=== PATIENT | male | born 1950 | race Caucasian/White ===

== ENCOUNTER → 2017-09-17 09:25 | Outpatient (CLI) | payer OTHER, SELFPAY ==
[2017-09-17 12:24] LABS: Absolute Lymphocyte Count 1.58 X10^3/ul (0.83-4.51); Absolute Neutrophil Count 4.3 X10^3/uL (2.0-7.7); Basophil# 0.08 X10^3/uL; Basophil% 1.2 % (0-1); Eosinophil# 0.14 X10^3/uL; Eosinophils% 2.1 % (0-5); Hematocrit 26.2 % (40-54); Hemoglobin 7.7 g/dl (13.0-16.5); Lymphocyte # 1.58 X10^3/ul (4.0); Lymphocyte % 23.2 % (19-41); Mean Corp Hgb Conc 29.4 g/gl (32-36); Mean Corpuscular Hgb 22.4 pg (27.0-32.0); Mean Corpuscular Volume 76.2 fL (80-94); Mean Platelet Vol. 12.3 fl (6.2-12.0); Monocyte# 0.72 X10^3/uL; Monocyte% 10.6 % (0-10); Neutrophil # 4.28 X10^3/uL (2.7-7.7); Neutrophil % 62.8 % (47-70); Platelet Count 254 K/mm3 (150-450); RBC Distribution Width CV 17.7 % (11.6-14.6); RBC Distribution Width SD 46.1 fl (35.1-43.9); Red Blood Count 3.44 M/mm3 (4.6-6.2); White Blood Count 6.8 K/mm3 (4.4-11.0)
[2017-09-17 12:26] LABS: POSITIVE COUNT NO; POSITIVE DIFFERENTIAL NO; POSITIVE MORPHOLOGY NO
[2017-09-17 12:43] LABS: Alanine Aminotransfer ALT/SGPT 23 U/L (16-61); Anion Gap 8 (5-15); BUN 16 mg/dL (7-18); BUN/Creat Ratio 22.1 RATIO (10-20); Calcium,Total 8.7 mg/dL (8.5-10.1); Chloride 106 mmol/L (98-107); Cholesterol 132 mg/dL (200); Creatinine, Serum 0.72 mg/dL (0.70-1.30); EST Glomerular Filtration Rate 115 mL/min (>60); Est Glom Filt Rate - Afr Amer 139 mL/min (>60); Glucose 88 mg/dL (74-106); High Density Lipoprotein 55 mg/dL; Iron 15 ug/dL (65-175); Iron Binding Capacity,Total 342 ug/dL (250-450); Potassium 4.2 mmol/L (3.5-5.1); Sodium Level 140 mmol/L (136-145); Triglycerides 112 mg/dL; Very Low Density Lipoprotein 22 mg/dL (5-40)
== END ==
DX: E78.00 Pure hypercholesterolemia, unspecified (principal); I10 Essential (primary) hypertension; D50.9 Iron deficiency anemia, unspecified
CPT/HCPCS: 36415; 80048; 80061; 83540; 83550; 84443; 84460; 85025

== ENCOUNTER 2018-04-30 13:30 | Outpatient (RCR) | payer OTHER, SELFPAY ==
--- NOTE | 2018-01-13 17:06 | HP.PTEVAL ---
Patient's Visit Information MIHAI LAURENT is a 67 year old M referred to Physical Therapy by GERSON LORENZANA with a diagnosis of gait instability, freq falls. Date of Evaluation: 01/13/18 Physical Therapist: Azucena Bland - Visit Plan Frequency: 2x /Week Duration: 6 Weeks Plan: 2X/ week for 6 weeks for hip, knee, ankle, and core strengthening, gait training, balance activities, functional activities such as curb steps, sit to stands with HEP (HEP given at time of eval: bridges, CLAM shells, standing heel and toe raises holding onto chair, and seated heel and toe raises for circualation) - Subjective Subjective: Pt reports that he has swollen legs for a few weeks now. Dr has no idea why he has swollen legs. He has COPD and circulatory issues and could be related to that. Pt has been on compression socks since last week and he is soaking feet in Epsom salts at night and puts feet up at night....They think that it has helped some. His feet hurt when he walks. is concerned about his Quad strength and keeping him mobile. For last 5 years he has not worked since his heart attack and very sedentary. He has drop foot on L leg...better than what it was... almost tripped on the way in here today. In the summer he goes to [employer] and back and that is it. 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 Pt has a double scoliosis and pain in his spine for which he goes to pain management. He does not want to do PT and does not want to exercise. He likes to read mostly.... He does not work around the house. He still drives. He falls a lot....had some bad falls (cracked open face at [employer], fallen and cracked ribs at home). He had an open heart surgery and was in surgery for 12 hours and they think that he was in that position for too long. Drop foot increases when tired. He is ok on stairs as long as he has a hand rail. He lives in an anti-gravity chair. He has pushes up on the vanity in the bathroom.. Curb steps...he thinks he can do ok with it. Has O2 at night or sitting in a chair to help with circulation with his feet. - Pain c-spine Pain Intensity (Out of 10): 6 L arm pain Pain Intensity (Out of 10): 0 Comment: comes and goes with angina upper back pain Pain Intensity (Out of 10): 6 - Objective sit to stand...unable to get up with out using his arms. LE MMT: hip abd B 4/5, hip ext B 3-/5, hip flex B 3+/5, knee flex B 4-/5, knee ext B 4-/5, Able to heel raise, able to toe raise on the R but not on the L, Pt only able to do 1//4 ROM bridge. L drop foot. Pt has pretty significant scoiliosis. Gait: walks with increase veering, increase hip flexion and knee flexion to clear L foot. Tight B heel cords. FGA: 8 (high risk for falls) - Balance Scores Functional Gait Assessment Score: 8 % Disability: 73.3400 - Goals Goal 1:: I HEP Goal Time Frame: 4-6 Weeks Goal 2:: Increase FGA by 5 points to 13 to decrease fall risk Goal Time Frame: 4-6 Weeks Goal 3:: Be able to get up out of a chair without the use of his UE's 1/3 attempts Goal Time Frame: 4-6 Weeks Goal 4:: Increase LE strength by 1/2 muscle grade to increase fucntional transfers and decrease fall risk. Goal Time Frame: 4-6 Weeks - Rehabilitation Potential Rehabilitation Potential: Good - Anticipated Interventions Patient/Client Instruction: Educate patient on: Condition, Plan of Care For the Purpose of:: To decrease swelling/inflammation, To increase ROM, To improve nutrient delivery to tissue, To improve muscle performance and motor function, To improve ability to perform ADL's, To increase tolerance to activity/condition/position, To improve performance and independence with ADL's, To improve ability of physical actions for home/community/work/leisure, To improve gait and locomotor functions, To increase flexibility/ROM, To improve balance, To improve safety with gait Therapeutic Exercise to Include: Strength training, Balance training, Postural training, Gait and locomotor training, Passive ROM, Dynamic Lumbar Stabilization, Scapular Strength/Stabilization For the Purpose of:: To increase ROM, To improve nutrient delivery to tissue, To increase oxygenation perfusion, To improve muscle performance and motor function, To improve ability to perform ADL's, To increase tolerance to activity/condition/position, To improve performance and independence with ADL's, To improve ability of physical actions for home/community/work/leisure, To improve gait and locomotor functions, To increase flexibility/ROM, To improve balance, To improve safety with gait Functional Training to Include: Gait training For the Purpose of:: To improve gait and locomotor functions, To improve safety with gait Thank you for the opportunity to evaluate your patient. For Medicare and Medicare HMO plans, please review the plan of care and approve it. It will need to be FAXED BACK to us at [phone] for Medicare purposes. Please let me know if there are questions or concerns regarding this plan of care. Physician Signature: Date:
--- NOTE | 2018-04-06 16:42 | HP.PTREVAL_ITS ---
GERSON LORENZANA, It has been my pleasure to treat MIHAI LAURENT over the last 19 visits for gait instability, freq falls. Please see the progress note below for an update on the physical therapy plan of care! Subjective: Pt reports that he will go home and do a little exercises but not much. He notices increase strength (approx 30). Objective/Function: FGA 10. LE MMT: hip flex B 4-/5, B knee flex 4-/5, B knee ext 4-/5, jip abd B 4-/5 Plan Plan: Issued HEP today and will see pt 2X/ week for 3 weeks with the pt doing HEP at home to reach goals especially with ease of getting our of a chair Goals Goal 1:: I HEP Goal Time Frame: 4-6 Weeks Goal 2:: Increase FGA by 5 points to 13 to decrease fall risk Goal Time Frame: 4-6 Weeks Goal Progress: Progressing Goal 3:: Be able to get up out of a chair without the use of his UE's 1/3 attempts Goal Time Frame: 4-6 Weeks Goal 4:: Increase LE strength by 1/2 muscle grade to increase fucntional transfers and decrease fall risk. Goal Time Frame: 4-6 Weeks Anticipated Interventions Patient/Client Instruction: Educate patient on: Condition, Plan of Care For the Purpose of:: To decrease swelling/inflammation, To increase ROM, To improve nutrient delivery to tissue, To improve muscle performance and motor function, To improve ability to perform ADL's, To increase tolerance to activity/condition/position, To improve performance and independence with ADL's, To improve ability of physical actions for home/community/work/leisure, To improve gait and locomotor functions, To increase flexibility/ROM, To improve balance, To improve safety with gait Therapeutic Exercise to Include: Strength training, Balance training, Postural training, Gait and locomotor training, Passive ROM, Dynamic Lumbar Stabi lization, Scapular Strength/Stabilization For the Purpose of:: To increase ROM, To improve nutrient delivery to tissue, To increase oxygenation perfusion, To improve muscle performance and motor function, To improve ability to perform ADL's, To increase tolerance to activity/condition/position, To improve performance and independence with ADL's, To improve ability of physical actions for home/community/work/leisure, To improve gait and locomotor functions, To increase flexibility/ROM, To improve balance, To improve safety with gait Functional Training to Include: Gait training For the Purpose of:: To improve gait and locomotor functions, To improve safety with gait Please do not hesitate to contact me at [phone] by phone or if you have questions or concerns regarding this new plan of care! Sincerely, Azucena Bland
--- NOTE | 2018-04-30 14:18 | HP.PTDCSUM ---
HP - PT D/C Summary It has been my pleasure to treat MIHAI LAURENT under orders from GERSON LORENZANA, for the diagnosis of gait instability, freq falls for a total of 25 visit(s). Discharge Date: 04/30/18 Please see the following information for a summary of their discharge status. - Subjective Subjective: Pt is doing some leg exercises at home. He feels that he has made some improvement. Pt has to make a follow up appointment with his Dr. - Pain c-spine Pain Intensity (Out of 10): 6 L arm pain Pain Intensity (Out of 10): Unrated upper back pain Pain Intensity (Out of 10): 6 - Overall Improvement % Improvement: 30 - Objective Objective/Function: At this point I feel that the patients balance is limited by his L drop foot and the extreme weakness in his L leg. He might benefit from an AFO at this point. L leg MMT: hip flex 3+/5, knee ext 3-/4, knee flex 4-/5, hip abd 3+/5, DF 3-/5. Sit to stand: not able to get up out of a chair without the use of his UE. Gait: increased veering wtih gait, unable to walk with his eyes closed as he needs min A to help correct off balance. FGA 10 - Goals Goal 1:: I HEP Goal Progress: Goal Met Goal 2:: Increase FGA by 5 points to 13 to decrease fall risk Goal Progress: Progressing Goal 3:: Be able to get up out of a chair without the use of his UE's 1/3 attempts Goal 4:: Increase LE strength by 1/2 muscle grade to increase fucntional transfers and decrease fall risk. Goal Progress: Progressing - Plan Plan: DC PT at this time as I feel pt is able to do HEP and discussed a discounted gym memeber ship to keep his strength up - D/C Information Discharge Comments: DC PT to home exercises or a post-rehab gym membership If there are questions or concerns regarding this patient's physical therapy, please feel free to call me at [phone]. Thank you for the referral of this patient. Sincerely, Azucena Bland
== END 2018-04-30 19:00 | disposition home or self-care (01) ==
LOC: PT 13:30
DX: R29.898 Other symptoms and signs involving the musculoskeletal system (principal); R26.81 Unsteadiness on feet; Z91.81 History of falling
CPT/HCPCS: 97110; 97162; 97530

== ENCOUNTER 2018-09-22 15:00 | Outpatient (RCR) | payer OTHER, SELFPAY ==
--- NOTE | 2018-07-07 15:58 | HP.PTEVAL_ITS ---
Patient's Visit Information MIHAI LAURENT is a 67 year old M referred to Physical Therapy by GERSON LORENZANA with a diagnosis of Muscular Deconditioning, Risk for falls, DDD c-spine. Date of Evaluation: 07/07/18 Physical Therapist: HOLDEN Stringer - Visit Plan Frequency: 2x /Week Duration: 6 Weeks Plan: Strongly Recommend an AFO for the L foot. Pt reports that he will think about it. Think his overall balace and stability will improve with one. 2X/ week for 5 weeks for LE strengthening, postural exercises, balance and gait activities with functional activities such as sit to stand and stairs and curb steps. - Subjective Findings: Pt said that his Dr told him to come back to PT due to weakness, fall risk, and DDD of the c-spine. Pt reports that he has a degeneration of the neck and causing neck pain and kypho-scoliosis as well. He is in a pain management program in [place] and they do narcotics for his pain. He has weakness in his legs and causes him to have trouble stairs, walking, getting out of a chair, He reports that he is in a fair amount of pain in neck and L arm. He has seen a specialist in the past for that but they could not do anything for him and surgery was not recommended. Pt reports that his last fall was awhile ago. He reports that he is doing some exercises from last PT session such as sit to stands. Ptg reports that his feet have been bothering him and he reports that he thinks he has neuropathy in feet and hands and that they are cold most of the time. Pt reports that he has had PT before and it was not all that helpful either was the TENS unit. - Pain neck and L arm Pain Intensity (Out of 10): 6 - Objective Posture: Rounded shoulders with fw head in creased throacic kyphosis. UE MMT: shld flex 3+/5 B, shld abd 3+/5, B ER 4-/5, B IR 4/5. LE MMT: hip flex B 3+/5, knee ext B 4-/5, knee flex R 4/5 and L 4-/5, B hip abd 4/5, B hip ext 3-/5, pt is unable to rise toes in standing on the L worse than the R, and only 1/4 normal ROM with standing heel raises. Sit to stand: unable without UE support. Pt rewuires 2 hands to do sit to stand transfers. Stairs: up and down recip with 2 hand rails. FGA: 02/01. Gait: pt walks with occ veering and he steps out with WBOS to catch himself, pt tripped over his L foot twice with walking approx 40 feet and he was able to catch himself by stepping forward with his - Balance Scores Functional Gait Assessment Score: 7 % Disability: 76.6700 - Goals Goal 1:: I HEP Goal Time Frame: 4-6 Weeks Goal 2:: Increase B LE strength by 1/2 muscle grade ( at time of the eval: LE MMT: hip flex B 3+/5, knee ext B 4-/5, knee flex R 4/5 and L 4-/5, B hip abd 4/5, B hip ext 3-/5, pt is unable to rise toes in standing on the L worse than the R, and only 1/4 normal ROM with standing heel raises). Goal Time Frame: 4-6 Weeks Goal 3:: Increase FGA by 5 points to decrease fall risk (at time of eval score was 02/01) Goal Time Frame: 4-6 Weeks - Rehabilitation Potential Rehabilitation Potential: Good - Anticipated Interventions Patient/Client Instruction: Educate patient on: Condition For the Purpose of:: To improve muscle performance and motor function, To improve ability to perform ADL's, To increase tolerance to activity/condition/position, To improve performance and independence with ADL's, To improve ability of physical actions for home/community/work/leisure, To improve gait and locomotor functions, To improve balance, To improve safety with gait Therapeutic Exercise to Include: Strength training, Endurance training, Balance training, Postural training, Flexibilty training, Gait and locomotor training, Passive ROM, Active ROM, Scapular Strength/Stabilization For the Purpose of:: To improve nutrient delivery to tissue, To improve muscle performance and motor function, To improve ability to perform ADL's, To increase tolerance to activity/condition/position, To improve performance and independence with ADL's, To improve ability of physical actions for home/community/work/leisure, To improve gait and locomotor functions, To improve balance, To improve safety with gait Functional Training to Include: Gait training For the Purpose of:: To improve gait and locomotor functions, To improve safety with gait Thank you for the opportunity to evaluate your patient. For Medicare and Medicare HMO plans, please review the plan of care and approve it. It will need to be FAXED BACK to us at [phone] for Medicare purposes. For Medicare only, by signing this I certify the plan of care. Please let me know if there are questions or concerns regarding this plan of care. Physician Signature: Date:
--- NOTE | 2018-08-11 15:29 | HP.PTREVAL ---
GERSON LORENZANA, It has been my pleasure to treat MIHAI LAURENT over the last 8 visits for Muscular Deconditioning, Risk for falls, DDD c-spine. Please see the progress note below for an update on the physical therapy plan of care! Subjective: Pt reports that he missed several appointments over the last few weeks due to a bronchial infection. Pt feels that he is somewhat better overall with strength and balance. Pt did try his 5 year old AFO and it hurt his foot. He is doing exercises at home: sit to stand, Raising up on toes and back on heels. Objective/Function: LE MMT: hip flex B 3+/5, knee ext B 4/5, knee flex R 4/5 and L 4-/5, B hip abd 4/5, B hip ext 3-/5, pt is unable to rise toes in standing on the L worse than the R, and only 1/4 normal ROM with standing heel raises). FGA: 10. Gait: walks with increase veering at times with decreased stance time on the L. Sit to stands: improved...able to get up from a chair with 1 hand on the seat on first attempt. Plan Plan: Additional 2X/ week for 4 weeks for LE strengthening, postural exercises, balance and gait activities with functional activities such as sit to stand and stairs and curb steps. Goals Goal 1:: I HEP Goal Time Frame: 4-6 Weeks Goal 2:: Increase B LE strength by 1/2 muscle grade ( at time of the eval: LE MMT: hip flex B 3+/5, knee ext B 4-/5, knee flex R 4/5 and L 4-/5, B hip abd 4/5, B hip ext 3-/5, pt is unable to rise toes in standing on the L worse than the R, and only 1/4 normal ROM with standing heel raises). Goal Time Frame: 4-6 Weeks Goal Progress: Progressing Goal 3:: Increase FGA by 5 points to decrease fall risk (at time of eval score was 7/30) Goal Time Frame: 4-6 Weeks Goal Progress: Progressing Anticipated Interventions Patient/Client Instruction: Educate patient on: Condition For the Purpose of:: To improve muscle performance and motor function, To improve ability to perform ADL's, To increase tolerance to activity/condition/position, To improve performance and independence with ADL's, To improve ability of physical actions for home/community/work/leisure, To improve gait and locomotor functions, To improve balance, To improve safety with gait Therapeutic Exercise to Include: Strength training, Endurance training, Balance training, Postural training, Flexibilty training, Gait and locomotor training, Passive ROM, Active ROM, Scapular Strength/Stabilization For the Purpose of:: To improve nutrient delivery to tissue, To improve muscle performance and motor function, To improve ability to perform ADL's, To increase tolerance to activity/condition/position, To improve performance and independence with ADL's, To improve ability of physical actions for home/community/work/leisure, To improve gait and locomotor functions, To improve balance, To improve safety with gait Functional Training to Include: Gait training For the Purpose of:: To improve gait and locomotor functions, To improve safety with gait Please do not hesitate to contact me at [phone] by phone or if you have questions or concerns regarding this new plan of care! Sincerely, Azucena Bland, MPT
--- NOTE | 2018-09-22 16:47 | HP.PTREVAL ---
GERSON LORENZANA, It has been my pleasure to treat MIHAI LAURENT over the last 20 visits for Muscular Deconditioning, Risk for falls, DDD c-spine. Please see the progress note below for an update on the physical therapy plan of care! Subjective: Pt reports that he feels that he is sitting to standing easier. He feels that his balance is somewhat better. He goes back to the Dr greco. Pt will not give an answer as if he is ready to be discharged.,,, he reports that it is up to his Dr. Objective/Function: Sit to stands 5/5 times with use of UE's. Sit ti stands with cushion on chair 5/5 times with no UE support. B LE MMT: hip flex B 3+/5, knee ext B 4-/5, Knee flex B 4/5, Hip abd 4/5. FGA: 11. At this point in time, pt is slowly improving and feel he would benefit from continuing with a HEP/H&W program Plan Plan: Hold chart until after Dr appointment. Goals Goal 1:: I HEP Goal Time Frame: 4-6 Weeks Goal Progress: Progressing Goal 2:: Increase B LE strength by 1/2 muscle grade ( at time of the eval: LE MMT: hip flex B 3+/5, knee ext B 4-/5, knee flex R 4/5 and L 4-/5, B hip abd 4/5, B hip ext 3-/5, pt is unable to rise toes in standing on the L worse than the R, and only 1/4 normal ROM with standing heel raises). Goal Time Frame: 4-6 Weeks Goal Progress: Progressing Goal 3:: Increase FGA by 5 points to decrease fall risk (at time of eval score was 7/30) Goal Time Frame: 4-6 Weeks Goal Progress: Progressing Anticipated Interventions Patient/Client Instruction: Educate patient on: Condition For the Purpose of:: To improve muscle performance and motor function, To improve ability to perform ADL's, To increase tolerance to activity/condition/position, To improve performance and independence with ADL's, To improve ability of physical actions for home/community/work/leisure, To improve gait and locomotor functions, To improve balance, To improve safety with gait Therapeutic Exercise to Include: Strength training, Endurance training, Balance training, Postural training, Flexibilty training, Gait and locomotor training, Passive ROM, Active ROM, Scapular Strength/Stabilization For the Purpose of:: To improve nutrient delivery to tissue, To improve muscle performance and motor function, To improve ability to perform ADL's, To increase tolerance to activity/condition/position, To improve performance and independence with ADL's, To improve ability of physical actions for home/community/work/leisure, To improve gait and locomotor functions, To improve balance, To improve safety with gait Functional Training to Include: Gait training For the Purpose of:: To improve gait and locomotor functions, To improve safety with gait Please do not hesitate to contact me at [phone] by phone or if you have questions or concerns regarding this new plan of care! Sincerely, Azucena Bland, MPT
--- NOTE | 2019-01-11 15:00 | HP.PTDCNRP_ITS ---
HP - Discharge Summary (1) - Patient Information MIHAI LAURENT was seen in my office for initial evaluation on 07/07/18. The following Plan of Care was established for this patient: Initial Frequency: 2x /Week Initial Duration: 6 Weeks - Anticipated Interventions Patient/Client Instruction: Educate patient on: Condition For the Purpose of:: To improve muscle performance and motor function, To improve ability to perform ADL's, To increase tolerance to activity/condition/position, To improve performance and independence with ADL's, To improve ability of physical actions for home/community/work/leisure, To impr ove gait and locomotor functions, To improve balance, To improve safety with gait Therapeutic Exercise to Include: Strength training, Endurance training, Balance training, Postural training, Flexibilty training, Gait and locomotor training, Passive ROM, Active ROM, Scapular Strength/Stabilization For the Purpose of:: To improve nutrient delivery to tissue, To improve muscle performance and motor function, To improve ability to perform ADL's, To increase tolerance to activity/condition/position, To improve performance and independence with ADL's, To improve ability of physical actions for home/community/work/leisure, To improve gait and locomotor functions, To improve balance, To improve safety with gait Functional Training to Include: Gait training For the Purpose of:: To improve gait and locomotor functions, To improve safety with gait This patient was last seen in our office 09/22/18. Pertinent comments regarding their Physical therapy will appear below: FATIMAH PT At this point I will be discontinuing this patient from physical therapy. I would be happy to see this patient again in the future if found appropriate by the physician. Thank you! Azucena Bland, MPT
== END 2018-09-22 19:00 | disposition home or self-care (01) ==
LOC: PT 15:00
DX: M50.30 Other cervical disc degeneration, unspecified cervical region (principal); R29.898 Other symptoms and signs involving the musculoskeletal system; Z91.81 History of falling
CPT/HCPCS: 97110; 97162; 97530

== ENCOUNTER 2018-11-05 08:21 | Emergency (ER) | payer OTHER, SELFPAY ==
[2018-07-15 16:45] VITALS: BMI 19.9
[2018-11-05 08:23] VITALS: BP 159/78; PULSE 72; RESP 18; TEMP 36.4; O2SAT 100; BMI 18.5
--- NOTE | 2018-11-05 08:50 | ED.DCSUM_ITS ---
- ER Visit Summary Date of Service: 11/05/18 Chief Complaint: [Laceration left thumb] History of Present Illness: The patient is a 68 M [presents the emergency room with complaint of left thumb laceration occurred approximately 7 PM last evening. Patient states that he is having a hard time stopping the bleeding. Patient unsure of his last tetanus. Patient states that he was trying to cut some vegetables with a knife when the injury occurred. Patient is ambidextrous.] Physical Examination: [Left thumb-patient has a superficial skin avulsion of the tip of the distal phalanx of the thumb over the palmar aspect of the pulp of the digit. The avulsion measures approximately 1 cm in diameter. There is still some small amount of active oozing of venous blood. He is neurovascularly intact otherwise. There is no trauma to the nail.] Test Results: [None indicated] Emergency Department Course and Treatment: [Patient had the wound irrigated and dried. I used Gelfoam material applied to the avulsion and obtained good hemostasis. Clean dressing was applied.] Treatment Plan: [Patient to follow-up with primary care physician in 3 to 5 days for wound check. Patient to allow with the Gelfoam material to fall off over time as a scab would. Patient to return if increasing pain, redness, swelling, purulent drainage, or condition should worsen anyway.] Disposition: [Discharged home stable condition ] Impression: [Left thumb skin avulsion-Gelfoam repair] This note was generated with [employer] dictation software. It may contain incorrect words, spelling, and punctuation that were not noted in review of the chart prior to signing ED Disposition - Plan for ED Patient: Referrals: [facility] ,Out of [Primary Care Provider] -
--- NOTE | 2018-11-05 08:50 | ED.DEP ---
ED Disposition - Plan for ED Patient: Instructions: ED Laceration Hand Referrals: [facility],Out of [Primary Care Provider] - 3-5 Days
[2018-11-05] MEDS: Diphth,Pertuss(Acell),Tet Vac 0.5 ML Vial IM (09:18)
== END 2018-11-05 09:42 | disposition home or self-care (01) ==
PROVIDERS: Emergency Provider Emergency Medicine
DX: S61.002A Unspecified open wound of left thumb without damage to nail, initial encounter (principal); W26.0XXA Contact with knife, initial encounter; Y93.9 Activity, unspecified; Y92.9 Unspecified place or not applicable; Y99.9 Unspecified external cause status; I25.10 Atherosclerotic heart disease of native coronary artery without angina pectoris; I10 Essential (primary) hypertension; I25.2 Old myocardial infarction; Z95.1 Presence of aortocoronary bypass graft; Z87.891 Personal history of nicotine dependence
CPT/HCPCS: 90471; 90715; 99283

== ENCOUNTER 2019-10-14 00:26 | Inpatient (IN) | payer OTHER, MEDICARE, SELFPAY ==
[2019-10-14] VITALS (53 sets, daily range): BP systolic 63–168; BP diastolic 46–94; PULSE 65–109; RESP 14–34; TEMP 36.3–37.6; O2SAT 91–100; BMI 21.2; BMI 21.5; BMI 21.6
--- NOTE | 2019-10-14 00:34 | EKG12_ITS ---
Test Reason : CHECKQTC Blood Pressure : / mmHG Vent. Rate : 115 BPM Atrial Rate : 115 BPM P-R Int : 130 ms QRS Dur : 106 ms QT Int : 326 ms P-R-T Axes : 008 -11 209 degrees QTc Int : 450 ms Sinus tachycardia Left ventricular hypertrophy with repolarization abnormality Abnormal ECG When compared with ECG of 17-OCT-2019 09:25, MANUAL COMPARISON REQUIRED, DATA IS UNCONFIRMED Confirmed by GISELLE BORREGO, ROSA MARIA ([id number]), editor farm journal OTILIA LOPEZ ([id number]) on 10/25/2019 9:18:49 AM Referred By: LOIS Confirmed By:KRISTINA DESAI MD
--- NOTE | 2019-10-14 00:43 | ED.DCSUM_ITS ---
- ER Visit Summary Date of Service: 10/14/19 Chief Complaint: Shortness of breath History of Present Illness: The patient is a 68 M who presents with shortness of breath that became worse tonight. Patient states he has a history of COPD. Patient states he has been having subjective fevers at home. Patient admits to a cough with some clear sputum. Patient admits to some pain in his chest. Patient described as aching. Patient states his breathing is worse with any exertion. Patient states nothing has been helping with his breathing. Patient also admits to a headache. Patient also admits to some nausea and vomiting. Patient denies any lower extremity swelling. Physical Examination: Vital signs are stable except for tachycardia of 107 and a tachypnea of 24. Patient has a pulse oximeter of 98% on nonrebreather mask. Patient is in mild respiratory distress. Patient is afebrile. Oral mucosa is pink and moist. Neck is supple. Trachea is midline. There is no JVD noted. Heart was regular and tachycardic. Lungs were diminished with some mild wheezing. Abdomen is soft. Bowel sounds are normal. There is no tenderness. Cranial nerves II through XII are intact. There are no focal motor or sensory deficits noted. Extremities are intact. There is no calf tenderness or edema. Test Results: EKG shows sinus tachycardia with a rate of 107. There is left ventricular hypertrophy and strain pattern noted. There is T wave inversion in I, aVL, V5, and V6. This was essentially unchanged compared to previous EKG dated 12/14/2011. CBC was within normal limits. Comprehensive metabolic profile was essentially within normal limits. PT with INR and PTT were normal. Portable chest x-ray shows bilateral lower lobe infiltrates. This was interpreted by the radiologist and myself. Arterial blood gas showed a pH of 7.327 with a PCO2 of 42.3, PO2 of 56, bicarb of 22.1, and oxygen saturation of 86% on nonrebreather mask. Rapid strep, influenza, and RSV swabs were obtained and were negative. Respiratory panel was obtained and is pending. Emergency Department Course and Treatment: Patient was given albuterol metered- dose inhaler here. Patient was given Rocephin and Zithromax. Patient was still having shortness of breath and was working to breathe. We attempted to place the patient on 6 L nasal cannula however his oxygen saturation would drop into the 80s. I discussed intubation with the patient he was agreeable with this. I did inform him of the procedure and he was given the opportunity ask questions. Patient did not have any questions for me. Patient was given ketamine and rocuronium. Patient was intubated with 8.0 ET tube to 26 cm at the lip using a glide scope. Tube was secured in place. [place] scope was also used to place the OG tube. This was passed easily into the stomach. Postprocedure x-rays showed satisfactory placement of the endotracheal tube as well as the OG tube. Patient was placed immediately on the ventilator. Case was discussed with the alexis sanches. She will admit the patient. Disposition: Admit to ICU Impression: 1. Bilateral lower lobe pneumonia 2. Respiratory failure Critical care time: 60 minutes. This included time obtaining history, performing physical exam, reviewing old records, reviewing and interpreting test results, discussion with consultants, and treatment of the patient. This was time separate from procedures. This note was generated with [employer] dictation software. It may contain incorrect words, spelling, and punctuation that were not noted in review of the chart prior to signing ED Disposition - Plan for ED Patient: Disposition: Acute Care Hospital [facility] Diagnosis: Pneumonia of both lower lobes, Respiratory failure Referrals: [facility] Doctor,Out of [NON-STAFF] -
[2019-10-14 00:51] LABS: Absolute Lymphocyte Count 2.25 X10^3/uL (0.83-4.51); Absolute Neutrophil Count 7.6 X10^3/uL (2.0-7.7); Basophil# 0.09 X10^3/uL; Basophil% 0.8 % (0-1); Eosinophils% 0.9 % (0-5); Hematocrit 49.7 % (40-54); Hemoglobin 16.4 g/dL (13.0-16.5); Lymphocyte # 2.25 X10^3/ul (4.0); Lymphocyte % 20.7 % (19-41); Mean Corpuscular Hgb 31.7 pg (27.0-32.0); Mean Corpuscular Volume 96.1 fL (80-94); Mean Platelet Vol. 11.5 fl (6.2-12.0); Monocyte# 0.84 X10^3/uL; Monocyte% 7.7 % (0-10); NRBC Flagged by Analyzer 0 % (0-5); Neutrophil # 7.58 X10^3/uL (2.7-7.7); Neutrophil % 69.7 % (47-70); Platelet Count 166 K/mm3 (150-450); RBC Distribution Width CV 12.8 % (11.6-14.6); RBC Distribution Width SD 45.5 fl (35.1-43.9); Red Blood Count 5.17 M/mm3 (4.6-6.2); White Blood Count 10.9 K/mm3 (4.4-11.0)
--- NOTE | 2019-10-14 00:54 | EKG12_ITS ---
Test Reason : SOB Blood Pressure : / mmHG Vent. Rate : 107 BPM Atrial Rate : 107 BPM P-R Int : 158 ms QRS Dur : 134 ms QT Int : 356 ms P-R-T Axes : 063 005 104 degrees QTc Int : 475 ms Sinus tachycardia Possible Left atrial enlargement Left ventricular hypertrophy with QRS widening and repolarization abnormality Abnormal ECG When compared with ECG of 14-DEC-2011 18:23, QRS duration has increased ST no longer depressed in Anterior leads Confirmed by GISELLE BORREGO, ROAS MARIA ([id number]), greeting card editor OTILIA LOPEZ ([id number]) on 10/25/2019 9:25:43 AM Referred By: DANY Confirmed By:KRISTINA DESAI MD
[2019-10-14 01:01] LABS: Prothrombin Time (Protime)PT. 12.5 SECONDS (11.7-14.9)
[2019-10-14 01:02] LABS: Partial Thromboplast Time 28.5 Seconds (24.1-36.2)
--- NOTE | 2019-10-14 01:05 | RAD_ITS ---
STUDY: X-RAY CHEST REASON FOR EXAM: Male, 68 years old. increased shortness of breath, Hx COPD TECHNIQUE: Single AP portable view of the chest. COMPARISON: 12/14/2011. FINDINGS: Ill-defined airspace opacities are seen in the right and left lung bases suggesting bilateral pneumonia. There is small left pleural effusion. Normal size heart. Normal mediastinum and taco. Normal visualized pulmonary arteries. Normal visualized aortic arch and descending thoracic aorta. There is a dextroscoliosis of the thoracic spine. There is degenerative osteoarthritis of the bilateral shoulders. There is no demonstrated abnormality of the visualized soft tissue structures of the upper abdomen. RAD/Chest 1 View (Portable) IMPRESSION: Bilateral lower lobe pneumonia. Electronically Signed: Temi Richards, at 1:29 EDT Tel , Service support ,
[2019-10-14 01:10] LABS: AST(SGOT) 27 U/L (15-37); Alanine Aminotransfer ALT/SGPT 26 U/L (16-61); Albumin, Serum 3.9 g/dL (3.2-5.0); Alkaline Phosphatase 78 U/L (45-117); Anion Gap 8 (5-15); BUN 16 mg/dL (7-18); Calcium,Total 9.2 mg/dL (8.5-10.1); Chloride 107 mmol/L (98-107); Creatinine, Serum 0.76 mg/dL (0.70-1.30); EST Glomerular Filtration Rate 107 mL/min (>60); Est Glom Filt Rate - Afr Amer 129 mL/min (>60); Estimated Creatinine Clearance 61.64 ml/min; Globulin 3.8 g/dL (2.2-4.2); Glucose 148 mg/dL (74-106); Protein, Total 7.7 g/dL (6.4-8.2); Sodium Level 140 mmol/L (136-145)
[2019-10-14 01:22] LABS: Lactic Acid 2.3 mmol/L (0.4-1.9)
[2019-10-14 01:41] LABS: Bacteria 0 SEEN /hpf (None Seen); Mucous, Urine 0 SEEN /hpf (<or=2+); Red Blood Cells-Urine 0 SEEN /hpf (0-5); Squamous Epithelial Cells - UA 0 SEEN /hpf (0-5); White Blood Cells 0 SEEN /hpf (0-5)
[2019-10-14 01:43] LABS: Color, Urine Amber (Yellow); Glucose, Dipstick Normal (Normal); Ketone-Dipstick 15 mg/dl (Negative); Leukocyte Esterase-Dipstick 25 /ul (Negative); Nitrite-Dipstick Negative (Negative); Occult Blood-Urine Negative /ul (Negative); Protein-Dipstick 30 mg/dl (Negative); Urine Bilirubin Dipstick Negative (Negative); Urine Clarity Clear (Clear); Urine Urobilinogen 1 mg/dl (Normal)
[2019-10-14 01:54] LABS: Hyaline Cast 0-5 SEEN /lpf (0-5)
--- NOTE | 2019-10-14 02:02 | RAD_ITS ---
STUDY: X-RAY CHEST REASON FOR EXAM: Male, 68 years old. ett placement TECHNIQUE: COMPARISON: None. FINDINGS: Endotracheal tube is seen its tip is 4 cm superior to the yan. An NG tube is seen its tip is below the diaphragm is in good position. Diffuse ill-defined opacities are seen more prominent in the perihilar regions and lung bases suggesting bilateral pneumonia or pulmonary edema. There is no demonstrated pleural abnormality. Normal size heart. Normal mediastinum and taco. Normal visualized pulmonary arteries. Normal visualized aortic arch and descending thoracic aorta. Normal visualized thoracic spine. Normal visualized ribs, clavicles, and shoulders. There is no demonstrated abnormality of the visualized soft tissue structures of the upper abdomen. RAD/Chest 1 View (Portable) IMPRESSION: Diffuse ill-defined opacities are seen more prominent in the perihilar regions and lung bases suggesting bilateral pneumonia or pulmonary edema. Electronically Signed: Temi Richards, at 4:03 EDT Tel , Service support ,
--- NOTE | 2019-10-14 02:06 | ED.RN ---
Janee, called and notified that we will be intubating pt. update given by dr quiroz. Cell phone number [phone].
--- NOTE | 2019-10-14 02:22 | HP.PCM_ITS ---
Problem List (1) Severe sepsis Status: Acute (2) Acute on chronic respiratory failure with hypoxia Status: Acute (3) COPD exacerbation Status: Acute (4) Bilateral pneumonia Status: Acute Qualifiers: Pneumonia type: due to unspecified organism Lung location: lower lobe of lung Qualified Code(s): J18.9 - Pneumonia, unspecified organism (5) Suspected 2019 novel coronavirus infection Status: Acute (6) CAD (coronary artery disease) Status: Chronic Qualifiers: Coronary Disease-Associated Artery/Lesion type: unspecified vessel or lesion type [place] vs. transplanted heart: unspecified whether [place] or transplanted heart Associated angina: angina presence unspecified Qualified Code(s): I25.10 - Atherosclerotic heart disease of [place] coronary artery without angina pectoris (7) PAD (peripheral artery disease) Status: Chronic (8) HTN (hypertension) Status: Chronic Qualifiers: Hypertension type: essential hypertension Qualified Code(s): I10 - Essential (primary) hypertension (9) HLD (hyperlipidemia) Status: Chronic Qualifiers: Hyperlipidemia type: unspecified Qualified Code(s): E78.5 - Hyperlipidemia, unspecified (10) Diabetes mellitus, type II Status: Chronic Qualifiers: 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: without half-way use Diabetes mellitus complication status: with other specified complication Qualified Code(s): E11.69 - Type 2 diabetes mellitus with other specified complication (11) Heavy alcohol consumption Status: Chronic (12) Former tobacco use Status: Chronic History of Present Illness Date of Admission: 10/14/19 Chief Complaint: Dyspnea, cough, fevers The patient is a 68 y/o M w/ PMHx: Anxiety and Depression, Chronic COPD w/ Chronic Hypoxic Respiratory Failure (2L NC), Carotid artery stenosis s/p BL CEA, Hx renal artery pseudoaneursym s/p bypass, HTN, HLD, Hx Brain aneurysm s/p surgery, CAD s/p CABG, Diabetes mellitus type II who presents to the [facility] ED on 10/14/19 with history of progressively worsening dyspnea for the last 2 to 3 days, worse the evening prior to current presentation with subjective fevers at home as well as cough with only clear sputum and bilateral pleuritic chest discomfort, worse with increased respiratory effort with concurrent frontal throbbing headache as well as nausea with emesis with no abdominal pain or diarrhea but increased myalgias with no alteration to sense of taste or smell prompting eventual ED presentation. Work-up in the ED included T 98, heart rate 109, BP 168/94, respiratory rate initially 34 with 91% on room air with improvement to 97% on a nonrebreather with 10 L, CBC with WC 10.9, hemoglobin 16.4, platelet 166 without shift, unremarkable coags, CMP with glucose 148 otherwise unremarkable, lactic acid 2.3, culture x2 pending per ED, rapid group strep A preliminarily negative, rapid influenza negative, rapid RSV negative, respiratory viral panel , urinalysis pending, chest x-ray with bilateral lower lobe pneumonia, EKG with sinus tachycardia with no acute evidence of ischemia, troponin pending upon evaluation of patient. Per discussion with ED physician given increased work of breathing, accessory muscle usage, evident distress with chest x-ray with bilateral lobe pneumonia with CBC with no WBC elevation or evidence of left shift concern for possible viral pneumonia, possible COVID therefore given increased oxygen requirements (<89% on 6L) decision for intubation. Also discussed with ED physician and requested CRP, ferritin, lactic acid and pro calcitonin to be initiated in the ED with orders placed per hospitalist physician. Patient ministered IV Rocephin, azithromycin as well as pro-air albuterol treatments. Prior to intubation patient administered ketamine, propofol and rocuronium. 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 SOB (shortness of breath) R06.02 HTN (hypertension) I10 Allergies [facility] Inhibitors Allergy (Verified 10/14/19 00:33) Unknown Penicillins Allergy (Verified 10/14/19 00:33) Unknown Home Medications: Ambulatory Orders Medication Instructions Recorded albuterol sulfate 90 mcg/actuation 1 dose INHALATION PRN PRN 17 Days 07/20/17 aerosol inhaler #9 aspirin 81 mg chewable tablet 81 mg PO ONCE 07/20/17 bupropion HCl 150 mg tablet,12 hr 1 tab PO DAILY 30 Days #60 07/20/17 sustained-release clopidogrel 75 mg tablet 1 tab PO DAILY 30 Days #30 07/20/17 gabapentin 300 mg capsule 1 tab PO DAILY 30 Days #60 07/20/17 metoprolol tartrate 50 mg tablet 1.5 tab PO BID 30 Days #90 07/20/17 oxycodone 10 mg tablet,crush 0.5 tab PO TID 30 Days #60 07/20/17 resistant,extended release 12 hr pravastatin 80 mg tablet 1 tab PO DAILY 30 Days #30 07/20/17 ranolazine 1,000 mg 1 tab PO DAILY 30 Days #60 07/20/17 tablet,extended release,12 hr Minocycline HCl 1 tab PO DAILY 10/14/19 Rosuvastatin Calcium 5 mg PO DAILY 10/14/19 Surgical History: Surgical History (Last Reviewed 07/15/18 @ 16:45 by April Hyatt) H/O carotid endarterectomy Z98.890 H/O cataract extraction Z98.49 H/O heart bypass surgery Z98.890, Z95.1 Surgical History: - - CABG x2, bilateral carotid endarterectomy, 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 Psychiatric History: Anxiety, Depression Lives: Spouse/ Significant Other Smoking Status: Former smoker - Patient quit cigarette tobacco usage approximately 5 years prior he notes with prior to this 2 pack/day since he was even younger than a teenager. Tobacco Use: Non-smoker Alcohol: Heavy - Patient notes at least 2 beers or 2 glasses of wine each night. Drugs: None - *Family History Maternal History Items: Heart Disease, Hypertension Paternal History Items: Heart Disease, Hypertension Review of Systems Constitutional: Reports: Anorexia, Chills, Fever, Malaise, Weakness, Fatigue. Denies: Weight Change HEENT: Reports: Nasal Congestion, Sinus Congestion, Sore Throat. Denies: Head Aches, Sinus Drainage Cardiovascular: Reports: Chest Pain. Denies: Palpitations Respiratory: Reports: Cough, Pleuritic Pain, Shortness of Breath, Shortness of breath at rest, Shortness of breath upon exertion, Wheezing. Denies: Sputum production Gastrointestinal: Reports: Nausea, Vomiting. Denies: Abdominal Pain, Diarrhea Genitourinary: Denies: Dysuria Musculoskeletal: Reports: Back Pain, Joint Pain. Denies: Joint Tenderness Skin: Denies: Rash, Wounds Neurological: Denies: Numbness, Tingling, Focal weakness Psychiatric: Reports: Anxiety, Depression. Denies: Homicidal Ideations, Suicidal Ideations Hematologic/ Lymphatic: Denies: Easy Bruising, Easy Bleeding VTE Information - Inpt Only VTE Present on Admission: No VTE Mechan Device Prophylaxis: SCD's VTE Pharm Prophylaxis ordered?: Yes Patient Problems: Active and Suspected Problems (Last Reviewed 07/15/18 @ 16:45 by April Hyatt) Severe sepsis (Acute) Acute on chronic respiratory failure with hypoxia (Acute) COPD exacerbation (Acute) Bilateral pneumonia (Acute) Suspected 2019 novel coronavirus infection (Acute) Subjective: Patient seated upright in the ED bed, fatigued and ill-appearing, increased work of breathing, evident respiratory distress. Objective: Physical Examination: General: awake, alert, oriented x 3 and cooperative, fatigued and lethargic, ill-appearing, evident respiratory distress, seated upright in the ED bed. Skin: normal color, turgor, no icterus, cyanosis except significant bilateral lower extremity chronic venous stasis skin changes. HEENT: AT/NC, EOMI, PERRLA, dry MM, no carotid bruits or JVD noted. Lungs: Severely diffusely diminished, greater bases, a very soft anterior right expiratory wheeze but improved since initial ED presentation as had been noted per respiratory therapy to be wheezing significantly prior to albuterol MDI a pplication, no rales or ronchi noted. Heart: Mildly tachycardic with regular rhythm; no gallop, rub audible. Abdomen: soft, thin cachectic habitus, NTTP, ND, normal BS, no HSM. Extremities: no cyanosis, clubbing, or edema, see skin. Neurological: patient awake, alert, oriented x 3; cognitive function suspect not baseline intact given fatigue and lethargy and acute presentation; pupils equally reactive to light and accomodation; cranial nerves II-XII grossly normal, moving all 4 extremities, no focal deficits, strength severely globally decreased secondary to acute presentation. Psychiatric: affect appears fatigued, lethargic, ill-appearing, no acute evidence of depressive or anxiety feelings. - Physical Exam Vitals/I&O's: Vital Signs Temp Pulse Resp BP Pulse Ox 98.0 F 103 H 28 H 167/84 H 96 10/14/19 01:46 10/14/19 01:47 10/14/19 01:47 10/14/19 01:47 10/14/19 01:47 Oxygen Flow Rate (L/min) 15 Oxygen Delivery Method Non-Rebreather Weight: 139 lb 12.369 oz Body Mass Index (BMI) 21.2 Microbiology Past 72 Hours 10/14/19 00:49 Mucosa - Nose Rapid RSV (DFA) - Final 10/14/19 00:49 Mucosa - Nose Influenza Types A,B Direct FA (MARC) - Final 10/14/19 00:38 Mucosa - Throat Group A Streptococcus Rapid Screen - Preliminary Laboratory Results 10/14/19 00:38: WBC 10.9, RBC 5.17, Hgb 16.4, Hct 49.7, MCV 96.1 H, MCH 31.7, MCHC 33.0, RDW Std Deviation 45.5 H, RDW Coeff of [place] 12.8, Plt Count 166, MPV 11.5, Immature Gran % (Auto) 0.200, Neut % (Auto) 69.7, Lymph % (Auto) 20.7, [place] % (Auto) 7.7, Eos % (Auto) 0.9, Baso % (Auto) 0.8, Absolute Neuts (auto) 7.6, Absolute Lymphs (auto) 2.25, Nucleated RBC % 0 10/14/19 00:38: PT 12.5, INR 1.0, APTT 28.5 10/14/19 00:38: Sodium 140, Potassium 4.0, Chloride 107, Carbon Dioxide 25.0, Anion Gap 8, BUN 16, Creatinine 0.76, Estim Creat Clear Calc 61.64, Est GFR (MDRD) Af Amer 129, Est GFR (MDRD) Non-Af 107, BUN/Creatinine Ratio 21.0 H, Glucose 148 H, Calcium 9.2, Total Bilirubin 0.70, AST 27, ALT 26, Alkaline Phosphatase 78, Total Protein 7.7, Albumin 3.9, Globulin 3.8, Albumin/Globulin Ratio 1.0 10/14/19 00:38: Lactic Acid 2.3 H* 10/14/19 00:38: Ferritin Pending, Lactate Dehydrogenase Pending, C-React Prot Ext Range Pending 10/14/19 00:38: Procalcitonin Pending 10/14/19 00:40: Troponin I 0.037 10/14/19 01:35: Urine Color Gail, Urine Clarity Clear, Urine pH 5.0, Ur Specific [place] 1.030, Urine Protein 30 H, Urine Glucose (UA) Normal, Urine Ketones 15 H, Urine Occult Blood Negative, Urine Nitrite Negative, Urine Bilirubin Negative, Urine Urobilinogen 1 H, Ur Leukocyte Esterase 25 H, Urine RBC 0 SEEN, Urine WBC 0 SEEN, Ur Squamous Epith Cells 0 SEEN, Urine Bacteria 0 SEEN, Hyaline Casts 0-5 SEEN, Urine Mucus 0 SEEN Current Medications Fentanyl () 100 mls @ 2.5 mls/hr IV UD [place]; Protocol Propofol (Diprivan) 1,000 mg in 100 mls @ 3.804 mls/hr CONT INF .Q12H [place]; Protocol Assessment/Plan All Active Problems (Last Reviewed 07/15/18 @ 16:45 by April Hyatt) Severe sepsis (Acute) Acute on chronic respiratory failure with hypoxia (Acute) COPD exacerbation (Acute) Bilateral pneumonia (Acute) Suspected 2018 novel coronavirus infection (Acute) Bronchitis (Acute) URI (upper respiratory infection) (Acute) Sinusitis, acute maxillary (Acute) The patient is a 68 y/o M w/ PMHx: Anxiety and Depression, Chronic COPD w/ Chronic Hypoxic Respiratory Failure (2L NC), Carotid artery stenosis s/p BL CEA, Hx renal artery pseudoaneursym s/p bypass, HTN, HLD, Hx Brain aneurysm s/p surgery, CAD s/p CABG, Diabetes mellitus type II who presents to the [facility] ED on 10/14/19 with history of progressively worsening dyspnea for the last 2 to 3 days, worse the evening prior to current presentation with subjective fevers at home as well as cough with only clear sputum and bilateral pleuritic chest discomfort, worse with increased respiratory effort with concurrent frontal throbbing headache as well as nausea with emesis with no abdominal pain or diarrhea but increased myalgias. 1. Acute Severe Sepsis secondary to Acute Hypoxic Respiratory Failure secondary to Acute on Chronic COPD Exacerbation with Bilateral Pneumonia secondary to Suspected Acute Viral Syndrome, COVID-19: Will admit to the ICU, maintain on COVID precautions, maintain intubated, sedated status, sustainable design coordinator consultation, continue ATC duoneb, PRN albuterol, maintain on IV solumedrol given concurrent COPD exacerbation, maintain on IV Rocephin and Azithromycin although will defer to ICU physician if preference to broaden given severity, HOB, IS parameters w/ pending sputum cultures and urine antigens, pending respiratory viral panel will obtain procalcitonin, CRP, CPK, Ferritin, LDH, Alk phos/AST/ALT, EKG with no acute evidence of ischemia, troponin pending upon requested evaluation of patient, continue supportive care including q 2 hour turning including prone given no prone bed availability and judicious hydration, closely monitor for worsening status for ARDS and multiorgan failure, will request COVID-19 testing and if worsening status would consider initiation of hydroxychloroquine with close EKG monitoring for QT prolongation with trending of the liver functions. 2. CAD: Status post CABG x 2, will continue patient on aspirin, Plavix, metoprolol, statin therapy, Ranexa. If COVID positive may necessitate temporarily hold on metoprolol given history of several patients with VT episodes on beta-chantel therapies. 3. Hypertension: Continue home regimen including metoprolol, PRN hydralazine. 4. Hyperlipidemia: Continue home statin regimen. 5. Carotid artery stenosis: Status post BL carotid endarterectomy, continue on aspirin, Plavix, statin and hypertensive regimen. 6. Renal artery pseudoaneurysm: Status post bypass, continue on aspirin, Plavix, statin and hypertensive regimen. 7. History of brain aneurysm: History of surgical intervention, resolved per patient report. 8. Anxiety and depression: We will continue patient home bupropion regimen. 9. Severe protein calorie malnutrition: Evidenced per habitus, obvious fat and muscle loss, will consider nutrition consultation. 10. Heavy alcohol intake: Patient notes routine consumption of at least 2 glasses of either beer or wine each night. To be cautious as potentially higher intake daily will maintain on CIWA protocol, MVI, thiamine and folic acid. Magnesium and phosphorus levels requested. 11. Chronic pain syndrome: We will hold patient oral scheduled narcotics given fentanyl drip usage, once de-escalate it off this if able to do so would need to reinitiate on therapy. 12. DVT prophylaxis: SCDs, Lovenox. 13. CODE status: Patient HCPYADIEL is his who was contacted and discussed patient's current presentation and plan of care, living will is currently in place per patient report. Discussed CODE status at length including difference between FULL code, DNR-CCA and DNR-CC status. Following discussions about the differences in these status, requested full code status. Advanced Care Planning Face to Face Time: 16 minutes. Inpatient E&M: 80674 Init Hosp L3 Procedures: 35405 Advncd Care Plan 30 Min
[2019-10-14 02:24] LABS: Procalcitonin < 0.04 ng/mL (0.00-0.09)
[2019-10-14] MEDS: Rocuronium Bromide 50 MG/5 ML Vial 40 MG IV (02:24)
--- NOTE | 2019-10-14 02:33 | ED.RN ---
0220 kane jensen at the bedside preparing for intubation.0225 Ett 8.0, 26 at the lip line, lungs sound equal bilat.
--- NOTE | 2019-10-14 02:40 | RAD_ITS ---
STUDY: X-RAY - ABDOMEN/PELVIS REASON FOR EXAM: Male, 68 years old. NG/OG TUBE PLACEMENT TECHNIQUE: Single AP view of the abdomen / pelvis. COMPARISON: None. FINDINGS: Small bilateral pleural effusions.. An NG tube is seen with tip within the gastric lumen is in good position. There is an unremarkable bowel gas pattern. There is no demonstrated free abdominal air. The visualized liver, spleen and kidneys are grossly normal in size and morphology. Normal soft tissue structures. Normal visualized osseous structures. RAD/Abdomen Single View IMPRESSION: An NG tube is seen with tip within the gastric lumen is in good position. Electronically Signed: Temi Richards, at 2:58 EDT Tel , Service support ,
[2019-10-14] MEDS: Propofol 10MG/Ml 1,000 MG/100 ML Bottle 3.8 MG CONT INF (02:41)
[2019-10-14] MEDS: fentaNYL drip 100 ML 2.5 MCG IV (02:52)
--- NOTE | 2019-10-14 03:17 | ED.RN ---
0255 BILAT SOFT WRIST RESTRAINTS APPLIED.
--- NOTE | 2019-10-14 03:17 | ED.RN ---
REPORT CALLED TO RACHEL LLOYD
[2019-10-14 03:26] LABS: Ferritin 182 ng/mL (26-388); LDH 228 U/L (87-241)
[2019-10-14 03:41] LABS: Magnesium 2.1 mg/dL (1.6-2.6); Phosphorus 4.2 mg/dL (2.5-4.9)
--- NOTE | 2019-10-14 04:30 | NURSING ---
Pt arrived to floor awake and disoriented, attempting to dislodge ETT; pt's propofol and fentanyl increased, pt needing physically restrained by multiple staff to secure airway. Pt transferred over into ICU 5, room monitor applied; cont to increase sedation as RASS is +4 and airway is at risk.
[2019-10-14] MEDS: 0.9% Normal Saline 1,000 ML 100 ML IV ×2 (04:45→14:30)
[2019-10-14 04:46] LABS: Reflex Lactate? Y
--- NOTE | 2019-10-14 05:02 | ED.RN ---
0300 dr jensen verified placement of og and ett.
[2019-10-14 05:08] LABS: Lactic Acid 2.3 mmol/L (0.4-1.9)
[2019-10-14 05:30] LABS: Absolute Lymphocyte Count 0.72 X10^3/uL (0.83-4.51); Absolute Neutrophil Count 10.9 X10^3/uL (2.0-7.7); Basophil# 0.06 X10^3/uL; Basophil% 0.5 % (0-1); Hematocrit 46.4 % (40-54); Hemoglobin 15.1 g/dL (13.0-16.5); Lymphocyte # 0.72 X10^3/ul (4.0); Lymphocyte % 5.8 % (19-41); Mean Corp Hgb Conc 32.5 g/dL (32-36); Mean Corpuscular Hgb 31.5 pg (27.0-32.0); Mean Corpuscular Volume 96.7 fL (80-94); Mean Platelet Vol. 12.2 fl (6.2-12.0); Monocyte# 0.76 X10^3/uL; Monocyte% 6.1 % (0-10); NRBC Flagged by Analyzer 0 % (0-5); Neutrophil # 10.88 X10^3/uL (2.7-7.7); Platelet Count 145 K/mm3 (150-450); RBC Distribution Width CV 12.8 % (11.6-14.6); RBC Distribution Width SD 45.8 fl (35.1-43.9); White Blood Count 12.5 K/mm3 (4.4-11.0)
[2019-10-14 05:47] LABS: ALB/GLOB Ratio 0.9 RATIO (0.9-2.4); AST(SGOT) 35 U/L (15-37); Alanine Aminotransfer ALT/SGPT 23 U/L (16-61); Albumin, Serum 3.3 g/dL (3.2-5.0); Alkaline Phosphatase 73 U/L (45-117); Anion Gap 11 (5-15); BUN 19 mg/dL (7-18); BUN/Creat Ratio 26.2 RATIO (10-20); Calcium,Total 8.4 mg/dL (8.5-10.1); Chloride 104 mmol/L (98-107); Creatinine, Serum 0.72 mg/dL (0.70-1.30); EST Glomerular Filtration Rate 114 mL/min (>60); Est Glom Filt Rate - Afr Amer 137 mL/min (>60); Estimated Creatinine Clearance 58.92 ml/min; Globulin 3.6 g/dL (2.2-4.2); Glucose 169 mg/dL (74-106); Protein, Total 6.9 g/dL (6.4-8.2); Sodium Level 138 mmol/L (136-145)
--- NOTE | 2019-10-14 06:33 | PCM.CON.CC ---
Reason for Consult Date of Consultation: 10/14/19 Reason for Consultation: Acute hypoxemic respiratory failure History of Present Illness: The patient is a 68-year-old male, with a history as outlined below, who presented to the emergency department on October 13 with complaints of shortness of breath. History pertinent to his hospitalization was obtained primarily via chart review, as the patient is currently intubated and there is no family members available at the bedside. The patient also apparently reported subjective fevers at home along with a cough productive of sputum. The patient does have a known history of COPD with an FEV1 of 56% of predicted, based upon PFTs completed in 2014. The patient regularly utilizes 2 L/min of supplemental oxygen at his baseline. He also has an apparent history of coronary artery disease status post CABG. On presentation to the emergency department, the patient was noted to be afebrile and hemodynamically stable. He was also documented to be hypoxemic and tachypneic. Initial laboratory evaluation revealed no evidence of a leukocytosis. Chemistry profile was unremarkable, with the exception of an elevated lactate to 2.3. Troponin was negative. Procalcitonin level was normal. UA was unremarkable. MRSA screen was negative. Chest x-ray was notable for bilateral lower lobe airspace opacities. Rapid influenza screen was negative. Respiratory viral panel was negative. Due to the patient's increased work of breathing and concerns for impending respiratory failure, the patient was intubated in the emergency department. The patient was placed on broad-spectrum antimicrobials and admitted to the medical intensive care unit for further management. 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 SOB (shortness of breath) R06.02 HTN (hypertension) I10 Allergies VALENTINA Inhibitors Allergy (Verified 10/14/19 00:33) Unknown Penicillins Allergy (Verified 10/14/19 00:33) Unknown Home Medications: Ambulatory Orders Medication Instructions Recorded albuterol sulfate 90 mcg/actuation 1 dose INHALATION PRN PRN 17 Days 07/20/17 aerosol inhaler #9 aspirin 81 mg chewable tablet 81 mg PO ONCE 07/20/17 bupropion HCl 150 mg tablet,12 hr 1 tab PO DAILY 30 Days #60 07/20/17 sustained-release clopidogrel 75 mg tablet 1 tab PO DAILY 30 Days #30 07/20/17 gabapentin 300 mg capsule 1 tab PO DAILY 30 Days #60 07/20/17 metoprolol tartrate 50 mg tablet 1.5 tab PO BID 30 Days #90 07/20/17 oxycodone 10 mg tablet,crush 0.5 tab PO TID 30 Days #60 07/20/17 resistant,extended release 12 hr pravastatin 80 mg tablet 1 tab PO DAILY 30 Days #30 07/20/17 ranolazine 1,000 mg 1 tab PO DAILY 30 Days #60 07/20/17 tablet,extended release,12 hr Minocycline HCl 1 tab PO DAILY 10/14/19 Rosuvastatin Calcium 5 mg PO DAILY 10/14/19 Surgical History: Surgical History (Last Reviewed 07/15/18 @ 16:45 by April Hyatt) H/O carotid endarterectomy Z98.890 H/O cataract extraction Z98.49 H/O heart bypass surgery Z98.890, Z95.1 Surgical History: - - CABG x2, bilateral carotid endarterectomy, 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 Psychiatric History: Anxiety, Depression Lives: Spouse/ Significant Other Smoking Status: Former smoker Tobacco Use: Non-smoker Alcohol: Heavy - Patient notes at least 2 beers or 2 glasses of wine each night. Drugs: None - *Family History Maternal History Items: Heart Disease, Hypertension Paternal History Items: Heart Disease, Hypertension Review of Systems Unable to obtain accurate/complete ROS d/t: Due to current intubation and mechanical ventilation status. Patient Problems: Active and Suspected Problems (Last Reviewed 07/15/18 @ 16:45 by April Hyatt) Severe sepsis (Acute) Acute on chronic respiratory failure with hypoxia (Acute) COPD exacerbation (Acute) Bilateral pneumonia (Acute) Suspected 2019 novel coronavirus infection (Acute) Pneumonia of both lower lobes (Acute) Respiratory failure (Acute) Objective: The patient's most recent lab work, culture data and imaging studies have all been personally reviewed. - Physical Exam Vitals/I&O's: Vital Signs Temp Pulse Resp BP Pulse Ox 99.1 F 72 16 93/61 100 10/14/19 04:30 10/14/19 05:31 10/14/19 05:30 10/14/19 05:30 10/14/19 05:30 Oxygen Flow Rate (L/min) 100 Oxygen Delivery Method Mechanical Ventilator Weight: 133 lb 9.602 oz Body Mass Index (BMI) 21.5 Intake and Output for Last 24 Hours 10/12/19 10/13/19 10/14/19 23:59 23:59 23:59 Intake Total 336.04 / 336.04 Balance 336.04 / 336.04 General: - - Intubated, sedated and mechanically ventilated. Occasional ventilator dyssynchrony noted. HEENT: Atraumatic, PERRLA, Normocephalic Oral: Moist Mucosa, - - Endotracheal and OG tubes in place Neck: Supple, No Nodes, Trachea Midline Lungs: No rhonchi, No wheeze, No rales, Diminished, Tachypneic Cardiovascular: Normal S1, Normal S2, No murmurs, Tachycardic Abdomen: Bowel Sounds Present, Soft, Non Tender Extremities: No clubbing, No cyanosis, No edema Skin: No breakdown Musculoskeletal: No Muscle Wasting Lymphatic: No Cervical, Supraclavicular, or Inguinal Adenopathy Neurological: - - No focal neurological deficits. Moves all extremities spontaneously. Psych/Mental Status: Agitated, Restless Labs (Last 48 Hours) 10/14/19 10/14/19 10/14/19 00:38 00:38 00:38 WBC 10.9 RBC 5.17 Hgb 16.4 Hct 49.7 MCV 96.1 H MCH 31.7 MCHC 33.0 RDW Std Deviation 45.5 H RDW Coeff of X[place] 12.8 Plt Count 166 MPV 11.5 Immature Gran % (Auto) 0.200 Neut % (Auto) 69.7 Lymph % (Auto) 20.7 [place] % (Auto) 7.7 Eos % (Auto) 0.9 Baso % (Auto) 0.8 Absolute Neuts (auto) 7.6 Absolute Lymphs (auto) 2.25 Nucleated RBC % 0 PT 12.5 INR 1.0 APTT 28.5 Sodium 140 Potassium 4.0 Chloride 107 Carbon Dioxide 25.0 Anion Gap 8 BUN 16 Creatinine 0.76 Estim Creat Clear Calc 61.64 Est GFR (MDRD) Af Amer 129 Est GFR (MDRD) Non-Af 107 BUN/Creatinine Ratio 21.0 H Glucose 148 H Lactic Acid Calcium 9.2 Phosphorus Magnesium Ferritin Total Bilirubin 0.70 AST 27 ALT 26 Alkaline Phosphatase 78 Lactate Dehydrogenase Troponin I C-React Prot Ext Range Total Protein 7.7 Albumin 3.9 Globulin 3.8 Albumin/Globulin Ratio 1.0 Procalcitonin Urine Color Urine Clarity Urine pH Ur Specific [place] Urine Protein Urine Glucose (UA) Urine Ketones Urine Occult Blood Urine Nitrite Urine Bilirubin Urine Urobilinogen Ur Leukocyte Esterase Urine RBC Urine WBC Ur Squamous Epith Cells Urine Bacteria Hyaline Casts Urine Mucus COVID-19 (GINA) MRSA (PCR) 10/14/19 10/14/19 10/14/19 00:38 00:38 00:38 WBC RBC Hgb Hct MCV MCH MCHC RDW Std Deviation RDW Coeff of [place] Plt Count MPV Immature Gran % (Auto) Neut % (Auto) Lymph % (Auto) [place] % (Auto) Eos % (Auto) Baso % (Auto) Absolute Neuts (auto) Absolute Lymphs (auto) Nucleated RBC % PT INR APTT Sodium Potassium Chloride Carbon Dioxide Anion Gap BUN Creatinine Estim Creat Clear Calc Est GFR (MDRD) Af Amer Est GFR (MDRD) Non-Af BUN/Creatinine Ratio Glucose Lactic Acid 2.3 H* Calcium Phosphorus Magnesium Ferritin 182 Total Bilirubin AST ALT Alkaline Phosphatase Lactate Dehydrogenase 228 Troponin I C-React Prot Ext Range 10.00 H Total Protein Albumin Globulin Albumin/Globulin Ratio Procalcitonin < 0.04 Urine Color Urine Clarity Urine pH Ur Specific [place] Urine Protein Urine Glucose (UA) Urine Ketones Urine Occult Blood Urine Nitrite Urine Bilirubin Urine Urobilinogen Ur Leukocyte Esterase Urine RBC Urine WBC Ur Squamous Epith Cells Urine Bacteria Hyaline Casts Urine Mucus COVID-19 (GINA) MRSA (PCR) 10/14/19 10/14/19 10/14/19 00:38 00:40 01:35 WBC RBC Hgb Hct MCV MCH MCHC RDW Std Deviation RDW Coeff of X[place] Plt Count MPV Immature Gran % (Auto) Neut % (Auto) Lymph % (Auto) [place] % (Auto) Eos % (Auto) Baso % (Auto) Absolute Neuts (auto) Absolute Lymphs (auto) Nucleated RBC % PT INR APTT Sodium Potassium Chloride Carbon Dioxide Anion Gap BUN Creatinine Estim Creat Clear Calc Est GFR (MDRD) Af Amer Est GFR (MDRD) Non-Af BUN/Creatinine Ratio Glucose Lactic Acid Calcium Phosphorus 4.2 Magnesium 2.1 Ferritin Total Bilirubin AST ALT Alkaline Phosphatase Lactate Dehydrogenase Troponin I 0.037 C-React Prot Ext Range Total Protein Albumin Globulin Albumin/Globulin Ratio Procalcitonin Urine Color [place] Urine Clarity Clear Urine pH 5.0 Ur Specific [place] 1.030 Urine Protein 30 H Urine Glucose (UA) Normal Urine Ketones 15 H Urine Occult Blood Negative Urine Nitrite Negative Urine Bilirubin Negative Urine Urobilinogen 1 H Ur Leukocyte Esterase 25 H Urine RBC 0 SEEN Urine WBC 0 SEEN Ur Squamous Epith Cells 0 SEEN Urine Bacteria 0 SEEN Hyaline Casts 0-5 SEEN Urine Mucus 0 SEEN COVID-19 (GINA) MRSA (PCR) 10/14/19 10/14/19 10/14/19 03:28 03:55 04:15 WBC 12.5 H RBC 4.80 Hgb 15.1 Hct 46.4 MCV 96.7 H MCH 31.5 MCHC 32.5 RDW Std Deviation 45.8 H RDW Coeff of X[place] 12.8 Plt Count 145 L MPV 12.2 H Immature Gran % (Auto) 0.600 Neut % (Auto) 87.0 H Lymph % (Auto) 5.8 L [place] % (Auto) 6.1 Eos % (Auto) 0.0 Baso % (Auto) 0.5 Absolute Neuts (auto) 10.9 H Absolute Lymphs (auto) 0.72 L Nucleated RBC % 0 PT INR APTT Sodium Potassium Chloride Carbon Dioxide Anion Gap BUN Creatinine Estim Creat Clear Calc Est GFR (MDRD) Af Amer Est GFR (MDRD) Non-Af BUN/Creatinine Ratio Glucose Lactic Acid 2.3 H* Calcium Phosphorus Magnesium Ferritin Total Bilirubin AST ALT Alkaline Phosphatase Lactate Dehydrogenase Troponin I C-React Prot Ext Range Total Protein Albumin Globulin Albumin/Globulin Ratio Procalcitonin Urine Color Urine Clarity Urine pH Ur Specific [place] Urine Protein Urine Glucose (UA) Urine Ketones Urine Occult Blood Urine Nitrite Urine Bilirubin Urine Urobilinogen Ur Leukocyte Esterase Urine RBC Urine WBC Ur Squamous Epith Cells Urine Bacteria Hyaline Casts Urine Mucus COVID-19 (GINA) Pending MRSA (PCR) 10/14/19 10/14/19 04:15 04:15 WBC RBC Hgb Hct MCV MCH MCHC RDW Std Deviation RDW Coeff of X[place] Plt Count MPV Immature Gran % (Auto) Neut % (Auto) Lymph % (Auto) [place] % (Auto) Eos % (Auto) Baso % (Auto) Absolute Neuts (auto) Absolute Lymphs (auto) Nucleated RBC % PT INR APTT Sodium 138 Potassium 4.0 Chloride 104 Carbon Dioxide 23.0 Anion Gap 11 BUN 19 H Creatinine 0.72 Estim Creat Clear Calc 58.92 Est GFR (MDRD) Af Amer 137 Est GFR (MDRD) Non-Af 114 BUN/Creatinine Ratio 26.2 H Glucose 169 H Lactic Acid Calcium 8.4 L Phosphorus Magnesium Ferritin Total Bilirubin 0.60 AST 35 ALT 23 Alkaline Phosphatase 73 Lactate Dehydrogenase Troponin I C-React Prot Ext Range Total Protein 6.9 Albumin 3.3 Globulin 3.6 Albumin/Globulin Ratio 0.9 Procalcitonin Urine Color Urine Clarity Urine pH Ur Specific [place] Urine Protein Urine Glucose (UA) Urine Ketones Urine Occult Blood Urine Nitrite Urine Bilirubin Urine Urobilinogen Ur Leukocyte Esterase Urine RBC Urine WBC Ur Squamous Epith Cells Urine Bacteria Hyaline Casts Urine Mucus COVID-19 (GINA) MRSA (PCR) Pending Microbiology 10/14/19 00:49 Mucosa - Nose Respiratory Panel (PCR) - Final 10/14/19 00:49 Mucosa - Nose Rapid RSV (DFA) - Final 10/14/19 00:49 Mucosa - Nose Influenza Types A,B Direct FA (MARC) - Final 10/14/19 00:38 Mucosa - Throat Group A Streptococcus Rapid Screen - Preliminary Clinical Impression(s) from Imaging Studies Chest X-Ray 10/14/19 01:05 IMPRESSION: Bilateral lower lobe pneumonia. Electronically Signed: Temi Richards, at 1:29 EDT Tel , Service support , Chest X-Ray 10/14/19 02:02 IMPRESSION: Diffuse ill-defined opacities are seen more prominent in the perihilar regions and lung bases suggesting bilateral pneumonia or pulmonary edema. Electronically Signed: Temi Moyan, at 4:03 EDT Tel , Service support , KUB X-Ray 10/14/19 02:40 IMPRESSION: An NG tube is seen with tip within the gastric lumen is in good position. Electronically Signed: Temi Moyan, at 2:58 EDT Tel , Service support , Current Medications Acetaminophen (Tylenol) 650 mg PO Q6H PRN PRN PRN Reason: Pain Score 1-10/Temp > 100.7 F Al Hydroxide/Mg Hydroxide (Mylanta Ii) 30 ml PO Q6H PRN PRN PRN Reason: Gastric Burning Albuterol Sulfate (Ventolin Aerosols) 2.5 mg INHALATION Q2H PRN PRN PRN Reason: Dyspnea, wheezing Albuterol/Ipratropium (Duoneb) 3 ml INHALATION Q4HWA.RT [facility] Aspirin (Aspirin, Baby) 81 mg PO ONCE [facility] Azithromycin (Zithromax) 500 mg PO Q24 [facility] Bupropion HCl (Wellbutrin Sr (150mg Tablets)) 150 mg PO DAILY [facility] Chlorhexidine Gluconate () 15 ml PO BID [facility] Clopidogrel Bisulfate (Plavix) 75 mg PO DAILY [facility] Dextrose (D50w Syringe) 0 gm IV X1 PRN; Protocol PRN Reason: Hypoglycemia Enoxaparin Sodium (Lovenox) 40 mg SC DAILY [facility] Famotidine (Pepcid) 20 mg PO BID [facility] Folic Acid (Folic Acid) 1 mg PO DAILY@0800 [facility] Stop: 10/16/19 08:01 Gabapentin (Neurontin) 300 mg PO DAILY [facility] Glucagon () 1 mg IM .X1 PRN PRN Reason: Hypoglycemia Guaifenesin (Robitussin) 10 ml PO Q4H PRN PRN PRN Reason: COUGH Fentanyl () 100 mls @ 2.5 mls/hr IV [facility]; Protocol Last Admin: 10/14/19 02:52 Dose: 25 mcg/hr, 2.5 mls/hr Documented by: Propofol (Diprivan) 1,000 mg in 100 mls @ 3.804 mls/hr CONT INF .Q12H [facility]; Protocol Last Titration: 10/14/19 06:30 Dose: 50 mcg/kg/min, 19 mls/hr Documented by: Ceftriaxone Sodium 2 gm/ (Sodium Chloride) 50 mls @ 100 mls/hr IV Q24H [facility] Sodium Chloride () 1,000 mls @ 100 mls/hr IV .Q10H [facility] Last Admin: 10/14/19 04:45 Dose: 100 mls/hr Documented by: Sodium Chloride () 250 mls @ 15 mls/hr IV .[id number] PRN PRN Reason: Saline Flush Sodium Chloride () 250 mls @ 15 mls/hr IV .[id number] PRN PRN Reason: Additional IVPB Infusion Insulin Human Lispro (Humalog Kwikpen (Bkc)) 0 unit SC Q6 [facility]; Protocol Lorazepam (Ativan) 2 mg PO Q2H PRN PRN; Protocol PRN Reason: CIWA score > 8 but <15 Lorazepam (Ativan) 2 mg PO UD PRN; Protocol PRN Reason: CIWA score >/=15. Lorazepam (Ativan) 2 mg IV Q2H PRN PRN; Protocol PRN Reason: CIWA score > 8 but <15 Lorazepam (Ativan) 2 mg IV UD PRN; Protocol PRN Reason: CIWA score >/=15. Magnesium Hydroxide (Milk Of Magnesia) 30 ml PO DAILY PRN PRN PRN Reason: Constipation Methylprednisolone (Solu-Medrol) 40 mg IV Q8 [facility] Metoprolol Tartrate (Lopressor (Beta Agnieszka)) 75 mg PO BID [facility] Morphine Sulfate () 2 mg IV Q3H PRN PRN PRN Reason: Pain Score 6-10/10 Multivitamins/Minerals (Multivitamin With Minerals (Bkc)) 1 tablet PO DAILYCM [facility] Nitroglycerin (Nitrostat) 0.4 mg SUBLINGUAL Q5M PRN PRN Reason: CARDIAC/CHEST PAIN Non-Formulary Medication (Rosuvastatin Calcium) 5 mg PO DAILY [facility] Ondansetron HCl (Zofran) 4 mg IV Q8H PRN PRN PRN Reason: NAUSEA/VOMITING Oxycodone HCl (Oxyir) 5 mg PO Q4H PRN PRN PRN Reason: Pain Score 4-5/10 Pravastatin Sodium (Pravachol) 80 mg PO DAILY [facility] Prochlorperazine Edisylate (Compazine Iv) 5 mg IV Q4H PRN PRN PRN Reason: Breakthrough Nausea/Vomiting Psyllium Hydrophilic Mucilloid (Metamucil) 1 packet PO DAILY PRN PRN PRN Reason: Constipation Ranolazine (Ranexa) 1,000 mg PO DAILY [facility] Senna/Docusate Sodium (Senokot-S, Ami-Colace) 2 tablet PO BID PRN PRN PRN Reason: Constipation Sodium Chloride () 10 - 40 ml IV UD PRN PRN Reason: SALINE FLUSH Thiamine HCl (Vitamin B1) 100 mg PO BIDCM [facility] Stop: 10/16/19 17:01 Throat Lozenges (Cepacol Sore Throat Lozenge) 1 lozenge MUCOUS MEM Q2H PRN PRN PRN Reason: SORE THROAT Assessment/Plan Active and Suspected Problems (Last Reviewed 07/15/18 @ 16:45 by April Hyatt) Severe sepsis (Acute) Acute on chronic respiratory failure with hypoxia (Acute) COPD exacerbation (Acute) Bilateral pneumonia (Acute) Suspected 2019 novel coronavirus infection (Acute) Pneumonia of both lower lobes (Acute) Respiratory failure (Acute) RECOMMENDATIONS: 1. Continue empiric broad-spectrum antimicrobials, pending infectious work-up. 2. Obtain infectious diseases consultation. 3. Continue scheduled bronchodilators and IV steroids. 4. Wean FiO2 and PEEP to maintain oxygen saturations at or above 90%. 5. Continue Lovenox and Pepcid for prophylaxis. 6. Continue propofol and fentanyl for sedation. 7. Start tube feeds today. 8. COVID testing pending. IMPRESSIONS: 1. Acute hypoxemic respiratory failure Likely secondary to COPD with exacerbation precipitated by bilateral lower lobe pneumonia. The patient was also placed in COVID precautions and testing was sent. Will plan to continue current supportive measures with invasive mechanical ventilatory support, with plans to wean FiO2 and PEEP to maintain oxygen saturations at or above 90%. Continue broad-spectrum, empiric antimicrobial therapy, pending infectious work-up. Continue scheduled bronchodilators and IV steroids. Tube feeds can be initiated today from my perspective. Continue propofol and fentanyl for sedation. 2. Severe sepsis Appears to be secondary to underlying pulmonary infectious process. Continue current supportive measures and antimicrobials as noted above. 3. Coronary artery disease status post CABG Continue outpatient cardiac medication regimen. 4. Chronic alcohol dependency/chronic pain syndrome/anxiety/depression/hypertension/hyperlipidemia Complicates care, management, recovery and prognosis. Continue home medications as indicated. Physical therapy to evaluate patient, once medically stabilized. Tube feeds will be started today. TIME: 40 minutes of critical care time, independent of procedures, was spent addressing the patient's acute hypoxemic respiratory failure, severe sepsis, coronary artery disease, review of all data and collaboration with the care team. [id number]) [phone] [id number] Critical care first hour
[2019-10-14 06:45] LABS: M R Staph aureus DNA By PCR Negative (Negative); Probe Check PASS; Specimen Processing Control PASS
[2019-10-14 06:50] LABS: Base Excess -6 mmol/L (-2 to +2); Bicarbonate 21.4 mmol/L (22-26); PO2 63 mmHG (75-100); SO2 88 % (95-99); Total Carbon Dioxide 23 mmol/L; pCO2 47.8 mmHg (35-45); pH 7.26 (7.35-7.45)
[2019-10-14 06:56] LABS: Allen Test POS; Blood Gas Specimen Type ART; Mode A-C; O2 Delivery Device Vent; SITE L RADIAL
[2019-10-14 06:56] LABS: Base Excess -4 mmol/L (-2 to +2); Bicarbonate 22.1 mmol/L (22-26); PO2 56 mmHG (75-100); SO2 86 % (95-99); Total Carbon Dioxide 23 mmol/L; pCO2 42.3 mmHg (35-45); pH 7.33 (7.35-7.45)
[2019-10-14 06:57] LABS: FI02 80; PEEP 5; RR 14; Vt 400
[2019-10-14 06:58] LABS: Allen Test POS; Blood Gas Specimen Type ART; SITE L RADIAL
[2019-10-14 06:59] LABS: O2 Delivery Device NRB Mask
[2019-10-14] MEDS: Ipratropium/Albuterol Sulfate 3 ML AMPUL.NEB INHALATION ×4 (07:08→18:57)
[2019-10-14] MEDS: Folic Acid 1 MG Tablet PO (07:58)
[2019-10-14] MEDS: Multivitamins,Ther W-Minerals Tablet 1 TABLET PO (07:58)
[2019-10-14] MEDS: Thiamine Hydrochloride 100 MG Tablet PO ×2 (07:58→19:43)
[2019-10-14] MEDS: CLARIFY ORDER 1 EACH NOTE (09:03)
[2019-10-14] MEDS: Metoprolol Tartrate 50 MG Tablet 75 MG PO ×2 (10:06→21:32)
[2019-10-14] MEDS: buPROPion (SR) 150 MG Tablet.SA PO (10:07)
[2019-10-14] MEDS: Ranolazine 500 MG Tablet 1000 MG PO (10:07)
[2019-10-14] MEDS: Clopidogrel Bisulfate 75 MG Tablet PO (10:07)
[2019-10-14] MEDS: Gabapentin 300 MG Capsule PO (10:07)
[2019-10-14] MEDS: Enoxaparin 40 MG/0.4 ML Syringe SC (10:07)
[2019-10-14] MEDS: Famotidine 20 MG Tablet PO ×2 (10:07→21:34)
[2019-10-14] MEDS: fentaNYL drip 100 ML 20 MCG IV ×3 (11:13→21:34)
[2019-10-14] MEDS: Propofol 10MG/Ml 1,000 MG/100 ML Bottle 13.3 MG CONT INF ×2 (12:03→19:43)
--- NOTE | 2019-10-14 12:41 | NT.THERAPY_ITS ---
Nutrition Therapy Report - History Nutrition Services has been consulted to:: Manage enteral nutrition Current diet / nutrition support order:: NPO x day #1; intubated - Anthropometric Measurements Height:: 5 ft 6 in Weight:: 60.6 kg Body Mass Index (BMI):: 21.5 - Relevant Labs Relevant Labs:: WBC 12.5 K/mm3 (4.4-11.0) H 10/14/19 04:15 MCV 96.7 fL (80-94) H 10/14/19 04:15 RDW Std Deviation 45.8 fl (35.1-43.9) H 10/14/19 04:15 Plt Count 145 K/mm3 (150-450) L 10/14/19 04:15 MPV 12.2 fl (6.2-12.0) H 10/14/19 04:15 Neut % (Auto) 87.0 % (47-70) H 10/14/19 04:15 Lymph % (Auto) 5.8 % (19-41) L 10/14/19 04:15 Absolute Neuts (auto) 10.9 X10^3/uL (2.0-7.7) H 10/14/19 04:15 Absolute Lymphs (auto) 0.72 X10^3/uL (0.83-4.51) L 10/14/19 04:15 BUN 19 mg/dL (7-18) H 10/14/19 04:15 BUN/Creatinine Ratio 26.2 RATIO (10-20) H 10/14/19 04:15 Glucose 169 mg/dL (74-106) H 10/14/19 04:15 Lactic Acid 2.3 mmol/L (0.4-1.9) H* 10/14/19 03:28 Calcium 8.4 mg/dL (8.5-10.1) L 10/14/19 04:15 C-React Prot Ext Range 10.00 mg/L (0.0-3.0) H 10/14/19 00:38 - Assessment Food / Nutrition-Related History:: Unable to interview pt at this time but, suspect decreased PO/[employer] & wt loss due to ETOH. - Nutrition Diagnosis Problem / Etiology / Signs & Symptoms (PES):: Predicted suboptimal oral intake; increased needs for arleth/pro related to hx of ETOH; inflammation/sepsis as evidenced by NPO/intubation; need for TF support. - Nutrition Intervention Nutrition Prescription:: Start TF support per Dr. Lynne--will order Vital AF 1.2 arleth @ 20 ml/hr & rec increase as tolerated by 10 ml/hr Q 6-8 hours to goal rate 50 ml/hr with 120 ml water flush 4 times per 24 hours. TF at goal with water flushes will provide 1440 kcal, 90 gm protein and 1453 ml free water. - Food / Nutrient Delivery Interventions Summary of nutrition intervention:: Will start TF support and monitor TF toleran ce as established. Nutrition support ordered as / adjusted to:: Vital AF 1.2 arleth @ 20 ml/hr & rec increase as tolerated by 10 ml/hr Q 6-8 hours to goal rate 50 ml/hr with 120 ml water flush 4 times per 24 hours. TF at goal with water flushes will provide 1440 kcal, 90 gm protein and 1453 ml free water. Nutrition education provided?: No - MNT Monitoring Further MNT monitoring and evaluation required?: Yes MNT Follow-up in:: 1-2 days - ICU round today; noted severe pro/arleth malnutrition per progress notes but, unable to verify wt hx at this time.
[2019-10-14] MEDS: Chlorhexidine 15 ML PO ×2 (14:26→21:31)
[2019-10-14] MEDS: Vital AF 1.2 Cal Liquid 1,000 ML 20 ML GT (14:27)
--- NOTE | 2019-10-14 14:27 | CT_ITS ---
STUDY: CTA CHEST REASON FOR EXAM: Male, 68 years old. PE, HYPOXIA, COPD, BILAT PNEUMONIA RADIATION DOSAGE (If Supplied By Facility): CTDIvol = ( 13.47 ) mGy, DLP = ( 619.25 ) mGycm TECHNIQUE: The examination was performed with the intravenous administration of IV 100ML ISOVUE 370. Post-processing of the angiographic images was performed, with multiplanar reformation and 3D reconstruction. Individualized dose optimization techniques were used for this CT. COMPARISON: CT of the abdomen and pelvis dated August 22, 2011 FINDINGS: There are moderate-sized bilateral pleural effusions present. There is associated dependent consolidation within the lower lobes, more pronounced on the left. There are emphysematous changes. Normal enhancement of the main pulmonary artery and right and left pulmonary arteries. Normal enhancement of the bilateral peripheral pulmonary arteries. There is no demonstrated pulmonary embolism. There is atherosclerotic calcification of the aortic arch with tortuosity. There is no demonstrated aortic dissection. There are calcifications of the coronary arteries. There are surgical clips within the region of the pericardium. Normal visualized trachea and bronchi. Normal chest wall structures. There are degenerative changes of thoracic spine. There is a dextroscoliosis of the thoracic spine. The limited images of the upper abdomen demonstrate peripheral calcifications of the abdominal aorta. There is an enteric tube in place terminating within the gastric fundus. CT/CTA Chest W/WO Contrast IMPRESSION: No demonstrated pulmonary embolism or arterial dissection. Bilateral pleural effusions associated with dependent consolidation within the lower lobes. Atherosclerosis. Electronically Signed: Kaila Nicole MD at 15:58 EDT Tel , Service support ,
--- NOTE | 2019-10-14 14:32 | PCM.HP.ID ---
Problem List (1) Acute on chronic respiratory failure with hypoxia Status: Acute Reason for Consult: resp failure Consulted by: Dr. Lynne History of Present Illness: The patient is a 68 year old M with COPD, presented to ED last night with fever, chest pain, c/o several days of cough/dyspnea, not feeling well. Pt intubated, admitted to icu. Given azithro/ceftriaxone, broadened to cefepime this AM. In covid precautions. ROS unobtainable due to intubation - Medical History Past Medical History (Chronic Problems): Chronic Problems CAD (coronary artery disease) (Chronic) PAD (peripheral artery disease) (Chronic) HTN (hypertension) (Chronic) HLD (hyperlipidemia) (Chronic) Diabetes mellitus, type II (Chronic) Heavy alcohol consumption (Chronic) Former tobacco use (Chronic) Allergies/Adverse Reactions: Allergies VALENTINA Inhibitors Allergy (Verified 10/14/19 00:33) Unknown Penicillins Allergy (Verified 10/14/19 00:33) Unknown Home Medications: Ambulatory Orders Medication Instructions Recorded albuterol sulfate 90 mcg/actuation 1 dose INHALATION PRN PRN 17 Days 07/20/17 aerosol inhaler #9 bupropion HCl 150 mg tablet,12 hr 1 tab PO DAILY 30 Days #60 07/20/17 sustained-release clopidogrel 75 mg tablet 1 tab PO DAILY 30 Days #30 07/20/17 gabapentin 300 mg capsule 1 tab PO DAILY 30 Days #60 07/20/17 metoprolol tartrate 50 mg tablet 1.5 tab PO BID 30 Days #90 07/20/17 oxycodone 10 mg tablet,crush 0.5 tab PO TID 30 Days #60 07/20/17 resistant,extended release 12 hr ranolazine 1,000 mg 1 tab PO DAILY 30 Days #60 07/20/17 tablet,extended release,12 hr Cholecalciferol (Vitamin D3) 2,000 unit PO DAILY 10/14/19 [Vitamin D3] Cyclobenzaprine HCl 10 mg PO QHS PRN 10/14/19 Fexofenadine HCl 180 mg PO DAILY 10/14/19 Iron Carbonyl [Feosol] 45 mg PO DAILYCM 10/14/19 Minocycline HCl 1 tab PO DAILY 10/14/19 Rosuvastatin Calcium 5 mg PO DAILY 10/14/19 - Social History SMOKING STATUS:: Former smoker Vital Signs Temp Pulse Resp BP Pulse Ox 99.0 F 67 16 104/54 L 97 10/14/19 10:00 10/14/19 14:00 10/14/19 14:00 10/14/19 14:00 10/14/19 14:00 Oxygen Flow Rate (L/min) 50 Oxygen Delivery Method Mechanical Ventilator Weight: 60.6 kg Body Mass Index (BMI) 21.5 Microbiology Past 72 Hours 10/14/19 Unknown Gram Stain - Final Sputum, Induced/[place] 10/14/19 00:49 Respiratory Panel (PCR) - Final Mucosa - Nose 10/14/19 00:49 Rapid RSV (DFA) - Final Mucosa - Nose 10/14/19 00:49 Influenza Types A,B Direct FA (MARC) - Final Mucosa - Nose 10/14/19 00:38 Group A Streptococcus Rapid Screen - Preliminary Mucosa - Throat Laboratory Tests Past 24 Hrs 10/14/19 10/14/19 10/14/19 00:38 00:38 00:38 WBC 10.9 RBC 5.17 Hgb 16.4 Hct 49.7 MCV 96.1 H MCH 31.7 MCHC 33.0 RDW Std Deviation 45.5 H RDW Coeff of Xenia 12.8 Plt Count 166 MPV 11.5 Immature Gran % (Auto) 0.200 Neut % (Auto) 69.7 Lymph % (Auto) 20.7 [place] % (Auto) 7.7 Eos % (Auto) 0.9 Baso % (Auto) 0.8 Absolute Neuts (auto) 7.6 Absolute Lymphs (auto) 2.25 Nucleated RBC % 0 PT 12.5 INR 1.0 APTT 28.5 Specimen Type Sample Site pH Bicarbonate Actual POC Total CO2 Base Excess O2 Saturation O2 % ABG pCO2 ABG pO2 Sha Test Respiration Rate O2 Delivery Device Liter Flow Vent Mode Tidal Volume POC PEEP Blood Gas Notified Whom Sodium 140 Potassium 4.0 Chloride 107 Carbon Dioxide 25.0 Anion Gap 8 BUN 16 Creatinine 0.76 Estim Creat Clear Calc 61.64 Est GFR (MDRD) Af Amer 129 Est GFR (MDRD) Non-Af 107 BUN/Creatinine Ratio 21.0 H Glucose 148 H Lactic Acid Calcium 9.2 Phosphorus Magnesium Ferritin Total Bilirubin 0.70 AST 27 ALT 26 Alkaline Phosphatase 78 Lactate Dehydrogenase Troponin I C-React Prot Ext Range Total Protein 7.7 Albumin 3.9 Globulin 3.8 Albumin/Globulin Ratio 1.0 Procalcitonin Urine Color Urine Clarity Urine pH Ur Specific [place] Urine Protein Urine Glucose (UA) Urine Ketones Urine Occult Blood Urine Nitrite Urine Bilirubin Urine Urobilinogen Ur Leukocyte Esterase Urine RBC Urine WBC Ur Squamous Epith Cells Urine Bacteria Hyaline Casts Urine Mucus COVID-19 (GINA) MRSA (PCR) 10/14/19 10/14/19 10/14/19 00:38 00:38 00:38 WBC RBC Hgb Hct MCV MCH MCHC RDW Std Deviation RDW Coeff of [place] Plt Count MPV Immature Gran % (Auto) Neut % (Auto) Lymph % (Auto) [place] % (Auto) Eos % (Auto) Baso % (Auto) Absolute Neuts (auto) Absolute Lymphs (auto) Nucleated RBC % PT INR APTT Specimen Type Sample Site pH Bicarbonate Actual POC Total CO2 Base Excess O2 Saturation O2 % ABG pCO2 ABG pO2 Sha Test Respiration Rate O2 Delivery Device Liter Flow Vent Mode Tidal Volume POC PEEP Blood Gas Notified Whom Sodium Potassium Chloride Carbon Dioxide Anion Gap BUN Creatinine Estim Creat Clear Calc Est GFR (MDRD) Af Amer Est GFR (MDRD) Non-Af BUN/Creatinine Ratio Glucose Lactic Acid 2.3 H* Calcium Phosphorus Magnesium Ferritin 182 Total Bilirubin AST ALT Alkaline Phosphatase Lactate Dehydrogenase 228 Troponin I C-React Prot Ext Range 10.00 H Total Protein Albumin Globulin Albumin/Globulin Ratio Procalcitonin < 0.04 Urine Color Urine Clarity Urine pH Ur Specific [place] Urine Protein Urine Glucose (UA) Urine Ketones Urine Occult Blood Urine Nitrite Urine Bilirubin Urine Urobilinogen Ur Leukocyte Esterase Urine RBC Urine WBC Ur Squamous Epith Cells Urine Bacteria Hyaline Casts Urine Mucus COVID-19 (GINA) MRSA (PCR) 10/14/19 10/14/19 10/14/19 00:38 00:40 01:26 WBC RBC Hgb Hct MCV MCH MCHC RDW Std Deviation RDW Coeff of [place] Plt Count MPV Immature Gran % (Auto) Neut % (Auto) Lymph % (Auto) [place] % (Auto) Eos % (Auto) Baso % (Auto) Absolute Neuts (auto) Absolute Lymphs (auto) Nucleated RBC % PT INR APTT Specimen Type ART Sample Site L RADIAL pH 7.33 L Bicarbonate Actual 22.1 POC Total CO2 23 Base Excess -4 L O2 Saturation 86 L O2 % ABG pCO2 42.3 ABG pO2 56 L Sha Test POS Respiration Rate O2 Delivery Device NRB Mask Liter Flow 15.0 Vent Mode Tidal Volume POC PEEP Blood Gas Notified Whom ED Sodium Potassium Chloride Carbon Dioxide Anion Gap BUN Creatinine Estim Creat Clear Calc Est GFR (MDRD) Af Amer Est GFR (MDRD) Non-Af BUN/Creatinine Ratio Glucose Lactic Acid Calcium Phosphorus 4.2 Magnesium 2.1 Ferritin Total Bilirubin AST ALT Alkaline Phosphatase Lactate Dehydrogenase Troponin I 0.037 C-React Prot Ext Range Total Protein Albumin Globulin Albumin/Globulin Ratio Procalcitonin Urine Color Urine Clarity Urine pH Ur Specific [place] Urine Protein Urine Glucose (UA) Urine Ketones Urine Occult Blood Urine Nitrite Urine Bilirubin Urine Urobilinogen Ur Leukocyte Esterase Urine RBC Urine WBC Ur Squamous Epith Cells Urine Bacteria Hyaline Casts Urine Mucus COVID-19 (GINA) MRSA (PCR) 10/14/19 10/14/19 10/14/19 01:35 03:28 03:51 WBC RBC Hgb Hct MCV MCH MCHC RDW Std Deviation RDW Coeff of [place] Plt Count MPV Immature Gran % (Auto) Neut % (Auto) Lymph % (Auto) [place] % (Auto) Eos % (Auto) Baso % (Auto) Absolute Neuts (auto) Absolute Lymphs (auto) Nucleated RBC % PT INR APTT Specimen Type ART Sample Site L RADIAL pH 7.26 L Bicarbonate Actual 21.4 L POC Total CO2 23 Base Excess -6 L O2 Saturation 88 L O2 % 80 ABG pCO2 47.8 H ABG pO2 63 L Sha Test POS Respiration Rate 14 O2 Delivery Device Vent Liter Flow Vent Mode A-C Tidal Volume 400 POC PEEP 5 Blood Gas Notified Whom ED Sodium Potassium Chloride Carbon Dioxide Anion Gap BUN Creatinine Estim Creat Clear Calc Est GFR (MDRD) Af Amer Est GFR (MDRD) Non-Af BUN/Creatinine Ratio Glucose Lactic Acid 2.3 H* Calcium Phosphorus Magnesium Ferritin Total Bilirubin AST ALT Alkaline Phosphatase Lactate Dehydrogenase Troponin I C-React Prot Ext Range Total Protein Albumin Globulin Albumin/Globulin Ratio Procalcitonin Urine Color [place] Urine Clarity Clear Urine pH 5.0 Ur Specific [place] 1.030 Urine Protein 30 H Urine Glucose (UA) Normal Urine Ketones 15 H Urine Occult Blood Negative Urine Nitrite Negative Urine Bilirubin Negative Urine Urobilinogen 1 H Ur Leukocyte Esterase 25 H Urine RBC 0 SEEN Urine WBC 0 SEEN Ur Squamous Epith Cells 0 SEEN Urine Bacteria 0 SEEN Hyaline Casts 0-5 SEEN Urine Mucus 0 SEEN COVID-19 (GINA) MRSA (PCR) 10/14/19 10/14/19 10/14/19 03:55 04:15 04:15 WBC 12.5 H RBC 4.80 Hgb 15.1 Hct 46.4 MCV 96.7 H MCH 31.5 MCHC 32.5 RDW Std Deviation 45.8 H RDW Coeff of Xenia 12.8 Plt Count 145 L MPV 12.2 H Immature Gran % (Auto) 0.600 Neut % (Auto) 87.0 H Lymph % (Auto) 5.8 L [place] % (Auto) 6.1 Eos % (Auto) 0.0 Baso % (Auto) 0.5 Absolute Neuts (auto) 10.9 H Absolute Lymphs (auto) 0.72 L Nucleated RBC % 0 PT INR APTT Specimen Type Sample Site pH Bicarbonate Actual POC Total CO2 Base Excess O2 Saturation O2 % ABG pCO2 ABG pO2 Sha Test Respiration Rate O2 Delivery Device Liter Flow Vent Mode Tidal Volume POC PEEP Blood Gas Notified Whom Sodium 138 Potassium 4.0 Chloride 104 Carbon Dioxide 23.0 Anion Gap 11 BUN 19 H Creatinine 0.72 Estim Creat Clear Calc 58.92 Est GFR (MDRD) Af Amer 137 Est GFR (MDRD) Non-Af 114 BUN/Creatinine Ratio 26.2 H Glucose 169 H Lactic Acid Calcium 8.4 L Phosphorus Magnesium Ferritin Total Bilirubin 0.60 AST 35 ALT 23 Alkaline Phosphatase 73 Lactate Dehydrogenase Troponin I C-React Prot Ext Range Total Protein 6.9 Albumin 3.3 Globulin 3.6 Albumin/Globulin Ratio 0.9 Procalcitonin Urine Color Urine Clarity Urine pH Ur Specific [place] Urine Protein Urine Glucose (UA) Urine Ketones Urine Occult Blood Urine Nitrite Urine Bilirubin Urine Urobilinogen Ur Leukocyte Esterase Urine RBC Urine WBC Ur Squamous Epith Cells Urine Bacteria Hyaline Casts Urine Mucus COVID-19 (GINA) Pending MRSA (PCR) 10/14/19 04:15 WBC RBC Hgb Hct MCV MCH MCHC RDW Std Deviation RDW Coeff of [place] Plt Count MPV Immature Gran % (Auto) Neut % (Auto) Lymph % (Auto) [place] % (Auto) Eos % (Auto) Baso % (Auto) Absolute Neuts (auto) Absolute Lymphs (auto) Nucleated RBC % PT INR APTT Specimen Type Sample Site pH Bicarbonate Actual POC Total CO2 Base Excess O2 Saturation O2 % ABG pCO2 ABG pO2 Sha Test Respiration Rate O2 Delivery Device Liter Flow Vent Mode Tidal Volume POC PEEP Blood Gas Notified Whom Sodium Potassium Chloride Carbon Dioxide Anion Gap BUN Creatinine Estim Creat Clear Calc Est GFR (MDRD) Af Amer Est GFR (MDRD) Non-Af BUN/Creatinine Ratio Glucose Lactic Acid Calcium Phosphorus Magnesium Ferritin Total Bilirubin AST ALT Alkaline Phosphatase Lactate Dehydrogenase Troponin I C-React Prot Ext Range Total Protein Albumin Globulin Albumin/Globulin Ratio Procalcitonin Urine Color Urine Clarity Urine pH Ur Specific [place] Urine Protein Urine Glucose (UA) Urine Ketones Urine Occult Blood Urine Nitrite Urine Bilirubin Urine Urobilinogen Ur Leukocyte Esterase Urine RBC Urine WBC Ur Squamous Epith Cells Urine Bacteria Hyaline Casts Urine Mucus COVID-19 (GINA) MRSA (PCR) Negative - Other Studies Radiology: [] reviewed Other Studies: [] Route of nutrition/ use of supplements: [] Nutritional Intake: [] IV Site: [] Moreira Catheter: [] - Physical Exam General: Non-Cooperative HEENT: Atraumatic, PERRLA Neck: Supple, No Nodes Lungs: Diminished Cardiovascular: Tachycardic Abdomen: Soft, Non Tender, Non-Distended Extremities: No edema Skin: No rashes IV Site: Peripheral, without redness Musculoskeletal: No Tenderness to Palpation of Joints or Extremities - Assessment/Plan Antibiotics: [] Assessment/Plan: [] Active and Suspected Problems (Last Reviewed 07/15/18 @ 16:45 by April Hyatt) Severe sepsis (Acute) Acute on chronic respiratory failure with hypoxia (Acute) COPD exacerbation (Acute) Bilateral pneumonia (Acute) Suspected 2018 novel coronavirus infection (Acute) Pneumonia of both lower lobes (Acute) Respiratory failure (Acute) Subjective fever at home, reported chest pain, hypoxia, cough. COVID pending. Sputum with no GNR on gram stain. Will narrow abx to ceftriaxone. Check CT-PE. PCT was neg. Will follow, thank you. D/w Dr. Lynne.
--- NOTE | 2019-10-14 15:05 | CASEMGMT ---
RN CM Assessment Note Presentation: Suspected COVID-19. Pt was intubated and on ventilator. Intro role of CM and purpose of RN CM assessment to via phone. Demographics, PCP and Pharmacy verified. Allergies verified per 's request. states pt is generally independent, does not require assistance at home, but does wear oxygen intermittently. RN CM spoke for a lengthy time with who is anxious that she cannot visit. Emotional support given that her is still in ICU, on ventilator, but stable. was able to assist with RN CM assessment. Did let RN CM know that pt is vegetarian (eats eggs and dairy). Attempted to call [facility], no answer. Message left with [facility] requesting she notify pharmacy stock clerk and have them enter in chart. PCP: Dr. Thaddeus Feng Specialists: Dr. Myah Garcia (cardiology) [phone]; Dr. Blair (pain mgmt) [phone] Preferred Pharmacy: [facility] Insurance: MMO Prescription Benefit: yes LNOK : , Janee Bhandari. Per , they are legally and she is DPOA. Living Arrangements: Lives with . Generally does not use DME, however has equipment at home if needed. states he completes own ADL's and IADL's. Transportation: drives DME: walker, cane, wheelchair-does not normally use. Oxygen: through [employer]. Concentrator only for intermittent use. No portability per . If continuous O2 needed on discharge, would need testing and new script. HHC: none Patient DC goals: home DC PLAN: undetermined. RN CM let know to contact ICU nurse if she has further questions and RN CM will be available to assist with dc planning. Ty SHARP RN ACM
[2019-10-14 15:21] LABS: Bedside Glucose 135 mg/dL (70-110)
--- NOTE | 2019-10-14 17:00 | NURSING ---
ed re chronic illness deferred till acute illness resovling
[2019-10-14 20:11] LABS: Bedside Glucose 128 mg/dL (70-110)
[2019-10-14] MEDS: Atorvastatin Calcium 10 MG Tablet GT (21:33)
[2019-10-15] VITALS (34 sets, daily range): BP systolic 106–173; BP diastolic 56–98; PULSE 68–114; RESP 8–22; TEMP 36.5–37.4; O2SAT 89–98
[2019-10-15] MEDS: Insulin Lispro 100 UNIT/ML INSULN.PEN SC ×4 (01:05→17:10)
[2019-10-15] MEDS: 0.9% Normal Saline 1,000 ML 100 ML IV (01:05)
[2019-10-15 01:21] LABS: Bedside Glucose 154 mg/dL (70-110)
[2019-10-15] MEDS: fentaNYL drip 100 ML 20 MCG IV (03:00)
[2019-10-15 04:44] LABS: Absolute Lymphocyte Count 0.52 X10^3/uL (0.83-4.51); Absolute Neutrophil Count 11.4 X10^3/uL (2.0-7.7); Basophil# 0.01 X10^3/uL; Basophil% 0.1 % (0-1); Hematocrit 38.8 % (40-54); Hemoglobin 12.7 g/dL (13.0-16.5); Lymphocyte # 0.52 X10^3/ul (4.0); Lymphocyte % 4.2 % (19-41); Mean Corp Hgb Conc 32.7 g/dL (32-36); Mean Corpuscular Hgb 31.6 pg (27.0-32.0); Mean Corpuscular Volume 96.5 fL (80-94); Mean Platelet Vol. 12.2 fl (6.2-12.0); Monocyte# 0.41 X10^3/uL; Monocyte% 3.3 % (0-10); NRBC Flagged by Analyzer 0 % (0-5); Neutrophil # 11.35 X10^3/uL (2.7-7.7); Neutrophil % 91.8 % (47-70); POSITIVE DIFFERENTIAL YES; Platelet Count 112 K/mm3 (150-450); RBC Distribution Width CV 12.7 % (11.6-14.6); RBC Distribution Width SD 45.3 fl (35.1-43.9); Red Blood Count 4.02 M/mm3 (4.6-6.2); White Blood Count 12.4 K/mm3 (4.4-11.0)
[2019-10-15 04:45] LABS: Differential Indicated SCAN CRITERIA MET
[2019-10-15 04:58] LABS: Differential Comment SCANNED
[2019-10-15 05:00] LABS: ALB/GLOB Ratio 0.8 RATIO (0.9-2.4); AST(SGOT) 63 U/L (15-37); Alanine Aminotransfer ALT/SGPT 19 U/L (16-61); Albumin, Serum 2.5 g/dL (3.2-5.0); Alkaline Phosphatase 54 U/L (45-117); Anion Gap 5 (5-15); BUN 18 mg/dL (7-18); BUN/Creat Ratio 27.1 RATIO (10-20); Calcium,Total 7.8 mg/dL (8.5-10.1); Chloride 107 mmol/L (98-107); Creatinine, Serum 0.66 mg/dL (0.70-1.30); EST Glomerular Filtration Rate 126 mL/min (>60); Est Glom Filt Rate - Afr Amer 152 mL/min (>60); Estimated Creatinine Clearance 58.92 ml/min; Globulin 3.1 g/dL (2.2-4.2); Glucose 176 mg/dL (74-106); Potassium 4.6 mmol/L (3.5-5.1); Protein, Total 5.6 g/dL (6.4-8.2); Sodium Level 138 mmol/L (136-145)
[2019-10-15 05:26] LABS: Bedside Glucose 177 mg/dL (70-110)
--- NOTE | 2019-10-15 06:16 | PCM.PN.INT ---
Subjective: The patient was seen and examined at the bedside this morning. Events from the last 24 hours have been reviewed. The patient is currently afebrile, hemodynamically stable and maintaining appropriate oxygen saturations on a spontaneous mode of mechanical ventilation with an FiO2 requirement of 30%. CT chest completed yesterday showed no evidence of PE. There was evidence of bibasilar consolidation with associated effusions. The patient has done well on his breathing trial this morning. While he has been anxious, he is alert and following commands appropriately. Therefore, the decision was made to proceed with a trial of extubation. Objective: The patient's most recent lab work, culture data and imaging studies have all been personally reviewed. Respiratory viral panel was negative. Strep and urine Legionella antigens were negative. Blood, urine and sputum cultures are pending. COVID testing is pending. General: - - Intubated and mechanically ventilated. Tolerating spontaneous mode of mechanical ventilation without issue. HEENT: Atraumatic, Normocephalic Oral: Moist Mucosa, - - Endotracheal and OG tubes remain in place Neck: Supple, No Nodes, Trachea Midline Lungs: No rhonchi, No wheeze, No rales, Diminished Cardiovascular: Regular rate, Regular Rhythm, Normal S1, Normal S2, No murmurs Abdomen: Bowel Sounds Present, Soft, Non Tender Extremities: No clubbing, No cyanosis, No edema, Capillary Refill Less than 3 Seconds Skin: No breakdown Musculoskeletal: No Muscle Wasting Lymphatic: No Cervical, Supraclavicular, or Inguinal Adenopathy Neurological: - - No focal neurological deficits. Moves all extremities spontaneously. Alert and following commands appropriately. Vital Signs Temp Pulse Resp BP Pulse Ox 98.7 F 95 17 158/79 H 98 10/15/19 04:00 10/15/19 05:20 10/15/19 05:20 10/15/19 05:00 10/15/19 05:20 Oxygen Flow Rate (L/min) 50 Oxygen Delivery Method Mechanical Ventilator Weight: 138 lb 10.732 oz Body Mass Index (BMI) 21.5 Intake and Output for Last 24 Hours 10/13/19 10/14/19 10/15/19 23:59 23:59 23:59 Intake Total 2586.79 / 2880.17 1418.13 / 1418.13 Output Total 1175 / 1375 650 / 650 Balance 1411.79 / 1505.17 768.13 / 768.13 Labs (Last 48 Hours) 10/14/19 10/14/19 10/14/19 00:38 00:38 00:38 WBC 10.9 RBC 5.17 Hgb 16.4 Hct 49.7 MCV 96.1 H MCH 31.7 MCHC 33.0 RDW Std Deviation 45.5 H RDW Coeff of Xenia 12.8 Plt Count 166 MPV 11.5 Immature Gran % (Auto) 0.200 Neut % (Auto) 69.7 Lymph % (Auto) 20.7 [place] % (Auto) 7.7 Eos % (Auto) 0.9 Baso % (Auto) 0.8 Absolute Neuts (auto) 7.6 Absolute Lymphs (auto) 2.25 Nucleated RBC % 0 Differential Comment PT 12.5 INR 1.0 APTT 28.5 Specimen Type Sample Site pH Bicarbonate Actual POC Total CO2 Base Excess O2 Saturation O2 % ABG pCO2 ABG pO2 Sha Test Respiration Rate O2 Delivery Device Liter Flow Vent Mode Tidal Volume POC PEEP Blood Gas Notified Whom Sodium 140 Potassium 4.0 Chloride 107 Carbon Dioxide 25.0 Anion Gap 8 BUN 16 Creatinine 0.76 Estim Creat Clear Calc 61.64 Est GFR (MDRD) Af Amer 129 Est GFR (MDRD) Non-Af 107 BUN/Creatinine Ratio 21.0 H Glucose 148 H Lactic Acid Calcium 9.2 Phosphorus Magnesium Ferritin Total Bilirubin 0.70 AST 27 ALT 26 Alkaline Phosphatase 78 Lactate Dehydrogenase Troponin I C-React Prot Ext Range Total Protein 7.7 Albumin 3.9 Globulin 3.8 Albumin/Globulin Ratio 1.0 Procalcitonin Urine Color Urine Clarity Urine pH Ur Specific [place] Urine Protein Urine Glucose (UA) Urine Ketones Urine Occult Blood Urine Nitrite Urine Bilirubin Urine Urobilinogen Ur Leukocyte Esterase Urine RBC Urine WBC Ur Squamous Epith Cells Urine Bacteria Hyaline Casts Urine Mucus COVID-19 (GINA) MRSA (PCR) POC Glucose 10/14/19 10/14/19 10/14/19 00:38 00:38 00:38 WBC RBC Hgb Hct MCV MCH MCHC RDW Std Deviation RDW Coeff of Xenia Plt Count MPV Immature Gran % (Auto) Neut % (Auto) Lymph % (Auto) [place] % (Auto) Eos % (Auto) Baso % (Auto) Absolute Neuts (auto) Absolute Lymphs (auto) Nucleated RBC % Differential Comment PT INR APTT Specimen Type Sample Site pH Bicarbonate Actual POC Total CO2 Base Excess O2 Saturation O2 % ABG pCO2 ABG pO2 Sha Test Respiration Rate O2 Delivery Device Liter Flow Vent Mode Tidal Volume POC PEEP Blood Gas Notified Whom Sodium Potassium Chloride Carbon Dioxide Anion Gap BUN Creatinine Estim Creat Clear Calc Est GFR (MDRD) Af Amer Est GFR (MDRD) Non-Af BUN/Creatinine Ratio Glucose Lactic Acid 2.3 H* Calcium Phosphorus Magnesium Ferritin 182 Total Bilirubin AST ALT Alkaline Phosphatase Lactate Dehydrogenase 228 Troponin I C-React Prot Ext Range 10.00 H Total Protein Albumin Globulin Albumin/Globulin Ratio Procalcitonin < 0.04 Urine Color Urine Clarity Urine pH Ur Specific [place] Urine Protein Urine Glucose (UA) Urine Ketones Urine Occult Blood Urine Nitrite Urine Bilirubin Urine Urobilinogen Ur Leukocyte Esterase Urine RBC Urine WBC Ur Squamous Epith Cells Urine Bacteria Hyaline Casts Urine Mucus COVID-19 (GINA) MRSA (PCR) POC Glucose 10/14/19 10/14/19 10/14/19 00:38 00:40 01:26 WBC RBC Hgb Hct MCV MCH MCHC RDW Std Deviation RDW Coeff of Xenia Plt Count MPV Immature Gran % (Auto) Neut % (Auto) Lymph % (Auto) [place] % (Auto) Eos % (Auto) Baso % (Auto) Absolute Neuts (auto) Absolute Lymphs (auto) Nucleated RBC % Differential Comment PT INR APTT Specimen Type ART Sample Site L RADIAL pH 7.33 L Bicarbonate Actual 22.1 POC Total CO2 23 Base Excess -4 L O2 Saturation 86 L O2 % ABG pCO2 42.3 ABG pO2 56 L Sha Test POS Respiration Rate O2 Delivery Device NRB Mask Liter Flow 15.0 Vent Mode Tidal Volume POC PEEP Blood Gas Notified Whom ED MD Sodium Potassium Chloride Carbon Dioxide Anion Gap BUN Creatinine Estim Creat Clear Calc Est GFR (MDRD) Af Amer Est GFR (MDRD) Non-Af BUN/Creatinine Ratio Glucose Lactic Acid Calcium Phosphorus 4.2 Magnesium 2.1 Ferritin Total Bilirubin AST ALT Alkaline Phosphatase Lactate Dehydrogenase Troponin I 0.037 C-React Prot Ext Range Total Protein Albumin Globulin Albumin/Globulin Ratio Procalcitonin Urine Color Urine Clarity Urine pH Ur Specific [place] Urine Protein Urine Glucose (UA) Urine Ketones Urine Occult Blood Urine Nitrite Urine Bilirubin Urine Urobilinogen Ur Leukocyte Esterase Urine RBC Urine WBC Ur Squamous Epith Cells Urine Bacteria Hyaline Casts Urine Mucus COVID-19 (GINA) MRSA (PCR) POC Glucose 10/14/19 10/14/19 10/14/19 01:35 03:28 03:51 WBC RBC Hgb Hct MCV MCH MCHC RDW Std Deviation RDW Coeff of Xenia Plt Count MPV Immature Gran % (Auto) Neut % (Auto) Lymph % (Auto) [place] % (Auto) Eos % (Auto) Baso % (Auto) Absolute Neuts (auto) Absolute Lymphs (auto) Nucleated RBC % Differential Comment PT INR APTT Specimen Type ART Sample Site L RADIAL pH 7.26 L Bicarbonate Actual 21.4 L POC Total CO2 23 Base Excess -6 L O2 Saturation 88 L O2 % 80 ABG pCO2 47.8 H ABG pO2 63 L Sha Test POS Respiration Rate 14 O2 Delivery Device Vent Liter Flow Vent Mode A-C Tidal Volume 400 POC PEEP 5 Blood Gas Notified Whom ED Sodium Potassium Chloride Carbon Dioxide Anion Gap BUN Creatinine Estim Creat Clear Calc Est GFR (MDRD) Af Amer Est GFR (MDRD) Non-Af BUN/Creatinine Ratio Glucose Lactic Acid 2.3 H* Calcium Phosphorus Magnesium Ferritin Total Bilirubin AST ALT Alkaline Phosphatase Lactate Dehydrogenase Troponin I C-React Prot Ext Range Total Protein Albumin Globulin Albumin/Globulin Ratio Procalcitonin Urine Color Gail Urine Clarity Clear Urine pH 5.0 Ur Specific [place] 1.030 Urine Protein 30 H Urine Glucose (UA) Normal Urine Ketones 15 H Urine Occult Blood Negative Urine Nitrite Negative Urine Bilirubin Negative Urine Urobilinogen 1 H Ur Leukocyte Esterase 25 H Urine RBC 0 SEEN Urine WBC 0 SEEN Ur Squamous Epith Cells 0 SEEN Urine Bacteria 0 SEEN Hyaline Casts 0-5 SEEN Urine Mucus 0 SEEN COVID-19 (GINA) MRSA (PCR) POC Glucose 10/14/19 10/14/19 10/14/19 03:55 04:15 04:15 WBC 12.5 H RBC 4.80 Hgb 15.1 Hct 46.4 MCV 96.7 H MCH 31.5 MCHC 32.5 RDW Std Deviation 45.8 H RDW Coeff of Xenia 12.8 Plt Count 145 L MPV 12.2 H Immature Gran % (Auto) 0.600 Neut % (Auto) 87.0 H Lymph % (Auto) 5.8 L [place] % (Auto) 6.1 Eos % (Auto) 0.0 Baso % (Auto) 0.5 Absolute Neuts (auto) 10.9 H Absolute Lymphs (auto) 0.72 L Nucleated RBC % 0 Differential Comment PT INR APTT Specimen Type Sample Site pH Bicarbonate Actual POC Total CO2 Base Excess O2 Saturation O2 % ABG pCO2 ABG pO2 Sha Test Respiration Rate O2 Delivery Device Liter Flow Vent Mode Tidal Volume POC PEEP Blood Gas Notified Whom Sodium 138 Potassium 4.0 Chloride 104 Carbon Dioxide 23.0 Anion Gap 11 BUN 19 H Creatinine 0.72 Estim Creat Clear Calc 58.92 Est GFR (MDRD) Af Amer 137 Est GFR (MDRD) Non-Af 114 BUN/Creatinine Ratio 26.2 H Glucose 169 H Lactic Acid Calcium 8.4 L Phosphorus Magnesium Ferritin Total Bilirubin 0.60 AST 35 ALT 23 Alkaline Phosphatase 73 Lactate Dehydrogenase Troponin I C-React Prot Ext Range Total Protein 6.9 Albumin 3.3 Globulin 3.6 Albumin/Globulin Ratio 0.9 Procalcitonin Urine Color Urine Clarity Urine pH Ur Specific [place] Urine Protein Urine Glucose (UA) Urine Ketones Urine Occult Blood Urine Nitrite Urine Bilirubin Urine Urobilinogen Ur Leukocyte Esterase Urine RBC Urine WBC Ur Squamous Epith Cells Urine Bacteria Hyaline Casts Urine Mucus COVID-19 (GINA) Pending MRSA (PCR) POC Glucose 10/14/19 10/14/19 10/14/19 04:15 14:13 19:40 WBC RBC Hgb Hct MCV MCH MCHC RDW Std Deviation RDW Coeff of X[place] Plt Count MPV Immature Gran % (Auto) Neut % (Auto) Lymph % (Auto) [place] % (Auto) Eos % (Auto) Baso % (Auto) Absolute Neuts (auto) Absolute Lymphs (auto) Nucleated RBC % Differential Comment PT INR APTT Specimen Type Sample Site pH Bicarbonate Actual POC Total CO2 Base Excess O2 Saturation O2 % ABG pCO2 ABG pO2 Sha Test Respiration Rate O2 Delivery Device Liter Flow Vent Mode Tidal Volume POC PEEP Blood Gas Notified Whom Sodium Potassium Chloride Carbon Dioxide Anion Gap BUN Creatinine Estim Creat Clear Calc Est GFR (MDRD) Af Amer Est GFR (MDRD) Non-Af BUN/Creatinine Ratio Glucose Lactic Acid Calcium Phosphorus Magnesium Ferritin Total Bilirubin AST ALT Alkaline Phosphatase Lactate Dehydrogenase Troponin I C-React Prot Ext Range Total Protein Albumin Globulin Albumin/Globulin Ratio Procalcitonin Urine Color Urine Clarity Urine pH Ur Specific [place] Urine Protein Urine Glucose (UA) Urine Ketones Urine Occult Blood Urine Nitrite Urine Bilirubin Urine Urobilinogen Ur Leukocyte Esterase Urine RBC Urine WBC Ur Squamous Epith Cells Urine Bacteria Hyaline Casts Urine Mucus COVID-19 (GINA) MRSA (PCR) Negative POC Glucose 135 H 128 H 10/15/19 10/15/19 10/15/19 01:03 04:10 04:10 WBC 12.4 H RBC 4.02 L Hgb 12.7 L Hct 38.8 L MCV 96.5 H MCH 31.6 MCHC 32.7 RDW Std Deviation 45.3 H RDW Coeff of Xenia 12.7 Plt Count 112 L MPV 12.2 H Immature Gran % (Auto) 0.600 Neut % (Auto) 91.8 H Lymph % (Auto) 4.2 L [place] % (Auto) 3.3 Eos % (Auto) 0.0 Baso % (Auto) 0.1 Absolute Neuts (auto) 11.4 H Absolute Lymphs (auto) 0.52 L Nucleated RBC % 0 Differential Comment SCANNED PT INR APTT Specimen Type Sample Site pH Bicarbonate Actual POC Total CO2 Base Excess O2 Saturation O2 % ABG pCO2 ABG pO2 Sha Test Respiration Rate O2 Delivery Device Liter Flow Vent Mode Tidal Volume POC PEEP Blood Gas Notified Whom Sodium 138 Potassium 4.6 Chloride 107 Carbon Dioxide 26.0 Anion Gap 5 BUN 18 Creatinine 0.66 L Estim Creat Clear Calc 58.92 Est GFR (MDRD) Af Amer 152 Est GFR (MDRD) Non-Af 126 BUN/Creatinine Ratio 27.1 H Glucose 176 H Lactic Acid Calcium 7.8 L Phosphorus Magnesium Ferritin Total Bilirubin 0.30 AST 63 H ALT 19 Alkaline Phosphatase 54 Lactate Dehydrogenase Troponin I C-React Prot Ext Range Total Protein 5.6 L Albumin 2.5 L Globulin 3.1 Albumin/Globulin Ratio 0.8 L Procalcitonin Urine Color Urine Clarity Urine pH Ur Specific [place] Urine Protein Urine Glucose (UA) Urine Ketones Urine Occult Blood Urine Nitrite Urine Bilirubin Urine Urobilinogen Ur Leukocyte Esterase Urine RBC Urine WBC Ur Squamous Epith Cells Urine Bacteria Hyaline Casts Urine Mucus COVID-19 (GINA) MRSA (PCR) POC Glucose 154 H 10/15/19 05:06 WBC RBC Hgb Hct MCV MCH MCHC RDW Std Deviation RDW Coeff of X[place] Plt Count MPV Immature Gran % (Auto) Neut % (Auto) Lymph % (Auto) [place] % (Auto) Eos % (Auto) Baso % (Auto) Absolute Neuts (auto) Absolute Lymphs (auto) Nucleated RBC % Differential Comment PT INR APTT Specimen Type Sample Site pH Bicarbonate Actual POC Total CO2 Base Excess O2 Saturation O2 % ABG pCO2 ABG pO2 Sha Test Respiration Rate O2 Delivery Device Liter Flow Vent Mode Tidal Volume POC PEEP Blood Gas Notified Whom Sodium Potassium Chloride Carbon Dioxide Anion Gap BUN Creatinine Estim Creat Clear Calc Est GFR (MDRD) Af Amer Est GFR (MDRD) Non-Af BUN/Creatinine Ratio Glucose Lactic Acid Calcium Phosphorus Magnesium Ferritin Total Bilirubin AST ALT Alkaline Phosphatase Lactate Dehydrogenase Troponin I C-React Prot Ext Range Total Protein Albumin Globulin Albumin/Globulin Ratio Procalcitonin Urine Color Urine Clarity Urine pH Ur Specific [place] Urine Protein Urine Glucose (UA) Urine Ketones Urine Occult Blood Urine Nitrite Urine Bilirubin Urine Urobilinogen Ur Leukocyte Esterase Urine RBC Urine WBC Ur Squamous Epith Cells Urine Bacteria Hyaline Casts Urine Mucus COVID-19 (GINA) MRSA (PCR) POC Glucose 177 H Microbiology 10/14/19 Unknown Urine Catheter - [place] Gram Stain - Final 10/14/19 14:15 Urine Catheter - [place] Streptococcus pneumoniae Antigen (M - Final 10/14/19 14:15 Urine Catheter - [place] Legionella Antigen - Final 10/14/19 Unknown Sputum, Induced/Lukens Gram Stain - Final 10/14/19 00:49 Mucosa - Nose Respiratory Panel (PCR) - Final 10/14/19 00:49 Mucosa - Nose Rapid RSV (DFA) - Final 10/14/19 00:49 Mucosa - Nose Influenza Types A,B Direct FA (MARC) - Final 10/14/19 00:38 Mucosa - Throat Group A Streptococcus Rapid Screen - Preliminary Clinical Impression(s) from Imaging Studies Chest X-Ray 10/14/19 01:05 IMPRESSION: Bilateral lower lobe pneumonia. Electronically Signed: Temi Richards, at 1:29 EDT Tel , Service support , Chest X-Ray 10/14/19 02:02 IMPRESSION: Diffuse ill-defined opacities are seen more prominent in the perihilar regions and lung bases suggesting bilateral pneumonia or pulmonary edema. Electronically Signed: Temi Richards, at 4:03 EDT Tel , Service support , KUB X-Ray 10/14/19 02:40 IMPRESSION: An NG tube is seen with tip within the gastric lumen is in good position. Electronically Signed: Temi Richards, at 2:58 EDT Tel , Service support , Chest CTA 10/14/19 14:27 IMPRESSION: No demonstrated pulmonary embolism or arterial dissection. Bilateral pleural effusions associated with dependent consolidation within the lower lobes. Atherosclerosis. Electronically Signed: Kaila Nicole MD at 15:58 EDT Tel , Service support , Medical Necessity - Tobacco Use Smoking Status: Former smoker Tobacco Use: Non-smoker Assessment/Plan All Active Problems (Last Reviewed 07/15/18 @ 16:45 by April Hyatt) Severe sepsis (Acute) Acute on chronic respiratory failure with hypoxia (Acute) COPD exacerbation (Acute) Bilateral pneumonia (Acute) Suspected 2018 novel coronavirus infection (Acute) Pneumonia of both lower lobes (Acute) Respiratory failure (Acute) Bronchitis (Acute) URI (upper respiratory infection) (Acute) Sinusitis, acute maxillary (Acute) RECOMMENDATIONS: 1. Proceed with a trial of extubation this morning. 2. Once extubated, wean supplemental oxygen to maintain saturations at or above 90%. 3. Bedside swallow evaluation to be completed prior to advancing diet. 4. Encourage incentive spirometer use and mobilize patient as tolerated. 5. Discontinue supplemental IV fluids. 6. Continue scheduled bronchodilators and IV steroids. The patient can likely be transitioned to prednisone beginning tomorrow. 7. Continue empiric antimicrobials per infectious diseases recommendations. 8. Await COVID test results. IMPRESSIONS: 1. Acute hypoxemic respiratory failure Likely secondary to COPD with exacerbation precipitated by bilateral lower lobe pneumonia. The patient was also placed in COVID precautions and testing was sent. The patient improved with supportive measures including invasive mechanical ventilatory support, antimicrobials, bronchodilators and steroids. He was able to be extubated on the morning of October 14. His oxygen will be weaned to maintain saturations at or above 90%. Encourage incentive spirometer use and mobilize patient as tolerated. Bedside swallow evaluation to be completed prior to advancing diet. Await COVID test results. 2. Severe sepsis Improved. Appears to be secondary to underlying pulmonary infectious process. Continue current supportive measures and antimicrobials as noted above. 3. Coronary artery disease status post CABG Continue outpatient cardiac medication regimen. 4. Chronic alcohol dependency/chronic pain syndrome/anxiety/depression/hypertension/hyperlipidemia Complicates care, management, recovery and prognosis. Continue home medications as indicated. TIME: 35 minutes of critical care time, independent of procedures, was spent addressing the patient's acute hypoxemic respiratory failure, severe sepsis, coronary artery disease, review of all data and collaboration with the care team. [id number]) [phone] Critical care first hour
--- NOTE | 2019-10-15 06:50 | NURSING ---
Collette, [employer] bedside with this RN. Pt extubated to 3L NC
[2019-10-15] MEDS: Ipratropium/Albuterol Sulfate 3 ML AMPUL.NEB INHALATION ×4 (06:55→19:20)
[2019-10-15 11:55] LABS: Base Excess -4 mmol/L (-2 to +2); Bicarbonate 22.5 mmol/L (22-26); PO2 61 mmHG (75-100); SO2 89 % (95-99); Total Carbon Dioxide 24 mmol/L; pCO2 44.6 mmHg (35-45); pH 7.31 (7.35-7.45)
[2019-10-15 11:58] LABS: Blood Gas Specimen Type ART
[2019-10-15 11:59] LABS: Allen Test POS; O2 Delivery Device Nasal Can; SITE L BRACHIAL; Time Given 1137
[2019-10-15] MEDS: buPROPion (SR) 150 MG Tablet.SA PO (12:08)
[2019-10-15] MEDS: Clopidogrel Bisulfate 75 MG Tablet PO (12:08)
[2019-10-15] MEDS: Enoxaparin 40 MG/0.4 ML Syringe SC (12:08)
[2019-10-15] MEDS: Ranolazine 500 MG Tablet 1000 MG PO (12:08)
[2019-10-15] MEDS: Thiamine Hydrochloride 100 MG Tablet PO ×2 (12:09→17:10)
[2019-10-15] MEDS: Gabapentin 300 MG Capsule PO (12:09)
[2019-10-15] MEDS: Metoprolol Tartrate 50 MG Tablet 75 MG PO ×2 (12:09→22:11)
[2019-10-15] MEDS: Multivitamins,Ther W-Minerals Tablet 1 TABLET PO (12:09)
[2019-10-15] MEDS: Aspirin 81 MG TAB.CHEW PO (12:09)
[2019-10-15] MEDS: Folic Acid 1 MG Tablet PO (12:09)
[2019-10-15 12:21] LABS: Bedside Glucose 193 mg/dL (70-110)
[2019-10-15] MEDS: Furosemide 40 MG/4 ML Vial IV (12:25)
--- NOTE | 2019-10-15 12:54 | CM.UR ---
Participated in interdisciplinary rounds this am. He was extubated this am and placed on 3 L NC. Orders placed for PT/OT to eval and treat. Not completed at this time. Discharge plans are TBD. Will await PT/OT evals. Yariel Coronel RN, [facility].
--- NOTE | 2019-10-15 16:12 | PCM.PN.HOSP ---
Patient Problems: Active and Suspected Problems (Last Reviewed 07/15/18 @ 16:45 by April Hyatt) Severe sepsis (Acute) Acute on chronic respiratory failure with hypoxia (Acute) COPD exacerbation (Acute) Bilateral pneumonia (Acute) Suspected 2019 novel coronavirus infection (Acute) Pneumonia of both lower lobes (Acute) Respiratory failure (Acute) Subjective: Extubated and doing well, he is maintaining his sats on 3 L nasal cannula. No issues overnight Vitals/I&O's: Vital Signs Temp Pulse Resp BP Pulse Ox 98.4 F 94 16 160/93 H 92 10/15/19 10:00 10/15/19 15:20 10/15/19 15:20 10/15/19 12:00 10/15/19 12:00 Oxygen Flow Rate (L/min) 3 Oxygen Delivery Method Nasal Cannula Weight: 138 lb 10.732 oz Body Mass Index (BMI) 21.5 Intake and Output for Last 24 Hours 10/13/19 10/14/19 10/15/19 23:59 23:59 23:59 Intake Total 2586.79 / 2880.17 2126.46 / 2126.46 Output Total 1175 / 1375 750 / 750 Balance 1411.79 / 1505.17 1376.46 / 1376.46 General: Alert, Oriented x3, Cooperative, No apparent distress HEENT: Atraumatic, PERRLA, EOMI, Normocephalic Oral: Moist Mucosa Neck: Supple, No JVD Lungs: Normal air movement, No rhonchi, No wheeze, No rales, Diminished Cardiovascular: Regular Rhythm, Normal S1, Normal S2, No murmurs, Tachycardic Abdomen: Soft, Non Tender, Non-Distended, No Hepato-splenomegaly Extremities: No edema, Capillary Refill Less than 3 Seconds Skin: No rashes, No breakdown Neurological: Neuro grossly intact, Sensory exam intact to light touch and pain Psych/Mental Status: Normal Affect, Appropriate Microbiology Past 72 Hours 10/14/19 Unknown Sputum, Induced/Lukens Gram Stain - Final 10/14/19 Unknown Sputum, Induced/Lukens Respiratory Culture - Preliminary Appears to be normal respiratory cyrus. Further studies to follow. 10/14/19 01:35 Urine, Clean Catch Urine Culture - Preliminary Culture exhibits no growth. 10/14/19 00:38 Mucosa - Throat Group A Streptococcus Rapid Screen - Preliminary 10/14/19 Unknown Urine Catheter - [place] Gram Stain - Final 10/14/19 14:15 Urine Catheter - [place] Streptococcus pneumoniae Antigen (M - Final 10/14/19 14:15 Urine Catheter - [place] Legionella Antigen - Final 10/14/19 00:49 Mucosa - Nose Respiratory Panel (PCR) - Final 10/14/19 00:49 Mucosa - Nose Rapid RSV (DFA) - Final 10/14/19 00:49 Mucosa - Nose Influenza Types A,B Direct FA (MARC) - Final Laboratory Results 10/14/19 19:40: POC Glucose 128 H 10/15/19 01:03: POC Glucose 154 H 10/15/19 04:10: WBC 12.4 H, RBC 4.02 L, Hgb 12.7 L, Hct 38.8 L, MCV 96.5 H, MCH 31.6, MCHC 32.7, RDW Std Deviation 45.3 H, RDW Coeff of Xenia 12.7, Plt Count 112 L, MPV 12.2 H, Immature Gran % (Auto) 0.600, Neut % (Auto) 91.8 H, Lymph % (Auto) 4.2 L, [place] % (Auto) 3.3, Eos % (Auto) 0.0, Baso % (Auto) 0.1, Absolute Neuts (auto) 11.4 H, Absolute Lymphs (auto) 0.52 L, Nucleated RBC % 0, Differential Comment SCANNED 10/15/19 04:10: Sodium 138, Potassium 4.6, Chloride 107, Carbon Dioxide 26.0, Anion Gap 5, BUN 18, Creatinine 0.66 L, Estim Creat Clear Calc 58.92, Est GFR (MDRD) Af Amer 152, Est GFR (MDRD) Non-Af 126, BUN/Creatinine Ratio 27.1 H, Glucose 176 H, Calcium 7.8 L, Total Bilirubin 0.30, AST 63 H, ALT 19, Alkaline Phosphatase 54, Total Protein 5.6 L, Albumin 2.5 L, Globulin 3.1, Albumin/Globulin Ratio 0.8 L 10/15/19 04:10: B-Natriuretic Peptide 630.0 H 10/15/19 05:06: POC Glucose 177 H 10/15/19 11:37: Specimen Type ART, Sample Site L BRACHIAL, pH 7.31 L, Bicarbonate Actual 22.5, POC Total CO2 24, Base Excess -4 L, O2 Saturation 89 L, ABG pCO2 44.6, ABG pO2 61 L, Sha Test POS, O2 Delivery Device Nasal Can, Liter Flow 3.0, Blood Gas Notified Whom RN, Blood Gas Notified Time 1137 10/15/19 12:04: POC Glucose 193 H Current Medications Acetaminophen (Tylenol) 650 mg PO Q6H PRN PRN PRN Reason: Pain Score 1-10/Temp > 100.7 F Al Hydroxide/Mg Hydroxide (Mylanta Ii) 30 ml PO Q6H PRN PRN PRN Reason: Gastric Burning Albuterol Sulfate (Ventolin Aerosols) 2.5 mg INHALATION Q2H PRN PRN PRN Reason: Dyspnea, wheezing Albuterol/Ipratropium (Duoneb) 3 ml INHALATION Q4HWA.RT [facility] Last Admin: 10/15/19 15:18 Dose: 3 ml Documented by: Aspirin (Aspirin, Baby) 81 mg PO DAILY [facility] Last Admin: 10/15/19 12:09 Dose: 81 mg Documented by: Atorvastatin Calcium (Lipitor) 10 mg GT QHS [facility] Last Admin: 10/14/19 21:33 Dose: 10 mg Documented by: Bupropion HCl (Wellbutrin Sr (150mg Tablets)) 150 mg PO DAILY [facility] Last Admin: 10/15/19 12:08 Dose: 150 mg Documented by: Chlorhexidine Gluconate () 15 ml PO BID [facility] Last Admin: 10/15/19 12:11 Dose: Not Given Documented by: Clopidogrel Bisulfate (Plavix) 75 mg PO DAILY [facility] Last Admin: 10/15/19 12:08 Dose: 75 mg Documented by: Dextrose (D50w Syringe) 0 gm IV X1 PRN; Protocol PRN Reason: Hypoglycemia Enoxaparin Sodium (Lovenox) 40 mg SC DAILY [facility] Last Admin: 10/15/19 12:08 Dose: 40 mg Documented by: Folic Acid (Folic Acid) 1 mg PO DAILY@0800 [facility] Stop: 10/16/19 08:01 Last Admin: 10/15/19 12:09 Dose: 1 mg Documented by: Gabapentin (Neurontin) 300 mg PO DAILY [facility] Last Admin: 10/15/19 12:09 Dose: 300 mg Documented by: Glucagon () 1 mg IM .X1 PRN PRN Reason: Hypoglycemia Guaifenesin (Robitussin) 10 ml PO Q4H PRN PRN PRN Reason: COUGH Sodium Chloride () 250 mls @ 15 mls/hr IV .[id number] PRN PRN Reason: Saline Flush Last Admin: 10/15/19 12:00 Dose: 15 mls/hr Documented by: Sodium Chloride () 250 mls @ 15 mls/hr IV .[id number] PRN PRN Reason: Additional IVPB Infusion Ceftriaxone Sodium 2 gm/ (Sodium Chloride) 50 mls @ 100 mls/hr IV Q24@2200 [facility] Last Infusion: 10/15/19 04:25 Dose: Infused Documented by: Insulin Human Lispro (Humalog Kwikpen ([facility] [place])) 0 unit SC Q6 [facility]; Protocol Last Admin: 10/15/19 12:11 Dose: 2 units Documented by: Magnesium Hydroxide (Milk Of Magnesia) 30 ml PO DAILY PRN PRN PRN Reason: Constipation Methylprednisolone (Solu-Medrol) 40 mg IV Q8 [facility] Last Admin: 10/15/19 13:21 Dose: 40 mg Documented by: Metoprolol Tartrate (Lopressor (Beta Agnieszka)) 75 mg PO BID [facility] Last Admin: 10/15/19 12:09 Dose: 75 mg Documented by: Multivitamins/Minerals (Multivitamin With Minerals (Bkc)) [facility] Last Admin: 10/15/19 12:09 Dose: 1 tablet Documented by: Nitroglycerin (Nitrostat) 0.4 mg SUBLINGUAL Q5M PRN PRN Reason: CARDIAC/CHEST PAIN Ondansetron HCl (Zofran) 4 mg IV Q8H PRN PRN PRN Reason: NAUSEA/VOMITING Psyllium Hydrophilic Mucilloid (Metamucil) 1 packet PO DAILY PRN PRN PRN Reason: Constipation Ranolazine (Ranexa) 1,000 mg PO DAILY [facility] Last Admin: 10/15/19 12:08 Dose: 1,000 mg Documented by: Senna/Docusate Sodium (Senokot-S, Ami-Colace) 2 tablet PO BID PRN PRN PRN Reason: Constipation Sodium Chloride () 10 - 40 ml IV UD PRN PRN Reason: SALINE FLUSH Thiamine HCl (Vitamin B1) [facility] Stop: 10/16/19 17:01 Last Admin: 10/15/19 12:09 Dose: 100 mg Documented by: Throat Lozenges (Cepacol Sore Throat Lozenge) 1 lozenge MUCOUS MEM Q2H PRN PRN PRN Reason: SORE THROAT STROKE Vital Signs/Narrative: Vital Signs Pulse Resp 10/15/19 15:20 94 16 Medical Necessity - Tobacco Use Smoking Status: Former smoker Tobacco Use: Non-smoker Assessment/Plan All Active Problems (Last Reviewed 07/15/18 @ 16:45 by April Hyatt) Severe sepsis (Acute) Acute on chronic respiratory failure with hypoxia (Acute) COPD exacerbation (Acute) Bilateral pneumonia (Acute) Suspected 2018 novel coronavirus infection (Acute) Pneumonia of both lower lobes (Acute) Respiratory failure (Acute) Bronchitis (Acute) URI (upper respiratory infection) (Acute) Sinusitis, acute maxillary (Acute) 1. Severe sepsis and acute hypoxic respiratory failure secondary to acute on chronic COPD exacerbation with bilateral pneumonia -Coronavirus test is pending -Recently extubated doing well -Continue with Rocephin -Blood cultures are pending -Sputum cultures are pending -Urine strep and Legionella antigens are negative -Continue to continue with breathing treatments and steroids 2. CAD status post CABG/HTN/HLD/carotid artery stenosis status post bilateral carotid endarterectomy -Continue with aspirin and Plavix -With his home blood pressure medications, his blood pressure is stable -Continue with statins 3. 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 Anxiety/depression/alcohol abuse/chronic pain syndrome -Stable -Continue Wellbutrin -Continue with CIWA protocol, and if necessary can add Ativan -If he stays off the ventilator, can restart his home narcotic regimen 5. Severe protein calorie malnutrition -Nutrition consultation DVT: Lovenox Inpatient E&M: 32181 Subs Hosp L2
[2019-10-15 17:40] LABS: Bedside Glucose 162 mg/dL (70-110)
[2019-10-15] MEDS: LORazepam 1 MG Tablet 2 MG PO ×2 (18:38→22:29)
--- NOTE | 2019-10-15 20:25 | NURSING ---
Notified by lab: Covid-19 result Negative
[2019-10-15] MEDS: 0.9% Saline Lock 10 ML Syringe IV (22:00)
[2019-10-15] MEDS: Atorvastatin Calcium 10 MG Tablet GT (22:11)
[2019-10-16] VITALS (31 sets, daily range): BP systolic 146–172; BP diastolic 80–95; PULSE 79–101; RESP 10–22; TEMP 36.7–37.3; O2SAT 89–98
[2019-10-16] MEDS: 0.9% Saline Lock 10 ML Syringe IV ×2 (00:28→05:08)
[2019-10-16 01:01] LABS: Bedside Glucose 138 mg/dL (70-110)
--- NOTE | 2019-10-16 02:27 | NURSING ---
Pt was difficult to awaken and unable to stay awake long enough to safely take pills. 0200 dose of ativan held by this RN. Agustina LLOYD
[2019-10-16] MEDS: LORazepam 1 MG Tablet 2 MG PO (03:23)
--- NOTE | 2019-10-16 03:32 | NURSING ---
Pt more awake/alert and given 0200 dose of PO ativan, unscheduled. Agustina LLOYD
[2019-10-16 05:31] LABS: Bedside Glucose 135 mg/dL (70-110)
--- NOTE | 2019-10-16 06:16 | PCM.PN.INT ---
Subjective: The patient was seen and examined at the bedside this morning. Events from the last 24 hours have been reviewed. The patient is currently afebrile, hemodynamically stable and maintaining appropriate oxygen saturations on 4 L/min via nasal cannula. The patient has done relatively well from a respiratory perspective following extubation yesterday. COVID testing was reported to be negative yesterday. The patient was started on Ativan yesterday over concerns for possible alcohol withdrawal. Nursing staff reported that the patient became extremely somnolent after he was given his PO dose of Ativan. Therefore, the benzodiazepine order was discontinued this morning. Objective: The patient's most recent lab work, culture data and imaging studies have all been personally reviewed. Respiratory viral panel was negative. Strep and urine Legionella antigens were negative. Blood, urine and sputum cultures are pending. COVID testing was negative. General: Alert, No apparent distress HEENT: Atraumatic, Normocephalic Oral: No Gingival or Mucosal Lesions/ Ulcerations Neck: Supple, No Nodes, Trachea Midline Lungs: No rhonchi, No wheeze, No rales, Diminished Cardiovascular: Regular rate, Regular Rhythm, Normal S1, Normal S2, No murmurs Abdomen: Bowel Sounds Present, Soft, Non Tender Extremities: No clubbing, No cyanosis, No edema Skin: No breakdown Musculoskeletal: No Muscle Wasting Lymphatic: No Cervical, Supraclavicular, or Inguinal Adenopathy Neurological: Neuro grossly intact Psych/Mental Status: Restless Vital Signs Temp Pulse Resp BP Pulse Ox 98.9 F 89 13 169/88 H 90 10/16/19 06:00 10/16/19 06:00 10/16/19 06:00 10/16/19 06:00 10/16/19 06:00 Oxygen Flow Rate (L/min) 4 Oxygen Delivery Method Nasal Cannula Weight: 138 lb 10.732 oz Body Mass Index (BMI) 21.5 Intake and Output for Last 24 Hours 10/14/19 10/15/19 10/16/19 23:59 23:59 23:59 Intake Total 2586.79 / 2880.17 2416.46 / 2416.46 Output Total 1175 / 1375 1725 / 1725 275 / 275 Balance 1411.79 / 1505.17 691.46 / 691.46 -275 / -275 Labs (Last 48 Hours) 10/14/19 10/14/19 10/14/19 01:26 03:51 03:55 WBC RBC Hgb Hct MCV MCH MCHC RDW Std Deviation RDW Coeff of Xenia Plt Count MPV Immature Gran % (Auto) Neut % (Auto) Lymph % (Auto) [place] % (Auto) Eos % (Auto) Baso % (Auto) Absolute Neuts (auto) Absolute Lymphs (auto) Nucleated RBC % Differential Comment Specimen Type ART ART Sample Site L RADIAL L RADIAL pH 7.33 L 7.26 L Bicarbonate Actual 22.1 21.4 L POC Total CO2 23 23 Base Excess -4 L -6 L O2 Saturation 86 L 88 L O2 % 80 ABG pCO2 42.3 47.8 H ABG pO2 56 L 63 L Sha Test POS POS Respiration Rate 14 O2 Delivery Device NRB Mask Vent Liter Flow 15.0 Vent Mode A-C Tidal Volume 400 POC PEEP 5 Blood Gas Notified Whom ED MD ED MD Blood Gas Notified Time Sodium Potassium Chloride Carbon Dioxide Anion Gap BUN Creatinine Estim Creat Clear Calc Est GFR (MDRD) Af Amer Est GFR (MDRD) Non-Af BUN/Creatinine Ratio Glucose Calcium Total Bilirubin AST ALT Alkaline Phosphatase B-Natriuretic Peptide Total Protein Albumin Globulin Albumin/Globulin Ratio COVID-19 (GINA) Not Detected MRSA (PCR) POC Glucose 10/14/19 10/14/19 10/14/19 04:15 14:13 19:40 WBC RBC Hgb Hct MCV MCH MCHC RDW Std Deviation RDW Coeff of Xenia Plt Count MPV Immature Gran % (Auto) Neut % (Auto) Lymph % (Auto) [place] % (Auto) Eos % (Auto) Baso % (Auto) Absolute Neuts (auto) Absolute Lymphs (auto) Nucleated RBC % Differential Comment Specimen Type Sample Site pH Bicarbonate Actual POC Total CO2 Base Excess O2 Saturation O2 % ABG pCO2 ABG pO2 Sha Test Respiration Rate O2 Delivery Device Liter Flow Vent Mode Tidal Volume POC PEEP Blood Gas Notified Whom Blood Gas Notified Time Sodium Potassium Chloride Carbon Dioxide Anion Gap BUN Creatinine Estim Creat Clear Calc Est GFR (MDRD) Af Amer Est GFR (MDRD) Non-Af BUN/Creatinine Ratio Glucose Calcium Total Bilirubin AST ALT Alkaline Phosphatase B-Natriuretic Peptide Total Protein Albumin Globulin Albumin/Globulin Ratio COVID-19 (GINA) MRSA (PCR) Negative POC Glucose 135 H 128 H 04/05/2510/15/19 10/15/19 01:03 04:10 04:10 WBC 12.4 H RBC 4.02 L Hgb 12.7 L Hct 38.8 L MCV 96.5 H MCH 31.6 MCHC 32.7 RDW Std Deviation 45.3 H RDW Coeff of Xenia 12.7 Plt Count 112 L MPV 12.2 H Immature Gran % (Auto) 0.600 Neut % (Auto) 91.8 H Lymph % (Auto) 4.2 L [place] % (Auto) 3.3 Eos % (Auto) 0.0 Baso % (Auto) 0.1 Absolute Neuts (auto) 11.4 H Absolute Lymphs (auto) 0.52 L Nucleated RBC % 0 Differential Comment SCANNED Specimen Type Sample Site pH Bicarbonate Actual POC Total CO2 Base Excess O2 Saturation O2 % ABG pCO2 ABG pO2 Sha Test Respiration Rate O2 Delivery Device Liter Flow Vent Mode Tidal Volume POC PEEP Blood Gas Notified Whom Blood Gas Notified Time Sodium 138 Potassium 4.6 Chloride 107 Carbon Dioxide 26.0 Anion Gap 5 BUN 18 Creatinine 0.66 L Estim Creat Clear Calc 58.92 Est GFR (MDRD) Af Amer 152 Est GFR (MDRD) Non-Af 126 BUN/Creatinine Ratio 27.1 H Glucose 176 H Calcium 7.8 L Total Bilirubin 0.30 AST 63 H ALT 19 Alkaline Phosphatase 54 B-Natriuretic Peptide Total Protein 5.6 L Albumin 2.5 L Globulin 3.1 Albumin/Globulin Ratio 0.8 L COVID-19 (GINA) MRSA (PCR) POC Glucose 154 H 10/15/19 10/15/19 10/15/19 04:10 05:06 11:37 WBC RBC Hgb Hct MCV MCH MCHC RDW Std Deviation RDW Coeff of Xenia Plt Count MPV Immature Gran % (Auto) Neut % (Auto) Lymph % (Auto) [place] % (Auto) Eos % (Auto) Baso % (Auto) Absolute Neuts (auto) Absolute Lymphs (auto) Nucleated RBC % Differential Comment Specimen Type ART Sample Site L BRACHIAL pH 7.31 L Bicarbonate Actual 22.5 POC Total CO2 24 Base Excess -4 L O2 Saturation 89 L O2 % ABG pCO2 44.6 ABG pO2 61 L Sha Test POS Respiration Rate O2 Delivery Device Nasal Can Liter Flow 3.0 Vent Mode Tidal Volume POC PEEP Blood Gas Notified Whom RN Blood Gas Notified Time 1137 Sodium Potassium Chloride Carbon Dioxide Anion Gap BUN Creatinine Estim Creat Clear Calc Est GFR (MDRD) Af Amer Est GFR (MDRD) Non-Af BUN/Creatinine Ratio Glucose Calcium Total Bilirubin AST ALT Alkaline Phosphatase B-Natriuretic Peptide 630.0 H Total Protein Albumin Globulin Albumin/Globulin Ratio COVID-19 (GINA) MRSA (PCR) POC Glucose 177 H 10/15/19 10/15/19 10/16/19 12:04 17:06 00:24 WBC RBC Hgb Hct MCV MCH MCHC RDW Std Deviation RDW Coeff of Xenia Plt Count MPV Immature Gran % (Auto) Neut % (Auto) Lymph % (Auto) [place] % (Auto) Eos % (Auto) Baso % (Auto) Absolute Neuts (auto) Absolute Lymphs (auto) Nucleated RBC % Differential Comment Specimen Type Sample Site pH Bicarbonate Actual POC Total CO2 Base Excess O2 Saturation O2 % ABG pCO2 ABG pO2 Sha Test Respiration Rate O2 Delivery Device Liter Flow Vent Mode Tidal Volume POC PEEP Blood Gas Notified Whom Blood Gas Notified Time Sodium Potassium Chloride Carbon Dioxide Anion Gap BUN Creatinine Estim Creat Clear Calc Est GFR (MDRD) Af Amer Est GFR (MDRD) Non-Af BUN/Creatinine Ratio Glucose Calcium Total Bilirubin AST ALT Alkaline Phosphatase B-Natriuretic Peptide Total Protein Albumin Globulin Albumin/Globulin Ratio COVID-19 (GINA) MRSA (PCR) POC Glucose 193 H 162 H 138 H 10/16/19 05:12 WBC RBC Hgb Hct MCV MCH MCHC RDW Std Deviation RDW Coeff of Xenia Plt Count MPV Immature Gran % (Auto) Neut % (Auto) Lymph % (Auto) [place] % (Auto) Eos % (Auto) Baso % (Auto) Absolute Neuts (auto) Absolute Lymphs (auto) Nucleated RBC % Differential Comment Specimen Type Sample Site pH Bicarbonate Actual POC Total CO2 Base Excess O2 Saturation O2 % ABG pCO2 ABG pO2 Sha Test Respiration Rate O2 Delivery Device Liter Flow Vent Mode Tidal Volume POC PEEP Blood Gas Notified Whom Blood Gas Notified Time Sodium Potassium Chloride Carbon Dioxide Anion Gap BUN Creatinine Estim Creat Clear Calc Est GFR (MDRD) Af Amer Est GFR (MDRD) Non-Af BUN/Creatinine Ratio Glucose Calcium Total Bilirubin AST ALT Alkaline Phosphatase B-Natriuretic Peptide Total Protein Albumin Globulin Albumin/Globulin Ratio COVID-19 (GINA) MRSA (PCR) POC Glucose 135 H Microbiology 10/14/19 Unknown Sputum, Induced/Lukens Gram Stain - Final 10/14/19 Unknown Sputum, Induced/Lukens Respiratory Culture - Preliminary Appears to be normal respiratory cyrus. Further studies to follow. 10/14/19 01:35 Urine, Clean Catch Urine Culture - Preliminary Culture exhibits no growth. 10/14/19 00:38 Mucosa - Throat Group A Streptococcus Rapid Screen - Preliminary 10/14/19 Unknown Urine Catheter - [place] Gram Stain - Final 10/14/19 14:15 Urine Catheter - [place] Streptococcus pneumoniae Antigen (M - Final 10/14/19 14:15 Urine Catheter - [place] Legionella Antigen - Final 10/14/19 00:49 Mucosa - Nose Respiratory Panel (PCR) - Final Clinical Impression(s) from Imaging Studies Chest X-Ray 10/14/19 01:05 IMPRESSION: Bilateral lower lobe pneumonia. Electronically Signed: Temi Richards, at 1:29 EDT Tel , Service support , Chest X-Ray 10/14/19 02:02 IMPRESSION: Diffuse ill-defined opacities are seen more prominent in the perihilar regions and lung bases suggesting bilateral pneumonia or pulmonary edema. Electronically Signed: Temi Richards at 4:03 EDT Tel , Service support , KUB X-Ray 10/14/19 02:40 IMPRESSION: An NG tube is seen with tip within the gastric lumen is in good position. Electronically Signed: Temi Richards at 2:58 EDT Tel , Service support , Chest CTA 10/14/19 14:27 IMPRESSION: No demonstrated pulmonary embolism or arterial dissection. Bilateral pleural effusions associated with dependent consolidation within the lower lobes. Atherosclerosis. Electronically Signed: Kaila Nicole MD at 15:58 EDT Tel , Service support , Medical Necessity - Tobacco Use Smoking Status: Former smoker Tobacco Use: Non-smoker Assessment/Plan All Active Problems (Last Reviewed 07/15/18 @ 16:45 by April Hyatt) Severe sepsis (Acute) Acute on chronic respiratory failure with hypoxia (Acute) COPD exacerbation (Acute) Bilateral pneumonia (Acute) Suspected 2019 novel coronavirus infection (Acute) Pneumonia of both lower lobes (Acute) Respiratory failure (Acute) Bronchitis (Acute) URI (upper respiratory infection) (Acute) Sinusitis, acute maxillary (Acute) RECOMMENDATIONS: 1. Continue to wean supplemental oxygen to maintain saturations at or above 90%. 2. Defer medical management of possible alcohol withdrawal to hospitalist. 3. Continue bronchodilators and IV steroids. The patient can likely be transitioned to prednisone 40 mg daily. 4. Encourage incentive spirometer use and mobilize patient as tolerated. 5. Continue empiric antimicrobials per infectious diseases recommendations. 6. The patient is medically stable for transfer out of the intensive care unit. IMPRESSIONS: 1. Acute hypoxemic respiratory failure Likely secondary to COPD with exacerbation precipitated by bilateral lower lobe pneumonia. COVID testing was negative. The patient improved with supportive measures including invasive mechanical ventilatory support, antimicrobials, bronchodilators and steroids. He was able to be extubated on the morning of October 14. His oxygen will be weaned to maintain saturations at or above 90%. Encourage incentive spirometer use and mobilize patient as tolerated. 2. Severe sepsis Improved. Appears to be secondary to underlying pulmonary infectious process. Continue current supportive measures and antimicrobials as noted above. 3. Coronary artery disease status post CABG Continue outpatient cardiac medication regimen. 4. Chronic alcohol dependency/chronic pain syndrome/anxiety/depression/hypertension/hyperlipidemia Complicates care, management, recovery and prognosis. Continue home medications as indicated. This note was generated with [employer] software. It may contain incorrect words, spelling, and punctuation that were not noted in checking the note before signing. Inpatient E&M: 32771 Subs Hosp L3
[2019-10-16] MEDS: Ipratropium/Albuterol Sulfate 3 ML AMPUL.NEB INHALATION ×4 (07:22→20:25)
[2019-10-16 08:32] LABS: Absolute Lymphocyte Count 0.56 X10^3/uL (0.83-4.51); Absolute Neutrophil Count 13.8 X10^3/uL (2.0-7.7); Basophil# 0.01 X10^3/uL; Basophil% 0.1 % (0-1); Hemoglobin 14.5 g/dL (13.0-16.5); Lymphocyte # 0.56 X10^3/ul (4.0); Lymphocyte % 3.6 % (19-41); Mean Corp Hgb Conc 32.2 g/dL (32-36); Mean Corpuscular Hgb 31.6 pg (27.0-32.0); Mean Platelet Vol. 12.4 fl (6.2-12.0); Monocyte# 0.84 X10^3/uL; Monocyte% 5.5 % (0-10); NRBC Flagged by Analyzer 0 % (0-5); Neutrophil # 13.84 X10^3/uL (2.7-7.7); POSITIVE DIFFERENTIAL YES; Platelet Count 110 K/mm3 (150-450); RBC Distribution Width CV 13.2 % (11.6-14.6); RBC Distribution Width SD 47.3 fl (35.1-43.9); Red Blood Count 4.59 M/mm3 (4.6-6.2); White Blood Count 15.4 K/mm3 (4.4-11.0)
[2019-10-16 08:41] LABS: Differential Indicated SCAN CRITERIA MET
[2019-10-16 08:45] LABS: ALB/GLOB Ratio 0.9 RATIO (0.9-2.4); AST(SGOT) 66 U/L (15-37); Alanine Aminotransfer ALT/SGPT 41 U/L (16-61); Albumin, Serum 3.2 g/dL (3.2-5.0); Alkaline Phosphatase 67 U/L (45-117); Anion Gap 7 (5-15); BUN 27 mg/dL (7-18); BUN/Creat Ratio 40.2 RATIO (10-20); Calcium,Total 8.6 mg/dL (8.5-10.1); Chloride 110 mmol/L (98-107); Creatinine, Serum 0.67 mg/dL (0.70-1.30); EST Glomerular Filtration Rate 124 mL/min (>60); Est Glom Filt Rate - Afr Amer 150 mL/min (>60); Estimated Creatinine Clearance 61.15 ml/min; Globulin 3.5 g/dL (2.2-4.2); Glucose 137 mg/dL (74-106); Potassium 4.3 mmol/L (3.5-5.1); Protein, Total 6.7 g/dL (6.4-8.2); Sodium Level 141 mmol/L (136-145)
--- NOTE | 2019-10-16 09:06 | PCM.PN.HOSP ---
Patient Problems: Active and Suspected Problems (Last Reviewed 07/15/18 @ 16:45 by April Hyatt) Severe sepsis (Acute) Acute on chronic respiratory failure with hypoxia (Acute) COPD exacerbation (Acute) Bilateral pneumonia (Acute) Suspected 2018 novel coronavirus infection (Acute) Pneumonia of both lower lobes (Acute) Respiratory failure (Acute) Subjective: Was extubated and had some mild withdrawal symptoms yesterday, was started on Ativan which made him very sleepy so this was discontinued. He will likely need to be started on phenobarbital taper. Vitals/I&O's: Vital Signs Temp Pulse Resp BP Pulse Ox 98.3 F 96 19 H 170/87 H 95 10/16/19 08:07 10/16/19 08:07 10/16/19 08:07 10/16/19 08:07 10/16/19 08:07 Oxygen Flow Rate (L/min) 4 Oxygen Delivery Method Nasal Cannula Weight: 138 lb 10.732 oz Body Mass Index (BMI) 21.5 Intake and Output for Last 24 Hours 10/14/19 10/15/19 10/16/19 23:59 23:59 23:59 Intake Total 2586.79 / 2880.17 2416.46 / 2416.46 Output Total 1175 / 1375 1725 / 1725 275 / 275 Balance 1411.79 / 1505.17 691.46 / 691.46 -275 / -275 General: Alert, restless HEENT: Atraumatic, PERRLA, EOMI, Normocephalic Oral: Moist Mucosa Neck: Supple, No JVD Lungs: Normal air movement, No rhonchi, No wheeze, No rales, Diminished Cardiovascular: Regular rate and rhythm, Normal S1, Normal S2, No murmurs Abdomen: Soft, Non Tender, Non-Distended, No Hepato-splenomegaly Extremities: No edema, Capillary Refill Less than 3 Seconds Skin: No rashes, No breakdown Neurological: Neuro grossly intact, Sensory exam intact to light touch and pain Psych/Mental Status: Agitated, restless Microbiology Past 72 Hours 10/14/19 Unknown Sputum, Induced/Lukens Gram Stain - Final 10/14/19 Unknown Sputum, Induced/Lukens Respiratory Culture - Preliminary 10/14/19 01:35 Urine, Clean Catch Urine Culture - Final Culture exhibits no growth. 10/14/19 00:38 Mucosa - Throat Group A Streptococcus Rapid Screen - Final 10/14/19 Unknown Urine Catheter - [place] Gram Stain - Final 10/14/19 14:15 Urine Catheter - [place] Streptococcus pneumoniae Antigen (M - Final 10/14/19 14:15 Urine Catheter - [place] Legionella Antigen - Final 10/14/19 00:49 Mucosa - Nose Respiratory Panel (PCR) - Final 10/14/19 00:49 Mucosa - Nose Rapid RSV (DFA) - Final 10/14/19 00:49 Mucosa - Nose Influenza Types A,B Direct FA (MARC) - Final Laboratory Results 10/14/19 03:55: COVID-19 (GINA) Not Detected 10/15/19 11:37: Specimen Type ART, Sample Site L BRACHIAL, pH 7.31 L, Bicarbonate Actual 22.5, POC Total CO2 24, Base Excess -4 L, O2 Saturation 89 L, ABG pCO2 44.6, ABG pO2 61 L, Sha Test POS, O2 Delivery Device Nasal Can, Liter Flow 3.0, Blood Gas Notified Whom RN, Blood Gas Notified Time 1137 10/15/19 12:04: POC Glucose 193 H 10/15/19 17:06: POC Glucose 162 H 10/16/19 00:24: POC Glucose 138 H 10/16/19 05:12: POC Glucose 135 H 10/16/19 08:05: WBC 15.4 H, RBC 4.59 L, Hgb 14.5, Hct 45.0, MCV 98.0 H, MCH 31.6, MCHC 32.2, RDW Std Deviation 47.3 H, RDW Coeff of Xenia 13.2, Plt Count 110 L, MPV 12.4 H, Immature Gran % (Auto) 0.800, Neut % (Auto) 90.0 H, Lymph % (Auto) 3.6 L, [place] % (Auto) 5.5, Eos % (Auto) 0.0, Baso % (Auto) 0.1, Absolute Neuts (auto) 13.8 H, Absolute Lymphs (auto) 0.56 L, Nucleated RBC % 0 10/16/19 08:05: Sodium 141, Potassium 4.3, Chloride 110 H, Carbon Dioxide 24.0, Anion Gap 7, BUN 27 H, Creatinine 0.67 L, Estim Creat Clear Calc 61.15, Est GFR (MDRD) Af Amer 150, Est GFR (MDRD) Non-Af 124, BUN/Creatinine Ratio 40.2 H, Glucose 137 H, Calcium 8.6, Total Bilirubin 0.50, AST 66 H, ALT 41, Alkaline Phosphatase 67, Total Protein 6.7, Albumin 3.2, Globulin 3.5, Albumin/Globulin Ratio 0.9 Current Medications Acetaminophen (Tylenol) 650 mg PO Q6H PRN PRN PRN Reason: Pain Score 1-10/Temp > 100.7 F Al Hydroxide/Mg Hydroxide (Mylanta Ii) 30 ml PO Q6H PRN PRN PRN Reason: Gastric Burning Albuterol Sulfate (Ventolin Aerosols) 2.5 mg INHALATION Q2H PRN PRN PRN Reason: Dyspnea, wheezing Albuterol/Ipratropium (Duoneb) 3 ml INHALATION Q4HWA.RT [facility] Last Admin: 10/16/19 07:22 Dose: 3 ml Documented by: Aspirin (Aspirin, Baby) 81 mg PO DAILY [facility] Last Admin: 10/15/19 12:09 Dose: 81 mg Documented by: Atorvastatin Calcium (Lipitor) 10 mg GT QHS [facility] Last Admin: 10/15/19 22:11 Dose: 10 mg Documented by: Bupropion HCl (Wellbutrin Sr (150mg Tablets)) 150 mg PO DAILY [facility] Last Admin: 10/15/19 12:08 Dose: 150 mg Documented by: Chlorhexidine Gluconate () 15 ml PO BID [facility] Last Admin: 10/15/19 22:01 Dose: Not Given Documented by: Clopidogrel Bisulfate (Plavix) 75 mg PO DAILY [facility] Last Admin: 10/15/19 12:08 Dose: 75 mg Documented by: Dextrose (D50w Syringe) 0 gm IV X1 PRN; Protocol PRN Reason: Hypoglycemia Dicyclomine HCl (Bentyl) 20 mg PO Q6H PRN PRN PRN Reason: abdominal discomfort Enoxaparin Sodium (Lovenox) 40 mg SC DAILY [facility] Last Admin: 10/15/19 12:08 Dose: 40 mg Documented by: Gabapentin (Neurontin) 300 mg PO DAILY [facility] Last Admin: 10/15/19 12:09 Dose: 300 mg Documented by: Glucagon () 1 mg IM .X1 PRN PRN Reason: Hypoglycemia Guaifenesin (Robitussin) 10 ml PO Q4H PRN PRN PRN Reason: COUGH Hydroxyzine Pamoate (Vistaril Pamoate Capsule) 50 mg PO Q4H PRN PRN PRN Reason: mild anxiety Sodium Chloride () 250 mls @ 15 mls/hr IV .[id number] PRN PRN Reason: Saline Flush Last Admin: 10/15/19 12:00 Dose: 15 mls/hr Documented by: Sodium Chloride () 250 mls @ 15 mls/hr IV .[id number] PRN PRN Reason: Additional IVPB Infusion Ceftriaxone Sodium 2 gm/ (Sodium Chloride) 50 mls @ 100 mls/hr IV Q24@2200 [facility] Last Infusion: 10/15/19 22:45 Dose: Infused Documented by: Insulin Human Lispro (Humalog Kwikpen ([facility])) 0 unit SC Q6 [facility]; Protocol Last Admin: 10/16/19 05:13 Dose: Not Given Documented by: Loperamide HCl (Imodium) 2 mg PO Q4H PRN PRN PRN Reason: LOOSE STOOLS Magnesium Hydroxide (Milk Of Magnesia) 30 ml PO DAILY PRN PRN PRN Reason: Constipation Methylprednisolone (Solu-Medrol) 40 mg IV Q8 [facility] Last Admin: 10/16/19 05:06 Dose: 40 mg Documented by: Metoprolol Tartrate (Lopressor (Beta Agnieszka)) 75 mg PO BID [facility] Last Admin: 10/15/19 22:11 Dose: 75 mg Documented by: Multivitamins/Minerals (Multivitamin With Minerals (Bkc)) 1 tablet PO DAILYCM [facility] Last Admin: 10/15/19 12:09 Dose: 1 tablet Documented by: Nitroglycerin (Nitrostat) 0.4 mg SUBLINGUAL Q5M PRN PRN Reason: CARDIAC/CHEST PAIN Ondansetron HCl (Zofran) 4 mg IV Q8H PRN PRN PRN Reason: NAUSEA/VOMITING Ondansetron HCl (Zofran) 8 mg PO Q8H PRN PRN PRN Reason: NAUSEA Psyllium Hydrophilic Mucilloid (Metamucil) 1 packet PO DAILY PRN PRN PRN Reason: Constipation Ranolazine (Ranexa) 1,000 mg PO DAILY [facility] Last Admin: 10/15/19 12:08 Dose: 1,000 mg Documented by: Senna/Docusate Sodium (Senokot-S, Ami-Colace) 2 tablet PO BID PRN PRN PRN Reason: Constipation Sodium Chloride () 10 - 40 ml IV UD PRN PRN Reason: SALINE FLUSH Last Admin: 10/16/19 05:08 Dose: 20 ml Documented by: Thiamine HCl (Vitamin B1) 100 mg PO BIDCM [facility] Stop: 10/16/19 17:01 Last Admin: 10/15/19 17:10 Dose: 100 mg Documented by: Throat Lozenges (Cepacol Sore Throat Lozenge) 1 lozenge MUCOUS MEM Q2H PRN PRN PRN Reason: SORE THROAT Trazodone HCl (Desyrel) 100 mg PO QHS PRN PRN Reason: INSOMNIA STROKE Vital Signs/Narrative: Vital Signs Temp Pulse Resp BP BP Pulse Ox 10/16/19 08:07 98.3 F 96 19 H 170/87 H 95 10/16/19 08:00 98.3 F 95 18 166/87 H 93 10/16/19 07:23 92 17 93 10/16/19 07:00 91 21 H 171/93 H 92 10/16/19 06:00 98.9 F 89 13 169/88 H 90 Medical Necessity - Tobacco Use Smoking Status: Former smoker Tobacco Use: Non-smoker Assessment/Plan All Active Problems (Last Reviewed 07/15/18 @ 16:45 by April Hyatt) Severe sepsis (Acute) Acute on chronic respiratory failure with hypoxia (Acute) COPD exacerbation (Acute) Bilateral pneumonia (Acute) Suspected 2018 novel coronavirus infection (Acute) Pneumonia of both lower lobes (Acute) Respiratory failure (Acute) Bronchitis (Acute) URI (upper respiratory infection) (Acute) Sinusitis, acute maxillary (Acute) 1. Severe sepsis and acute hypoxic respiratory failure secondary to acute on chronic COPD exacerbation with bilateral pneumonia -Coronavirus test is negative -He is maintaining his oxygen saturations on 4 L nasal cannula -Continue with Rocephin -Blood cultures are negative -Sputum cultures are negative -Urine strep and Legionella antigens are negative -Continue to continue with breathing treatments and steroids 2. CAD status post CABG/HTN/HLD/carotid artery stenosis status post bilateral carotid endarterectomy -Continue with aspirin and Plavix -With his home blood pressure medications, his blood pressure is stable -Continue with statins 3. 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 Anxiety/depression/alcohol abuse/chronic pain syndrome -Stable -Continue Wellbutrin -Continue with CIWA protocol, he did not tolerate the Ativan, can transition to phenobarbital -If he stays off the ventilator, can restart his home narcotic regimen 5. Severe protein calorie malnutrition -Nutrition consultation DVT: Lovenox Inpatient E&M: 08753 Subs Hosp L2
[2019-10-16 09:28] LABS: Differential Comment SCANNED
[2019-10-16] MEDS: Enoxaparin 40 MG/0.4 ML Syringe SC (10:18)
[2019-10-16] MEDS: Gabapentin 300 MG Capsule PO (10:18)
[2019-10-16] MEDS: Metoprolol Tartrate 50 MG Tablet 75 MG PO (10:19)
[2019-10-16] MEDS: Thiamine Hydrochloride 100 MG Tablet PO (10:19)
[2019-10-16] MEDS: Clopidogrel Bisulfate 75 MG Tablet PO (10:19)
[2019-10-16] MEDS: Ranolazine 500 MG Tablet 1000 MG PO (10:19)
[2019-10-16] MEDS: buPROPion (SR) 150 MG Tablet.SA PO (10:22)
[2019-10-16] MEDS: Aspirin 81 MG TAB.CHEW PO (10:22)
[2019-10-16] MEDS: Multivitamins,Ther W-Minerals Tablet 1 TABLET PO (10:23)
[2019-10-16] MEDS: Folic Acid 1 MG Tablet PO (10:23)
[2019-10-16] MEDS: Phenobarbital 32.4 MG Tablet 97.2 MG PO (10:37)
[2019-10-16 11:40] LABS: Bedside Glucose 146 mg/dL (70-110)
[2019-10-16] MEDS: Albuterol 2.5 MG/3 ML VIAL.NEB. INHALATION (14:35)
[2019-10-16 17:10] LABS: Bedside Glucose 146 mg/dL (70-110)
--- NOTE | 2019-10-16 17:28 | CPS ---
pt. saturation dropped to 86% on 50% Venturi. placed pt back on NRB.
--- NOTE | 2019-10-16 20:18 | PCM.HOSP.N ---
Hospitalist Note Patient with increased work of breathing, lethargic. Noted recent sedative withdrawal regimen. Requested hold on any sedative agents. Will obtain ABG, respiratory evaluating also. Pulmonary examination with increased work of breathing, accessory muscle usage, awakens to stimuli and able to answer questions now but was less interactive per staff prior, coarse BL decreased BS, moist, no wheezing. ABG resulted with decreased pO2 but otherwise not severe appearing. Will attempt airway suctioning, coughing, oxygenation and if not effective will transition back to ICU as recent transition out.
--- NOTE | 2019-10-16 20:45 | RAD_ITS ---
STUDY: X-RAY CHEST REASON FOR EXAM: Male, 68 years old. Dyspnea TECHNIQUE: Single AP portable view of the chest. COMPARISON: 12/14/2011, 10/14/2019. FINDINGS: Endotracheal tube has been removed. Nasogastric tube is been removed. Widespread bilateral interstitial and airspace infiltrates are grossly stable and most pronounced in the lower right lung. Findings are probably a combination of interstitial edema and possible multifocal pneumonia. Some underlying fibrosis is also possible. Bilateral small pleural effusions. Moderate cardiomegaly. Tortuous aorta. RAD/Chest 1 View (Portable) IMPRESSION: Continued severe interstitial and airspace infiltrates most pronounced in the lower right lung. Pneumonia is possible in the right lower lung. Small effusions are seen. Electronically Signed: Thaddeus Milton MD at 22:04 EDT , Service support ,
[2019-10-16 20:56] LABS: Base Excess 0 mmol/L (-2 to +2); Bicarbonate 24.5 mmol/L (22-26); PO2 67 mmHG (75-100); SO2 93 % (95-99); Total Carbon Dioxide 26 mmol/L; pCO2 38.6 mmHg (35-45); pH 7.41 (7.35-7.45)
[2019-10-16 20:59] LABS: Blood Gas Specimen Type ART; O2 Delivery Device NRB Mask; SITE L BRACHIAL; Time Given 2010
[2019-10-16 23:10] LABS: Bedside Glucose 173 mg/dL (70-110)
--- NOTE | 2019-10-16 23:49 | CPS ---
pt laying on his right side, spo2 dropped from when pt was on his back
[2019-10-17] VITALS (32 sets, daily range): BP systolic 147–174; BP diastolic 97–110; PULSE 80–128; RESP 12–36; TEMP 36.2–37.2; O2SAT 89–98
[2019-10-17 00:11] LABS: Bedside Glucose 165 mg/dL (70-110)
[2019-10-17] MEDS: 0.9% Saline Lock 10 ML Syringe IV ×6 (05:46→21:15)
[2019-10-17 05:56] LABS: Bedside Glucose 161 mg/dL (70-110)
[2019-10-17] MEDS: Ipratropium/Albuterol Sulfate 3 ML AMPUL.NEB INHALATION ×4 (06:53→19:36)
[2019-10-17 07:34] LABS: Absolute Lymphocyte Count 0.42 X10^3/uL (0.83-4.51); Hematocrit 43.4 % (40-54); Hemoglobin 14.5 g/dL (13.0-16.5); Lymphocyte # 0.42 X10^3/ul (4.0); Lymphocyte % 2.9 % (19-41); Mean Corp Hgb Conc 33.4 g/dL (32-36); Mean Corpuscular Hgb 31.5 pg (27.0-32.0); Mean Corpuscular Volume 94.1 fL (80-94); Mean Platelet Vol. 12.6 fl (6.2-12.0); Monocyte% 6.9 % (0-10); NRBC Flagged by Analyzer 0 % (0-5); Neutrophil # 12.95 X10^3/uL (2.7-7.7); Neutrophil % 89.8 % (47-70); POSITIVE DIFFERENTIAL YES; Platelet Count 116 K/mm3 (150-450); RBC Distribution Width CV 13.2 % (11.6-14.6); RBC Distribution Width SD 45.7 fl (35.1-43.9); Red Blood Count 4.61 M/mm3 (4.6-6.2); White Blood Count 14.4 K/mm3 (4.4-11.0)
[2019-10-17 07:37] LABS: Differential Indicated SCAN CRITERIA MET
[2019-10-17 07:57] LABS: ALB/GLOB Ratio 0.8 RATIO (0.9-2.4); AST(SGOT) 57 U/L (15-37); Alanine Aminotransfer ALT/SGPT 53 U/L (16-61); Alkaline Phosphatase 84 U/L (45-117); Anion Gap 7 (5-15); BUN 30 mg/dL (7-18); BUN/Creat Ratio 46.7 RATIO (10-20); Calcium,Total 8.6 mg/dL (8.5-10.1); Chloride 109 mmol/L (98-107); Creatinine, Serum 0.64 mg/dL (0.70-1.30); EST Glomerular Filtration Rate 131 mL/min (>60); Est Glom Filt Rate - Afr Amer 158 mL/min (>60); Estimated Creatinine Clearance 62.03 ml/min; Globulin 3.7 g/dL (2.2-4.2); Glucose 176 mg/dL (74-106); Potassium 4.4 mmol/L (3.5-5.1); Protein, Total 6.7 g/dL (6.4-8.2); Sodium Level 142 mmol/L (136-145)
[2019-10-17 08:09] LABS: Platelet Estimate SLT DEC (ADEQ); Red Cell Morphology NORM C+C NORMAL (NORM C&C)
--- NOTE | 2019-10-17 08:40 | NURSING ---
Patient was resting comfortably in bed when he without reason became extremely agitated and pulled off his oxygen. Patient confused and didn't know where he was . Alert to self only. Redirection of no value. Patient resistive to care. Continues to pull at oxygen, and other medical supplies. 1:1 without value. Required assistance x3 to get patient to lay back in bed and place oxygen back on. RT and Dr. Rodriguez arrive at bedside. Patient placed in soft restraints per Dr. Rodriguez. Sitter at bedside.
[2019-10-17] MEDS: Furosemide 20 MG/2 ML VIAL IV (08:53)
[2019-10-17] MEDS: Furosemide 40 MG/4 ML Vial IV ×2 (08:57→13:13)
[2019-10-17] MEDS: Haloperidol Lactate 5 MG/ML Vial 1 MG IV ×2 (09:00→09:05)
--- NOTE | 2019-10-17 09:08 | EKG12_ITS ---
Test Reason : Blood Pressure : / mmHG Vent. Rate : 108 BPM Atrial Rate : 108 BPM P-R Int : 130 ms QRS Dur : 116 ms QT Int : 362 ms P-R-T Axes : 039 -24 084 degrees QTc Int : 485 ms Sinus tachycardia with occasional Premature ventricular complexes Left ventricular hypertrophy with QRS widening and repolarization abnormality Abnormal ECG When compared with ECG of 14-OCT-2019 00:54, MANUAL COMPARISON REQUIRED, DATA IS UNCONFIRMED Confirmed by MELLY LUCIO ([id number]), electronic news gathering editor OTILIA LOPEZ ([id number]) on 10/20/2019 10:32:15 AM Referred By: NBAIL Confirmed By:MELLY LUCIO
--- NOTE | 2019-10-17 09:09 | PN_ITS ---
Patient Problems: Active and Suspected Problems (Last Reviewed 07/15/18 @ 16:45 by April Hyatt) Severe sepsis (Acute) Acute on chronic respiratory failure with hypoxia (Acute) COPD exacerbation (Acute) Bilateral pneumonia (Acute) Suspected 2019 novel coronavirus infection (Acute) Pneumonia of both lower lobes (Acute) Respiratory failure (Acute) Reason for Visit: Follow-up on respiratory distress/severe sepsis secondary to pneumonia Subjective: Patient was seen and examined. Overnight, patient had increased oxygen requirements. He was on Bipap but did not tolerate it overnight. Repeat CXR is unchanged, slight worse infiltrates. He is confused and slightly combative in bed Objective: Physical exam: Vitals/I&O's: Vital Signs Temp Pulse Resp BP Pulse Ox 98.8 F 99 16 173/97 H 91 10/17/19 08:12 10/17/19 08:12 10/17/19 08:12 10/17/19 08:12 10/17/19 08:12 Oxygen Flow Rate (L/min) 11 Oxygen Delivery Method Nasal Cannula Weight: 63.8 kg Body Mass Index (BMI) 21.5 Intake and Output for Last 24 Hours 10/15/19 10/16/19 10/17/19 23:59 23:59 23:59 Intake Total 2416.46 / 2416.46 175 / 175 0 / 0 Output Total 1725 / 1725 525 / 525 Balance 691.46 / 691.46 -350 / -350 0 / 0 General: Alert, Confused, - - in mild respiratory distress, on Airvo 60L 80% HEENT: Atraumatic, PERRLA, EOMI, Normocephalic Oral: Moist Mucosa Neck: Supple Lungs: Clear to auscultation, Normal air movement Cardiovascular: Regular rate, Regular Rhythm, Normal S1, Normal S2, No murmurs Abdomen: Bowel Sounds Present, Soft, Non Tender, Non-Distended, No Hepato- splenomegaly Extremities: No edema Skin: No rashes, No breakdown Musculoskeletal: No Tenderness to Palpation of Joints or Extremities Lymphatic: No Cervical, Supraclavicular, or Inguinal Adenopathy Neurological: Cranial nerves II-XII grossly intact, Neuro grossly intact Psych/Mental Status: Normal Affect, Appropriate Microbiology Past 72 Hours 10/14/19 Unknown Sputum, Induced/Lukens Gram Stain - Final 10/14/19 Unknown Sputum, Induced/Lukens Respiratory Culture - Final Strep not Strep pneumo 10/14/19 00:40 Blood Culture (Wb) - Anticubital Left Blood Culture - Preliminary No growth in 48 hours. 10/14/19 00:38 Blood Culture (Wb) - Right Hand Blood Culture - Preliminary No growth in 48 hours. 10/14/19 01:35 Urine, Clean Catch Urine Culture - Final Culture exhibits no growth. 10/14/19 00:38 Mucosa - Throat Group A Streptococcus Rapid Screen - Final 10/14/19 Unknown Urine Catheter - [place] Gram Stain - Final 10/14/19 14:15 Urine Catheter - [place] Streptococcus pneumoniae Antigen (M - Final 10/14/19 14:15 Urine Catheter - [place] Legionella Antigen - Final 10/14/19 00:49 Mucosa - Nose Respiratory Panel (PCR) - Final Laboratory Results 10/16/19 08:05: Differential Comment SCANNED 10/16/19 11:36: POC Glucose 146 H 10/16/19 16:59: POC Glucose 146 H 10/16/19 20:07: Specimen Type ART, Sample Site L BRACHIAL, pH 7.41, Bicarbonate Actual 24.5, POC Total CO2 26, Base Excess 0, O2 Saturation 93 L, ABG pCO2 38.6, ABG pO2 67 L, O2 Delivery Device NRB Mask, Liter Flow 15.0, Blood Gas Notified Whom DAPHNE BORREGO, Blood Gas Notified Time 200910/16/19 21:58: POC Glucose 173 H 10/17/19 00:02: POC Glucose 165 H 10/17/19 05:41: POC Glucose 161 H 10/17/19 07:20: WBC 14.4 H, RBC 4.61, Hgb 14.5, Hct 43.4, MCV 94.1 H, MCH 31.5, MCHC 33.4, RDW Std Deviation 45.7 H, RDW Coeff of Xenia 13.2, Plt Count 116 L, MPV 12.6 H, Immature Gran % (Auto) 0.400, Neut % (Auto) 89.8 H, Lymph % (Auto) 2.9 L , [place] % (Auto) 6.9, Eos % (Auto) 0.0, Baso % (Auto) 0.0, Absolute Neuts (auto) 13.0 H, Absolute Lymphs (auto) 0.42 L, Nucleated RBC % 0, Differential Comment , Platelet Estimate SLT DEC, RBC Morphology NORM C+C 10/17/19 07:20: Sodium 142, Potassium 4.4, Chloride 109 H, Carbon Dioxide 26.0, Anion Gap 7, BUN 30 H, Creatinine 0.64 L, Estim Creat Clear Calc 62.03, Est GFR (MDRD) Af Amer 158, Est GFR (MDRD) Non-Af 131, BUN/Creatinine Ratio 46.7 H, Glucose 176 H, Calcium 8.6, Total Bilirubin 0.50, AST 57 H, ALT 53, Alkaline Phosphatase 84, Total Protein 6.7, Albumin 3.0 L, Globulin 3.7, Albumin/Globulin Ratio 0.8 L Current Medications Acetaminophen (Tylenol) 650 mg PO Q6H PRN PRN PRN Reason: Pain Score 1-10/Temp > 100.7 F Al Hydroxide/Mg Hydroxide (Mylanta Ii) 30 ml PO Q6H PRN PRN PRN Reason: Gastric Burning Albuterol Sulfate (Ventolin Aerosols) 2.5 mg INHALATION Q2H PRN PRN PRN Reason: Dyspnea, wheezing Last Admin: 10/16/19 14:35 Dose: 2.5 mg Documented by: Albuterol/Ipratropium (Duoneb) 3 ml INHALATION Q4HWA.RT [facility] Last Admin: 10/17/19 06:53 Dose: 3 ml Documented by: Aspirin (Aspirin, Baby) 81 mg PO DAILY [facility] Last Admin: 10/16/19 10:22 Dose: 81 mg Documented by: Atorvastatin Calcium (Lipitor) 10 mg GT QHS [facility] Last Admin: 10/16/19 22:00 Dose: Not Given Documented by: Bupropion HCl (Wellbutrin Sr (150mg Tablets)) 150 mg PO DAILY [facility] Last Admin: 10/16/19 10:22 Dose: 150 mg Documented by: Clopidogrel Bisulfate (Plavix) 75 mg PO DAILY [facility] Last Admin: 10/16/19 10:19 Dose: 75 mg Documented by: Dextrose (D50w Syringe) 0 gm IV X1 PRN; Protocol PRN Reason: Hypoglycemia Dicyclomine HCl (Bentyl) 20 mg PO Q6H PRN PRN PRN Reason: abdominal discomfort Enoxaparin Sodium (Lovenox) 40 mg SC DAILY [facility] Last Admin: 10/16/19 10:18 Dose: 40 mg Documented by: Gabapentin (Neurontin) 300 mg PO DAILY [facility] Last Admin: 10/16/19 10:18 Dose: 300 mg Documented by: Glucagon () 1 mg IM .X1 PRN PRN Reason: Hypoglycemia Guaifenesin (Robitussin) 10 ml PO Q4H PRN PRN PRN Reason: COUGH Hydroxyzine Pamoate (Vistaril Pamoate Capsule) 50 mg PO Q4H PRN PRN PRN Reason: mild anxiety Sodium Chloride () 250 mls @ 15 mls/hr IV .[id number] PRN PRN Reason: Saline Flush Last Admin: 10/15/19 12:00 Dose: 15 mls/hr Documented by: Sodium Chloride () 250 mls @ 15 mls/hr IV .[id number] PRN PRN Reason: Additional IVPB Infusion Ceftriaxone Sodium 2 gm/ (Sodium Chloride) 50 mls @ 100 mls/hr IV Q24@2200 [facility] Last Infusion: 10/16/19 23:28 Dose: Infused Documented by: Insulin Human Lispro (Humalog Sergepen (Bkc)) 0 unit SC Q6 [facility]; Protocol Last Admin: 10/17/19 05:46 Dose: Not Given Documented by: Loperamide HCl (Imodium) 2 mg PO Q4H PRN PRN PRN Reason: LOOSE STOOLS Lorazepam (Ativan) 1 mg IV Q4H PRN PRN PRN Reason: ANXIETY Magnesium Hydroxide (Milk Of Magnesia) 30 ml PO DAILY PRN PRN PRN Reason: Constipation Methylprednisolone (Solu-Medrol) 40 mg IV Q8 [facility] Last Admin: 10/17/19 05:46 Dose: 40 mg Documented by: Metoprolol Tartrate (Lopressor (Beta Agnieszka)) 75 mg PO BID [facility] Last Admin: 10/16/19 22:00 Dose: Not Given Documented by: Multivitamins/Minerals (Multivitamin With Minerals (Bkc)) 1 tablet PO DAILYCM [facility] Last Admin: 10/16/19 10:23 Dose: 1 tablet Documented by: Nitroglycerin (Nitrostat) 0.4 mg SUBLINGUAL Q5M PRN PRN Reason: CARDIAC/CHEST PAIN Psyllium Hydrophilic Mucilloid (Metamucil) 1 packet PO DAILY PRN PRN PRN Reason: Constipation Ranolazine (Ranexa) 1,000 mg PO DAILY [facility] Last Admin: 10/16/19 10:19 Dose: 1,000 mg Documented by: Senna/Docusate Sodium (Senokot-S, Ami-Colace) 2 tablet PO BID PRN PRN PRN Reason: Constipation Sodium Chloride () 10 - 40 ml IV UD PRN PRN Reason: SALINE FLUSH Last Admin: 10/17/19 05:46 Dose: 20 ml Documented by: Throat Lozenges (Cepacol Sore Throat Lozenge) 1 lozenge MUCOUS MEM Q2H PRN PRN PRN Reason: SORE THROAT Trazodone HCl (Desyrel) 100 mg PO QHS PRN PRN Reason: INSOMNIA STROKE Vital Signs/Narrative: Vital Signs Temp Pulse Resp BP Pulse Ox 10/17/19 08:12 98.8 F 99 16 173/97 H 91 10/17/19 07:08 102 H 10/17/19 06:56 98 20 H 92 10/17/19 06:53 100 20 H 10/17/19 06:40 90 Medical Necessity - Tobacco Use Smoking Status: Former smoker Tobacco Use: Non-smoker Assessment/Plan All Active Problems (Last Reviewed 07/15/18 @ 16:45 by April Hyatt) Severe sepsis (Acute) Acute on chronic respiratory failure with hypoxia (Acute) COPD exacerbation (Acute) Bilateral pneumonia (Acute) Suspected 2019 novel coronavirus infection (Acute) Pneumonia of both lower lobes (Acute) Respiratory failure (Acute) Bronchitis (Acute) URI (upper respiratory infection) (Acute) Sinusitis, acute maxillary (Acute) 1. Acute delirium, unclear etiology, likely secondary to opioid withdrawal Discussed patient's history with the ; denied excessive alcohol use, drinks 1 beer every day Unlikely to be alcohol withdrawal. Patient's points out that patient is on chronic pain meds Given Haldol IV 2mg milligrams x1, QTc 485 Will start on morphine IV 1 mg every 4h with holding parameters for lethargy Put on bilateral soft wrists today. 2. Acute hypoxic respiratory failure, status post extubation 2 days ago Patient remains hypoxic on arrival, refused BiPAP ABG today is consistent with hypoxia; pH is normal We will continue on Airvo, will continue to offer BiPAP nightly 3. Severe sepsis secondary to bilateral pneumonia, persistent Suspect a component of aspiration pneumonia We will switch from ceftriaxone to Zosyn Speech therapy has been consulted 4. Hypertension, uncontrolled, on home metoprolol, Switch to IV metoprolol every 6h Will switch back to metoprolol as patient is more improved 5. CAD status post CABG/hyperlipidemia/carotid artery stenosis/renal artery pseudoaneurysm/history of brain aneurysm On aspirin, Plavix, beta-agnieszka 6. Anxiety/depression/chronic pain syndrome, on IV morphine now Home antidepressants on hold 7. DVT PPx- Lovenox SC 8. Code status - Full code Inpatient E&M: [id number] Subs Hosp L3
--- NOTE | 2019-10-17 09:15 | NURSING ---
RN called and updated patient's on overnight and this am events. Patient's voices concern of possible opiate withdrawal as patient has been on narcotics for several years due to chronic pain. RN informed patient's that she would speak with Dr. Rodriguez regarding same.
--- NOTE | 2019-10-17 09:30 | NURSING ---
Patient with periods of agitation where he attempts to pull at medical equipment. Sitter remains at bedside. 1:1 of some effect.
[2019-10-17 09:40] LABS: Base Excess 0 mmol/L (-2 to +2); Bicarbonate 23.5 mmol/L (22-26); PO2 49 mmHG (75-100); SO2 87 % (95-99); Total Carbon Dioxide 25 mmol/L; pCO2 33.4 mmHg (35-45); pH 7.46 (7.35-7.45)
[2019-10-17 09:42] LABS: Blood Gas Specimen Type ART; SITE R RADIAL
[2019-10-17 09:43] LABS: FI02 80; Mode Airvo
[2019-10-17 09:44] LABS: Time Given 924
[2019-10-17 10:08] LABS: Hemoglobin A1c 5.2 % (4.2-6.3)
[2019-10-17] MEDS: Morphine 2 MG/ML Syringe 1 MG IV ×4 (11:11→21:07)
[2019-10-17] MEDS: Metoprolol Tartrate 5 MG/5 ML Vial IV ×2 (11:11→17:39)
[2019-10-17 12:20] LABS: Bedside Glucose 193 mg/dL (70-110)
--- NOTE | 2019-10-17 13:00 | NURSING ---
Placed back in soft restraints.
[2019-10-17] MEDS: Enoxaparin 40 MG/0.4 ML Syringe SC (13:12)
--- NOTE | 2019-10-17 14:50 | PN_ITS ---
Patient Problems: Active and Suspected Problems (Last Reviewed 07/15/18 @ 16:45 by April Hyatt) Severe sepsis (Acute) Acute on chronic respiratory failure with hypoxia (Acute) COPD exacerbation (Acute) Bilateral pneumonia (Acute) Suspected 2018 novel coronavirus infection (Acute) Pneumonia of both lower lobes (Acute) Respiratory failure (Acute) Subjective: With difficulties over the evening. Patient reportedly has become more confused and hypoxic. Patient had a chest x-ray overnight that showed some worsening. Patient has not been taking much by mouth per sitter at the bedside. - Physical Exam Vitals/I&O's: Vital Signs Temp Pulse Resp BP Pulse Ox 36.2 C L 117 H 20 H 174/110 H 91 10/17/19 11:15 10/17/19 13:31 10/17/19 13:31 10/17/19 11:15 10/17/19 13:31 Oxygen Flow Rate (L/min) 11 Oxygen Delivery Method Nasal Cannula Weight: 63.8 kg Body Mass Index (BMI) 21.5 Intake and Output for Last 24 Hours 10/15/19 10/16/19 10/17/19 23:59 23:59 23:59 Intake Total 2416.46 / 2416.46 175 / 175 0 / 0 Output Total 1725 / 1725 525 / 525 Balance 691.46 / 691.46 -350 / -350 0 / 0 General: Alert, Confused, Disoriented, - - Mild conversational dyspnea. Limited evaluation secondary to mental status. HEENT: Atraumatic, PERRLA, EOMI, Normocephalic, - - Scleral injection. Oral: Moist Mucosa, No Gingival or Mucosal Lesions/ Ulcerations Neck: Supple, No Nodes, Trachea Midline, JVD, Right Lungs: No rhonchi, No wheeze, Diminished - Bilaterally, - - Dullness to percussion, right greater than left Cardiovascular: Regular rate, Regular Rhythm, Normal S1, Normal S2, No murmurs, No rub noted, No Gallop Abdomen: Bowel Sounds Present, Soft, Non Tender, Non-Distended Extremities: No clubbing, No cyanosis, No edema, Capillary Refill Less than 3 Seconds Skin: No rashes, No breakdown Musculoskeletal: No Tenderness to Palpation of Joints or Extremities Lymphatic: No Cervical, Supraclavicular, or Inguinal Adenopathy Neurological: Neuro grossly intact Psych/Mental Status: Impulsive, Restless Microbiology Past 72 Hours 10/14/19 Unknown Sputum, Induced/Lukens Gram Stain - Final 10/14/19 Unknown Sputum, Induced/Lukens Respiratory Culture - Final Strep not Strep pneumo 10/14/19 00:40 Blood Culture (Wb) - Anticubital Left Blood Culture - Prel iminary No growth in 48 hours. 10/14/19 00:38 Blood Culture (Wb) - Right Hand Blood Culture - Preliminary No growth in 48 hours. 10/14/19 01:35 Urine, Clean Catch Urine Culture - Final Culture exhibits no growth. 10/14/19 00:38 Mucosa - Throat Group A Streptococcus Rapid Screen - Final 10/14/19 Unknown Urine Catheter - Moreira Gram Stain - Final 10/14/19 14:15 Urine Catheter - Moreira Streptococcus pneumoniae Antigen (M - Final 10/14/19 14:15 Urine Catheter - Moreira Legionella Antigen - Final Laboratory Results 10/16/19 16:59: POC Glucose 146 H 10/16/19 20:07: Specimen Type ART, Sample Site L BRACHIAL, pH 7.41, Bicarbonate Actual 24.5, POC Total CO2 26, Base Excess 0, O2 Saturation 93 L, ABG pCO2 38.6, ABG pO2 67 L, O2 Delivery Device NRB Mask, Liter Flow 15.0, Blood Gas Notified Whom DAPHNE BORREGO, Blood Gas Notified Time 200910/16/19 21:58: POC Glucose 173 H 10/17/19 00:02: POC Glucose 165 H 10/17/19 05:41: POC Glucose 161 H 10/17/19 07:20: WBC 14.4 H, RBC 4.61, Hgb 14.5, Hct 43.4, MCV 94.1 H, MCH 31.5, MCHC 33.4, RDW Std Deviation 45.7 H, RDW Coeff of Xenia 13.2, Plt Count 116 L, MPV 12.6 H, Immature Gran % (Auto) 0.400, Neut % (Auto) 89.8 H, Lymph % (Auto) 2.9 L , [place] % (Auto) 6.9, Eos % (Auto) 0.0, Baso % (Auto) 0.0, Absolute Neuts (auto) 13.0 H, Absolute Lymphs (auto) 0.42 L, Nucleated RBC % 0, Differential Comment , Platelet Estimate SLT DEC, RBC Morphology NORM C+C 10/17/19 07:20: Sodium 142, Potassium 4.4, Chloride 109 H, Carbon Dioxide 26.0, Anion Gap 7, BUN 30 H, Creatinine 0.64 L, Estim Creat Clear Calc 62.03, Est GFR (MDRD) Af Amer 158, Est GFR (MDRD) Non-Af 131, BUN/Creatinine Ratio 46.7 H, Glucose 176 H, Calcium 8.6, Total Bilirubin 0.50, AST 57 H, ALT 53, Alkaline Phosphatase 84, Total Protein 6.7, Albumin 3.0 L, Globulin 3.7, Albumin/Globulin Ratio 0.8 L 10/17/19 07:20: Hemoglobin A1c 5.2 10/17/19 09:24: Specimen Type ART, Sample Site R RADIAL, pH 7.46 H, Bicarbonate Actual 23.5, POC Total CO2 25, Base Excess 0, O2 Saturation 87 L, O2 % 80, ABG pCO2 33.4 L, ABG pO2 49 L, Sha Test NA, Liter Flow 60.0, Vent Mode Airvo, Blood Gas Notified Whom [facility] , Blood Gas Notified Time 924 10/17/19 12:09: POC Glucose 193 H Current Medications Acetaminophen (Tylenol) 650 mg PO Q6H PRN PRN PRN Reason: Pain Score 1-10/Temp > 100.7 F Al Hydroxide/Mg Hydroxide (Mylanta Ii) 30 ml PO Q6H PRN PRN PRN Reason: Gastric Burning Albuterol Sulfate (Ventolin Aerosols) 2.5 mg INHALATION Q2H PRN PRN PRN Reason: Dyspnea, wheezing Last Admin: 10/16/19 14:35 Dose: 2.5 mg Documented by: Albuterol/Ipratropium (Duoneb) 3 ml INHALATION Q4HWA.RT [facility] Last Admin: 10/17/19 10:35 Dose: 3 ml Documented by: Aspirin (Aspirin, Baby) 81 mg PO DAILY [facility] Last Admin: 10/17/19 12:04 Dose: Not Given Documented by: Atorvastatin Calcium (Lipitor) 10 mg GT QHS [facility] Last Admin: 10/16/19 22:00 Dose: Not Given Documented by: Bupropion HCl (Wellbutrin Sr (150mg Tablets)) 150 mg PO DAILY [facility] Last Admin: 10/17/19 12:04 Dose: Not Given Documented by: Clopidogrel Bisulfate (Plavix) 75 mg PO DAILY [facility] Last Admin: 10/17/19 12:04 Dose: Not Given Documented by: Dextrose (D50w Syringe) 0 gm IV X1 PRN; Protocol PRN Reason: Hypoglycemia Dicyclomine HCl (Bentyl) 20 mg PO Q6H PRN PRN PRN Reason: abdominal discomfort Enoxaparin Sodium (Lovenox) 40 mg SC DAILY [facility] Last Admin: 10/17/19 13:12 Dose: 40 mg Documented by: Gabapentin (Neurontin) 300 mg PO DAILY [facility] Last Admin: 10/17/19 12:04 Dose: Not Given Documented by: Glucagon () 1 mg IM .X1 PRN PRN Reason: Hypoglycemia Guaifenesin (Robitussin) 10 ml PO Q4H PRN PRN PRN Reason: COUGH Hydroxyzine Pamoate (Vistaril Pamoate Capsule) 50 mg PO Q4H PRN PRN PRN Reason: mild anxiety Sodium Chloride () 250 mls @ 15 mls/hr IV .[id number] PRN PRN Reason: Saline Flush Last Admin: 10/15/19 12:00 Dose: 15 mls/hr Documented by: Sodium Chloride () 250 mls @ 15 mls/hr IV .[id number] PRN PRN Reason: Additional IVPB Infusion Ceftriaxone Sodium 2 gm/ (Sodium Chloride) 50 mls @ 100 mls/hr IV Q24@2200 [facility] Last Infusion: 10/16/19 23:28 Dose: Infused Documented by: Insulin Human Lispro (Humalog Sergepen (Bkc)) 0 unit SC Q6 [facility]; Protocol Last Admin: 10/17/19 12:10 Dose: Not Given Documented by: Loperamide HCl (Imodium) 2 mg PO Q4H PRN PRN PRN Reason: LOOSE STOOLS Lorazepam (Ativan) 1 mg IV Q4H PRN PRN PRN Reason: ANXIETY Magnesium Hydroxide (Milk Of Magnesia) 30 ml PO DAILY PRN PRN PRN Reason: Constipation Methylprednisolone (Solu-Medrol) 40 mg IV Q8 [facility] Last Admin: 10/17/19 13:14 Dose: 40 mg Documented by: Metoprolol Tartrate (Lopressor (Beta Agnieszka)) 5 mg IV Q6 [facility] Last Admin: 10/17/19 12:03 Dose: Not Given Documented by: Morphine Sulfate () 1 mg IV Q4H PRN PRN PRN Reason: Pain Score 6-10/10 Last Admin: 10/17/19 13:15 Dose: 1 mg Documented by: Multivitamins/Minerals (Multivitamin With Minerals (Bkc)) 1 tablet PO DAILYCM [facility] Last Admin: 10/17/19 12:01 Dose: Not Given Documented by: Nitroglycerin (Nitrostat) 0.4 mg SUBLINGUAL Q5M PRN PRN Reason: CARDIAC/CHEST PAIN Psyllium Hydrophilic Mucilloid (Metamucil) 1 packet PO DAILY PRN PRN PRN Reason: Constipation Ranolazine (Ranexa) 1,000 mg PO DAILY [facility] Last Admin: 10/17/19 12:04 Dose: Not Given Documented by: Senna/Docusate Sodium (Senokot-S, Ami-Colace) 2 tablet PO BID PRN PRN PRN Reason: Constipation Sodium Chloride () 10 - 40 ml IV UD PRN PRN Reason: SALINE FLUSH Last Admin: 10/17/19 13:16 Dose: 20 ml Documented by: Throat Lozenges (Cepacol Sore Throat Lozenge) 1 lozenge MUCOUS MEM Q2H PRN PRN PRN Reason: SORE THROAT Trazodone HCl (Desyrel) 100 mg PO QHS PRN PRN Reason: INSOMNIA Clinical Impression(s) from Imaging Studies Chest X-Ray 10/16/19 20:45 IMPRESSION: Continued severe interstitial and airspace infiltrates most pronounced in the lower right lung. Pneumonia is possible in the right lower lung. Small effusions are seen. Electronically Signed: Thaddeus Milton MD at 22:04 EDT , Service support , Medical Necessity - Tobacco Use Smoking Status: Former smoker Tobacco Use: Non-smoker Assessment/Plan All Active Problems (Last Reviewed 07/15/18 @ 16:45 by April Hyatt) Severe sepsis (Acute) Acute on chronic respiratory failure with hypoxia (Acute) COPD exacerbation (Acute) Bilateral pneumonia (Acute) Suspected 2018 novel coronavirus infection (Acute) Pneumonia of both lower lobes (Acute) Respiratory failure (Acute) Bronchitis (Acute) URI (upper respiratory infection) (Acute) Sinusitis, acute maxillary (Acute) RECOMMENDATIONS: 1. Continue to wean supplemental oxygen to maintain saturations at or above 90%. 2. Defer medical management of possible alcohol withdrawal to hospitalist. 3. Continue bronchodilators and IV steroids. 4. Encourage incentive spirometer use and mobilize patient as tolerated. 5. Continue empiric antimicrobials per infectious diseases recommendations. 6. Given marginal respiratory status, reasonable to attempt a right-sided thoracentesis IMPRESSIONS: 1. Acute hypoxemic respiratory failure Likely secondary to COPD with exacerbation precipitated by bilateral lower lobe pneumonia. COVID testing was negative. The patient improved with supportive measures including invasive mechanical ventilatory support, antimicrobials, bronchodilators and steroids. He was able to be extubated on the morning of October 14. Patient has received some diuretic therapy today. CT scan on presentation did show bilateral pleural effusions and given refusal of BiPAP therapy with decline throughout the last 24 hours, it is reasonable to proceed with a thoracentesis to see if this would help with respiratory status. High clinical suspicion for parapneumonic effusion, so will obtain labs. 2. Severe sepsis Improved. Appears to be secondary to underlying pulmonary infectious process. Continue current supportive measures and antimicrobials as noted above. 3. Coronary artery disease status post CABG Continue outpatient cardiac medication regimen. 4. Chronic alcohol dependency/chronic pain syndrome/anxiety/ depression/hypertension/hyperlipidemia Complicates care, management, recovery and prognosis. Continue home medications as indicated. Inpatient E&M: [id number] [facility] L3
--- NOTE | 2019-10-17 15:10 | PN.ID_ITS ---
Patient Problems: Active and Suspected Problems (Last Reviewed 07/15/18 @ 16:45 by April Hyatt) Severe sepsis (Acute) Acute on chronic respiratory failure with hypoxia (Acute) COPD exacerbation (Acute) Bilateral pneumonia (Acute) Suspected 2019 novel coronavirus infection (Acute) Pneumonia of both lower lobes (Acute) Respiratory failure (Acute) Subjective: No fever, ongoing issues with lethargy, not cooperating. - Physical Exam Vitals/I&O's: Vital Signs Temp Pulse Resp BP Pulse Ox 97.1 F L 117 H 20 H 174/110 H 91 10/17/19 11:15 10/17/19 13:31 10/17/19 13:31 10/17/19 11:15 10/17/19 13:31 Oxygen Flow Rate (L/min) 11 Oxygen Delivery Method Nasal Cannula Weight: 63.8 kg Body Mass Index (BMI) 21.5 Intake and Output for Last 24 Hours 10/15/19 10/16/19 10/17/19 23:59 23:59 23:59 Intake Total 2416.46 / 2416.46 175 / 175 0 / 0 Output Total 1725 / 1725 525 / 525 Balance 691.46 / 691.46 -350 / -350 0 / 0 General: Lethargic, Non-Cooperative Lungs: Rales Cardiovascular: Tachycardic Abdomen: Soft, Non Tender, Non-Distended Skin: No rashes Microbiology Past 72 Hours 10/14/19 Unknown Sputum, Induced/Lukens Gram Stain - Final 10/14/19 Unknown Sputum, Induced/Lukens Respiratory Culture - Final Strep not Strep pneumo 10/14/19 00:40 Blood Culture (Wb) - Anticubital Left Blood Culture - Preliminary No growth in 48 hours. 10/14/19 00:38 Blood Culture (Wb) - Right Hand Blood Culture - Preliminary No growth in 48 hours. 10/14/19 01:35 Urine, Clean Catch Urine Culture - Final Culture exhibits no growth. 10/14/19 00:38 Mucosa - Throat Group A Streptococcus Rapid Screen - Final 10/14/19 Unknown Urine Catheter - Moreira Gram Stain - Final 10/14/19 14:15 Urine Catheter - Moreira Streptococcus pneumoniae Antigen (M - Final 10/14/19 14:15 Urine Catheter - Moreira Legionella Antigen - Final Laboratory Results 10/16/19 16:59: POC Glucose 146 H 10/16/19 20:07: Specimen Type ART, Sample Site L BRACHIAL, pH 7.41, Bicarbonate Actual 24.5, POC Total CO2 26, Base Excess 0, O2 Saturation 93 L, ABG pCO2 38.6, ABG pO2 67 L, O2 Delivery Device NRB Mask, Liter Flow 15.0, Blood Gas Notified Whom DAPHNE BORREGO, Blood Gas Notified Time 200910/16/19 21:58: POC Glucose 173 H 10/17/19 00:02: POC Glucose 165 H 10/17/19 05:41: POC Glucose 161 H 10/17/19 07:20: WBC 14.4 H, RBC 4.61, Hgb 14.5, Hct 43.4, MCV 94.1 H, MCH 31.5, MCHC 33.4, RDW Std Deviation 45.7 H, RDW Coeff of Xenia 13.2, Plt Count 116 L, MPV 12.6 H, Immature Gran % (Auto) 0.400, Neut % (Auto) 89.8 H, Lymph % (Auto) 2.9 L , [place] % (Auto) 6.9, Eos % (Auto) 0.0, Baso % (Auto) 0.0, Absolute Neuts (auto) 13.0 H, Absolute Lymphs (auto) 0.42 L, Nucleated RBC % 0, Differential Comment , Platelet Estimate SLT DEC, RBC Morphology NORM C+C 10/17/19 07:20: Sodium 142, Potassium 4.4, Chloride 109 H, Carbon Dioxide 26.0, Anion Gap 7, BUN 30 H, Creatinine 0.64 L, Estim Creat Clear Calc 62.03, Est GFR (MDRD) Af Amer 158, Est GFR (MDRD) Non-Af 131, BUN/Creatinine Ratio 46.7 H, Glucose 176 H, Calcium 8.6, Total Bilirubin 0.50, AST 57 H, ALT 53, Alkaline Phosphatase 84, Total Protein 6.7, Albumin 3.0 L, Globulin 3.7, Albumin/Globulin Ratio 0.8 L 10/17/19 07:20: Hemoglobin A1c 5.2 10/17/19 09:24: Specimen Type ART, Sample Site R RADIAL, pH 7.46 H, Bicarbonate Actual 23.5, POC Total CO2 25, Base Excess 0, O2 Saturation 87 L, O2 % 80, ABG pCO2 33.4 L, ABG pO2 49 L, Sha Test NA, Liter Flow 60.0, Vent Mode Airvo, Blood Gas Notified Whom [facility] , Blood Gas Notified Time 924 10/17/19 12:09: POC Glucose 193 H Current Medications Acetaminophen (Tylenol) 650 mg PO Q6H PRN PRN PRN Reason: Pain Score 1-10/Temp > 100.7 F Al Hydroxide/Mg Hydroxide (Mylanta Ii) 30 ml PO Q6H PRN PRN PRN Reason: Gastric Burning Albuterol Sulfate (Ventolin Aerosols) 2.5 mg INHALATION Q2H PRN PRN PRN Reason: Dyspnea, wheezing Last Admin: 10/16/19 14:35 Dose: 2.5 mg Documented by: Albuterol/Ipratropium (Duoneb) 3 ml INHALATION Q4HWA.RT [facility] Last Admin: 10/17/19 10:35 Dose: 3 ml Documented by: Aspirin (Aspirin, Baby) 81 mg PO DAILY [facility] Last Admin: 10/17/19 12:04 Dose: Not Given Documented by: Atorvastatin Calcium (Lipitor) 10 mg GT QHS [facility] Last Admin: 10/16/19 22:00 Dose: Not Given Documented by: Bupropion HCl (Wellbutrin Sr (150mg Tablets)) 150 mg PO DAILY [facility] Last Admin: 10/17/19 12:04 Dose: Not Given Documented by: Clopidogrel Bisulfate (Plavix) 75 mg PO DAILY [facility] Last Admin: 10/17/19 12:04 Dose: Not Given Documented by: Dextrose (D50w Syringe) 0 gm IV X1 PRN; Protocol PRN Reason: Hypoglycemia Dicyclomine HCl (Bentyl) 20 mg PO Q6H PRN PRN PRN Reason: abdominal discomfort Enoxaparin Sodium (Lovenox) 40 mg SC DAILY [facility] Last Admin: 10/17/19 13:12 Dose: 40 mg Documented by: Gabapentin (Neurontin) 300 mg PO DAILY [facility] Last Admin: 10/17/19 12:04 Dose: Not Given Documented by: Glucagon () 1 mg IM .X1 PRN PRN Reason: Hypoglycemia Guaifenesin (Robitussin) 10 ml PO Q4H PRN PRN PRN Reason: COUGH Hydralazine HCl (Apresoline Iv) 10 mg IV Q6H PRN PRN PRN Reason: BLOOD PRESSURE Hydroxyzine Pamoate (Vistaril Pamoate Capsule) 50 mg PO Q4H PRN PRN PRN Reason: mild anxiety Sodium Chloride () 250 mls @ 15 mls/hr IV .[id number] PRN PRN Reason: Saline Flush Last Admin: 10/15/19 12:00 Dose: 15 mls/hr Documented by: Sodium Chloride () 250 mls @ 15 mls/hr IV .[id number] PRN PRN Reason: Additional IVPB Infusion Piperacillin Sod/Tazobactam (Sod 3.375 gm/ Sodium Chloride) 50 mls @ 12.5 mls/hr IV Q8 [facility] Insulin Human Lispro (Humalog Kwikpen (c)) 0 unit SC Q6 [facility]; Protocol Last Admin: 10/17/19 12:10 Dose: Not Given Documented by: Loperamide HCl (Imodium) 2 mg PO Q4H PRN PRN PRN Reason: LOOSE STOOLS Lorazepam (Ativan) 1 mg IV Q4H PRN PRN PRN Reason: ANXIETY Magnesium Hydroxide (Milk Of Magnesia) 30 ml PO DAILY PRN PRN PRN Reason: Constipation Methylprednisolone (Solu-Medrol) 40 mg IV Q8 [facility] Last Admin: 10/17/19 13:14 Dose: 40 mg Documented by: Metoprolol Tartrate (Lopressor (Beta Agnieszka)) 5 mg IV Q6 [facility] Last Admin: 10/17/19 12:03 Dose: Not Given Documented by: Morphine Sulfate () 1 mg IV Q4H PRN PRN PRN Reason: Pain Score 6-10/10 Last Admin: 10/17/19 13:15 Dose: 1 mg Documented by: Multivitamins/Minerals (Multivitamin With Minerals (Bkc)) 1 tablet PO DAILYCM [facility] Last Admin: 10/17/19 12:01 Dose: Not Given Documented by: Nitroglycerin (Nitrostat) 0.4 mg SUBLINGUAL Q5M PRN PRN Reason: CARDIAC/CHEST PAIN Psyllium Hydrophilic Mucilloid (Metamucil) 1 packet PO DAILY PRN PRN PRN Reason: Constipation Ranolazine (Ranexa) 1,000 mg PO DAILY [facility] Last Admin: 10/17/19 12:04 Dose: Not Given Documented by: Senna/Docusate Sodium (Senokot-S, Ami-Colace) 2 tablet PO BID PRN PRN PRN Reason: Constipation Sodium Chloride () 10 - 40 ml IV UD PRN PRN Reason: SALINE FLUSH Last Admin: 10/17/19 13:16 Dose: 20 ml Documented by: Throat Lozenges (Cepacol Sore Throat Lozenge) 1 lozenge MUCOUS MEM Q2H PRN PRN PRN Reason: SORE THROAT Trazodone HCl (Desyrel) 100 mg PO QHS PRN PRN Reason: INSOMNIA Medical Necessity - Tobacco Use Smoking Status: Former smoker Tobacco Use: Non-smoker Route of nutrition/ use of supplements: [] Nutritional Intake: [] IV Site: [] Moreira Catheter: [] - Assessment/Plan Antibiotics: [] Assessment/Plan: [] Active and Suspected Problems (Last Reviewed 07/15/18 @ 16:45 by April Hyatt) Severe sepsis (Acute) Acute on chronic respiratory failure with hypoxia (Acute) COPD exacerbation (Acute) Bilateral pneumonia (Acute) Suspected 2018 novel coronavirus infection (Acute) Pneumonia of both lower lobes (Acute) Respiratory failure (Acute) Subjective fever at home, reported chest pain, hypoxia, cough. COVID neg. Cont ceftriaxone. Will follow, d/w Dr. Ledesma
--- NOTE | 2019-10-17 16:22 | NURSING ---
phones and is given update.
[2019-10-17] MEDS: hydrALAZINE 20 MG/ML Vial 10 MG IV (16:27)
[2019-10-17 18:31] LABS: Bedside Glucose 178 mg/dL (70-110)
[2019-10-18] VITALS (42 sets, daily range): BP systolic 126–175; BP diastolic 88–107; PULSE 106–126; RESP 12–35; TEMP 36.4–37.7; O2SAT 89–100
--- NOTE | 2019-10-18 | FLU_PTH ---
PATIENT: MIHAI LAURENT II LOC: [facility] U#:[id number] AGE/SX: 69/M ROOM: [facility] RE10/14/[address]: Dr. Kevin Klein MD : [id number] BED: 1 DIS: 10/28/2019 SPEC #: [id number] RECD: 10/19/19 11:08 STATUS: SABA REOtoniel #: [id number] KAYLENE: 10/18/19 00:[address]: Lili Rodriguez DEPT: CYTOLOGY RECD BY: Louis Kent ENTERED: 10/19/19 11:08 SP TYPE: Fluid OTHR DR: MD Dr. Matthew Linton DO Dr. Robert Leininger, MD Tissues: THORACIC FLUID Procedures: Special Stain Group II Surgery Specimen Level IV Cytospin Fluid HEADER OPERATION: Ultrasound-guided thoracentesis PRE-OP DIAGNOSIS: Left pleural effusion TISSUE SUBMITTED: Thoracentesis fluid for cytology DIAGNOSIS CYTOLOGY Thoracentesis fluid for cytology (cytospin and cell block): Negative for malignant cells. AM:raymundo 10/20/19 CYTOLOGY STUDY Slides are reviewed. CYTOLOGY GROSS Received is 500 ml of yellow, cloudy fluid labeled with the patient's name and and designated per the requisition as thoracentesis. Submitted for cytology preparation including cell block. / raymundo 10/19/19 TC:5 CPT: 82857, 93067
[2019-10-18] MEDS: Metoprolol Tartrate 5 MG/5 ML Vial IV ×3 (00:05→12:02)
[2019-10-18] MEDS: 0.9% Saline Lock 10 ML Syringe IV ×6 (00:07→23:18)
[2019-10-18 00:16] LABS: Bedside Glucose 169 mg/dL (70-110)
[2019-10-18] MEDS: Morphine 2 MG/ML Syringe 1 MG IV ×5 (02:05→22:23)
--- NOTE | 2019-10-18 02:21 | CPS ---
airvo setting maxxed out, switched pt to bipap 14/8 60% with a sitter at his bedside.
[2019-10-18] MEDS: hydrALAZINE 20 MG/ML Vial 10 MG IV (04:12)
[2019-10-18 05:25] LABS: Absolute Lymphocyte Count 0.48 X10^3/uL (0.83-4.51); Absolute Neutrophil Count 13.5 X10^3/uL (2.0-7.7); Basophil# 0.02 X10^3/uL; Basophil% 0.1 % (0-1); Hematocrit 45.9 % (40-54); Hemoglobin 15.1 g/dL (13.0-16.5); Lymphocyte # 0.48 X10^3/ul (4.0); Lymphocyte % 3.1 % (19-41); Mean Corp Hgb Conc 32.9 g/dL (32-36); Mean Corpuscular Hgb 31.3 pg (27.0-32.0); Mean Platelet Vol. 12.5 fl (6.2-12.0); Monocyte# 1.43 X10^3/uL; Monocyte% 9.2 % (0-10); NRBC Flagged by Analyzer 0 % (0-5); Neutrophil # 13.51 X10^3/uL (2.7-7.7); Neutrophil % 87.1 % (47-70); POSITIVE DIFFERENTIAL YES; Platelet Count 126 K/mm3 (150-450); RBC Distribution Width CV 13.3 % (11.6-14.6); RBC Distribution Width SD 46.5 fl (35.1-43.9); Red Blood Count 4.83 M/mm3 (4.6-6.2); White Blood Count 15.5 K/mm3 (4.4-11.0)
[2019-10-18 05:26] LABS: Differential Indicated SCAN CRITERIA MET
[2019-10-18 06:12] LABS: Differential Comment SCANNED
[2019-10-18 06:17] LABS: ALB/GLOB Ratio 0.9 RATIO (0.9-2.4); AST(SGOT) 1776 U/L (15-37); Alanine Aminotransfer ALT/SGPT 999 U/L (16-61); Albumin, Serum 3.2 g/dL (3.2-5.0); Alkaline Phosphatase 85 U/L (45-117); Anion Gap 11 (5-15); BUN 53 mg/dL (7-18); BUN/Creat Ratio 48.2 RATIO (10-20); Calcium,Total 8.9 mg/dL (8.5-10.1); Chloride 115 mmol/L (98-107); EST Glomerular Filtration Rate 70 mL/min (>60); Est Glom Filt Rate - Afr Amer 85 mL/min (>60); Globulin 3.4 g/dL (2.2-4.2); Glucose 179 mg/dL (74-106); LDH 1674 U/L (87-241); Protein, Total 6.6 g/dL (6.4-8.2); Sodium Level 149 mmol/L (136-145)
[2019-10-18 06:26] LABS: Bedside Glucose 168 mg/dL (70-110)
[2019-10-18] MEDS: Ipratropium/Albuterol Sulfate 3 ML AMPUL.NEB INHALATION ×4 (07:25→23:55)
--- NOTE | 2019-10-18 09:51 | US_ITS ---
STUDY: ABDOMINAL ULTRASOUND - RIGHT UPPER QUADRANT REASON FOR VISIT: Male, 68 years old ELEVATED LFTS -- ABNORMAL LABS TECHNIQUE: Ultrasound evaluation of the right upper quadrant was performed with real-time and static gonzalez-scale imaging. TECHNICAL QUALITY: Limited. Examination limited due to the patient?s condition. COMPARISON: None. FINDINGS: Liver: The liver measures 15.3 cm. There is normal echogenicity of the liver. The bile ducts are within normal limits. There is hepatic color flow. The direction of portal flow is hepatopetal. There is no demonstrated mass lesion. Gallbladder: Normal distended gallbladder. The gallbladder wall measures 1.5 mm. There is a negative sonographic Avery''s sign. There is no pericholecystic fluid. There are no gallstones. Common Bile Duct (C.B.D.): The common bile duct measures 1.6 mm. Pancreas: Normal size of the head, body and tail of the pancreas. There is normal echogenicity of the pancreas. There is no demonstrated pancreatic mass or cyst. Right Kidney: Normal size of the right kidney. The right kidney measures 10.4 cm x 4.4 cm x 4.6 cm. Normal renal cortex. The right cortex measures 1.1 cm. There is a 1.3 cm x 1.4 cm x 1.3 cm cyst. There is no right hydronephrosis. US/Liver IMPRESSION: Normal right upper quadrant ultrasound examination. Electronically Signed: Flaco Gale, at 15:17 EDT , Service support ,
--- NOTE | 2019-10-18 10:41 | PCM.PN.ID ---
Patient Problems: Active and Suspected Problems (Last Reviewed 07/15/18 @ 16:45 by April Hyatt) Severe sepsis (Acute) Acute on chronic respiratory failure with hypoxia (Acute) COPD exacerbation (Acute) Bilateral pneumonia (Acute) Suspected 2019 novel coronavirus infection (Acute) Pneumonia of both lower lobes (Acute) Respiratory failure (Acute) Subjective: O2 requirements went up yesterday, now slowly improving. Abx broadened to meropenem. More awake this AM. - Physical Exam Vitals/I&O's: Vital Signs Temp Pulse Resp BP Pulse Ox 99.1 F 120 H 28 H 152/94 H 96 10/18/19 09:50 10/18/19 09:50 10/18/19 09:50 10/18/19 09:50 10/18/19 09:50 Oxygen Flow Rate (L/min) 11 Oxygen Delivery Method Nasal Cannula Weight: 59.4 kg Body Mass Index (BMI) 21.5 Intake and Output for Last 24 Hours 10/16/19 10/17/19 10/18/19 23:59 23:59 23:59 Intake Total 175 / 175 250.75 / 250.75 149.25 / 149.25 Output Total 525 / 525 600 / 600 Balance -350 / -350 -349.25 / -349.25 149.25 / 149.25 General: - - ill appearing, able to answer some questions Lungs: Using Accessory Muscles, - - improving rhonchi/rales in bases Cardiovascular: Tachycardic Abdomen: Soft, Non Tender, Non-Distended Skin: No rashes Microbiology Past 72 Hours 10/14/19 Unknown Sputum, Induced/Lukens Gram Stain - Final 10/14/19 Unknown Sputum, Induced/Lukens Respiratory Culture - Final Strep not Strep pneumo 10/14/19 00:40 Blood Culture (Wb) - Anticubital Left Blood Culture - Preliminary No growth in 48 hours. 10/14/19 00:38 Blood Culture (Wb) - Right Hand Blood Culture - Preliminary No growth in 48 hours. 10/14/19 01:35 Urine, Clean Catch Urine Culture - Final Culture exhibits no growth. 10/14/19 00:38 Mucosa - Throat Group A Streptococcus Rapid Screen - Final Laboratory Results 10/17/19 12:09: POC Glucose 193 H 10/17/19 17:35: POC Glucose 178 H 10/18/19 00:04: POC Glucose 169 H 10/18/19 05:18: WBC 15.5 H, RBC 4.83, Hgb 15.1, Hct 45.9, MCV 95.0 H, MCH 31.3, MCHC 32.9, RDW Std Deviation 46.5 H, RDW Coeff of Xenia 13.3, Plt Count 126 L, MPV 12.5 H, Immature Gran % (Auto) 0.500, Neut % (Auto) 87.1 H, Lymph % (Auto) 3.1 L, [place] % (Auto) 9.2, Eos % (Auto) 0.0, Baso % (Auto) 0.1, Absolute Neuts (auto) 13.5 H, Absolute Lymphs (auto) 0.48 L, Nucleated RBC % 0, Differential Comment SCANNED 10/18/19 05:18: Sodium 149 H, Potassium 4.0, Chloride 115 H, Carbon Dioxide 23.0, Anion Gap 11, BUN 53 H, Creatinine 1.10, Estim Creat Clear Calc 52.50, Est GFR (MDRD) Af Amer 85, Est GFR (MDRD) Non-Af 70, BUN/Creatinine Ratio 48.2 H, Glucose 179 H, Calcium 8.9, Total Bilirubin 1.20 H, AST 1776 H, ALT 999 H, Alkaline Phosphatase 85, Lactate Dehydrogenase 1674 H, Total Protein 6.6, Albumin 3.2, Globulin 3.4, Albumin/Globulin Ratio 0.9 10/18/19 06:15: POC Glucose 168 H Current Medications Acetaminophen (Tylenol) 650 mg PO Q6H PRN PRN PRN Reason: Pain Score 1-10/Temp > 100.7 F Al Hydroxide/Mg Hydroxide (Mylanta Ii) 30 ml PO Q6H PRN PRN PRN Reason: Gastric Burning Albuterol Sulfate (Ventolin Aerosols) 2.5 mg INHALATION Q2H PRN PRN PRN Reason: Dyspnea, wheezing Last Admin: 10/16/19 14:35 Dose: 2.5 mg Documented by: Albuterol/Ipratropium (Duoneb) 3 ml INHALATION Q4HWA.RT [facility] Last Admin: 10/18/19 07:25 Dose: 3 ml Documented by: Aspirin (Aspirin, Baby) 81 mg PO DAILY [facility] Last Admin: 10/17/19 12:04 Dose: Not Given Documented by: Atorvastatin Calcium (Lipitor) 10 mg GT QHS [facility] Last Admin: 10/17/19 21:11 Dose: Not Given Documented by: Bupropion HCl (Wellbutrin Sr (150mg Tablets)) 150 mg PO DAILY [facility] Last Admin: 10/17/19 12:04 Dose: Not Given Documented by: Clopidogrel Bisulfate (Plavix) 75 mg PO DAILY [facility] Last Admin: 10/17/19 12:04 Dose: Not Given Documented by: Dextrose (D50w Syringe) 0 gm IV X1 PRN; Protocol PRN Reason: Hypoglycemia Dicyclomine HCl (Bentyl) 20 mg PO Q6H PRN PRN PRN Reason: abdominal discomfort Enoxaparin Sodium (Lovenox) 40 mg SC DAILY [facility] Last Admin: 10/17/19 13:12 Dose: 40 mg Documented by: Gabapentin (Neurontin) 300 mg PO DAILY [facility] Last Admin: 10/17/19 12:04 Dose: Not Given Documented by: Glucagon () 1 mg IM .X1 PRN PRN Reason: Hypoglycemia Guaifenesin (Robitussin) 10 ml PO Q4H PRN PRN PRN Reason: COUGH Hydralazine HCl (Apresoline Iv) 10 mg IV Q6H PRN PRN PRN Reason: BLOOD PRESSURE Last Admin: 10/18/19 04:12 Dose: 10 mg Documented by: Hydroxyzine Pamoate (Vistaril Pamoate Capsule) 50 mg PO Q4H PRN PRN PRN Reason: mild anxiety Sodium Chloride () 250 mls @ 15 mls/hr IV .[id number] PRN PRN Reason: Saline Flush Last Admin: 10/15/19 12:00 Dose: 15 mls/hr Documented by: Sodium Chloride () 250 mls @ 15 mls/hr IV .[id number] PRN PRN Reason: Additional IVPB Infusion Dextrose () 1,000 mls @ 100 mls/hr IV .Q10H [facility] Last Admin: 10/18/19 09:32 Dose: 100 mls/hr Documented by: Cefepime HCl 2 gm/ Sodium (Chloride) 100 mls @ 200 mls/hr IV Q12 [facility] Insulin Human Lispro (Humalog Kwikpen (Bkc)) 0 unit SC Q6 [facility]; Protocol Last Admin: 10/18/19 06:25 Dose: Not Given Documented by: Loperamide HCl (Imodium) 2 mg PO Q4H PRN PRN PRN Reason: LOOSE STOOLS Lorazepam (Ativan) 1 mg IV Q4H PRN PRN PRN Reason: ANXIETY Magnesium Hydroxide (Milk Of Magnesia) 30 ml PO DAILY PRN PRN PRN Reason: Constipation Methylprednisolone (Solu-Medrol) 40 mg IV Q8 [facility] Last Admin: 10/18/19 06:04 Dose: 40 mg Documented by: Metoprolol Tartrate (Lopressor (Beta Agnieszka)) 5 mg IV Q6 [facility] Last Admin: 10/18/19 06:05 Dose: 5 mg Documented by: Morphine Sulfate () 1 mg IV Q2H PRN PRN PRN Reason: Pain Score 6-10/10 Last Admin: 10/18/19 05:05 Dose: 1 mg Documented by: Multivitamins/Minerals (Multivitamin With Minerals (Bkc)) 1 tablet PO DAILYCM [facility] Last Admin: 10/17/19 12:01 Dose: Not Given Documented by: Nitroglycerin (Nitrostat) 0.4 mg SUBLINGUAL Q5M PRN PRN Reason: CARDIAC/CHEST PAIN Psyllium Hydrophilic Mucilloid (Metamucil) 1 packet PO DAILY PRN PRN PRN Reason: Constipation Ranolazine (Ranexa) 1,000 mg PO DAILY [facility] Last Admin: 10/17/19 12:04 Dose: Not Given Documented by: Senna/Docusate Sodium (Senokot-S, Ami-Colace) 2 tablet PO BID PRN PRN PRN Reason: Constipation Sodium Chloride () 10 - 40 ml IV UD PRN PRN Reason: SALINE FLUSH Last Admin: 10/18/19 05:04 Dose: 10 ml Documented by: Throat Lozenges (Cepacol Sore Throat Lozenge) 1 lozenge MUCOUS MEM Q2H PRN PRN PRN Reason: SORE THROAT Trazodone HCl (Desyrel) 100 mg PO QHS PRN PRN Reason: INSOMNIA Medical Necessity - Tobacco Use Smoking Status: Former smoker Tobacco Use: Non-smoker Route of nutrition/ use of supplements: [] Nutritional Intake: [] IV Site: [] Moreira Catheter: [] - Assessment/Plan Antibiotics: [] Assessment/Plan: [] Active and Suspected Problems (Last Reviewed 07/15/18 @ 16:45 by April Hyatt) Severe sepsis (Acute) Acute on chronic respiratory failure with hypoxia (Acute) COPD exacerbation (Acute) Bilateral pneumonia (Acute) Suspected 2019 novel coronavirus infection (Acute) Pneumonia of both lower lobes (Acute) Respiratory failure (Acute) Subjective fever at home, reported chest pain, hypoxia, cough. COVID neg. Able to be extubated and transferred out of icu. Abx broadened from ceftriaxone to meropenem 10/15, now with high AST/ALT/LDH. No other clear cause of LFTs, recommend changing robert to cefepime. Lungs sound better today but still with high O2 reqs. Will follow, d/w Dr. Rodriguez
--- NOTE | 2019-10-18 10:50 | RAD_ITS ---
STUDY: X-RAY CHEST REASON FOR EXAM: Male, 68 years old. SOB, PNEUMONIA TECHNIQUE: Single AP portable view of the chest. COMPARISON: Comparison is made with prior examination October 16, 2019. FINDINGS: EKG electrodes are seen. Persistent diffuse increased interstitial markings in both lungs worse on the right side with areas of confluence in the right lower lobe. This is suggestive of chronic interstitial fibrosis and possible superimposition of right basilar atelectasis. There is been essentially no change. Blunting of both cause phrenic angles. Normal size heart. Normal mediastinum and taco. Normal visualized pulmonary arteries. There is atherosclerotic calcification of the aortic arch with tortuosity. There are diffuse degenerative changes of the visualized thoracic spine. Normal visualized ribs, clavicles, and shoulders. There is no demonstrated abnormality of the visualized soft tissue structures of the upper abdomen. RAD/Chest 1 View (Portable) IMPRESSION: Stable examination. Electronically Signed: Flaco Gale, at 11:58 EDT , Service support ,
--- NOTE | 2019-10-18 10:57 | PN_ITS ---
Patient Problems: Active and Suspected Problems (Last Reviewed 07/15/18 @ 16:45 by April Hyatt) Severe sepsis (Acute) Acute on chronic respiratory failure with hypoxia (Acute) COPD exacerbation (Acute) Bilateral pneumonia (Acute) Suspected 2019 novel coronavirus infection (Acute) Pneumonia of both lower lobes (Acute) Respiratory failure (Acute) Reason for Visit: Follow-up on respiratory distress/severe sepsis secondary to pneumonia Subjective: Patient was seen and examined. He remains confused, sitter at bedside, in bilateral soft restraints. Remains on high oxygen requirements; Airvo 55L 91% Objective: Physical exam: General: Alert, Confused, - - in mild respiratory distress, on Airvo 55L 91% HEENT: Atraumatic, PERRLA, EOMI, Normocephalic Oral: Moist Mucosa Neck: Supple Lungs: Clear to auscultation, Normal air movement Cardiovascular: Regular rate, Regular Rhythm, Normal S1, Normal S2, No murmurs Abdomen: Bowel Sounds Present, Soft, Non Tender, Non-Distended, No Hepato- splenomegaly Extremities: No edema Skin: No rashes, No breakdown Musculoskeletal: No Tenderness to Palpation of Joints or Extremities Lymphatic: No Cervical, Supraclavicular, or Inguinal Adenopathy Neurological: Cranial nerves II-XII grossly intact, Neuro grossly intact Psych/Mental Status: Normal Affect, Appropriate Vitals/I&O's: Vital Signs Temp Pulse Resp BP Pulse Ox 99.1 F 121 H 22 H 152/94 H 96 10/18/19 09:50 10/18/19 10:46 10/18/19 10:46 10/18/19 09:50 10/18/19 09:50 Oxygen Flow Rate (L/min) 11 Oxygen Delivery Method Nasal Cannula Weight: 59.4 kg Body Mass Index (BMI) 21.5 Intake and Output for Last 24 Hours 10/16/19 10/17/19 10/18/19 23:59 23:59 23:59 Intake Total 175 / 175 250.75 / 250.75 149.25 / 149.25 Output Total 525 / 525 600 / 600 Balance -350 / -350 -349.25 / -349.25 149.25 / 149.25 Microbiology Past 72 Hours 10/14/19 Unknown Sputum, Induced/Lukens Gram Stain - Final 10/14/19 Unknown Sputum, Induced/Lukens Respiratory Culture - Final Strep not Strep pneumo 10/14/19 00:40 Blood Culture (Wb) - Anticubital Left Blood Culture - Preliminary No growth in 48 hours. 10/14/19 00:38 Blood Culture (Wb) - Right Hand Blood Culture - Preliminary No growth in 48 hours. 10/14/19 01:35 Urine, Clean Catch Urine Culture - Final Culture exhibits no growth. 10/14/19 00:38 Mucosa - Throat Group A Streptococcus Rapid Screen - Final Laboratory Results 10/17/19 12:09: POC Glucose 193 H 10/17/19 17:35: POC Glucose 178 H 10/18/19 00:04: POC Glucose 169 H 10/18/19 05:18: WBC 15.5 H, RBC 4.83, Hgb 15.1, Hct 45.9, MCV 95.0 H, MCH 31.3, MCHC 32.9, RDW Std Deviation 46.5 H, RDW Coeff of Xenia 13.3, Plt Count 126 L, MPV 12.5 H, Immature Gran % (Auto) 0.500, Neut % (Auto) 87.1 H, Lymph % (Auto) 3.1 L , [place] % (Auto) 9.2, Eos % (Auto) 0.0, Baso % (Auto) 0.1, Absolute Neuts (auto) 13.5 H, Absolute Lymphs (auto) 0.48 L, Nucleated RBC % 0, Differential Comment SCANNED 10/18/19 05:18: Sodium 149 H, Potassium 4.0, Chloride 115 H, Carbon Dioxide 23.0, Anion Gap 11, BUN 53 H, Creatinine 1.10, Estim Creat Clear Calc 52.50, Est GFR (MDRD) Af Amer 85, Est GFR (MDRD) Non-Af 70, BUN/Creatinine Ratio 48.2 H, Glucose 179 H, Calcium 8.9, Total Bilirubin 1.20 H, AST 1776 H, ALT 999 H, Alkaline Phosphatase 85, Lactate Dehydrogenase 1674 H, Total Protein 6.6, Albumin 3.2, Globulin 3.4, Albumin/Globulin Ratio 0.9 10/18/19 06:15: POC Glucose 168 H Current Medications Acetaminophen (Tylenol) 650 mg PO Q6H PRN PRN PRN Reason: Pain Score 1-10/Temp > 100.7 F Al Hydroxide/Mg Hydroxide (Mylanta Ii) 30 ml PO Q6H PRN PRN PRN Reason: Gastric Burning Albuterol Sulfate (Ventolin Aerosols) 2.5 mg INHALATION Q2H PRN PRN PRN Reason: Dyspnea, wheezing Last Admin: 10/16/19 14:35 Dose: 2.5 mg Documented by: Albuterol/Ipratropium (Duoneb) 3 ml INHALATION Q4HWA.RT [facility] Last Admin: 10/18/19 10:44 Dose: 3 ml Documented by: Aspirin (Aspirin, Baby) 81 mg PO DAILY [facility] Last Admin: 10/17/19 12:04 Dose: Not Given Documented by: Atorvastatin Calcium (Lipitor) 10 mg GT QHS [facility] Last Admin: 10/17/19 21:11 Dose: Not Given Documented by: Bupropion HCl (Wellbutrin Sr (150mg Tablets)) 150 mg PO DAILY [facility] Last Admin: 10/17/19 12:04 Dose: Not Given Documented by: Clopidogrel Bisulfate (Plavix) 75 mg PO DAILY [facility] Last Admin: 10/17/19 12:04 Dose: Not Given Documented by: Dextrose (D50w Syringe) 0 gm IV X1 PRN; Protocol PRN Reason: Hypoglycemia Dicyclomine HCl (Bentyl) 20 mg PO Q6H PRN PRN PRN Reason: abdominal discomfort Enoxaparin Sodium (Lovenox) 40 mg SC DAILY [facility] Last Admin: 10/17/19 13:12 Dose: 40 mg Documented by: Gabapentin (Neurontin) 300 mg PO DAILY [facility] Last Admin: 10/17/19 12:04 Dose: Not Given Documented by: Glucagon () 1 mg IM .X1 PRN PRN Reason: Hypoglycemia Guaifenesin (Robitussin) 10 ml PO Q4H PRN PRN PRN Reason: COUGH Hydralazine HCl (Apresoline Iv) 10 mg IV Q6H PRN PRN PRN Reason: BLOOD PRESSURE Last Admin: 10/18/19 04:12 Dose: 10 mg Documented by: Hydroxyzine Pamoate (Vistaril Pamoate Capsule) 50 mg PO Q4H PRN PRN PRN Reason: mild anxiety Sodium Chloride () 250 mls @ 15 mls/hr IV .[id number] PRN PRN Reason: Saline Flush Last Admin: 10/15/19 12:00 Dose: 15 mls/hr Documented by: Sodium Chloride () 250 mls @ 15 mls/hr IV .[id number] PRN PRN Reason: Additional IVPB Infusion Dextrose () 1,000 mls @ 100 mls/hr IV .Q10H [facility] Last Admin: 10/18/19 09:32 Dose: 100 mls/hr Documented by: Cefepime HCl 2 gm/ Sodium (Chloride) 100 mls @ 200 mls/hr IV Q12 [facility] Insulin Human Lispro (Humalog Kwikpen (Bkc)) 0 unit SC Q6 [facility]; Protocol Last Admin: 10/18/19 06:25 Dose: Not Given Documented by: Loperamide HCl (Imodium) 2 mg PO Q4H PRN PRN PRN Reason: LOOSE STOOLS Lorazepam (Ativan) 1 mg IV Q4H PRN PRN PRN Reason: ANXIETY Magnesium Hydroxide (Milk Of Magnesia) 30 ml PO DAILY PRN PRN PRN Reason: Constipation Methylprednisolone (Solu-Medrol) 40 mg IV Q8 [facility] Last Admin: 10/18/19 06:04 Dose: 40 mg Documented by: Metoprolol Tartrate (Lopressor (Beta Agnieszka)) 5 mg IV Q6 [facility] Last Admin: 10/18/19 06:05 Dose: 5 mg Documented by: Morphine Sulfate () 1 mg IV Q2H PRN PRN PRN Reason: Pain Score 6-10/10 Last Admin: 10/18/19 05:05 Dose: 1 mg Documented by: Multivitamins/Minerals (Multivitamin With Minerals (Bkc)) 1 tablet PO DAILYCM [facility] Last Admin: 10/17/19 12:01 Dose: Not Given Documented by: Nitroglycerin (Nitrostat) 0.4 mg SUBLINGUAL Q5M PRN PRN Reason: CARDIAC/CHEST PAIN Psyllium Hydrophilic Mucilloid (Metamucil) 1 packet PO DAILY PRN PRN PRN Reason: Constipation Ranolazine (Ranexa) 1,000 mg PO DAILY [facility] Last Admin: 10/17/19 12:04 Dose: Not Given Documented by: Senna/Docusate Sodium (Senokot-S, Ami-Colace) 2 tablet PO BID PRN PRN PRN Reason: Constipation Sodium Chloride () 10 - 40 ml IV UD PRN PRN Reason: SALINE FLUSH Last Admin: 10/18/19 05:04 Dose: 10 ml Documented by: Throat Lozenges (Cepacol Sore Throat Lozenge) 1 lozenge MUCOUS MEM Q2H PRN PRN PRN Reason: SORE THROAT Trazodone HCl (Desyrel) 100 mg PO QHS PRN PRN Reason: INSOMNIA STROKE Vital Signs/Narrative: Vital Signs Temp Pulse Resp BP Pulse Ox 10/18/19 10:46 121 H 22 H 10/18/19 09:50 99.1 F 120 H 28 H 152/94 H 96 10/18/19 08:50 99.3 F H 118 H 22 H 162/96 H 95 10/18/19 07:55 99.4 F H 115 H 24 H 168/100 H 94 10/18/19 07:25 116 H 22 H 94 10/18/19 07:00 97.7 F L 118 H 26 H 151/96 H 94 Medical Necessity - Tobacco Use Smoking Status: Former smoker Tobacco Use: Non-smoker Assessment/Plan All Active Problems (Last Reviewed 07/15/18 @ 16:45 by April Hyatt) Severe sepsis (Acute) Acute on chronic respiratory failure with hypoxia (Acute) COPD exacerbation (Acute) Bilateral pneumonia (Acute) Suspected 2018 novel coronavirus infection (Acute) Pneumonia of both lower lobes (Acute) Respiratory failure (Acute) Bronchitis (Acute) URI (upper respiratory infection) (Acute) Sinusitis, acute maxillary (Acute) 1. Acute delirium, unclear etiology, remains about the same Likely has a component of hypoxia vs opioid withdrawal On morphine prn, on bilateral soft wrist restraints as patient has been taking Airvo off Will continue to monitor for oversedation 2. Acute hypoxic respiratory failure secondary to progressive bilateral pneumonia/aspiration pneumonia/right pleural effusion status post extubation on 10/15/19, remains on Airvo, 55L Spo2 91% today Repeat CXR has persistent interstitial changes Patent is going for right thoracocentesis, will be monitored in ICU. 3. Elevated LFTs, work-up with elevation of total bilirubin to 1.20, AST 1776, ALT 999 LFTs yesterday were normal We will get an ultrasound of the liver, will continue to monitor 4. Severe sepsis secondary to bilateral pneumonia/ aspiration pneumonia On meropenem, will switch to cefepime 2g Q8 5. Hypertension, uncontrolled, on home metoprolol and hydralazine Will switch to labetalol IV q4 prn 6. CAD status post CABG/hyperlipidemia/carotid artery stenosis/renal artery pseudoaneurysm/history of brain aneurysm On aspirin, Plavix, beta-agnieszka 7. Anxiety/depression/chronic pain syndrome, on IV morphine now Home antidepressants on hold 8. DVT PPx- Lovenox SC 9. Code status - Full code Inpatient E&M: 30266 Subs Hosp L3
[2019-10-18 12:40] LABS: Bedside Glucose 189 mg/dL (70-110)
--- NOTE | 2019-10-18 12:58 | PN_ITS ---
Subjective: Patient continues to have difficulty with saturations. Patient was placed on BiPAP for a short period of time overnight while restrained. Patient has been on Airvo for most of the day requiring 91% FiO2 to maintain appropriate saturations. Patient is not able to provide much additional information. Patient does have a thoracentesis ordered, but this will not be completed until 1:30 PM. Given issues with saturations, a chest x-ray was obtained by the hospitalist service. Objective: Repeat chest x-ray was personally reviewed and appears to be consistent with previous film. General: Alert, Confused, Disoriented, Non-Cooperative, - - Moderate respiratory distress. Not really following commands. HEENT: Atraumatic, PERRLA, EOMI, Normocephalic, - Oral: No Gingival or Mucosal Lesions/ Ulcerations, Dry Mucosa - Some temporal wasting noted. Neck: Supple, No JVD, No Nodes, Trachea Midline Lungs: No wheeze, Diminished - Bilateral with dullness to percussion, Rales - Bilateral, Tachypneic Cardiovascular: Normal S1, Normal S2, No murmurs, No rub noted, No Gallop, Tachycardic Abdomen: Bowel Sounds Present, Soft, Non Tender, Non-Distended Extremities: No clubbing, No cyanosis, No edema, Capillary Refill Less than 3 Seconds Skin: No rashes, No breakdown Musculoskeletal: No Tenderness to Palpation of Joints or Extremities, Cachexia, Muscle Wasting Lymphatic: No Cervical, Supraclavicular, or Inguinal Adenopathy Neurological: Cranial nerves II-XII grossly intact, Neuro grossly intact, Motor Exam 5/5 strength throughout Psych/Mental Status: Anxious, Impulsive, Restless Vital Signs Temp Pulse Resp BP Pulse Ox 36.6 C 121 H 24 H 164/92 H 97 10/18/19 11:50 10/18/19 12:02 10/18/19 11:50 10/18/19 12:14 10/18/19 11:50 Oxygen Flow Rate (L/min) 11 Oxygen Delivery Method Nasal Cannula Weight: 59.4 kg Body Mass Index (BMI) 21.5 Intake and Output for Last 24 Hours 10/16/19 10/17/19 10/18/19 23:59 23:59 23:59 Intake Total 175 / 175 250.75 / 250.75 149.25 / 149.25 Output Total 525 / 525 600 / 600 Balance -350 / -350 -349.25 / -349.25 149.25 / 149.25 Labs (Last 48 Hours) 10/16/19 10/16/19 10/16/19 16:59 20:07 21:58 WBC RBC Hgb Hct MCV MCH MCHC RDW Std Deviation RDW Coeff of X[place] Plt Count MPV Immature Gran % (Auto) Neut % (Auto) Lymph % (Auto) [place] % (Auto) Eos % (Auto) Baso % (Auto) Absolute Neuts (auto) Absolute Lymphs (auto) Nucleated RBC % Differential Comment Platelet Estimate RBC Morphology Specimen Type ART Sample Site L BRACHIAL pH 7.41 Bicarbonate Actual 24.5 POC Total CO2 26 Base Excess 0 O2 Saturation 93 L O2 % ABG pCO2 38.6 ABG pO2 67 L Sha Test O2 Delivery Device NRB Mask Liter Flow 15.0 Vent Mode Blood Gas Notified Whom [facility] Blood Gas Notified Time 2009 Sodium Potassium Chloride Carbon Dioxide Anion Gap BUN Creatinine Estim Creat Clear Calc Est GFR (MDRD) Af Amer Est GFR (MDRD) Non-Af BUN/Creatinine Ratio Glucose Hemoglobin A1c Calcium Total Bilirubin AST ALT Alkaline Phosphatase Lactate Dehydrogenase Total Protein Albumin Globulin Albumin/Globulin Ratio POC Glucose 146 H 173 H 10/17/19 10/17/19 10/17/19 00:02 05:41 07:20 WBC 14.4 H RBC 4.61 Hgb 14.5 Hct 43.4 MCV 94.1 H MCH 31.5 MCHC 33.4 RDW Std Deviation 45.7 H RDW Coeff of X[place] 13.2 Plt Count 116 L MPV 12.6 H Immature Gran % (Auto) 0.400 Neut % (Auto) 89.8 H Lymph % (Auto) 2.9 L [place] % (Auto) 6.9 Eos % (Auto) 0.0 Baso % (Auto) 0.0 Absolute Neuts (auto) 13.0 H Absolute Lymphs (auto) 0.42 L Nucleated RBC % 0 Differential Comment Platelet Estimate SLT DEC RBC Morphology NORM C+C Specimen Type Sample Site pH Bicarbonate Actual POC Total CO2 Base Excess O2 Saturation O2 % ABG pCO2 ABG pO2 Sha Test O2 Delivery Device Liter Flow Vent Mode Blood Gas Notified Whom Blood Gas Notified Time Sodium Potassium Chloride Carbon Dioxide Anion Gap BUN Creatinine Estim Creat Clear Calc Est GFR (MDRD) Af Amer Est GFR (MDRD) Non-Af BUN/Creatinine Ratio Glucose Hemoglobin A1c Calcium Total Bilirubin AST ALT Alkaline Phosphatase Lactate Dehydrogenase Total Protein Albumin Globulin Albumin/Globulin Ratio POC Glucose 165 H 161 H 10/17/19 10/17/19 10/17/19 07:20 07:20 09:24 WBC RBC Hgb Hct MCV MCH MCHC RDW Std Deviation RDW Coeff of [place] Plt Count MPV Immature Gran % (Auto) Neut % (Auto) Lymph % (Auto) [place] % (Auto) Eos % (Auto) Baso % (Auto) Absolute Neuts (auto) Absolute Lymphs (auto) Nucleated RBC % Differential Comment Platelet Estimate RBC Morphology Specimen Type ART Sample Site R RADIAL pH 7.46 H Bicarbonate Actual 23.5 POC Total CO2 25 Base Excess 0 O2 Saturation 87 L O2 % 80 ABG pCO2 33.4 L ABG pO2 49 L Sha Test NA O2 Delivery Device Liter Flow 60.0 Vent Mode Airvo Blood Gas Notified Whom [facility] Blood Gas Notified Time 924 Sodium 142 Potassium 4.4 Chloride 109 H Carbon Dioxide 26.0 Anion Gap 7 BUN 30 H Creatinine 0.64 L Estim Creat Clear Calc 62.03 Est GFR (MDRD) Af Amer 158 Est GFR (MDRD) Non-Af 131 BUN/Creatinine Ratio 46.7 H Glucose 176 H Hemoglobin A1c 5.2 Calcium 8.6 Total Bilirubin 0.50 AST 57 H ALT 53 Alkaline Phosphatase 84 Lactate Dehydrogenase Total Protein 6.7 Albumin 3.0 L Globulin 3.7 Albumin/Globulin Ratio 0.8 L POC Glucose 10/17/19 10/17/19 10/18/19 12:09 17:35 00:04 WBC RBC Hgb Hct MCV MCH MCHC RDW Std Deviation RDW Coeff of [place] Plt Count MPV Immature Gran % (Auto) Neut % (Auto) Lymph % (Auto) [place] % (Auto) Eos % (Auto) Baso % (Auto) Absolute Neuts (auto) Absolute Lymphs (auto) Nucleated RBC % Differential Comment Platelet Estimate RBC Morphology Specimen Type Sample Site pH Bicarbonate Actual POC Total CO2 Base Excess O2 Saturation O2 % ABG pCO2 ABG pO2 Sha Test O2 Delivery Device Liter Flow Vent Mode Blood Gas Notified Whom Blood Gas Notified Time Sodium Potassium Chloride Carbon Dioxide Anion Gap BUN Creatinine Estim Creat Clear Calc Est GFR (MDRD) Af Amer Est GFR (MDRD) Non-Af BUN/Creatinine Ratio Glucose Hemoglobin A1c Calcium Total Bilirubin AST ALT Alkaline Phosphatase Lactate Dehydrogenase Total Protein Albumin Globulin Albumin/Globulin Ratio POC Glucose 193 H 178 H 169 H 10/18/19 10/18/19 10/18/19 05:18 05:18 06:15 WBC 15.5 H RBC 4.83 Hgb 15.1 Hct 45.9 MCV 95.0 H MCH 31.3 MCHC 32.9 RDW Std Deviation 46.5 H RDW Coeff of X[place] 13.3 Plt Count 126 L MPV 12.5 H Immature Gran % (Auto) 0.500 Neut % (Auto) 87.1 H Lymph % (Auto) 3.1 L [place] % (Auto) 9.2 Eos % (Auto) 0.0 Baso % (Auto) 0.1 Absolute Neuts (auto) 13.5 H Absolute Lymphs (auto) 0.48 L Nucleated RBC % 0 Differential Comment SCANNED Platelet Estimate RBC Morphology Specimen Type Sample Site pH Bicarbonate Actual POC Total CO2 Base Excess O2 Saturation O2 % ABG pCO2 ABG pO2 Sha Test O2 Delivery Device Liter Flow Vent Mode Blood Gas Notified Whom Blood Gas Notified Time Sodium 149 H Potassium 4.0 Chloride 115 H Carbon Dioxide 23.0 Anion Gap 11 BUN 53 H Creatinine 1.10 Estim Creat Clear Calc 52.50 Est GFR (MDRD) Af Amer 85 Est GFR (MDRD) Non-Af 70 BUN/Creatinine Ratio 48.2 H Glucose 179 H Hemoglobin A1c Calcium 8.9 Total Bilirubin 1.20 H AST 1776 H ALT 999 H Alkaline Phosphatase 85 Lactate Dehydrogenase 1674 H Total Protein 6.6 Albumin 3.2 Globulin 3.4 Albumin/Globulin Ratio 0.9 POC Glucose 168 H 10/18/19 12:14 WBC RBC Hgb Hct MCV MCH MCHC RDW Std Deviation RDW Coeff of [place] Plt Count MPV Immature Gran % (Auto) Neut % (Auto) Lymph % (Auto) [place] % (Auto) Eos % (Auto) Baso % (Auto) Absolute Neuts (auto) Absolute Lymphs (auto) Nucleated RBC % Differential Comment Platelet Estimate RBC Morphology Specimen Type Sample Site pH Bicarbonate Actual POC Total CO2 Base Excess O2 Saturation O2 % ABG pCO2 ABG pO2 Sha Test O2 Delivery Device Liter Flow Vent Mode Blood Gas Notified Whom Blood Gas Notified Time Sodium Potassium Chloride Carbon Dioxide Anion Gap BUN Creatinine Estim Creat Clear Calc Est GFR (MDRD) Af Amer Est GFR (MDRD) Non-Af BUN/Creatinine Ratio Glucose Hemoglobin A1c Calcium Total Bilirubin AST ALT Alkaline Phosphatase Lactate Dehydrogenase Total Protein Albumin Globulin Albumin/Globulin Ratio POC Glucose 189 H Microbiology 10/14/19 Unknown Sputum, Induced/Lukens Gram Stain - Final 10/14/19 Unknown Sputum, Induced/Lukens Respiratory Culture - Final Strep not Strep pneumo 10/14/19 00:40 Blood Culture (Wb) - Anticubital Left Blood Culture - Preliminary No growth in 48 hours. 10/14/19 00:38 Blood Culture (Wb) - Right Hand Blood Culture - Preliminary No growth in 48 hours. Clinical Impression(s) from Imaging Studies Chest X-Ray 10/18/19 10:50 IMPRESSION: Stable examination. Electronically Signed: Flaco Shahla, at 11:58 EDT , Service support , Medical Necessity - Tobacco Use Smoking Status: Former smoker Tobacco Use: Non-smoker Assessment/Plan All Active Problems (Last Reviewed 07/15/18 @ 16:45 by April Hyatt) Severe sepsis (Acute) Acute on chronic respiratory failure with hypoxia (Acute) COPD exacerbation (Acute) Bilateral pneumonia (Acute) Suspected 2019 novel coronavirus infection (Acute) Pneumonia of both lower lobes (Acute) Respiratory failure (Acute) Bronchitis (Acute) URI (upper respiratory infection) (Acute) Sinusitis, acute maxillary (Acute) RECOMMENDATIONS: 1. Continue to wean supplemental oxygen to maintain saturations at or above 90%. 2. Await thoracentesis 3. Continue bronchodilators and IV steroids. 4. Encourage incentive spirometer use and mobilize patient as tolerated. 5. Continue empiric antimicrobials per infectious diseases recommendations. 6. Discussed with hospitalist. [place] to transfer to the intensive care unit if no significant response to thoracentesis 7. Send acute hepatitis panel IMPRESSIONS: 1. Acute hypoxemic respiratory failure Likely secondary to COPD with exacerbation precipitated by bilateral lower lobe pneumonia. COVID testing was negative. The patient improved initially with supportive measures including invasive mechanical ventilatory support, antimicrobials, bronchodilators and steroids. He was able to be extubated on the morning of October 14. CT scan on presentation did show bilateral pleural effusions and given refusal of BiPAP therapy with decline throughout the last 24 hours, it is reasonable to proceed with a thoracentesis to see if this would hel p with respiratory status. High clinical suspicion for parapneumonic effusion, so will obtain labs. Today's labs also show a significant elevated LDH and liver enzymes. Hepatic congestion versus acute hepatitis would be a consideration. Would send an acute hepatitis panel. If patient has not significantly improved following thoracentesis, transfer to the intensive care unit may be indicated. Cannot exclude the need for repeat intubation. 2. Severe sepsis Improved from a hemodynamic standpoint. Appears to be secondary to underlying pulmonary infectious process. Continue current supportive measures and antimicrobials as noted above. 3. Coronary artery disease status post CABG/hypertensive emergency Continue outpatient cardiac medication regimen. Patient was significant tachycardia and hypertension noted. Recommend aggressive blood pressure control. Significant tachycardia could be exacerbating diastolic dysfunction. Patient was just given Lopressor. Possibly treat with hydralazine versus initiation of drip. 4. Chronic alcohol dependency/chronic pain syndrome/anxiety/depression/hypertension/hyperlipidemia/acute hepatitis Complicates care, management, recovery and prognosis. Continue home medications as indicated. TIME: 32 minutes of critical care time spent addressing patient's acute hypoxic respiratory failure, hypertensive emergency, review of all data and collaboration with care team (12 PM to 1:11 PM) [id number] Critical care first hour
--- NOTE | 2019-10-18 13:02 | NURSING ---
Report called to WIRER HELPERGABINO Marley. Pt transported to ICU at 1318 with assist of RT Sofia.
[2019-10-18] MEDS: LORazepam 2 MG/ML Syringe 1 MG IV ×3 (13:50→23:18)
--- NOTE | 2019-10-18 14:04 | NURSING ---
thoracentesis being done @ bedside,ativan 1mg given as per order
--- NOTE | 2019-10-18 14:11 | NURSING ---
removed 500cc imtiaz drainage per thoracentesis lt side specimen sent to lab
--- NOTE | 2019-10-18 14:15 | RAD_ITS ---
STUDY: X-RAY CHEST REASON FOR EXAM: Male, 68 years old. POST THORA TECHNIQUE: Single AP portable view of the chest. COMPARISON: Comparison is made with prior study done earlier today. FINDINGS: The patient is status post left thoracentesis. There is no evidence of pneumothorax. Mild residual pleural parenchymal changes seen at the left lung base. Stable appearance of the right lung. RAD/Chest Insp/Exp 2 View IMPRESSION: Status post left thoracentesis. There is no evidence of pneumothorax. Electronically Signed: Flaco Gale, at 15:16 EDT , Service support ,
--- NOTE | 2019-10-18 14:16 | NURSING ---
liver ultrasound being performed
[2019-10-18 14:42] LABS: Cytology, Body Fluid / CSF SEE PATHOLOGY REPORT
--- NOTE | 2019-10-18 14:47 | US_ITS ---
PROCEDURE: ULTRASOUND GUIDED THORACENTESIS. DATE: October 18, 2019. INDICATION: Male, 68 years old. Left pleural effusion. PHYSICIAN: Flaco Gale M.D. PROCEDURE: The risks, benefits, and alternatives to the procedure were explained to the patient. The specific risks of bleeding, infection, and pneumothorax requiring chest tube insertion were discussed and accepted. Written informed consent was obtained. Ultrasonographic evaluation of the left lower pleural space was carried out. An adequate pocket was identified. The patient was placed in the sitting, upright position. The overlying skin was prepped and draped in sterile fashion. 1% lidocaine was administered subcutaneously for local anesthesia. Under ultrasound guidance, a 5 [place] thoracentesis needle/catheter system was advanced into the left posterior lower pleural fluid collection. Approximately 500 mL of imtiaz-colored fluid was drained. The catheter was removed, and a sterile dressing was applied. The patient tolerated the procedure well. A chest x-ray was ordered. US/Thoracentesis W US IMPRESSION: Ultrasound-guided left thoracentesis. Electronically Signed: Flaco Gale, at 14:59 EDT , Service support ,
[2019-10-18 15:13] LABS: Body Fluid Mononuclear WBC # 0.124 10^3/uL; Body Fluid Mononuclear WBC % 91.2 %; Body Fluid Polynuclear WBC # 0.012 10^3/uL; Body Fluid Polynuclear WBC % 8.8 %; Body Fluid Total Cells Counted 0.137 10^3/ul; White Blood Count/Body Fluid 0.136 10^3/uL
[2019-10-18 15:44] LABS: Appearance/Body Fluid CLEAR; Auto B Fluid Analyzer BKGD Ct COUNTS W/IN LIMITS (W/IN LIMITS); Color/Body Fluid LT YEL; Source- Body Fluid THORACENTESIS
[2019-10-18 15:45] LABS: Red Cell Count/Body Fluid 130 /mm3
[2019-10-18 16:25] LABS: VBG BASE EXCESS 1 mmol/L (-1.0-3.5); VBG Bicarbonate 24 mmol/L (22-26); VBG Oxygen Content 25 mmol/L (23-33); VBG PO2 36 mmHg (25-40); VBG SO2 76 % (50-70); VBG pCO2 30.1 mmHg (41-51); VBG pH 7.52 (7.32-7.42)
[2019-10-18 16:32] LABS: Body Fluid QC Type(s) BF1Q; Lymphocytes 84 %; Macrophages 1 %; Monocytes 1 %; Neutrophil (Segs) 14 %
[2019-10-18 16:32] LABS: Blood Gas Specimen Type VEN; SITE R BRACHIAL
[2019-10-18 16:33] LABS: FI02 91; Time Given 1130
[2019-10-18] MEDS: Insulin Lispro 100 UNIT/ML INSULN.PEN SC (17:48)
[2019-10-18 17:55] LABS: Bedside Glucose 217 mg/dL (70-110)
[2019-10-18 18:27] LABS: Glucose, Body Fluid 179 mg/dL (40-70); LDH,Body Fluid 127 Units/l (Not Establ.); Protein, Body Fluid 1.4 g/dL (Not Establ.)
--- NOTE | 2019-10-18 22:30 | CPS ---
decreased FIO2 to 60% and changed out water bag on AirVo
[2019-10-19] VITALS (31 sets, daily range): BP systolic 133–176; BP diastolic 76–121; PULSE 93–122; RESP 12–40; TEMP 36.2–37.7; O2SAT 89–100
[2019-10-19] MEDS: Insulin Lispro 100 UNIT/ML INSULN.PEN SC ×3 (00:26→17:05)
[2019-10-19] MEDS: 0.9% Saline Lock 10 ML Syringe IV ×10 (00:31→22:50)
[2019-10-19 01:16] LABS: Bedside Glucose 189 mg/dL (70-110)
[2019-10-19 03:42] LABS: Absolute Lymphocyte Count 0.39 X10^3/uL (0.83-4.51); Absolute Neutrophil Count 12.6 X10^3/uL (2.0-7.7); Basophil# 0.02 X10^3/uL; Basophil% 0.1 % (0-1); Hematocrit 45.5 % (40-54); Hemoglobin 14.9 g/dL (13.0-16.5); Lymphocyte # 0.39 X10^3/ul (4.0); Lymphocyte % 2.8 % (19-41); Mean Corp Hgb Conc 32.7 g/dL (32-36); Mean Corpuscular Hgb 31.7 pg (27.0-32.0); Mean Corpuscular Volume 96.8 fL (80-94); Mean Platelet Vol. 13.2 fl (6.2-12.0); Monocyte# 0.94 X10^3/uL; Monocyte% 6.7 % (0-10); NRBC Flagged by Analyzer 0.7 % (0-5); Neutrophil # 12.61 X10^3/uL (2.7-7.7); Neutrophil % 90.2 % (47-70); POSITIVE DIFFERENTIAL YES; Platelet Count 106 K/mm3 (150-450); RBC Distribution Width CV 13.4 % (11.6-14.6); RBC Distribution Width SD 48.1 fl (35.1-43.9)
[2019-10-19 03:45] LABS: Differential Indicated SCAN CRITERIA MET
[2019-10-19 04:03] LABS: Differential Comment SCANNED
[2019-10-19 04:05] LABS: ALB/GLOB Ratio 0.9 RATIO (0.9-2.4); AST(SGOT) 1657 U/L (15-37); Alanine Aminotransfer ALT/SGPT 1217 U/L (16-61); Albumin, Serum 3.1 g/dL (3.2-5.0); Alkaline Phosphatase 80 U/L (45-117); Anion Gap 10 (5-15); BUN 56 mg/dL (7-18); BUN/Creat Ratio 50.9 RATIO (10-20); Calcium,Total 8.4 mg/dL (8.5-10.1); Chloride 114 mmol/L (98-107); EST Glomerular Filtration Rate 70 mL/min (>60); Est Glom Filt Rate - Afr Amer 85 mL/min (>60); Globulin 3.3 g/dL (2.2-4.2); Glucose 203 mg/dL (74-106); Potassium 4.1 mmol/L (3.5-5.1); Protein, Total 6.4 g/dL (6.4-8.2); Sodium Level 147 mmol/L (136-145)
[2019-10-19] MEDS: LORazepam 2 MG/ML Syringe 1 MG IV (04:34)
[2019-10-19] MEDS: Morphine 2 MG/ML Syringe 1 MG IV (06:08)
[2019-10-19] MEDS: Haloperidol Lactate 5 MG/ML Vial 3 MG IV (06:58)
[2019-10-19] MEDS: Ipratropium/Albuterol Sulfate 3 ML AMPUL.NEB INHALATION ×4 (07:11→19:45)
[2019-10-19] MEDS: Haloperidol Lactate 5 MG/ML Vial 2 MG IV (07:15)
--- NOTE | 2019-10-19 07:26 | PCM.PN.HOSP ---
Patient Problems: Active and Suspected Problems (Last Reviewed 07/15/18 @ 16:45 by April Hyatt) Severe sepsis (Acute) Acute on chronic respiratory failure with hypoxia (Acute) COPD exacerbation (Acute) Bilateral pneumonia (Acute) Suspected 2019 novel coronavirus infection (Acute) Pneumonia of both lower lobes (Acute) Respiratory failure (Acute) Reason for Visit: Follow-up on respiratory distress/severe sepsis secondary to pneumonia Subjective: Patient was seen and examined. Overnight he has been more delirious, requiring more use of Haldol. He got thoracocentesis done 500 mls of fluid was removed. Patient remains confused. Blood pressures have also been uncontrolled as well as elevated heart rate. Objective: Physical exam: General: Alert, Confused, - - in mild respiratory distress, on Airvo HEENT: Atraumatic, PERRLA, EOMI, Normocephalic Oral: Moist Mucosa Neck: Supple Lungs: Clear to auscultation, Normal air movement Cardiovascular: Regular rate, Regular Rhythm, Normal S1, Normal S2, No murmurs Abdomen: Bowel Sounds Present, Soft, Non Tender, Non-Distended, No Hepato-splenomegaly Extremities: No edema Skin: No rashes, No breakdown Musculoskeletal: No Tenderness to Palpation of Joints or Extremities Lymphatic: No Cervical, Supraclavicular, or Inguinal Adenopathy Neurological: Cranial nerves II-XII grossly intact, Neuro grossly intact Psych/Mental Status: Normal Affect, Appropriate Vitals/I&O's: Vital Signs Temp Pulse Resp BP Pulse Ox 98.0 F 119 H 34 H 173/104 H 98 10/19/19 00:00 10/19/19 06:00 10/19/19 06:00 10/19/19 06:00 10/19/19 03:45 Oxygen Flow Rate (L/min) 11 Oxygen Delivery Method Bi-pap Weight: 60.6 kg Body Mass Index (BMI) 21.5 Intake and Output for Last 24 Hours 10/17/19 10/18/19 10/19/19 23:59 23:59 23:59 Intake Total 250.75 / 250.75 1524.25 / 1524.25 755 / 755 Output Total 600 / 600 Balance -349.25 / -349.25 1524.25 / 1524.25 755 / 755 Microbiology Past 72 Hours 10/14/19 00:38 Blood Culture (Wb) - Right Hand Blood Culture - Final No growth in 5 days. 10/14/19 00:40 Blood Culture (Wb) - Anticubital Left Blood Culture - Final No growth in 5 days. 10/18/19 14:20 Fluid - Thoracentesis Fluid Gram Stain - Final 10/14/19 Unknown Sputum, Induced/Lukens Gram Stain - Final 10/14/19 Unknown Sputum, Induced/Lukens Respiratory Culture - Final Strep not Strep pneumo 10/14/19 01:35 Urine, Clean Catch Urine Culture - Final Culture exhibits no growth. 10/14/19 00:38 Mucosa - Throat Group A Streptococcus Rapid Screen - Final Laboratory Results 10/18/19 11:30: Specimen Type CRISTO, Sample Site R BRACHIAL, O2 % 91, VBG pH 7.52 H, VBG pH (Temp Correct) TNP, VBG pCO2 (Temp Corrct TNP, VBG pO2 36, VBG O2 Sat (Calc) 76 H, VBG O2 Content 25, VBG Base Excess 1, POC Mix VBG pCO2 Pt Tmp 30.1 L, Liter Flow 55.0, Blood Gas Notified Whom [facility] , Blood Gas Notified Time 1130 10/18/19 12:14: POC Glucose 189 H 10/18/19 14:20: Fluid Glucose 179 H, Fluid Total Protein 1.4, Fluid LDH 127 10/18/19 14:20: Fluid Source THORACENTESIS, Fluid Color LT YEL, Fluid Appearance CLEAR, Fluid WBC 0.136, Fluid RBC 130, Fluid Tot Cell Count 0.137, Fld Polynuclear WBCs # 0.012, Fld Polynuclear WBCs % 8.8, Fluid Mononuclear WBCs 0.124, Fld Mononuclear WBCs % 91.2, Fluid Neutrophils 14, Fluid Lymphocytes 84, Fluid Monocytes 1, Fluid Macrophages 1, Fl Pathologist Comment May follow, Fluid Comment 2 SEE COMMENT 10/18/19 14:20: Miscellaneous Cytology Pending 10/18/19 17:40: POC Glucose 217 H 10/19/19 00:21: POC Glucose 189 H 10/19/19 03:30: WBC 14.0 H, RBC 4.70, Hgb 14.9, Hct 45.5, MCV 96.8 H, MCH 31.7, MCHC 32.7, RDW Std Deviation 48.1 H, RDW Coeff of Xenia 13.4, Plt Count 106 L, MPV 13.2 H, Immature Gran % (Auto) 0.200, Neut % (Auto) 90.2 H, Lymph % (Auto) 2.8 L, [place] % (Auto) 6.7, Eos % (Auto) 0.0, Baso % (Auto) 0.1, Absolute Neuts (auto) 12.6 H, Absolute Lymphs (auto) 0.39 L, Nucleated RBC % 0.7, Differential Comment SCANNED 10/19/19 03:30: Sodium 147 H, Potassium 4.1, Chloride 114 H, Carbon Dioxide 23.0, Anion Gap 10, BUN 56 H, Creatinine 1.10, Estim Creat Clear Calc 52.50, Est GFR (MDRD) Af Amer 85, Est GFR (MDRD) Non-Af 70, BUN/Creatinine Ratio 50.9 H, Glucose 203 H, Calcium 8.4 L, Total Bilirubin 1.70 H, AST 1657 H, ALT 1217 H, Alkaline Phosphatase 80, Total Protein 6.4, Albumin 3.1 L, Globulin 3.3, Albumin/Globulin Ratio 0.9 Current Medications Acetaminophen (Tylenol) 650 mg PO Q6H PRN PRN PRN Reason: Pain Score 1-10/Temp > 100.7 F Al Hydroxide/Mg Hydroxide (Mylanta Ii) 30 ml PO Q6H PRN PRN PRN Reason: Gastric Burning Albuterol Sulfate (Ventolin Aerosols) 2.5 mg INHALATION Q2H PRN PRN PRN Reason: Dyspnea, wheezing Last Admin: 10/16/19 14:35 Dose: 2.5 mg Documented by: Albuterol/Ipratropium (Duoneb) 3 ml INHALATION Q4HWA.RT [facility] Last Admin: 10/19/19 07:11 Dose: 3 ml Documented by: Aspirin (Aspirin, Baby) 81 mg PO DAILY [facility] Last Admin: 10/18/19 12:50 Dose: Not Given Documented by: Atorvastatin Calcium (Lipitor) 10 mg GT QHS [facility] Last Admin: 10/18/19 19:33 Dose: Not Given Documented by: Bupropion HCl (Wellbutrin Sr (150mg Tablets)) 150 mg PO DAILY [facility] Last Admin: 10/18/19 12:51 Dose: Not Given Documented by: Carvedilol (Coreg) 6.25 mg PO BID [facility] Clopidogrel Bisulfate (Plavix) 75 mg PO DAILY [facility] Last Admin: 10/18/19 12:51 Dose: Not Given Documented by: Dextrose (D50w Syringe) 0 gm IV X1 PRN; Protocol PRN Reason: Hypoglycemia Dicyclomine HCl (Bentyl) 20 mg PO Q6H PRN PRN PRN Reason: abdominal discomfort Enoxaparin Sodium (Lovenox) 40 mg SC DAILY [facility] Last Admin: 10/18/19 12:50 Dose: Not Given Documented by: Glucagon () 1 mg IM .X1 PRN PRN Reason: Hypoglycemia Guaifenesin (Robitussin) 10 ml PO Q4H PRN PRN PRN Reason: COUGH Sodium Chloride () 250 mls @ 15 mls/hr IV .[id number] PRN PRN Reason: Saline Flush Last Admin: 10/15/19 12:00 Dose: 15 mls/hr Documented by: Sodium Chloride () 250 mls @ 15 mls/hr IV .[id number] PRN PRN Reason: Additional IVPB Infusion Cefepime HCl 2 gm/ Sodium (Chloride) 100 mls @ 200 mls/hr IV Q12 [facility] Last Infusion: 10/18/19 23:00 Dose: Infused Documented by: Insulin Human Lispro (Humalog Kwikpen (Bkc)) 0 unit SC Q6 [facility]; Protocol Last Admin: 10/19/19 06:08 Dose: 2 units Documented by: Labetalol HCl (Trandate) 10 mg IV Q4H PRN PRN PRN Reason: BLOOD PRESSURE Last Admin: 10/19/19 06:47 Dose: 10 mg Documented by: Loperamide HCl (Imodium) 2 mg PO Q4H PRN PRN PRN Reason: LOOSE STOOLS Lorazepam (Ativan) 1 mg IV Q4H PRN PRN PRN Reason: ANXIETY Last Admin: 10/19/19 04:34 Dose: 1 mg Documented by: Magnesium Hydroxide (Milk Of Magnesia) 30 ml PO DAILY PRN PRN PRN Reason: Constipation Methylprednisolone (Solu-Medrol) 40 mg IV Q8 [facility] Last Admin: 10/19/19 06:08 Dose: 40 mg Documented by: Morphine Sulfate () 1 mg IV Q2H PRN PRN PRN Reason: Pain Score 6-10/10 Last Admin: 10/19/19 06:08 Dose: 1 mg Documented by: Multivitamins/Minerals ([facility]ivitamin With Minerals (B[facility])) [facility] Admin: 10/18/19 12:50 Dose: Not Given Documented by: Nitroglycerin (Nitrostat) 0.4 mg SUBLINGUAL Q5M PRN PRN Reason: CARDIAC/CHEST PAIN Psyllium Hydrophilic Mucilloid (Metamucil) 1 packet PO DAILY PRN PRN PRN Reason: Constipation Ranolazine (Ranexa) 1,000 mg PO DAILY [facility] Last Admin: 10/18/19 12:51 Dose: Not Given Documented by: Senna/Docusate Sodium (Senokot-S, Ami-Colace) 2 tablet PO BID PRN PRN PRN Reason: Constipation Sodium Chloride () 10 - 40 ml IV UD PRN PRN Reason: SALINE FLUSH Last Admin: 10/19/19 07:10 Dose: 20 ml Documented by: Trazodone HCl (Desyrel) 100 mg PO QHS PRN PRN Reason: INSOMNIA STROKE Vital Signs/Narrative: Vital Signs Pulse Resp BP Pulse Ox 10/19/19 06:00 119 H 34 H 173/104 H 10/19/19 05:00 116 H 33 H 165/96 H 10/19/19 04:00 117 H 34 H 165/103 H 10/19/19 03:45 118 H 30 H 98 Medical Necessity - Tobacco Use Smoking Status: Former smoker Tobacco Use: Non-smoker Assessment/Plan All Active Problems (Last Reviewed 07/15/18 @ 16:45 by April Hyatt) Severe sepsis (Acute) Acute on chronic respiratory failure with hypoxia (Acute) COPD exacerbation (Acute) Bilateral pneumonia (Acute) Suspected 2018 novel coronavirus infection (Acute) Pneumonia of both lower lobes (Acute) Respiratory failure (Acute) Bronchitis (Acute) URI (upper respiratory infection) (Acute) Sinusitis, acute maxillary (Acute) 1. Acute delirium, unclear etiology, persistent Multifactorial in etiology; hypoxia/opioid withdrawal/possible ICU delirium Less suspicious of alcohol withdrawal on account of history from his that since patient drinks 1 beer every night Ammonia is less than 10 On morphine prn, on bilateral soft wrist restraints as patient has been taking his Airvo off Will continue to monitor for oversedation Will obtain CT scan of head 2. Acute hypoxic respiratory failure secondary to progressive bilateral pneumonia/aspiration pneumonia/bilateral pleural effusion status post extubation on 10/15/19, slight improvement in oxygen requirements with decreasing level parameters Repeat CXR has persistent interstitial changes Status post thoracocentesis on the right yesterday, 10/18/19 3. Elevated LFTs, unclear etiology, likely medication related, patient received meropenem Off meropenem, currently on cefepime Previous LFTs were normal We will get an ultrasound of the liver, will continue to monitor 4. Severe sepsis secondary to bilateral pneumonia/ aspiration pneumonia On cefepime 2g Q8h 5. Hypertension, uncontrolled, on home metoprolol and hydralazine Will increase labetalol to 20 mg every 4h as needed 6. CAD status post CABG/hyperlipidemia/carotid artery stenosis/renal artery pseudoaneurysm/history of brain aneurysm Not been able to take aspirin, Plavix or beta-chantel 7. Anxiety/depression/chronic pain syndrome, on IV morphine now Home antidepressants on hold 8. DVT PPx- Lovenox SC 9. Code status - Full code Inpatient E&M: [id number] [facility] L3
[2019-10-19 08:11] LABS: Bedside Glucose 195 mg/dL (70-110)
--- NOTE | 2019-10-19 08:23 | CT_ITS ---
STUDY: CT BRAIN WITHOUT CONTRAST REASON FOR EXAM: Male, 68 years old. DELIRIUM, HTN RADIATION DOSAGE (If Supplied By Facility): CTDIvol = ( 44.99 ) mGy, DLP = ( 880.47 ) mGycm TECHNIQUE: Transaxial CT imaging of the brain was performed without administration of intravenous contrast material. Individualized dose optimization techniques were used for this CT. COMPARISON: No relevant priors. FINDINGS: Normal soft tissue structures. Normal calvarium. Avascular clip is seen along the left side of the [place] suggestive of prior clipping of an aneurysm. There is moderate cerebral atrophy with widening of the extra-axial spaces and ventricular dilatation. Encephalomalacia in the right temporal lobe suggestive of prior ischemic change. Normal basal ganglia and thalami. Normal brainstem. Normal cerebellum. There is no intracranial hemorrhage. There are no findings of an acute ischemic infarction. Normal visualized paranasal sinuses. CT/Brain/Head without Contrast IMPRESSION: Chronic involutional changes of the brain. Vascular clip is seen in the left [place] suggestion of prior clipping of an aneurysm. Electronically Signed: Flaco Gale, at 11:30 EDT , Service support ,
[2019-10-19 08:49] LABS: International Normalized Ratio 1.7; Prothrombin Time (Protime)PT. 19.8 SECONDS (11.7-14.9)
[2019-10-19 09:07] LABS: Ammonia < 10.0 umol/L (11-32)
--- NOTE | 2019-10-19 10:05 | PN_ITS ---
Subjective: Patient did okay overnight. Patient continues to be agitated requiring restraints. Oxygenation did improve significantly following thoracentesis. Patient remains hypertensive and tachycardic. Patient is not overly interactive or following commands at this time. Objective: Patient had a left-sided thoracentesis with 500 cc removed. No complications noted in post procedure x-ray General: Alert, Confused, Disoriented HEENT: Atraumatic, PERRLA, EOMI, Normocephalic, - - No scleral incterus or injection Oral: Moist Mucosa, No Gingival or Mucosal Lesions/ Ulcerations Neck: Supple, No JVD, No Nodes, Trachea Midline Lungs: No wheeze, No rales, Diminished, Rhonchi, - - Symmetric expansion Cardiovascular: Normal S1, Normal S2, No murmurs, No rub noted, No Gallop, Ta chycardic Abdomen: Bowel Sounds Present, Soft, Non Tender, Non-Distended Extremities: No cyanosis, No edema, Capillary Refill Less than 3 Seconds Skin: No rashes, No breakdown Musculoskeletal: No Tenderness to Palpation of Joints or Extremities Lymphatic: No Cervical, Supraclavicular, or Inguinal Adenopathy Neurological: Cranial nerves II-XII grossly intact, Neuro grossly intact Psych/Mental Status: Agitated, Impulsive, Restless Vital Signs Temp Pulse Resp BP Pulse Ox 36.2 C L 112 H 27 H 152/92 H 100 10/19/19 08:00 10/19/19 08:00 10/19/19 08:00 10/19/19 08:00 10/19/19 08:00 Oxygen Flow Rate (L/min) 11 Oxygen Delivery Method Bi-pap Weight: 60.6 kg Body Mass Index (BMI) 21.5 Intake and Output for Last 24 Hours 10/17/19 10/18/19 10/19/19 23:59 23:59 23:59 Intake Total 250.75 / 250.75 1524.25 / 1524.25 755 / 755 Output Total 600 / 600 Balance -349.25 / -349.25 1524.25 / 1524.25 755 / 755 Labs (Last 48 Hours) 10/17/19 10/17/19 10/17/19 07:20 12:09 17:35 WBC RBC Hgb Hct MCV MCH MCHC RDW Std Deviation RDW Coeff of Xenia Plt Count MPV Immature Gran % (Auto) Neut % (Auto) Lymph % (Auto) [place] % (Auto) Eos % (Auto) Baso % (Auto) Absolute Neuts (auto) Absolute Lymphs (auto) Nucleated RBC % Differential Comment PT INR APTT Specimen Type Sample Site O2 % VBG pH VBG pH (Temp Correct) VBG pCO2 (Temp Corrct VBG pO2 VBG O2 Sat (Calc) VBG O2 Content VBG Base Excess POC Mix VBG pCO2 Pt Tmp Liter Flow Blood Gas Notified Whom Blood Gas Notified Time Sodium Potassium Chloride Carbon Dioxide Anion Gap BUN Creatinine Estim Creat Clear Calc Est GFR (MDRD) Af Amer Est GFR (MDRD) Non-Af BUN/Creatinine Ratio Glucose Hemoglobin A1c 5.2 Calcium Total Bilirubin AST ALT Alkaline Phosphatase Ammonia Lactate Dehydrogenase Total Protein Albumin Globulin Albumin/Globulin Ratio Fluid Source Fluid Color Fluid Appearance Fluid WBC Fluid RBC Fluid Tot Cell Count Fld Polynuclear WBCs # Fld Polynuclear WBCs % Fluid Mononuclear WBCs Fld Mononuclear WBCs % Fluid Neutrophils Fluid Lymphocytes Fluid Monocytes Fluid Macrophages Fl Pathologist Comment Fluid Glucose Fluid Total Protein Fluid LDH Fluid Comment 2 Miscellaneous Cytology POC Glucose 193 H 178 H 10/18/19 10/18/19 10/18/19 00:04 05:18 05:18 WBC 15.5 H RBC 4.83 Hgb 15.1 Hct 45.9 MCV 95.0 H MCH 31.3 MCHC 32.9 RDW Std Deviation 46.5 H RDW Coeff of Xenia 13.3 Plt Count 126 L MPV 12.5 H Immature Gran % (Auto) 0.500 Neut % (Auto) 87.1 H Lymph % (Auto) 3.1 L [place] % (Auto) 9.2 Eos % (Auto) 0.0 Baso % (Auto) 0.1 Absolute Neuts (auto) 13.5 H Absolute Lymphs (auto) 0.48 L Nucleated RBC % 0 Differential Comment SCANNED PT INR APTT Specimen Type Sample Site O2 % VBG pH VBG pH (Temp Correct) VBG pCO2 (Temp Corrct VBG pO2 VBG O2 Sat (Calc) VBG O2 Content VBG Base Excess POC Mix VBG pCO2 Pt Tmp Liter Flow Blood Gas Notified Whom Blood Gas Notified Time Sodium 149 H Potassium 4.0 Chloride 115 H Carbon Dioxide 23.0 Anion Gap 11 BUN 53 H Creatinine 1.10 Estim Creat Clear Calc 52.50 Est GFR (MDRD) Af Amer 85 Est GFR (MDRD) Non-Af 70 BUN/Creatinine Ratio 48.2 H Glucose 179 H Hemoglobin A1c Calcium 8.9 Total Bilirubin 1.20 H AST 1776 H ALT 999 H Alkaline Phosphatase 85 Ammonia Lactate Dehydrogenase 1674 H Total Protein 6.6 Albumin 3.2 Globulin 3.4 Albumin/Globulin Ratio 0.9 Fluid Source Fluid Color Fluid Appearance Fluid WBC Fluid RBC Fluid Tot Cell Count Fld Polynuclear WBCs # Fld Polynuclear WBCs % Fluid Mononuclear WBCs Fld Mononuclear WBCs % Fluid Neutrophils Fluid Lymphocytes Fluid Monocytes Fluid Macrophages Fl Pathologist Comment Fluid Glucose Fluid Total Protein Fluid LDH Fluid Comment 2 Miscellaneous Cytology POC Glucose 169 H 10/18/19 10/18/19 10/18/19 06:15 11:30 12:14 WBC RBC Hgb Hct MCV MCH MCHC RDW Std Deviation RDW Coeff of Xenia Plt Count MPV Immature Gran % (Auto) Neut % (Auto) Lymph % (Auto) [place] % (Auto) Eos % (Auto) Baso % (Auto) Absolute Neuts (auto) Absolute Lymphs (auto) Nucleated RBC % Differential Comment PT INR APTT Specimen Type CRISTO Sample Site R BRACHIAL O2 % 91 VBG pH 7.52 H VBG pH (Temp Correct) TNP VBG pCO2 (Temp Corrct TNP VBG pO2 36 VBG O2 Sat (Calc) 76 H VBG O2 Content 25 VBG Base Excess 1 POC Mix VBG pCO2 Pt Tmp 30.1 L Liter Flow 55.0 Blood Gas Notified Whom [facility] Blood Gas Notified Time 1130 Sodium Potassium Chloride Carbon Dioxide Anion Gap BUN Creatinine Estim Creat Clear Calc Est GFR (MDRD) Af Amer Est GFR (MDRD) Non-Af BUN/Creatinine Ratio Glucose Hemoglobin A1c Calcium Total Bilirubin AST ALT Alkaline Phosphatase Ammonia Lactate Dehydrogenase Total Protein Albumin Globulin Albumin/Globulin Ratio Fluid Source Fluid Color Fluid Appearance Fluid WBC Fluid RBC Fluid Tot Cell Count Fld Polynuclear WBCs # Fld Polynuclear WBCs % Fluid Mononuclear WBCs Fld Mononuclear WBCs % Fluid Neutrophils Fluid Lymphocytes Fluid Monocytes Fluid Macrophages Fl Pathologist Comment Fluid Glucose Fluid Total Protein Fluid LDH Fluid Comment 2 Miscellaneous Cytology POC Glucose 168 H 189 H 10/18/19 10/18/19 10/18/19 14:20 14:20 14:20 WBC RBC Hgb Hct MCV MCH MCHC RDW Std Deviation RDW Coeff of Xenia Plt Count MPV Immature Gran % (Auto) Neut % (Auto) Lymph % (Auto) [place] % (Auto) Eos % (Auto) Baso % (Auto) Absolute Neuts (auto) Absolute Lymphs (auto) Nucleated RBC % Differential Comment PT INR APTT Specimen Type Sample Site O2 % VBG pH VBG pH (Temp Correct) VBG pCO2 (Temp Corrct VBG pO2 VBG O2 Sat (Calc) VBG O2 Content VBG Base Excess POC Mix VBG pCO2 Pt Tmp Liter Flow Blood Gas Notified Whom Blood Gas Notified Time Sodium Potassium Chloride Carbon Dioxide Anion Gap BUN Creatinine Estim Creat Clear Calc Est GFR (MDRD) Af Amer Est GFR (MDRD) Non-Af BUN/Creatinine Ratio Glucose Hemoglobin A1c Calcium Total Bilirubin AST ALT Alkaline Phosphatase Ammonia Lactate Dehydrogenase Total Protein Albumin Globulin Albumin/Globulin Ratio Fluid Source THORACENTESIS Fluid Color LT YEL Fluid Appearance CLEAR Fluid WBC 0.136 Fluid RBC 130 Fluid Tot Cell Count 0.137 Fld Polynuclear WBCs # 0.012 Fld Polynuclear WBCs % 8.8 Fluid Mononuclear WBCs 0.124 Fld Mononuclear WBCs % 91.2 Fluid Neutrophils 14 Fluid Lymphocytes 84 Fluid Monocytes 1 Fluid Macrophages 1 Fl Pathologist Comment May follow Fluid Glucose 179 H Fluid Total Protein 1.4 Fluid LDH 127 Fluid Comment 2 SEE COMMENT Miscellaneous Cytology Pending POC Glucose 10/18/19 10/19/19 10/19/19 17:40 00:21 03:30 WBC 14.0 H RBC 4.70 Hgb 14.9 Hct 45.5 MCV 96.8 H MCH 31.7 MCHC 32.7 RDW Std Deviation 48.1 H RDW Coeff of Xenia 13.4 Plt Count 106 L MPV 13.2 H Immature Gran % (Auto) 0.200 Neut % (Auto) 90.2 H Lymph % (Auto) 2.8 L [place] % (Auto) 6.7 Eos % (Auto) 0.0 Baso % (Auto) 0.1 Absolute Neuts (auto) 12.6 H Absolute Lymphs (auto) 0.39 L Nucleated RBC % 0.7 Differential Comment SCANNED PT INR APTT Specimen Type Sample Site O2 % VBG pH VBG pH (Temp Correct) VBG pCO2 (Temp Corrct VBG pO2 VBG O2 Sat (Calc) VBG O2 Content VBG Base Excess POC Mix VBG pCO2 Pt Tmp Liter Flow Blood Gas Notified Whom Blood Gas Notified Time Sodium Potassium Chloride Carbon Dioxide Anion Gap BUN Creatinine Estim Creat Clear Calc Est GFR (MDRD) Af Amer Est GFR (MDRD) Non-Af BUN/Creatinine Ratio Glucose Hemoglobin A1c Calcium Total Bilirubin AST ALT Alkaline Phosphatase Ammonia Lactate Dehydrogenase Total Protein Albumin Globulin Albumin/Globulin Ratio Fluid Source Fluid Color Fluid Appearance Fluid WBC Fluid RBC Fluid Tot Cell Count Fld Polynuclear WBCs # Fld Polynuclear WBCs % Fluid Mononuclear WBCs Fld Mononuclear WBCs % Fluid Neutrophils Fluid Lymphocytes Fluid Monocytes Fluid Macrophages Fl Pathologist Comment Fluid Glucose Fluid Total Protein Fluid LDH Fluid Comment 2 Miscellaneous Cytology POC Glucose 217 H 189 H 10/19/19 10/19/19 10/19/19 03:30 05:58 08:15 WBC RBC Hgb Hct MCV MCH MCHC RDW Std Deviation RDW Coeff of Xenia Plt Count MPV Immature Gran % (Auto) Neut % (Auto) Lymph % (Auto) [place] % (Auto) Eos % (Auto) Baso % (Auto) Absolute Neuts (auto) Absolute Lymphs (auto) Nucleated RBC % Differential Comment PT 19.8 H INR 1.7 APTT 24.0 L Specimen Type Sample Site O2 % VBG pH VBG pH (Temp Correct) VBG pCO2 (Temp Corrct VBG pO2 VBG O2 Sat (Calc) VBG O2 Content VBG Base Excess POC Mix VBG pCO2 Pt Tmp Liter Flow Blood Gas Notified Whom Blood Gas Notified Time Sodium 147 H Potassium 4.1 Chloride 114 H Carbon Dioxide 23.0 Anion Gap 10 BUN 56 H Creatinine 1.10 Estim Creat Clear Calc 52.50 Est GFR (MDRD) Af Amer 85 Est GFR (MDRD) Non-Af 70 BUN/Creatinine Ratio 50.9 H Glucose 203 H Hemoglobin A1c Calcium 8.4 L Total Bilirubin 1.70 H AST 1657 H ALT 1217 H Alkaline Phosphatase 80 Ammonia Lactate Dehydrogenase Total Protein 6.4 Albumin 3.1 L Globulin 3.3 Albumin/Globulin Ratio 0.9 Fluid Source Fluid Color Fluid Appearance Fluid WBC Fluid RBC Fluid Tot Cell Count Fld Polynuclear WBCs # Fld Polynuclear WBCs % Fluid Mononuclear WBCs Fld Mononuclear WBCs % Fluid Neutrophils Fluid Lymphocytes Fluid Monocytes Fluid Macrophages Fl Pathologist Comment Fluid Glucose Fluid Total Protein Fluid LDH Fluid Comment 2 Miscellaneous Cytology POC Glucose 195 H 10/19/19 08:15 WBC RBC Hgb Hct MCV MCH MCHC RDW Std Deviation RDW Coeff of Xenia Plt Count MPV Immature Gran % (Auto) Neut % (Auto) Lymph % (Auto) [place] % (Auto) Eos % (Auto) Baso % (Auto) Absolute Neuts (auto) Absolute Lymphs (auto) Nucleated RBC % Differential Comment PT INR APTT Specimen Type Sample Site O2 % VBG pH VBG pH (Temp Correct) VBG pCO2 (Temp Corrct VBG pO2 VBG O2 Sat (Calc) VBG O2 Content VBG Base Excess POC Mix VBG pCO2 Pt Tmp Liter Flow Blood Gas Notified Whom Blood Gas Notified Time Sodium Potassium Chloride Carbon Dioxide Anion Gap BUN Creatinine Estim Creat Clear Calc Est GFR (MDRD) Af Amer Est GFR (MDRD) Non-Af BUN/Creatinine Ratio Glucose Hemoglobin A1c Calcium Total Bilirubin AST ALT Alkaline Phosphatase Ammonia < 10.0 L Lactate Dehydrogenase Total Protein Albumin Globulin Albumin/Globulin Ratio Fluid Source Fluid Color Fluid Appearance Fluid WBC Fluid RBC Fluid Tot Cell Count Fld Polynuclear WBCs # Fld Polynuclear WBCs % Fluid Mononuclear WBCs Fld Mononuclear WBCs % Fluid Neutrophils Fluid Lymphocytes Fluid Monocytes Fluid Macrophages Fl Pathologist Comment Fluid Glucose Fluid Total Protein Fluid LDH Fluid Comment 2 Miscellaneous Cytology POC Glucose Microbiology 10/14/19 00:38 Blood Culture (Wb) - Right Hand Blood Culture - Final No growth in 5 days. 10/14/19 00:40 Blood Culture (Wb) - Anticubital Left Blood Culture - Final No growth in 5 days. 10/18/19 14:20 Fluid - Thoracentesis Fluid Gram Stain - Final 10/14/19 Unknown Sputum, Induced/Lukens Gram Stain - Final 10/14/19 Unknown Sputum, Induced/Lukens Respiratory Culture - Final Strep not Strep pneumo Clinical Impression(s) from Imaging Studies Liver Ultrasound 10/18/19 09:51 IMPRESSION: Normal right upper quadrant ultrasound examination. Electronically Signed: Flaco Gale, at 15:17 EDT , Service support , Chest X-Ray 10/18/19 10:50 IMPRESSION: Stable examination. Electronically Signed: Flaco Gale, at 11:58 EDT , Service support , Chest X-Ray 10/18/19 14:15 IMPRESSION: Status post left thoracentesis. There is no evidence of pneumothorax. Electronically Signed: Flaco Gale, at 15:16 EDT , Service support , Thoracentesis Ultrasound 10/18/19 14:47 IMPRESSION: Ultrasound-guided left thoracentesis. Electronically Signed: Flaco Gale, at 14:59 EDT , Service support , Medical Necessity - Tobacco Use Smoking Status: Former smoker Tobacco Use: Non-smoker Assessment/Plan All Active Problems (Last Reviewed 07/15/18 @ 16:45 by April Hyatt) Severe sepsis (Acute) Acute on chronic respiratory failure with hypoxia (Acute) COPD exacerbation (Acute) Bilateral pneumonia (Acute) Suspected 2019 novel coronavirus infection (Acute) Pneumonia of both lower lobes (Acute) Respiratory failure (Acute) Bronchitis (Acute) URI (upper respiratory infection) (Acute) Sinusitis, acute maxillary (Acute) RECOMMENDATIONS: 1. Continue to wean supplemental oxygen to maintain saturations at or above 90%. 2. Obtain therapeutic thoracentesis on the right 3. Continue bronchodilators and IV steroids. 4. Encourage incentive spirometer use and mobilize patient as tolerated. 5. Continue empiric antimicrobials per infectious diseases recommendations. 6. Aggressive blood pressure control 7. Await acute hepatitis panel 8. Obtain right upper quadrant ultrasound IMPRESSIONS: 1. Acute hypoxemic respiratory failure Likely secondary to COPD with exacerbation precipitated by bilateral lower lobe pneumonia. COVID testing was negative. The patient improved initially with supportive measures including invasive mechanical ventilatory support, antimicrobials, bronchodilators and steroids. He was able to be extubated on the morning of October 14. CT scan of the left chest has produced significant improvement in oxygenation. This should be repeated on the right given patient's relative resistance to diuresis. Thoracentesis was consistent with a transudate physiology. No labs need to be sent on repeat thoracentesis. 2. Severe sepsis Improved from a hemodynamic standpoint. Appears to be secondary to underlying pulmonary infectious process. Continue current supportive measures and antimicrobials as noted above. 3. Coronary artery disease status post CABG/hypertensive emergency Continue outpatient cardiac medication regimen. Patient was significant tachycardia and hypertension noted. Recommend aggressive blood pressure control. Significant tachycardia could be exacerbating diastolic dysfunction. Patient currently is n.p.o. secondary to respiratory status. We will schedule labetalol. May add hydralazine scheduled IV moving forward. Attempt to improve blood pressure today with thoracentesis tomorrow. 4. Chronic alcohol dependency/chronic pain syndrome/anxiety/depression/hypertension/hyperlipidemia/acute hepatitis Complicates care, management, recovery and prognosis. Continue home medications as indicated. TIME: 31 minutes of critical care time spent addressing patient's acute hypoxic respiratory failure, hypertensive emergency, review of all data and collaboration with care team (6 AM to 7:30 AM) [phone] [id number] Critical care first hour
[2019-10-19] MEDS: Haloperidol Lactate 5 MG/ML Vial IV ×2 (10:28→20:57)
--- NOTE | 2019-10-19 10:45 | CASEMGMT ---
Social Work Note SW participated in ICU rounds. Pt remains in restraints, received Haldol last night, will likely need SNF at discharge. Pt would need to be sitter free, restraint free, Haldol free for 24 hours before a SNF would review referral. SW to continue to follow in the event SNF is needed at discharge. Plan: EDMUNDO. GABINO VILLA and SW to continue to follow.
[2019-10-19] MEDS: Enoxaparin 40 MG/0.4 ML Syringe SC (10:53)
[2019-10-19 10:54] LABS: Pathologist Comment/Body Fluid Reviewed
[2019-10-19 12:25] LABS: Bedside Glucose 149 mg/dL (70-110)
--- NOTE | 2019-10-19 14:46 | PN.ID_ITS ---
Patient Problems: Active and Suspected Problems (Last Reviewed 07/15/18 @ 16:45 by April Hyatt) Severe sepsis (Acute) Acute on chronic respiratory failure with hypoxia (Acute) COPD exacerbation (Acute) Bilateral pneumonia (Acute) Suspected 2019 novel coronavirus infection (Acute) Pneumonia of both lower lobes (Acute) Respiratory failure (Acute) Subjective: In icu, on nippv, no fever - Physical Exam Vitals/I&O's: Vital Signs Temp Pulse Resp BP Pulse Ox 97.2 F L 118 H 28 H 152/92 H 100 10/19/19 08:00 10/19/19 11:15 10/19/19 11:15 10/19/19 08:00 10/19/19 08:00 Oxygen Flow Rate (L/min) 11 Oxygen Delivery Method Bi-pap Weight: 60.6 kg Body Mass Index (BMI) 21.5 Intake and Output for Last 24 Hours 10/17/19 10/18/19 10/19/19 23:59 23:59 23:59 Intake Total 250.75 / 250.75 1524.25 / 1524.25 855 / 855 Output Total 600 / 600 Balance -349.25 / -349.25 1524.25 / 1524.25 855 / 855 General: Non-Cooperative Lungs: Diminished, Rhonchi Cardiovascular: Regular rate, Regular Rhythm Abdomen: Soft, Non Tender, Non-Distended Skin: No rashes Microbiology Past 72 Hours 10/18/19 14:20 Fluid - Thoracentesis Fluid Gram Stain - Final 10/18/19 14:20 Fluid - Thoracentesis Fluid Body Fluid Culture - Preliminary No growth-Final to follow 10/14/19 00:38 Blood Culture (Wb) - Right Hand Blood Culture - Final No growth in 5 days. 10/14/19 00:40 Blood Culture (Wb) - Anticubital Left Blood Culture - Final No growth in 5 days. 10/14/19 Unknown Sputum, Induced/Lukens Gram Stain - Final 10/14/19 Unknown Sputum, Induced/Lukens Respiratory Culture - Final Strep not Strep pneumo Laboratory Results 10/18/19 11:30: Specimen Type CRISTO, Sample Site R BRACHIAL, O2 % 91, VBG pH 7.52 H, VBG pH (Temp Correct) TNP, VBG pCO2 (Temp Corrct TNP, VBG pO2 36, VBG O2 Sat (Calc) 76 H, VBG O2 Content 25, VBG Base Excess 1, POC Mix VBG pCO2 Pt Tmp 30.1 L, Liter Flow 55.0, Blood Gas Notified Whom [facility] , Blood Gas Notified Time 1130 10/18/19 14:20: Fluid Glucose 179 H, Fluid Total Protein 1.4, Fluid LDH 127 10/18/19 14:20: Fluid Source THORACENTESIS, Fluid Color LT YEL, Fluid Appearance CLEAR, Fluid WBC 0.136, Fluid RBC 130, Fluid Tot Cell Count 0.137, Fld Polynuclear WBCs # 0.012, Fld Polynuclear WBCs % 8.8, Fluid Mononuclear WBCs 0.124, Fld Mononuclear WBCs % 91.2, Fluid Neutrophils 14, Fluid Lymphocytes 84, Fluid Monocytes 1, Fluid Macrophages 1, Fl Pathologist Comment Reviewed, Fluid Comment 2 SEE COMMENT 10/18/19 17:40: POC Glucose 217 H 10/19/19 00:21: POC Glucose 189 H 10/19/19 03:30: WBC 14.0 H, RBC 4.70, Hgb 14.9, Hct 45.5, MCV 96.8 H, MCH 31.7, MCHC 32.7, RDW Std Deviation 48.1 H, RDW Coeff of Xenia 13.4, Plt Count 106 L, MPV 13.2 H, Immature Gran % (Auto) 0.200, Neut % (Auto) 90.2 H, Lymph % (Auto) 2.8 L , [place] % (Auto) 6.7, Eos % (Auto) 0.0, Baso % (Auto) 0.1, Absolute Neuts (auto) 12.6 H, Absolute Lymphs (auto) 0.39 L, Nucleated RBC % 0.7, Differential Comment SCANNED 10/19/19 03:30: Sodium 147 H, Potassium 4.1, Chloride 114 H, Carbon Dioxide 23.0, Anion Gap 10, BUN 56 H, Creatinine 1.10, Estim Creat Clear Calc 52.50, Est GFR (MDRD) Af Amer 85, Est GFR (MDRD) Non-Af 70, BUN/Creatinine Ratio 50.9 H, Glucose 203 H, Calcium 8.4 L, Total Bilirubin 1.70 H, AST 1657 H, ALT 1217 H, Alkaline Phosphatase 80, Total Protein 6.4, Albumin 3.1 L, Globulin 3.3, Albumin/Globulin Ratio 0.9 10/19/19 05:58: POC Glucose 195 H 10/19/19 08:15: PT 19.8 H, INR 1.7, APTT 24.0 L 10/19/19 08:15: Ammonia < 10.0 L 10/19/19 12:20: POC Glucose 149 H Current Medications Acetaminophen (Tylenol) 650 mg PO Q6H PRN PRN PRN Reason: Pain Score 1-10/Temp > 100.7 F Al Hydroxide/Mg Hydroxide (Mylanta Ii) 30 ml PO Q6H PRN PRN PRN Reason: Gastric Burning Albuterol Sulfate (Ventolin Aerosols) 2.5 mg INHALATION Q2H PRN PRN PRN Reason: Dyspnea, wheezing Last Admin: 10/16/19 14:35 Dose: 2.5 mg Documented by: Albuterol/Ipratropium (Duoneb) 3 ml INHALATION Q4HWA.RT [facility] Last Admin: 10/19/19 07:11 Dose: 3 ml Documented by: Aspirin (Aspirin, Baby) 81 mg PO DAILY [facility] Last Admin: 10/19/19 10:41 Dose: Not Given Documented by: Atorvastatin Calcium (Lipitor) 10 mg GT QHS [facility] Last Admin: 10/18/19 19:33 Dose: Not Given Documented by: Bupropion HCl (Wellbutrin Sr (150mg Tablets)) 150 mg PO DAILY [facility] Last Admin: 10/19/19 10:21 Dose: Not Given Documented by: Clopidogrel Bisulfate (Plavix) 75 mg PO DAILY [facility] Last Admin: 10/19/19 10:42 Dose: Not Given Documented by: Dextrose (D50w Syringe) 0 gm IV X1 PRN; Protocol PRN Reason: Hypoglycemia Dicyclomine HCl (Bentyl) 20 mg PO Q6H PRN PRN PRN Reason: abdominal discomfort Enoxaparin Sodium (Lovenox) 40 mg SC DAILY [facility] Last Admin: 10/19/19 10:53 Dose: 40 mg Documented by: Glucagon () 1 mg IM .X1 PRN PRN Reason: Hypoglycemia Guaifenesin (Robitussin) 10 ml PO Q4H PRN PRN PRN Reason: COUGH Sodium Chloride () 250 mls @ 15 mls/hr IV .[id number] PRN PRN Reason: Saline Flush Last Admin: 10/15/19 12:00 Dose: 15 mls/hr Documented by: Sodium Chloride () 250 mls @ 15 mls/hr IV .[id number] PRN PRN Reason: Additional IVPB Infusion Cefepime HCl 2 gm/ Sodium (Chloride) 100 mls @ 200 mls/hr IV Q12 [facility] Last Infusion: 10/19/19 12:22 Dose: Infused Documented by: Insulin Human Lispro (Humalog Kwikpen (Bkc)) 0 unit SC Q6 [facility]; Protocol Last Admin: 10/19/19 12:20 Dose: Not Given Documented by: Labetalol HCl (Trandate) 10 mg IV Q4 [facility] Last Admin: 10/19/19 12:12 Dose: 10 mg Documented by: Loperamide HCl (Imodium) 2 mg PO Q4H PRN PRN PRN Reason: LOOSE STOOLS Magnesium Hydroxide (Milk Of Magnesia) 30 ml PO DAILY PRN PRN PRN Reason: Constipation Methylprednisolone (Solu-Medrol) 40 mg IV Q8 [facility] Last Admin: 10/19/19 12:19 Dose: 40 mg Documented by: Morphine Sulfate () 2 mg IV Q2H PRN PRN PRN Reason: Pain Score 6-10/10 Multivitamins/Minerals ([facility]ivitamin With Minerals (Bkc)) [facility] Last Admin: 10/19/19 10:41 Dose: Not Given Documented by: Nitroglycerin (Nitrostat) 0.4 mg SUBLINGUAL Q5M PRN PRN Reason: CARDIAC/CHEST PAIN Psyllium Hydrophilic Mucilloid (Metamucil) 1 packet PO DAILY PRN PRN PRN Reason: Constipation Ranolazine (Ranexa) 1,000 mg PO DAILY [facility] Last Admin: 10/19/19 10:20 Dose: Not Given Documented by: Senna/Docusate Sodium (Senokot-S, Ami-Colace) 2 tablet PO BID PRN PRN PRN Reason: Constipation Sodium Chloride () 10 - 40 ml IV UD PRN PRN Reason: SALINE FLUSH Last Admin: 10/19/19 10:29 Dose: 10 ml Documented by: Trazodone HCl (Desyrel) 100 mg PO QHS PRN PRN Reason: INSOMNIA Medical Necessity - Tobacco Use Smoking Status: Former smoker Tobacco Use: Non-smoker Route of nutrition/ use of supplements: [] Nutritional Intake: [] IV Site: [] Moreira Catheter: [] - Assessment/Plan Antibiotics: [] Assessment/Plan: [] Active and Suspected Problems (Last Reviewed 07/15/18 @ 16:45 by April Hyatt) Severe sepsis (Acute) Acute on chronic respiratory failure with hypoxia (Acute) COPD exacerbation (Acute) Bilateral pneumonia (Acute) Suspected 2018 novel coronavirus infection (Acute) Pneumonia of both lower lobes (Acute) Respiratory failure (Acute) Subjective fever at home, reported chest pain, hypoxia, cough. COVID neg. Abx broadened from ceftriaxone to meropenem 10/15, now with high AST/ALT/LDH. No other clear cause of LFTs, now on cefepime. Lungs sound better and O2 much improved. Will follow
[2019-10-19 16:51] LABS: Bedside Glucose 163 mg/dL (70-110)
[2019-10-19] MEDS: Morphine 2 MG/ML Syringe IV (21:51)
[2019-10-20] VITALS (32 sets, daily range): BP systolic 114–162; BP diastolic 70–132; PULSE 93–115; RESP 12–35; TEMP 36.7–37.1; O2SAT 92–100; BMI 19.7
[2019-10-20 00:06] LABS: Bedside Glucose 145 mg/dL (70-110)
--- NOTE | 2019-10-20 01:30 | US_ITS ---
PROCEDURE: ULTRASOUND GUIDED THORACENTESIS - LEFT CLINICAL HISTORY: Male, 68 years old. Left pleural effusion CONSENT: The risks, benefits and alternatives to the procedure were explained to the patient, and the patient agreed to the procedure and signed the consent. STERILE BARRIER TECHNIQUE: The following sterile barrier precautions were used during the procedure: hand hygiene; use of 2% chlorhexidine aseptic; use of a cap, mask, sterile gown, sterile gloves, sterile full body drape, and a large sterile sheet. SEDATION: Local anesthesia TECHNIQUE: Under the ultrasound guidance using all elements of maximum sterile technique and after infiltration of the skin and subcutaneous soft tissues with 10 mL of lidocaine 1% a 5 [place] drainage catheter is introduced in the lower part of the left hemithorax. 350 mL of fluid were removed sample sent to lab for evaluation. The patient tolerated the procedure there was no immediate complication. US/Thoracentesis W US IMPRESSION: Successful ultrasound-guided left thoracentesis. Electronically Signed: Temi Richards, at 10:46 EDT Tel , Service support ,
[2019-10-20 04:19] LABS: Absolute Lymphocyte Count 0.28 X10^3/uL (0.83-4.51); Absolute Neutrophil Count 14.3 X10^3/uL (2.0-7.7); Basophil# 0.02 X10^3/uL; Basophil% 0.1 % (0-1); Hematocrit 44.9 % (40-54); Hemoglobin 14.5 g/dL (13.0-16.5); Lymphocyte # 0.28 X10^3/ul (4.0); Lymphocyte % 1.8 % (19-41); Mean Corp Hgb Conc 32.3 g/dL (32-36); Mean Corpuscular Hgb 31.7 pg (27.0-32.0); Monocyte# 0.96 X10^3/uL; Monocyte% 6.2 % (0-10); NRBC Flagged by Analyzer 2.8 % (0-5); Neutrophil # 14.25 X10^3/uL (2.7-7.7); Neutrophil % 91.3 % (47-70); POSITIVE COUNT YES; POSITIVE DIFFERENTIAL YES; Platelet Count 75 K/mm3 (150-450); RBC Distribution Width CV 13.4 % (11.6-14.6); RBC Distribution Width SD 47.9 fl (35.1-43.9); Red Blood Count 4.58 M/mm3 (4.6-6.2); White Blood Count 15.6 K/mm3 (4.4-11.0)
[2019-10-20 04:20] LABS: Differential Indicated SCAN CRITERIA MET
[2019-10-20 04:34] LABS: ALB/GLOB Ratio 1.1 RATIO (0.9-2.4); AST(SGOT) 1493 U/L (15-37); Alanine Aminotransfer ALT/SGPT 1419 U/L (16-61); Albumin, Serum 3.1 g/dL (3.2-5.0); Alkaline Phosphatase 96 U/L (45-117); Anion Gap 10 (5-15); BUN 66 mg/dL (7-18); BUN/Creat Ratio 58.4 RATIO (10-20); Calcium,Total 8.4 mg/dL (8.5-10.1); Chloride 120 mmol/L (98-107); Creatinine, Serum 1.13 mg/dL (0.70-1.30); EST Glomerular Filtration Rate 68 mL/min (>60); Est Glom Filt Rate - Afr Amer 82 mL/min (>60); Estimated Creatinine Clearance 52.14 ml/min; Globulin 2.9 g/dL (2.2-4.2); Glucose 172 mg/dL (74-106); Potassium 4.2 mmol/L (3.5-5.1); Sodium Level 154 mmol/L (136-145)
[2019-10-20 04:47] LABS: Differential Comment SCANNED; Platelet Estimate MOD DEC (ADEQ); Reactive Lymphocyte RARE
[2019-10-20] MEDS: Insulin Lispro 100 UNIT/ML INSULN.PEN SC ×3 (05:20→23:39)
[2019-10-20] MEDS: 0.9% Saline Lock 10 ML Syringe IV ×4 (05:22→23:40)
[2019-10-20 05:36] LABS: Bedside Glucose 152 mg/dL (70-110)
[2019-10-20] MEDS: Ipratropium/Albuterol Sulfate 3 ML AMPUL.NEB INHALATION ×4 (06:32→19:30)
--- NOTE | 2019-10-20 07:48 | PN_ITS ---
Patient Problems: Active and Suspected Problems (Last Reviewed 07/15/18 @ 16:45 by April Hyatt) Severe sepsis (Acute) Acute on chronic respiratory failure with hypoxia (Acute) COPD exacerbation (Acute) Bilateral pneumonia (Acute) Suspected 2019 novel coronavirus infection (Acute) Pneumonia of both lower lobes (Acute) Respiratory failure (Acute) Reason for Visit: Follow-up on respiratory distress/severe sepsis secondary to pneumonia Subjective: Patient was seen and examined. He remains confused. Oxygenation has improved with 4L oxygen. He is unable to answer questions Objective: Physical exam: General: Alert, Confused, on 4L oxygen HEENT: Atraumatic, PERRLA, EOMI, Normocephalic Oral: Moist Mucosa Neck: Supple Lungs: Clear to auscultation, Normal air movement Cardiovascular: Regular rate, Regular Rhythm, Normal S1, Normal S2, No murmurs Abdomen: Bowel Sounds Present, Soft, Non Tender, Non-Distended, No Hepato-splen omegaly Extremities: No edema Skin: No rashes, No breakdown Musculoskeletal: No Tenderness to Palpation of Joints or Extremities Lymphatic: No Cervical, Supraclavicular, or Inguinal Adenopathy Neurological: Cranial nerves II-XII grossly intact, Neuro grossly intact Psych/Mental Status: Normal Affect, Appropriate Vitals/I&O's: Vital Signs Temp Pulse Resp BP Pulse Ox 98.2 F 100 14 148/91 H 95 10/20/19 00:00 10/20/19 07:00 10/20/19 07:00 10/20/19 07:00 10/20/19 06:42 Oxygen Flow Rate (L/min) 4 Oxygen Delivery Method Nasal Cannula Weight: 55.4 kg Body Mass Index (BMI) 21.5 Intake and Output for Last 24 Hours 10/18/19 10/19/19 10/20/19 23:59 23:59 23:59 Intake Total 1524.25 / 1524.25 1205 / 1205 Balance 1524.25 / 1524.25 1205 / 1205 Microbiology Past 72 Hours 10/18/19 14:20 Fluid - Thoracentesis Fluid Gram Stain - Final 10/18/19 14:20 Fluid - Thoracentesis Fluid Body Fluid Culture - Preliminary No growth-Final to follow 10/14/19 00:38 Blood Culture (Wb) - Right Hand Blood Culture - Final No growth in 5 days. 10/14/19 00:40 Blood Culture (Wb) - Anticubital Left Blood Culture - Final No growth in 5 days. 10/14/19 Unknown Sputum, Induced/[place] Gram Stain - Final 10/14/19 Unknown Sputum, Induced/[place] Respiratory Culture - Final Strep not Strep pneumo Laboratory Results 10/18/19 14:20: Fl Pathologist Comment Reviewed 10/19/19 05:58: POC Glucose 195 H 10/19/19 08:15: PT 19.8 H, INR 1.7, APTT 24.0 L 10/19/19 08:15: Ammonia < 10.0 L 10/19/19 12:20: POC Glucose 149 H 10/19/19 16:46: POC Glucose 163 H 10/20/19 00:02: POC Glucose 145 H 10/20/19 03:55: Sodium 154 H, Potassium 4.2, Chloride 120 H, Carbon Dioxide 24.0, Anion Gap 10, BUN 66 H, Creatinine 1.13, Estim Creat Clear Calc 52.14, Est GFR (MDRD) Af Amer 82, Est GFR (MDRD) Non-Af 68, BUN/Creatinine Ratio 58.4 H, Glucose 172 H, Calcium 8.4 L, Total Bilirubin 3.10 H, AST 1493 H, ALT 1419 H, Alkaline Phosphatase 96, Total Protein 6.0 L, Albumin 3.1 L, Globulin 2.9, Albumin/Globulin Ratio 1.1 10/20/19 03:55: WBC 15.6 H, RBC 4.58 L, Hgb 14.5, Hct 44.9, MCV 98.0 H, MCH 31.7, MCHC 32.3, RDW Std Deviation 47.9 H, RDW Coeff of Xenia 13.4, Plt Count 75 L , MPV 14.0 H, Immature Gran % (Auto) 0.600, Neut % (Auto) 91.3 H, Lymph % (Auto) 1.8 L, [place] % (Auto) 6.2, Eos % (Auto) 0.0, Baso % (Auto) 0.1, Absolute Neuts (auto) 14.3 H, Absolute Lymphs (auto) 0.28 L, Nucleated RBC % 2.8, Differential Comment SCANNED, Reactive Lymphocytes RARE, Platelet Estimate MOD 10/20/19 05:18: POC Glucose 152 H Current Medications Acetaminophen (Tylenol) 650 mg PO Q6H PRN PRN PRN Reason: Pain Score 1-10/Temp > 100.7 F Al Hydroxide/Mg Hydroxide (Mylanta Ii) 30 ml PO Q6H PRN PRN PRN Reason: Gastric Burning Albuterol Sulfate (Ventolin Aerosols) 2.5 mg INHALATION Q2H PRN PRN PRN Reason: Dyspnea, wheezing Last Admin: 10/16/19 14:35 Dose: 2.5 mg Documented by: Albuterol/Ipratropium (Duoneb) 3 ml INHALATION Q4HWA.RT [facility] Last Admin: 10/20/19 06:32 Dose: 3 ml Documented by: Aspirin (Aspirin, Baby) 81 mg PO DAILY [facility] Last Admin: 10/19/19 10:41 Dose: Not Given Documented by: Atorvastatin Calcium (Lipitor) 10 mg GT QHS [facility] Last Admin: 10/19/19 21:05 Dose: Not Given Documented by: Bupropion HCl (Wellbutrin Sr (150mg Tablets)) 150 mg PO DAILY [facility] Last Admin: 10/19/19 10:21 Dose: Not Given Documented by: Clopidogrel Bisulfate (Plavix) 75 mg PO DAILY [facility] Last Admin: 10/19/19 10:42 Dose: Not Given Documented by: Dextrose (D50w Syringe) 0 gm IV X1 PRN; Protocol PRN Reason: Hypoglycemia Dicyclomine HCl (Bentyl) 20 mg PO Q6H PRN PRN PRN Reason: abdominal discomfort Enoxaparin Sodium (Lovenox) 40 mg SC DAILY [facility] Last Admin: 10/19/19 10:53 Dose: 40 mg Documented by: Glucagon () 1 mg IM .X1 PRN PRN Reason: Hypoglycemia Guaifenesin (Robitussin) 10 ml PO Q4H PRN PRN PRN Reason: COUGH Haloperidol Lactate (Haldol) 5 mg IV Q6H PRN PRN PRN Reason: AGITATION Last Admin: 10/19/19 20:57 Dose: 5 mg Documented by: Sodium Chloride () 250 mls @ 15 mls/hr IV .[id number] PRN PRN Reason: Saline Flush Last Infusion: 10/19/19 19:00 Dose: Infused Documented by: Sodium Chloride () 250 mls @ 15 mls/hr IV .[id number] PRN PRN Reason: Additional IVPB Infusion Cefepime HCl 2 gm/ Sodium (Chloride) 100 mls @ 200 mls/hr IV Q12 [facility] Last Infusion: 10/19/19 23:14 Dose: Infused Documented by: Insulin Human Lispro (Humalog Kwikpen (Bk)) 0 unit SC Q6 [facility]; Protocol Last Admin: 10/20/19 05:20 Dose: 1 units Documented by: Labetalol HCl (Trandate) 10 mg IV Q4 [facility] Last Admin: 10/20/19 05:21 Dose: 10 mg Documented by: Loperamide HCl (Imodium) 2 mg PO Q4H PRN PRN PRN Reason: LOOSE STOOLS Magnesium Hydroxide (Milk Of Magnesia) 30 ml PO DAILY PRN PRN PRN Reason: Constipation Methylprednisolone (Solu-Medrol) 40 mg IV Q8 [facility] Last Admin: 10/20/19 05:20 Dose: 40 mg Documented by: Morphine Sulfate () 2 mg IV Q2H PRN PRN PRN Reason: Pain Score 6-10/10 Last Admin: 10/19/19 21:51 Dose: 2 mg Documented by: Multivitamins/Minerals (Multivitamin With Minerals (Bkc)) 1 tablet PO DAILYCM [facility] Last Admin: 10/19/19 10:41 Dose: Not Given Documented by: Nitroglycerin (Nitrostat) 0.4 mg SUBLINGUAL Q5M PRN PRN Reason: CARDIAC/CHEST PAIN Psyllium Hydrophilic Mucilloid (Metamucil) 1 packet PO DAILY PRN PRN PRN Reason: Constipation Ranolazine (Ranexa) 1,000 mg PO DAILY [facility] Last Admin: 10/19/19 10:20 Dose: Not Given Documented by: Senna/Docusate Sodium (Senokot-S, Ami-Colace) 2 tablet PO BID PRN PRN PRN Reason: Constipation Sodium Chloride () 10 - 40 ml IV UD PRN PRN Reason: SALINE FLUSH Last Admin: 10/20/19 05:22 Dose: 10 ml Documented by: Trazodone HCl (Desyrel) 100 mg PO QHS PRN PRN Reason: INSOMNIA STROKE Vital Signs/Narrative: Vital Signs Pulse Resp BP Pulse Ox 10/20/19 07:00 100 14 148/91 H 04/16/20 06:42 95 10/20/19 06:32 100 24 H 10/20/19 06:00 94 21 H 148/85 H 96 10/20/19 05:00 115 H 24 H 146/89 H Medical Necessity - Tobacco Use Smoking Status: Former smoker Tobacco Use: Non-smoker Assessment/Plan All Active Problems (Last Reviewed 07/15/18 @ 16:45 by April Hyatt) Severe sepsis (Acute) Acute on chronic respiratory failure with hypoxia (Acute) COPD exacerbation (Acute) Bilateral pneumonia (Acute) Suspected 2018 novel coronavirus infection (Acute) Pneumonia of both lower lobes (Acute) Respiratory failure (Acute) Bronchitis (Acute) URI (upper respiratory infection) (Acute) Sinusitis, acute maxillary (Acute) 1. Acute delirium, unclear etiology, persistent Multifactorial in etiology; hypoxia/opioid withdrawal/possible ICU delirium Less suspicious of alcohol withdrawal on account of history from his that since patient drinks [address] scan of brain negative for intracerebral bleed; cannot do a MRI because of vascular clips Ammonia is less than 10 On morphine prn, on bilateral soft wrist restraints as patient has been taking his Airvo off Will continue to monitor for oversedation 2. Acute hypoxic respiratory failure secondary to progressive bilateral pneumonia/aspiration pneumonia/bilateral pleural effusion status post extubation on 10/15/19, progressive improvement in oxygen requirements with decreasing level parameters Repeat CXR has persistent interstitial changes Status post thoracocentesis on the right yesterday, 10/18/19; suggestive of transudative cause from Lights criteria Going for left thoracocentesis today 3. Elevated LFTs, unclear etiology, likely medication related, increasing Off meropenem, currently on cefepime Previous LFTs and ultrasound of liver were normal Will continue to monitor 4. Severe sepsis secondary to bilateral pneumonia/ aspiration pneumonia On IV cefepime 2g Q8h 5. Dysphagia, likely secondary to acute illness/acute confusional state Kept NPO, aspiration precautions Will monitor, may need PPN/TPN 6. Hypertension, better controlled Continue on labetalol to 20 mg every 4h as needed 7. CAD status post CABG/hyperlipidemia/carotid artery stenosis/renal artery pseudoaneurysm/history of brain aneurysm Not been able to take aspirin, Plavix or beta-chantel 8. Anxiety/depression/chronic pain syndrome, on IV morphine now Home antidepressants on hold 9. DVT PPx- Lovenox SC 10. Code status - Full code Inpatient E&M: 17961 Subs Hosp L3
--- NOTE | 2019-10-20 07:52 | PN_ITS ---
Subjective: Patient did okay overnight from a hemodynamic standpoint. Patient is currently on nasal cannula. Patient has been very anxious overnight. Requiring frequent redirection and Haldol overnight. Objective: CT scan over last 24 hours was unremarkable. General: Alert, Confused, Disoriented, Non-Cooperative, - - Cachectic. HEENT: Atraumatic, PERRLA, EOMI, Normocephalic, - - Scleral injection without icterus Oral: No Gingival or Mucosal Lesions/ Ulcerations, Dry Mucosa Neck: Supple, No JVD, No Nodes, Trachea Midline Lungs: No rhonchi, No wheeze, Diminished - Right base, Rhonchi Cardiovascular: Normal S1, Normal S2, No murmurs, No rub noted, No Gallop, Tachycardic Abdomen: Bowel Sounds Present, Soft, Non Tender, Non-Distended Extremities: No clubbing, No edema, Cyanosis - Bilateral toes, - - Peripheral vascular insufficiency Skin: - - Venous insufficiency changes bilateral lower extremities Musculoskeletal: Cachexia, Muscle Wasting Lymphatic: No Cervical, Supraclavicular, or Inguinal Adenopathy Neurological: Cranial nerves II-XII grossly intact, Neuro grossly intact Psych/Mental Status: Anxious, Impulsive, Restless Vital Signs Temp Pulse Resp BP Pulse Ox 36.8 C 100 14 148/91 H 95 10/20/19 00:00 10/20/19 07:00 10/20/19 07:00 10/20/19 07:00 10/20/19 06:42 Oxygen Flow Rate (L/min) 4 Oxygen Delivery Method Nasal Cannula Weight: 55.4 kg Body Mass Index (BMI) 21.5 Intake and Output for Last 24 Hours 10/18/19 10/19/19 10/20/19 23:59 23:59 23:59 Intake Total 1524.25 / 1524.25 1205 / 1205 Balance 1524.25 / 1524.25 1205 / 1205 Labs (Last 48 Hours) 10/18/19 10/18/19 10/18/19 11:30 12:14 14:20 WBC RBC Hgb Hct MCV MCH MCHC RDW Std Deviation RDW Coeff of X[place] Plt Count MPV Immature Gran % (Auto) Neut % (Auto) Lymph % (Auto) [place] % (Auto) Eos % (Auto) Baso % (Auto) Absolute Neuts (auto) Absolute Lymphs (auto) Nucleated RBC % Differential Comment Reactive Lymphocytes Platelet Estimate PT INR APTT Specimen Type CRISTO Sample Site R BRACHIAL O2 % 91 VBG pH 7.52 H VBG pH (Temp Correct) TNP VBG pCO2 (Temp Corrct TNP VBG pO2 36 VBG O2 Sat (Calc) 76 H VBG O2 Content 25 VBG Base Excess 1 POC Mix VBG pCO2 Pt Tmp 30.1 L Liter Flow 55.0 Blood Gas Notified Whom [facility] Blood Gas Notified Time 1130 Sodium Potassium Chloride Carbon Dioxide Anion Gap BUN Creatinine Estim Creat Clear Calc Est GFR (MDRD) Af Amer Est GFR (MDRD) Non-Af BUN/Creatinine Ratio Glucose Calcium Total Bilirubin AST ALT Alkaline Phosphatase Ammonia Total Protein Albumin Globulin Albumin/Globulin Ratio Fluid Source Fluid Color Fluid Appearance Fluid WBC Fluid RBC Fluid Tot Cell Count Fld Polynuclear WBCs # Fld Polynuclear WBCs % Fluid Mononuclear WBCs Fld Mononuclear WBCs % Fluid Neutrophils Fluid Lymphocytes Fluid Monocytes Fluid Macrophages Fl Pathologist Comment Fluid Glucose 179 H Fluid Total Protein 1.4 Fluid LDH 127 Fluid Comment 2 Miscellaneous Cytology POC Glucose 189 H 10/18/19 10/18/19 10/18/19 14:20 14:20 17:40 WBC RBC Hgb Hct MCV MCH MCHC RDW Std Deviation RDW Coeff of [place] Plt Count MPV Immature Gran % (Auto) Neut % (Auto) Lymph % (Auto) [place] % (Auto) Eos % (Auto) Baso % (Auto) Absolute Neuts (auto) Absolute Lymphs (auto) Nucleated RBC % Differential Comment Reactive Lymphocytes Platelet Estimate PT INR APTT Specimen Type Sample Site O2 % VBG pH VBG pH (Temp Correct) VBG pCO2 (Temp Corrct VBG pO2 VBG O2 Sat (Calc) VBG O2 Content VBG Base Excess POC Mix VBG pCO2 Pt Tmp Liter Flow Blood Gas Notified Whom Blood Gas Notified Time Sodium Potassium Chloride Carbon Dioxide Anion Gap BUN Creatinine Estim Creat Clear Calc Est GFR (MDRD) Af Amer Est GFR (MDRD) Non-Af BUN/Creatinine Ratio Glucose Calcium Total Bilirubin AST ALT Alkaline Phosphatase Ammonia Total Protein Albumin Globulin Albumin/Globulin Ratio Fluid Source THORACENTESIS Fluid Color LT YEL Fluid Appearance CLEAR Fluid WBC 0.136 Fluid RBC 130 Fluid Tot Cell Count 0.137 Fld Polynuclear WBCs # 0.012 Fld Polynuclear WBCs % 8.8 Fluid Mononuclear WBCs 0.124 Fld Mononuclear WBCs % 91.2 Fluid Neutrophils 14 Fluid Lymphocytes 84 Fluid Monocytes 1 Fluid Macrophages 1 Fl Pathologist Comment Reviewed Fluid Glucose Fluid Total Protein Fluid LDH Fluid Comment 2 SEE COMMENT Miscellaneous Cytology Pending POC Glucose 217 H 10/19/19 10/19/19 10/19/19 00:21 03:30 03:30 WBC 14.0 H RBC 4.70 Hgb 14.9 Hct 45.5 MCV 96.8 H MCH 31.7 MCHC 32.7 RDW Std Deviation 48.1 H RDW Coeff of [place] 13.4 Plt Count 106 L MPV 13.2 H Immature Gran % (Auto) 0.200 Neut % (Auto) 90.2 H Lymph % (Auto) 2.8 L [place] % (Auto) 6.7 Eos % (Auto) 0.0 Baso % (Auto) 0.1 Absolute Neuts (auto) 12.6 H Absolute Lymphs (auto) 0.39 L Nucleated RBC % 0.7 Differential Comment SCANNED Reactive Lymphocytes Platelet Estimate PT INR APTT Specimen Type Sample Site O2 % VBG pH VBG pH (Temp Correct) VBG pCO2 (Temp Corrct VBG pO2 VBG O2 Sat (Calc) VBG O2 Content VBG Base Excess POC Mix VBG pCO2 Pt Tmp Liter Flow Blood Gas Notified Whom Blood Gas Notified Time Sodium 147 H Potassium 4.1 Chloride 114 H Carbon Dioxide 23.0 Anion Gap 10 BUN 56 H Creatinine 1.10 Estim Creat Clear Calc 52.50 Est GFR (MDRD) Af Amer 85 Est GFR (MDRD) Non-Af 70 BUN/Creatinine Ratio 50.9 H Glucose 203 H Calcium 8.4 L Total Bilirubin 1.70 H AST 1657 H ALT 1217 H Alkaline Phosphatase 80 Ammonia Total Protein 6.4 Albumin 3.1 L Globulin 3.3 Albumin/Globulin Ratio 0.9 Fluid Source Fluid Color Fluid Appearance Fluid WBC Fluid RBC Fluid Tot Cell Count Fld Polynuclear WBCs # Fld Polynuclear WBCs % Fluid Mononuclear WBCs Fld Mononuclear WBCs % Fluid Neutrophils Fluid Lymphocytes Fluid Monocytes Fluid Macrophages Fl Pathologist Comment Fluid Glucose Fluid Total Protein Fluid LDH Fluid Comment 2 Miscellaneous Cytology POC Glucose 189 H 10/19/19 10/19/19 10/19/19 05:58 08:15 08:15 WBC RBC Hgb Hct MCV MCH MCHC RDW Std Deviation RDW Coeff of [place] Plt Count MPV Immature Gran % (Auto) Neut % (Auto) Lymph % (Auto) [place] % (Auto) Eos % (Auto) Baso % (Auto) Absolute Neuts (auto) Absolute Lymphs (auto) Nucleated RBC % Differential Comment Reactive Lymphocytes Platelet Estimate PT 19.8 H INR 1.7 APTT 24.0 L Specimen Type Sample Site O2 % VBG pH VBG pH (Temp Correct) VBG pCO2 (Temp Corrct VBG pO2 VBG O2 Sat (Calc) VBG O2 Content VBG Base Excess POC Mix VBG pCO2 Pt Tmp Liter Flow Blood Gas Notified Whom Blood Gas Notified Time Sodium Potassium Chloride Carbon Dioxide Anion Gap BUN Creatinine Estim Creat Clear Calc Est GFR (MDRD) Af Amer Est GFR (MDRD) Non-Af BUN/Creatinine Ratio Glucose Calcium Total Bilirubin AST ALT Alkaline Phosphatase Ammonia < 10.0 L Total Protein Albumin Globulin Albumin/Globulin Ratio Fluid Source Fluid Color Fluid Appearance Fluid WBC Fluid RBC Fluid Tot Cell Count Fld Polynuclear WBCs # Fld Polynuclear WBCs % Fluid Mononuclear WBCs Fld Mononuclear WBCs % Fluid Neutrophils Fluid Lymphocytes Fluid Monocytes Fluid Macrophages Fl Pathologist Comment Fluid Glucose Fluid Total Protein Fluid LDH Fluid Comment 2 Miscellaneous Cytology POC Glucose 195 H 10/19/19 10/19/19 10/20/19 12:20 16:46 00:02 WBC RBC Hgb Hct MCV MCH MCHC RDW Std Deviation RDW Coeff of [place] Plt Count MPV Immature Gran % (Auto) Neut % (Auto) Lymph % (Auto) [place] % (Auto) Eos % (Auto) Baso % (Auto) Absolute Neuts (auto) Absolute Lymphs (auto) Nucleated RBC % Differential Comment Reactive Lymphocytes Platelet Estimate PT INR APTT Specimen Type Sample Site O2 % VBG pH VBG pH (Temp Correct) VBG pCO2 (Temp Corrct VBG pO2 VBG O2 Sat (Calc) VBG O2 Content VBG Base Excess POC Mix VBG pCO2 Pt Tmp Liter Flow Blood Gas Notified Whom Blood Gas Notified Time Sodium Potassium Chloride Carbon Dioxide Anion Gap BUN Creatinine Estim Creat Clear Calc Est GFR (MDRD) Af Amer Est GFR (MDRD) Non-Af BUN/Creatinine Ratio Glucose Calcium Total Bilirubin AST ALT Alkaline Phosphatase Ammonia Total Protein Albumin Globulin Albumin/Globulin Ratio Fluid Source Fluid Color Fluid Appearance Fluid WBC Fluid RBC Fluid Tot Cell Count Fld Polynuclear WBCs # Fld Polynuclear WBCs % Fluid Mononuclear WBCs Fld Mononuclear WBCs % Fluid Neutrophils Fluid Lymphocytes Fluid Monocytes Fluid Macrophages Fl Pathologist Comment Fluid Glucose Fluid Total Protein Fluid LDH Fluid Comment 2 Miscellaneous Cytology POC Glucose 149 H 163 H 145 H 10/20/19 10/20/19 10/20/19 03:55 03:55 05:18 WBC 15.6 H RBC 4.58 L Hgb 14.5 Hct 44.9 MCV 98.0 H MCH 31.7 MCHC 32.3 RDW Std Deviation 47.9 H RDW Coeff of [place] 13.4 Plt Count 75 L MPV 14.0 H Immature Gran % (Auto) 0.600 Neut % (Auto) 91.3 H Lymph % (Auto) 1.8 L [place] % (Auto) 6.2 Eos % (Auto) 0.0 Baso % (Auto) 0.1 Absolute Neuts (auto) 14.3 H Absolute Lymphs (auto) 0.28 L Nucleated RBC % 2.8 Differential Comment SCANNED Reactive Lymphocytes RARE Platelet Estimate MOD DEC PT INR APTT Specimen Type Sample Site O2 % VBG pH VBG pH (Temp Correct) VBG pCO2 (Temp Corrct VBG pO2 VBG O2 Sat (Calc) VBG O2 Content VBG Base Excess POC Mix VBG pCO2 Pt Tmp Liter Flow Blood Gas Notified Whom Blood Gas Notified Time Sodium 154 H Potassium 4.2 Chloride 120 H Carbon Dioxide 24.0 Anion Gap 10 BUN 66 H Creatinine 1.13 Estim Creat Clear Calc 52.14 Est GFR (MDRD) Af Amer 82 Est GFR (MDRD) Non-Af 68 BUN/Creatinine Ratio 58.4 H Glucose 172 H Calcium 8.4 L Total Bilirubin 3.10 H AST 1493 H ALT 1419 H Alkaline Phosphatase 96 Ammonia Total Protein 6.0 L Albumin 3.1 L Globulin 2.9 Albumin/Globulin Ratio 1.1 Fluid Source Fluid Color Fluid Appearance Fluid WBC Fluid RBC Fluid Tot Cell Count Fld Polynuclear WBCs # Fld Polynuclear WBCs % Fluid Mononuclear WBCs Fld Mononuclear WBCs % Fluid Neutrophils Fluid Lymphocytes Fluid Monocytes Fluid Macrophages Fl Pathologist Comment Fluid Glucose Fluid Total Protein Fluid LDH Fluid Comment 2 Miscellaneous Cytology POC Glucose 152 H Microbiology 10/18/19 14:20 Fluid - Thoracentesis Fluid Gram Stain - Final 04/14/20 14:20 Fluid - Thoracentesis Fluid Body Fluid Culture - Preliminary No growth-Final to follow 10/14/19 00:38 Blood Culture (Wb) - Right Hand Blood Culture - Final No growth in 5 days. 10/14/19 00:40 Blood Culture (Wb) - Anticubital Left Blood Culture - Final No growth in 5 days. Clinical Impression(s) from Imaging Studies Brain CT 10/19/19 08:23 IMPRESSION: Chronic involutional changes of the brain. Vascular clip is seen in the left [place] suggestion of prior clipping of an aneurysm. Electronically Signed: Flaco Gale, at 11:30 EDT , Service support , Medical Necessity - Tobacco Use Smoking Status: Former smoker Tobacco Use: Non-smoker Assessment/Plan All Active Problems (Last Reviewed 07/15/18 @ 16:45 by April Hyatt) Severe sepsis (Acute) Acute on chronic respiratory failure with hypoxia (Acute) COPD exacerbation (Acute) Bilateral pneumonia (Acute) Suspected 2019 novel coronavirus infection (Acute) Pneumonia of both lower lobes (Acute) Respiratory failure (Acute) Bronchitis (Acute) URI (upper respiratory infection) (Acute) Sinusitis, acute maxillary (Acute) RECOMMENDATIONS: 1. Continue to wean supplemental oxygen to maintain saturations at or above 90%. 2. Await therapeutic thoracentesis on the right 3. Continue bronchodilators and wean IV steroids. 4. Encourage incentive spirometer use and mobilize patient as tolerated. 5. Continue empiric antimicrobials per infectious diseases recommendations. 6. Aggressive blood pressure control 7. Initiate D5W for hypernatremia and hyperchloremia IMPRESSIONS: 1. Acute hypoxemic respiratory failure Likely secondary to COPD with exacerbation precipitated by bilateral lower lobe pneumonia. COVID testing was negative. The patient improved initially with supportive measures including invasive mechanical ventilatory support, antimicrobials, bronchodilators and steroids. He was able to be extubated on the morning of October 14. Thoracentesis of the left chest has produced significant improvement in oxygenation. This should be repeated on the right given patient's relative resistance to diuresis. Thoracentesis was consistent with a transudate physiology. No labs need to be sent on repeat thoracentesis. Continue to wean oxygen as tolerated. 2. Severe sepsis Improved from a hemodynamic standpoint. Appears to be secondary to underlying pulmonary infectious process. Continue current supportive measures and antimicrobials as noted above. 3. Coronary artery disease status post CABG/hypertensive emergency Continue outpatient cardiac medication regimen. Patient was significant tachycardia and hypertension noted. Recommend aggressive blood pressure control. Significant tachycardia could be exacerbating diastolic dysfunction. Patient currently is n.p.o. secondary to respiratory status. We will schedule labetalol. May add hydralazine scheduled IV moving forward. Attempt to improve blood pressure today with thoracentesis tomorrow. 4. Chronic alcohol dependency/chronic pain syndrome/anxiety/depression/hypertension/hyperlipidemia/acute hepatitis/delirium Complicates care, management, recovery and prognosis. Continue home medications as indicated. Unclear if delirium is secondary to withdrawal symptoms versus hyperchloremia/hypernatremia. Patient will be placed on D5W and monitor. TIME: 33 minutes of critical care time spent addressing patient's acute hypoxic respiratory failure, hypertensive emergency, review of all data and collaboration with care team (7 AM to 8 AM) [phone] [id number] Critical care first hour
--- NOTE | 2019-10-20 10:10 | CASEMGMT ---
Social Work Note SW participated in ICU rounds. Pt has some delirium, is down at thoracentesis. Pt is restraint free but is still receiving Haldol. Pt will likely need SNF at discharge. FLORIDALMA updated staff that SNF will not look at referral until pt is Haldol free, restraint free for 24 hours. Plan: TBD. Possible SNF. Pt must be Haldol free for 24 hours before SNF will look at referral for pt Dulce Mccord [employer], [employer]
--- NOTE | 2019-10-20 10:59 | RAD_ITS ---
STUDY: X-RAY CHEST REASON FOR EXAM: Male, 68 years old. post thoracentesis TECHNIQUE: Single AP portable view of the chest. COMPARISON: 10/18/2019 FINDINGS: Increased interstitial markings are seen in the perihilar regions and lung bases bilaterally are improved since the previous study suggesting resolving pulmonary edema. Markedly decreased right pleural effusion. Resolved left pleural effusion. There is no evidence of pneumothorax. Normal size heart. Normal mediastinum and taco. Normal visualized pulmonary arteries. There is atherosclerotic calcification of the aortic arch with tortuosity. There is demineralization of the osseous structures. There is degenerative osteoarthritis of the bilateral shoulders. There is no demonstrated abnormality of the visualized soft tissue structures of the upper abdomen. RAD/Chest 1 View (Portable) IMPRESSION: Markedly decreased right pleural effusion. Resolved left pleural effusion. There is no evidence of pneumothorax. Electronically Signed: Temi Richards, at 12:11 EDT Tel , Service support ,
--- NOTE | 2019-10-20 11:03 | NT.THERAPY_ITS ---
Nutrition Therapy Report - History Current diet / nutrition support order:: NPO - Anthropometric Measurements Height:: 5 ft 6 in Weight:: 55.4 kg Body Mass Index (BMI):: 19.7 - Relevant Labs Relevant Labs:: WBC 15.6 K/mm3 (4.4-11.0) H 10/20/19 03:55 RBC 4.58 M/mm3 (4.6-6.2) L 10/20/19 03:55 Hgb 12.7 g/dL (13.0-16.5) L 10/15/19 04:10 Hct 38.8 % (40-54) L 10/15/19 04:10 MCV 98.0 fL (80-94) H 10/20/19 03:55 RDW Std Deviation 47.9 fl (35.1-43.9) H 10/20/19 03:55 Plt Count 75 K/mm3 (150-450) L 10/20/19 03:55 MPV 14.0 fl (6.2-12.0) H 10/20/19 03:55 Neut % (Auto) 91.3 % (47-70) H 10/20/19 03:55 Lymph % (Auto) 1.8 % (19-41) L 10/20/19 03:55 Absolute Neuts (auto) 14.3 X10^3/uL (2.0-7.7) H 10/20/19 03:55 Absolute Lymphs (auto) 0.28 X10^3/uL (0.83-4.51) L 10/20/19 03:55 PT 19.8 SECONDS (11.7-14.9) H 10/19/19 08:15 APTT 24.0 Seconds (24.1-36.2) L 10/19/19 08:15 Sodium 154 mmol/L (136-145) H 10/20/19 03:55 Chloride 120 mmol/L (98-107) H 10/20/19 03:55 BUN 66 mg/dL (7-18) H 10/20/19 03:55 Creatinine 0.64 mg/dL (0.70-1.30) L 10/17/19 07:20 BUN/Creatinine Ratio 58.4 RATIO (10-20) H 10/20/19 03:55 Glucose 172 mg/dL (74-106) H 10/20/19 03:55 Lactic Acid 2.3 mmol/L (0.4-1.9) H* 10/14/19 03:28 Calcium 8.4 mg/dL (8.5-10.1) L 10/20/19 03:55 Total Bilirubin 3.10 mg/dL (0.20-1.00) H 10/20/19 03:55 AST 1493 U/L (15-37) H 10/20/19 03:55 ALT 1419 U/L (16-61) H 10/20/19 03:55 Ammonia < 10.0 umol/L (11-32) L 10/19/19 08:15 Lactate Dehydrogenase 1674 U/L (87-241) H 10/18/19 05:18 C-React Prot Ext Range 10.00 mg/L (0.0-3.0) H 10/14/19 00:38 B-Natriuretic Peptide 630.0 pg/mL (0-100) H 10/15/19 04:10 Total Protein 6.0 g/dL (6.4-8.2) L 10/20/19 03:55 Albumin 3.1 g/dL (3.2-5.0) L 10/20/19 03:55 Albumin/Globulin Ratio 0.8 RATIO (0.9-2.4) L 10/17/19 07:20 - Assessment Food / Nutrition-Related History:: Discussed in ICU rounds. Pt remains agitated/confused. Thoracentesis today. Wt decrease of 5.2 kg since last review. Anticipate additional wt loss w/ thoracentesis today. Per rounds- concerns regarding lack of nutritional intake. Pt was extubated 10/14. Enteral nutrition support was provided during intubation. Per nursing documentation, pt w/ coughing during lunch on 10/16- has been NPO since (3 days). - Food / Nutrient Delivery Interventions Summary of nutrition intervention:: NPO day 3. Ideally, would recommend NG placement for temporary enteral nutrition support given functioning GI tract. Per discussion w/ nursing staff, it is anticipated that pt will not leave NG in place. Given information available, pt does not currently meet criteria for acute malnutrition; although it is suspected that pt was w/ supobtimal PO intake [employer]. Would not recommend TPN/PPN at this time- consider if pt remains NPO for >5 days and enteral nutrition support is unable to be trialed. Nutrition support ordered as / adjusted to:: continue NPO until ok for PO diet by QA ANALYST; then recommend cardiac, CHO controlled- consistency per QA ANALYST. Pt is vegetarian. Nutrition education provided?: No - MNT Monitoring Further MNT monitoring and evaluation required?: Yes MNT Follow-up in:: 1-2 days
[2019-10-20] MEDS: Enoxaparin 40 MG/0.4 ML Syringe SC (11:04)
[2019-10-20 12:30] LABS: Bedside Glucose 142 mg/dL (70-110)
[2019-10-20 14:32] LABS: Anion Gap 13 (5-15); BUN 71 mg/dL (7-18); BUN/Creat Ratio 59.2 RATIO (10-20); Calcium,Total 8.5 mg/dL (8.5-10.1); Chloride 121 mmol/L (98-107); EST Glomerular Filtration Rate 63 mL/min (>60); Est Glom Filt Rate - Afr Amer 77 mL/min (>60); Estimated Creatinine Clearance 44.88 ml/min; Glucose 175 mg/dL (74-106); Potassium 4.9 mmol/L (3.5-5.1); Sodium Level 154 mmol/L (136-145)
[2019-10-20 16:51] LABS: Base Excess -1 mmol/L (-2 to +2); Blood Gas Specimen Type ART; O2 Delivery Device Nasal Can; PO2 67 mmHG (75-100); SITE L BRACHIAL; SO2 96 % (95-99); Total Carbon Dioxide 22 mmol/L; pCO2 22.8 mmHg (35-45); pH 7.57 (7.35-7.45)
[2019-10-20 16:52] LABS: Time Given 1558
[2019-10-20 18:40] LABS: Bedside Glucose 200 mg/dL (70-110)
[2019-10-20] MEDS: Menthol/Lanolin/Calamine/Znox 113 GM Tube 1 APPLIC TOPICAL (21:43)
[2019-10-20 23:50] LABS: Bedside Glucose 192 mg/dL (70-110)
[2019-10-21] VITALS (31 sets, daily range): BP systolic 111–151; BP diastolic 57–97; PULSE 89–108; RESP 12–34; TEMP 36.4–36.9; O2SAT 86–100
[2019-10-21] MEDS: 0.9% Saline Lock 10 ML Syringe IV ×2 (04:15→20:00)
[2019-10-21 04:54] LABS: Absolute Lymphocyte Count 0.25 X10^3/uL (0.83-4.51); Absolute Neutrophil Count 14.6 X10^3/uL (2.0-7.7); Basophil# 0.02 X10^3/uL; Basophil% 0.1 % (0-1); Hematocrit 45.1 % (40-54); Hemoglobin 14.5 g/dL (13.0-16.5); Lymphocyte # 0.25 X10^3/ul (4.0); Lymphocyte % 1.6 % (19-41); Mean Corp Hgb Conc 32.2 g/dL (32-36); Mean Corpuscular Hgb 31.5 pg (27.0-32.0); Mean Corpuscular Volume 97.8 fL (80-94); Mean Platelet Vol. 14.2 fl (6.2-12.0); Monocyte# 0.78 X10^3/uL; NRBC Flagged by Analyzer 1.7 % (0-5); Neutrophil # 14.56 X10^3/uL (2.7-7.7); Neutrophil % 92.5 % (47-70); POSITIVE COUNT YES; POSITIVE DIFFERENTIAL YES; Platelet Count 70 K/mm3 (150-450); RBC Distribution Width CV 13.5 % (11.6-14.6); RBC Distribution Width SD 48.1 fl (35.1-43.9); Red Blood Count 4.61 M/mm3 (4.6-6.2); White Blood Count 15.7 K/mm3 (4.4-11.0)
[2019-10-21 05:07] LABS: Differential Indicated SCAN CRITERIA MET
[2019-10-21 05:20] LABS: AST(SGOT) 826 U/L (15-37); Alanine Aminotransfer ALT/SGPT 1181 U/L (16-61); Alkaline Phosphatase 90 U/L (45-117); Anion Gap 9 (5-15); BUN 70 mg/dL (7-18); BUN/Creat Ratio 61.4 RATIO (10-20); Calcium,Total 8.2 mg/dL (8.5-10.1); Chloride 121 mmol/L (98-107); Creatinine, Serum 1.14 mg/dL (0.70-1.30); EST Glomerular Filtration Rate 67 mL/min (>60); Est Glom Filt Rate - Afr Amer 81 mL/min (>60); Estimated Creatinine Clearance 46.91 ml/min; Globulin 2.9 g/dL (2.2-4.2); Glucose 216 mg/dL (74-106); Potassium 3.9 mmol/L (3.5-5.1); Protein, Total 5.9 g/dL (6.4-8.2); Sodium Level 155 mmol/L (136-145)
[2019-10-21] MEDS: Insulin Lispro 100 UNIT/ML INSULN.PEN SC ×3 (06:07→17:28)
[2019-10-21 06:11] LABS: Bedside Glucose 181 mg/dL (70-110)
[2019-10-21] MEDS: Ipratropium/Albuterol Sulfate 3 ML AMPUL.NEB INHALATION ×4 (07:05→19:10)
--- NOTE | 2019-10-21 07:18 | PN_ITS ---
Subjective: Patient did okay overnight. Patient's mental status is slightly improved compared to previous as he acknowledges his name, but is still unable to follow commands. Oxygenation status has been much improved. Patient did have a thoracentesis yesterday with 350 cc removed. General: Alert, Confused, Disoriented, Non-Cooperative, - - Cachectic. Appears older than stated age. HEENT: Atraumatic, PERRLA, EOMI, Normocephalic, - - No scleral icterus or injection noted Oral: Moist Mucosa, No Gingival or Mucosal Lesions/ Ulcerations Neck: Supple, No JVD, No Nodes, Trachea Midline Lungs: No rhonchi, No wheeze, No rales, Diminished, - - Symmetric expansion. Improved air exchange on the left Cardiovascular: Normal S1, Normal S2, No murmurs, No rub noted, No Gallop, Tachycardic Abdomen: Bowel Sounds Present, Soft, Non Tender, Non-Distended Extremities: No cyanosis, No edema, Peripheral Pulses Normal Skin: - - Vascular insufficiency changes of the peripheral extremities Musculoskeletal: No Tenderness to Palpation of Joints or Extremities Lymphatic: No Cervical, Supraclavicular, or Inguinal Adenopathy Neurological: Cranial nerves II-XII grossly intact, Neuro grossly intact, Motor Exam 5/5 strength throughout Psych/Mental Status: Impulsive, Restless Vital Signs Temp Pulse Resp BP Pulse Ox 36.9 C 91 20 H 151/83 H 99 10/21/19 00:00 10/21/19 06:00 10/21/19 06:00 10/21/19 06:00 10/21/19 06:00 Oxygen Flow Rate (L/min) [3] 4 Oxygen Flow Rate (L/min) [2] 4 Oxygen Flow Rate (L/min) [1 ( 4 Initial Baseline)] Oxygen Flow Rate (L/min) 3 Oxygen Delivery Method [3] Nasal Cannula Oxygen Delivery Method [2] Nasal Cannula Oxygen Delivery Method [1 ( Nasal Cannula Initial Baseline)] Oxygen Delivery Method Nasal Cannula Weight: 55 kg Body Mass Index (BMI) 19.7 Intake and Output for Last 24 Hours 10/19/19 10/20/19 10/21/19 23:59 23:59 23:59 Intake Total 1205 / 1205 1152.0 / 1152.0 Output Total 350 / 350 Balance 1205 / 1205 802.0 / 802.0 Labs (Last 48 Hours) 10/18/19 10/19/19 10/19/19 14:20 05:58 08:15 WBC RBC Hgb Hct MCV MCH MCHC RDW Std Deviation RDW Coeff of Xenia Plt Count MPV Immature Gran % (Auto) Neut % (Auto) Lymph % (Auto) [place] % (Auto) Eos % (Auto) Baso % (Auto) Absolute Neuts (auto) Absolute Lymphs (auto) Nucleated RBC % Differential Comment Reactive Lymphocytes Platelet Estimate PT 19.8 H INR 1.7 APTT 24.0 L Specimen Type Sample Site pH Bicarbonate Actual POC Total CO2 Base Excess O2 Saturation ABG pCO2 ABG pO2 O2 Delivery Device Liter Flow Blood Gas Notified Whom Blood Gas Notified Time Sodium Potassium Chloride Carbon Dioxide Anion Gap BUN Creatinine Estim Creat Clear Calc Est GFR (MDRD) Af Amer Est GFR (MDRD) Non-Af BUN/Creatinine Ratio Glucose Calcium Total Bilirubin AST ALT Alkaline Phosphatase Ammonia Total Protein Albumin Globulin Albumin/Globulin Ratio Fl Pathologist Comment Reviewed POC Glucose 195 H 10/19/19 10/19/19 10/19/19 08:15 12:20 16:46 WBC RBC Hgb Hct MCV MCH MCHC RDW Std Deviation RDW Coeff of X[place] Plt Count MPV Immature Gran % (Auto) Neut % (Auto) Lymph % (Auto) [place] % (Auto) Eos % (Auto) Baso % (Auto) Absolute Neuts (auto) Absolute Lymphs (auto) Nucleated RBC % Differential Comment Reactive Lymphocytes Platelet Estimate PT INR APTT Specimen Type Sample Site pH Bicarbonate Actual POC Total CO2 Base Excess O2 Saturation ABG pCO2 ABG pO2 O2 Delivery Device Liter Flow Blood Gas Notified Whom Blood Gas Notified Time Sodium Potassium Chloride Carbon Dioxide Anion Gap BUN Creatinine Estim Creat Clear Calc Est GFR (MDRD) Af Amer Est GFR (MDRD) Non-Af BUN/Creatinine Ratio Glucose Calcium Total Bilirubin AST ALT Alkaline Phosphatase Ammonia < 10.0 L Total Protein Albumin Globulin Albumin/Globulin Ratio Fl Pathologist Comment POC Glucose 149 H 163 H 10/20/19 10/20/19 10/20/19 00:02 03:55 03:55 WBC 15.6 H RBC 4.58 L Hgb 14.5 Hct 44.9 MCV 98.0 H MCH 31.7 MCHC 32.3 RDW Std Deviation 47.9 H RDW Coeff of Xenia 13.4 Plt Count 75 L MPV 14.0 H Immature Gran % (Auto) 0.600 Neut % (Auto) 91.3 H Lymph % (Auto) 1.8 L [place] % (Auto) 6.2 Eos % (Auto) 0.0 Baso % (Auto) 0.1 Absolute Neuts (auto) 14.3 H Absolute Lymphs (auto) 0.28 L Nucleated RBC % 2.8 Differential Comment SCANNED Reactive Lymphocytes RARE Platelet Estimate MOD DEC PT INR APTT Specimen Type Sample Site pH Bicarbonate Actual POC Total CO2 Base Excess O2 Saturation ABG pCO2 ABG pO2 O2 Delivery Device Liter Flow Blood Gas Notified Whom Blood Gas Notified Time Sodium 154 H Potassium 4.2 Chloride 120 H Carbon Dioxide 24.0 Anion Gap 10 BUN 66 H Creatinine 1.13 Estim Creat Clear Calc 52.14 Est GFR (MDRD) Af Amer 82 Est GFR (MDRD) Non-Af 68 BUN/Creatinine Ratio 58.4 H Glucose 172 H Calcium 8.4 L Total Bilirubin 3.10 H AST 1493 H ALT 1419 H Alkaline Phosphatase 96 Ammonia Total Protein 6.0 L Albumin 3.1 L Globulin 2.9 Albumin/Globulin Ratio 1.1 Fl Pathologist Comment POC Glucose 145 H 10/20/19 10/20/19 10/20/19 05:18 11:58 14:05 WBC RBC Hgb Hct MCV MCH MCHC RDW Std Deviation RDW Coeff of [place] Plt Count MPV Immature Gran % (Auto) Neut % (Auto) Lymph % (Auto) [place] % (Auto) Eos % (Auto) Baso % (Auto) Absolute Neuts (auto) Absolute Lymphs (auto) Nucleated RBC % Differential Comment Reactive Lymphocytes Platelet Estimate PT INR APTT Specimen Type Sample Site pH Bicarbonate Actual POC Total CO2 Base Excess O2 Saturation ABG pCO2 ABG pO2 O2 Delivery Device Liter Flow Blood Gas Notified Whom Blood Gas Notified Time Sodium 154 H Potassium 4.9 Chloride 121 H Carbon Dioxide 20.0 L Anion Gap 13 BUN 71 H Creatinine 1.20 Estim Creat Clear Calc 44.88 Est GFR (MDRD) Af Amer 77 Est GFR (MDRD) Non-Af 63 BUN/Creatinine Ratio 59.2 H Glucose 175 H Calcium 8.5 Total Bilirubin AST ALT Alkaline Phosphatase Ammonia Total Protein Albumin Globulin Albumin/Globulin Ratio Fl Pathologist Comment POC Glucose 152 H 142 H 10/20/19 10/20/19 10/20/19 15:58 18:14 23:38 WBC RBC Hgb Hct MCV MCH MCHC RDW Std Deviation RDW Coeff of Xenia Plt Count MPV Immature Gran % (Auto) Neut % (Auto) Lymph % (Auto) [place] % (Auto) Eos % (Auto) Baso % (Auto) Absolute Neuts (auto) Absolute Lymphs (auto) Nucleated RBC % Differential Comment Reactive Lymphocytes Platelet Estimate PT INR APTT Specimen Type ART Sample Site L BRACHIAL pH 7.57 H Bicarbonate Actual 21.0 L POC Total CO2 22 Base Excess -1 O2 Saturation 96 ABG pCO2 22.8 L ABG pO2 67 L O2 Delivery Device Nasal Can Liter Flow 4.0 Blood Gas Notified Whom ICU MD Blood Gas Notified Time 1558 Sodium Potassium Chloride Carbon Dioxide Anion Gap BUN Creatinine Estim Creat Clear Calc Est GFR (MDRD) Af Amer Est GFR (MDRD) Non-Af BUN/Creatinine Ratio Glucose Calcium Total Bilirubin AST ALT Alkaline Phosphatase Ammonia Total Protein Albumin Globulin Albumin/Globulin Ratio Fl Pathologist Comment POC Glucose 200 H 192 H 10/21/19 10/21/19 10/21/19 04:40 04:40 06:05 WBC 15.7 H RBC 4.61 Hgb 14.5 Hct 45.1 MCV 97.8 H MCH 31.5 MCHC 32.2 RDW Std Deviation 48.1 H RDW Coeff of Xenia 13.5 Plt Count 70 L MPV 14.2 H Immature Gran % (Auto) 0.800 Neut % (Auto) 92.5 H Lymph % (Auto) 1.6 L [place] % (Auto) 5.0 Eos % (Auto) 0.0 Baso % (Auto) 0.1 Absolute Neuts (auto) 14.6 H Absolute Lymphs (auto) 0.25 L Nucleated RBC % 1.7 Differential Comment COMMENT Reactive Lymphocytes Platelet Estimate PT INR APTT Specimen Type Sample Site pH Bicarbonate Actual POC Total CO2 Base Excess O2 Saturation ABG pCO2 ABG pO2 O2 Delivery Device Liter Flow Blood Gas Notified Whom Blood Gas Notified Time Sodium 155 H Potassium 3.9 Chloride 121 H Carbon Dioxide 25.0 Anion Gap 9 BUN 70 H Creatinine 1.14 Estim Creat Clear Calc 46.91 Est GFR (MDRD) Af Amer 81 Est GFR (MDRD) Non-Af 67 BUN/Creatinine Ratio 61.4 H Glucose 216 H Calcium 8.2 L Total Bilirubin 3.30 H AST 826 H ALT 1181 H Alkaline Phosphatase 90 Ammonia Total Protein 5.9 L Albumin 3.0 L Globulin 2.9 Albumin/Globulin Ratio 1.0 Fl Pathologist Comment POC Glucose 181 H Microbiology 10/18/19 14:20 Fluid - Thoracentesis Fluid Gram Stain - Final 10/18/19 14:20 Fluid - Thoracentesis Fluid Body Fluid Culture - Preliminary No growth-Final to follow 10/18/19 14:20 Fluid - Thoracentesis Fluid Anaerobic Culture - Preliminary No growth in 48 hours. 10/14/19 00:38 Blood Culture (Wb) - Right Hand Blood Culture - Final No growth in 5 days. 10/14/19 00:40 Blood Culture (Wb) - Anticubital Left Blood Culture - Final No growth in 5 days. Clinical Impression(s) from Imaging Studies Thoracentesis Ultrasound 10/20/19 01:30 IMPRESSION: Successful ultrasound-guided left thoracentesis. Electronically Signed: Temi Richards, at 10:46 EDT Tel , Service support , Chest X-Ray 10/20/19 10:59 IMPRESSION: Markedly decreased right pleural effusion. Resolved left pleural effusion. There is no evidence of pneumothorax. Electronically Signed: Temi Richards, at 12:11 EDT Tel , Service support , Medical Necessity - Tobacco Use Smoking Status: Former smoker Tobacco Use: Non-smoker Assessment/Plan All Active Problems (Last Reviewed 07/15/18 @ 16:45 by April Hyatt) Severe sepsis (Acute) Acute on chronic respiratory failure with hypoxia (Acute) COPD exacerbation (Acute) Bilateral pneumonia (Acute) Suspected 2019 novel coronavirus infection (Acute) Pneumonia of both lower lobes (Acute) Respiratory failure (Acute) Bronchitis (Acute) URI (upper respiratory infection) (Acute) Sinusitis, acute maxillary (Acute) RECOMMENDATIONS: 1. Continue to wean supplemental oxygen to maintain saturations at or above 90%. 2. Monitor fluid status closely given needs for D5W 3. Continue bronchodilators and wean IV steroids. 4. Encourage incentive spirometer use and mobilize patient as tolerated. 5. Continue empiric antimicrobials per infectious diseases recommendations. 6. Aggressive blood pressure control 7. Increase D5W for hypernatremia and hyperchloremia IMPRESSIONS: 1. Acute hypoxemic respiratory failure Likely secondary to COPD with exacerbation precipitated by bilateral lower lobe pneumonia. COVID testing was negative. The patient improved initially with supportive measures including invasive mechanical ventilatory support, antimicrobials, bronchodilators and steroids. He was able to be extubated on the morning of October 14. Patient is back to room air. Clinical suspicion for congestive heart failure is a partial etiology for initial respiratory failure. Patient has had 2 thoracentesis and is currently tolerating room air. Mentation continues to be a difficulty. 2. Severe sepsis Improved from a hemodynamic standpoint. Appears to be secondary to underlying pulmonary infectious process. Continue current supportive measures and antimicrobials as noted above. Patient not able to take p.o. medications at this time secondary to mental status 3. Coronary artery disease status post CABG/hypertensive emergency Continue outpatient cardiac medication regimen. Patient was significant tachycardia and hypertension noted. Recommend aggressive blood pressure control. Significant tachycardia could be exacerbating diastolic dysfunction. Patient currently is n.p.o. secondary to mental status. Patient may be more directable today. Continue to follow with speech therapy. Anticipate adding Coreg once patient can swallow. 4. Chronic alcohol dependency/chronic pain syndrome/anxiety/depress ion/hypertension/hyperlipidemia/acute hepatitis/delirium Complicates care, management, recovery and prognosis. Continue home medications as indicated. Unclear if delirium is secondary to withdrawal symptoms versus hyperchloremia/hypernatremia. Patient will be increased on D5W and monitor. Inpatient E&M: [id number] [facility] L3
--- NOTE | 2019-10-21 07:18 | PN_ITS ---
Patient Problems: Active and Suspected Problems (Last Reviewed 07/15/18 @ 16:45 by April Hyatt) Severe sepsis (Acute) Acute on chronic respiratory failure with hypoxia (Acute) COPD exacerbation (Acute) Bilateral pneumonia (Acute) Suspected 2019 novel coronavirus infection (Acute) Pneumonia of both lower lobes (Acute) Respiratory failure (Acute) Reason for Visit: Follow-up on respiratory distress/severe sepsis secondary to pneumonia/delirium Subjective: Patient appears to be improved. He is on 2-3L oxygen. His encephalopathy, however, is minimally improved. He is unable to follow commands. No use of prn Haldol in more than 24 hours. Objective: Physical exam: General: Alert, Confused, on 2-3 L oxygen HEENT: Atraumatic, PERRLA, EOMI, Normocephalic Oral: Moist Mucosa Neck: Supple Lungs: Clear to auscultation, Normal air movement Cardiovascular: Regular rate, Regular Rhythm, Normal S1, Normal S2, No murmurs Abdomen: Bowel Sounds Present, Soft, Non Tender, Non-Distended, No Hepato- splenomegaly Extremities: No edema Skin: No rashes, No breakdown Musculoskeletal: No Tenderness to Palpation of Joints or Extremities Lymphatic: No Cervical, Supraclavicular, or Inguinal Adenopathy Neurological: Cranial nerves II-XII grossly intact, Neuro grossly intact Psych/Mental Status: Normal Affect, Appropriate Vitals/I&O's: Vital Signs Temp Pulse Resp BP Pulse Ox 98.5 F 91 20 H 151/83 H 99 10/21/19 00:00 10/21/19 06:00 10/21/19 06:00 10/21/19 06:00 10/21/19 06:00 Oxygen Flow Rate (L/min) [3] 4 Oxygen Flow Rate (L/min) [2] 4 Oxygen Flow Rate (L/min) [1 ( 4 Initial Baseline)] Oxygen Flow Rate (L/min) 3 Oxygen Delivery Method [3] Nasal Cannula Oxygen Delivery Method [2] Nasal Cannula Oxygen Delivery Method [1 ( Nasal Cannula Initial Baseline)] Oxygen Delivery Method Nasal Cannula Weight: 55 kg Body Mass Index (BMI) 19.7 Intake and Output for Last 24 Hours 10/19/19 10/20/19 10/21/19 23:59 23:59 23:59 Intake Total 1205 / 1205 1152.0 / 1152.0 Output Total 350 / 350 Balance 1205 / 1205 802.0 / 802.0 Microbiology Past 72 Hours 10/18/19 14:20 Fluid - Thoracentesis Fluid Gram Stain - Final 10/18/19 14:20 Fluid - Thoracentesis Fluid Body Fluid Culture - Preliminary No growth-Final to follow 10/18/19 14:20 Fluid - Thoracentesis Fluid Anaerobic Culture - Preliminary No growth in 48 hours. 10/14/19 00:38 Blood Culture (Wb) - Right Hand Blood Culture - Final No growth in 5 days. 10/14/19 00:40 Blood Culture (Wb) - Anticubital Left Blood Culture - Final No growth in 5 days. Laboratory Results 10/20/19 11:58: POC Glucose 142 H 10/20/19 14:05: Sodium 154 H, Potassium 4.9, Chloride 121 H, Carbon Dioxide 20.0 L, Anion Gap 13, BUN 71 H, Creatinine 1.20, Estim Creat Clear Calc 44.88, Est GFR (MDRD) Af Amer 77, Est GFR (MDRD) Non-Af 63, BUN/Creatinine Ratio 59.2 H, Glucose 175 H, Calcium 8.5 10/20/19 15:58: Specimen Type ART, Sample Site L BRACHIAL, pH 7.57 H, Bica rbonate Actual 21.0 L, POC Total CO2 22, Base Excess -1, O2 Saturation 96, ABG pCO2 22.8 L, ABG pO2 67 L, O2 Delivery Device Nasal Can, Liter Flow 4.0, Blood Gas Notified Whom ICU , Blood Gas Notified Time 1558 10/20/19 18:14: POC Glucose 200 H 10/20/19 23:38: POC Glucose 192 H 10/21/19 04:40: WBC 15.7 H, RBC 4.61, Hgb 14.5, Hct 45.1, MCV 97.8 H, MCH 31.5, MCHC 32.2, RDW Std Deviation 48.1 H, RDW Coeff of Xenia 13.5, Plt Count 70 L, MPV 14.2 H, Immature Gran % (Auto) 0.800, Neut % (Auto) 92.5 H, Lymph % (Auto) 1.6 L , [place] % (Auto) 5.0, Eos % (Auto) 0.0, Baso % (Auto) 0.1, Absolute Neuts (auto) 14.6 H, Absolute Lymphs (auto) 0.25 L, Nucleated RBC % 1.7, Differential Comment COMMENT 10/21/19 04:40: Sodium 155 H, Potassium 3.9, Chloride 121 H, Carbon Dioxide 25.0, Anion Gap 9, BUN 70 H, Creatinine 1.14, Estim Creat Clear Calc 46.91, Est GFR (MDRD) Af Amer 81, Est GFR (MDRD) Non-Af 67, BUN/Creatinine Ratio 61.4 H, Glucose 216 H, Calcium 8.2 L, Total Bilirubin 3.30 H, AST 826 H, ALT 1181 H, Alkaline Phosphatase 90, Total Protein 5.9 L, Albumin 3.0 L, Globulin 2.9, Albumin/Globulin Ratio 1.0 10/21/19 06:05: POC Glucose 181 H Current Medications Acetaminophen (Tylenol) 650 mg PO Q6H PRN PRN PRN Reason: Pain Score 1-10/Temp > 100.7 F Al Hydroxide/Mg Hydroxide (Mylanta Ii) 30 ml PO Q6H PRN PRN PRN Reason: Gastric Burning Albuterol Sulfate (Ventolin Aerosols) 2.5 mg INHALATION Q2H PRN PRN PRN Reason: Dyspnea, wheezing Last Admin: 10/16/19 14:35 Dose: 2.5 mg Documented by: Albuterol/Ipratropium (Duoneb) 3 ml INHALATION Q4HWA.RT [facility] Last Admin: 10/21/19 07:05 Dose: 3 ml Documented by: Aspirin (Aspirin, Baby) 81 mg PO DAILY [facility] Last Admin: 10/20/19 09:52 Dose: Not Given Documented by: Atorvastatin Calcium (Lipitor) 10 mg PO QHS [facility] Bupropion HCl (Wellbutrin Sr (150mg Tablets)) 150 mg PO DAILY [facility] Last Admin: 10/20/19 09:53 Dose: Not Given Documented by: Calamine/Phenol (Calmoseptine Ointment) 1 applic TOPICAL BID [facility]; Protocol Last Admin: 10/20/19 21:43 Dose: 1 applicatio Documented by: Clopidogrel Bisulfate (Plavix) 75 mg PO DAILY [facility] Last Admin: 10/20/19 09:53 Dose: Not Given Documented by: Dextrose (D50w Syringe) 0 gm IV X1 PRN; Protocol PRN Reason: Hypoglycemia Dicyclomine HCl (Bentyl) 20 mg PO Q6H PRN PRN PRN Reason: abdominal discomfort Glucagon () 1 mg IM .X1 PRN PRN Reason: Hypoglycemia Guaifenesin (Robitussin) 10 ml PO Q4H PRN PRN PRN Reason: COUGH Haloperidol Lactate (Haldol) 5 mg IV Q6H PRN PRN PRN Reason: AGITATION Last Admin: 10/19/19 20:57 Dose: 5 mg Documented by: Sodium Chloride () 250 mls @ 15 mls/hr IV .[id number] PRN PRN Reason: Saline Flush Last Infusion: 10/19/19 19:00 Dose: Infused Documented by: Sodium Chloride () 250 mls @ 15 mls/hr IV .[id number] PRN PRN Reason: Additional IVPB Infusion Cefepime HCl 2 gm/ Sodium (Chloride) 100 mls @ 200 mls/hr IV Q12 [facility] Last Admin: 10/20/19 21:42 Dose: 200 mls/hr Documented by: Dextrose () 1,000 mls @ 100 mls/hr IV .Q10H [facility] Last Admin: 10/20/19 23:40 Dose: 100 mls/hr Documented by: Insulin Human Lispro (Humalog Kwikpen (Bkc)) 0 unit SC Q6 [facility]; Protocol Last Admin: 10/21/19 06:07 Dose: 1 units Documented by: Labetalol HCl (Trandate) 10 mg IV Q4H [facility] Last Admin: 10/21/19 04:15 Dose: 10 mg Documented by: Loperamide HCl (Imodium) 2 mg PO Q4H PRN PRN PRN Reason: LOOSE STOOLS Magnesium Hydroxide (Milk Of Magnesia) 30 ml PO DAILY PRN PRN PRN Reason: Constipation Methylprednisolone (Solu-Medrol) 40 mg IV Q12 [facility] Last Admin: 10/20/19 21:42 Dose: 40 mg Documented by: Morphine Sulfate () 2 mg IV Q2H PRN PRN PRN Reason: Pain Score 6-10/10 Last Admin: 10/19/19 21:51 Dose: 2 mg Documented by: Nitroglycerin (Nitrostat) 0.4 mg SUBLINGUAL Q5M PRN PRN Reason: CARDIAC/CHEST PAIN Psyllium Hydrophilic Mucilloid (Metamucil) 1 packet PO DAILY PRN PRN PRN Reason: Constipation Ranolazine (Ranexa) 1,000 mg PO DAILY [facility] Last Admin: 10/20/19 09:53 Dose: Not Given Documented by: Senna/Docusate Sodium (Senokot-S, Ami-Colace) 2 tablet PO BID PRN PRN PRN Reason: Constipation Sodium Chloride () 10 - 40 ml IV UD PRN PRN Reason: SALINE FLUSH Last Admin: 10/21/19 04:15 Dose: 10 ml Documented by: Trazodone HCl (Desyrel) 100 mg PO QHS PRN PRN Reason: INSOMNIA STROKE Vital Signs/Narrative: Vital Signs Pulse Resp BP Pulse Ox 10/21/19 06:00 91 20 H 151/83 H 99 10/21/19 05:00 103 H 28 H 147/70 H 100 10/21/19 04:00 103 H 32 H 111/78 100 Medical Necessity - Tobacco Use Smoking Status: Former smoker Tobacco Use: Non-smoker Assessment/Plan All Active Problems (Last Reviewed 07/15/18 @ 16:45 by April Hyatt) Severe sepsis (Acute) Acute on chronic respiratory failure with hypoxia (Acute) COPD exacerbation (Acute) Bilateral pneumonia (Acute) Suspected 2018 novel coronavirus infection (Acute) Pneumonia of both lower lobes (Acute) Respiratory failure (Acute) Bronchitis (Acute) URI (upper respiratory infection) (Acute) Sinusitis, acute maxillary (Acute) 1. Acute delirium, unclear etiology, persistent, maybe slightly improved today Multifactorial in etiology; hypoxia/opioid withdrawal/ICU delirium Less suspicious of alcohol withdrawal on account of history from his that since patient drinks [address] scan of brain negative for intracerebral bleed; cannot do a MRI because of vascular clips Ammonia is less than 10 On morphine prn, will continue to monitor for oversedation 2. Acute hypoxic respiratory failure secondary to progressive bilateral pneumonia/aspiration pneumonia/bilateral pleural effusion status post extubation on 10/15/19, progressive improvement in oxygen requirements with decreasing level parameters Status post bilateral thoracocentesis; 500mls from right on 10/18/19, 350mls from left effusion on 10/20/19; findings are suggestive of transudative cause from Lights criteria. Continue IV cefepime, breathing treatments, IV solumedrol 3. Elevated LFTs, unclear etiology, likely medication related( Meropenem), improving Off meropenem, currently on cefepime Previous LFTs and ultrasound of liver were normal Will continue to monitor 4. Severe sepsis secondary to bilateral pneumonia/ aspiration pneumonia On IV cefepime 2g Q8h 5. Dysphagia, likely secondary to acute illness/acute confusional state Kept NPO, aspiration precautions, site operations manager and speech therapy consulted May need PPN/TPN 6. Hypertension, better controlled Continue on labetalol to 20 mg every 4h as needed 7. CAD status post CABG/hyperlipidemia/carotid artery stenosis/renal artery pseudoaneurysm/history of brain aneurysm Not been able to take aspirin, Plavix or beta-chantel Will switch to rectal aspirin 8. Anxiety/depression/chronic pain syndrome, on IV morphine now Home antidepressants on hold 9. DVT PPx- Lovenox SC 10. Code status - Full code Inpatient E&M: 74401 Subs Hosp L2
--- NOTE | 2019-10-21 08:46 | ECHOD_ITS ---
Reason For Study: DYSPNEA Procedure This was a 2D Doppler, Color Flow transthoracic echocardiogram. Technically difficult- pt confused and not able to hold still or stay in LLD position. Exam performed portable in ICU/CCU. Left Ventricle Normal LV size. The estimated ejection fraction is 35 %. Segmental dysfunction of left ventricle, multiple coronary distributions. Moderately severe segmental systolic dysfunction (see wall motion). Infero-Basal: Akinetic. Posterior-Basal: Akinetic. Mid-Anterior : Hypokinetic. Mid-Inferior: Akinetic. The rest of the wall segments are hypokinetic. Right Ventricle Normal RV size. Normal systolic function. Atria Normal left atrium. Normal right atrium. Mitral Valve Mild diffuse mitral valve thickening. Mild focal mitral valve calcification. Mild-Moderate (1-2+) eccentric mitral valve insufficiency. Tricuspid Valve Normal tricuspid valve. Mild to moderate (1-2+) tricuspid valve insufficiency. Pulmonary artery systolic pressure is 47 mmHg. Moderate pulmonary hypertension. Aortic Valve Trisinus/trileaflet aortic valve. Mild focal aortic valve calcification. Mild (1+) eccentric aortic valve insufficiency. Pulmonic Valve Normal pulmonic valve. Great Vessels Normal aortic root. The pulmonary artery is normal size. Normal inferior vena cava. Pericardium/Pleural No pericardial effusion. Small left pleural effusion. MMode/2D Measurements & Calculations LVIDd: 5.5 cm IVSd: 1.1 cm Ao root diam: 3.4 cm LVIDs: 5.2 cm LVPWd: 0.73 cm RVDd: 3.6 cm FS: 6.7 % LAV(MOD-bp): 69.7 ml LVAd ap4: 37.6 cm2 SV(MOD-sp4): 23.9 ml LAV(MOD-bp) Indexed: 43.2 ml/m2 EDV(MOD-sp4): 128.4 ml LAV(MOD-sp2): 80.5 ml EDV(sp4-el): 135.5 ml LAV(MOD-sp4): 54.4 ml LVAs ap4: 33.6 cm2 ESV(MOD-sp4): 104.5 ml ESV(sp4-el): 110.7 ml EF(MOD-sp4): 18.6 % EF(sp4-el): 18.3 % SV(sp4-el): 24.8 ml LA A4 area: 18.5 cm2 LA dimension(2D): 4.5 cm RA A4 area: 17.3 cm2 Time Measurements MV dec time: 0.09 sec Doppler Measurements & Calculations MV E max ferdinand: 122.3 cm/sec Lat Peak E' Ferdinand: 4.2 cm/sec Ao V2 max: 149.9 cm/sec MV A max ferdinand: 67.6 cm/sec E/E' lat: 29.2 Ao max P.0 mmHg MV E/A: 1.8 Ao V2 mean: 85.8 cm/sec Ao mean P.6 mmHg Ao V2 VTI: 19.1 cm LV V1 max: 76.7 cm/sec TR max ferdinand: 328.0 cm/sec LV V1 max P.4 mmHg TR max P.2 mmHg LV V1 mean P.97 mmHg LV V1 mean: 44.0 cm/sec LV V1 VTI: 13.9 cm Interpretation Summary Normal LV size. The estimated ejection fraction is 35 %. Segmental dysfunction of left ventricle, multiple coronary distributions. Mild-Moderate (1-2+) eccentric mitral valve insufficiency. Mild to moderate (1-2+) tricuspid valve insufficiency. Moderate pulmonary hypertension. Pulmonary artery systolic pressure is 47 mmHg. Ordering Physician: Lili Rodriguez Performed By: Marimar Allan, LIONEL, RVT
--- NOTE | 2019-10-21 09:59 | PN.ID_ITS ---
Patient Problems: Active and Suspected Problems (Last Reviewed 07/15/18 @ 16:45 by April Hyatt) Severe sepsis (Acute) Acute on chronic respiratory failure with hypoxia (Acute) COPD exacerbation (Acute) Bilateral pneumonia (Acute) Suspected 2019 novel coronavirus infection (Acute) Pneumonia of both lower lobes (Acute) Respiratory failure (Acute) Subjective: Doing ok, no fever, some dyspnea. - Physical Exam Vitals/I&O's: Vital Signs Temp Pulse Resp BP Pulse Ox 98.5 F 95 20 H 151/83 H 96 10/21/19 00:00 10/21/19 08:00 10/21/19 07:00 10/21/19 06:00 10/21/19 07:00 Oxygen Flow Rate (L/min) [3] 4 Oxygen Flow Rate (L/min) [2] 4 Oxygen Flow Rate (L/min) [1 ( 4 Initial Baseline)] Oxygen Flow Rate (L/min) 2 Oxygen Delivery Method [3] Nasal Cannula Oxygen Delivery Method [2] Nasal Cannula Oxygen Delivery Method [1 ( Nasal Cannula Initial Baseline)] Oxygen Delivery Method Nasal Cannula Weight: 55 kg Body Mass Index (BMI) 19.7 Intake and Output for Last 24 Hours 10/19/19 10/20/19 10/21/19 23:59 23:59 23:59 Intake Total 1205 / 1205 1152.0 / 1152.0 987.50 / 987.50 Output Total 350 / 350 Balance 1205 / 1205 802.0 / 802.0 987.50 / 987.50 General: Cooperative, No apparent distress Lungs: Rhonchi, Using Accessory Muscles Cardiovascular: Regular rate, Regular Rhythm Abdomen: Soft, Non Tender, Non-Distended Skin: No rashes Microbiology Past 72 Hours 10/18/19 14:20 Fluid - Thoracentesis Fluid Gram Stain - Final 10/18/19 14:20 Fluid - Thoracentesis Fluid Body Fluid Culture - Preliminary No growth-Final to follow 10/18/19 14:20 Fluid - Thoracentesis Fluid Anaerobic Culture - Preliminary No growth in 48 hours. 10/14/19 00:38 Blood Culture (Wb) - Right Hand Blood Culture - Final No growth in 5 days. 10/14/19 00:40 Blood Culture (Wb) - Anticubital Left Blood Culture - Final No growth in 5 days. Laboratory Results 10/18/19 14:20: Miscellaneous Cytology SEE PATHOLOGY REPORT 10/20/19 11:58: POC Glucose 142 H 10/20/19 14:05: Sodium 154 H, Potassium 4.9, Chloride 121 H, Carbon Dioxide 20.0 L, Anion Gap 13, BUN 71 H, Creatinine 1.20, Estim Creat Clear Calc 44.88, Est GFR (MDRD) Af Amer 77, Est GFR (MDRD) Non-Af 63, BUN/Creatinine Ratio 59.2 H, Glucose 175 H, Calcium 8.5 10/20/19 15:58: Specimen Type ART, Sample Site L BRACHIAL, pH 7.57 H, Bicarbonate Actual 21.0 L, POC Total CO2 22, Base Excess -1, O2 Saturation 96, ABG pCO2 22.8 L, ABG pO2 67 L, O2 Delivery Device Nasal Can, Liter Flow 4.0, Blo od Gas Notified Whom ICU MD, Blood Gas Notified Time 1558 10/20/19 18:14: POC Glucose 200 H 10/20/19 23:38: POC Glucose 192 H 10/21/19 04:40: WBC 15.7 H, RBC 4.61, Hgb 14.5, Hct 45.1, MCV 97.8 H, MCH 31.5, MCHC 32.2, RDW Std Deviation 48.1 H, RDW Coeff of Xenia 13.5, Plt Count 70 L, MPV 14.2 H, Immature Gran % (Auto) 0.800, Neut % (Auto) 92.5 H, Lymph % (Auto) 1.6 L , [place] % (Auto) 5.0, Eos % (Auto) 0.0, Baso % (Auto) 0.1, Absolute Neuts (auto) 14.6 H, Absolute Lymphs (auto) 0.25 L, Nucleated RBC % 1.7, Differential Comment COMMENT 10/21/19 04:40: Sodium 155 H, Potassium 3.9, Chloride 121 H, Carbon Dioxide 25.0, Anion Gap 9, BUN 70 H, Creatinine 1.14, Estim Creat Clear Calc 46.91, Est GFR (MDRD) Af Amer 81, Est GFR (MDRD) Non-Af 67, BUN/Creatinine Ratio 61.4 H, Glucose 216 H, Calcium 8.2 L, Total Bilirubin 3.30 H, AST 826 H, ALT 1181 H, Alkaline Phosphatase 90, Total Protein 5.9 L, Albumin 3.0 L, Globulin 2.9, Albumin/Globulin Ratio 1.0 10/21/19 06:05: POC Glucose 181 H Current Medications Acetaminophen (Tylenol) 650 mg PO Q6H PRN PRN PRN Reason: Pain Score 1-10/Temp > 100.7 F Al Hydroxide/Mg Hydroxide (Mylanta Ii) 30 ml PO Q6H PRN PRN PRN Reason: Gastric Burning Albuterol Sulfate (Ventolin Aerosols) 2.5 mg INHALATION Q2H PRN PRN PRN Reason: Dyspnea, wheezing Last Admin: 10/16/19 14:35 Dose: 2.5 mg Documented by: Albuterol/Ipratropium (Duoneb) 3 ml INHALATION Q4HWA.RT [facility] Last Admin: 10/21/19 07:05 Dose: 3 ml Documented by: Aspirin (Aspirin, Baby) 81 mg PO DAILY [facility] Last Admin: 10/20/19 09:52 Dose: Not Given Documented by: Atorvastatin Calcium (Lipitor) 10 mg PO QHS [facility] Bupropion HCl (Wellbutrin Sr (150mg Tablets)) 150 mg PO DAILY [facility] Last Admin: 10/20/19 09:53 Dose: Not Given Documented by: Calamine/Phenol (Calmoseptine Ointment) 1 applic TOPICAL BID [facility]; Protocol Last Admin: 10/20/19 21:43 Dose: 1 applicatio Documented by: Clopidogrel Bisulfate (Plavix) 75 mg PO DAILY [facility] Last Admin: 10/20/19 09:53 Dose: Not Given Documented by: Dextrose (D50w Syringe) 0 gm IV X1 PRN; Protocol PRN Reason: Hypoglycemia Dicyclomine HCl (Bentyl) 20 mg PO Q6H PRN PRN PRN Reason: abdominal discomfort Glucagon () 1 mg IM .X1 PRN PRN Reason: Hypoglycemia Guaifenesin (Robitussin) 10 ml PO Q4H PRN PRN PRN Reason: COUGH Haloperidol Lactate (Haldol) 5 mg IV Q6H PRN PRN PRN Reason: AGITATION Last Admin: 10/19/19 20:57 Dose: 5 mg Documented by: Sodium Chloride () 250 mls @ 15 mls/hr IV .[id number] PRN PRN Reason: Saline Flush Last Infusion: 04/15/20 19:00 Dose: Infused Documented by: Sodium Chloride () 250 mls @ 15 mls/hr IV .[id number] PRN PRN Reason: Additional IVPB Infusion Cefepime HCl 2 gm/ Sodium (Chloride) 100 mls @ 200 mls/hr IV Q12 [facility] Last Infusion: 10/21/19 07:20 Dose: Infused Documented by: Dextrose () 1,000 mls @ 125 mls/hr IV .Q8H [facility] Last Admin: 10/21/19 08:18 Dose: 125 mls/hr Documented by: Insulin Human Lispro (Humalog Kwikpen (Bkc)) 0 unit SC Q6 [facility]; Protocol Last Admin: 10/21/19 06:07 Dose: 1 units Documented by: Labetalol HCl (Trandate) 10 mg IV Q4H [facility] Last Admin: 10/21/19 08:02 Dose: 10 mg Documented by: Loperamide HCl (Imodium) 2 mg PO Q4H PRN PRN PRN Reason: LOOSE STOOLS Magnesium Hydroxide (Milk Of Magnesia) 30 ml PO DAILY PRN PRN PRN Reason: Constipation Methylprednisolone (Solu-Medrol) 40 mg IV Q12 [facility] Last Admin: 10/20/19 21:42 Dose: 40 mg Documented by: Morphine Sulfate () 2 mg IV Q2H PRN PRN PRN Reason: Pain Score 6-10/10 Last Admin: 10/19/19 21:51 Dose: 2 mg Documented by: Nitroglycerin (Nitrostat) 0.4 mg SUBLINGUAL Q5M PRN PRN Reason: CARDIAC/CHEST PAIN Psyllium Hydrophilic Mucilloid (Metamucil) 1 packet PO DAILY PRN PRN PRN Reason: Constipation Ranolazine (Ranexa) 1,000 mg PO DAILY [facility] Last Admin: 10/20/19 09:53 Dose: Not Given Documented by: Senna/Docusate Sodium (Senokot-S, Ami-Colace) 2 tablet PO BID PRN PRN PRN Reason: Constipation Sodium Chloride () 10 - 40 ml IV UD PRN PRN Reason: SALINE FLUSH Last Admin: 10/21/19 04:15 Dose: 10 ml Documented by: Trazodone HCl (Desyrel) 100 mg PO QHS PRN PRN Reason: INSOMNIA Medical Necessity - Tobacco Use Smoking Status: Former smoker Tobacco Use: Non-smoker Route of nutrition/ use of supplements: [] Nutritional Intake: [] IV Site: [] Moreira Catheter: [] - Assessment/Plan Antibiotics: [] Assessment/Plan: [] Active and Suspected Problems (Last Reviewed 07/15/18 @ 16:45 by April Hyatt) Severe sepsis (Acute) Acute on chronic respiratory failure with hypoxia (Acute) COPD exacerbation (Acute) Bilateral pneumonia (Acute) Suspected 2018 novel coronavirus infection (Acute) Pneumonia of both lower lobes (Acute) Respiratory failure (Acute) Subjective fever at home, reported chest pain, hypoxia, cough. COVID neg. Abx broadened from ceftriaxone to meropenem 10/15, now with high AST/ALT/LDH. No other clear cause of LFTs, now on cefepime. Lungs sound better and O2 much improved. LFTs now improving. Will follow
[2019-10-21] MEDS: Aspirin 300 MG Suppository RECTAL (11:43)
[2019-10-21] MEDS: Menthol/Lanolin/Calamine/Znox 113 GM Tube 1 APPLIC TOPICAL ×2 (11:44→22:52)
--- NOTE | 2019-10-21 13:27 | CASEMGMT ---
Social Work FLORIDALMA participated in interdisciplinary rounds. Pt has been haldol free for greater than 24 hours and received PT/OT and was dependent x2 for sitting EOB. FLORIDALMA placed phone call to pt Janee and discussed discharge plans. FLORIDALMA explained to Janee pt particiation in therapies and possible need for further rehab at time of discharge. SW read list of in network facilities to Janee and she would prefer [facility] if SNF is needed. Pt stating she is hopeful pt will be able to return home at d/c as he was independent prior to hospitalization. stating they do have a ramp into home, wheelchair, walker, and handicap accessible bathroom. Pt able to provide 24 hour care and an adult son lives with pt and and would also be able to assist if needed. Janee agreeable to place pt name on list for TCU and FLORIDALMA will touch base with Janee on Thursday to continue discharge planning discussion. Phone call to Lisa in TCU and referral information left on confidential VM. JOSÉ MIGUEL Garcia
[2019-10-21 13:49] LABS: Anion Gap 9 (5-15); BUN 64 mg/dL (7-18); BUN/Creat Ratio 65.7 RATIO (10-20); Calcium,Total 8.2 mg/dL (8.5-10.1); Chloride 121 mmol/L (98-107); Creatinine, Serum 0.97 mg/dL (0.70-1.30); EST Glomerular Filtration Rate 81 mL/min (>60); Est Glom Filt Rate - Afr Amer 98 mL/min (>60); Estimated Creatinine Clearance 55.13 ml/min; Glucose 233 mg/dL (74-106); Sodium Level 153 mmol/L (136-145)
[2019-10-21 14:06] LABS: Bedside Glucose 192 mg/dL (70-110)
[2019-10-21 17:36] LABS: Bedside Glucose 194 mg/dL (70-110)
[2019-10-22] VITALS (26 sets, daily range): BP systolic 107–160; BP diastolic 74–92; PULSE 60–105; RESP 14–30; TEMP 36.2–37; O2SAT 88–100
[2019-10-22] MEDS: Insulin Lispro 100 UNIT/ML INSULN.PEN SC ×4 (01:14→17:25)
[2019-10-22 04:11] LABS: Bedside Glucose 175 mg/dL (70-110)
[2019-10-22 06:16] LABS: Basophil# 0.03 X10^3/uL; Basophil% 0.2 % (0-1); Hematocrit 40.5 % (40-54); Hemoglobin 13.1 g/dL (13.0-16.5); Lymphocyte % 1.8 % (19-41); Mean Corp Hgb Conc 32.3 g/dL (32-36); Mean Corpuscular Hgb 31.4 pg (27.0-32.0); Mean Corpuscular Volume 97.1 fL (80-94); Monocyte# 0.94 X10^3/uL; Monocyte% 5.7 % (0-10); NRBC Flagged by Analyzer 1.5 % (0-5); Neutrophil # 15.02 X10^3/uL (2.7-7.7); Neutrophil % 91.4 % (47-70); POSITIVE COUNT YES; POSITIVE DIFFERENTIAL YES; POSITIVE MORPHOLOGY YES; RBC Distribution Width CV 13.4 % (11.6-14.6); Red Blood Count 4.17 M/mm3 (4.6-6.2); White Blood Count 16.4 K/mm3 (4.4-11.0)
[2019-10-22 06:19] LABS: Differential Indicated SCAN CRITERIA MET
[2019-10-22] MEDS: Ipratropium/Albuterol Sulfate 3 ML AMPUL.NEB INHALATION ×4 (06:39→18:45)
[2019-10-22 06:43] LABS: Anion Gap 7 (5-15); BUN 52 mg/dL (7-18); BUN/Creat Ratio 55.3 RATIO (10-20); Calcium,Total 8.1 mg/dL (8.5-10.1); Chloride 118 mmol/L (98-107); Creatinine, Serum 0.94 mg/dL (0.70-1.30); EST Glomerular Filtration Rate 84 mL/min (>60); Est Glom Filt Rate - Afr Amer 102 mL/min (>60); Glucose 219 mg/dL (74-106); Magnesium 2.8 mg/dL (1.6-2.6); Phosphorus 1.9 mg/dL (2.5-4.9); Potassium 3.8 mmol/L (3.5-5.1); Sodium Level 153 mmol/L (136-145)
[2019-10-22 06:50] LABS: Platelet Count 48 K/mm3 (150-450); Platelet Estimate MKD DEC (ADEQ)
--- NOTE | 2019-10-22 07:34 | PN_ITS ---
Subjective: Patient did okay overnight from a hemodynamic standpoint. Patient has been more directable and no Haldol has been required for over 24 hours. Patient still has difficulty with word searching and can be impulsive intermittently. Patient is still requiring minimal nasal cannula oxygen to maintain saturations, especially with sleep. General: Alert, Confused, Disoriented, - - Cachectic. Appears older than stated age. HEENT: Atraumatic, PERRLA, EOMI, Normocephalic, - - No scleral icterus or in jection noted Oral: No Gingival or Mucosal Lesions/ Ulcerations, Dry Mucosa Neck: Supple, No JVD, No Nodes, Trachea Midline Lungs: No wheeze, No rales, Diminished, Rhonchi - Improves with cough Cardiovascular: Regular rate, Regular Rhythm, Normal S1, Normal S2, No murmurs, No rub noted, No Gallop Abdomen: Bowel Sounds Present, Soft, Non Tender, Non-Distended Extremities: No clubbing, No cyanosis, No edema, Capillary Refill Less than 3 Seconds Skin: No rashes, No breakdown Musculoskeletal: No Tenderness to Palpation of Joints or Extremities Lymphatic: No Cervical, Supraclavicular, or Inguinal Adenopathy Neurological: Cranial nerves II-XII grossly intact, Neuro grossly intact Psych/Mental Status: Flat Affect, Impulsive Vital Signs Temp Pulse Resp BP Pulse Ox 37.0 C 91 22 H 147/92 H 90 10/22/19 04:00 10/22/19 07:00 10/22/19 07:00 10/22/19 07:00 10/22/19 07:00 Oxygen Flow Rate (L/min) [3] 4 Oxygen Flow Rate (L/min) [2] 4 Oxygen Flow Rate (L/min) [1 ( 4 Initial Baseline)] Oxygen Flow Rate (L/min) 1 Oxygen Delivery Method [3] Nasal Cannula Oxygen Delivery Method [2] Nasal Cannula Oxygen Delivery Method [1 ( Nasal Cannula Initial Baseline)] Oxygen Delivery Method Nasal Cannula Weight: 55.4 kg Body Mass Index (BMI) 19.7 Intake and Output for Last 24 Hours 10/20/19 10/21/19 10/22/19 23:59 23:59 23:59 Intake Total 1152.0 / 1152.0 2952.08 / 2952.08 164.58 / 164.58 Output Total 350 / 350 0 / 0 Balance 802.0 / 802.0 2952.08 / 2952.08 163.58 / 163.58 Labs (Last 48 Hours) 10/18/19 10/20/19 10/20/19 14:20 11:58 14:05 WBC RBC Hgb Hct MCV MCH MCHC RDW Std Deviation RDW Coeff of Xenia Plt Count MPV Immature Gran % (Auto) Neut % (Auto) Lymph % (Auto) [place] % (Auto) Eos % (Auto) Baso % (Auto) Absolute Neuts (auto) Absolute Lymphs (auto) Nucleated RBC % Differential Comment Diff Path Review Platelet Estimate Specimen Type Sample Site pH Bicarbonate Actual POC Total CO2 Base Excess O2 Saturation ABG pCO2 ABG pO2 O2 Delivery Device Liter Flow Blood Gas Notified Whom Blood Gas Notified Time Sodium 154 H Potassium 4.9 Chloride 121 H Carbon Dioxide 20.0 L Anion Gap 13 BUN 71 H Creatinine 1.20 Estim Creat Clear Calc 44.88 Est GFR (MDRD) Af Amer 77 Est GFR (MDRD) Non-Af 63 BUN/Creatinine Ratio 59.2 H Glucose 175 H Calcium 8.5 Phosphorus Magnesium Total Bilirubin AST ALT Alkaline Phosphatase Total Protein Albumin Globulin Albumin/Globulin Ratio Miscellaneous Cytology SEE PATHOLOGY REPORT POC Glucose 142 H 10/20/19 10/20/19 10/20/19 15:58 18:14 23:38 WBC RBC Hgb Hct MCV MCH MCHC RDW Std Deviation RDW Coeff of [place] Plt Count MPV Immature Gran % (Auto) Neut % (Auto) Lymph % (Auto) [place] % (Auto) Eos % (Auto) Baso % (Auto) Absolute Neuts (auto) Absolute Lymphs (auto) Nucleated RBC % Differential Comment Diff Path Review Platelet Estimate Specimen Type ART Sample Site L BRACHIAL pH 7.57 H Bicarbonate Actual 21.0 L POC Total CO2 22 Base Excess -1 O2 Saturation 96 ABG pCO2 22.8 L ABG pO2 67 L O2 Delivery Device Nasal Can Liter Flow 4.0 Blood Gas Notified Whom ICU MD Blood Gas Notified Time 1558 Sodium Potassium Chloride Carbon Dioxide Anion Gap BUN Creatinine Estim Creat Clear Calc Est GFR (MDRD) Af Amer Est GFR (MDRD) Non-Af BUN/Creatinine Ratio Glucose Calcium Phosphorus Magnesium Total Bilirubin AST ALT Alkaline Phosphatase Total Protein Albumin Globulin Albumin/Globulin Ratio Miscellaneous Cytology POC Glucose 200 H 192 H 10/21/19 10/21/19 10/21/19 04:40 04:40 06:05 WBC 15.7 H RBC 4.61 Hgb 14.5 Hct 45.1 MCV 97.8 H MCH 31.5 MCHC 32.2 RDW Std Deviation 48.1 H RDW Coeff of Xenia 13.5 Plt Count 70 L MPV 14.2 H Immature Gran % (Auto) 0.800 Neut % (Auto) 92.5 H Lymph % (Auto) 1.6 L [place] % (Auto) 5.0 Eos % (Auto) 0.0 Baso % (Auto) 0.1 Absolute Neuts (auto) 14.6 H Absolute Lymphs (auto) 0.25 L Nucleated RBC % 1.7 Differential Comment COMMENT Diff Path Review Platelet Estimate Specimen Type Sample Site pH Bicarbonate Actual POC Total CO2 Base Excess O2 Saturation ABG pCO2 ABG pO2 O2 Delivery Device Liter Flow Blood Gas Notified Whom Blood Gas Notified Time Sodium 155 H Potassium 3.9 Chloride 121 H Carbon Dioxide 25.0 Anion Gap 9 BUN 70 H Creatinine 1.14 Estim Creat Clear Calc 46.91 Est GFR (MDRD) Af Amer 81 Est GFR (MDRD) Non-Af 67 BUN/Creatinine Ratio 61.4 H Glucose 216 H Calcium 8.2 L Phosphorus Magnesium Total Bilirubin 3.30 H AST 826 H ALT 1181 H Alkaline Phosphatase 90 Total Protein 5.9 L Albumin 3.0 L Globulin 2.9 Albumin/Globulin Ratio 1.0 Miscellaneous Cytology POC Glucose 181 H 10/21/19 10/21/19 10/21/19 13:20 13:57 17:26 WBC RBC Hgb Hct MCV MCH MCHC RDW Std Deviation RDW Coeff of [place] Plt Count MPV Immature Gran % (Auto) Neut % (Auto) Lymph % (Auto) [place] % (Auto) Eos % (Auto) Baso % (Auto) Absolute Neuts (auto) Absolute Lymphs (auto) Nucleated RBC % Differential Comment Diff Path Review Platelet Estimate Specimen Type Sample Site pH Bicarbonate Actual POC Total CO2 Base Excess O2 Saturation ABG pCO2 ABG pO2 O2 Delivery Device Liter Flow Blood Gas Notified Whom Blood Gas Notified Time Sodium 153 H Potassium 4.0 Chloride 121 H Carbon Dioxide 23.0 Anion Gap 9 BUN 64 H Creatinine 0.97 Estim Creat Clear Calc 55.13 Est GFR (MDRD) Af Amer 98 Est GFR (MDRD) Non-Af 81 BUN/Creatinine Ratio 65.7 H Glucose 233 H Calcium 8.2 L Phosphorus Magnesium Total Bilirubin AST ALT Alkaline Phosphatase Total Protein Albumin Globulin Albumin/Globulin Ratio Miscellaneous Cytology POC Glucose 192 H 194 H 10/22/19 10/22/19 10/22/19 01:09 06:00 06:00 WBC 16.4 H RBC 4.17 L Hgb 13.1 Hct 40.5 MCV 97.1 H MCH 31.4 MCHC 32.3 RDW Std Deviation 48.0 H RDW Coeff of [place] 13.4 Plt Count 48 L* MPV Immature Gran % (Auto) 0.900 Neut % (Auto) 91.4 H Lymph % (Auto) 1.8 L [place] % (Auto) 5.7 Eos % (Auto) 0.0 Baso % (Auto) 0.2 Absolute Neuts (auto) 15.0 H Absolute Lymphs (auto) 0.30 L Nucleated RBC % 1.5 Differential Comment Diff Path Review May foll Platelet Estimate MKD DEC Specimen Type Sample Site pH Bicarbonate Actual POC Total CO2 Base Excess O2 Saturation ABG pCO2 ABG pO2 O2 Delivery Device Liter Flow Blood Gas Notified Whom Blood Gas Notified Time Sodium 153 H Potassium 3.8 Chloride 118 H Carbon Dioxide 28.0 Anion Gap 7 BUN 52 H Creatinine 0.94 Estim Creat Clear Calc 57.30 Est GFR (MDRD) Af Amer 102 Est GFR (MDRD) Non-Af 84 BUN/Creatinine Ratio 55.3 H Glucose 219 H Calcium 8.1 L Phosphorus 1.9 L Magnesium 2.8 H Total Bilirubin AST ALT Alkaline Phosphatase Total Protein Albumin Globulin Albumin/Globulin Ratio Miscellaneous Cytology POC Glucose 175 H Microbiology 10/18/19 14:20 Fluid - Thoracentesis Fluid Gram Stain - Final 10/18/19 14:20 Fluid - Thoracentesis Fluid Body Fluid Culture - Final No growth aerobically. 10/18/19 14:20 Fluid - Thoracentesis Fluid Anaerobic Culture - Preliminary No growth in 48 hours. Medical Necessity - Tobacco Use Smoking Status: Former smoker Tobacco Use: Non-smoker Assessment/Plan All Active Problems (Last Reviewed 07/15/18 @ 16:45 by April Hyatt) Severe sepsis (Acute) Acute on chronic respiratory failure with hypoxia (Acute) COPD exacerbation (Acute) Bilateral pneumonia (Acute) Suspected 2018 novel coronavirus infection (Acute) Pneumonia of both lower lobes (Acute) Respiratory failure (Acute) Bronchitis (Acute) URI (upper respiratory infection) (Acute) Sinusitis, acute maxillary (Acute) RECOMMENDATIONS: 1. Continue to wean supplemental oxygen to maintain saturations at or above 90%. 2. Monitor fluid status closely given needs for D5W 3. Continue bronchodilators and IV steroids. Could transition to prednisone when patient tolerates p.o. 4. Encourage incentive spirometer use and mobilize patient as tolerated. 5. Continue empiric antimicrobials per infectious diseases recommendations. 6. Aggressive blood pressure control 7. Continue D5W for hypernatremia and hyperchloremia 8. Okay to leave the intensive care unit from my perspective IMPRESSIONS: 1. Acute hypoxemic respiratory failure Likely secondary to COPD with exacerbation precipitated by bilateral lower lobe pneumonia. COVID testing was negative. The patient improved initially with supportive measures including invasive mechanical ventilatory support, antimicrobials, bronchodilators and steroids. He was able to be extubated on the morning of October 14. Patient is back to room air. Clinical suspicion for congestive heart failure is a partial etiology for initial respiratory failure as patient has had 2 separate thoracentesis procedures with transudate. Mentation continues to be a difficulty, but is improving. 2. Severe sepsis Improved from a hemodynamic standpoint. Appears to be secondary to underlying pulmonary infectious process. Continue current supportive measures and antimicrobials as noted above. Patient not able to take p.o. medications at this time secondary to mental status 3. Coronary artery disease status post CABG/hypertensive emergency Continue outpatient cardiac medication regimen. Patient was significant tachycardia and hypertension noted. Recommend aggressive blood pressure control. Significant tachycardia could be exacerbating diastolic dysfunction. Patient currently is n.p.o. secondary to mental status. Patient is more directable today. Continue to follow with speech therapy. Anticipate adding Coreg once patient can swallow. 4. Chronic alcohol dependency/chronic pain syndrome/a nxiety/depression/hypertension/hyperlipidemia/acute hepatitis/delirium Complicates care, management, recovery and prognosis. Continue home medications as indicated. Unclear if delirium is secondary to withdrawal symptoms versus hyperchloremia/hypernatremia. Patient will be continued on D5W and monitor. Any TPN should have minimal sodium and chloride. Inpatient E&M: [id number] [facility] Hosp L3
--- NOTE | 2019-10-22 09:16 | PN_ITS ---
Patient Problems: Active and Suspected Problems (Last Reviewed 07/15/18 @ 16:45 by April Hyatt) Severe sepsis (Acute) Acute on chronic respiratory failure with hypoxia (Acute) COPD exacerbation (Acute) Bilateral pneumonia (Acute) Suspected 2018 novel coronavirus infection (Acute) Pneumonia of both lower lobes (Acute) Respiratory failure (Acute) Reason for Visit: Follow-up on respiratory distress/severe sepsis secondary to pneumonia/delirium Subjective: Patient was seen and examined. He continues to be on improved, low 1-2L oxygen. His confusion appears to be better. He is oriented to himself now, less restless. No acute events overnight. Objective: Physical exam: General: Alert, oriented to tanya, on 1 L oxygen, cachetic HEENT: Atraumatic, PERRLA, EOMI, Normocephalic Oral: Dry oral mucosa Neck: Supple Lungs: Clear to auscultation, Normal air movement Cardiovascular: Regular rate, Regular Rhythm, Normal S1, Normal S2, No murmurs Abdomen: Bowel Sounds Present, Soft, Non Tender, Non-Distended, No Hepato- splenomegaly Extremities: No edema Skin: No rashes, No breakdown Musculoskeletal: No Tenderness to Palpation of Joints or Extremities Lymphatic: No Cervical, Supraclavicular, or Inguinal Adenopathy Neurological: Cranial nerves II-XII grossly intact, Neuro grossly intact Psych/Mental Status: Normal Affect, Appropriate Vitals/I&O's: Vital Signs Temp Pulse Resp BP Pulse Ox 98.3 F 92 21 H 131/87 H 93 10/22/19 08:00 10/22/19 08:00 10/22/19 08:00 10/22/19 08:00 10/22/19 08:00 Oxygen Flow Rate (L/min) [3] 4 Oxygen Flow Rate (L/min) [2] 4 Oxygen Flow Rate (L/min) [1 ( 4 Initial Baseline)] Oxygen Flow Rate (L/min) 1 Oxygen Delivery Method [3] Nasal Cannula Oxygen Delivery Method [2] Nasal Cannula Oxygen Delivery Method [1 ( Nasal Cannula Initial Baseline)] Oxygen Delivery Method Nasal Cannula Weight: 55.4 kg Body Mass Index (BMI) 19.7 Intake and Output for Last 24 Hours 10/20/19 10/21/19 10/22/19 23:59 23:59 23:59 Intake Total 1152.0 / 1152.0 2952.08 / 2952.08 1020.83 / 1020.83 Output Total 350 / 350 0 / 0 Balance 802.0 / 802.0 2952.08 / 2952.08 1019.83 / 1019.83 Microbiology Past 72 Hours 10/18/19 14:20 Fluid - Thoracentesis Fluid Gram Stain - Final 10/18/19 14:20 Fluid - Thoracentesis Fluid Body Fluid Culture - Final No growth aerobically. 10/18/19 14:20 Fluid - Thoracentesis Fluid Anaerobic Culture - Preliminary No growth in 48 hours. 10/14/19 00:38 Blood Culture (Wb) - Right Hand Blood Culture - Final No growth in 5 days. 10/14/19 00:40 Blood Culture (Wb) - Anticubital Left Blood Culture - Final No growth in 5 days. Laboratory Results 10/21/19 13:20: Sodium 153 H, Potassium 4.0, Chloride 121 H, Carbon Dioxide 23.0, Anion Gap 9, BUN 64 H, Creatinine 0.97, Estim Creat Clear Calc 55.13, Est GFR (MDRD) Af Amer 98, Est GFR (MDRD) Non-Af 81, BUN/Creatinine Ratio 65.7 H, Glucose 233 H, Calcium 8.2 L 10/21/19 13:57: POC Glucose 192 H 10/21/19 17:26: POC Glucose 194 H 10/22/19 01:09: POC Glucose 175 H 10/22/19 06:00: WBC 16.4 H, RBC 4.17 L, Hgb 13.1, Hct 40.5, MCV 97.1 H, MCH 31.4, MCHC 32.3, RDW Std Deviation 48.0 H, RDW Coeff of Xenia 13.4, Plt Count 48 L*, Immature Gran % (Auto) 0.900, Neut % (Auto) 91.4 H, Lymph % (Auto) 1.8 L, [place] % (Auto) 5.7, Eos % (Auto) 0.0, Baso % (Auto) 0.2, Absolute Neuts (auto) 15.0 H, Absolute Lymphs (auto) 0.30 L, Nucleated RBC % 1.5, Diff Path Review November, Platelet Estimate MKD 10/22/19 06:00: Sodium 153 H, Potassium 3.8, Chloride 118 H, Carbon Dioxide 28.0, Anion Gap 7, BUN 52 H, Creatinine 0.94, Estim Creat Clear Calc 57.30, Est GFR (MDRD) Af Amer 102, Est GFR (MDRD) Non-Af 84, BUN/Creatinine Ratio 55.3 H, Glucose 219 H, Calcium 8.1 L, Phosphorus 1.9 L, Magnesium 2.8 H Current Medications Acetaminophen (Tylenol) 650 mg PO Q6H PRN PRN PRN Reason: Pain Score 1-10/Temp > 100.7 F Al Hydroxide/Mg Hydroxide (Mylanta Ii) 30 ml PO Q6H PRN PRN PRN Reason: Gastric Burning Albuterol Sulfate (Ventolin Aerosols) 2.5 mg INHALATION Q2H PRN PRN PRN Reason: Dyspnea, wheezing Last Admin: 10/16/19 14:35 Dose: 2.5 mg Documented by: Albuterol/Ipratropium (Duoneb) 3 ml INHALATION Q4HWA.RT [facility] Last Admin: 10/22/19 06:39 Dose: 3 ml Documented by: Aspirin (Aspirin) 300 mg RECTAL DAILY [facility] Last Admin: 10/21/19 11:43 Dose: 300 mg Documented by: Atorvastatin Calcium (Lipitor) 10 mg PO QHS [facility] Last Admin: 10/21/19 22:52 Dose: Not Given Documented by: Bupropion HCl (Wellbutrin Sr (150mg Tablets)) 150 mg PO DAILY [facility] Last Admin: 10/22/19 09:11 Dose: Not Given Documented by: Calamine/Phenol (Calmoseptine Ointment) 1 applic TOPICAL BID [facility]; Protocol Last Admin: 10/21/19 22:52 Dose: 1 applicatio Documented by: Clopidogrel Bisulfate (Plavix) 75 mg PO DAILY [facility] Last Admin: 10/22/19 09:11 Dose: Not Given Documented by: Dextrose (D50w Syringe) 0 gm IV X1 PRN; Protocol PRN Reason: Hypoglycemia Dicyclomine HCl (Bentyl) 20 mg PO Q6H PRN PRN PRN Reason: abdominal discomfort Glucagon () 1 mg IM .X1 PRN PRN Reason: Hypoglycemia Guaifenesin (Robitussin) 10 ml PO Q4H PRN PRN PRN Reason: COUGH Haloperidol Lactate (Haldol) 5 mg IV Q6H PRN PRN PRN Reason: AGITATION Last Admin: 10/19/19 20:57 Dose: 5 mg Documented by: Sodium Chloride () 250 mls @ 15 mls/hr IV .[id number] PRN PRN Reason: Saline Flush Last Infusion: 10/19/19 19:00 Dose: Infused Documented by: Sodium Chloride () 250 mls @ 15 mls/hr IV .[id number] PRN PRN Reason: Additional IVPB Infusion Cefepime HCl 2 gm/ Sodium (Chloride) 100 mls @ 200 mls/hr IV Q12 [facility] Last Infusion: 10/21/19 23:54 Dose: Infused Documented by: Dextrose () 1,000 mls @ 125 mls/hr IV .Q8H [facility] Last Admin: 10/22/19 08:04 Dose: 125 mls/hr Documented by: Potassium Phosphate 15 mm/ (Sodium Chloride) 255 mls @ 125 mls/hr IV X1 ONE Stop: 10/22/19 10:02 Last Admin: 10/22/19 07:54 Dose: 125 mls/hr Documented by: Insulin Human Lispro (Humalog Kwikpen (Bkc)) 0 unit SC Q6 [facility]; Protocol Last Admin: 10/22/19 06:56 Dose: 2 units Documented by: Labetalol HCl (Trandate) 10 mg IV Q4H [facility] Last Admin: 10/22/19 07:54 Dose: 10 mg Documented by: Loperamide HCl (Imodium) 2 mg PO Q4H PRN PRN PRN Reason: LOOSE STOOLS Magnesium Hydroxide (Milk Of Magnesia) 30 ml PO DAILY PRN PRN PRN Reason: Constipation Methylprednisolone (Solu-Medrol) 40 mg IV DAILY [facility] Last Admin: 10/21/19 11:45 Dose: 40 mg Documented by: Morphine Sulfate () 2 mg IV Q2H PRN PRN PRN Reason: Pain Score 6-10/10 Last Admin: 10/19/19 21:51 Dose: 2 mg Documented by: Nitroglycerin (Nitrostat) 0.4 mg SUBLINGUAL Q5M PRN PRN Reason: CARDIAC/CHEST PAIN Psyllium Hydrophilic Mucilloid (Metamucil) 1 packet PO DAILY PRN PRN PRN Reason: Constipation Ranolazine (Ranexa) 1,000 mg PO DAILY [facility] Last Admin: 10/22/19 09:11 Dose: Not Given Documented by: Senna/Docusate Sodium (Senokot-S, Ami-Colace) 2 tablet PO BID PRN PRN PRN Reason: Constipation Sodium Chloride () 10 - 40 ml IV UD PRN PRN Reason: SALINE FLUSH Last Admin: 10/21/19 20:00 Dose: 30 ml Documented by: Trazodone HCl (Desyrel) 100 mg PO QHS PRN PRN Reason: INSOMNIA STROKE Vital Signs/Narrative: Vital Signs Temp Pulse Resp BP Pulse Ox 10/22/19 08:00 98.3 F 92 21 H 131/87 H 93 10/22/19 07:00 91 22 H 147/92 H 90 10/22/19 06:39 87 30 H 96 10/22/19 06:00 86 20 H 153/75 H 96 Medical Necessity - Tobacco Use Smoking Status: Former smoker Tobacco Use: Non-smoker Assessment/Plan All Active Problems (Last Reviewed 07/15/18 @ 16:45 by April Hyatt) Severe sepsis (Acute) Acute on chronic respiratory failure with hypoxia (Acute) COPD exacerbation (Acute) Bilateral pneumonia (Acute) Suspected 2018 novel coronavirus infection (Acute) Pneumonia of both lower lobes (Acute) Respiratory failure (Acute) Bronchitis (Acute) URI (upper respiratory infection) (Acute) Sinusitis, acute maxillary (Acute) 1. Acute delirium, unclear etiology, appears to be improving Multifactorial in etiology; hypoxia/opioid withdrawal/ICU delirium Less suspicious of alcohol withdrawal on account of history from his that since patient drinks [address] scan of brain negative for intracerebral bleed; cannot do a MRI because of vascular clips Ammonia is less than 10 Will continue to monitor 2. Acute hypoxic respiratory failure secondary to progressive bilateral pneumonia/aspiration pneumonia/bilateral transudative pleural effusion, improving COVID-19 negative on 10/15/19 status post extubation on 10/15/19, progressive improvement in oxygen requirements with decreasing level parameters Status post bilateral thoracocentesis; 500mls from right on 10/18/19, 350mls from left effusion on 10/20/19; findings are suggestive of transudative cause from Lights criteria. Continue IV cefepime, breathing treatments, IV solumedrol 3. Thrombocytopenia, unclear etiology, steady drop, off Lovenox (last dose 10/20/19) No schistocytes on peripheral smear 4. Elevated LFTs, unclear etiology, likely medication related (Meropenem), improving Off meropenem, currently on cefepime Previous LFTs and ultrasound of liver were normal Will continue to monitor 5. Severe sepsis secondary to bilateral pneumonia/ aspiration pneumonia, improving On IV cefepime 2g Q8h 6. 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 Hypertension, better controlled Continue on labetalol 10 mg every 4h 7. CAD status post CABG/hyperlipidemia/carotid artery stenosis/renal artery pseudoaneurysm/history of brain aneurysm Not been able to take aspirin, Plavix or beta-chantel On rectal aspirin 8. Anxiety/depression/chronic pain syndrome, on prn morphine Home antidepressants on hold 9. DVT PPx- SCDs 10. Code status - Full code Inpatient E&M: 64260 Subs Hosp L2
[2019-10-22] MEDS: Menthol/Lanolin/Calamine/Znox 113 GM Tube 1 APPLIC TOPICAL ×2 (09:52→20:23)
[2019-10-22] MEDS: Famotidine 200 MG/20 ML MDV 20 MG in 0.9% Normal Saline (Pres. free 8 ML 300 MG IV (09:52)
[2019-10-22 10:19] LABS: AST(SGOT) 469 U/L (15-37); Alanine Aminotransfer ALT/SGPT 924 U/L (16-61); Albumin, Serum 2.9 g/dL (3.2-5.0); Alkaline Phosphatase 84 U/L (45-117); Bilirubin, Direct 1.92 mg/dL (0.00-0.30); Globulin 2.6 g/dL (2.2-4.2); Protein, Total 5.5 g/dL (6.4-8.2)
[2019-10-22] MEDS: Aspirin 300 MG Suppository RECTAL (11:24)
[2019-10-22 12:15] LABS: Osmolality, Urine 788 mOsm/KG
[2019-10-22 12:26] LABS: Urine Sodium 16 mmol/L (Not Establ.)
[2019-10-22 12:31] LABS: Bedside Glucose 173 mg/dL (70-110)
[2019-10-22 13:24] LABS: Absolute Lymphocyte Count 0.19 X10^3/uL (0.83-4.51); Absolute Neutrophil Count 16.1 X10^3/uL (2.0-7.7); Basophil# 0.02 X10^3/uL; Basophil% 0.1 % (0-1); Hematocrit 42.1 % (40-54); Hemoglobin 13.6 g/dL (13.0-16.5); Lymphocyte # 0.19 X10^3/ul (4.0); Lymphocyte % 1.1 % (19-41); Mean Corp Hgb Conc 32.3 g/dL (32-36); Mean Corpuscular Hgb 31.8 pg (27.0-32.0); Mean Corpuscular Volume 98.4 fL (80-94); Monocyte# 0.67 X10^3/uL; Monocyte% 3.9 % (0-10); NRBC Flagged by Analyzer 2.7 % (0-5); Neutrophil # 16.11 X10^3/uL (2.7-7.7); POSITIVE COUNT YES; POSITIVE DIFFERENTIAL YES; POSITIVE MORPHOLOGY YES; RBC Distribution Width CV 13.5 % (11.6-14.6); RBC Distribution Width SD 49.3 fl (35.1-43.9); Red Blood Count 4.28 M/mm3 (4.6-6.2); White Blood Count 17.1 K/mm3 (4.4-11.0)
[2019-10-22 13:28] LABS: Anion Gap 7 (5-15); BUN 48 mg/dL (7-18); BUN/Creat Ratio 52.4 RATIO (10-20); Calcium,Total 7.6 mg/dL (8.5-10.1); Chloride 115 mmol/L (98-107); Creatinine, Serum 0.92 mg/dL (0.70-1.30); Differential Indicated SCAN CRITERIA MET; EST Glomerular Filtration Rate 87 mL/min (>60); Est Glom Filt Rate - Afr Amer 105 mL/min (>60); Estimated Creatinine Clearance 58.54 ml/min; Glucose 203 mg/dL (74-106); Platelet Count 47 K/mm3 (150-450); Sodium Level 149 mmol/L (136-145)
[2019-10-22 13:41] LABS: Phosphorus 2.7 mg/dL (2.5-4.9)
[2019-10-22 14:09] LABS: Platelet Estimate MKD DEC (ADEQ)
[2019-10-22 14:10] LABS: Red Cell Morphology NORM C+C NORMAL (NORM C&C)
[2019-10-22] MEDS: 0.9% Saline Lock 10 ML Syringe IV ×3 (15:08→20:23)
--- NOTE | 2019-10-22 19:25 | CPS ---
pt did not luis a aero tx well-kept pulling off mask-pt was 88% on room air-placed back on 1.5 l/m via nc-nurse aware
[2019-10-22 19:37] LABS: Anion Gap 7 (5-15); BUN 47 mg/dL (7-18); BUN/Creat Ratio 53.4 RATIO (10-20); Calcium,Total 7.9 mg/dL (8.5-10.1); Chloride 119 mmol/L (98-107); Creatinine, Serum 0.88 mg/dL (0.70-1.30); EST Glomerular Filtration Rate 91 mL/min (>60); Est Glom Filt Rate - Afr Amer 110 mL/min (>60); Estimated Creatinine Clearance 61.21 ml/min; Glucose 242 mg/dL (74-106); Sodium Level 148 mmol/L (136-145)
[2019-10-23] VITALS (29 sets, daily range): BP systolic 112–163; BP diastolic 82–97; PULSE 79–92; RESP 12–35; TEMP 36.3–37.1; O2SAT 94–100; BMI 21.0
--- NOTE | 2019-10-23 | CPS ---
PT HAS NOTICEABLE PERIODS OF APNEA RN AWARE
[2019-10-23] MEDS: Insulin Lispro 100 UNIT/ML INSULN.PEN SC ×5 (00:08→23:31)
[2019-10-23 00:41] LABS: Bedside Glucose 255 mg/dL (70-110)
--- NOTE | 2019-10-23 04:15 | NURSING ---
RN ASKED FOR DR CEJA TO COME LOOK AT PATIENT, DUE TO APNEA BREATHING AT TIMES, CONFUSION, AND MOTTLED FEET. CAME AND ASSESSED PATIENT AND GAVE NO NEW ORDERS. VS ARE STABLE AT THIS TIME.
[2019-10-23 05:36] LABS: Bedside Glucose 212 mg/dL (70-110)
[2019-10-23 07:01] LABS: Absolute Lymphocyte Count 0.08 X10^3/uL (0.83-4.51); Absolute Neutrophil Count 19.4 X10^3/uL (2.0-7.7); Basophil# 0.05 X10^3/uL; Basophil% 0.2 % (0-1); Hematocrit 42.7 % (40-54); Hemoglobin 14.1 g/dL (13.0-16.5); Lymphocyte # 0.08 X10^3/ul (4.0); Lymphocyte % 0.4 % (19-41); Mean Corpuscular Hgb 32.1 pg (27.0-32.0); Mean Corpuscular Volume 97.3 fL (80-94); Monocyte# 0.97 X10^3/uL; Monocyte% 4.7 % (0-10); NRBC Flagged by Analyzer 4.3 % (0-5); Neutrophil # 19.43 X10^3/uL (2.7-7.7); Neutrophil % 93.9 % (47-70); POSITIVE COUNT YES; POSITIVE DIFFERENTIAL YES; RBC Distribution Width CV 13.2 % (11.6-14.6); RBC Distribution Width SD 47.8 fl (35.1-43.9); Red Blood Count 4.39 M/mm3 (4.6-6.2); White Blood Count 20.7 K/mm3 (4.4-11.0)
[2019-10-23 07:02] LABS: Differential Indicated SCAN CRITERIA MET; Platelet Count 40 K/mm3 (150-450)
[2019-10-23 07:17] LABS: Differential Comment SCANNED; Platelet Estimate MKD DEC (ADEQ)
[2019-10-23 07:18] LABS: Reactive Lymphocyte RARE
[2019-10-23 07:25] LABS: AST(SGOT) 308 U/L (15-37); Alanine Aminotransfer ALT/SGPT 776 U/L (16-61); Albumin, Serum 2.8 g/dL (3.2-5.0); Alkaline Phosphatase 124 U/L (45-117); Anion Gap 8 (5-15); BUN 45 mg/dL (7-18); BUN/Creat Ratio 47.5 RATIO (10-20); Calcium,Total 7.7 mg/dL (8.5-10.1); Chloride 115 mmol/L (98-107); Cholesterol 131 mg/dL (200); Creatinine, Serum 0.95 mg/dL (0.70-1.30); EST Glomerular Filtration Rate 83 mL/min (>60); Est Glom Filt Rate - Afr Amer 101 mL/min (>60); Estimated Creatinine Clearance 60.48 ml/min; Globulin 2.9 g/dL (2.2-4.2); Glucose 238 mg/dL (74-106); High Density Lipoprotein 16 mg/dL; Potassium 4.4 mmol/L (3.5-5.1); Protein, Total 5.7 g/dL (6.4-8.2); Sodium Level 145 mmol/L (136-145); Triglycerides 171 mg/dL; Very Low Density Lipoprotein 34 mg/dL (5-40)
[2019-10-23] MEDS: Ipratropium/Albuterol Sulfate 3 ML AMPUL.NEB INHALATION ×4 (07:35→20:20)
--- NOTE | 2019-10-23 07:43 | PN_ITS ---
Patient Problems: Active and Suspected Problems (Last Reviewed 07/15/18 @ 16:45 by April Hyatt) Severe sepsis (Acute) Acute on chronic respiratory failure with hypoxia (Acute) COPD exacerbation (Acute) Bilateral pneumonia (Acute) Suspected 2019 novel coronavirus infection (Acute) Pneumonia of both lower lobes (Acute) Respiratory failure (Acute) Subjective: Patient transferred out of the intensive care unit. Patient has done okay overnight on minimal nasal cannula oxygen. Patient is more interactive today and did not require any Haldol for agitation. - Physical Exam Vitals/I&O's: Vital Signs Temp Pulse Resp BP Pulse Ox 37.1 C 88 20 H 150/88 H 95 10/23/19 04:00 10/23/19 06:45 10/23/19 04:00 10/23/19 04:00 10/23/19 04:00 Oxygen Flow Rate (L/min) [3] 4 Oxygen Flow Rate (L/min) [2] 4 Oxygen Flow Rate (L/min) [1 ( 4 Initial Baseline)] Oxygen Flow Rate (L/min) 1.5 Oxygen Delivery Method [3] Nasal Cannula Oxygen Delivery Method [2] Nasal Cannula Oxygen Delivery Method [1 ( Nasal Cannula Initial Baseline)] Oxygen Delivery Method Nasal Cannula Weight: 59.1 kg Body Mass Index (BMI) 19.7 Intake and Output for Last 24 Hours 10/21/19 10/22/19 10/23/19 23:59 23:59 23:59 Intake Total 2952.08 / 2952.08 3106.25 / 3106.25 630 / 630 Output Total 0 / 0 101 / 101 Balance 2952.08 / 2952.08 3005.25 / 3005.25 630 / 630 General: Alert, Confused, Disoriented, - - No conversational dyspnea, but speaks in 3-4 word sentences given mental status HEENT: Atraumatic, PERRLA, EOMI, Normocephalic, - - No scleral icterus or injection Oral: Moist Mucosa, No Gingival or Mucosal Lesions/ Ulcerations Neck: Supple, No JVD, No Nodes, Trachea Midline Lungs: No rhonchi, No wheeze, No rales, Diminished Cardiovascular: Regular rate, Regular Rhythm, Normal S1, Normal S2, No murmurs, No rub noted, No Gallop Abdomen: Bowel Sounds Present, Soft, Non Tender, Non-Distended Extremities: No cyanosis, No edema, Capillary Refill Less than 3 Seconds, - - Vascular insufficiency changes of the peripheral extremities noted Skin: No rashes, No breakdown Musculoskeletal: No Tenderness to Palpation of Joints or Extremities Lymphatic: No Cervical, Supraclavicular, or Inguinal Adenopathy Neurological: Cranial nerves II-XII grossly intact, Neuro grossly intact, Motor Exam 5/5 strength throughout Psych/Mental Status: Flat Affect, Restless Microbiology Past 72 Hours 10/18/19 14:20 Fluid - Thoracentesis Fluid Gram Stain - Final 10/18/19 14:20 Fluid - Thoracentesis Fluid Body Fluid Culture - Final No growth aerobically. 10/18/19 14:20 Fluid - Thoracentesis Fluid Anaerobic Culture - Final No growth in 5 days. Laboratory Results 10/22/19 06:00: Total Bilirubin 3.50 H, Direct Bilirubin 1.92 H, AST 469 H, ALT 924 H, Alkaline Phosphatase 84, Total Protein 5.5 L, Albumin 2.9 L, Globulin 2.6 10/22/19 11:30: Urine Osmolality 788 10/22/19 11:30: Urine Creatinine 81.20 10/22/19 11:30: Ur Random Sodium 16 10/22/19 12:19: POC Glucose 173 H 10/22/19 13:00: Sodium 149 H, Potassium 4.0, Chloride 115 H, Carbon Dioxide 27.0, Anion Gap 7, BUN 48 H, Creatinine 0.92, Estim Creat Clear Calc 58.54, Est GFR (MDRD) Af Amer 105, Est GFR (MDRD) Non-Af 87, BUN/Creatinine Ratio 52.4 H, Glucose 203 H, Calcium 7.6 L 10/22/19 13:00: WBC 17.1 H, RBC 4.28 L, Hgb 13.6, Hct 42.1, MCV 98.4 H, MCH 31.8, MCHC 32.3, RDW Std Deviation 49.3 H, RDW Coeff of Xenia 13.5, Plt Count 47 L*, Immature Gran % (Auto) 0.900, Neut % (Auto) 94.0 H, Lymph % (Auto) 1.1 L, [place] % (Auto) 3.9, Eos % (Auto) 0.0, Baso % (Auto) 0.1, Absolute Neuts (auto) 16.1 H, Absolute Lymphs (auto) 0.19 L, Nucleated RBC % 2.7, Differential Comment COMMENT, Diff Path Review May celsa, Platelet Estimate MKD JUN, Plt Morphology Comment COMMENT, RBC Morphology NORM C+C 10/22/19 13:00: Phosphorus 2.7 10/22/19 19:10: Sodium 148 H, Potassium 4.0, Chloride 119 H, Carbon Dioxide 22.0, Anion Gap 7, BUN 47 H, Creatinine 0.88, Estim Creat Clear Calc 61.21, Est GFR (MDRD) Af Amer 110, Est GFR (MDRD) Non-Af 91, BUN/Creatinine Ratio 53.4 H, Glucose 242 H, Calcium 7.9 L 10/23/19 00:06: POC Glucose 255 H 10/23/19 05:19: POC Glucose 212 H 10/23/19 06:45: WBC 20.7 H, RBC 4.39 L, Hgb 14.1, Hct 42.7, MCV 97.3 H, MCH 32.1 H, MCHC 33.0, RDW Std Deviation 47.8 H, RDW Coeff of [place] 13.2, Plt Count 40 L*, Immature Gran % (Auto) 0.800, Neut % (Auto) 93.9 H, Lymph % (Auto) 0.4 L, [place] % (Auto) 4.7, Eos % (Auto) 0.0, Baso % (Auto) 0.2, Absolute Neuts (auto) 19.4 H, Absolute Lymphs (auto) 0.08 L, Nucleated RBC % 4.3, Differential Comment SCANNED, Diff Path Review Rosy steen, Reactive Lymphocytes RARE, Platelet Estimate MKD 10/23/19 06:45: Sodium 145, Potassium 4.4, Chloride 115 H, Carbon Dioxide 22.0, Anion Gap 8, BUN 45 H, Creatinine 0.95, Estim Creat Clear Calc 60.48, Est GFR (MDRD) Af Amer 101, Est GFR (MDRD) Non-Af 83, BUN/Creatinine Ratio 47.5 H, Glucose 238 H, Calcium 7.7 L, Phosphorus 2.0 L, Total Bilirubin 3.70 H, AST 308 H, ALT 776 H, Alkaline Phosphatase 124 H, Total Protein 5.7 L, Albumin 2.8 L, Globulin 2.9, Albumin/Globulin Ratio 1.0, Triglycerides 171, Cholesterol 131, LDL Cholesterol 81, VLDL Cholesterol 34, HDL Cholesterol 16 L Current Medications Acetaminophen (Tylenol) 650 mg PO Q6H PRN PRN PRN Reason: Pain Score 1-10/Temp > 100.7 F Al Hydroxide/Mg Hydroxide (Mylanta Ii) 30 ml PO Q6H PRN PRN PRN Reason: Gastric Burning Albuterol Sulfate (Ventolin Aerosols) 2.5 mg INHALATION Q2H PRN PRN PRN Reason: Dyspnea, wheezing Last Admin: 10/16/19 14:35 Dose: 2.5 mg Documented by: Albuterol/Ipratropium (Duoneb) 3 ml INHALATION Q4HWA.RT [facility] Last Admin: 10/23/19 07:35 Dose: 3 ml Documented by: Aspirin (Aspirin) 300 mg RECTAL DAILY [facility] Last Admin: 10/22/19 11:24 Dose: 300 mg Documented by: Atorvastatin Calcium (Lipitor) 10 mg PO QHS [facility] Last Admin: 10/22/19 19:32 Dose: Not Given Documented by: Bupropion HCl (Wellbutrin Sr (150mg Tablets)) 150 mg PO DAILY [facility] Last Admin: 10/22/19 09:11 Dose: Not Given Documented by: Calamine/Phenol (Calmoseptine Ointment) 1 applic TOPICAL BID [facility]; Protocol Last Admin: 10/22/19 20:23 Dose: 1 applicatio Documented by: Clopidogrel Bisulfate (Plavix) 75 mg PO DAILY [facility] Last Admin: 10/22/19 09:11 Dose: Not Given Documented by: Dextrose (D50w Syringe) 0 gm IV X1 PRN; Protocol PRN Reason: Hypoglycemia Glucagon () 1 mg IM .X1 PRN PRN Reason: Hypoglycemia Guaifenesin (Robitussin) 10 ml PO Q4H PRN PRN PRN Reason: COUGH Sodium Chloride () 250 mls @ 15 mls/hr IV .[id number] PRN PRN Reason: Saline Flush Last Infusion: 10/19/19 19:00 Dose: Infused Documented by: Sodium Chloride () 250 mls @ 15 mls/hr IV .[id number] PRN PRN Reason: Additional IVPB Infusion Cefepime HCl 2 gm/ Sodium (Chloride) 100 mls @ 200 mls/hr IV Q12 [facility] Last Infusion: 10/22/19 21:42 Dose: Infused Documented by: Dextrose () 1,000 mls @ 75 mls/hr IV .[id number] [facility] Last Admin: 10/23/19 04:24 Dose: 75 mls/hr Documented by: Famotidine 40 mg/ Amino Acids 2,004 mls @ 42 mls/hr IV .Q24H [facility] Stop: 10/23/19 15:47 Last Infusion: 10/22/19 23:12 Dose: 42 mls/hr Documented by: Insulin Human Lispro (Humalog Kwikpen (Bkc)) 0 unit SC Q6 [facility]; Protocol Last Admin: 10/23/19 05:22 Dose: 2 units Documented by: Labetalol HCl (Trandate) 10 mg IV Q4H [facility] Last Admin: 10/23/19 04:24 Dose: 10 mg Documented by: Loperamide HCl (Imodium) 2 mg PO Q4H PRN PRN PRN Reason: LOOSE STOOLS Magnesium Hydroxide (Milk Of Magnesia) 30 ml PO DAILY PRN PRN PRN Reason: Constipation Methylprednisolone (Solu-Medrol) 40 mg IV DAILY [facility] Last Admin: 10/22/19 09:52 Dose: 40 mg Documented by: Morphine Sulfate () 2 mg IV Q2H PRN PRN PRN Reason: Pain Score 6-10/10 Last Admin: 10/19/19 21:51 Dose: 2 mg Documented by: Nitroglycerin (Nitrostat) 0.4 mg SUBLINGUAL Q5M PRN PRN Reason: CARDIAC/CHEST PAIN Psyllium Hydrophilic Mucilloid (Metamucil) 1 packet PO DAILY PRN PRN PRN Reason: Constipation Ranolazine (Ranexa) 1,000 mg PO DAILY [facility] Last Admin: 10/22/19 09:11 Dose: Not Given Documented by: Senna/Docusate Sodium (Senokot-S, Ami-Colace) 2 tablet PO BID PRN PRN PRN Reason: Constipation Sodium Chloride () 10 - 40 ml IV UD PRN PRN Reason: SALINE FLUSH Last Admin: 10/22/19 20:23 Dose: 10 ml Documented by: Medical Necessity - Tobacco Use Smoking Status: Former smoker Tobacco Use: Non-smoker Assessment/Plan All Active Problems (Last Reviewed 07/15/18 @ 16:45 by April Marques Severe sepsis (Acute) Acute on chronic respiratory failure with hypoxia (Acute) COPD exacerbation (Acute) Bilateral pneumonia (Acute) Suspected 2019 novel coronavirus infection (Acute) Pneumonia of both lower lobes (Acute) Respiratory failure (Acute) Bronchitis (Acute) URI (upper respiratory infection) (Acute) Sinusitis, acute maxillary (Acute) RECOMMENDATIONS: 1. Continue to wean supplemental oxygen to maintain saturations at or above 90%. 2. Would discontinue D5W given congestive heart failure 3. Continue bronchodilators and IV steroids. Would initiate prednisone and Coreg if patient passes swallow eval 4. Encourage incentive spirometer use and mobilize patient as tolerated. 5. Continue empiric antimicrobials per infectious diseases recommendations. 6. Hemodynamically stable on minimal nasal cannula oxygen. Will sign off from a critical care perspective IMPRESSIONS: 1. Acute hypoxemic respiratory failure Likely secondary to COPD with exacerbation precipitated by bilateral lower lobe pneumonia. COVID testing was negative. The patient improved initially with supportive measures including invasive mechanical ventilatory support, antimicrobials, bronchodilators and steroids. He was able to be extubated on the morning of October 14. Patient is back to minimal nasal cannula. Clinical suspicion for congestive heart failure is a partial etiology for initial respiratory failure as patient has had 2 separate thoracentesis procedures with transudate. Mentation continues to be a difficulty, but is improving slowly. May be able to discontinue steroids completely in 24 hours 2. Severe sepsis Improved from a hemodynamic standpoint. Appears to be secondary to underlying pulmonary infectious process. Continue current supportive measures and antimicrobials as noted above. Patient not able to take p.o. medications at this time secondary to mental status 3. Coronary artery disease status post CABG/hypertensive emergency Continue outpatient cardiac medication regimen. Patient was significant tachycardia and hypertension noted. Recommend aggressive blood pressure control. Significant tachycardia could be exacerbating diastolic dysfunction. Patient currently is n.p.o. secondary to mental status. Patient is more directable today. Continue to follow with speech therapy. Anticipate adding Coreg for hypertension once patient can swallow. 4. Chronic alcohol dependency/chronic pain syndrome/anxiety/depression/hypertension/hyperlipidemia/acute hepatitis/delirium Complicates care, management, recovery and prognosis. Continue home medications as indicated. Unclear if delirium is secondary to withdrawal symptoms versus hyperchloremia/hypernatremia. Patient will be continued on D5W and monitor. Any TPN should have minimal sodium and chloride. Inpatient E&M: 86995 Subs Hosp L2
[2019-10-23] MEDS: Menthol/Lanolin/Calamine/Znox 113 GM Tube 1 APPLIC TOPICAL ×2 (09:02→21:37)
[2019-10-23 10:16] LABS: Magnesium 2.7 mg/dL (1.6-2.6)
--- NOTE | 2019-10-23 10:25 | PN_ITS ---
Patient Problems: Active and Suspected Problems (Last Reviewed 07/15/18 @ 16:45 by April Hyatt) Severe sepsis (Acute) Acute on chronic respiratory failure with hypoxia (Acute) COPD exacerbation (Acute) Bilateral pneumonia (Acute) Suspected 2018 novel coronavirus infection (Acute) Pneumonia of both lower lobes (Acute) Respiratory failure (Acute) Reason for Visit: Follow-up on multiple comorbidities - acute delirium/hypoxic respiratory failure Subjective: Patient seen and examined. He appears very lethargic. Will open his eyes to answer to his name, mumbles and goes to sleep. He is seen with longer periods of apnea>7 seconds that appears to go on until he is shaken/woken up. ABG showed normal pH, low oxygenation; restarted back on Bipap. Not given any sedatives or pain medications overnight. Objective: Physical exam: General: Confused, lethargic, oriented to self, on 1 L oxygen, cachetic HEENT: Atraumatic, PERRLA, EOMI, Normocephalic Oral: Dry oral mucosa Neck: Supple Lungs: Clear to auscultation, Normal air movement Cardiovascular: Regular rate, Regular Rhythm, Normal S1, Normal S2, No murmurs Abdomen: Bowel Sounds Present, Soft, Non Tender, Non-Distended, No Hepato- splenomegaly Extremities: No edema Skin: No rashes, No breakdown Musculoskeletal: No Tenderness to Palpation of Joints or Extremities Lymphatic: No Cervical, Supraclavicular, or Inguinal Adenopathy Neurological: Cranial nerves II-XII grossly intact, Neuro grossly intact Psych/Mental Status: Normal Affect, Appropriate Vitals/I&O's: Vital Signs Temp Pulse Resp BP Pulse Ox 97.9 F 92 25 H 158/96 H 100 10/23/19 10:00 10/23/19 10:00 10/23/19 10:00 10/23/19 10:00 10/23/19 10:00 Oxygen Flow Rate (L/min) [3] 4 Oxygen Flow Rate (L/min) [2] 4 Oxygen Flow Rate (L/min) [1 ( 4 Initial Baseline)] Oxygen Flow Rate (L/min) 2 Oxygen Delivery Method [3] Nasal Cannula Oxygen Delivery Method [2] Nasal Cannula Oxygen Delivery Method [1 ( Nasal Cannula Initial Baseline)] Oxygen Delivery Method Bi-pap Weight: 59.1 kg Body Mass Index (BMI) 19.7 Intake and Output for Last 24 Hours 10/21/19 10/22/19 10/23/19 23:59 23:59 23:59 Intake Total 2952.08 / 2952.08 3106.25 / 3106.25 770 / 770 Output Total 0 / 0 101 / 101 Balance 2952.08 / 2952.08 3005.25 / 3005.25 770 / 770 Microbiology Past 72 Hours 10/18/19 14:20 Fluid - Thoracentesis Fluid Gram Stain - Final 10/18/19 14:20 Fluid - Thoracentesis Fluid Body Fluid Culture - Final No growth aerobically. 10/18/19 14:20 Fluid - Thoracentesis Fluid Anaerobic Culture - Final No growth in 5 days. Laboratory Results 10/22/19 11:30: Urine Osmolality 788 10/22/19 11:30: Urine Creatinine 81.20 10/22/19 11:30: Ur Random Sodium 16 10/22/19 12:19: POC Glucose 173 H 10/22/19 13:00: Sodium 149 H, Potassium 4.0, Chloride 115 H, Carbon Dioxide 27.0, Anion Gap 7, BUN 48 H, Creatinine 0.92, Estim Creat Clear Calc 58.54, Est GFR (MDRD) Af Amer 105, Est GFR (MDRD) Non-Af 87, BUN/Creatinine Ratio 52.4 H, Glucose 203 H, Calcium 7.6 L 10/22/19 13:00: WBC 17.1 H, RBC 4.28 L, Hgb 13.6, Hct 42.1, MCV 98.4 H, MCH 31.8, MCHC 32.3, RDW Std Deviation 49.3 H, RDW Coeff of Xenia 13.5, Plt Count 47 L*, Immature Gran % (Auto) 0.900, Neut % (Auto) 94.0 H, Lymph % (Auto) 1.1 L, [place] % (Auto) 3.9, Eos % (Auto) 0.0, Baso % (Auto) 0.1, Absolute Neuts (auto) 16.1 H, Absolute Lymphs (auto) 0.19 L, Nucleated RBC % 2.7, Differential Comment COMMENT, Diff Path Review May foll, Platelet Estimate MKD DEC, Plt Morphology Comment COMMENT, RBC Morphology NORM C+C 10/22/19 13:00: Phosphorus 2.7 10/22/19 19:10: Sodium 148 H, Potassium 4.0, Chloride 119 H, Carbon Dioxide 22.0, Anion Gap 7, BUN 47 H, Creatinine 0.88, Estim Creat Clear Calc 61.21, Est GFR (MDRD) Af Amer 110, Est GFR (MDRD) Non-Af 91, BUN/Creatinine Ratio 53.4 H, Glucose 242 H, Calcium 7.9 L 10/23/19 00:06: POC Glucose 255 H 10/23/19 05:19: POC Glucose 212 H 10/23/19 06:45: WBC 20.7 H, RBC 4.39 L, Hgb 14.1, Hct 42.7, MCV 97.3 H, MCH 32.1 H, MCHC 33.0, RDW Std Deviation 47.8 H, RDW Coeff of Xenia 13.2, Plt Count 40 L*, Immature Gran % (Auto) 0.800, Neut % (Auto) 93.9 H, Lymph % (Auto) 0.4 L, [place] % (Auto) 4.7, Eos % (Auto) 0.0, Baso % (Auto) 0.2, Absolute Neuts (auto) 19.4 H, Absolute Lymphs (auto) 0.08 L, Nucleated RBC % 4.3, Differential Comment SCANNED, Diff Path Review November, Reactive Lymphocytes RARE, Platelet Estimate MKD 10/23/19 06:45: Sodium 145, Potassium 4.4, Chloride 115 H, Carbon Dioxide 22.0, Anion Gap 8, BUN 45 H, Creatinine 0.95, Estim Creat Clear Calc 60.48, Est GFR (MDRD) Af Amer 101, Est GFR (MDRD) Non-Af 83, BUN/Creatinine Ratio 47.5 H, Glucose 238 H, Calcium 7.7 L, Phosphorus 2.0 L, Total Bilirubin 3.70 H, AST 308 H, ALT 776 H, Alkaline Phosphatase 124 H, Total Protein 5.7 L, Albumin 2.8 L, Globulin 2.9, Albumin/Globulin Ratio 1.0, Triglycerides 171, Cholesterol 131, LDL Cholesterol 81, VLDL Cholesterol 34, HDL Cholesterol 16 L 10/23/19 06:45: Magnesium 2.7 H Current Medications Acetaminophen (Tylenol) 650 mg PO Q6H PRN PRN PRN Reason: Pain Score 1-10/Temp > 100.7 F Albuterol Sulfate (Ventolin Aerosols) 2.5 mg INHALATION Q2H PRN PRN PRN Reason: Dyspnea, wheezing Last Admin: 10/16/19 14:35 Dose: 2.5 mg Documented by: Albuterol/Ipratropium (Duoneb) 3 ml INHALATION Q4HWA.RT [facility] Last Admin: 10/23/19 07:35 Dose: 3 ml Documented by: Calamine/Phenol (Calmoseptine Ointment) 1 applic TOPICAL BID [facility]; Protocol Last Admin: 10/23/19 09:02 Dose: 1 applicatio Documented by: Dextrose (D50w Syringe) 0 gm IV X1 PRN; Protocol PRN Reason: Hypoglycemia Glucagon () 1 mg IM .X1 PRN PRN Reason: Hypoglycemia Guaifenesin (Robitussin) 10 ml PO Q4H PRN PRN PRN Reason: COUGH Sodium Chloride () 250 mls @ 15 mls/hr IV .[id number] PRN PRN Reason: Saline Flush Last Infusion: 10/19/19 19:00 Dose: Infused Documented by: Sodium Chloride () 250 mls @ 15 mls/hr IV .[id number] PRN PRN Reason: Additional IVPB Infusion Cefepime HCl 2 gm/ Sodium (Chloride) 100 mls @ 200 mls/hr IV Q12 [facility] Last Infusion: 10/23/19 09:48 Dose: Infused Documented by: Famotidine 40 mg/ Amino Acids 2,004 mls @ 42 mls/hr IV .Q24H [facility] Stop: 10/23/19 15:47 Last Infusion: 10/22/19 23:12 Dose: 42 mls/hr Documented by: Insulin Human Lispro (Humalog Kwikpen (Bkc)) 0 unit SC Q6 [facility]; Protocol Last Admin: 10/23/19 05:22 Dose: 2 units Documented by: Labetalol HCl (Trandate) 10 mg IV Q4H [facility] Last Admin: 10/23/19 08:58 Dose: Not Given Documented by: Methylprednisolone (Solu-Medrol) 40 mg IV DAILY [facility] Last Admin: 10/23/19 09:02 Dose: 40 mg Documented by: Morphine Sulfate () 2 mg IV Q2H PRN PRN PRN Reason: Pain Score 6-10/10 Last Admin: 10/19/19 21:51 Dose: 2 mg Documented by: Nitroglycerin (Nitrostat) 0.4 mg SUBLINGUAL Q5M PRN PRN Reason: CARDIAC/CHEST PAIN Senna/Docusate Sodium (Senokot-S, Ami-Colace) 2 tablet PO BID PRN PRN PRN Reason: Constipation Sodium Chloride () 10 - 40 ml IV UD PRN PRN Reason: SALINE FLUSH Last Admin: 10/22/19 20:23 Dose: 10 ml Documented by: STROKE Vital Signs/Narrative: Vital Signs Temp Pulse Resp BP Pulse Ox 10/23/19 10:00 97.9 F 92 25 H 158/96 H 100 10/23/19 09:30 85 35 H 100 10/23/19 08:56 97.9 F 86 35 H 112/89 H 95 10/23/19 07:35 86 18 96 10/23/19 06:45 88 Medical Necessity - Tobacco Use Smoking Status: Former smoker Tobacco Use: Non-smoker Assessment/Plan All Active Problems (Last Reviewed 07/15/18 @ 16:45 by April Hyatt) Severe sepsis (Acute) Acute on chronic respiratory failure with hypoxia (Acute) COPD exacerbation (Acute) Bilateral pneumonia (Acute) Suspected 2019 novel coronavirus infection (Acute) Pneumonia of both lower lobes (Acute) Respiratory failure (Acute) Bronchitis (Acute) URI (upper respiratory infection) (Acute) Sinusitis, acute maxillary (Acute) 1. Acute delirium, unclear etiology, patient is worse today, lethargic Multifactorial in etiology; hypoxia/opioid withdrawal/ICU delirium Less suspicious of alcohol withdrawal on account of history from his that since patient drinks [address] scan of brain negative for intracerebral bleed; cannot do a MRI because of vascular clips Ammonia is less than 10 Will continue to monitor 2. Acute hypoxic respiratory failure secondary to progressive bilateral pneumonia/aspiration pneumonia/bilateral transudative pleural effusion, improving COVID-19 negative on 10/15/19 status post extubation on 10/15/19, progressive improvement in oxygen requi rements with decreasing level parameters Status post bilateral thoracocentesis; 500mls from right on 10/18/19, 350mls from left effusion on 10/20/19; findings are suggestive of transudative cause per Li ghts criteria. Continue IV cefepime, breathing treatments, IV solumedrol( reduced dose) Per pulmo, may DC steroids tomorrow 3. Leucocytosis, persistent, likely seconday to steriods/stress-related Less likely from worsening infection. On IV cefepime. No fevers seen Repeat labs and CXR in am 4. Thrombocytopenia, unclear etiology, steady drop, likely secondary to acute illness JOSE antibody test requested (10/23/19) Platelets now 40, was 166 on admission Off Lovenox (last dose 10/20/19) No schistocytes on peripheral smear Hematology consulted 5. Hypernatremia, persistent, improved on D5W/no sodium, no chloride TPN Will continue to monitor whilst NPO 6. Elevated LFTs, unclear etiology, likely was medication related (Meropenem), improving Off meropenem, currently on cefepime Total bilirubin is steadily going up but AST/ALT is improving Previous LFTs and ultrasound of liver were normal Will continue to monitor 7. Severe sepsis secondary to bilateral pneumonia/ aspiration pneumonia, impro ving On IV cefepime 2g Q8h 8. Dysphagia, likely secondary to acute illness/acute confusional state Kept NPO, aspiration precautions, panel builder and speech therapy consulted Had a PICC line placed (10/21/19) On TPN 9. Hypertension, better controlled Continue on labetalol 10 mg every 4h with holding parameters. 10. CAD status post CABG/hyperlipidemia/carotid artery stenosis/renal artery pseudoaneurysm/history of brain aneurysm Not been able to take aspirin, Plavix. On scheduled Labetalol Switched to rectal aspirin 2 days ago; this is being held today(10/23/19) on account of severe thrombocytopenia 11. Anxiety/depression/chronic pain syndrome, morphine and antidepressants on hold 12. DVT PPx- SCDs 13. Code status - DNR-CCA Called to update patient's on patient's clinical status. I clarified his CODE STATUS and explained the various types of CODE STATUS-full code, DNR CCA, DNR CC. His stated that he would not wish to be kept on artificial support. She thinks the initial intubation was because patient presented with pneumonia but she does not think her would not survive a cardiac arrest or have a quality of life. She opted for DNR-CCA. Time spent discussing CODE STATUS 20 minutes Inpatient E&M: 28520 Subs Hosp L3 Procedures: 52052 Advncd Care Plan 30 Min
--- NOTE | 2019-10-23 10:36 | PCM.CONS.R ---
Consultation - Renal 10/23/19 PCP/ Referring MD: Requesting physician: Dr Rodriguez Primary care physician: GERSON LORENZANA Reason for Consultation:: Hypernatremia - History of Present Illness History of Present Illness: The patient is a 68 year old cachectic, frail M with past medical history for anxiety and Depression, Chronic COPD w/ Chronic Hypoxic Respiratory Failure (2L NC), Carotid artery stenosis s/p BL CEA, Hx renal artery pseudoaneursym s/p bypass, HTN, HLD, Hx Brain aneurysm s/p surgery, CAD s/p CABG, Diabetes mellitus type II presented to [place] [facility] on 410 and admitted for progressive shortness of breath, hypoxemia, pneumonia. He is treated with steroids and IV antibiotic therapy with infectious disease on consult. His respiratory panel, RSV and influenza studies were unremarkable. COVID was negative. He was intubated and admitted to intensive care unit on day of admission. He subsequently was transferred to progressive care unit on BiPAP yesterday. He is currently a DNR CCA. I was asked to see him in consult for persistent hypernatremia. He was initially treated with IV Lasix for what was thought to be congestive heart failure with a history of CAD with LVEF of 35%. His sodium level increased to 153-155 for several days despite being on D5 water at 125 cc/hour. Case was discussed with Dr. Rodriguez over the telephone past couple of days. He was switched over to TPN therapy yesterday. Sodium has improved down to 149 yesterday and 145 today. He has poor access to water with his altered mental status and severe debilitation. Underlying mental status is unknown to me. He is unable to provide any history. His restless on BiPAP. Chest x-ray on admission showed bilateral lobe pneumonia. He has leukocytosis. He had elevated liver enzymes with thrombocytopenia. Currently without any acute bleeding. procalcitonin was normal. Blood cultures have been negative up to date. - Allergies Allergies: Allergies VALENTINA Inhibitors Allergy (Verified 10/14/19 00:33) Unknown Penicillins Allergy (Verified 10/14/19 00:33) Unknown - Current Medications Current Medications: Current Medications Acetaminophen (Tylenol) 650 mg PO Q6H PRN PRN PRN Reason: Pain Score 1-10/Temp > 100.7 F Albuterol Sulfate (Ventolin Aerosols) 2.5 mg INHALATION Q2H PRN PRN PRN Reason: Dyspnea, wheezing Last Admin: 10/16/19 14:35 Dose: 2.5 mg Documented by: Albuterol/Ipratropium (Duoneb) 3 ml INHALATION Q4HWA.RT COUNTS INCLUDE 234 BEDS AT THE [facility] Last Admin: 10/23/19 07:35 Dose: 3 ml Documented by: Calamine/Phenol (Calmoseptine Ointment) 1 applic TOPICAL BID COUNTS INCLUDE 234 BEDS AT THE [facility]; Protocol Last Admin: 10/23/19 09:02 Dose: 1 applicatio Documented by: Dextrose (D50w Syringe) 0 gm IV X1 PRN; Protocol PRN Reason: Hypoglycemia Glucagon () 1 mg IM .X1 PRN PRN Reason: Hypoglycemia Guaifenesin (Robitussin) 10 ml PO Q4H PRN PRN PRN Reason: COUGH Sodium Chloride () 250 mls @ 15 mls/hr IV .[id number] PRN PRN Reason: Saline Flush Last Infusion: 10/19/19 19:00 Dose: Infused Documented by: Sodium Chloride () 250 mls @ 15 mls/hr IV .[id number] PRN PRN Reason: Additional IVPB Infusion Cefepime HCl 2 gm/ Sodium (Chloride) 100 mls @ 200 mls/hr IV Q12 COUNTS INCLUDE 234 BEDS AT THE [facility] Last Infusion: 10/23/19 09:48 Dose: Infused Documented by: Famotidine 40 mg/ Amino Acids 2,004 mls @ 42 mls/hr IV .Q24H COUNTS INCLUDE 234 BEDS AT THE [facility] Stop: 10/23/19 15:47 Last Infusion: 10/22/19 23:12 Dose: 42 mls/hr Documented by: Insulin Human Lispro (Humalog Sav (Bkc)) 0 unit SC Q6 COUNTS INCLUDE 234 BEDS AT THE [facility]; Protocol Last Admin: 10/23/19 05:22 Dose: 2 units Documented by: Labetalol HCl (Trandate) 10 mg IV Q4H COUNTS INCLUDE 234 BEDS AT THE [facility] Last Admin: 10/23/19 08:58 Dose: Not Given Documented by: Methylprednisolone (Solu-Medrol) 40 mg IV DAILY COUNTS INCLUDE 234 BEDS AT THE [facility] Last Admin: 10/23/19 09:02 Dose: 40 mg Documented by: Morphine Sulfate () 2 mg IV Q2H PRN PRN PRN Reason: Pain Score 6-10/10 Last Admin: 10/19/19 21:51 Dose: 2 mg Documented by: Nitroglycerin (Nitrostat) 0.4 mg SUBLINGUAL Q5M PRN PRN Reason: CARDIAC/CHEST PAIN Senna/Docusate Sodium (Senokot-S, Ami-Colace) 2 tablet PO BID PRN PRN PRN Reason: Constipation Sodium Chloride () 10 - 40 ml IV UD PRN PRN Reason: SALINE FLUSH Last Admin: 10/22/19 20:23 Dose: 10 ml Documented by: - Past Medical History Past Medical History (Chronic Problems): Chronic Problems CAD (coronary artery disease) (Chronic) PAD (peripheral artery disease) (Chronic) HTN (hypertension) (Chronic) HLD (hyperlipidemia) (Chronic) Diabetes mellitus, type II (Chronic) Heavy alcohol consumption (Chronic) Former tobacco use (Chronic) - Past Surgical History Surgical History: - - CABG x2, bilateral carotid endarterectomy, 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 - Social History Smoking Status: Former smoker Alcohol: Heavy - Patient notes at least 2 beers or 2 glasses of wine each night. Drugs: None - Family History Maternal History Items: Heart Disease, Hypertension Paternal History Items: Heart Disease, Hypertension Review of Systems Constitutional: Reports: Anorexia, Weakness. Denies: Chills, Fever Unable to obtain accurate/complete ROS d/t: Unable to provide history, on BiPAP, altered mental status. Patient Problems: Active and Suspected Problems (Last Reviewed 07/15/18 @ 16:45 by April Hyatt) Severe sepsis (Acute) Acute on chronic respiratory failure with hypoxia (Acute) COPD exacerbation (Acute) Bilateral pneumonia (Acute) Suspected 2018 novel coronavirus infection (Acute) Pneumonia of both lower lobes (Acute) Respiratory failure (Acute) - Physical Exam Vitals/I&O's: Vital Signs Temp Pulse Resp BP Pulse Ox 97.9 F 92 25 H 158/96 H 100 10/23/19 10:00 10/23/19 10:00 10/23/19 10:00 10/23/19 10:00 10/23/19 10:00 Oxygen Flow Rate (L/min) [3] 4 Oxygen Flow Rate (L/min) [2] 4 Oxygen Flow Rate (L/min) [1 ( 4 Initial Baseline)] Oxygen Flow Rate (L/min) 2 Oxygen Delivery Method [3] Nasal Cannula Oxygen Delivery Method [2] Nasal Cannula Oxygen Delivery Method [1 ( Nasal Cannula Initial Baseline)] Oxygen Delivery Method Bi-pap Weight: 59.1 kg Body Mass Index (BMI) 19.7 Intake and Output for Last 24 Hours 10/21/19 10/22/19 10/23/19 23:59 23:59 23:59 Intake Total 2952.08 / 2952.08 3106.25 / 3106.25 770 / 770 Output Total 0 / 0 101 / 101 Balance 2952.08 / 2952.08 3005.25 / 3005.25 770 / 770 General: Confused, Lethargic, Non-Cooperative, - - Severe debilitation, frail, cachectic Oral: Dry Mucosa Neck: - - Left carotid surgery scar Lungs: Rhonchi - Diffuse on BiPAP Abdomen: Bowel Sounds Present, Soft, Non Tender, Non-Distended Extremities: No edema, Diminished Peripheral Pulses, - - Warm to touch upper and lower extremities Skin: - - Mild old appearing Musculoskeletal: Cachexia, Muscle Wasting Neurological: - - lethargic, unable to assess Psych/Mental Status: Agitated, Restless, - - lethargic, altered mental status Microbiology Past 72 Hours 10/18/19 14:20 Fluid - Thoracentesis Fluid Gram Stain - Final 10/18/19 14:20 Fluid - Thoracentesis Fluid Body Fluid Culture - Final No growth aerobically. 10/18/19 14:20 Fluid - Thoracentesis Fluid Anaerobic Culture - Final No growth in 5 days. Laboratory Results 10/22/19 11:30: Urine Osmolality 788 10/22/19 11:30: Urine Creatinine 81.20 10/22/19 11:30: Ur Random Sodium 16 10/22/19 12:19: POC Glucose 173 H 10/22/19 13:00: Sodium 149 H, Potassium 4.0, Chloride 115 H, Carbon Dioxide 27.0, Anion Gap 7, BUN 48 H, Creatinine 0.92, Estim Creat Clear Calc 58.54, Est GFR (MDRD) Af Amer 105, Est GFR (MDRD) Non-Af 87, BUN/Creatinine Ratio 52.4 H, Glucose 203 H, Calcium 7.6 L 10/22/19 13:00: WBC 17.1 H, RBC 4.28 L, Hgb 13.6, Hct 42.1, MCV 98.4 H, MCH 31.8, MCHC 32.3, RDW Std Deviation 49.3 H, RDW Coeff of Xenia 13.5, Plt Count 47 L*, Immature Gran % (Auto) 0.900, Neut % (Auto) 94.0 H, Lymph % (Auto) 1.1 L, [place] % (Auto) 3.9, Eos % (Auto) 0.0, Baso % (Auto) 0.1, Absolute Neuts (auto) 16.1 H, Absolute Lymphs (auto) 0.19 L, Nucleated RBC % 2.7, Differential Comment COMMENT, Diff Path Review May celsa, Platelet Estimate MKD JUN, Plt Morphology Comment COMMENT, RBC Morphology NORM C+C 10/22/19 13:00: Phosphorus 2.7 10/22/19 19:10: Sodium 148 H, Potassium 4.0, Chloride 119 H, Carbon Dioxide 22.0, Anion Gap 7, BUN 47 H, Creatinine 0.88, Estim Creat Clear Calc 61.21, Est GFR (MDRD) Af Amer 110, Est GFR (MDRD) Non-Af 91, BUN/Creatinine Ratio 53.4 H, Glucose 242 H, Calcium 7.9 L 10/23/19 00:06: POC Glucose 255 H 10/23/19 05:19: POC Glucose 212 H 10/23/19 06:45: WBC 20.7 H, RBC 4.39 L, Hgb 14.1, Hct 42.7, MCV 97.3 H, MCH 32.1 H, MCHC 33.0, RDW Std Deviation 47.8 H, RDW Coeff of Xenia 13.2, Plt Count 40 L*, Immature Gran % (Auto) 0.800, Neut % (Auto) 93.9 H, Lymph % (Auto) 0.4 L, [place] % (Auto) 4.7, Eos % (Auto) 0.0, Baso % (Auto) 0.2, Absolute Neuts (auto) 19.4 H, Absolute Lymphs (auto) 0.08 L, Nucleated RBC % 4.3, Differential Comment SCANNED, Diff Path Review Rosy steen, Reactive Lymphocytes RARE, Platelet Estimate MKD 10/23/19 06:45: Sodium 145, Potassium 4.4, Chloride 115 H, Carbon Dioxide 22.0, Anion Gap 8, BUN 45 H, Creatinine 0.95, Estim Creat Clear Calc 60.48, Est GFR (MDRD) Af Amer 101, Est GFR (MDRD) Non-Af 83, BUN/Creatinine Ratio 47.5 H, Glucose 238 H, Calcium 7.7 L, Phosphorus 2.0 L, Total Bilirubin 3.70 H, AST 308 H, ALT 776 H, Alkaline Phosphatase 124 H, Total Protein 5.7 L, Albumin 2.8 L, Globulin 2.9, Albumin/Globulin Ratio 1.0, Triglycerides 171, Cholesterol 131, LDL Cholesterol 81, VLDL Cholesterol 34, HDL Cholesterol 16 L 10/23/19 06:45: Magnesium 2.7 H Clinical Impression(s) from Imaging Studies Chest X-Ray 10/14/19 01:05 IMPRESSION: Bilateral lower lobe pneumonia. Electronically Signed: Temi Richards at 1:29 EDT Tel , Service support , Chest X-Ray 10/14/19 02:02 IMPRESSION: Diffuse ill-defined opacities are seen more prominent in the perihilar regions and lung bases suggesting bilateral pneumonia or pulmonary edema. Electronically Signed: Temi Richards at 4:03 EDT Tel , Service support , KUB X-Ray 10/14/19 02:40 IMPRESSION: An NG tube is seen with tip within the gastric lumen is in good position. Electronically Signed: Temi Richards at 2:58 EDT Tel , Service support , Chest CTA 10/14/19 14:27 IMPRESSION: No demonstrated pulmonary embolism or arterial dissection. Bilateral pleural effusions associated with dependent consolidation within the lower lobes. Atherosclerosis. Electronically Signed: Kaila Nicole MD at 15:58 EDT Tel , Service support , Chest X-Ray 10/16/19 20:45 IMPRESSION: Continued severe interstitial and airspace infiltrates most pronounced in the lower right lung. Pneumonia is possible in the right lower lung. Small effusions are seen. Electronically Signed: Thaddeus Milton MD at 22:04 EDT , Service support , Liver Ultrasound 10/18/19 09:51 IMPRESSION: Normal right upper quadrant ultrasound examination. Electronically Signed: Flaco Gale, at 15:17 EDT , Service support , Chest X-Ray 10/18/19 10:50 IMPRESSION: Stable examination. Electronically Signed: Flaco Gale, at 11:58 EDT , Service support , Chest X-Ray 10/18/19 14:15 IMPRESSION: Status post left thoracentesis. There is no evidence of pneumothorax. Electronically Signed: Flaco Gale, at 15:16 EDT , Service support , Thoracentesis Ultrasound 10/18/19 14:47 IMPRESSION: Ultrasound-guided left thoracentesis. Electronically Signed: Flaco Gale at 14:59 EDT , Service support , Brain CT 10/19/19 08:23 IMPRESSION: Chronic involutional changes of the brain. Vascular clip is seen in the left [place] of [place] suggestion of prior clipping of an aneurysm. Electronically Signed: Flaco Gale, at 11:30 EDT , Service support , Thoracentesis Ultrasound 10/20/19 01:30 IMPRESSION: Successful ultrasound-guided left thoracentesis. Electronically Signed: Temi Richards, at 10:46 EDT Tel , Service support , Chest X-Ray 10/20/19 10:59 IMPRESSION: Markedly decreased right pleural effusion. Resolved left pleural effusion. There is no evidence of pneumothorax. Electronically Signed: Temi Richards, at 12:11 EDT Tel , Service support , Current Medications Acetaminophen (Tylenol) 650 mg PO Q6H PRN PRN PRN Reason: Pain Score 1-10/Temp > 100.7 F Albuterol Sulfate (Ventolin Aerosols) 2.5 mg INHALATION Q2H PRN PRN PRN Reason: Dyspnea, wheezing Last Admin: 10/16/19 14:35 Dose: 2.5 mg Documented by: Albuterol/Ipratropium (Duoneb) 3 ml INHALATION Q4HWA.RT [facility] Last Admin: 10/23/19 07:35 Dose: 3 ml Documented by: Calamine/Phenol (Calmoseptine Ointment) 1 applic TOPICAL BID [facility]; Protocol Last Admin: 10/23/19 09:02 Dose: 1 applicatio Documented by: Dextrose (D50w Syringe) 0 gm IV X1 PRN; Protocol PRN Reason: Hypoglycemia Glucagon () 1 mg IM .X1 PRN PRN Reason: Hypoglycemia Guaifenesin (Robitussin) 10 ml PO Q4H PRN PRN PRN Reason: COUGH Sodium Chloride () 250 mls @ 15 mls/hr IV .[id number] PRN PRN Reason: Saline Flush Last Infusion: 10/19/19 19:00 Dose: Infused Documented by: Sodium Chloride () 250 mls @ 15 mls/hr IV .[id number] PRN PRN Reason: Additional IVPB Infusion Cefepime HCl 2 gm/ Sodium (Chloride) 100 mls @ 200 mls/hr IV Q12 [facility] Last Infusion: 10/23/19 09:48 Dose: Infused Documented by: Famotidine 40 mg/ Amino Acids 2,004 mls @ 42 mls/hr IV .Q24H [facility] Stop: 10/23/19 15:47 Last Infusion: 10/22/19 23:12 Dose: 42 mls/hr Documented by: Insulin Human Lispro (Humalog Kwikpen (Bkc)) 0 unit SC Q6 [facility]; Protocol Last Admin: 10/23/19 05:22 Dose: 2 units Documented by: Labetalol HCl (Trandate) 10 mg IV Q4H [facility] Last Admin: 10/23/19 08:58 Dose: Not Given Documented by: Methylprednisolone (Solu-Medrol) 40 mg IV DAILY [facility] Last Admin: 10/23/19 09:02 Dose: 40 mg Documented by: Morphine Sulfate () 2 mg IV Q2H PRN PRN PRN Reason: Pain Score 6-10/10 Last Admin: 10/19/19 21:51 Dose: 2 mg Documented by: Nitroglycerin (Nitrostat) 0.4 mg SUBLINGUAL Q5M PRN PRN Reason: CARDIAC/CHEST PAIN Senna/Docusate Sodium (Senokot-S, Ami-Colace) 2 tablet PO BID PRN PRN PRN Reason: Constipation Sodium Chloride () 10 - 40 ml IV UD PRN PRN Reason: SALINE FLUSH Last Admin: 10/22/19 20:23 Dose: 10 ml Documented by: Assessment/Plan All Active Problems (Last Reviewed 07/15/18 @ 16:45 by April Hyatt) Thrombocytopenia (Acute) Severe sepsis (Acute) Acute on chronic respiratory failure with hypoxia (Acute) COPD exacerbation (Acute) Bilateral pneumonia (Acute) Suspected 2018 novel coronavirus infection (Acute) Pneumonia of both lower lobes (Acute) Respiratory failure (Acute) Bronchitis (Acute) URI (upper respiratory infection) (Acute) Sinusitis, acute maxillary (Acute) 1. Persistent hypernatremia likely due to poor access to water with severe free water deficit initially treated with IV Lasix for CHF. Doubt central diabetes insipidus since his urine osmolarity > 600 suggestive of intact pituitary axis, ACTH production. Urine sodium low at 16. Currently on PPN. Sodium improved from 155 down to 145 today. Continue with free water and PPN. Creatinine stable at 0.95. Currently incontinent of urine. No strict I's and O's available. 2. Sepsis syndrome with elevated liver enzymes, thrombocytopenia, leukocytosis. 3. Bilateral lobar pneumonia status post acute respiratory failure requiring intubation. Currently on BiPAP.Remains on IV antibiotics and steroids. ID following. Cultures all negative so far. BPs have been stable throughout hospitalization. 4. Severe debilitation 5. Severe protein calorie malnutrition with cachexia 6. Overall prognosis poor. DNR appropriate.
[2019-10-23] MEDS: 0.9% Saline Lock 10 ML Syringe IV ×2 (11:13→16:15)
[2019-10-23 11:21] LABS: Bedside Glucose 189 mg/dL (70-110)
--- NOTE | 2019-10-23 11:48 | PCM.NTREPORT ---
Nutrition Therapy Report - History Nutrition Services has been consulted to:: Manage parenteral nutrition Current diet / nutrition support order:: 1 L 4.25% AA, 10% dextrose at 42 ml/hr. - Anthropometric Measurements Height:: 5 ft 6 in Weight:: 59.1 kg Body Mass Index (BMI):: 21.0 - Relevant Labs Relevant Labs:: WBC 20.7 K/mm3 (4.4-11.0) H 10/23/19 06:45 RBC 4.39 M/mm3 (4.6-6.2) L 10/23/19 06:45 Hgb 12.7 g/dL (13.0-16.5) L 10/15/19 04:10 Hct 38.8 % (40-54) L 10/15/19 04:10 MCV 97.3 fL (80-94) H 10/23/19 06:45 MCH 32.1 pg (27.0-32.0) H 10/23/19 06:45 RDW Std Deviation 47.8 fl (35.1-43.9) H 10/23/19 06:45 Plt Count 40 K/mm3 (150-450) L* 10/23/19 06:45 MPV 14.2 fl (6.2-12.0) H 10/21/19 04:40 Neut % (Auto) 93.9 % (47-70) H 10/23/19 06:45 Lymph % (Auto) 0.4 % (19-41) L 10/23/19 06:45 Absolute Neuts (auto) 19.4 X10^3/uL (2.0-7.7) H 10/23/19 06:45 Absolute Lymphs (auto) 0.08 X10^3/uL (0.83-4.51) L 10/23/19 06:45 PT 19.8 SECONDS (11.7-14.9) H 10/19/19 08:15 APTT 24.0 Seconds (24.1-36.2) L 10/19/19 08:15 Sodium 148 mmol/L (136-145) H 10/22/19 19:10 Chloride 115 mmol/L (98-107) H 10/23/19 06:45 Carbon Dioxide 20.0 mmol/L (21.0-32.0) L 10/20/19 14:05 BUN 45 mg/dL (7-18) H 10/23/19 06:45 Creatinine 0.64 mg/dL (0.70-1.30) L 10/17/19 07:20 BUN/Creatinine Ratio 47.5 RATIO (10-20) H 10/23/19 06:45 Glucose 238 mg/dL (74-106) H 10/23/19 06:45 Lactic Acid 2.3 mmol/L (0.4-1.9) H* 10/14/19 03:28 Calcium 7.7 mg/dL (8.5-10.1) L 10/23/19 06:45 Phosphorus 2.0 mg/dL (2.5-4.9) L 10/23/19 06:45 Magnesium 2.7 mg/dL (1.6-2.6) H 10/23/19 06:45 Total Bilirubin 3.70 mg/dL (0.20-1.00) H 10/23/19 06:45 Direct Bilirubin 1.92 mg/dL (0.00-0.30) H 10/22/19 06:00 AST 308 U/L (15-37) H 10/23/19 06:45 ALT 776 U/L (16-61) H 10/23/19 06:45 Alkaline Phosphatase 124 U/L (45-117) H 10/23/19 06:45 Ammonia < 10.0 umol/L (11-32) L 10/19/19 08:15 Lactate Dehydrogenase 1674 U/L (87-241) H 10/18/19 05:18 C-React Prot Ext Range 10.00 mg/L (0.0-3.0) H 10/14/19 00:38 B-Natriuretic Peptide 630.0 pg/mL (0-100) H 10/15/19 04:10 Total Protein 5.7 g/dL (6.4-8.2) L 10/23/19 06:45 Albumin 2.8 g/dL (3.2-5.0) L 10/23/19 06:45 Albumin/Globulin Ratio 0.8 RATIO (0.9-2.4) L 10/17/19 07:20 HDL Cholesterol 16 mg/dL (40-) L 10/23/19 06:45 - Assessment Food / Nutrition-Related History:: Patient transfered out of ICU unit. Recieved consult to manage TPN--RDN spoke w/ Dr. Barth who provided verbal consent to continue TPN this day. Pt NPO day 6 recieving TPN 1L 4.25%AA, 10% dextrose at this time. Pt remains confused and disoriented. Per Dr. Barth dextrose discontinued d/t pt elevated Glucose and pt to recieve phosphorous d/t decreased level. Per Dr. Baltazar shay pt TPN have minimal sodium and chloride. Pt lipid panel in normal range (HDL increased); potassium in normal range; magnesium high (2.7 mg/dl). Pt remains on Bipap tx. Wt increase of 3.7 kg since previous review, CBW 59.1kg. - Nutrition Diagnosis Problem / Etiology / Signs & Symptoms (PES):: Inadequate oral intake related to altered mental status as evdienced by pt NPO day 6. Evidence of Malnutrition Exists:: No - Nutrition Intervention Nutrition Prescription:: Estimated pt nutrition needs: [id number] calories, 65-75 grams protein - Food / Nutrient Delivery Interventions Summary of nutrition intervention:: Given information available, pt does not currently meet criteria for acute malnutrition; although it is suspected that pt was w/ supobtimal PO intake AREA RELIEF PILOT. Would recommend TPN d/t to pts continued diminished mental status, NPO day 6, and enteral nutrition support unable to be trialed d/t pt mental status. 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 For TPN monitoring will need daily wts, CMP, CBC, liver panel, lipid panel, phosphorous. Daily Consult for TPN management is required per TPN policy. RDN spoke w/ pharmacist Brittany who will order TPN solution. Nutrition support ordered as / adjusted to:: 2 L 4.25% amino acid, 10% dextrose at 84 ml/hr. 250 ml 20% piggyback infusion on Thursday, Thursday, and Thursday. Nutrition education provided?: No - MNT Monitoring Further MNT monitoring and evaluation required?: Yes MNT Follow-up in:: 1-2 days - Will monitor TPN and provide daily recommendations/ adjust TPN as indicated. Please call RDN at [phone] for questions or concerns.
[2019-10-23 12:00] LABS: Base Excess -1 mmol/L (-2 to +2); Bicarbonate 22.5 mmol/L (22-26); PO2 62 mmHG (75-100); SO2 93 % (95-99); Total Carbon Dioxide 23 mmol/L; pCO2 30.1 mmHg (35-45); pH 7.48 (7.35-7.45)
[2019-10-23 12:10] LABS: Blood Gas Specimen Type ART; SITE R BRACHIAL
[2019-10-23 12:11] LABS: O2 Delivery Device Nasal Can; Time Given 925
--- NOTE | 2019-10-23 13:58 | CON.PCM_ITS ---
Subjective Date of Service:: 10/23/19 Chief Complaint: Thrombocytopenia History of Present Illness: Mr. Ned Awad is a 68-year-old gentleman with a past medical history significant for COPD, CAD s/p CABG, Diabetes mellitus type II, hypertension, anxiety and depression. He was in his usual state of health until 10/14/2019 when he presented to [facility] emergency department via squad with complaints of shortness of breath x2 days, quickly worsening, fevers at home per patient self-report and cough accompanied by headache, nausea vomiting. Found to be tachycardic and in respiratory failure. Chest x-ray revealed bilateral lobe pneumonia, suspected COVID-19 infection. Patient was started on Rocephin, azithromycin and subsequently admitted to the ICU for severe sepsis secondary to pneumonia and respiratory failure. Patient was transitioned out of ICU to PCU on 10/16/2019. Experiencing decrease mental status, acute delirium. Respiratory viral panel was negative. Strep and urine Legionella antigens were negative. Blood cultures negative to date. COVID-19 negative. CTA chest negative for PE. 10/18/2019?abrupt, severe increase in ALT AST and T bili. Transaminitis thought adverse effect to antimicrobial therapy and was changed. Although transaminitis has improved, bilirubin now remains greater than 3. According to chart patient has a history of EtOH use. Hematology consulted for thrombocytopenia, as evidenced by platelet count 40,000 today. On admission platelets were 166,000. Upon entering the room, patient is lying supine in bed. Witnessed apneic episode. Oriented to person only. Patient is unable to provide history or complete a review of systems. Past Medical History: Chronic Problems CAD (coronary artery disease) (Chronic) PAD (peripheral artery disease) (Chronic) HTN (hypertension) (Chronic) HLD (hyperlipidemia) (Chronic) Diabetes mellitus, type II (Chronic) Heavy alcohol consumption (Chronic) Former tobacco use (Chronic) Past Medical/Surgical History: Past Medical History - Most Recent Inpatient Visit Past Medical History Start: 10/14/19 04:30 Text: Status: Complete Freq: ONCE Protocol: Document 10/14/19 04:30 ARN (Rec: 10/14/19 05:46 ARN [id number]) BMI Required to complete PMH What is Patient's BMI 21.6 Past Medical History Unable History Recalled Yes: pt intubated and sedated Query Text:Pt Unable/Family Not Present family unavaliable to finish. Neurologic Medical History Hx Seizures No Cardiac Medical History VTE Present on Admission No Hx Hypertension Yes Hx Chest Pain/Angina Yes Hx Heart Attack Yes: had a couple a few years ago Hx Cardiac Surgery/Stents/Etc. Yes: CABG Hx Pacemaker/AICD No Respiratory Medical History Hx COPD Yes Hx Emphysema No Hx Smoking Yes Smoking Status Former smoker Tobacco Use Non-smoker Hx Smoking Cessation Date 10/14/19 Hx Tobacco Use in last 12 months No Hx Sleep Apnea No Do you snore loudly (louder than talking No or can be heard through closed doors)? Do you often feel tired/ fatigued/ No sleepy during daytime? Has anyone observed you stop breathing No during sleep? STOP Results Negative Genitourinary Medical History Indwelling Catheter in Place on Arrival/ No Admission Musculoskeletal History Hx Arthritis Yes: c-spine Hematologic Medical History Patient unable to answer at this time ( Yes ie. confused, unresponsive etc...) Other Medical History Wound/Pressure Injury Present on Arrival No /Admission Query Text:If yes, chart assessment in Shift/Clinical Findings Central Line/PICC/VAD Present on Arrival No /Admission Risk for Readmission Number of Risk Factors 2 At Risk for Readmission Patient is Not at Risk Patient is eligible for Call Back N Past Medical History (Last Reviewed 07/15/18 @ 16:45 by April Hyatt) Anemia (Acute) Back pain (Acute) Brain aneurysm (Acute) COPD (chronic obstructive pulmonary disease) (Acute) Chest pain (Acute) Difficulty balancing (Acute) Heart disease (Acute) Limb weakness (Acute) Renal artery bypass graft pseudoaneurysm (Acute) SOB (shortness of breath) (Acute) HTN (hypertension) (Chronic) Past Surgical History (Last Reviewed 07/15/18 @ 16:45 by April Hyatt) H/O carotid endarterectomy (Acute) H/O cataract extraction (Acute) H/O heart bypass surgery (Acute) Maternal Family History: Heart Disease, Hypertension Paternal Family History: Heart Disease, Hypertension - Social History Lives: Spouse/ Significant Other Smoking Status: Former smoker Tobacco Use: Non-smoker Alcohol: Heavy - Patient notes at least 2 beers or 2 glasses of wine each night. Drugs: None Allergies/Adverse Reactions: Allergy/AdvReac Type Severity Reaction Status Date / Time VALENTINA Inhibitors Allergy Unknown Verified 10/14/19 00:33 Penicillins Allergy Unknown Verified 10/14/19 00:33 Review of Systems Unable to obtain accurate/complete ROS d/t: Unable to obtain review of systems, patient disoriented. Vital Signs Temperature 97.8 F 10/23/19 13:00 Temperature Source Temporal 10/23/19 13:00 Pulse Rate 81 10/23/19 13:00 Pulse Strength Weak (1+) 10/23/19 08:55 Respiratory Rate 29 H 10/23/19 13:00 Respiratory Effort Non-Labored 10/23/19 13:49 Respiratory Depth Normal 10/23/19 13:49 Respiratory Pattern Normal 10/23/19 13:49 Blood Pressure 150/86 H 10/23/19 13:00 Blood Pressure Mean 107 10/23/19 13:00 Blood Pressure Source Monitor 10/23/19 13:00 Blood Pressure Position Semi-Fowlers 10/23/19 13:00 Blood Pressure Location Left Arm 10/23/19 13:00 Pulse Ox 100 10/23/19 13:20 Oxygen Delivery Method Nasal Cannula 10/23/19 13:49 Oxygen Flow Rate (L/min) 2 10/23/19 13:49 Fraction of Inspired Oxygen (FIO2) 35 10/23/19 11:11 - Physical Exam General: Alert, No apparent distress, Disoriented HEENT: Atraumatic, PERRLA, EOMI, Normocephalic, - - Sclera anti-icteric Oropharynx:: Negative for: Dry mucosa, Ulcerated lesions Neck:: Supple, Trachea midline. Negative for: JVD, bilateral Cardiac:: Regular rate, Regular rhythm, Normal S1, Normal S2. Negative for: Murmur Lungs: Rhonchi, Diminished, Periods of apnea, Excusion symmetrical. Negative for: Wheezes Abdomen:: Bowel sounds x 4, Soft, Non-distended, Hepatomegaly, Tender - Right upper quadrant. Negative for: Hepatosplenomegaly Extremities:: Cyanosis - Feet bilateral, Cool - Feet bilateral. Negative for: Edema Neurological: Neuro grossly intact Skin:: Petechiae - Bilateral upper extremities, right medial knee, Ecchymosis - Bilateral upper extremities in various stages of healing,. Negative for: Lesions, Rash Lymphatics:: Negative for: Cervical lymphadenopathy, Supraclavicular lymphadenopathy, Axillary lymphadenopathy Laboratory Data: Microbiology 04/14/20 14:20 Gram Stain - Final Fluid - Thoracentesis Fluid Body Fluid Culture - Final No growth aerobically. Anaerobic Culture - Final No growth in 5 days. Laboratory Tests 10/23/19 10/23/19 10/23/19 Range/Units 11:09 09:10 06:45 WBC (4.4-11.0) K/mm3 RBC (4.6-6.2) M/mm3 Hgb (13.0-16.5) g/dL Hct (40-54) % MCV (80-94) fL MCH (27.0-32.0) pg MCHC (32-36) g/dL RDW Std Deviation (35.1-43.9) fl RDW Coeff of Xenia (11.6-14.6) % Plt Count (150-450) K/mm3 Immature Gran % (Auto) (0.0-0.9) % Neut % (Auto) (47-70) % Lymph % (Auto) (19-41) % [place] % (Auto) (0-10) % Eos % (Auto) (0-5) % Baso % (Auto) (0-1) % Absolute Neuts (auto) (2.0-7.7) X10^3/uL Absolute Lymphs (auto) (0.83-4.51) X10^3/uL Nucleated RBC % (0-5) % Differential Comment Diff Path Review Reactive Lymphocytes Platelet Estimate (ADEQ) Plt Morphology Comment RBC Morphology (NORM C&C) NORMAL Specimen Type ART Sample Site R BRACHIAL pH 7.48 H (7.35-7.45) Bicarbonate Actual 22.5 (22-26) mmol/L POC Total CO2 23 mmol/L Base Excess -1 (-2 to +2) mmol/L O2 Saturation 93 L (95-99) % ABG pCO2 30.1 L (35-45) mmHg ABG pO2 62 L (75-100) mmHG Sha Test NA O2 Delivery Device Nasal Can Liter Flow 2.0 /min Blood Gas Notified Whom HOSP Blood Gas Notified Time 925 Sodium (136-145) mmol/L Potassium (3.5-5.1) mmol/L Chloride (98-107) mmol/L Carbon Dioxide (21.0-32.0) mmol/L Anion Gap (5-15) BUN (7-18) mg/dL Creatinine (0.70-1.30) mg/dL Estim Creat Clear Calc ml/min Est GFR (MDRD) Af Amer (>60) mL/min Est GFR (MDRD) Non-Af (>60) mL/min BUN/Creatinine Ratio (10-20) RATIO Glucose (74-106) mg/dL Calcium (8.5-10.1) mg/dL Phosphorus (2.5-4.9) mg/dL Magnesium 2.7 H (1.6-2.6) mg/dL Total Bilirubin (0.20-1.00) mg/dL AST (15-37) U/L ALT (16-61) U/L Alkaline Phosphatase (45-117) U/L Total Protein (6.4-8.2) g/dL Albumin (3.2-5.0) g/dL Globulin (2.2-4.2) g/dL Albumin/Globulin Ratio (0.9-2.4) RATIO Triglycerides ( - 199) mg/dL Cholesterol (200) mg/dL LDL Cholesterol (0-130) mg/dL VLDL Cholesterol (5-40) mg/dL HDL Cholesterol (40 - ) mg/dL POC Glucose 189 H (70-110) mg/dL 10/23/19 10/23/19 10/23/19 Range/Units 06:45 06:45 05:19 WBC 20.7 H (4.4-11.0) K/mm3 RBC 4.39 L (4.6-6.2) M/mm3 Hgb 14.1 (13.0-16.5) g/dL Hct 42.7 (40-54) % MCV 97.3 H (80-94) fL MCH 32.1 H (27.0-32.0) pg MCHC 33.0 (32-36) g/dL RDW Std Deviation 47.8 H (35.1-43.9) fl RDW Coeff of Xenia 13.2 (11.6-14.6) % Plt Count 40 L* (150-450) K/mm3 Immature Gran % (Auto) 0.800 (0.0-0.9) % Neut % (Auto) 93.9 H (47-70) % Lymph % (Auto) 0.4 L (19-41) % [place] % (Auto) 4.7 (0-10) % Eos % (Auto) 0.0 (0-5) % Baso % (Auto) 0.2 (0-1) % Absolute Neuts (auto) 19.4 H (2.0-7.7) X10^3/uL Absolute Lymphs (auto) 0.08 L (0.83-4.51) X10^3/uL Nucleated RBC % 4.3 (0-5) % Differential Comment SCANNED Diff Path Review May foll Reactive Lymphocytes RARE Platelet Estimate MKD DEC (ADEQ) Plt Morphology Comment RBC Morphology (NORM C&C) NORMAL Specimen Type Sample Site pH (7.35-7.45) Bicarbonate Actual (22-26) mmol/L POC Total CO2 mmol/L Base Excess (-2 to +2) mmol/L O2 Saturation (95-99) % ABG pCO2 (35-45) mmHg ABG pO2 (75-100) mmHG Sha Test O2 Delivery Device Liter Flow /min Blood Gas Notified Whom Blood Gas Notified Time Sodium 145 (136-145) mmol/L Potassium 4.4 (3.5-5.1) mmol/L Chloride 115 H (98-107) mmol/L Carbon Dioxide 22.0 (21.0-32.0) mmol/L Anion Gap 8 (5-15) BUN 45 H (7-18) mg/dL Creatinine 0.95 (0.70-1.30) mg/dL Estim Creat Clear Calc 60.48 ml/min Est GFR (MDRD) Af Amer 101 (>60) mL/min Est GFR (MDRD) Non-Af 83 (>60) mL/min BUN/Creatinine Ratio 47.5 H (10-20) RATIO Glucose 238 H (74-106) mg/dL Calcium 7.7 L (8.5-10.1) mg/dL Phosphorus 2.0 L (2.5-4.9) mg/dL Magnesium (1.6-2.6) mg/dL Total Bilirubin 3.70 H (0.20-1.00) mg/dL AST 308 H (15-37) U/L ALT 776 H (16-61) U/L Alkaline Phosphatase 124 H (45-117) U/L Total Protein 5.7 L (6.4-8.2) g/dL Albumin 2.8 L (3.2-5.0) g/dL Globulin 2.9 (2.2-4.2) g/dL Albumin/Globulin Ratio 1.0 (0.9-2.4) RATIO Triglycerides 171 ( - 199) mg/dL Cholesterol 131 (200) mg/dL LDL Cholesterol 81 (0-130) mg/dL VLDL Cholesterol 34 (5-40) mg/dL HDL Cholesterol 16 L (40 - ) mg/dL POC Glucose 212 H (70-110) mg/dL 10/23/19 10/22/19 10/22/19 Range/Units 00:06 19:10 13:00 WBC (4.4-11.0) K/mm3 RBC (4.6-6.2) M/mm3 Hgb (13.0-16.5) g/dL Hct (40-54) % MCV (80-94) fL MCH (27.0-32.0) pg MCHC (32-36) g/dL RDW Std Deviation (35.1-43.9) fl RDW Coeff of Xenia (11.6-14.6) % Plt Count 47 L* (150-450) K/mm3 Immature Gran % (Auto) (0.0-0.9) % Neut % (Auto) (47-70) % Lymph % (Auto) (19-41) % [place] % (Auto) (0-10) % Eos % (Auto) (0-5) % Baso % (Auto) (0-1) % Absolute Neuts (auto) (2.0-7.7) X10^3/uL Absolute Lymphs (auto) (0.83-4.51) X10^3/uL Nucleated RBC % (0-5) % Differential Comment COMMENT Diff Path Review May foll Reactive Lymphocytes Platelet Estimate MKD DEC (ADEQ) Plt Morphology Comment COMMENT RBC Morphology NORM C+C (NORM C&C) NORMAL Specimen Type Sample Site pH (7.35-7.45) Bicarbonate Actual (22-26) mmol/L POC Total CO2 mmol/L Base Excess (-2 to +2) mmol/L O2 Saturation (95-99) % ABG pCO2 (35-45) mmHg ABG pO2 (75-100) mmHG Sha Test O2 Delivery Device Liter Flow /min Blood Gas Notified Whom Blood Gas Notified Time Sodium 148 H (136-145) mmol/L Potassium 4.0 (3.5-5.1) mmol/L Chloride 119 H (98-107) mmol/L Carbon Dioxide 22.0 (21.0-32.0) mmol/L Anion Gap 7 (5-15) BUN 47 H (7-18) mg/dL Creatinine 0.88 (0.70-1.30) mg/dL Estim Creat Clear Calc 61.21 ml/min Est GFR (MDRD) Af Amer 110 (>60) mL/min Est GFR (MDRD) Non-Af 91 (>60) mL/min BUN/Creatinine Ratio 53.4 H (10-20) RATIO Glucose 242 H (74-106) mg/dL Calcium 7.9 L (8.5-10.1) mg/dL Phosphorus (2.5-4.9) mg/dL Magnesium (1.6-2.6) mg/dL Total Bilirubin (0.20-1.00) mg/dL AST (15-37) U/L ALT (16-61) U/L Alkaline Phosphatase (45-117) U/L Total Protein (6.4-8.2) g/dL Albumin (3.2-5.0) g/dL Globulin (2.2-4.2) g/dL Albumin/Globulin Ratio (0.9-2.4) RATIO Triglycerides ( - 199) mg/dL Cholesterol (200) mg/dL LDL Cholesterol (0-130) mg/dL VLDL Cholesterol (5-40) mg/dL HDL Cholesterol (40 - ) mg/dL POC Glucose 255 H (70-110) mg/dL Diagnostic Data: Diagnostic Data KUB X-Ray 10/14/19 02:40 IMPRESSION: An NG tube is seen with tip within the gastric lumen is in good position. Electronically Signed: Temi Richards at 2:58 EDT Tel , Service support , Chest CTA 10/14/19 14:27 IMPRESSION: No demonstrated pulmonary embolism or arterial dissection. Bilateral pleural effusions associated with dependent consolidation within the lower lobes. Atherosclerosis. Electronically Signed: Kaila Nicole MD at 15:58 EDT Tel , Service support , Liver Ultrasound 10/18/19 09:51 IMPRESSION: Normal right upper quadrant ultrasound examination. Electronically Signed: Flaco Shahla, at 15:17 EDT , Service support , Brain CT 10/19/19 08:23 IMPRESSION: Chronic involutional changes of the brain. Vascular clip is seen in the left [place] of [place] suggestion of prior clipping of an aneurysm. Electronically Signed: Flaco Shahla, at 11:30 EDT , Service support , Thoracentesis Ultrasound 10/20/19 01:30 IMPRESSION: Successful ultrasound-guided left thoracentesis. Electronically Signed: Temi Richards, at 10:46 EDT Tel , Service support , Chest X-Ray 10/20/19 10:59 IMPRESSION: Markedly decreased right pleural effusion. Resolved left pleural effusion. There is no evidence of pneumothorax. Electronically Signed: Temi Richards, at 12:11 EDT Tel , Service support , Assessment and Plan 1. Thrombocytopenia?as evidenced by platelet count 40,000. Platelets on admission 166,000. Possible etiologies include HIT, liver dysfunction, acute sepsis and adverse effect of antibiotics. Although based on 4 Ts score, there is a low probability of HIT. Will repeat coags, obtain LDH, HIT antibody. Lovenox on hold. Petechia present, otherwise no active bleeding. Transaminitis improving however total bili continues to climb, today 3.7. Anti icteric. Patient is tender to palpation of right upper quadrant. May consider CT abdomen given ultrasound liver obtained 10/18/2019 was reported as without any acute findings. Case discussed with Dr. Cornejo who was in agreement with aforementioned recommendations. Sammie Sierra, MSN, EMT/PARAMEDIC, AOCNP Medications: Prescriptions This Visit Medication Instructions Recorded Cholecalciferol (Vitamin D3) 2,000 unit PO DAILY 10/14/19 [Vitamin D3] Cyclobenzaprine HCl 10 mg PO QHS PRN 10/14/19 Fexofenadine HCl 180 mg PO DAILY 10/14/19 Iron Carbonyl [Feosol] 45 mg PO DAILYCM 10/14/19 Minocycline HCl 1 tab PO DAILY 10/14/19 Rosuvastatin Calcium 5 mg PO DAILY 10/14/19 Medications Added to Medication List This Visit Category Date Time Status Amino Acids 4.25%-D10W [Clinimix 4.25%-10% Solution Med 10/23/19 16:00 Active 2000 ML] 2,000 ml Multivitamins [Mvi] 10 ml Trace Metals [M.t.e. -5 Conc Mdv (BKC)] 1 ml Folic Acid [Folvite] 1 mg Famotidine 20MG/2ML SDV [Pepcid 20MG/2ML SDV] 40 mg IV 84 mls/hr Potassium Phosphate [Pot Phos] 15 mm Med 10/23/19 12:30 Active 0.9% Normal Saline 250 ml IV X1 Primary Care Provider: GERSON LORENZANA Referring Provider:
[2019-10-23 17:07] LABS: Bedside Glucose 235 mg/dL (70-110)
[2019-10-23 23:35] LABS: Bedside Glucose 233 mg/dL (70-110)
[2019-10-24] VITALS (29 sets, daily range): BP systolic 135–177; BP diastolic 57–100; PULSE 80–96; RESP 18–37; TEMP 36.6–36.8; O2SAT 91–100; BMI 21.4
[2019-10-24] MEDS: 0.9% Saline Lock 10 ML Syringe IV ×6 (04:06→21:41)
[2019-10-24] MEDS: Insulin Lispro 100 UNIT/ML INSULN.PEN SC ×3 (05:18→17:34)
[2019-10-24 05:25] LABS: Bedside Glucose 201 mg/dL (70-110)
--- NOTE | 2019-10-24 05:55 | RAD_ITS ---
STUDY: X-RAY CHEST REASON FOR EXAM: Male, 69 years old. HYPOXIA, F/U ON PLEURAL EFFUSIONS TECHNIQUE: Single AP portable view of the chest. COMPARISON: Comparison is made with prior study dated October 20, 2019. FINDINGS: EKG electrodes are seen. A right-sided PICC line catheter is seen with the tip at the junction of the superior vena cava and right atrium. Stable increased markings in the right hemithorax with areas of confluence in the lower lobes suggestive of chronic interstitial fibrosis. Stable increased markings at the left lung base. There is no demonstrated pleural abnormality. There is mild cardiac enlargement. Normal mediastinum and taco. Normal visualized pulmonary arteries. There is atherosclerotic calcification of the aortic arch with tortuosity. There is a levoscoliosis of the thoracic spine. Normal visualized ribs, clavicles, and shoulders. There is no demonstrated abnormality of the visualized soft tissue structures of the upper abdomen. RAD/Chest 1 View (Portable) IMPRESSION: Stable examination. Electronically Signed: Flaco Gale, at 8:50 EDT , Service support ,
[2019-10-24 06:42] LABS: Absolute Lymphocyte Count 0.06 X10^3/uL (0.83-4.51); Absolute Neutrophil Count 20.9 X10^3/uL (2.0-7.7); Basophil# 0.04 X10^3/uL; Basophil% 0.2 % (0-1); Hematocrit 41.6 % (40-54); Hemoglobin 13.5 g/dL (13.0-16.5); Lymphocyte # 0.06 X10^3/ul (4.0); Lymphocyte % 0.3 % (19-41); Mean Corp Hgb Conc 32.5 g/dL (32-36); Mean Corpuscular Hgb 31.6 pg (27.0-32.0); Mean Corpuscular Volume 97.4 fL (80-94); Monocyte# 1.17 X10^3/uL; Monocyte% 5.2 % (0-10); NRBC Flagged by Analyzer 3.3 % (0-5); Neutrophil # 20.89 X10^3/uL (2.7-7.7); Neutrophil % 93.4 % (47-70); POSITIVE COUNT YES; POSITIVE DIFFERENTIAL YES; RBC Distribution Width CV 13.4 % (11.6-14.6); RBC Distribution Width SD 47.8 fl (35.1-43.9); Red Blood Count 4.27 M/mm3 (4.6-6.2); White Blood Count 22.4 K/mm3 (4.4-11.0)
[2019-10-24 06:48] LABS: International Normalized Ratio 1.7; Prothrombin Time (Protime)PT. 19.3 SECONDS (11.7-14.9)
[2019-10-24 06:49] LABS: Partial Thromboplast Time 28.2 Seconds (24.1-36.2)
[2019-10-24 06:50] LABS: Differential Indicated SCAN CRITERIA MET; Platelet Count 42 K/mm3 (150-450)
[2019-10-24 07:06] LABS: Differential Comment SCANNED; Platelet Estimate MKD DEC (ADEQ); Reactive Lymphocyte RARE
[2019-10-24 07:16] LABS: AST(SGOT) 166 U/L (15-37); Alanine Aminotransfer ALT/SGPT 556 U/L (16-61); Albumin, Serum 2.7 g/dL (3.2-5.0); Alkaline Phosphatase 130 U/L (45-117); Anion Gap 7 (5-15); BUN 45 mg/dL (7-18); BUN/Creat Ratio 57.2 RATIO (10-20); Chloride 118 mmol/L (98-107); Creatinine, Serum 0.79 mg/dL (0.70-1.30); EST Glomerular Filtration Rate 103 mL/min (>60); Est Glom Filt Rate - Afr Amer 125 mL/min (>60); Globulin 2.8 g/dL (2.2-4.2); Glucose 235 mg/dL (74-106); LDH 811 U/L (87-241); Magnesium 2.5 mg/dL (1.6-2.6); Phosphorus 1.9 mg/dL (2.5-4.9); Protein, Total 5.5 g/dL (6.4-8.2); Sodium Level 148 mmol/L (136-145)
[2019-10-24] MEDS: Ipratropium/Albuterol Sulfate 3 ML AMPUL.NEB INHALATION ×4 (07:31→19:37)
[2019-10-24] MEDS: Menthol/Lanolin/Calamine/Znox 113 GM Tube 1 APPLIC TOPICAL ×2 (09:06→21:37)
--- NOTE | 2019-10-24 10:09 | CASEMGMT ---
FLORIDALMA spoke with Lisa in TCU and she thinks they would be able to take patient. He had a sitter Thursday at noon. She will also talk with Pharmacy as patient is on TPN. FLORIDALMA will get back to her later today. Antonette SANABRIA MSW
[2019-10-24 10:26] LABS: Pathologist Review Reviewed
[2019-10-24 10:27] LABS: Pathologist Review Reviewed
--- NOTE | 2019-10-24 10:27 | PCM.PN.HOSP ---
<Jose Rangel - Last Filed: 10/24/19 10:27> Patient Problems: Active and Suspected Problems (Last Reviewed 07/15/18 @ 16:45 by April Hyatt) Thrombocytopenia (Acute) Severe sepsis (Acute) Acute on chronic respiratory failure with hypoxia (Acute) COPD exacerbation (Acute) Bilateral pneumonia (Acute) Suspected 2019 novel coronavirus infection (Acute) Pneumonia of both lower lobes (Acute) Respiratory failure (Acute) Reason for Visit: altered mental status Subjective: Pt resting in bed, still having apneic episodes per nursing. The patient opens his eyes and mumbles incoherently when you attempt to talk to him. He was very weak and a 2 assist just sitting up with therapy. He couldnt follow any commands. I called his and she insists that he was awake, communicating, telling jokes, seemed more like his normal self yesterday when she visited and feels that he would be more normal if she were with him. Vitals/I&O's: Vital Signs Temp Pulse Resp BP Pulse Ox 98.0 F 89 20 H 140/67 H 95 10/24/19 08:00 10/24/19 10:00 10/24/19 10:00 10/24/19 10:00 10/24/19 10:00 Oxygen Flow Rate (L/min) [3] 4 Oxygen Flow Rate (L/min) [2] 4 Oxygen Flow Rate (L/min) [1 ( 4 Initial Baseline)] Oxygen Flow Rate (L/min) 2 Oxygen Delivery Method [3] Nasal Cannula Oxygen Delivery Method [2] Nasal Cannula Oxygen Delivery Method [1 ( Nasal Cannula Initial Baseline)] Oxygen Delivery Method Nasal Cannula Weight: 132 lb 7.965 oz Body Mass Index (BMI) 21.0 Intake and Output for Last 24 Hours 10/22/19 10/23/19 10/24/19 23:59 23:59 23:59 Intake Total 3106.25 / 3106.25 3045.05 / 3045.05 100 / 100 Output Total 101 / 101 Balance 3005.25 / 3005.25 3045.05 / 3045.05 100 / 100 General: Alert, Confused, Disoriented, - - cachectic HEENT: Atraumatic, PERRLA, EOMI, Normocephalic Neck: Supple, No JVD, Negative Carotid Bruits Lungs: Clear to auscultation, Normal air movement Cardiovascular: Regular rate, No murmurs Abdomen: Bowel Sounds Present, Soft, Non Tender Extremities: No edema, Capillary Refill Less than 3 Seconds Skin: No rashes, No breakdown Musculoskeletal: No Tenderness to Palpation of Joints or Extremities Neurological: Cranial nerves II-XII grossly intact Psych/Mental Status: Restless Microbiology Past 72 Hours 10/18/19 14:20 Fluid - Thoracentesis Fluid Gram Stain - Final 10/18/19 14:20 Fluid - Thoracentesis Fluid Body Fluid Culture - Final No growth aerobically. 10/18/19 14:20 Fluid - Thoracentesis Fluid Anaerobic Culture - Final No growth in 5 days. Laboratory Results 10/22/19 06:00: Diff Path Review Reviewed 10/22/19 13:00: Diff Path Review Reviewed 10/23/19 09:10: Specimen Type ART, Sample Site R BRACHIAL, pH 7.48 H, Bicarbonate Actual 22.5, POC Total CO2 23, Base Excess -1, O2 Saturation 93 L, ABG pCO2 30.1 L, ABG pO2 62 L, Sha Test NA, O2 Delivery Device Nasal Can, Liter Flow 2.0, Blood Gas Notified Whom DAPHNE BORREGO, Blood Gas Notified Time 925 10/23/19 11:09: POC Glucose 189 H 10/23/19 16:56: POC Glucose 235 H 10/23/19 23:29: POC Glucose 233 H 10/24/19 05:11: POC Glucose 201 H 10/24/19 06:28: WBC 22.4 H, RBC 4.27 L, Hgb 13.5, Hct 41.6, MCV 97.4 H, MCH 31.6, MCHC 32.5, RDW Std Deviation 47.8 H, RDW Coeff of Xenia 13.4, Plt Count 42 L*, Immature Gran % (Auto) 0.900, Neut % (Auto) 93.4 H, Lymph % (Auto) 0.3 L, [place] % (Auto) 5.2, Eos % (Auto) 0.0, Baso % (Auto) 0.2, Absolute Neuts (auto) 20.9 H, Absolute Lymphs (auto) 0.06 L, Nucleated RBC % 3.3, Differential Comment SCANNED, Diff Path Review May foll, Reactive Lymphocytes RARE, Platelet Estimate MKD 10/24/19 06:28: Sodium 148 H, Potassium 4.0, Chloride 118 H, Carbon Dioxide 23.0, Anion Gap 7, BUN 45 H, Creatinine 0.79, Estim Creat Clear Calc 57.60, Est GFR (MDRD) Af Amer 125, Est GFR (MDRD) Non-Af 103, BUN/Creatinine Ratio 57.2 H, Glucose 235 H, Calcium 8.0 L, Phosphorus 1.9 L, Magnesium 2.5, Total Bilirubin 3.20 H, AST 166 H, ALT 556 H, Alkaline Phosphatase 130 H, Lactate Dehydrogenase 811 H, Total Protein 5.5 L, Albumin 2.7 L, Globulin 2.8, Albumin/Globulin Ratio 1.0 10/24/19 06:28: Heparin-induced Plt Ab Pending 10/24/19 06:28: PT 19.3 H, INR 1.7, APTT 28.2 Current Medications Acetaminophen (Tylenol) 650 mg PO Q6H PRN PRN PRN Reason: Pain Score 1-10/Temp > 100.7 F Albuterol Sulfate (Ventolin Aerosols) 2.5 mg INHALATION Q2H PRN PRN PRN Reason: Dyspnea, wheezing Last Admin: 10/16/19 14:35 Dose: 2.5 mg Documented by: Albuterol/Ipratropium (Duoneb) 3 ml INHALATION Q4HWA.RT [facility] Last Admin: 10/24/19 07:31 Dose: 3 ml Documented by: Calamine/Phenol (Calmoseptine Ointment) 1 applic TOPICAL BID [facility]; Protocol Last Admin: 10/24/19 09:06 Dose: 1 applicatio Documented by: Dextrose (D50w Syringe) 0 gm IV X1 PRN; Protocol PRN Reason: Hypoglycemia Glucagon () 1 mg IM .X1 PRN PRN Reason: Hypoglycemia Guaifenesin (Robitussin) 10 ml PO Q4H PRN PRN PRN Reason: COUGH Sodium Chloride () 250 mls @ 15 mls/hr IV .[id number] PRN PRN Reason: Saline Flush Last Infusion: 10/19/19 19:00 Dose: Infused Documented by: Sodium Chloride () 250 mls @ 15 mls/hr IV .[id number] PRN PRN Reason: Additional IVPB Infusion Cefepime HCl 2 gm/ Sodium (Chloride) 100 mls @ 200 mls/hr IV Q12 [facility] Last Infusion: 10/24/19 09:49 Dose: Infused Documented by: Multivitamins 10 ml/ Chromium/Copper/Manganese/Seleni/Zn 1 ml/ Folic Acid 1 mg/Famotidine 40 mg/ Amino Acids 2,011.2 mls @ 84 mls/hr IV .[id number] [facility] Stop: 10/24/19 15:56 Last Infusion: 10/23/19 23:55 Dose: 84 mls/hr Documented by: Insulin Human Lispro (Humalog Kwikpen (Bkc)) 0 unit SC Q6 [facility]; Protocol Last Admin: 10/24/19 05:18 Dose: 2 units Documented by: Labetalol HCl (Trandate) 10 mg IV Q4H [facility] Last Admin: 10/24/19 09:06 Dose: 10 mg Documented by: Methylprednisolone (Solu-Medrol) 40 mg IV DAILY [facility] Last Admin: 10/24/19 09:06 Dose: 40 mg Documented by: Morphine Sulfate () 2 mg IV Q2H PRN PRN PRN Reason: Pain Score 6-10/10 Last Admin: 10/19/19 21:51 Dose: 2 mg Documented by: Nitroglycerin (Nitrostat) 0.4 mg SUBLINGUAL Q5M PRN PRN Reason: CARDIAC/CHEST PAIN Senna/Docusate Sodium (Senokot-S, Ami-Colace) 2 tablet PO BID PRN PRN PRN Reason: Constipation Sodium Chloride () 10 - 40 ml IV UD PRN PRN Reason: SALINE FLUSH Last Admin: 10/24/19 09:16 Dose: 10 ml Documented by: STROKE Vital Signs/Narrative: Vital Signs Temp Pulse Resp BP BP Pulse Ox 10/24/19 10:00 89 20 H 140/67 H 95 10/24/19 09:00 81 30 H 170/84 H 97 10/24/19 08:35 93 10/24/19 08:00 98.0 F 96 30 H 165/95 H 93 10/24/19 07:40 88 22 H 10/24/19 07:00 93 26 H 135/79 H 91 Medical Necessity - Tobacco Use Smoking Status: Former smoker Tobacco Use: Non-smoker Assessment/Plan All Active Problems (Last Reviewed 07/15/18 @ 16:45 by April Marques Thrombocytopenia (Acute) Severe sepsis (Acute) Acute on chronic respiratory failure with hypoxia (Acute) COPD exacerbation (Acute) Bilateral pneumonia (Acute) Suspected 2019 novel coronavirus infection (Acute) Pneumonia of both lower lobes (Acute) Respiratory failure (Acute) Bronchitis (Acute) URI (upper respiratory infection) (Acute) Sinusitis, acute maxillary (Acute) 1. Acute metabolic encephalopathy - unclear etiology. reportedly per he was alert and oriented yesterday. today he is a/ox0 and not following commands. Ammonia neg. CT neg. MRI unable to be obtained 2/2 vascular clips. 2. Acute hypoxic resp failure, severe sepsis, 2/2 streptococcal not strep pneumo, pneumonia - ID following. Covid neg. Extubated 10/15/19. Pt has apneic episodes. Bipap as needed. Continue Cefepime and Solumedrol. Pulmonary following. 3. Thromboyctopenia - JOSE pending, hem/onc following. Stable. Off lovenox 4. Hypernatremia - inc free water per TPN, Nephro following 5. Abn LFTs possibly due to robert, trend. Prior US liver normal. Abdomen is nontender. 6. Dysphagia - continue TPN. 7. HTN - continue prn lebatolol. DVT ppx: SCDs DC planning: pt likely will need placement in SNF or ltac as he is A/Ox0 and having minimal improvement in mentation, cannot follow commands. This patient was seen by Jose Rangel PA-C under the supervision of Dr. Klein. <Kevin Klein - Last Filed: 10/24/19 13:01> Vitals/I&O's: Vital Signs Temp Pulse Resp BP Pulse Ox 98.0 F 84 37 H 174/85 H 95 10/24/19 08:00 10/24/19 11:00 10/24/19 11:00 10/24/19 11:00 10/24/19 11:00 Oxygen Flow Rate (L/min) [3] 4 Oxygen Flow Rate (L/min) [2] 4 Oxygen Flow Rate (L/min) [1 ( 4 Initial Baseline)] Oxygen Flow Rate (L/min) 2 Oxygen Delivery Method [3] Nasal Cannula Oxygen Delivery Method [2] Nasal Cannula Oxygen Delivery Method [1 ( Nasal Cannula Initial Baseline)] Oxygen Delivery Method Room Air Weight: 60.1 kg Body Mass Index (BMI) 21.0 Intake and Output for Last 24 Hours 10/22/19 10/23/19 10/24/19 23:59 23:59 23:59 Intake Total 3106.25 / 3106.25 3045.05 / 3045.05 1092.6 / 1092.6 Output Total 101 / 101 Balance 3005.25 / 3005.25 3045.05 / 3045.05 1092.6 / 1092.6 Microbiology Past 72 Hours 10/18/19 14:20 Fluid - Thoracentesis Fluid Gram Stain - Final 10/18/19 14:20 Fluid - Thoracentesis Fluid Body Fluid Culture - Final No growth aerobically. 10/18/19 14:20 Fluid - Thoracentesis Fluid Anaerobic Culture - Final No growth in 5 days. Laboratory Results 10/22/19 06:00: Diff Path Review Reviewed 10/22/19 13:00: Diff Path Review Reviewed 10/23/19 06:45: Diff Path Review Reviewed 10/23/19 16:56: POC Glucose 235 H 10/23/19 23:29: POC Glucose 233 H 10/24/19 05:11: POC Glucose 201 H 10/24/19 06:28: WBC 22.4 H, RBC 4.27 L, Hgb 13.5, Hct 41.6, MCV 97.4 H, MCH 31.6, MCHC 32.5, RDW Std Deviation 47.8 H, RDW Coeff of Xenia 13.4, Plt Count 42 L*, Immature Gran % (Auto) 0.900, Neut % (Auto) 93.4 H, Lymph % (Auto) 0.3 L, [place] % (Auto) 5.2, Eos % (Auto) 0.0, Baso % (Auto) 0.2, Absolute Neuts (auto) 20.9 H, Absolute Lymphs (auto) 0.06 L, Nucleated RBC % 3.3, Differential Comment SCANNED, Diff Path Review May foll, Reactive Lymphocytes RARE, Platelet Estimate MKD 10/24/19 06:28: Sodium 148 H, Potassium 4.0, Chloride 118 H, Carbon Dioxide 23.0, Anion Gap 7, BUN 45 H, Creatinine 0.79, Estim Creat Clear Calc 57.60, Est GFR (MDRD) Af Amer 125, Est GFR (MDRD) Non-Af 103, BUN/Creatinine Ratio 57.2 H, Glucose 235 H, Calcium 8.0 L, Phosphorus 1.9 L, Magnesium 2.5, Total Bilirubin 3.20 H, AST 166 H, ALT 556 H, Alkaline Phosphatase 130 H, Lactate Dehydrogenase 811 H, Total Protein 5.5 L, Albumin 2.7 L, Globulin 2.8, Albumin/Globulin Ratio 1.0 10/24/19 06:28: Heparin-induced Plt Ab Pending 10/24/19 06:28: PT 19.3 H, INR 1.7, APTT 28.2 10/24/19 11:36: POC Glucose 218 H Current Medications Acetaminophen (Tylenol) 650 mg PO Q6H PRN PRN PRN Reason: Pain Score 1-10/Temp > 100.7 F Albuterol Sulfate (Ventolin Aerosols) 2.5 mg INHALATION Q2H PRN PRN PRN Reason: Dyspnea, wheezing Last Admin: 10/16/19 14:35 Dose: 2.5 mg Documented by: Albuterol/Ipratropium (Duoneb) 3 ml INHALATION Q4HWA.RT [facility] Last Admin: 10/24/19 11:18 Dose: 3 ml Documented by: Calamine/Phenol (Calmoseptine Ointment) 1 applic TOPICAL BID [facility]; Protocol Last Admin: 10/24/19 09:06 Dose: 1 applicatio Documented by: Dextrose (D50w Syringe) 0 gm IV X1 PRN; Protocol PRN Reason: Hypoglycemia Glucagon () 1 mg IM .X1 PRN PRN Reason: Hypoglycemia Guaifenesin (Robitussin) 10 ml PO Q4H PRN PRN PRN Reason: COUGH Sodium Chloride () 250 mls @ 15 mls/hr IV .[id number] PRN PRN Reason: Saline Flush Last Infusion: 10/19/19 19:00 Dose: Infused Documented by: Sodium Chloride () 250 mls @ 15 mls/hr IV .[id number] PRN PRN Reason: Additional IVPB Infusion Cefepime HCl 2 gm/ Sodium (Chloride) 100 mls @ 200 mls/hr IV Q12 [facility] Last Infusion: 10/24/19 09:49 Dose: Infused Documented by: Multivitamins 10 ml/ Chromium/Copper/Manganese/Seleni/Zn 1 ml/ Folic Acid 1 mg/Famotidine 40 mg/ Amino Acids 2,011.2 mls @ 84 mls/hr IV .[id number] [facility] Stop: 10/24/19 15:56 Last Infusion: 10/24/19 11:44 Dose: 84 mls/hr Documented by: Insulin Human Lispro (Humalog Kwikpen (Bkc)) 0 unit SC Q6 [facility]; Protocol Last Admin: 10/24/19 11:40 Dose: 2 units Documented by: Labetalol HCl (Trandate) 10 mg IV Q4H [facility] Last Admin: 10/24/19 11:40 Dose: 10 mg Documented by: Methylprednisolone (Solu-Medrol) 40 mg IV DAILY [facility] Last Admin: 10/24/19 09:06 Dose: 40 mg Documented by: Morphine Sulfate () 2 mg IV Q2H PRN PRN PRN Reason: Pain Score 6-10/10 Last Admin: 10/19/19 21:51 Dose: 2 mg Documented by: Nitroglycerin (Nitrostat) 0.4 mg SUBLINGUAL Q5M PRN PRN Reason: CARDIAC/CHEST PAIN Senna/Docusate Sodium (Senokot-S, Ami-Colace) 2 tablet PO BID PRN PRN PRN Reason: Constipation Sodium Chloride () 10 - 40 ml IV UD PRN PRN Reason: SALINE FLUSH Last Admin: 10/24/19 09:16 Dose: 10 ml Documented by: STROKE Vital Signs/Narrative: Vital Signs Pulse Resp BP Pulse Ox 10/24/19 11:00 84 37 H 174/85 H 95 10/24/19 10:00 89 20 H 140/67 H 95 10/24/19 09:00 81 30 H 170/84 H 97 Assessment/Plan This patient was seen in conjunction with Jose Rangel PA-C . I have independently interviewed and examined the patient and reviewed pertinent historical, laboratory, and other data. Please refer to Jose Rangel PA-C note for details of this patient's presentation, findings, and recommendations. I have reviewed Jose Rangel PA-C note and concur with documented findings. In brief, patient 79-year-old gentleman admitted with progressive shortness of breath. Patient has had a protracted stay. Physical Examination: GENERAL: Significantly lethargic HEENT: Atraumatic; EYES; Anicteric, Normal Conjunctiva NECK; supple, normal thyroid, RESPIRATORY: Diminished to auscultation CARDIOVASCULAR: Regular S1 S2, Assessment: 1. Acute metabolic encephalopathy 2. Acute hypoxic respiratory failure 3. Streptococcal pneumonia 4. Thrombocytopenia 5. Hypernatremia 6. Acute transaminitis 7. Essential hypertension 8. Dysphagia Recommendations: 1. I have discussed the results of my overview and impressions with the patient 2. Options for management were reviewed Inpatient E&M: 26167 Subs Hosp L2
[2019-10-24 10:28] LABS: Pathologist Review Reviewed
[2019-10-24 11:50] LABS: Bedside Glucose 218 mg/dL (70-110)
--- NOTE | 2019-10-24 14:15 | PCM.PN.REN ---
Patient Problems: Active and Suspected Problems (Last Reviewed 07/15/18 @ 16:45 by April Hyatt) Thrombocytopenia (Acute) Severe sepsis (Acute) Acute on chronic respiratory failure with hypoxia (Acute) COPD exacerbation (Acute) Bilateral pneumonia (Acute) Suspected 2019 novel coronavirus infection (Acute) Pneumonia of both lower lobes (Acute) Respiratory failure (Acute) Subjective: moaning, off BIPAP, not on oxygen at bedside. Pt poor historian - Physical Exam Vitals/I&O's: Vital Signs Temp Pulse Resp BP Pulse Ox 98.3 F 90 27 H 167/83 H 97 10/24/19 12:00 10/24/19 13:00 10/24/19 13:00 10/24/19 13:00 10/24/19 13:00 Oxygen Flow Rate (L/min) [3] 4 Oxygen Flow Rate (L/min) [2] 4 Oxygen Flow Rate (L/min) [1 ( 4 Initial Baseline)] Oxygen Flow Rate (L/min) 2 Oxygen Delivery Method [3] Nasal Cannula Oxygen Delivery Method [2] Nasal Cannula Oxygen Delivery Method [1 ( Nasal Cannula Initial Baseline)] Oxygen Delivery Method Room Air Weight: 60.1 kg Body Mass Index (BMI) 21.0 Intake and Output for Last 24 Hours 10/22/19 10/23/19 10/24/19 23:59 23:59 23:59 Intake Total 3106.25 / 3106.25 3045.05 / 3045.05 1092.6 / 1092.6 Output Total 101 / 101 Balance 3005.25 / 3005.25 3045.05 / 3045.05 1092.6 / 1092.6 General: Confused, Disoriented, - - moaning Oral: Dry Mucosa Lungs: Clear to auscultation Cardiovascular: Regular rate Abdomen: Bowel Sounds Present Extremities: No edema Microbiology Past 72 Hours 10/18/19 14:20 Fluid - Thoracentesis Fluid Gram Stain - Final 10/18/19 14:20 Fluid - Thoracentesis Fluid Body Fluid Culture - Final No growth aerobically. 10/18/19 14:20 Fluid - Thoracentesis Fluid Anaerobic Culture - Final No growth in 5 days. Laboratory Results 10/22/19 06:00: Diff Path Review Reviewed 10/22/19 13:00: Diff Path Review Reviewed 10/23/19 06:45: Diff Path Review Reviewed 10/23/19 16:56: POC Glucose 235 H 10/23/19 23:29: POC Glucose 233 H 10/24/19 05:11: POC Glucose 201 H 10/24/19 06:28: WBC 22.4 H, RBC 4.27 L, Hgb 13.5, Hct 41.6, MCV 97.4 H, MCH 31.6, MCHC 32.5, RDW Std Deviation 47.8 H, RDW Coeff of Xenia 13.4, Plt Count 42 L*, Immature Gran % (Auto) 0.900, Neut % (Auto) 93.4 H, Lymph % (Auto) 0.3 L, [place] % (Auto) 5.2, Eos % (Auto) 0.0, Baso % (Auto) 0.2, Absolute Neuts (auto) 20.9 H, Absolute Lymphs (auto) 0.06 L, Nucleated RBC % 3.3, Differential Comment SCANNED, Diff Path Review May , Reactive Lymphocytes RARE, Platelet Estimate MKD 10/24/19 06:28: Sodium 148 H, Potassium 4.0, Chloride 118 H, Carbon Dioxide 23.0, Anion Gap 7, BUN 45 H, Creatinine 0.79, Estim Creat Clear Calc 57.60, Est GFR (MDRD) Af Amer 125, Est GFR (MDRD) Non-Af 103, BUN/Creatinine Ratio 57.2 H, Glucose 235 H, Calcium 8.0 L, Phosphorus 1.9 L, Magnesium 2.5, Total Bilirubin 3.20 H, AST 166 H, ALT 556 H, Alkaline Phosphatase 130 H, Lactate Dehydrogenase 811 H, Total Protein 5.5 L, Albumin 2.7 L, Globulin 2.8, Albumin/Globulin Ratio 1.0 10/24/19 06:28: Heparin-induced Plt Ab Pending 10/24/19 06:28: PT 19.3 H, INR 1.7, APTT 28.2 10/24/19 11:36: POC Glucose 218 H Current Medications Acetaminophen (Tylenol) 650 mg PO Q6H PRN PRN PRN Reason: Pain Score 1-10/Temp > 100.7 F Albuterol Sulfate (Ventolin Aerosols) 2.5 mg INHALATION Q2H PRN PRN PRN Reason: Dyspnea, wheezing Last Admin: 10/16/19 14:35 Dose: 2.5 mg Documented by: Albuterol/Ipratropium (Duoneb) 3 ml INHALATION Q4HWA.RT [facility] Last Admin: 10/24/19 11:18 Dose: 3 ml Documented by: Calamine/Phenol (Calmoseptine Ointment) 1 applic TOPICAL BID [facility]; Protocol Last Admin: 10/24/19 09:06 Dose: 1 applicatio Documented by: Dextrose (D50w Syringe) 0 gm IV X1 PRN; Protocol PRN Reason: Hypoglycemia Glucagon () 1 mg IM .X1 PRN PRN Reason: Hypoglycemia Guaifenesin (Robitussin) 10 ml PO Q4H PRN PRN PRN Reason: COUGH Sodium Chloride () 250 mls @ 15 mls/hr IV .[id number] PRN PRN Reason: Saline Flush Last Infusion: 10/19/19 19:00 Dose: Infused Documented by: Sodium Chloride () 250 mls @ 15 mls/hr IV .[id number] PRN PRN Reason: Additional IVPB Infusion Cefepime HCl 2 gm/ Sodium (Chloride) 100 mls @ 200 mls/hr IV Q12 [facility] Last Infusion: 10/24/19 09:49 Dose: Infused Documented by: Multivitamins 10 ml/ Chromium/Copper/Manganese/Seleni/Zn 1 ml/ Folic Acid 1 mg/Famotidine 40 mg/ Amino Acids 2,011.2 mls @ 84 mls/hr IV .[id number] [facility] Stop: 10/24/19 15:56 Last Infusion: 10/24/19 11:44 Dose: 84 mls/hr Documented by: Insulin Human Lispro (Humalog Kwikpen (Bkc)) 0 unit SC Q6 [facility]; Protocol Last Admin: 10/24/19 11:40 Dose: 2 units Documented by: Labetalol HCl (Trandate) 10 mg IV Q4H [facility] Last Admin: 10/24/19 11:40 Dose: 10 mg Documented by: Methylprednisolone (Solu-Medrol) 40 mg IV DAILY [facility] Last Admin: 10/24/19 09:06 Dose: 40 mg Documented by: Morphine Sulfate () 2 mg IV Q2H PRN PRN PRN Reason: Pain Score 6-10/10 Last Admin: 10/19/19 21:51 Dose: 2 mg Documented by: Nitroglycerin (Nitrostat) 0.4 mg SUBLINGUAL Q5M PRN PRN Reason: CARDIAC/CHEST PAIN Senna/Docusate Sodium (Senokot-S, Ami-Colace) 2 tablet PO BID PRN PRN PRN Reason: Constipation Sodium Chloride () 10 - 40 ml IV UD PRN PRN Reason: SALINE FLUSH Last Admin: 10/24/19 09:16 Dose: 10 ml Documented by: Medical Necessity - Tobacco Use Smoking Status: Former smoker Tobacco Use: Non-smoker Assessment/Plan All Active Problems (Last Reviewed 07/15/18 @ 16:45 by April Hyatt) Thrombocytopenia (Acute) Severe sepsis (Acute) Acute on chronic respiratory failure with hypoxia (Acute) COPD exacerbation (Acute) Bilateral pneumonia (Acute) Suspected 2019 novel coronavirus infection (Acute) Pneumonia of both lower lobes (Acute) Respiratory failure (Acute) Bronchitis (Acute) URI (upper respiratory infection) (Acute) Sinusitis, acute maxillary (Acute) 1. Persistent hypernatremia likely due to poor access to water with severe free water deficit . Currently on PPN. Sodium improved from 155 down to 145 yesterday, 148 today. suggest increase TPN rate or add D5W at 50cc/hr. 2. Sepsis syndrome with elevated liver enzymes, thrombocytopenia, leukocytosis. BP stable 3. Bilateral lobar pneumonia status post acute respiratory failure on iv antibx
--- NOTE | 2019-10-24 15:15 | NT.THERAPY_ITS ---
Nutrition Therapy Report - History Nutrition Services has been consulted to:: Manage parenteral nutrition Current diet / nutrition support order:: NPO; TPN support with lipid infusion M, W, F - Anthropometric Measurements Height:: 5 ft 6 in Weight:: 60.1 kg Body Mass Index (BMI):: 21.4 - Relevant Labs Relevant Labs:: WBC 22.4 K/mm3 (4.4-11.0) H 10/24/19 06:28 RBC 4.27 M/mm3 (4.6-6.2) L 10/24/19 06:28 Hgb 12.7 g/dL (13.0-16.5) L 10/15/19 04:10 Hct 38.8 % (40-54) L 10/15/19 04:10 MCV 97.4 fL (80-94) H 10/24/19 06:28 MCH 32.1 pg (27.0-32.0) H 10/23/19 06:45 RDW Std Deviation 47.8 fl (35.1-43.9) H 10/24/19 06:28 Plt Count 42 K/mm3 (150-450) L* 10/24/19 06:28 MPV 14.2 fl (6.2-12.0) H 10/21/19 04:40 Neut % (Auto) 93.4 % (47-70) H 10/24/19 06:28 Lymph % (Auto) 0.3 % (19-41) L 10/24/19 06:28 Absolute Neuts (auto) 20.9 X10^3/uL (2.0-7.7) H 10/24/19 06:28 Absolute Lymphs (auto) 0.06 X10^3/uL (0.83-4.51) L 10/24/19 06:28 PT 19.3 SECONDS (11.7-14.9) H 10/24/19 06:28 APTT 24.0 Seconds (24.1-36.2) L 10/19/19 08:15 Sodium 148 mmol/L (136-145) H 10/24/19 06:28 Chloride 118 mmol/L (98-107) H 10/24/19 06:28 Carbon Dioxide 20.0 mmol/L (21.0-32.0) L 10/20/19 14:05 BUN 45 mg/dL (7-18) H 10/24/19 06:28 Creatinine 0.64 mg/dL (0.70-1.30) L 10/17/19 07:20 BUN/Creatinine Ratio 57.2 RATIO (10-20) H 10/24/19 06:28 Glucose 235 mg/dL (74-106) H 10/24/19 06:28 Lactic Acid 2.3 mmol/L (0.4-1.9) H* 10/14/19 03:28 Calcium 8.0 mg/dL (8.5-10.1) L 10/24/19 06:28 Phosphorus 1.9 mg/dL (2.5-4.9) L 10/24/19 06:28 Magnesium 2.7 mg/dL (1.6-2.6) H 10/23/19 06:45 Total Bilirubin 3.20 mg/dL (0.20-1.00) H 10/24/19 06:28 Direct Bilirubin 1.92 mg/dL (0.00-0.30) H 10/22/19 06:00 AST 166 U/L (15-37) H 10/24/19 06:28 ALT 556 U/L (16-61) H 10/24/19 06:28 Alkaline Phosphatase 130 U/L (45-117) H 10/24/19 06:28 Ammonia < 10.0 umol/L (11-32) L 10/19/19 08:15 Lactate Dehydrogenase 811 U/L (87-241) H 10/24/19 06:28 C-React Prot Ext Range 10.00 mg/L (0.0-3.0) H 10/14/19 00:38 B-Natriuretic Peptide 630.0 pg/mL (0-100) H 10/15/19 04:10 Total Protein 5.5 g/dL (6.4-8.2) L 10/24/19 06:28 Albumin 2.7 g/dL (3.2-5.0) L 10/24/19 06:28 Albumin/Globulin Ratio 0.8 RATIO (0.9-2.4) L 10/17/19 07:20 HDL Cholesterol 16 mg/dL (40-) L 10/23/19 06:45 - Assessment Food / Nutrition-Related History:: Pt remains NPO with TPN support; speech therapy unable to trial PO nutrition at this time. - Nutrition Diagnosis Problem / Etiology / Signs & Symptoms (PES):: 1.) Inadequate TPN infusion related to increased kcal/protein needs as evidence by TPN meeting~68% estimated kcal needs and ~100% estimated pro needs. 2.) Inadequate oral intake related to difficulty chewing, swallowing as evidenced by ongoing NPO & need for TPN support. Evidence of Malnutrition Exists:: No - Nutrition Intervention Nutrition Prescription:: Will increase TPN conc to 2L 20% dextrose/5% amino a cids @ 84 ml/hr with electrolytes, MVI, trace elements, folic acid and 250 ml 20% lipid infusion today (M, W, F) to provide 2010 kcal & 100 gm protein/day. For TPN monitoring will need CMP, CBC, liver panel, lipid panel, phosphorous, Will order daily wts, lipid profile. Daily Consult for TPN management is required per TPN policy. - Food / Nutrient Delivery Interventions Summary of nutrition intervention:: Changed TPN from 2L 10% dextrose/4.25% amino acid with 250 ml 20% lipid infusion on M, W, F @ 84 ml/hr to 2L 20% dextrose/5% amino acid with 250 ml 20% lipid infusion M, W, F @84 ml/hr; added electrolyes, MVI, trace metals/minerals and folic acid. Remains NPO; contraindicated for PO nutrition at this time; [employer]ER on consult. Nutrition support ordered as / adjusted to:: 2L 20% dextrose/5% amino acids @ 84 ml/hr with electrolytes, MVI, trace elements, folic acid and 250 ml 20% lipid infusion today (M, W, F) to provide 2010 kcal & 100 gm protein/day. Nutrition education provided?: No - MNT Monitoring Further MNT monitoring and evaluation required?: Yes MNT Follow-up in:: 1-2 days - Spoke to SHARLA Garcia; Sadia RN; Brittany, pharmacist
--- NOTE | 2019-10-24 16:11 | CPS ---
tried the bipap on the patient. patient will not wear, rips the mask off.
[2019-10-24] MEDS: Fat Emulsions 20% 250 ML IV (16:16)
[2019-10-24] MEDS: hydrALAZINE 20 MG/ML Vial 5 MG IV (16:23)
--- NOTE | 2019-10-24 16:23 | PCM.PN.ID ---
Patient Problems: Active and Suspected Problems (Last Reviewed 07/15/18 @ 16:45 by April Hyatt) Thrombocytopenia (Acute) Severe sepsis (Acute) Acute on chronic respiratory failure with hypoxia (Acute) COPD exacerbation (Acute) Bilateral pneumonia (Acute) Suspected 2019 novel coronavirus infection (Acute) Pneumonia of both lower lobes (Acute) Respiratory failure (Acute) Subjective: Poor mental status, no fever, at bedside. - Physical Exam Vitals/I&O's: Vital Signs Temp Pulse Resp BP Pulse Ox 98.3 F 80 20 H 175/90 H 93 10/24/19 12:00 10/24/19 15:53 10/24/19 15:53 10/24/19 15:00 10/24/19 15:00 Oxygen Flow Rate (L/min) [3] 4 Oxygen Flow Rate (L/min) [2] 4 Oxygen Flow Rate (L/min) [1 ( 4 Initial Baseline)] Oxygen Flow Rate (L/min) 2 Oxygen Delivery Method [3] Nasal Cannula Oxygen Delivery Method [2] Nasal Cannula Oxygen Delivery Method [1 ( Nasal Cannula Initial Baseline)] Oxygen Delivery Method Room Air Weight: 60.1 kg Body Mass Index (BMI) 21.4 Intake and Output for Last 24 Hours 10/22/19 10/23/19 10/24/19 23:59 23:59 23:59 Intake Total 3106.25 / 3106.25 3045.05 / 3045.05 1092.6 / 1092.6 Output Total 101 / 101 Balance 3005.25 / 3005.25 3045.05 / 3045.05 1092.6 / 1092.6 General: Lethargic - able to have a few intelligible words Lungs: Rhonchi Cardiovascular: Regular rate, Regular Rhythm Abdomen: Soft, Non Tender, Non-Distended Skin: No rashes Microbiology Past 72 Hours 10/18/19 14:20 Fluid - Thoracentesis Fluid Gram Stain - Final 10/18/19 14:20 Fluid - Thoracentesis Fluid Body Fluid Culture - Final No growth aerobically. 10/18/19 14:20 Fluid - Thoracentesis Fluid Anaerobic Culture - Final No growth in 5 days. Laboratory Results 10/22/19 06:00: Diff Path Review Reviewed 10/22/19 13:00: Diff Path Review Reviewed 10/23/19 06:45: Diff Path Review Reviewed 10/23/19 16:56: POC Glucose 235 H 10/23/19 23:29: POC Glucose 233 H 10/24/19 05:11: POC Glucose 201 H 10/24/19 06:28: WBC 22.4 H, RBC 4.27 L, Hgb 13.5, Hct 41.6, MCV 97.4 H, MCH 31.6, MCHC 32.5, RDW Std Deviation 47.8 H, RDW Coeff of Xenia 13.4, Plt Count 42 L*, Immature Gran % (Auto) 0.900, Neut % (Auto) 93.4 H, Lymph % (Auto) 0.3 L, [place] % (Auto) 5.2, Eos % (Auto) 0.0, Baso % (Auto) 0.2, Absolute Neuts (auto) 20.9 H, Absolute Lymphs (auto) 0.06 L, Nucleated RBC % 3.3, Differential Comment SCANNED, Diff Path Review May foll, Reactive Lymphocytes RARE, Platelet Estimate MKD 10/24/19 06:28: Sodium 148 H, Potassium 4.0, Chloride 118 H, Carbon Dioxide 23.0, Anion Gap 7, BUN 45 H, Creatinine 0.79, Estim Creat Clear Calc 57.60, Est GFR (MDRD) Af Amer 125, Est GFR (MDRD) Non-Af 103, BUN/Creatinine Ratio 57.2 H, Glucose 235 H, Calcium 8.0 L, Phosphorus 1.9 L, Magnesium 2.5, Total Bilirubin 3.20 H, AST 166 H, ALT 556 H, Alkaline Phosphatase 130 H, Lactate Dehydrogenase 811 H, Total Protein 5.5 L, Albumin 2.7 L, Globulin 2.8, Albumin/Globulin Ratio 1.0 10/24/19 06:28: Heparin-induced Plt Ab Pending 10/24/19 06:28: PT 19.3 H, INR 1.7, APTT 28.2 10/24/19 11:36: POC Glucose 218 H Current Medications Acetaminophen (Tylenol) 650 mg PO Q6H PRN PRN PRN Reason: Pain Score 1-10/Temp > 100.7 F Albuterol Sulfate (Ventolin Aerosols) 2.5 mg INHALATION Q2H PRN PRN PRN Reason: Dyspnea, wheezing Last Admin: 10/16/19 14:35 Dose: 2.5 mg Documented by: Albuterol/Ipratropium (Duoneb) 3 ml INHALATION Q4HWA.RT [facility]AV[facility]LE Last Admin: 10/24/19 15:35 Dose: 3 ml Documented by: Calamine/Phenol (Calmoseptine Ointment) 1 applic TOPICAL BID L[facility]LE; Protocol Last Admin: 10/24/19 09:06 Dose: 1 applicatio Documented by: Dextrose (D50w Syringe) 0 gm IV X1 PRN; Protocol PRN Reason: Hypoglycemia Glucagon () 1 mg IM .X1 PRN PRN Reason: Hypoglycemia Guaifenesin (Robitussin) 10 ml PO Q4H PRN PRN PRN Reason: COUGH Hydralazine HCl (Apresoline Iv) 5 mg IV Q4H PRN PRN PRN Reason: BLOOD PRESSURE Sodium Chloride () 250 mls @ 15 mls/hr IV .[id number] PRN PRN Reason: Saline Flush Last Infusion: 10/19/19 19:00 Dose: Infused Documented by: Sodium Chloride () 250 mls @ 15 mls/hr IV .[id number] PRN PRN Reason: Additional IVPB Infusion Cefepime HCl 2 gm/ Sodium (Chloride) 100 mls @ 200 mls/hr IV Q12 [facility] Last Infusion: 10/24/19 09:49 Dose: Infused Documented by: Multivitamins 10 ml/ Chromium/Copper/Manganese/Seleni/Zn 1 ml/ Folic Acid 1 mg/Famotidine 40 mg/ Amino Acids/Electrolytes 2,015.2 mls @ 84 mls/hr IV .Q24H [facility] Fat Emulsion Intravenous (Intralipid 20%) 250 mls @ 21 mls/hr IV .[id number] [facility] Stop: 10/25/19 03:54 Dextrose () 1,000 mls @ 50 mls/hr IV .Q20H [facility] Last Admin: 10/24/19 15:23 Dose: 50 mls/hr Documented by: Insulin Human Lispro (Humalog Kwikpen (Bkc)) 0 unit SC Q6 [facility]; Protocol Last Admin: 10/24/19 11:40 Dose: 2 units Documented by: Labetalol HCl (Trandate) 10 mg IV Q4H [facility] Last Admin: 10/24/19 15:22 Dose: 10 mg Documented by: Methylprednisolone (Solu-Medrol) 40 mg IV DAILY [facility] Last Admin: 10/24/19 09:06 Dose: 40 mg Documented by: Morphine Sulfate () 2 mg IV Q2H PRN PRN PRN Reason: Pain Score 6-10/10 Last Admin: 10/19/19 21:51 Dose: 2 mg Documented by: Nitroglycerin (Nitrostat) 0.4 mg SUBLINGUAL Q5M PRN PRN Reason: CARDIAC/CHEST PAIN Senna/Docusate Sodium (Senokot-S, Ami-Colace) 2 tablet PO BID PRN PRN PRN Reason: Constipation Sodium Chloride () 10 - 40 ml IV UD PRN PRN Reason: SALINE FLUSH Last Admin: 10/24/19 15:22 Dose: 20 ml Documented by: Medical Necessity - Tobacco Use Smoking Status: Former smoker Tobacco Use: Non-smoker Route of nutrition/ use of supplements: [] Nutritional Intake: [] IV Site: [] Moreira Catheter: [] - Assessment/Plan Antibiotics: [] Assessment/Plan: [] Active and Suspected Problems (Last Reviewed 07/15/18 @ 16:45 by April Hyatt) Severe sepsis (Acute) Acute on chronic respiratory failure with hypoxia (Acute) COPD exacerbation (Acute) Bilateral pneumonia (Acute) Suspected 2019 novel coronavirus infection (Acute) Pneumonia of both lower lobes (Acute) Respiratory failure (Acute) Subjective fever at home, reported chest pain, hypoxia, cough. COVID neg. Abx broadened from ceftriaxone to meropenem 10/15, now with high AST/ALT/LDH. No other clear cause of LFTs, now on cefepime. ALT/AST much improved, but bili only now starting to decrease. Mental status remains poor. WBC rising, platelets decreasing. Heme following. Will check PCT with AM labs. Consider CT abd/pelvis, MRI brain. Will follow
[2019-10-24 17:40] LABS: Bedside Glucose 272 mg/dL (70-110)
[2019-10-25] VITALS (14 sets, daily range): BP systolic 138–178; BP diastolic 69–89; PULSE 77–93; RESP 13–24; TEMP 36.3–36.7; O2SAT 95–100; BMI 21.2
[2019-10-25] MEDS: Insulin Lispro 100 UNIT/ML INSULN.PEN SC ×4 (00:06→17:14)
[2019-10-25] MEDS: 0.9% Saline Lock 10 ML Syringe IV ×6 (00:08→20:56)
[2019-10-25 00:25] LABS: Bedside Glucose 332 mg/dL (70-110)
[2019-10-25 05:46] LABS: Bedside Glucose 305 mg/dL (70-110)
[2019-10-25 06:34] LABS: Absolute Lymphocyte Count 0.12 X10^3/uL (0.83-4.51); Absolute Neutrophil Count 24.1 X10^3/uL (2.0-7.7); Basophil# 0.06 X10^3/uL; Basophil% 0.2 % (0-1); Hemoglobin 13.5 g/dL (13.0-16.5); Lymphocyte # 0.12 X10^3/ul (4.0); Lymphocyte % 0.5 % (19-41); Mean Corp Hgb Conc 32.9 g/dL (32-36); Mean Corpuscular Hgb 31.9 pg (27.0-32.0); Mean Corpuscular Volume 96.9 fL (80-94); Monocyte# 1.16 X10^3/uL; Monocyte% 4.5 % (0-10); NRBC Flagged by Analyzer 1.3 % (0-5); Neutrophil # 24.08 X10^3/uL (2.7-7.7); Neutrophil % 93.3 % (47-70); POSITIVE COUNT YES; POSITIVE DIFFERENTIAL YES; POSITIVE MORPHOLOGY YES; RBC Distribution Width CV 13.4 % (11.6-14.6); RBC Distribution Width SD 47.3 fl (35.1-43.9); Red Blood Count 4.23 M/mm3 (4.6-6.2); White Blood Count 25.8 K/mm3 (4.4-11.0)
[2019-10-25 06:57] LABS: ALB/GLOB Ratio 0.9 RATIO (0.9-2.4); AST(SGOT) 88 U/L (15-37); Alanine Aminotransfer ALT/SGPT 381 U/L (16-61); Albumin, Serum 2.4 g/dL (3.2-5.0); Alkaline Phosphatase 140 U/L (45-117); Anion Gap 7 (5-15); BUN 33 mg/dL (7-18); BUN/Creat Ratio 52.5 RATIO (10-20); Calcium,Total 7.7 mg/dL (8.5-10.1); Chloride 116 mmol/L (98-107); Creatinine, Serum 0.63 mg/dL (0.70-1.30); EST Glomerular Filtration Rate 134 mL/min (>60); Est Glom Filt Rate - Afr Amer 162 mL/min (>60); Estimated Creatinine Clearance 57.12 ml/min; Globulin 2.8 g/dL (2.2-4.2); Glucose 307 mg/dL (74-106); Magnesium 2.4 mg/dL (1.6-2.6); Potassium 3.6 mmol/L (3.5-5.1); Protein, Total 5.2 g/dL (6.4-8.2); Sodium Level 145 mmol/L (136-145)
[2019-10-25 07:15] LABS: Differential Indicated SCAN CRITERIA MET; Platelet Count 39 K/mm3 (150-450)
[2019-10-25] MEDS: Ipratropium/Albuterol Sulfate 3 ML AMPUL.NEB INHALATION ×3 (07:25→19:12)
[2019-10-25 07:46] LABS: Differential Comment SCANNED; Platelet Estimate MKD DEC (ADEQ); Platelet Morphology LARGE
[2019-10-25 07:52] LABS: Procalcitonin 0.11 ng/mL (0.00-0.09)
--- NOTE | 2019-10-25 08:21 | CT_ITS ---
STUDY: CT ABDOMEN AND PELVIS WITH CONTRAST REASON FOR EXAM: Male, 69 years old. SEPSIS, RESP DISTRESS RADIATION DOSAGE (If Supplied By Facility): CTDIvol = ( 17.95 ) mGy, DLP = ( 938.38 ) mGycm TECHNIQUE: Transaxial images were obtained from the dome of the diaphragm to the symphysis pubis without oral contrast. 100 CC ISOVUE 300 was administered. Sagittal and coronal images were reconstructed. Individualized dose optimization techniques were used for this CT. COMPARISON: None. FINDINGS: Moderate degree of bilateral pleural effusions with right basilar atelectasis and scarring at the right lung base. Coronary artery calcification. Limited assessment of the abdomen due to breathing motion artifact. There is evidence of free intraperitoneal air. Small amount of the perihepatic fluid. Diffuse fatty infiltration of the liver. The gallbladder is contracted. Small amount of perihepatic fluid as well as fluid in the right hepatorenal space. Normal spleen. Normal pancreas. Normal bilateral adrenal glands. 1.4 cm right renal cyst. Normal left kidney. Normal visualized stomach. Normal small intestine. Large amount of fecal material is seen in the rectal sigmoid junction. The appendix is visualized and appears normal. There is diffuse atherosclerotic calcification of the abdominal aorta. Infrarenal abdominal aortic aneurysm with a transverse dimension of 5.1 cm. There is evidence of mural thrombus. Dense calcification of the iliac arteries bilaterally. Normal inferior vena cava. Normal retroperitoneum. Normal urinary bladder. Normal abdominal wall. There are diffuse degenerative changes of the visualized lumbar spine. CT/Abdomen/Pelvis WITH Contrast IMPRESSION: Right pleural effusion with scarring at the right lung base. Small amount of right perihepatic fluid and small amount of free intraperitoneal air. Infrarenal fusiform abdominal aortic aneurysm with a transverse dimension of 5.1 cm. Large amount of fecal material is seen in the rectosigmoid colon. Electronically Signed: Flaco Gale, at 13:07 EDT , Service support ,
[2019-10-25] MEDS: Menthol/Lanolin/Calamine/Znox 113 GM Tube 1 APPLIC TOPICAL ×2 (08:23→21:09)
--- NOTE | 2019-10-25 09:08 | CT_ITS ---
STUDY: CT CHEST WITH CONTRAST REASON FOR EXAM: Male, 69 years old. SEPSIS,AMS, RESP FAILURE RADIATION DOSAGE (If Supplied By Facility): CTDIvol = ( 18.58 ) mGy, DLP = ( 491.91 ) mGycm TECHNIQUE: Transaxial imaging was performed following intravenous administration of 100 CC ISOVUE 300. Multiplanar coronal and sagittal images were reformatted. Individualized dose optimization techniques were used for this CT. COMPARISON: Comparison is made with prior scan of the thorax dated October 14, 2019. FINDINGS: A right-sided portacatheter is in place with the tip in the superior vena cava. The endotracheal tube has been removed. There now is evidence of a moderate size bilateral pleural effusions right greater than left with bibasilar atelectasis and/or infiltrates. This is superimposed on emphysematous changes worse in the upper lobes with a multiple bolus formation. There is also evidence of a mild degree of honeycombing at the right lung base. Normal heart and pericardium. Normal mediastinum. Normal hilar regions. Normal enhanced pulmonary arteries. There is atherosclerotic calcification of the aortic arch with tortuosity and elongation of the aortic arch and descending thoracic aorta. There are multi-level degenerative changes of the thoracic spine. Dextroscoliosis. There is no demonstrated abnormality of the visualized upper abdomen. CT/Chest WITH Contrast IMPRESSION: Bilateral pleural effusions right greater than left with bibasilar atelectasis and/or infiltrate. This is superimposed on chronic emphysematous changes with bullous formation and honeycombing at the right lung base. Electronically Signed: Flaco Gale, at 10:46 EDT , Service support ,
--- NOTE | 2019-10-25 09:08 | CT_ITS ---
STUDY: CT BRAIN WITHOUT CONTRAST REASON FOR EXAM: Male, 69 years old. SEPSIS,AMS, RESP FAILURE RADIATION DOSAGE (If Supplied By Facility): CTDIvol = ( 44.99 ) mGy, DLP = ( 880.47 ) mGycm TECHNIQUE: Transaxial CT imaging of the brain was performed without administration of intravenous contrast material. Individualized dose optimization techniques were used for this CT. COMPARISON: Comparison is made with prior examination dated October 19, 2019. FINDINGS: Normal soft tissue structures. Normal calvarium. Once again, there is evidence of a vascular clip seen along the left side of the [employer] [place] suggestive of prior clipping of an aneurysm. There is moderate cerebral atrophy with widening of the extra-axial spaces and ventricular dilatation. Stable focal encephalomalacia in the right temporal lobe in keeping with prior ischemic insult. Normal basal ganglia and thalami. Normal brainstem. Normal cerebellum. There is no intracranial hemorrhage. There are no findings of an acute ischemic infarction. Atherosclerotic calcification of the cavernous portions of the internal carotid arteries bilaterally. Normal visualized paranasal sinuses. CT/Brain/Head without Contrast IMPRESSION: Chronic involutional changes of the brain. Vascular clip is seen along the left side of the [employer] [place] in keeping with prior aneurysmal clipping. Electronically Signed: Flaco Gale, at 10:39 EDT , Service support ,
[2019-10-25] MEDS: levoFLOXacin IV 750 MG/150 ML BAG 100 MG IV (10:27)
[2019-10-25 10:37] LABS: Pathologist Review Reviewed
--- NOTE | 2019-10-25 10:45 | PN.ID_ITS ---
Patient Problems: Active and Suspected Problems (Last Reviewed 07/15/18 @ 16:45 by April Hyatt) Severe sepsis (Acute) Acute on chronic respiratory failure with hypoxia (Acute) COPD exacerbation (Acute) Bilateral pneumonia (Acute) Suspected 2019 novel coronavirus infection (Acute) Pneumonia of both lower lobes (Acute) Respiratory failure (Acute) Subjective: No fever, remains minimally responsive. - Physical Exam Vitals/I&O's: Vital Signs Temp Pulse Resp BP Pulse Ox 97.8 F 93 18 168/83 H 100 10/25/19 05:08 10/25/19 07:25 10/25/19 07:25 10/25/19 05:08 10/25/19 07:25 Oxygen Flow Rate (L/min) [3] 4 Oxygen Flow Rate (L/min) [2] 4 Oxygen Flow Rate (L/min) [1 ( 4 Initial Baseline)] Oxygen Flow Rate (L/min) 2 Oxygen Delivery Method [3] Nasal Cannula Oxygen Delivery Method [2] Nasal Cannula Oxygen Delivery Method [1 ( Nasal Cannula Initial Baseline)] Oxygen Delivery Method Nasal Cannula Weight: 59.6 kg Body Mass Index (BMI) 21.4 Intake and Output for Last 24 Hours 10/23/19 10/24/19 10/25/19 23:59 23:59 23:59 Intake Total 3045.05 / 3045.05 1567.2 / 1567.2 1239.17 / 1239.17 Balance 3045.05 / 3045.05 1567.2 / 1567.2 1239.17 / 1239.17 General: Non-Cooperative - unintelligible moaning Lungs: Rhonchi - moreso in R base Cardiovascular: Regular rate Abdomen: Tender - mild diffuse Skin: No rashes Microbiology Past 72 Hours 10/18/19 14:20 Fluid - Thoracentesis Fluid Gram Stain - Final 10/18/19 14:20 Fluid - Thoracentesis Fluid Body Fluid Culture - Final No growth aerobically. 10/18/19 14:20 Fluid - Thoracentesis Fluid Anaerobic Culture - Final No growth in 5 days. Laboratory Results 10/24/19 06:28: Diff Path Review Reviewed 10/24/19 11:36: POC Glucose 218 H 10/24/19 17:32: POC Glucose 272 H 10/25/19 00:05: POC Glucose 332 H 10/25/19 05:03: POC Glucose 305 H 10/25/19 06:00: WBC 25.8 H, RBC 4.23 L, Hgb 13.5, Hct 41.0, MCV 96.9 H, MCH 31.9, MCHC 32.9, RDW Std Deviation 47.3 H, RDW Coeff of Xenia 13.4, Plt Count 39 L*, Immature Gran % (Auto) 1.500 H, Neut % (Auto) 93.3 H, Lymph % (Auto) 0.5 L, [place] % (Auto) 4.5, Eos % (Auto) 0.0, Baso % (Auto) 0.2, Absolute Neuts (auto) 24.1 H, Absolute Lymphs (auto) 0.12 L, Nucleated RBC % 1.3, Differential Comment SCANNED, Diff Path Review November celsa, Platelet Estimate MKD DEC, Plt Morphology Comment LARGE 10/25/19 06:00: Sodium 145, Potassium 3.6, Chloride 116 H, Carbon Dioxide 22.0, Anion Gap 7, BUN 33 H, Creatinine 0.63 L, Estim Creat Clear Calc 57.12, Est GFR (MDRD) Af Amer 162, Est GFR (MDRD) Non-Af 134, BUN/Creatinine Ratio 52.5 H, Glucose 307 H, Calcium 7.7 L, Phosphorus 2.0 L, Magnesium 2.4, Total Bilirubin 3.10 H, AST 88 H, ALT 381 H, Alkaline Phosphatase 140 H, Total Protein 5.2 L, Albumin 2.4 L, Globulin 2.8, Albumin/Globulin Ratio 0.9 10/25/19 06:00: Procalcitonin 0.11 H Current Medications Acetaminophen (Tylenol) 650 mg PO Q6H PRN PRN PRN Reason: Pain Score 1-10/Temp > 100.7 F Albuterol Sulfate (Ventolin Aerosols) 2.5 mg INHALATION Q2H PRN PRN PRN Reason: Dyspnea, wheezing Last Admin: 10/16/19 14:35 Dose: 2.5 mg Documented by: Albuterol/Ipratropium (Duoneb) 3 ml INHALATION Q4HWA.RT LAVELLE Last Admin: 10/25/19 07:25 Dose: 3 ml Documented by: Calamine/Phenol (Calmoseptine Ointment) 1 applic TOPICAL BID [facility]; Protocol Last Admin: 10/25/19 08:23 Dose: 1 applicatio Documented by: Dextrose (D50w Syringe) 0 gm IV X1 PRN; Protocol PRN Reason: Hypoglycemia Glucagon () 1 mg IM .X1 PRN PRN Reason: Hypoglycemia Guaifenesin (Robitussin) 10 ml PO Q4H PRN PRN PRN Reason: COUGH Hydralazine HCl (Apresoline Iv) 5 mg IV Q4H PRN PRN PRN Reason: BLOOD PRESSURE Last Admin: 10/24/19 16:23 Dose: 5 mg Documented by: Sodium Chloride () 250 mls @ 15 mls/hr IV .[id number] PRN PRN Reason: Saline Flush Last Infusion: 10/19/19 19:00 Dose: Infused Documented by: Sodium Chloride () 250 mls @ 15 mls/hr IV .[id number] PRN PRN Reason: Additional IVPB Infusion Multivitamins 10 ml/ Chromium/Copper/Manganese/Seleni/Zn 1 ml/ Folic Acid 1 mg/Famotidine 40 mg/ Amino Acids/Electrolytes 2,015.2 mls @ 84 mls/hr IV .Q24H [facility] Last Admin: 10/24/19 16:16 Dose: 84 mls/hr Documented by: Dextrose () 1,000 mls @ 50 mls/hr IV .Q20H [facility] Last Infusion: 10/25/19 09:10 Dose: 0 mls/hr Documented by: Vancomycin IV Pharmacy to Dose (1 ea/ Sodium Chloride) 500 mls @ 250 mls/hr IV X1 PRN; Protocol PRN Reason: Rx to Dose Levofloxacin (Levaquin Iv) 750 mg in 150 mls @ 100 mls/hr IV Q24 [facility] Last Admin: 10/25/19 10:27 Dose: 100 mls/hr Documented by: Vancomycin HCl 1,500 mg/ (Sodium Chloride) 530 mls @ 250 mls/hr IV X1 ONE Stop: 10/25/19 12:07 Insulin Human Lispro (Humalog Kwikpen (Bkc)) 0 unit SC Q6 [facility]; Protocol Last Admin: 10/25/19 05:05 Dose: 6 units Documented by: Labetalol HCl (Trandate) 10 mg IV Q4H [facility] Last Admin: 10/25/19 08:22 Dose: 10 mg Documented by: Methylprednisolone (Solu-Medrol) 40 mg IV DAILY [facility] Last Admin: 10/25/19 08:22 Dose: 40 mg Documented by: Metronidazole (Flagyl) 500 mg PO TID [facility] Morphine Sulfate () 2 mg IV Q2H PRN PRN PRN Reason: Pain Score 6-10/10 Last Admin: 10/19/19 21:51 Dose: 2 mg Documented by: Nitroglycerin (Nitrostat) 0.4 mg SUBLINGUAL Q5M PRN PRN Reason: CARDIAC/CHEST PAIN Senna/Docusate Sodium (Senokot-S, Ami-Colace) 2 tablet PO BID PRN PRN PRN Reason: Constipation Sodium Chloride () 10 - 40 ml IV UD PRN PRN Reason: SALINE FLUSH Last Admin: 10/25/19 09:15 Dose: 20 ml Documented by: Medical Necessity - Tobacco Use Smoking Status: Former smoker Tobacco Use: Non-smoker Route of nutrition/ use of supplements: [] Nutritional Intake: [] IV Site: [] Moreira Catheter: [] - Assessment/Plan Antibiotics: [] Assessment/Plan: [] Active and Suspected Problems (Last Reviewed 07/15/18 @ 16:45 by April Hyatt) Severe sepsis (Acute) Acute on chronic respiratory failure with hypoxia (Acute) COPD exacerbation (Acute) Bilateral pneumonia (Acute) Suspected 2018 novel coronavirus infection (Acute) Pneumonia of both lower lobes (Acute) Respiratory failure (Acute) Subjective fever at home, reported chest pain, hypoxia, cough. COVID neg. Abx broadened from ceftriaxone to meropenem 10/15, developed high AST/ALT/LDH. No other clear cause of LFTs, now on cefepime. ALT/AST much improved, but bili only now starting to decrease. Mental status remains poor. WBC rising, platelets decreasing. Heme following. PCT 0.11. Now with some abd pain, worsened lung exam. Will order CT head/chest/abd/pelvis. Checking bcx/ua/ucx. Stop cefepime. Start empiric vanc/levaquin/flagyl while workup is pending; question if beta lactam therapy is contributing to thrombocytopenia. Will follow, d/w primary team
[2019-10-25 10:46] LABS: Pathologist Review Reviewed
--- NOTE | 2019-10-25 11:32 | NT.THERAPY_ITS ---
Nutrition Therapy Report - History Nutrition Services has been consulted to:: Manage parenteral nutrition Current diet / nutrition support order:: NPO; TPN support day#4 (since 10/21) - Anthropometric Measurements Height:: 5 ft 6 in Weight:: 59.6 kg Body Mass Index (BMI):: 21.2 - Relevant Labs Relevant Labs:: WBC 25.8 K/mm3 (4.4-11.0) H 10/25/19 06:00 RBC 4.23 M/mm3 (4.6-6.2) L 10/25/19 06:00 Hgb 12.7 g/dL (13.0-16.5) L 10/15/19 04:10 Hct 38.8 % (40-54) L 10/15/19 04:10 MCV 96.9 fL (80-94) H 10/25/19 06:00 MCH 32.1 pg (27.0-32.0) H 10/23/19 06:45 RDW Std Deviation 47.3 fl (35.1-43.9) H 10/25/19 06:00 Plt Count 39 K/mm3 (150-450) L* 10/25/19 06:00 MPV 14.2 fl (6.2-12.0) H 10/21/19 04:40 Immature Gran % (Auto) 1.500 % (0.0-0.9) H 10/25/19 06:00 Neut % (Auto) 93.3 % (47-70) H 10/25/19 06:00 Lymph % (Auto) 0.5 % (19-41) L 10/25/19 06:00 Absolute Neuts (auto) 24.1 X10^3/uL (2.0-7.7) H 10/25/19 06:00 Absolute Lymphs (auto) 0.12 X10^3/uL (0.83-4.51) L 10/25/19 06:00 PT 19.3 SECONDS (11.7-14.9) H 10/24/19 06:28 APTT 24.0 Seconds (24.1-36.2) L 10/19/19 08:15 Sodium 148 mmol/L (136-145) H 10/24/19 06:28 Chloride 116 mmol/L (98-107) H 10/25/19 06:00 Carbon Dioxide 20.0 mmol/L (21.0-32.0) L 10/20/19 14:05 BUN 33 mg/dL (7-18) H 10/25/19 06:00 Creatinine 0.63 mg/dL (0.70-1.30) L 10/25/19 06:00 BUN/Creatinine Ratio 52.5 RATIO (10-20) H 10/25/19 06:00 Glucose 307 mg/dL (74-106) H 10/25/19 06:00 Lactic Acid 2.3 mmol/L (0.4-1.9) H* 10/14/19 03:28 Calcium 7.7 mg/dL (8.5-10.1) L 10/25/19 06:00 Phosphorus 2.0 mg/dL (2.5-4.9) L 10/25/19 06:00 Magnesium 2.7 mg/dL (1.6-2.6) H 10/23/19 06:45 Total Bilirubin 3.10 mg/dL (0.20-1.00) H 10/25/19 06:00 Direct Bilirubin 1.92 mg/dL (0.00-0.30) H 10/22/19 06:00 AST 88 U/L (15-37) H 10/25/19 06:00 ALT 381 U/L (16-61) H 10/25/19 06:00 Alkaline Phosphatase 140 U/L (45-117) H 10/25/19 06:00 Ammonia < 10.0 umol/L (11-32) L 10/19/19 08:15 Lactate Dehydrogenase 811 U/L (87-241) H 10/24/19 06:28 C-React Prot Ext Range 10.00 mg/L (0.0-3.0) H 10/14/19 00:38 B-Natriuretic Peptide 630.0 pg/mL (0-100) H 10/15/19 04:10 Total Protein 5.2 g/dL (6.4-8.2) L 10/25/19 06:00 Albumin 2.4 g/dL (3.2-5.0) L 10/25/19 06:00 Albumin/Globulin Ratio 0.8 RATIO (0.9-2.4) L 10/17/19 07:20 HDL Cholesterol 16 mg/dL (40-) L 10/23/19 06:45 Procalcitonin 0.11 ng/mL (0.00-0.09) H 10/25/19 06:00 - Assessment Food / Nutrition-Related History:: Pt continues NPO & TPN support at this time. If medically able, suggest TF support for group home nutrition especially if pt remains NPO & contraindicated for PO nutrition. - Nutrition Diagnosis Problem / Etiology / Signs & Symptoms (PES):: Difficulty swallowing related to minimally responsive state as evidenced by need for nutrition support; continued NPO status. Evidence of Malnutrition Exists:: No - Nutrition Intervention Nutrition Prescription:: 1.) Will reorder TPN-- 2L 20% dextrose/5% amino acids @ 84 ml/hr with electrolytes, MVI, trace elements, folic acid and 250 ml 20% lipid infusion (M, W, F); no lipids today to provide ~average 2010 kcal with lipids QOD & 100 gm protein/day. For TPN monitoring will need CMP, CBC, liver panel, lipid panel, phosphorous, Will order daily wts, lipid profile. Daily Consult for TPN management is required per TPN policy. 2.) Consider PEG placement/TF for group home nutrition support especially if PO nutrition remains contraindicated & enteral nutrition support deemed safe. 3.) If deemed safe for PO nutrition, recommend Cardiac; Carbohydrate-controlled diet; vegetarian per pt request, consistency per GEOLOGIST PETROLEUM when appropriate for PO intake. PO nutrition remains contraindicated at this time. - Food / Nutrient Delivery Interventions Summary of nutrition intervention:: Will reorder TPN-- 2L 20% dextrose/5% amino acids @ 84 ml/hr with electrolytes, MVI, trace elements, folic acid and 250 ml 20% lipid infusion (M, W, F); no lipids today to provide ~average 2010 kcal with lipids QOD & 100 gm protein/day. For TPN monitoring will need CMP, CBC, liver panel, lipid panel, phosphorous, Will order daily wts, lipid profile. Daily Consult for TPN management is required per TPN policy. Nutrition support ordered as / adjusted to:: TPN-- 2L 20% dextrose/5% amino acids @ 84 ml/hr with electrolytes, MVI, trace elements, folic acid and 250 ml 20% lipid infusion (M, W, F); no lipids today to provide ~average 2010 kcal with lipids QOD & 100 gm protein/day. Nutrition education provided?: No - MNT Monitoring Further MNT monitoring and evaluation required?: Yes MNT Follow-up in:: 1-2 days - Spoke to SHARLA Garcia re: possibility of TF support & PEG placement for group home nutrition support.
[2019-10-25 11:37] LABS: Mucous, Urine 0 SEEN /hpf (<or=2+); Red Blood Cells-Urine 0 SEEN /hpf (0-5); Squamous Epithelial Cells - UA 0 SEEN /hpf (0-5); White Blood Cells 0 SEEN /hpf (0-5)
[2019-10-25 11:39] LABS: Color, Urine Yellow (Yellow); Glucose, Dipstick 250 mg/dl (Normal); Ketone-Dipstick Negative (Negative); Leukocyte Esterase-Dipstick Negative /ul (Negative); Nitrite-Dipstick Negative (Negative); Occult Blood-Urine 50 /ul (Negative); Protein-Dipstick 30 mg/dl (Negative); Urine Bilirubin Dipstick Negative (Negative); Urine Clarity Clear (Clear); Urine Urobilinogen Normal (Normal)
[2019-10-25 11:45] LABS: Bacteria RARE /hpf (None Seen); Hyaline Cast 0-5 SEEN /lpf (0-5)
--- NOTE | 2019-10-25 12:04 | CASEMGMT ---
FLORIDALMA spoke with Lisa yesterday and she will start the pre-cert. Plan: TCU pending insurance approval Antonette ROBERT
--- NOTE | 2019-10-25 12:07 | PN_ITS ---
<Jose Rangel - Last Filed: 10/25/19 12:07> Patient Problems: Active and Suspected Problems (Last Reviewed 07/15/18 @ 16:45 by April Hyatt) Severe sepsis (Acute) Acute on chronic respiratory failure with hypoxia (Acute) COPD exacerbation (Acute) Bilateral pneumonia (Acute) Suspected 2018 novel coronavirus infection (Acute) Pneumonia of both lower lobes (Acute) Respiratory failure (Acute) Reason for Visit: Pt non communicative. Opens eyes, makes eye contact, mumbles and groans incoherently. He winces to palpation of the abdomen. No obvious respiratory distress. Vitals/I&O's: Vital Signs Temp Pulse Resp BP Pulse Ox 98.0 F 80 16 155/89 H 97 10/25/19 09:50 10/25/19 11:01 10/25/19 10:55 10/25/19 09:50 10/25/19 09:50 Oxygen Flow Rate (L/min) [3] 4 Oxygen Flow Rate (L/min) [2] 4 Oxygen Flow Rate (L/min) [1 ( 4 Initial Baseline)] Oxygen Flow Rate (L/min) 2 Oxygen Delivery Method [3] Nasal Cannula Oxygen Delivery Method [2] Nasal Cannula Oxygen Delivery Method [1 ( Nasal Cannula Initial Baseline)] Oxygen Delivery Method Nasal Cannula Weight: 131 lb 6.328 oz Body Mass Index (BMI) 21.2 Intake and Output for Last 24 Hours 10/23/19 10/24/19 10/25/19 23:59 23:59 23:59 Intake Total 3045.05 / 3045.05 1567.2 / 1567.2 1389.17 / 1389.17 Balance 3045.05 / 3045.05 1567.2 / 1567.2 1389.17 / 1389.17 General: Alert, Confused, - - groaning incoherently, cachectic. makes eye contact. HEENT: Atraumatic, PERRLA, EOMI, Normocephalic Neck: Supple, No JVD, Negative Carotid Bruits Lungs: Clear to auscultation, Diminished Cardiovascular: Regular rate, No murmurs Abdomen: Bowel Sounds Present, Soft, Tender - diffuse tenderness, wincing to mild palpation, though soft and without guarding Extremities: No edema, Capillary Refill Less than 3 Seconds Skin: No rashes, No breakdown Musculoskeletal: No Tenderness to Palpation of Joints or Extremities Neurological: Cranial nerves II-XII grossly intact Psych/Mental Status: Restless Microbiology Past 72 Hours 10/18/19 14:20 Fluid - Thoracentesis Fluid Gram Stain - Final 10/18/19 14:20 Fluid - Thoracentesis Fluid Body Fluid Culture - Final No growth aerobically. 10/18/19 14:20 Fluid - Thoracentesis Fluid Anaerobic Culture - Final No growth in 5 days. Laboratory Results 10/24/19 06:28: Diff Path Review Reviewed 10/24/19 17:32: POC Glucose 272 H 10/25/19 00:05: POC Glucose 332 H 10/25/19 05:03: POC Glucose 305 H 10/25/19 06:00: WBC 25.8 H, RBC 4.23 L, Hgb 13.5, Hct 41.0, MCV 96.9 H, MCH 31.9, MCHC 32.9, RDW Std Deviation 47.3 H, RDW Coeff of Xenia 13.4, Plt Count 39 L*, Immature Gran % (Auto) 1.500 H, Neut % (Auto) 93.3 H, Lymph % (Auto) 0.5 L, [place] % (Auto) 4.5, Eos % (Auto) 0.0, Baso % (Auto) 0.2, Absolute Neuts (auto) 24.1 H, Absolute Lymphs (auto) 0.12 L, Nucleated RBC % 1.3, Differential Comment SCANNED, Diff Path Review Reviewed, Platelet Estimate MKD DEC, Plt Morphology Comment LARGE 10/25/19 06:00: Sodium 145, Potassium 3.6, Chloride 116 H, Carbon Dioxide 22.0, Anion Gap 7, BUN 33 H, Creatinine 0.63 L, Estim Creat Clear Calc 57.12, Est GFR (MDRD) Af Amer 162, Est GFR (MDRD) Non-Af 134, BUN/Creatinine Ratio 52.5 H, Glucose 307 H, Calcium 7.7 L, Phosphorus 2.0 L, Magnesium 2.4, Total Bilirubin 3.10 H, AST 88 H, ALT 381 H, Alkaline Phosphatase 140 H, Total Protein 5.2 L, Albumin 2.4 L, Globulin 2.8, Albumin/Globulin Ratio 0.9 10/25/19 06:00: Procalcitonin 0.11 H 10/25/19 10:35: Urine Color Yellow, Urine Clarity Clear, Urine pH 6.0, Ur Specific [place] 1.010, Urine Protein 30 H, Urine Glucose (UA) 250 H, Urine Ketones Negative, Urine Occult Blood 50 H, Urine Nitrite Negative, Urine Bilirubin Negative, Urine Urobilinogen Normal, Ur Leukocyte Esterase Negative, Urine RBC 0 SEEN, Urine WBC 0 SEEN, Ur Squamous Epith Cells 0 SEEN, Urine Bacteria RARE, Hyaline Casts 0-5 SEEN, Urine Mucus 0 SEEN Current Medications Acetaminophen (Tylenol) 650 mg PO Q6H PRN PRN PRN Reason: Pain Score 1-10/Temp > 100.7 F Albuterol Sulfate (Ventolin Aerosols) 2.5 mg INHALATION Q2H PRN PRN PRN Reason: Dyspnea, wheezing Last Admin: 10/16/19 14:35 Dose: 2.5 mg Documented by: Albuterol/Ipratropium (Duoneb) 3 ml INHALATION Q4HWA.RT [facility] Last Admin: 10/25/19 10:55 Dose: 3 ml Documented by: Calamine/Phenol (Calmoseptine Ointment) 1 applic TOPICAL BID [facility]; Protocol Last Admin: 10/25/19 08:23 Dose: 1 applicatio Documented by: Dextrose (D50w Syringe) 0 gm IV X1 PRN; Protocol PRN Reason: Hypoglycemia Glucagon () 1 mg IM .X1 PRN PRN Reason: Hypoglycemia Guaifenesin (Robitussin) 10 ml PO Q4H PRN PRN PRN Reason: COUGH Hydralazine HCl (Apresoline Iv) 5 mg IV Q4H PRN PRN PRN Reason: BLOOD PRESSURE Last Admin: 10/24/19 16:23 Dose: 5 mg Documented by: Sodium Chloride () 250 mls @ 15 mls/hr IV .[id number] PRN PRN Reason: Saline Flush Last Infusion: 10/19/19 19:00 Dose: Infused Documented by: Sodium Chloride () 250 mls @ 15 mls/hr IV .[id number] PRN PRN Reason: Additional IVPB Infusion Multivitamins 10 ml/ Chromium/Copper/Manganese/Seleni/Zn 1 ml/ Folic Acid 1 mg/Famotidine 40 mg/ Amino Acids/Electrolytes 2,015.2 mls @ 84 mls/hr IV .Q24H [facility] [place] Stop: 10/25/19 15:59 Last Admin: 10/24/19 16:16 Dose: 84 mls/hr Documented by: Dextrose () 1,000 mls @ 50 mls/hr IV .Q20H [facility] [place] Last Infusion: 10/25/19 09:10 Dose: 0 mls/hr Documented by: Vancomycin IV Pharmacy to Dose (1 ea/ Sodium Chloride) 500 mls @ 250 mls/hr IV X1 PRN; Protocol PRN Reason: Rx to Dose Levofloxacin (Levaquin Iv) 750 mg in 150 mls @ 100 mls/hr IV Q24 [facility] [place] Last Infusion: 10/25/19 12:03 Dose: Infused Documented by: Multivitamins 10 ml/ Chromium/Copper/Manganese/Seleni/Zn 1 ml/ Folic Acid 1 mg/Famotidine 40 mg/ Amino Acids/Electrolytes 2,015.2 mls @ 84 mls/hr IV .Q24H [facility] [place] Stop: 10/26/19 15:48 Insulin Human Lispro (Humalog Kwikpen (Bkc)) 0 unit SC Q6 [facility] [place]; Protocol Last Admin: 10/25/19 05:05 Dose: 6 units Documented by: Labetalol HCl (Trandate) 10 mg IV Q4H [facility] [place] Last Admin: 10/25/19 08:22 Dose: 10 mg Documented by: Methylprednisolone (Solu-Medrol) 40 mg IV DAILY [facility] [place] Last Admin: 10/25/19 08:22 Dose: 40 mg Documented by: Metronidazole (Flagyl) 500 mg PO TID [facility] [place] Morphine Sulfate () 2 mg IV Q2H PRN PRN PRN Reason: Pain Score 6-10/10 Last Admin: 10/19/19 21:51 Dose: 2 mg Documented by: Nitroglycerin (Nitrostat) 0.4 mg SUBLINGUAL Q5M PRN PRN Reason: CARDIAC/CHEST PAIN Senna/Docusate Sodium (Senokot-S, Ami-Colace) 2 tablet PO BID PRN PRN PRN Reason: Constipation Sodium Chloride () 10 - 40 ml IV UD PRN PRN Reason: SALINE FLUSH Last Admin: 10/25/19 09:15 Dose: 20 ml Documented by: STROKE Vital Signs/Narrative: Vital Signs Temp Pulse Resp BP Pulse Ox 10/25/19 11:01 80 10/25/19 10:55 82 16 10/25/19 09:50 98.0 F 80 24 H 155/89 H 97 Medical Necessity - Tobacco Use Smoking Status: Former smoker Tobacco Use: Non-smoker Assessment/Plan All Active Problems (Last Reviewed 07/15/18 @ 16:45 by April Hyatt) Thrombocytopenia (Acute) Severe sepsis (Acute) Acute on chronic respiratory failure with hypoxia (Acute) COPD exacerbation (Acute) Bilateral pneumonia (Acute) Suspected 2018 novel coronavirus infection (Acute) Pneumonia of both lower lobes (Acute) Respiratory failure (Acute) Bronchitis (Acute) URI (upper respiratory infection) (Acute) Sinusitis, acute maxillary (Acute) 1. Acute metabolic encephalopathy - unclear etiology. reportedly per he was alert and oriented yesterday. today he is a/ox0 and not following commands. Ammonia neg. CT neg. MRI unable to be obtained 2/2 vascular clips. -Repeat CT brain negative for acute process. 2. Acute hypoxic resp failure, severe sepsis, 2/2 streptococcal not strep pneumo, pneumonia - ID following. Covid neg. Extubated 10/15/19. Pt has apneic episodes. Bipap as needed. discussed with ID and pulmonary. -No fever. -WBC increased. Mentation not improved. -Repeat UA negative. -continue to wean steroids via IV. -CT chest with notable pleural effusions, emphysematous changes, honeycombing -CT abd pending. -inc abd pain / tenderness today -consider repeat thoracentesis -EF 35% by recent echo, [id number]. multiple areas of wall abnormalities. -Abx changed per ID to vanco, flagyl, levaquin -may be component of failure accounting for effusions however pt without deteriorating respiratory status. 3. Thromboyctopenia - JOSE pending, hem/onc following. Stable. Off lovenox. ? abx side effect. 4. Hypernatremia - improved. Nephro following. 5. Abn LFTs possibly due to robert, trend. Prior US liver normal. Abdomen is now tender. CT pending. 6. Dysphagia 2/2 #1- continue TPN. 7. HTN - continue prn lebatolol, hydralazine DVT ppx: SCDs DC planning: pt likely will need placement in SNF or ltac as he is A/Ox0 and having minimal improvement in mentation, cannot follow commands. This patient was seen by Jose Rangel PA-C under the supervision of Dr. Klein. <Kevin Klein - Last Filed: 10/25/19 15:16> Vitals/I&O's: Vital Signs Temp Pulse Resp BP Pulse Ox 97.6 F L 81 23 H 154/78 H 98 10/25/19 12:24 10/25/19 12:24 10/25/19 12:24 10/25/19 12:24 10/25/19 12:24 Oxygen Flow Rate (L/min) [3] 4 Oxygen Flow Rate (L/min) [2] 4 Oxygen Flow Rate (L/min) [1 ( 4 Initial Baseline)] Oxygen Flow Rate (L/min) 2 Oxygen Delivery Method [3] Nasal Cannula Oxygen Delivery Method [2] Nasal Cannula Oxygen Delivery Method [1 ( Nasal Cannula Initial Baseline)] Oxygen Delivery Method Nasal Cannula Weight: 59.6 kg Body Mass Index (BMI) 21.2 Intake and Output for Last 24 Hours 10/23/19 10/24/19 10/25/19 23:59 23:59 23:59 Intake Total 3045.05 / 3045.05 1567.2 / 1567.2 1389.17 / 1389.17 Output Total 200 / 200 Balance 3045.05 / 3045.05 1567.2 / 1567.2 1189.17 / 1189.17 Microbiology Past 72 Hours 10/18/19 14:20 Fluid - Thoracentesis Fluid Gram Stain - Final 10/18/19 14:20 Fluid - Thoracentesis Fluid Body Fluid Culture - Final No growth aerobically. 10/18/19 14:20 Fluid - Thoracentesis Fluid Anaerobic Culture - Final No growth in 5 days. Laboratory Results 10/24/19 06:28: Diff Path Review Reviewed 10/24/19 17:32: POC Glucose 272 H 10/25/19 00:05: POC Glucose 332 H 10/25/19 05:03: POC Glucose 305 H 10/25/19 06:00: WBC 25.8 H, RBC 4.23 L, Hgb 13.5, Hct 41.0, MCV 96.9 H, MCH 31.9, MCHC 32.9, RDW Std Deviation 47.3 H, RDW Coeff of [place] 13.4, Plt Count 39 L*, Immature Gran % (Auto) 1.500 H, Neut % (Auto) 93.3 H, Lymph % (Auto) 0.5 L, [place] % (Auto) 4.5, Eos % (Auto) 0.0, Baso % (Auto) 0.2, Absolute Neuts (auto) 24.1 H, Absolute Lymphs (auto) 0.12 L, Nucleated RBC % 1.3, Differential Comment SCANNED, Diff Path Review Reviewed, Platelet Estimate MKD DEC, Plt Morphology Comment LARGE 10/25/19 06:00: Sodium 145, Potassium 3.6, Chloride 116 H, Carbon Dioxide 22.0, Anion Gap 7, BUN 33 H, Creatinine 0.63 L, Estim Creat Clear Calc 57.12, Est GFR (MDRD) Af Amer 162, Est GFR (MDRD) Non-Af 134, BUN/Creatinine Ratio 52.5 H, Glucose 307 H, Calcium 7.7 L, Phosphorus 2.0 L, Magnesium 2.4, Total Bilirubin 3.10 H, AST 88 H, ALT 381 H, Alkaline Phosphatase 140 H, Total Protein 5.2 L, Albumin 2.4 L, Globulin 2.8, Albumin/Globulin Ratio 0.9 10/25/19 06:00: Procalcitonin 0.11 H 10/25/19 06:00: B-Natriuretic Peptide > 5000.0 H 10/25/19 06:00: TSH 3.61 10/25/19 10:35: Urine Color Yellow, Urine Clarity Clear, Urine pH 6.0, Ur Specific [place] 1.010, Urine Protein 30 H, Urine Glucose (UA) 250 H, Urine Ketones Negative, Urine Occult Blood 50 H, Urine Nitrite Negative, Urine Bilirubin Negative, Urine Urobilinogen Normal, Ur Leukocyte Esterase Negative, Urine RBC 0 SEEN, Urine WBC 0 SEEN, Ur Squamous Epith Cells 0 SEEN, Urine Bacteria RARE, Hyaline Casts 0-5 SEEN, Urine Mucus 0 SEEN 10/25/19 12:19: POC Glucose 253 H Current Medications Acetaminophen (Tylenol) 650 mg PO Q6H PRN PRN PRN Reason: Pain Score 1-10/Temp > 100.7 F Albuterol Sulfate (Ventolin Aerosols) 2.5 mg INHALATION Q2H PRN PRN PRN Reason: Dyspnea, wheezing Last Admin: 10/16/19 14:35 Dose: 2.5 mg Documented by: Albuterol/Ipratropium (Duoneb) 3 ml INHALATION Q4HWA.RT LAVELLE Last Admin: 10/25/19 10:55 Dose: 3 ml Documented by: Calamine/Phenol (Calmoseptine Ointment) 1 applic TOPICAL BID [place]; Protocol Last Admin: 10/25/19 08:23 Dose: 1 applicatio Documented by: Dextrose (D50w Syringe) 0 gm IV X1 PRN; Protocol PRN Reason: Hypoglycemia Glucagon () 1 mg IM .X1 PRN PRN Reason: Hypoglycemia Guaifenesin (Robitussin) 10 ml PO Q4H PRN PRN PRN Reason: COUGH Hydralazine HCl (Apresoline Iv) 5 mg IV Q4H PRN PRN PRN Reason: BLOOD PRESSURE Last Admin: 10/24/19 16:23 Dose: 5 mg Documented by: Sodium Chloride () 250 mls @ 15 mls/hr IV .[id number] PRN PRN Reason: Saline Flush Last Infusion: 10/19/19 19:00 Dose: Infused Documented by: Sodium Chloride () 250 mls @ 15 mls/hr IV .[id number] PRN PRN Reason: Additional IVPB Infusion Multivitamins 10 ml/ Chromium/Copper/Manganese/Seleni/Zn 1 ml/ Folic Acid 1 mg/Famotidine 40 mg/ Amino Acids/Electrolytes 2,015.2 mls @ 84 mls/hr IV .Q24H [facility] [place] Stop: 10/25/19 15:59 Last Admin: 10/24/19 16:16 Dose: 84 mls/hr Documented by: Dextrose () 1,000 mls @ 50 mls/hr IV .Q20H [facility] [place] Last Infusion: 10/25/19 09:10 Dose: 0 mls/hr Documented by: Vancomycin IV Pharmacy to Dose (1 ea/ Sodium Chloride) 500 mls @ 250 mls/hr IV PRN PRN; Protocol PRN Reason: Rx to Dose Levofloxacin (Levaquin Iv) 750 mg in 150 mls @ 100 mls/hr IV Q24 [facility] Last Infusion: 10/25/19 12:03 Dose: Infused Documented by: Metronidazole (Flagyl) 500 mg in 100 mls @ 100 mls/hr IV Q8 [facility] Vancomycin HCl () 500 mg in 100 mls @ 100 mls/hr IV Q12H [facility] [place] Multivitamins 10 ml/ Chromium/Copper/Manganese/Seleni/Zn 1 ml/ Folic Acid 1 mg/ Amino Acids/Electrolytes 2,011.2 mls @ 84 mls/hr IV .[id number] [facility] [place] Stop: 10/26/19 15:48 Insulin Human Lispro (Humalog Kwikpen (Bkc)) 0 unit SC Q6 [facility] [place]; Protocol Last Admin: 10/25/19 12:21 Dose: 4 units Documented by: Labetalol HCl (Trandate) 10 mg IV Q4H [facility] [place] Last Admin: 10/25/19 12:20 Dose: 10 mg Documented by: Methylprednisolone (Solu-Medrol) 20 mg IV DAILY [facility] [place] Morphine Sulfate () 2 mg IV Q2H PRN PRN PRN Reason: Pain Score 6-10/10 Last Admin: 10/19/19 21:51 Dose: 2 mg Documented by: Nitroglycerin (Nitrostat) 0.4 mg SUBLINGUAL Q5M PRN PRN Reason: CARDIAC/CHEST PAIN Senna/Docusate Sodium (Senokot-S, Ami-Colace) 2 tablet PO BID PRN PRN PRN Reason: Constipation Sodium Chloride () 10 - 40 ml IV UD PRN PRN Reason: SALINE FLUSH Last Admin: 10/25/19 09:15 Dose: 20 ml Documented by: STROKE Vital Signs/Narrative: Vital Signs Temp Pulse Resp BP Pulse Ox 10/25/19 12:24 97.6 F L 81 23 H 154/78 H 98 10/25/19 11:01 80 10/25/19 10:55 82 16 Assessment/Plan This patient was seen in conjunction with Jose Rangel PA-C . I have independently interviewed and examined the patient and reviewed pertinent historical, laboratory, and other data. Please refer to Jose Rangel PA-C note for details of this patient's presentation, findings, and recommendations. I have reviewed Jose Rangel PA-C note and concur with documented findings. In brief, patient 79-year-old gentleman admitted with progressive shortness of breath. Patient has had a protracted stay. -10/25/2019 patient more lethargic than usual Physical Examination: GENERAL: Significantly lethargic HEENT: Atraumatic; EYES; Anicteric, Normal Conjunctiva NECK; supple, normal thyroid, RESPIRATORY: Diminished to auscultation CARDIOVASCULAR: Regular S1 S2, Assessment: 1. Acute metabolic encephalopathy 2. Acute hypoxic respiratory failure 3. Streptococcal pneumonia 4. Thrombocytopenia 5. Hypernatremia 6. Acute transaminitis 7. Essential hypertension 8. Dysphagia 9. Bilateral pleural effusions right greater than left with bibasilaratelectasis and/or infiltrate. 10. Infrarenal fusiform abdominal aortic aneurysm with a transverse dimension of 5.1 cm. 11. Obstipation with Large amount of fecal material is seen in the rectosigmoid colon Recommendations: 1. Options for management were reviewed Clinical Impression(s) from Imaging Studies Abdomen/Pelvis CT 10/25/19 08:21 IMPRESSION: Right pleural effusion with scarring at the right lung base. Small amount of right perihepatic fluid and small amount of free intraperitoneal air. Infrarenal fusiform abdominal aortic aneurysm with a transverse dimension of 5.1 cm. Large amount of fecal material is seen in the rectosigmoid colon. Electronically Signed: Flaco Gale, at 13:07 EDT , Service support , Brain CT 10/25/19 09:08 IMPRESSION: Chronic involutional changes of the brain. Vascular clip is seen along the left side of the cahto of [place] in keeping with prior aneurysmal clipping. Electronically Signed: Flaco Gale, at 10:39 EDT , Service support , Chest CT 10/25/19 09:08 IMPRESSION: Bilateral pleural effusions right greater than left with bibasilar atelectasis and/or infiltrate. This is superimposed on chronic emphysematous changes with bullous formation and honeycombing at the right lung base. Electronically Signed: Flaco Gale at 10:46 EDT , Service support , Inpatient E&M: [id number] [facility] L2
--- NOTE | 2019-10-25 12:19 | PCM.PN.PUL ---
Patient Problems: Active and Suspected Problems (Last Reviewed 07/15/18 @ 16:45 by April Hyatt) Severe sepsis (Acute) Acute on chronic respiratory failure with hypoxia (Acute) COPD exacerbation (Acute) Bilateral pneumonia (Acute) Suspected 2018 novel coronavirus infection (Acute) Pneumonia of both lower lobes (Acute) Respiratory failure (Acute) Subjective: The patient was seen and examined at the bedside this morning. Events from the last 24 hours have been reviewed. The patient is currently afebrile, hemodynamically stable and maintaining appropriate oxygen saturations on 2 L/min via nasal cannula. The patient remains confused and disoriented. Objective: The patient's most recent lab work, culture data and imaging studies have all been personally reviewed. - Physical Exam Vitals/I&O's: Vital Signs Temp Pulse Resp BP Pulse Ox 98.0 F 80 16 155/89 H 97 10/25/19 09:50 10/25/19 11:01 10/25/19 10:55 10/25/19 09:50 10/25/19 09:50 Oxygen Flow Rate (L/min) [3] 4 Oxygen Flow Rate (L/min) [2] 4 Oxygen Flow Rate (L/min) [1 ( 4 Initial Baseline)] Oxygen Flow Rate (L/min) 2 Oxygen Delivery Method [3] Nasal Cannula Oxygen Delivery Method [2] Nasal Cannula Oxygen Delivery Method [1 ( Nasal Cannula Initial Baseline)] Oxygen Delivery Method Nasal Cannula Weight: 131 lb 6.328 oz Body Mass Index (BMI) 21.2 Intake and Output for Last 24 Hours 10/23/19 10/24/19 10/25/19 23:59 23:59 23:59 Intake Total 3045.05 / 3045.05 1567.2 / 1567.2 1389.17 / 1389.17 Balance 3045.05 / 3045.05 1567.2 / 1567.2 1389.17 / 1389.17 General: Alert, Confused, Disoriented, - - Audibly moaning. HEENT: Atraumatic, Normocephalic Oral: Dry Mucosa Neck: Supple, No Nodes, Trachea Midline Lungs: Diminished, - - Difficult to auscultate due to audible moaning Cardiovascular: Regular rate, Regular Rhythm, Normal S1, Normal S2 Abdomen: Bowel Sounds Present, Soft, Tender Extremities: No clubbing, No cyanosis, No edema Skin: No breakdown Musculoskeletal: Cachexia Neurological: Cranial nerves II-XII grossly intact, - - No focal deficits. Labs (Last 48 Hours) 10/22/19 10/22/19 10/23/19 06:00 13:00 06:45 WBC RBC Hgb Hct MCV MCH MCHC RDW Std Deviation RDW Coeff of Xenia Plt Count Immature Gran % (Auto) Neut % (Auto) Lymph % (Auto) Garza % (Auto) Eos % (Auto) Baso % (Auto) Absolute Neuts (auto) Absolute Lymphs (auto) Nucleated RBC % Differential Comment Diff Path Review Reviewed Reviewed Reviewed Reactive Lymphocytes Platelet Estimate Plt Morphology Comment PT INR APTT Sodium Potassium Chloride Carbon Dioxide Anion Gap BUN Creatinine Estim Creat Clear Calc Est GFR (MDRD) Af Amer Est GFR (MDRD) Non-Af BUN/Creatinine Ratio Glucose Calcium Phosphorus Magnesium Total Bilirubin AST ALT Alkaline Phosphatase Lactate Dehydrogenase B-Natriuretic Peptide Total Protein Albumin Globulin Albumin/Globulin Ratio Procalcitonin TSH Urine Color Urine Clarity Urine pH Ur Specific Cutler Urine Protein Urine Glucose (UA) Urine Ketones Urine Occult Blood Urine Nitrite Urine Bilirubin Urine Urobilinogen Ur Leukocyte Esterase Urine RBC Urine WBC Ur Squamous Epith Cells Urine Bacteria Hyaline Casts Urine Mucus Heparin-induced Plt Ab POC Glucose 10/23/19 10/23/19 10/24/19 16:56 23:29 05:11 WBC RBC Hgb Hct MCV MCH MCHC RDW Std Deviation RDW Coeff of Xenia Plt Count Immature Gran % (Auto) Neut % (Auto) Lymph % (Auto) Garza % (Auto) Eos % (Auto) Baso % (Auto) Absolute Neuts (auto) Absolute Lymphs (auto) Nucleated RBC % Differential Comment Diff Path Review Reactive Lymphocytes Platelet Estimate Plt Morphology Comment PT INR APTT Sodium Potassium Chloride Carbon Dioxide Anion Gap BUN Creatinine Estim Creat Clear Calc Est GFR (MDRD) Af Amer Est GFR (MDRD) Non-Af BUN/Creatinine Ratio Glucose Calcium Phosphorus Magnesium Total Bilirubin AST ALT Alkaline Phosphatase Lactate Dehydrogenase B-Natriuretic Peptide Total Protein Albumin Globulin Albumin/Globulin Ratio Procalcitonin TSH Urine Color Urine Clarity Urine pH Ur Specific [place] Urine Protein Urine Glucose (UA) Urine Ketones Urine Occult Blood Urine Nitrite Urine Bilirubin Urine Urobilinogen Ur Leukocyte Esterase Urine RBC Urine WBC Ur Squamous Epith Cells Urine Bacteria Hyaline Casts Urine Mucus Heparin-induced Plt Ab POC Glucose 235 H 233 H 201 H 04/20/20 04/20/20 04/20/20 06:28 06:28 06:28 WBC 22.4 H RBC 4.27 L Hgb 13.5 Hct 41.6 MCV 97.4 H MCH 31.6 MCHC 32.5 RDW Std Deviation 47.8 H RDW Coeff of Xenia 13.4 Plt Count 42 L* Immature Gran % (Auto) 0.900 Neut % (Auto) 93.4 H Lymph % (Auto) 0.3 L Garza % (Auto) 5.2 Eos % (Auto) 0.0 Baso % (Auto) 0.2 Absolute Neuts (auto) 20.9 H Absolute Lymphs (auto) 0.06 L Nucleated RBC % 3.3 Differential Comment SCANNED Diff Path Review Reviewed Reactive Lymphocytes RARE Platelet Estimate MKD DEC Plt Morphology Comment PT INR APTT Sodium 148 H Potassium 4.0 Chloride 118 H Carbon Dioxide 23.0 Anion Gap 7 BUN 45 H Creatinine 0.79 Estim Creat Clear Calc 57.60 Est GFR (MDRD) Af Amer 125 Est GFR (MDRD) Non-Af 103 BUN/Creatinine Ratio 57.2 H Glucose 235 H Calcium 8.0 L Phosphorus 1.9 L Magnesium 2.5 Total Bilirubin 3.20 H AST 166 H ALT 556 H Alkaline Phosphatase 130 H Lactate Dehydrogenase 811 H B-Natriuretic Peptide Total Protein 5.5 L Albumin 2.7 L Globulin 2.8 Albumin/Globulin Ratio 1.0 Procalcitonin TSH Urine Color Urine Clarity Urine pH Ur Specific [place] Urine Protein Urine Glucose (UA) Urine Ketones Urine Occult Blood Urine Nitrite Urine Bilirubin Urine Urobilinogen Ur Leukocyte Esterase Urine RBC Urine WBC Ur Squamous Epith Cells Urine Bacteria Hyaline Casts Urine Mucus Heparin-induced Plt Ab Pending POC Glucose 10/24/19 10/24/19 10/24/19 06:28 11:36 17:32 WBC RBC Hgb Hct MCV MCH MCHC RDW Std Deviation RDW Coeff of Xenia Plt Count Immature Gran % (Auto) Neut % (Auto) Lymph % (Auto) Garza % (Auto) Eos % (Auto) Baso % (Auto) Absolute Neuts (auto) Absolute Lymphs (auto) Nucleated RBC % Differential Comment Diff Path Review Reactive Lymphocytes Platelet Estimate Plt Morphology Comment PT 19.3 H INR 1.7 APTT 28.2 Sodium Potassium Chloride Carbon Dioxide Anion Gap BUN Creatinine Estim Creat Clear Calc Est GFR (MDRD) Af Amer Est GFR (MDRD) Non-Af BUN/Creatinine Ratio Glucose Calcium Phosphorus Magnesium Total Bilirubin AST ALT Alkaline Phosphatase Lactate Dehydrogenase B-Natriuretic Peptide Total Protein Albumin Globulin Albumin/Globulin Ratio Procalcitonin TSH Urine Color Urine Clarity Urine pH Ur Specific [place] Urine Protein Urine Glucose (UA) Urine Ketones Urine Occult Blood Urine Nitrite Urine Bilirubin Urine Urobilinogen Ur Leukocyte Esterase Urine RBC Urine WBC Ur Squamous Epith Cells Urine Bacteria Hyaline Casts Urine Mucus Heparin-induced Plt Ab POC Glucose 218 H 272 H 10/25/19 10/25/19 10/25/19 00:05 05:03 06:00 WBC 25.8 H RBC 4.23 L Hgb 13.5 Hct 41.0 MCV 96.9 H MCH 31.9 MCHC 32.9 RDW Std Deviation 47.3 H RDW Coeff of Xenia 13.4 Plt Count 39 L* Immature Gran % (Auto) 1.500 H Neut % (Auto) 93.3 H Lymph % (Auto) 0.5 L Garza % (Auto) 4.5 Eos % (Auto) 0.0 Baso % (Auto) 0.2 Absolute Neuts (auto) 24.1 H Absolute Lymphs (auto) 0.12 L Nucleated RBC % 1.3 Differential Comment SCANNED Diff Path Review Reviewed Reactive Lymphocytes Platelet Estimate MKD DEC Plt Morphology Comment LARGE PT INR APTT Sodium Potassium Chloride Carbon Dioxide Anion Gap BUN Creatinine Estim Creat Clear Calc Est GFR (MDRD) Af Amer Est GFR (MDRD) Non-Af BUN/Creatinine Ratio Glucose Calcium Phosphorus Magnesium Total Bilirubin AST ALT Alkaline Phosphatase Lactate Dehydrogenase B-Natriuretic Peptide Total Protein Albumin Globulin Albumin/Globulin Ratio Procalcitonin TSH Urine Color Urine Clarity Urine pH Ur Specific [place] Urine Protein Urine Glucose (UA) Urine Ketones Urine Occult Blood Urine Nitrite Urine Bilirubin Urine Urobilinogen Ur Leukocyte Esterase Urine RBC Urine WBC Ur Squamous Epith Cells Urine Bacteria Hyaline Casts Urine Mucus Heparin-induced Plt Ab POC Glucose 332 H 305 H 10/25/19 10/25/19 10/25/19 06:00 06:00 06:00 WBC RBC Hgb Hct MCV MCH MCHC RDW Std Deviation RDW Coeff of Xenia Plt Count Immature Gran % (Auto) Neut % (Auto) Lymph % (Auto) Garza % (Auto) Eos % (Auto) Baso % (Auto) Absolute Neuts (auto) Absolute Lymphs (auto) Nucleated RBC % Differential Comment Diff Path Review Reactive Lymphocytes Platelet Estimate Plt Morphology Comment PT INR APTT Sodium 145 Potassium 3.6 Chloride 116 H Carbon Dioxide 22.0 Anion Gap 7 BUN 33 H Creatinine 0.63 L Estim Creat Clear Calc 57.12 Est GFR (MDRD) Af Amer 162 Est GFR (MDRD) Non-Af 134 BUN/Creatinine Ratio 52.5 H Glucose 307 H Calcium 7.7 L Phosphorus 2.0 L Magnesium 2.4 Total Bilirubin 3.10 H AST 88 H ALT 381 H Alkaline Phosphatase 140 H Lactate Dehydrogenase B-Natriuretic Peptide Pending Total Protein 5.2 L Albumin 2.4 L Globulin 2.8 Albumin/Globulin Ratio 0.9 Procalcitonin 0.11 H TSH Urine Color Urine Clarity Urine pH Ur Specific [place] Urine Protein Urine Glucose (UA) Urine Ketones Urine Occult Blood Urine Nitrite Urine Bilirubin Urine Urobilinogen Ur Leukocyte Esterase Urine RBC Urine WBC Ur Squamous Epith Cells Urine Bacteria Hyaline Casts Urine Mucus Heparin-induced Plt Ab POC Glucose 10/25/19 10/25/19 06:00 10:35 WBC RBC Hgb Hct MCV MCH MCHC RDW Std Deviation RDW Coeff of Xenia Plt Count Immature Gran % (Auto) Neut % (Auto) Lymph % (Auto) Garza % (Auto) Eos % (Auto) Baso % (Auto) Absolute Neuts (auto) Absolute Lymphs (auto) Nucleated RBC % Differential Comment Diff Path Review Reactive Lymphocytes Platelet Estimate Plt Morphology Comment PT INR APTT Sodium Potassium Chloride Carbon Dioxide Anion Gap BUN Creatinine Estim Creat Clear Calc Est GFR (MDRD) Af Amer Est GFR (MDRD) Non-Af BUN/Creatinine Ratio Glucose Calcium Phosphorus Magnesium Total Bilirubin AST ALT Alkaline Phosphatase Lactate Dehydrogenase B-Natriuretic Peptide Total Protein Albumin Globulin Albumin/Globulin Ratio Procalcitonin TSH Pending Urine Color Yellow Urine Clarity Clear Urine pH 6.0 Ur Specific Cutler 1.010 Urine Protein 30 H Urine Glucose (UA) 250 H Urine Ketones Negative Urine Occult Blood 50 H Urine Nitrite Negative Urine Bilirubin Negative Urine Urobilinogen Normal Ur Leukocyte Esterase Negative Urine RBC 0 SEEN Urine WBC 0 SEEN Ur Squamous Epith Cells 0 SEEN Urine Bacteria RARE Hyaline Casts 0-5 SEEN Urine Mucus 0 SEEN Heparin-induced Plt Ab POC Glucose Clinical Impression(s) from Imaging Studies Chest X-Ray 10/14/19 01:05 IMPRESSION: Bilateral lower lobe pneumonia. Electronically Signed: Temi Moyan, at 1:29 EDT Tel , Service support , Chest X-Ray 10/14/19 02:02 IMPRESSION: Diffuse ill-defined opacities are seen more prominent in the perihilar regions and lung bases suggesting bilateral pneumonia or pulmonary edema. Electronically Signed: Membrenocira Richards, at 4:03 EDT Tel , Service support , KUB X-Ray 10/14/19 02:40 IMPRESSION: An NG tube is seen with tip within the gastric lumen is in good position. Electronically Signed: Membrenocira Richards, at 2:58 EDT Tel , Service support , Chest CTA 10/14/19 14:27 IMPRESSION: No demonstrated pulmonary embolism or arterial dissection. Bilateral pleural effusions associated with dependent consolidation within the lower lobes. Atherosclerosis. Electronically Signed: Kaila Nicole MD at 15:58 EDT Tel , Service support , Chest X-Ray 10/16/19 20:45 IMPRESSION: Continued severe interstitial and airspace infiltrates most pronounced in the lower right lung. Pneumonia is possible in the right lower lung. Small effusions are seen. Electronically Signed: Thaddeus Milton MD at 22:04 EDT , Service support , Liver Ultrasound 10/18/19 09:51 IMPRESSION: Normal right upper quadrant ultrasound examination. Electronically Signed: Flaco Gale, at 15:17 EDT , Service support , Chest X-Ray 04/14/20 10:50 IMPRESSION: Stable examination. Electronically Signed: Flaco Gale, at 11:58 EDT , Service support , Chest X-Ray 10/18/19 14:15 IMPRESSION: Status post left thoracentesis. There is no evidence of pneumothorax. Electronically Signed: Flaco Gale, at 15:16 EDT , Service support , Thoracentesis Ultrasound 10/18/19 14:47 IMPRESSION: Ultrasound-guided left thoracentesis. Electronically Signed: Flaco Gale, at 14:59 EDT , Service support , Brain CT 10/19/19 08:23 IMPRESSION: Chronic involutional changes of the brain. Vascular clip is seen in the left [place] suggestion of prior clipping of an aneurysm. Electronically Signed: Flaco Gale, at 11:30 EDT , Service support , Thoracentesis Ultrasound 10/20/19 01:30 IMPRESSION: Successful ultrasound-guided left thoracentesis. Electronically Signed: Temi Richards, at 10:46 EDT Tel , Service support , Chest X-Ray 10/20/19 10:59 IMPRESSION: Markedly decreased right pleural effusion. Resolved left pleural effusion. There is no evidence of pneumothorax. Electronically Signed: Temi Richards at 12:11 EDT Tel , Service support , Chest X-Ray 10/24/19 05:55 IMPRESSION: Stable examination. Electronically Signed: Flaco Gale, at 8:50 EDT , Service support , Brain CT 10/25/19 09:08 IMPRESSION: Chronic involutional changes of the brain. Vascular clip is seen along the left side of the [place] in keeping with prior aneurysmal clipping. Electronically Signed: Flaco Shahla, at 10:39 EDT , Service support , Chest CT 10/25/19 09:08 IMPRESSION: Bilateral pleural effusions right greater than left with bibasilar atelectasis and/or infiltrate. This is superimposed on chronic emphysematous changes with bullous formation and honeycombing at the right lung base. Electronically Signed: Flaco Shahla, at 10:46 EDT , Service support , Current Medications Acetaminophen (Tylenol) 650 mg PO Q6H PRN PRN PRN Reason: Pain Score 1-10/Temp > 100.7 F Albuterol Sulfate (Ventolin Aerosols) 2.5 mg INHALATION Q2H PRN PRN PRN Reason: Dyspnea, wheezing Last Admin: 10/16/19 14:35 Dose: 2.5 mg Documented by: Albuterol/Ipratropium (Duoneb) 3 ml INHALATION Q4HWA.RT [facility]AVELLE Last Admin: 10/25/19 10:55 Dose: 3 ml Documented by: Calamine/Phenol (Calmoseptine Ointment) 1 applic TOPICAL BID [facility]ELLE; Protocol Last Admin: 10/25/19 08:23 Dose: 1 applicatio Documented by: Dextrose (D50w Syringe) 0 gm IV X1 PRN; Protocol PRN Reason: Hypoglycemia Glucagon () 1 mg IM .X1 PRN PRN Reason: Hypoglycemia Guaifenesin (Robitussin) 10 ml PO Q4H PRN PRN PRN Reason: COUGH Hydralazine HCl (Apresoline Iv) 5 mg IV Q4H PRN PRN PRN Reason: BLOOD PRESSURE Last Admin: 10/24/19 16:23 Dose: 5 mg Documented by: Sodium Chloride () 250 mls @ 15 mls/hr IV .[id number] PRN PRN Reason: Saline Flush Last Infusion: 10/19/19 19:00 Dose: Infused Documented by: Sodium Chloride () 250 mls @ 15 mls/hr IV .[id number] PRN PRN Reason: Additional IVPB Infusion Multivitamins 10 ml/ Chromium/Copper/Manganese/Seleni/Zn 1 ml/ Folic Acid 1 mg/Famotidine 40 mg/ Amino Acids/Electrolytes 2,015.2 mls @ 84 mls/hr IV .Q24H [facility] Stop: 10/25/19 15:59 Last Admin: 10/24/19 16:16 Dose: 84 mls/hr Documented by: Dextrose () 1,000 mls @ 50 mls/hr IV .Q20H [facility] Last Infusion: 10/25/19 09:10 Dose: 0 mls/hr Documented by: Vancomycin IV Pharmacy to Dose (1 ea/ Sodium Chloride) 500 mls @ 250 mls/hr IV X1 PRN; Protocol PRN Reason: Rx to Dose Levofloxacin (Levaquin Iv) 750 mg in 150 mls @ 100 mls/hr IV Q24 [place] Last Infusion: 10/25/19 12:03 Dose: Infused Documented by: Multivitamins 10 ml/ Chromium/Copper/Manganese/Seleni/Zn 1 ml/ Folic Acid 1 mg/Famotidine 40 mg/ Amino Acids/Electrolytes 2,015.2 mls @ 84 mls/hr IV .Q24H [facility] Stop: 10/26/19 15:48 Insulin Human Lispro (Humalog Kwikpen (Bkc)) 0 unit SC Q6 [facility]; Protocol Last Admin: 10/25/19 05:05 Dose: 6 units Documented by: Labetalol HCl (Trandate) 10 mg IV Q4H [facility] Last Admin: 10/25/19 08:22 Dose: 10 mg Documented by: Methylprednisolone (Solu-Medrol) 20 mg IV DAILY [facility] Metronidazole (Flagyl) 500 mg PO TID [facility] Morphine Sulfate () 2 mg IV Q2H PRN PRN PRN Reason: Pain Score 6-10/10 Last Admin: 10/19/19 21:51 Dose: 2 mg Documented by: Nitroglycerin (Nitrostat) 0.4 mg SUBLINGUAL Q5M PRN PRN Reason: CARDIAC/CHEST PAIN Senna/Docusate Sodium (Senokot-S, Ami-Colace) 2 tablet PO BID PRN PRN PRN Reason: Constipation Sodium Chloride () 10 - 40 ml IV UD PRN PRN Reason: SALINE FLUSH Last Admin: 10/25/19 09:15 Dose: 20 ml Documented by: Medical Necessity - Tobacco Use Smoking Status: Former smoker Tobacco Use: Non-smoker Assessment/Plan All Active Problems (Last Reviewed 07/15/18 @ 16:45 by April Hyatt) Thrombocytopenia (Acute) Severe sepsis (Acute) Acute on chronic respiratory failure with hypoxia (Acute) COPD exacerbation (Acute) Bilateral pneumonia (Acute) Suspected 2019 novel coronavirus infection (Acute) Pneumonia of both lower lobes (Acute) Respiratory failure (Acute) Bronchitis (Acute) URI (upper respiratory infection) (Acute) Sinusitis, acute maxillary (Acute) RECOMMENDATIONS: 1. Continue to wean supplemental oxygen to maintain saturations at or above 90%. 2. Check TSH and BNP. 3. Consider repeat thoracentesis, as part of patient's infectious work-up. 4. Continue antimicrobials per ID recommendations. IMPRESSIONS: 1. Acute hypoxemic respiratory failure Likely secondary to COPD with exacerbation precipitated by bilateral lower lobe pneumonia. COVID testing was negative. The patient improved with supportive measures including invasive mechanical ventilatory support, antimicrobials, bronchodilators and steroids. He was able to be extubated on the morning of October 14. His oxygen will be weaned to maintain saturations at or above 90%. Encourage incentive spirometer use and mobilize patient as tolerated. CT chest obtained this morning did reveal evidence of bilateral pleural effusions. Consideration can be given to obtaining an ultrasound-guided thoracentesis as part of his repeat infectious work-up. 2. Encephalopathy Unclear precipitating etiology. CT head was negative. Concern for new underlying infectious process that may be contributing to the patient's encephalopathic state. In addition, we will plan to check a TSH level as well. 3. Coronary artery disease status post CABG Continue outpatient cardiac medication regimen. 4. Chronic alcohol dependency/chronic pain syndrome/anxiety/depression/hypertension/hyperlipidemia Complicates care, management, recovery and prognosis. Continue home medications as indicated. This note was generated with TrueAccordation software. It may contain incorrect words, spelling, and punctuation that were not noted in checking the note before signing. Inpatient E&M: 83183 Subs Hosp L3
[2019-10-25 12:31] LABS: Bedside Glucose 253 mg/dL (70-110)
[2019-10-25 12:39] LABS: Thyroid Stim Hormone (TSH) 3.61 uIU/mL (0.358-3.74)
[2019-10-25 12:52] LABS: BNP,B-Type NATRIURETIC PEPTIDE > 5000.0 pg/mL (0-100)
--- NOTE | 2019-10-25 13:45 | PCM.RX.CS ---
Consult Pharmacy has been consulted to manage selected antiobiotic: Vancomycin Type of Consult: New start Suspected Infection: Pneumonia Prior Doses of Antibiotics Received/Current Regimen: NONE Labs: Sodium 145 mmol/L (136-145) 10/25/19 06:00 Potassium 3.6 mmol/L (3.5-5.1) 10/25/19 06:00 Chloride 116 mmol/L (98-107) H 10/25/19 06:00 Carbon Dioxide 22.0 mmol/L (21.0-32.0) 10/25/19 06:00 Anion Gap 7 (5-15) 10/25/19 06:00 BUN 33 mg/dL (7-18) H 10/25/19 06:00 Creatinine 0.63 mg/dL (0.70-1.30) L 10/25/19 06:00 Est GFR (MDRD) Af Amer 162 mL/min (>60) 10/25/19 06:00 Est GFR (MDRD) Non-Af 134 mL/min (>60) 10/25/19 06:00 BUN/Creatinine Ratio 52.5 RATIO (10-20) H 10/25/19 06:00 Glucose 307 mg/dL (74-106) H 10/25/19 06:00 Microbiology: Microbiology 10/18/19 14:20 Fluid - Thoracentesis Fluid Gram Stain - Final 10/18/19 14:20 Fluid - Thoracentesis Fluid Body Fluid Culture - Final No growth aerobically. 10/18/19 14:20 Fluid - Thoracentesis Fluid Anaerobic Culture - Final No growth in 5 days. 10/14/19 00:38 Blood Culture (Wb) - Right Hand Blood Culture - Final No growth in 5 days. 10/14/19 00:40 Blood Culture (Wb) - Anticubital Left Blood Culture - Final No growth in 5 days. 10/14/19 Unknown Sputum, Induced/Lukens Gram Stain - Final 10/14/19 Unknown Sputum, Induced/Lukens Respiratory Culture - Final Strep not Strep pneumo 10/14/19 01:35 Urine, Clean Catch Urine Culture - Final Culture exhibits no growth. 10/14/19 00:38 Mucosa - Throat Group A Streptococcus Rapid Screen - Final 10/14/19 Unknown Urine Catheter - [place] Gram Stain - Final 10/14/19 14:15 Urine Catheter - [place] Streptococcus pneumoniae Antigen (M - Final 10/14/19 14:15 Urine Catheter - [place] Legionella Antigen - Final 10/14/19 00:49 Mucosa - Nose Respiratory Panel (PCR) - Final 10/14/19 00:49 Mucosa - Nose Rapid RSV (DFA) - Final 10/14/19 00:49 Mucosa - Nose Influenza Types A,B Direct FA (MARC) - Final Weight used for dosin kg Estimated Creatinine Clearance: 57 ML/MIN Goal Trough: 15-20 mcg/mL Pharmacy Plan for Drug Dosing: PLAN/RECOMMENDATIONS 1. Vancomycin loading dose 1500mg IV x1 administered 10/25/19 @1221 2. Vancomycin 500mg IV Q12hr to start 10/26/19 @0000 3. Trough prior to 4th total dose per protocol 10/26/19 @2330 4. Pharmacy Service will continue to monitor and adjust dosing as required.
--- NOTE | 2019-10-25 13:47 | CASEMGMT ---
FLORIDALMA received call from Esther in TCU and patient was approved. FLORIDALMA let her know patient is not ready today. Plan: [facility] TCU when medically ready Antonette ROBERT
--- NOTE | 2019-10-25 15:07 | PCM.CONS.GEN ---
Reason for Consult Date of Consultation: 10/25/19 History of Present Illness: The patient is a 69 year old M originally admitted on 10/14 due to pneumonia was put on the vent in the ICU. Patient's COVID test was negative. Patient did also have centesis of his pleural effusions and patient has a history of COPD. Prior to admission per the patient had no issues with confusion did have chronic pain in his neck due to cervical stenosis and was seen pain management otherwise it was able to do other activities of daily life without assistance. Patient is white blood cell count has ranged from about 13-16 initially and has continued to go up over the last couple days currently it is 25. Patient got a CT abdomen pelvis which did show a small amount of free fluid and small moderate free air in the right upper quadrant and a large amount of stool in the rectum, moderate pleural effusions bilaterally, 5.1 cm aortic aneurysm. Patient denies abdominal pain but will admit to neck pain, patient is only occasionally lucid. Per medical staff patient had been encephalopathic up until today did not answer questions, and even did not answer questions for them this morning. 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 SOB (shortness of breath) R06.02 HTN (hypertension) I10 Allergies [facility] Inhibitors Allergy (Verified 10/14/19 00:33) Unknown Penicillins Allergy (Verified 10/14/19 00:33) Unknown Home Medications: Ambulatory Orders Medication Instructions Recorded albuterol sulfate 90 mcg/actuation 1 dose INHALATION PRN PRN 17 Days 07/20/17 aerosol inhaler #9 bupropion HCl 150 mg tablet,12 hr 1 tab PO DAILY 30 Days #60 07/20/17 sustained-release clopidogrel 75 mg tablet 1 tab PO DAILY 30 Days #30 07/20/17 gabapentin 300 mg capsule 1 tab PO DAILY 30 Days #60 07/20/17 metoprolol tartrate 50 mg tablet 1.5 tab PO BID 30 Days #90 07/20/17 oxycodone 10 mg tablet,crush 0.5 tab PO TID 30 Days #60 07/20/17 resistant,extended release 12 hr ranolazine 1,000 mg 1 tab PO DAILY 30 Days #60 07/20/17 tablet,extended release,12 hr Cholecalciferol (Vitamin D3) 2,000 unit PO DAILY 10/14/19 [Vitamin D3] Cyclobenzaprine HCl 10 mg PO QHS PRN 10/14/19 Fexofenadine HCl 180 mg PO DAILY 10/14/19 Iron Carbonyl [Feosol] 45 mg PO DAILYCM 10/14/19 Minocycline HCl 1 tab PO DAILY 10/14/19 Rosuvastatin Calcium 5 mg PO DAILY 10/14/19 Surgical History: Surgical History (Last Reviewed 07/15/18 @ 16:45 by April Hyatt) H/O carotid endarterectomy Z98.890 H/O cataract extraction Z98.49 H/O heart bypass surgery Z98.890, Z95.1 Surgical History: - - CABG x2, bilateral carotid endarterectomy, 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 Psychiatric History: Anxiety, Depression Lives: Spouse/ Significant Other Smoking Status: Former smoker Tobacco Use: Non-smoker Alcohol: Heavy - Patient notes at least 2 beers or 2 glasses of wine each night. Drugs: None - *Family History Maternal History Items: Heart Disease, Hypertension Paternal History Items: Heart Disease, Hypertension Review of Systems Gastrointestinal: Reports: Constipation. Denies: Abdominal Pain Genitourinary: Reports: Dysuria Musculoskeletal: Reports: Neck Pain Unable to obtain accurate/complete ROS d/t: Patient is encephalopathic only able to answer a few questions. Patient Problems: Active and Suspected Problems (Last Reviewed 07/15/18 @ 16:45 by April Hyatt) Severe sepsis (Acute) Acute on chronic respiratory failure with hypoxia (Acute) COPD exacerbation (Acute) Bilateral pneumonia (Acute) Suspected 2019 novel coronavirus infection (Acute) Pneumonia of both lower lobes (Acute) Respiratory failure (Acute) - Physical Exam Vitals/I&O's: Vital Signs Temp Pulse Resp BP Pulse Ox 97.6 F L 81 23 H 154/78 H 98 10/25/19 12:24 10/25/19 12:24 10/25/19 12:24 10/25/19 12:24 10/25/19 12:24 Oxygen Flow Rate (L/min) [3] 4 Oxygen Flow Rate (L/min) [2] 4 Oxygen Flow Rate (L/min) [1 ( 4 Initial Baseline)] Oxygen Flow Rate (L/min) 2 Oxygen Delivery Method [3] Nasal Cannula Oxygen Delivery Method [2] Nasal Cannula Oxygen Delivery Method [1 ( Nasal Cannula Initial Baseline)] Oxygen Delivery Method Nasal Cannula Weight: 131 lb 6.328 oz Body Mass Index (BMI) 21.2 Intake and Output for Last 24 Hours 10/23/19 10/24/19 10/25/19 23:59 23:59 23:59 Intake Total 3045.05 / 3045.05 1567.2 / 1567.2 1389.17 / 1389.17 Output Total 200 / 200 Balance 3045.05 / 3045.05 1567.2 / 1567.2 1189.17 / 1189.17 General: Disoriented, Lethargic, - - thin HEENT: Atraumatic Lungs: Diminished - bases b/l Cardiovascular: Regular rate Abdomen: Soft, Non Tender, Non-Distended, - - large amount of stool manually disimpacted from rectum. Extremities: No clubbing, No cyanosis, No edema Neurological: - - only occasionally follows commands Psych/Mental Status: - - lethargic/encephalopathic mostly, occasionally able to answer yes/no questions Microbiology Past 72 Hours 10/18/19 14:20 Fluid - Thoracentesis Fluid Gram Stain - Final 10/18/19 14:20 Fluid - Thoracentesis Fluid Body Fluid Culture - Final No growth aerobically. 10/18/19 14:20 Fluid - Thoracentesis Fluid Anaerobic Culture - Final No growth in 5 days. Laboratory Results 10/24/19 06:28: Diff Path Review Reviewed 10/24/19 17:32: POC Glucose 272 H 10/25/19 00:05: POC Glucose 332 H 10/25/19 05:03: POC Glucose 305 H 10/25/19 06:00: WBC 25.8 H, RBC 4.23 L, Hgb 13.5, Hct 41.0, MCV 96.9 H, MCH 31.9, MCHC 32.9, RDW Std Deviation 47.3 H, RDW Coeff of Xenia 13.4, Plt Count 39 L*, Immature Gran % (Auto) 1.500 H, Neut % (Auto) 93.3 H, Lymph % (Auto) 0.5 L, [place] % (Auto) 4.5, Eos % (Auto) 0.0, Baso % (Auto) 0.2, Absolute Neuts (auto) 24.1 H, Absolute Lymphs (auto) 0.12 L, Nucleated RBC % 1.3, Differential Comment SCANNED, Diff Path Review Reviewed, Platelet Estimate MKD DEC, Plt Morphology Comment LARGE 10/25/19 06:00: Sodium 145, Potassium 3.6, Chloride 116 H, Carbon Dioxide 22.0, Anion Gap 7, BUN 33 H, Creatinine 0.63 L, Estim Creat Clear Calc 57.12, Est GFR (MDRD) Af Amer 162, Est GFR (MDRD) Non-Af 134, BUN/Creatinine Ratio 52.5 H, Glucose 307 H, Calcium 7.7 L, Phosphorus 2.0 L, Magnesium 2.4, Total Bilirubin 3.10 H, AST 88 H, ALT 381 H, Alkaline Phosphatase 140 H, Total Protein 5.2 L, Albumin 2.4 L, Globulin 2.8, Albumin/Globulin Ratio 0.9 10/25/19 06:00: Procalcitonin 0.11 H 10/25/19 06:00: B-Natriuretic Peptide > 5000.0 H 10/25/19 06:00: TSH 3.61 10/25/19 10:35: Urine Color Yellow, Urine Clarity Clear, Urine pH 6.0, Ur Specific [place] 1.010, Urine Protein 30 H, Urine Glucose (UA) 250 H, Urine Ketones Negative, Urine Occult Blood 50 H, Urine Nitrite Negative, Urine Bilirubin Negative, Urine Urobilinogen Normal, Ur Leukocyte Esterase Negative, Urine RBC 0 SEEN, Urine WBC 0 SEEN, Ur Squamous Epith Cells 0 SEEN, Urine Bacteria RARE, Hyaline Casts 0-5 SEEN, Urine Mucus 0 SEEN 10/25/19 12:19: POC Glucose 253 H Current Medications Acetaminophen (Tylenol) 650 mg PO Q6H PRN PRN PRN Reason: Pain Score 1-10/Temp > 100.7 F Albuterol Sulfate (Ventolin Aerosols) 2.5 mg INHALATION Q2H PRN PRN PRN Reason: Dyspnea, wheezing Last Admin: 10/16/19 14:35 Dose: 2.5 mg Documented by: Albuterol/Ipratropium (Duoneb) 3 ml INHALATION Q4HWA.RT LAVELLE Last Admin: 10/25/19 10:55 Dose: 3 ml Documented by: Calamine/Phenol (Calmoseptine Ointment) 1 applic TOPICAL BID LAVELLE; Protocol Last Admin: 10/25/19 08:23 Dose: 1 applicatio Documented by: Dextrose (D50w Syringe) 0 gm IV X1 PRN; Protocol PRN Reason: Hypoglycemia Glucagon () 1 mg IM .X1 PRN PRN Reason: Hypoglycemia Guaifenesin (Robitussin) 10 ml PO Q4H PRN PRN PRN Reason: COUGH Hydralazine HCl (Apresoline Iv) 5 mg IV Q4H PRN PRN PRN Reason: BLOOD PRESSURE Last Admin: 10/24/19 16:23 Dose: 5 mg Documented by: Sodium Chloride () 250 mls @ 15 mls/hr IV .[id number] PRN PRN Reason: Saline Flush Last Infusion: 10/19/19 19:00 Dose: Infused Documented by: Sodium Chloride () 250 mls @ 15 mls/hr IV .[id number] PRN PRN Reason: Additional IVPB Infusion Multivitamins 10 ml/ Chromium/Copper/Manganese/Seleni/Zn 1 ml/ Folic Acid 1 mg/Famotidine 40 mg/ Amino Acids/Electrolytes 2,015.2 mls @ 84 mls/hr IV .Q24H [place]AV[place]LE Stop: 10/25/19 15:59 Last Admin: 10/24/19 16:16 Dose: 84 mls/hr Documented by: Dextrose () 1,000 mls @ 50 mls/hr IV .Q20H [facility] Last Infusion: 10/25/19 09:10 Dose: 0 mls/hr Documented by: Vancomycin IV Pharmacy to Dose (1 ea/ Sodium Chloride) 500 mls @ 250 mls/hr IV PRN PRN; Protocol PRN Reason: Rx to Dose Levofloxacin (Levaquin Iv) 750 mg in 150 mls @ 100 mls/hr IV Q24 [facility] Last Infusion: 10/25/19 12:03 Dose: Infused Documented by: Metronidazole (Flagyl) 500 mg in 100 mls @ 100 mls/hr IV Q8 [facility] Vancomycin HCl () 500 mg in 100 mls @ 100 mls/hr IV Q12H [facility] Multivitamins 10 ml/ Chromium/Copper/Manganese/Seleni/Zn 1 ml/ Folic Acid 1 mg/ Amino Acids/Electrolytes 2,011.2 mls @ 84 mls/hr IV .[id number] [facility] Stop: 10/26/19 15:48 Insulin Human Lispro (Humalog Kwikpen (Bkc)) 0 unit SC Q6 [facility]; Protocol Last Admin: 10/25/19 12:21 Dose: 4 units Documented by: Labetalol HCl (Trandate) 10 mg IV Q4H [facility] Last Admin: 10/25/19 12:20 Dose: 10 mg Documented by: Methylprednisolone (Solu-Medrol) 20 mg IV DAILY [facility] Morphine Sulfate () 2 mg IV Q2H PRN PRN PRN Reason: Pain Score 6-10/10 Last Admin: 10/19/19 21:51 Dose: 2 mg Documented by: Nitroglycerin (Nitrostat) 0.4 mg SUBLINGUAL Q5M PRN PRN Reason: CARDIAC/CHEST PAIN Senna/Docusate Sodium (Senokot-S, Ami-Colace) 2 tablet PO BID PRN PRN PRN Reason: Constipation Sodium Chloride () 10 - 40 ml IV UD PRN PRN Reason: SALINE FLUSH Last Admin: 10/25/19 09:15 Dose: 20 ml Documented by: Assessment/Plan All Active Problems (Last Reviewed 07/15/18 @ 16:45 by April Hyatt) Thrombocytopenia (Acute) Severe sepsis (Acute) Acute on chronic respiratory failure with hypoxia (Acute) COPD exacerbation (Acute) Bilateral pneumonia (Acute) Suspected 2018 novel coronavirus infection (Acute) Pneumonia of both lower lobes (Acute) Respiratory failure (Acute) Bronchitis (Acute) URI (upper respiratory infection) (Acute) Sinusitis, acute maxillary (Acute) 69-year-old male with pneumonia admitted since 10/14 initially was in the ICU currently on 2 L nasal cannula but has been encephalopathic since admission, CT abdomen pelvis small mild pneumoperitoneum and small amount of free fluid in the abdomen, 1. He is a very complicated patient as he was admitted due to pneumonia was on the vent (coag negative) and prior to coming to the hospital per his he was A&O x3 and doing well; however since coming in he has been encephalopathic. Today is the first time he has kind of answered questions appropriately occasionally but is A&O x0. CT abdomen pelvis was done as he was having increasing white blood cell count and still issues with encephalopathy and unsure of source despite being on cefepime IV. CT abdomen pelvis did show small amount of free fluid by the liver as well as small amount of free air. Patient's abdominal exam does not show any peritoneal signs and is soft nondistended, patient also responded no (a couple of times) when asked if he had any abdominal pain but he did respond yes to any neck pain as he does have a history of chronic cervical stenosis. Also unable to say if this small amount of free air or fluid is new or from admission as patient has never really complained of abdominal pain or had imaging of this area. To complicate situation further patient's platelets were initially 112 when he came in currently they are 39 for last 5 days they have been less than 50,000. Discussed with the patient and his that even if the patient had surgery unable to say we will be able to find an obvious source or that he would be able to get off the vent as he does have fairly large pleural effusions bilaterally with a history of COPD and has been encephalopathic since admission. Also discussed that if she were to want surgery would recommend transfer to tertiary care facility as we do not have platelets on hand, which he could likely require initially and then post surgery due to the thrombocytopenia. Also discussed that even if he she did go elsewhere to have surgery since he is fairly sick he may make it through surgery but postoperatively may not do well unable to say for sure. Surgery would likely entail exploratory laparoscopy, possible laparotomy, possible bowel resection, possible stoma. Patient's states that one thing he never wanted would be to be on life support or be in a skilled nursing.?Patient is currently DNR CCA, no intubation. Currently patient's /POA wants to continue antibiotics as they have been changed from cefepime to vancomycin, Flagyl, Levaquin IV and hold off on any transfer/surgery. She does understand that if he does have a possible perforation in his abdomen causing air and fluid this could get worse. Patient also had a large amount of stool in his rectum that was palpable on exam, I did manually disimpact patient at bedside and got a large amount of stool no signs of any bleeding. Adelina Brna M.D. Pager: [phone] [facility] [address] [place] [address], Outpatient [place], [address] [place] [id number] Office: [phone] Inpatient E&M: [id number] Init Hosp L3
--- NOTE | 2019-10-25 15:26 | CASEMGMT ---
According to the MMO website, the following are in-network tertiary facilities: [facility], [facility], [facility], [facility], [facility], [facility], [place] [facility], [facility], and . Sa[facility]l LLOYD CM
[2019-10-25] MEDS: metroNIDAZOLE 500 MG/100 ML BAG 100 MG IV ×2 (15:37→22:03)
[2019-10-25 19:20] LABS: Heparin-Induced Plt Ab 0.084 OD (0.000-0.400)
--- NOTE | 2019-10-25 22:53 | CPS ---
Pt. is not compliant with BiPAP; 2.5 L N/C satting 92%
[2019-10-26] VITALS (15 sets, daily range): BP systolic 114–162; BP diastolic 63–92; PULSE 68–94; RESP 18–20; TEMP 36.4–36.8; O2SAT 90–98; BMI 21.7
[2019-10-26] MEDS: Insulin Lispro 100 UNIT/ML INSULN.PEN SC ×3 (00:09→11:49)
[2019-10-26] MEDS: Vancomycin IV 500 MG/100 ML BAG 100 MG IV ×2 (00:10→11:48)
[2019-10-26] MEDS: Morphine 2 MG/ML Syringe IV (00:22)
[2019-10-26 00:26] LABS: Bedside Glucose 291 mg/dL (70-110)
[2019-10-26 01:46] LABS: Bedside Glucose 286 mg/dL (70-110)
[2019-10-26] MEDS: metroNIDAZOLE 500 MG/100 ML BAG 100 MG IV ×3 (05:40→21:03)
[2019-10-26 05:51] LABS: Bedside Glucose 300 mg/dL (70-110)
[2019-10-26 06:27] LABS: Absolute Lymphocyte Count 0.14 X10^3/uL (0.83-4.51); Absolute Neutrophil Count 18.1 X10^3/uL (2.0-7.7); Basophil# 0.02 X10^3/uL; Basophil% 0.1 % (0-1); Eosinophil# 0.01 X10^3/uL; Eosinophils% 0.1 % (0-5); Hematocrit 38.5 % (40-54); Hemoglobin 12.7 g/dL (13.0-16.5); Lymphocyte # 0.14 X10^3/ul (4.0); Lymphocyte % 0.7 % (19-41); Mean Corpuscular Hgb 31.7 pg (27.0-32.0); Monocyte# 0.92 X10^3/uL; Monocyte% 4.8 % (0-10); NRBC Flagged by Analyzer 0.2 % (0-5); Neutrophil # 18.11 X10^3/uL (2.7-7.7); Neutrophil % 93.6 % (47-70); POSITIVE COUNT YES; POSITIVE DIFFERENTIAL YES; RBC Distribution Width CV 13.8 % (11.6-14.6); Red Blood Count 4.01 M/mm3 (4.6-6.2); White Blood Count 19.3 K/mm3 (4.4-11.0)
[2019-10-26 06:51] LABS: ALB/GLOB Ratio 0.6 RATIO (0.9-2.4); AST(SGOT) 67 U/L (15-37); Alanine Aminotransfer ALT/SGPT 271 U/L (16-61); Albumin, Serum 1.9 g/dL (3.2-5.0); Alkaline Phosphatase 122 U/L (45-117); Anion Gap 6 (5-15); BUN 26 mg/dL (7-18); BUN/Creat Ratio 45.9 RATIO (10-20); Calcium,Total 7.6 mg/dL (8.5-10.1); Chloride 115 mmol/L (98-107); Creatinine, Serum 0.57 mg/dL (0.70-1.30); EST Glomerular Filtration Rate 151 mL/min (>60); Est Glom Filt Rate - Afr Amer 183 mL/min (>60); Estimated Creatinine Clearance 58.55 ml/min; Glucose 308 mg/dL (74-106); Potassium 3.8 mmol/L (3.5-5.1); Protein, Total 4.9 g/dL (6.4-8.2); Sodium Level 143 mmol/L (136-145)
[2019-10-26 06:53] LABS: Differential Indicated SCAN CRITERIA MET
[2019-10-26 06:54] LABS: Platelet Count 35 K/mm3 (150-450)
[2019-10-26 07:27] LABS: Platelet Estimate MKD DEC (ADEQ)
[2019-10-26 07:28] LABS: Differential Comment SCANNED; Platelet Morphology LARGE; Vacuolated Cells 2+
[2019-10-26] MEDS: 0.9% Saline Lock 10 ML Syringe IV ×5 (07:58→18:03)
[2019-10-26] MEDS: Menthol/Lanolin/Calamine/Znox 113 GM Tube 1 APPLIC TOPICAL ×2 (08:01→21:02)
--- NOTE | 2019-10-26 08:50 | PCM.PN.PUL ---
Patient Problems: Active and Suspected Problems (Last Reviewed 07/15/18 @ 16:45 by April Hyatt) Severe sepsis (Acute) Acute on chronic respiratory failure with hypoxia (Acute) COPD exacerbation (Acute) Bilateral pneumonia (Acute) Suspected 2018 novel coronavirus infection (Acute) Pneumonia of both lower lobes (Acute) Respiratory failure (Acute) Subjective: The patient was seen and examined at the bedside this morning. Events from the last 24 hours have been reviewed. The patient is currently afebrile, hemodynamically stable and maintaining appropriate oxygen saturations on 2 L/min via nasal cannula. Imaging work-up yesterday did reveal evidence of bilateral pleural effusions along with a small amount of free intraperitoneal air on CT abdomen. The patient was subsequently evaluated by general surgery. For now, there are no plans for surgical intervention. White count is now downtrending. Platelet count remains low at 35,000. TSH yesterday was within normal limits. However, BNP was elevated to greater than 5000. Per nursing documentation, the patient is overall net +19 L for the hospital admission. Therefore, I did start him on scheduled IV Lasix this morning. Objective: The patient's most recent lab work, culture data and imaging studies have all been personally reviewed. Infectious work-up has been largely unrevealing to date. Surface echocardiogram dated October 20 revealed normal LV size with segmental dysfunction of the LV. Ejection fraction was estimated to be 35%. Pulmonary artery systolic pressure was estimated to be 47 mmHg. - Physical Exam Vitals/I&O's: Vital Signs Temp Pulse Resp BP Pulse Ox 97.5 F L 87 18 149/92 H 98 10/26/19 07:57 10/26/19 07:57 10/26/19 07:57 10/26/19 07:57 10/26/19 07:57 Oxygen Flow Rate (L/min) [3] 4 Oxygen Flow Rate (L/min) [2] 4 Oxygen Flow Rate (L/min) [1 ( 4 Initial Baseline)] Oxygen Flow Rate (L/min) 2 Oxygen Delivery Method [3] Nasal Cannula Oxygen Delivery Method [2] Nasal Cannula Oxygen Delivery Method [1 ( Nasal Cannula Initial Baseline)] Oxygen Delivery Method Nasal Cannula Weight: 134 lb 11.239 oz Body Mass Index (BMI) 21.2 Intake and Output for Last 24 Hours 10/24/19 10/25/19 10/26/19 23:59 23:59 23:59 Intake Total 1567.2 / 1567.2 4244.37 / 4244.37 200 / 200 Output Total 200 / 200 Balance 1567.2 / 1567.2 4044.37 / 4044.37 200 / 200 General: Alert, - - Incoherent speech HEENT: Atraumatic, Normocephalic Oral: No Gingival or Mucosal Lesions/ Ulcerations Neck: Supple, No Nodes, Trachea Midline Lungs: Diminished Cardiovascular: Regular rate, Regular Rhythm, Normal S1, Normal S2 Abdomen: Bowel Sounds Present, Soft, Non-Distended Extremities: No clubbing, No cyanosis Skin: No breakdown Musculoskeletal: Cachexia Neurological: - - No focal neurological deficits. Psych/Mental Status: Anxious Labs (Last 48 Hours) 10/22/19 10/22/19 10/23/19 06:00 13:00 06:45 WBC RBC Hgb Hct MCV MCH MCHC RDW Std Deviation RDW Coeff of [place] Plt Count Immature Gran % (Auto) Neut % (Auto) Lymph % (Auto) [place] % (Auto) Eos % (Auto) Baso % (Auto) Absolute Neuts (auto) Absolute Lymphs (auto) Nucleated RBC % Differential Comment Diff Path Review Reviewed Reviewed Reviewed Toxic Vacuolation Platelet Estimate Plt Morphology Comment Sodium Potassium Chloride Carbon Dioxide Anion Gap BUN Creatinine Estim Creat Clear Calc Est GFR (MDRD) Af Amer Est GFR (MDRD) Non-Af BUN/Creatinine Ratio Glucose Calcium Phosphorus Magnesium Total Bilirubin AST ALT Alkaline Phosphatase B-Natriuretic Peptide Total Protein Albumin Globulin Albumin/Globulin Ratio Procalcitonin TSH Urine Color Urine Clarity Urine pH Ur Specific [place] Urine Protein Urine Glucose (UA) Urine Ketones Urine Occult Blood Urine Nitrite Urine Bilirubin Urine Urobilinogen Ur Leukocyte Esterase Urine RBC Urine WBC Ur Squamous Epith Cells Urine Bacteria Hyaline Casts Urine Mucus Heparin-induced Plt Ab POC Glucose 10/24/19 10/24/19 10/24/19 06:28 06:28 11:36 WBC RBC Hgb Hct MCV MCH MCHC RDW Std Deviation RDW Coeff of [place] Plt Count Immature Gran % (Auto) Neut % (Auto) Lymph % (Auto) [place] % (Auto) Eos % (Auto) Baso % (Auto) Absolute Neuts (auto) Absolute Lymphs (auto) Nucleated RBC % Differential Comment Diff Path Review Reviewed Toxic Vacuolation Platelet Estimate Plt Morphology Comment Sodium Potassium Chloride Carbon Dioxide Anion Gap BUN Creatinine Estim Creat Clear Calc Est GFR (MDRD) Af Amer Est GFR (MDRD) Non-Af BUN/Creatinine Ratio Glucose Calcium Phosphorus Magnesium Total Bilirubin AST ALT Alkaline Phosphatase B-Natriuretic Peptide Total Protein Albumin Globulin Albumin/Globulin Ratio Procalcitonin TSH Urine Color Urine Clarity Urine pH Ur Specific [place] Urine Protein Urine Glucose (UA) Urine Ketones Urine Occult Blood Urine Nitrite Urine Bilirubin Urine Urobilinogen Ur Leukocyte Esterase Urine RBC Urine WBC Ur Squamous Epith Cells Urine Bacteria Hyaline Casts Urine Mucus Heparin-induced Plt Ab 0.084 POC Glucose 218 H 10/24/19 10/25/19 10/25/19 17:32 00:05 05:03 WBC RBC Hgb Hct MCV MCH MCHC RDW Std Deviation RDW Coeff of [place] Plt Count Immature Gran % (Auto) Neut % (Auto) Lymph % (Auto) [place] % (Auto) Eos % (Auto) Baso % (Auto) Absolute Neuts (auto) Absolute Lymphs (auto) Nucleated RBC % Differential Comment Diff Path Review Toxic Vacuolation Platelet Estimate Plt Morphology Comment Sodium Potassium Chloride Carbon Dioxide Anion Gap BUN Creatinine Estim Creat Clear Calc Est GFR (MDRD) Af Amer Est GFR (MDRD) Non-Af BUN/Creatinine Ratio Glucose Calcium Phosphorus Magnesium Total Bilirubin AST ALT Alkaline Phosphatase B-Natriuretic Peptide Total Protein Albumin Globulin Albumin/Globulin Ratio Procalcitonin TSH Urine Color Urine Clarity Urine pH Ur Specific [place] Urine Protein Urine Glucose (UA) Urine Ketones Urine Occult Blood Urine Nitrite Urine Bilirubin Urine Urobilinogen Ur Leukocyte Esterase Urine RBC Urine WBC Ur Squamous Epith Cells Urine Bacteria Hyaline Casts Urine Mucus Heparin-induced Plt Ab POC Glucose 272 H 332 H 305 H 10/25/19 10/25/19 10/25/19 06:00 06:00 06:00 WBC 25.8 H RBC 4.23 L Hgb 13.5 Hct 41.0 MCV 96.9 H MCH 31.9 MCHC 32.9 RDW Std Deviation 47.3 H RDW Coeff of X[place] 13.4 Plt Count 39 L* Immature Gran % (Auto) 1.500 H Neut % (Auto) 93.3 H Lymph % (Auto) 0.5 L [place] % (Auto) 4.5 Eos % (Auto) 0.0 Baso % (Auto) 0.2 Absolute Neuts (auto) 24.1 H Absolute Lymphs (auto) 0.12 L Nucleated RBC % 1.3 Differential Comment SCANNED Diff Path Review Reviewed Toxic Vacuolation Platelet Estimate MKD DEC Plt Morphology Comment LARGE Sodium 145 Potassium 3.6 Chloride 116 H Carbon Dioxide 22.0 Anion Gap 7 BUN 33 H Creatinine 0.63 L Estim Creat Clear Calc 57.12 Est GFR (MDRD) Af Amer 162 Est GFR (MDRD) Non-Af 134 BUN/Creatinine Ratio 52.5 H Glucose 307 H Calcium 7.7 L Phosphorus 2.0 L Magnesium 2.4 Total Bilirubin 3.10 H AST 88 H ALT 381 H Alkaline Phosphatase 140 H B-Natriuretic Peptide Total Protein 5.2 L Albumin 2.4 L Globulin 2.8 Albumin/Globulin Ratio 0.9 Procalcitonin 0.11 H TSH Urine Color Urine Clarity Urine pH Ur Specific [place] Urine Protein Urine Glucose (UA) Urine Ketones Urine Occult Blood Urine Nitrite Urine Bilirubin Urine Urobilinogen Ur Leukocyte Esterase Urine RBC Urine WBC Ur Squamous Epith Cells Urine Bacteria Hyaline Casts Urine Mucus Heparin-induced Plt Ab POC Glucose 10/25/19 10/25/19 10/25/19 06:00 06:00 10:35 WBC RBC Hgb Hct MCV MCH MCHC RDW Std Deviation RDW Coeff of [place] Plt Count Immature Gran % (Auto) Neut % (Auto) Lymph % (Auto) [place] % (Auto) Eos % (Auto) Baso % (Auto) Absolute Neuts (auto) Absolute Lymphs (auto) Nucleated RBC % Differential Comment Diff Path Review Toxic Vacuolation Platelet Estimate Plt Morphology Comment Sodium Potassium Chloride Carbon Dioxide Anion Gap BUN Creatinine Estim Creat Clear Calc Est GFR (MDRD) Af Amer Est GFR (MDRD) Non-Af BUN/Creatinine Ratio Glucose Calcium Phosphorus Magnesium Total Bilirubin AST ALT Alkaline Phosphatase B-Natriuretic Peptide > 5000.0 H Total Protein Albumin Globulin Albumin/Globulin Ratio Procalcitonin TSH 3.61 Urine Color Yellow Urine Clarity Clear Urine pH 6.0 Ur Specific [place] 1.010 Urine Protein 30 H Urine Glucose (UA) 250 H Urine Ketones Negative Urine Occult Blood 50 H Urine Nitrite Negative Urine Bilirubin Negative Urine Urobilinogen Normal Ur Leukocyte Esterase Negative Urine RBC 0 SEEN Urine WBC 0 SEEN Ur Squamous Epith Cells 0 SEEN Urine Bacteria RARE Hyaline Casts 0-5 SEEN Urine Mucus 0 SEEN Heparin-induced Plt Ab POC Glucose 10/25/19 10/25/19 10/26/19 12:19 17:13 00:06 WBC RBC Hgb Hct MCV MCH MCHC RDW Std Deviation RDW Coeff of [place] Plt Count Immature Gran % (Auto) Neut % (Auto) Lymph % (Auto) [place] % (Auto) Eos % (Auto) Baso % (Auto) Absolute Neuts (auto) Absolute Lymphs (auto) Nucleated RBC % Differential Comment Diff Path Review Toxic Vacuolation Platelet Estimate Plt Morphology Comment Sodium Potassium Chloride Carbon Dioxide Anion Gap BUN Creatinine Estim Creat Clear Calc Est GFR (MDRD) Af Amer Est GFR (MDRD) Non-Af BUN/Creatinine Ratio Glucose Calcium Phosphorus Magnesium Total Bilirubin AST ALT Alkaline Phosphatase B-Natriuretic Peptide Total Protein Albumin Globulin Albumin/Globulin Ratio Procalcitonin TSH Urine Color Urine Clarity Urine pH Ur Specific [place] Urine Protein Urine Glucose (UA) Urine Ketones Urine Occult Blood Urine Nitrite Urine Bilirubin Urine Urobilinogen Ur Leukocyte Esterase Urine RBC Urine WBC Ur Squamous Epith Cells Urine Bacteria Hyaline Casts Urine Mucus Heparin-induced Plt Ab POC Glucose 253 H 286 H 291 H 10/26/19 10/26/19 10/26/19 05:43 06:10 06:10 WBC 19.3 H RBC 4.01 L Hgb 12.7 L Hct 38.5 L MCV 96.0 H MCH 31.7 MCHC 33.0 RDW Std Deviation 47.0 H RDW Coeff of [place] 13.8 Plt Count 35 L* Immature Gran % (Auto) 0.700 Neut % (Auto) 93.6 H Lymph % (Auto) 0.7 L [place] % (Auto) 4.8 Eos % (Auto) 0.1 Baso % (Auto) 0.1 Absolute Neuts (auto) 18.1 H Absolute Lymphs (auto) 0.14 L Nucleated RBC % 0.2 Differential Comment SCANNED Diff Path Review May foll Toxic Vacuolation 2+ Platelet Estimate MKD DEC Plt Morphology Comment LARGE Sodium 143 Potassium 3.8 Chloride 115 H Carbon Dioxide 22.0 Anion Gap 6 BUN 26 H Creatinine 0.57 L Estim Creat Clear Calc 58.55 Est GFR (MDRD) Af Amer 183 Est GFR (MDRD) Non-Af 151 BUN/Creatinine Ratio 45.9 H Glucose 308 H Calcium 7.6 L Phosphorus Magnesium Total Bilirubin 2.50 H AST 67 H ALT 271 H Alkaline Phosphatase 122 H B-Natriuretic Peptide Total Protein 4.9 L Albumin 1.9 L Globulin 3.0 Albumin/Globulin Ratio 0.6 L Procalcitonin TSH Urine Color Urine Clarity Urine pH Ur Specific [place] Urine Protein Urine Glucose (UA) Urine Ketones Urine Occult Blood Urine Nitrite Urine Bilirubin Urine Urobilinogen Ur Leukocyte Esterase Urine RBC Urine WBC Ur Squamous Epith Cells Urine Bacteria Hyaline Casts Urine Mucus Heparin-induced Plt Ab POC Glucose 300 H Clinical Impression(s) from Imaging Studies Chest X-Ray 10/14/19 01:05 IMPRESSION: Bilateral lower lobe pneumonia. Electronically Signed: Temi Richards at 1:29 EDT Tel , Service support , Chest X-Ray 10/14/19 02:02 IMPRESSION: Diffuse ill-defined opacities are seen more prominent in the perihilar regions and lung bases suggesting bilateral pneumonia or pulmonary edema. Electronically Signed: Temi Richards at 4:03 EDT Tel , Service support , KUB X-Ray 10/14/19 02:40 IMPRESSION: An NG tube is seen with tip within the gastric lumen is in good position. Electronically Signed: Temi Richards at 2:58 EDT Tel , Service support , Chest CTA 10/14/19 14:27 IMPRESSION: No demonstrated pulmonary embolism or arterial dissection. Bilateral pleural effusions associated with dependent consolidation within the lower lobes. Atherosclerosis. Electronically Signed: Kaila Nicole MD at 15:58 EDT Tel , Service support , Chest X-Ray 10/16/19 20:45 IMPRESSION: Continued severe interstitial and airspace infiltrates most pronounced in the lower right lung. Pneumonia is possible in the right lower lung. Small effusions are seen. Electronically Signed: Thaddeus Milton MD at 22:04 EDT , Service support , Liver Ultrasound 10/18/19 09:51 IMPRESSION: Normal right upper quadrant ultrasound examination. Electronically Signed: Flaco Gale, at 15:17 EDT , Service support , Chest X-Ray 10/18/19 10:50 IMPRESSION: Stable examination. Electronically Signed: Flaco Gale, at 11:58 EDT , Service support , Chest X-Ray 10/18/19 14:15 IMPRESSION: Status post left thoracentesis. There is no evidence of pneumothorax. Electronically Signed: Flaco Gale, at 15:16 EDT , Service support , Thoracentesis Ultrasound 10/18/19 14:47 IMPRESSION: Ultrasound-guided left thoracentesis. Electronically Signed: Flaco Gale, at 14:59 EDT , Service support , Brain CT 10/19/19 08:23 IMPRESSION: Chronic involutional changes of the brain. Vascular clip is seen in the left [place] suggestion of prior clipping of an aneurysm. Electronically Signed: Flaco Gale, at 11:30 EDT , Service support , Thoracentesis Ultrasound 10/20/19 01:30 IMPRESSION: Successful ultrasound-guided left thoracentesis. Electronically Signed: Temi Richards, at 10:46 EDT Tel , Service support , Chest X-Ray 10/20/19 10:59 IMPRESSION: Markedly decreased right pleural effusion. Resolved left pleural effusion. There is no evidence of pneumothorax. Electronically Signed: Temi Richards, at 12:11 EDT Tel , Service support , Chest X-Ray 10/24/19 05:55 IMPRESSION: Stable examination. Electronically Signed: Flaco Gale, at 8:50 EDT , Service support , Abdomen/Pelvis CT 10/25/19 08:21 IMPRESSION: Right pleural effusion with scarring at the right lung base. Small amount of right perihepatic fluid and small amount of free intraperitoneal air. Infrarenal fusiform abdominal aortic aneurysm with a transverse dimension of 5.1 cm. Large amount of fecal material is seen in the rectosigmoid colon. Electronically Signed: Flaco Gale, at 13:07 EDT , Service support , Brain CT 10/25/19 09:08 IMPRESSION: Chronic involutional changes of the brain. Vascular clip is seen along the left side of the [place] in keeping with prior aneurysmal clipping. Electronically Signed: Flaco Gale, at 10:39 EDT , Service support , Chest CT 10/25/19 09:08 IMPRESSION: Bilateral pleural effusions right greater than left with bibasilar atelectasis and/or infiltrate. This is superimposed on chronic emphysematous changes with bullous formation and honeycombing at the right lung base. Electronically Signed: Flaco Gale, at 10:46 EDT , Service support , Current Medications Acetaminophen (Tylenol) 650 mg PO Q6H PRN PRN PRN Reason: Pain Score 1-10/Temp > 100.7 F Albuterol Sulfate (Ventolin Aerosols) 2.5 mg INHALATION Q2H PRN PRN PRN Reason: Dyspnea, wheezing Last Admin: 10/16/19 14:35 Dose: 2.5 mg Documented by: Albuterol/Ipratropium (Duoneb) 3 ml INHALATION Q4HWA.RT LAVELLE Last Admin: 10/25/19 19:12 Dose: 3 ml Documented by: Calamine/Phenol (Calmoseptine Ointment) 1 applic TOPICAL BID LAVELLE; Protocol Last Admin: 10/26/19 08:01 Dose: 1 applicatio Documented by: Dextrose (D50w Syringe) 0 gm IV X1 PRN; Protocol PRN Reason: Hypoglycemia Glucagon () 1 mg IM .X1 PRN PRN Reason: Hypoglycemia Guaifenesin (Robitussin) 10 ml PO Q4H PRN PRN PRN Reason: COUGH Hydralazine HCl (Apresoline Iv) 5 mg IV Q4H PRN PRN PRN Reason: BLOOD PRESSURE Last Admin: 10/24/19 16:23 Dose: 5 mg Documented by: Sodium Chloride () 250 mls @ 15 mls/hr IV .[id number] PRN PRN Reason: Saline Flush Last Infusion: 10/19/19 19:00 Dose: Infused Documented by: Sodium Chloride () 250 mls @ 15 mls/hr IV .[id number] PRN PRN Reason: Additional IVPB Infusion Dextrose () 1,000 mls @ 50 mls/hr IV .Q20H [facility] Last Infusion: 10/25/19 17:15 Dose: 50 mls/hr Documented by: Vancomycin IV Pharmacy to Dose (1 ea/ Sodium Chloride) 500 mls @ 250 mls/hr IV PRN PRN; Protocol PRN Reason: Rx to Dose Levofloxacin (Levaquin Iv) 750 mg in 150 mls @ 100 mls/hr IV Q24 [facility] Last Infusion: 10/25/19 12:03 Dose: Infused Documented by: Metronidazole (Flagyl) 500 mg in 100 mls @ 100 mls/hr IV Q8 [facility] Last Infusion: 10/26/19 07:07 Dose: Infused Documented by: Vancomycin HCl () 500 mg in 100 mls @ 100 mls/hr IV Q12H [facility] Last Infusion: 10/26/19 01:10 Dose: Infused Documented by: Multivitamins 10 ml/ Chromium/Copper/Manganese/Seleni/Zn 1 ml/ Folic Acid 1 mg/ Amino Acids/Electrolytes 2,011.2 mls @ 84 mls/hr IV .[id number] [facility] Stop: 10/26/19 15:48 Last Admin: 10/25/19 15:39 Dose: 84 mls/hr Documented by: Pantoprazole Sodium 40 mg/ (Sodium Chloride) 110 mls @ 330 mls/hr IV Q12 [facility] Last Infusion: 10/25/19 21:32 Dose: Infused Documented by: Insulin Human Lispro (Humalog Kwikpen (Bkc)) 0 unit SC Q6 [facility]; Protocol Last Admin: 10/26/19 05:44 Dose: 6 units Documented by: Labetalol HCl (Trandate) 10 mg IV Q4H [facility] Last Admin: 10/26/19 07:58 Dose: 10 mg Documented by: Methylprednisolone (Solu-Medrol) 20 mg IV DAILY [facility] Morphine Sulfate () 2 mg IV Q2H PRN PRN PRN Reason: Pain Score 6-10/10 Last Admin: 10/26/19 00:22 Dose: 2 mg Documented by: Nitroglycerin (Nitrostat) 0.4 mg SUBLINGUAL Q5M PRN PRN Reason: CARDIAC/CHEST PAIN Senna/Docusate Sodium (Senokot-S, Ami-Colace) 2 tablet PO BID PRN PRN PRN Reason: Constipation Sodium Chloride () 10 - 40 ml IV UD PRN PRN Reason: SALINE FLUSH Last Admin: 10/26/19 07:58 Dose: 10 ml Documented by: Medical Necessity - Tobacco Use Smoking Status: Former smoker Tobacco Use: Non-smoker Assessment/Plan All Active Problems (Last Reviewed 07/15/18 @ 16:45 by April Hyatt) Thrombocytopenia (Acute) Severe sepsis (Acute) Acute on chronic respiratory failure with hypoxia (Acute) COPD exacerbation (Acute) Bilateral pneumonia (Acute) Suspected 2019 novel coronavirus infection (Acute) Pneumonia of both lower lobes (Acute) Respiratory failure (Acute) Bronchitis (Acute) URI (upper respiratory infection) (Acute) Sinusitis, acute maxillary (Acute) RECOMMENDATIONS: 1. Continue to wean supplemental oxygen to maintain saturations at or above 90%. 2. Start IV Lasix 40 mg twice daily. 3. Discontinue IV steroids. 4. Encourage incentive spirometer use and mobilize patient as tolerated. 5. Continue antimicrobials per ID recommendations. IMPRESSIONS: 1. Acute hypoxemic respiratory failure Likely secondary to COPD with exacerbation precipitated by bilateral lower lobe pneumonia. COVID testing was negative. The patient improved with supportive measures including invasive mechanical ventilatory support, antimicrobials, bronchodilators and steroids. He was able to be extubated on the morning of October 14. His oxygen will be weaned to maintain saturations at or above 90%. Encourage incentive spirometer use and mobilize patient as tolerated. CT chest obtained this morning did reveal evidence of bilateral pleural effusions. I do suspect that the patient's bilateral pleural effusions are likely related to decompensated heart failure in the setting of hypervolemia and depressed ejection fraction noted on his last echocardiogram. Orders for scheduled IV Lasix have been placed. 2. Encephalopathy Unclear precipitating etiology. CT head was negative. Concern for new underlying infectious process that may be contributing to the patient's encephalopathic state. 3. Coronary artery disease status post CABG Continue outpatient cardiac medication regimen. 4. Chronic alcohol dependency/chronic pain syndrome/anxiety/depression/hypertension/hyperlipidemia Complicates care, management, recovery and prognosis. Continue home medications as indicated. This note was generated with [employer] dictation software. It may contain incorrect words, spelling, and punctuation that were not noted in checking the note before signing. Inpatient E&M: [id number] [facility]
[2019-10-26] MEDS: Furosemide 20 MG/2 ML VIAL 40 MG IV ×2 (09:16→18:03)
[2019-10-26] MEDS: levoFLOXacin IV 750 MG/150 ML BAG 100 MG IV (09:51)
--- NOTE | 2019-10-26 10:26 | ONC.PN.INPT ---
- Problem List (1) Thrombocytopenia Status: Acute Subjective Date of Service:: 10/26/19 Thrombocytopenia Mr. Ned Awad is a 68-year-old gentleman with a past medical history significant for COPD, CAD s/p CABG, Diabetes mellitus type II, hypertension, anxiety and depression. He was in his usual state of health until 10/14/2019 when he presented to [facility] emergency department via squad with complaints of shortness of breath x2 days, quickly worsening, fevers at home per patient self-report and cough accompanied by headache, nausea vomiting. Found to be tachycardic and in respiratory failure. Chest x-ray revealed bilateral lobe pneumonia, suspected COVID-19 infection. Patient was started on Rocephin, azithromycin and subsequently admitted to the ICU for severe sepsis secondary to pneumonia and respiratory failure. Patient was transitioned out of ICU to PCU on 10/16/2019. Experiencing decrease mental status, acute delirium. Respiratory viral panel was negative. Strep and urine Legionella antigens were negative. Blood cultures negative to date. COVID-19 negative. CTA chest negative for PE. 10/18/2019?abrupt, severe increase in ALT AST and T bili. Transaminitis thought adverse effect to antimicrobial therapy and was changed. Although transaminitis has improved, bilirubin now remains greater than 3. According to chart patient has a history of EtOH use. Hematology consulted for thrombocytopenia 10/23/19, platelets < 50,000. Coags repeated, LDH and HIT antibody requested. Upon entering the room patient is laying supine in bed, in no apparent distress. Past Medical History: Chronic Problems CAD (coronary artery disease) (Chronic) PAD (peripheral artery disease) (Chronic) HTN (hypertension) (Chronic) HLD (hyperlipidemia) (Chronic) Diabetes mellitus, type II (Chronic) Heavy alcohol consumption (Chronic) Former tobacco use (Chronic) Past Medical History - Most Recent Inpatient Visit Past Medical History Start: 10/14/19 04:30 Text: Status: Complete Freq: ONCE Protocol: Document 10/14/19 04:30 ARN (Rec: 10/14/19 05:46 ARN [id number]) BMI Required to complete PMH What is Patient's BMI 21.6 Past Medical History Unable History Recalled Yes: pt intubated and sedated Query Text:Pt Unable/Family Not Present family unavaliable to finish. Neurologic Medical History Hx Seizures No Cardiac Medical History VTE Present on Admission No Hx Hypertension Yes Hx Chest Pain/Angina Yes Hx Heart Attack Yes: had a couple a few years ago Hx Cardiac Surgery/Stents/Etc. Yes: CABG Hx Pacemaker/AICD No Respiratory Medical History Hx COPD Yes Hx Emphysema No Hx Smoking Yes Smoking Status Former smoker Tobacco Use Non-smoker Hx Smoking Cessation Date 10/14/19 Hx Tobacco Use in last 12 months No Hx Sleep Apnea No Do you snore loudly (louder than talking No or can be heard through closed doors)? Do you often feel tired/ fatigued/ No sleepy during daytime? Has anyone observed you stop breathing No during sleep? STOP Results Negative Genitourinary Medical History Indwelling Catheter in Place on Arrival/ No Admission Musculoskeletal History Hx Arthritis Yes: c-spine Hematologic Medical History Patient unable to answer at this time ( Yes ie. confused, unresponsive etc...) Other Medical History Wound/Pressure Injury Present on Arrival No /Admission Query Text:If yes, chart assessment in Shift/Clinical Findings Central Line/PICC/VAD Present on Arrival No /Admission Risk for Readmission Number of Risk Factors 2 At Risk for Readmission Patient is Not at Risk Patient is eligible for Call Back N Past Medical History (Last Reviewed 07/15/18 @ 16:45 by April Hyatt) Anemia (Acute) Back pain (Acute) Brain aneurysm (Acute) COPD (chronic obstructive pulmonary disease) (Acute) Chest pain (Acute) Difficulty balancing (Acute) Heart disease (Acute) Limb weakness (Acute) Renal artery bypass graft pseudoaneurysm (Acute) SOB (shortness of breath) (Acute) HTN (hypertension) (Chronic) Past Surgical History (Last Reviewed 07/15/18 @ 16:45 by April Hyatt) H/O carotid endarterectomy (Acute) H/O cataract extraction (Acute) H/O heart bypass surgery (Acute) Maternal Family History: Heart Disease, Hypertension Paternal Family History: Heart Disease, Hypertension - Social History Lives: Spouse/ Significant Other Smoking Status: Former smoker Tobacco Use: Non-smoker Alcohol: Heavy - Patient notes at least 2 beers or 2 glasses of wine each night. Drugs: None Review of Systems Unable to obtain accurate/complete ROS d/t: Patient disoriented and not able to answer questions Vital Signs Temperature 97.5 F L 10/26/19 07:57 Temperature Source Oral 10/26/19 07:57 Pulse Rate 87 10/26/19 07:57 Pulse Strength Weak (1+) 10/26/19 08:00 Respiratory Rate 18 10/26/19 07:57 Respiratory Effort Non-Labored 10/26/19 08:00 Respiratory Depth Normal 10/26/19 08:00 Respiratory Pattern Normal 10/26/19 08:00 Blood Pressure 149/92 H 10/26/19 07:57 Blood Pressure Mean 111 10/26/19 07:57 Blood Pressure Source Monitor 10/26/19 07:57 Blood Pressure Position Semi-Fowlers 10/26/19 07:57 Blood Pressure Location Left Arm 10/26/19 07:57 Pulse Ox 95 10/26/19 09:27 Oxygen Delivery Method Nasal Cannula 10/26/19 09:27 Oxygen Flow Rate (L/min) 2 10/26/19 09:27 Fraction of Inspired Oxygen (FIO2) 35 10/23/19 11:11 - Physical Exam General: Alert, No apparent distress, Disoriented, - - oreinted to person only HEENT: Atraumatic, Normocephalic Oropharynx:: Dry mucosa. Negative for: Ulcerated lesions Neck:: Supple, Trachea midline. Negative for: JVD, bilateral Cardiac:: Regular rate, Regular rhythm, Normal S1, Normal S2. Negative for: Murmur Lungs: Diminished. Negative for: Increased respiratory effort Abdomen:: Bowel sounds x 4, Soft, Non-tender, Non-distended Extremities:: Cyanosis - feet bilat, R>L, Edema - right pedal edema Skin:: Petechiae - primarily upper extremities and RLE, Ecchymosis - BUE, generalized in various stages of healing. Negative for: Lesions, Rash Lymphatics:: Negative for: Cervical lymphadenopathy, Supraclavicular lymphadenopathy, Axillary lymphadenopathy Laboratory Data: Microbiology 10/25/19 10:35 Urine Culture - Preliminary Urine, Catheterized Culture exhibits no growth. Laboratory Tests 10/26/19 10/26/19 10/26/19 Range/Units 06:10 06:10 05:43 WBC 19.3 H (4.4-11.0) K/mm3 RBC 4.01 L (4.6-6.2) M/mm3 Hgb 12.7 L (13.0-16.5) g/dL Hct 38.5 L (40-54) % MCV 96.0 H (80-94) fL MCH 31.7 (27.0-32.0) pg MCHC 33.0 (32-36) g/dL RDW Std Deviation 47.0 H (35.1-43.9) fl RDW Coeff of [place] 13.8 (11.6-14.6) % Plt Count 35 L* (150-450) K/mm3 Immature Gran % (Auto) 0.700 (0.0-0.9) % Neut % (Auto) 93.6 H (47-70) % Lymph % (Auto) 0.7 L (19-41) % [place] % (Auto) 4.8 (0-10) % Eos % (Auto) 0.1 (0-5) % Baso % (Auto) 0.1 (0-1) % Absolute Neuts (auto) 18.1 H (2.0-7.7) X10^3/uL Absolute Lymphs (auto) 0.14 L (0.83-4.51) X10^3/uL Nucleated RBC % 0.2 (0-5) % Differential Comment SCANNED Diff Path Review May foll Toxic Vacuolation 2+ Platelet Estimate MKD DEC (ADEQ) Plt Morphology Comment LARGE Sodium 143 (136-145) mmol/L Potassium 3.8 (3.5-5.1) mmol/L Chloride 115 H (98-107) mmol/L Carbon Dioxide 22.0 (21.0-32.0) mmol/L Anion Gap 6 (5-15) BUN 26 H (7-18) mg/dL Creatinine 0.57 L (0.70-1.30) mg/dL Estim Creat Clear Calc 58.55 ml/min Est GFR (MDRD) Af Amer 183 (>60) mL/min Est GFR (MDRD) Non-Af 151 (>60) mL/min BUN/Creatinine Ratio 45.9 H (10-20) RATIO Glucose 308 H (74-106) mg/dL Calcium 7.6 L (8.5-10.1) mg/dL Total Bilirubin 2.50 H (0.20-1.00) mg/dL AST 67 H (15-37) U/L ALT 271 H (16-61) U/L Alkaline Phosphatase 122 H (45-117) U/L B-Natriuretic Peptide (0-100) pg/mL Total Protein 4.9 L (6.4-8.2) g/dL Albumin 1.9 L (3.2-5.0) g/dL Globulin 3.0 (2.2-4.2) g/dL Albumin/Globulin Ratio 0.6 L (0.9-2.4) RATIO TSH (0.358-3.74) uIU/mL Urine Color (Yellow) Urine Clarity (Clear) Urine pH (5.0 - 8.0) Ur Specific [place] (1.002-1.030) Urine Protein (Negative) mg/dl Urine Glucose (UA) (Normal) mg/dl Urine Ketones (Negative) mg/dl Urine Occult Blood (Negative) /ul Urine Nitrite (Negative) Urine Bilirubin (Negative) mg/dL Urine Urobilinogen (Normal) mg/dl Ur Leukocyte Esterase (Negative) /ul Urine RBC (0-5) /hpf Urine WBC (0-5) /hpf Ur Squamous Epith Cells (0-5) /hpf Urine Bacteria (None Seen) /hpf Hyaline Casts (0-5) /lpf Urine Mucus (<or=2+) /hpf Heparin-induced Plt Ab (0.000-0.400) OD POC Glucose 300 H (70-110) mg/dL 10/26/19 10/25/19 10/25/19 Range/Units 00:06 17:13 12:19 WBC (4.4-11.0) K/mm3 RBC (4.6-6.2) M/mm3 Hgb (13.0-16.5) g/dL Hct (40-54) % MCV (80-94) fL MCH (27.0-32.0) pg MCHC (32-36) g/dL RDW Std Deviation (35.1-43.9) fl RDW Coeff of [place] (11.6-14.6) % Plt Count (150-450) K/mm3 Immature Gran % (Auto) (0.0-0.9) % Neut % (Auto) (47-70) % Lymph % (Auto) (19-41) % [place] % (Auto) (0-10) % Eos % (Auto) (0-5) % Baso % (Auto) (0-1) % Absolute Neuts (auto) (2.0-7.7) X10^3/uL Absolute Lymphs (auto) (0.83-4.51) X10^3/uL Nucleated RBC % (0-5) % Differential Comment Diff Path Review Toxic Vacuolation Platelet Estimate (ADEQ) Plt Morphology Comment Sodium (136-145) mmol/L Potassium (3.5-5.1) mmol/L Chloride (98-107) mmol/L Carbon Dioxide (21.0-32.0) mmol/L Anion Gap (5-15) BUN (7-18) mg/dL Creatinine (0.70-1.30) mg/dL Estim Creat Clear Calc ml/min Est GFR (MDRD) Af Amer (>60) mL/min Est GFR (MDRD) Non-Af (>60) mL/min BUN/Creatinine Ratio (10-20) RATIO Glucose (74-106) mg/dL Calcium (8.5-10.1) mg/dL Total Bilirubin (0.20-1.00) mg/dL AST (15-37) U/L ALT (16-61) U/L Alkaline Phosphatase (45-117) U/L B-Natriuretic Peptide (0-100) pg/mL Total Protein (6.4-8.2) g/dL Albumin (3.2-5.0) g/dL Globulin (2.2-4.2) g/dL Albumin/Globulin Ratio (0.9-2.4) RATIO TSH (0.358-3.74) uIU/mL Urine Color (Yellow) Urine Clarity (Clear) Urine pH (5.0 - 8.0) Ur Specific [place] (1.002-1.030) Urine Protein (Negative) mg/dl Urine Glucose (UA) (Normal) mg/dl Urine Ketones (Negative) mg/dl Urine Occult Blood (Negative) /ul Urine Nitrite (Negative) Urine Bilirubin (Negative) mg/dL Urine Urobilinogen (Normal) mg/dl Ur Leukocyte Esterase (Negative) /ul Urine RBC (0-5) /hpf Urine WBC (0-5) /hpf Ur Squamous Epith Cells (0-5) /hpf Urine Bacteria (None Seen) /hpf Hyaline Casts (0-5) /lpf Urine Mucus (<or=2+) /hpf Heparin-induced Plt Ab (0.000-0.400) OD POC Glucose 291 H 286 H 253 H (70-110) mg/dL 10/25/19 10/25/19 10/25/19 Range/Units 10:35 06:00 06:00 WBC (4.4-11.0) K/mm3 RBC (4.6-6.2) M/mm3 Hgb (13.0-16.5) g/dL Hct (40-54) % MCV (80-94) fL MCH (27.0-32.0) pg MCHC (32-36) g/dL RDW Std Deviation (35.1-43.9) fl RDW Coeff of [place] (11.6-14.6) % Plt Count (150-450) K/mm3 Immature Gran % (Auto) (0.0-0.9) % Neut % (Auto) (47-70) % Lymph % (Auto) (19-41) % [place] % (Auto) (0-10) % Eos % (Auto) (0-5) % Baso % (Auto) (0-1) % Absolute Neuts (auto) (2.0-7.7) X10^3/uL Absolute Lymphs (auto) (0.83-4.51) X10^3/uL Nucleated RBC % (0-5) % Differential Comment Diff Path Review Toxic Vacuolation Platelet Estimate (ADEQ) Plt Morphology Comment Sodium (136-145) mmol/L Potassium (3.5-5.1) mmol/L Chloride (98-107) mmol/L Carbon Dioxide (21.0-32.0) mmol/L Anion Gap (5-15) BUN (7-18) mg/dL Creatinine (0.70-1.30) mg/dL Estim Creat Clear Calc ml/min Est GFR (MDRD) Af Amer (>60) mL/min Est GFR (MDRD) Non-Af (>60) mL/min BUN/Creatinine Ratio (10-20) RATIO Glucose (74-106) mg/dL Calcium (8.5-10.1) mg/dL Total Bilirubin (0.20-1.00) mg/dL AST (15-37) U/L ALT (16-61) U/L Alkaline Phosphatase (45-117) U/L B-Natriuretic Peptide > 5000.0 H (0-100) pg/mL Total Protein (6.4-8.2) g/dL Albumin (3.2-5.0) g/dL Globulin (2.2-4.2) g/dL Albumin/Globulin Ratio (0.9-2.4) RATIO TSH 3.61 (0.358-3.74) uIU/mL Urine Color Yellow (Yellow) Urine Clarity Clear (Clear) Urine pH 6.0 (5.0 - 8.0) Ur Specific [place] 1.010 (1.002-1.030) Urine Protein 30 H (Negative) mg/dl Urine Glucose (UA) 250 H (Normal) mg/dl Urine Ketones Negative (Negative) mg/dl Urine Occult Blood 50 H (Negative) /ul Urine Nitrite Negative (Negative) Urine Bilirubin Negative (Negative) mg/dL Urine Urobilinogen Normal (Normal) mg/dl Ur Leukocyte Esterase Negative (Negative) /ul Urine RBC 0 SEEN (0-5) /hpf Urine WBC 0 SEEN (0-5) /hpf Ur Squamous Epith Cells 0 SEEN (0-5) /hpf Urine Bacteria RARE (None Seen) /hpf Hyaline Casts 0-5 SEEN (0-5) /lpf Urine Mucus 0 SEEN (<or=2+) /hpf Heparin-induced Plt Ab (0.000-0.400) OD POC Glucose (70-110) mg/dL 10/25/19 10/24/19 10/24/19 Range/Units 06:00 06:28 06:28 WBC (4.4-11.0) K/mm3 RBC (4.6-6.2) M/mm3 Hgb (13.0-16.5) g/dL Hct (40-54) % MCV (80-94) fL MCH (27.0-32.0) pg MCHC (32-36) g/dL RDW Std Deviation (35.1-43.9) fl RDW Coeff of [place] (11.6-14.6) % Plt Count (150-450) K/mm3 Immature Gran % (Auto) (0.0-0.9) % Neut % (Auto) (47-70) % Lymph % (Auto) (19-41) % [place] % (Auto) (0-10) % Eos % (Auto) (0-5) % Baso % (Auto) (0-1) % Absolute Neuts (auto) (2.0-7.7) X10^3/uL Absolute Lymphs (auto) (0.83-4.51) X10^3/uL Nucleated RBC % (0-5) % Differential Comment Diff Path Review Reviewed Reviewed Toxic Vacuolation Platelet Estimate (ADEQ) Plt Morphology Comment Sodium (136-145) mmol/L Potassium (3.5-5.1) mmol/L Chloride (98-107) mmol/L Carbon Dioxide (21.0-32.0) mmol/L Anion Gap (5-15) BUN (7-18) mg/dL Creatinine (0.70-1.30) mg/dL Estim Creat Clear Calc ml/min Est GFR (MDRD) Af Amer (>60) mL/min Est GFR (MDRD) Non-Af (>60) mL/min BUN/Creatinine Ratio (10-20) RATIO Glucose (74-106) mg/dL Calcium (8.5-10.1) mg/dL Total Bilirubin (0.20-1.00) mg/dL AST (15-37) U/L ALT (16-61) U/L Alkaline Phosphatase (45-117) U/L B-Natriuretic Peptide (0-100) pg/mL Total Protein (6.4-8.2) g/dL Albumin (3.2-5.0) g/dL Globulin (2.2-4.2) g/dL Albumin/Globulin Ratio (0.9-2.4) RATIO TSH (0.358-3.74) uIU/mL Urine Color (Yellow) Urine Clarity (Clear) Urine pH (5.0 - 8.0) Ur Specific [place] (1.002-1.030) Urine Protein (Negative) mg/dl Urine Glucose (UA) (Normal) mg/dl Urine Ketones (Negative) mg/dl Urine Occult Blood (Negative) /ul Urine Nitrite (Negative) Urine Bilirubin (Negative) mg/dL Urine Urobilinogen (Normal) mg/dl Ur Leukocyte Esterase (Negative) /ul Urine RBC (0-5) /hpf Urine WBC (0-5) /hpf Ur Squamous Epith Cells (0-5) /hpf Urine Bacteria (None Seen) /hpf Hyaline Casts (0-5) /lpf Urine Mucus (<or=2+) /hpf Heparin-induced Plt Ab 0.084 (0.000-0.400) OD POC Glucose (70-110) mg/dL Diagnostic Data: Diagnostic Data KUB X-Ray 10/14/19 02:40 IMPRESSION: An NG tube is seen with tip within the gastric lumen is in good position. Electronically Signed: Temi Richards, at 2:58 EDT Tel , Service support , Chest CTA 10/14/19 14:27 IMPRESSION: No demonstrated pulmonary embolism or arterial dissection. Bilateral pleural effusions associated with dependent consolidation within the lower lobes. Atherosclerosis. Electronically Signed: Kaila Nicole MD at 15:58 EDT Tel , Service support , Liver Ultrasound 10/18/19 09:51 IMPRESSION: Normal right upper quadrant ultrasound examination. Electronically Signed: Flaco Gale, at 15:17 EDT , Service support , Thoracentesis Ultrasound 10/20/19 01:30 IMPRESSION: Successful ultrasound-guided left thoracentesis. Electronically Signed: Temi Richards, at 10:46 EDT Tel , Service support , Chest X-Ray 10/24/19 05:55 IMPRESSION: Stable examination. Electronically Signed: Flaco Gale, at 8:50 EDT , Service support , Abdomen/Pelvis CT 10/25/19 08:21 IMPRESSION: Right pleural effusion with scarring at the right lung base. Small amount of right perihepatic fluid and small amount of free intraperitoneal air. Infrarenal fusiform abdominal aortic aneurysm with a transverse dimension of 5.1 cm. Large amount of fecal material is seen in the rectosigmoid colon. Electronically Signed: Flaco Gale, at 13:07 EDT , Service support , Brain CT 10/25/19 09:08 IMPRESSION: Chronic involutional changes of the brain. Vascular clip is seen along the left side of the [place] in keeping with prior aneurysmal clipping. Electronically Signed: Flaco Kempkatejames, at 10:39 EDT , Service support , Chest CT 10/25/19 09:08 IMPRESSION: Bilateral pleural effusions right greater than left with bibasilar atelectasis and/or infiltrate. This is superimposed on chronic emphysematous changes with bullous formation and honeycombing at the right lung base. Electronically Signed: Flaco Kempkatejames, at 10:46 EDT , Service support , Assessment and Plan 1. Thrombocytopenia?as evidenced by platelet count today of 35,000. Platelets on admission 166,000. Antibody resulted- no evidence to suggest HIT. Possible etiologies include liver dysfunction and acute sepsis. Transaminitis improving and total bili 2.5. Anti icteric. Lovenox on hold. Ecchymosis & petechia present, otherwise no active bleeding. RLE edema, mottling in both feet, however right foot > cyanotic. May consider vascular consult. Case discussed with Dr. Cornejo who was in agreement with aforementioned A/P, will be happy to provide further recommendations if clinical picture changes. Sammie Sierra, MSN, MEETING MANAGER, AOCNP Medications: Prescriptions This Visit Medication Instructions Recorded Cholecalciferol (Vitamin D3) 2,000 unit PO DAILY 10/14/19 [Vitamin D3] Cyclobenzaprine HCl 10 mg PO QHS PRN 10/14/19 Fexofenadine HCl 180 mg PO DAILY 10/14/19 Iron Carbonyl [Feosol] 45 mg PO DAILYCM 10/14/19 Minocycline HCl 1 tab PO DAILY 10/14/19 Rosuvastatin Calcium 5 mg PO DAILY 10/14/19 Medications Added to Medication List This Visit Category Date Time Status Furosemide [Lasix] Med 10/26/19 10:00 Active 40 mg IV BID@1000,1800 Primary Care Provider: GERSON LORENZANA Referring Provider:
--- NOTE | 2019-10-26 10:51 | PN.RENAL_ITS ---
Patient Problems: Active and Suspected Problems (Last Reviewed 07/15/18 @ 16:45 by April Hyatt) Severe sepsis (Acute) Acute on chronic respiratory failure with hypoxia (Acute) COPD exacerbation (Acute) Bilateral pneumonia (Acute) Suspected 2019 novel coronavirus infection (Acute) Pneumonia of both lower lobes (Acute) Respiratory failure (Acute) Subjective: more awake but still with expressive aphasia, unable to decifer his words. Unable to provide history - Physical Exam Vitals/I&O's: Vital Signs Temp Pulse Resp BP Pulse Ox 97.5 F L 87 18 149/92 H 95 10/26/19 07:57 10/26/19 07:57 10/26/19 07:57 10/26/19 07:57 10/26/19 09:27 Oxygen Flow Rate (L/min) [3] 4 Oxygen Flow Rate (L/min) [2] 4 Oxygen Flow Rate (L/min) [1 ( 4 Initial Baseline)] Oxygen Flow Rate (L/min) 2 Oxygen Delivery Method [3] Nasal Cannula Oxygen Delivery Method [2] Nasal Cannula Oxygen Delivery Method [1 ( Nasal Cannula Initial Baseline)] Oxygen Delivery Method Nasal Cannula Weight: 61.1 kg Body Mass Index (BMI) 21.2 Intake and Output for Last 24 Hours 10/24/19 10/25/19 10/26/19 23:59 23:59 23:59 Intake Total 1567.2 / 1567.2 4244.37 / 4244.37 352.75 / 352.75 Output Total 200 / 200 Balance 1567.2 / 1567.2 4044.37 / 4044.37 352.75 / 352.75 General: - - unable to assess, poor mentation Lungs: Rhonchi Cardiovascular: Irregular Rate Abdomen: Bowel Sounds Present, Soft, Non Tender, Non-Distended Extremities: Edema - trace pedal edema with decreased pedal pulses, Musculoskeletal: Muscle Wasting Microbiology Past 72 Hours 10/25/19 10:35 Urine, Catheterized Urine Culture - Preliminary Culture exhibits no growth. Laboratory Results 10/24/19 06:28: Heparin-induced Plt Ab 0.084 10/25/19 06:00: B-Natriuretic Peptide > 5000.0 H 10/25/19 06:00: TSH 3.61 10/25/19 10:35: Urine Color Yellow, Urine Clarity Clear, Urine pH 6.0, Ur Specific [place] 1.010, Urine Protein 30 H, Urine Glucose (UA) 250 H, Urine Ketones Negative, Urine Occult Blood 50 H, Urine Nitrite Negative, Urine Bilirubin Negative, Urine Urobilinogen Normal, Ur Leukocyte Esterase Negative, Urine RBC 0 SEEN, Urine WBC 0 SEEN, Ur Squamous Epith Cells 0 SEEN, Urine Bacteria RARE, Hyaline Casts 0-5 SEEN, Urine Mucus 0 SEEN 10/25/19 12:19: POC Glucose 253 H 10/25/19 17:13: POC Glucose 286 H 10/26/19 00:06: POC Glucose 291 H 10/26/19 05:43: POC Glucose 300 H 10/26/19 06:10: WBC 19.3 H, RBC 4.01 L, Hgb 12.7 L, Hct 38.5 L, MCV 96.0 H, MCH 31.7, MCHC 33.0, RDW Std Deviation 47.0 H, RDW Coeff of Xenia 13.8, Plt Count 35 L*, Immature Gran % (Auto) 0.700, Neut % (Auto) 93.6 H, Lymph % (Auto) 0.7 L, [place] % (Auto) 4.8, Eos % (Auto) 0.1, Baso % (Auto) 0.1, Absolute Neuts (auto) 18.1 H, Absolute Lymphs (auto) 0.14 L, Nucleated RBC % 0.2, Differential Comment SCANNED, Diff Path Review May foll, Toxic Vacuolation 2+, Platelet Estimate MKD DEC, Plt Morphology Comment LARGE 10/26/19 06:10: Sodium 143, Potassium 3.8, Chloride 115 H, Carbon Dioxide 22.0, Anion Gap 6, BUN 26 H, Creatinine 0.57 L, Estim Creat Clear Calc 58.55, Est GFR (MDRD) Af Amer 183, Est GFR (MDRD) Non-Af 151, BUN/Creatinine Ratio 45.9 H, Glucose 308 H, Calcium 7.6 L, Total Bilirubin 2.50 H, AST 67 H, ALT 271 H, Alkaline Phosphatase 122 H, Total Protein 4.9 L, Albumin 1.9 L, Globulin 3.0, Albumin/Globulin Ratio 0.6 L Current Medications Acetaminophen (Tylenol) 650 mg PO Q6H PRN PRN PRN Reason: Pain Score 1-10/Temp > 100.7 F Albuterol Sulfate (Ventolin Aerosols) 2.5 mg INHALATION Q2H PRN PRN PRN Reason: Dyspnea, wheezing Last Admin: 10/16/19 14:35 Dose: 2.5 mg Documented by: Albuterol/Ipratropium (Duoneb) 3 ml INHALATION Q4HWA.RT [facility] Last Admin: 10/26/19 10:48 Dose: Not Given Documented by: Calamine/Phenol (Calmoseptine Ointment) 1 applic TOPICAL BID [facility]; Protocol Last Admin: 10/26/19 08:01 Dose: 1 applicatio Documented by: Dextrose (D50w Syringe) 0 gm IV X1 PRN; Protocol PRN Reason: Hypoglycemia Furosemide (Lasix) 40 mg IV BID@1000,1800 [facility] Last Admin: 10/26/19 09:16 Dose: 40 mg Documented by: Glucagon () 1 mg IM .X1 PRN PRN Reason: Hypoglycemia Guaifenesin (Robitussin) 10 ml PO Q4H PRN PRN PRN Reason: COUGH Hydralazine HCl (Apresoline Iv) 5 mg IV Q4H PRN PRN PRN Reason: BLOOD PRESSURE Last Admin: 10/24/19 16:23 Dose: 5 mg Documented by: Sodium Chloride () 250 mls @ 15 mls/hr IV .[id number] PRN PRN Reason: Saline Flush Last Infusion: 10/26/19 09:51 Dose: 0 mls/hr Documented by: Sodium Chloride () 250 mls @ 15 mls/hr IV .[id number] PRN PRN Reason: Additional IVPB Infusion Dextrose () 1,000 mls @ 50 mls/hr IV .Q20H [facility] Last Infusion: 10/25/19 17:15 Dose: 50 mls/hr Documented by: Vancomycin IV Pharmacy to Dose (1 ea/ Sodium Chloride) 500 mls @ 250 mls/hr IV PRN PRN; Protocol PRN Reason: Rx to Dose Levofloxacin (Levaquin Iv) 750 mg in 150 mls @ 100 mls/hr IV Q24 [facility] Last Admin: 10/26/19 09:51 Dose: 100 mls/hr Documented by: Metronidazole (Flagyl) 500 mg in 100 mls @ 100 mls/hr IV Q8 [facility] Last Infusion: 10/26/19 07:07 Dose: Infused Documented by: Vancomycin HCl () 500 mg in 100 mls @ 100 mls/hr IV Q12H [facility] Last Infusion: 10/26/19 01:10 Dose: Infused Documented by: Multivitamins 10 ml/ Chromium/Copper/Manganese/Seleni/Zn 1 ml/ Folic Acid 1 mg/ Amino Acids/Electrolytes 2,011.2 mls @ 84 mls/hr IV .[id number] [facility] Stop: 10/26/19 15:48 Last Admin: 10/25/19 15:39 Dose: 84 mls/hr Documented by: Pantoprazole Sodium 40 mg/ (Sodium Chloride) 110 mls @ 330 mls/hr IV Q12 [facility] Last Infusion: 10/26/19 09:30 Dose: Infused Documented by: Insulin Human Lispro (Humalog Kwikpen (Bkc)) 0 unit SC Q6 [facility]; Protocol Last Admin: 10/26/19 05:44 Dose: 6 units Documented by: Labetalol HCl (Trandate) 10 mg IV Q4H [facility] Last Admin: 10/26/19 07:58 Dose: 10 mg Documented by: Morphine Sulfate () 2 mg IV Q2H PRN PRN PRN Reason: Pain Score 6-10/10 Last Admin: 10/26/19 00:22 Dose: 2 mg Documented by: Nitroglycerin (Nitrostat) 0.4 mg SUBLINGUAL Q5M PRN PRN Reason: CARDIAC/CHEST PAIN Senna/Docusate Sodium (Senokot-S, Ami-Colace) 2 tablet PO BID PRN PRN PRN Reason: Constipation Sodium Chloride () 10 - 40 ml IV UD PRN PRN Reason: SALINE FLUSH Last Admin: 10/26/19 09:16 Dose: 10 ml Documented by: Medical Necessity - Tobacco Use Smoking Status: Former smoker Tobacco Use: Non-smoker Assessment/Plan All Active Problems (Last Reviewed 07/15/18 @ 16:45 by April Hyatt) Thrombocytopenia (Acute) Severe sepsis (Acute) Acute on chronic respiratory failure with hypoxia (Acute) COPD exacerbation (Acute) Bilateral pneumonia (Acute) Suspected 2018 novel coronavirus infection (Acute) Pneumonia of both lower lobes (Acute) Respiratory failure (Acute) Bronchitis (Acute) URI (upper respiratory infection) (Acute) Sinusitis, acute maxillary (Acute) 1. Persistent hypernatremia due to poor access to water improved to 143 today with PPN, D5W. Started on lasix iv bid for bilateral pleural effusion. Continue to monitor sodium. Will stop D5W. May need thoracentesis if sodium level rises tomorrow while on lasix. 2. Sepsis syndrome with elevated liver enzymes, thrombocytopenia, leukocytosis. hematology following low platelet 3. Bilateral lobar pneumonia status post acute respiratory failure on iv antibx 4. Altered mental status persists, more responsive but still with expressive aphasia. 5. Cachexia, malnutrition [facility] primary service
[2019-10-26 11:23] LABS: Pathologist Review Reviewed
--- NOTE | 2019-10-26 11:45 | PN_ITS ---
<Jose Rangel - Last Filed: 10/26/19 11:45> Patient Problems: Active and Suspected Problems (Last Reviewed 07/15/18 @ 16:45 by April Hyatt) Severe sepsis (Acute) Acute on chronic respiratory failure with hypoxia (Acute) COPD exacerbation (Acute) Bilateral pneumonia (Acute) Suspected 2018 novel coronavirus infection (Acute) Pneumonia of both lower lobes (Acute) Respiratory failure (Acute) Reason for Visit: confusion Subjective: Pt disimpacted last night and per records one bm after this. This AM he was able to talk to me briefly though he is hard to understand. He asked me how are you and when I asked the same of him he responded im hanging in there. After this his speech was too garbled to understand. He does not appear to be in acute pain or respiratory distress. Vitals/I&O's: Vital Signs Temp Pulse Resp BP Pulse Ox 97.5 F L 87 18 149/92 H 95 10/26/19 07:57 10/26/19 07:57 10/26/19 07:57 10/26/19 07:57 10/26/19 09:27 Oxygen Flow Rate (L/min) [3] 4 Oxygen Flow Rate (L/min) [2] 4 Oxygen Flow Rate (L/min) [1 ( 4 Initial Baseline)] Oxygen Flow Rate (L/min) 2 Oxygen Delivery Method [3] Nasal Cannula Oxygen Delivery Method [2] Nasal Cannula Oxygen Delivery Method [1 ( Nasal Cannula Initial Baseline)] Oxygen Delivery Method Nasal Cannula Weight: 134 lb 11.239 oz Body Mass Index (BMI) 21.2 Intake and Output for Last 24 Hours 10/24/19 10/25/19 10/26/19 23:59 23:59 23:59 Intake Total 1567.2 / 1567.2 4244.37 / 4244.37 352.75 / 352.75 Output Total 200 / 200 Balance 1567.2 / 1567.2 4044.37 / 4044.37 352.75 / 352.75 General: Alert, Cooperative HEENT: Atraumatic, PERRLA, EOMI, Normocephalic Neck: Supple, No JVD, Negative Carotid Bruits Lungs: Clear to auscultation, Diminished Cardiovascular: Regular rate, No murmurs Abdomen: Bowel Sounds Present, Soft, Non Tender Extremities: No edema, Capillary Refill Less than 3 Seconds Skin: No rashes, No breakdown Musculoskeletal: No Tenderness to Palpation of Joints or Extremities Neurological: Cranial nerves II-XII grossly intact Psych/Mental Status: Anxious Microbiology Past 72 Hours 10/25/19 10:35 Urine, Catheterized Urine Culture - Preliminary Culture exhibits no growth. Laboratory Results 10/24/19 06:28: Heparin-induced Plt Ab 0.084 10/25/19 06:00: B-Natriuretic Peptide > 5000.0 H 10/25/19 06:00: TSH 3.61 10/25/19 10:35: Urine Color Yellow, Urine Clarity Clear, Urine pH 6.0, Ur Specific [place] 1.010, Urine Protein 30 H, Urine Glucose (UA) 250 H, Urine Ketones Negative, Urine Occult Blood 50 H, Urine Nitrite Negative, Urine Bilirubin Negative, Urine Urobilinogen Normal, Ur Leukocyte Esterase Negative, Urine RBC 0 SEEN, Urine WBC 0 SEEN, Ur Squamous Epith Cells 0 SEEN, Urine Bacteria RARE, Hyaline Casts 0-5 SEEN, Urine Mucus 0 SEEN 10/25/19 12:19: POC Glucose 253 H 10/25/19 17:13: POC Glucose 286 H 10/26/19 00:06: POC Glucose 291 H 10/26/19 05:43: POC Glucose 300 H 10/26/19 06:10: WBC 19.3 H, RBC 4.01 L, Hgb 12.7 L, Hct 38.5 L, MCV 96.0 H, MCH 31.7, MCHC 33.0, RDW Std Deviation 47.0 H, RDW Coeff of [place] 13.8, Plt Count 35 L*, Immature Gran % (Auto) 0.700, Neut % (Auto) 93.6 H, Lymph % (Auto) 0.7 L, [place] % (Auto) 4.8, Eos % (Auto) 0.1, Baso % (Auto) 0.1, Absolute Neuts (auto) 18.1 H, Absolute Lymphs (auto) 0.14 L, Nucleated RBC % 0.2, Differential Comment SCANNED, Diff Path Review Reviewed, Toxic Vacuolation 2+, Platelet Estimate MKD DEC, Plt Morphology Comment LARGE 10/26/19 06:10: Sodium 143, Potassium 3.8, Chloride 115 H, Carbon Dioxide 22.0, Anion Gap 6, BUN 26 H, Creatinine 0.57 L, Estim Creat Clear Calc 58.55, Est GFR (MDRD) Af Amer 183, Est GFR (MDRD) Non-Af 151, BUN/Creatinine Ratio 45.9 H, Glucose 308 H, Calcium 7.6 L, Total Bilirubin 2.50 H, AST 67 H, ALT 271 H, Alkaline Phosphatase 122 H, Total Protein 4.9 L, Albumin 1.9 L, Globulin 3.0, Albumin/Globulin Ratio 0.6 L Current Medications Acetaminophen (Tylenol) 650 mg PO Q6H PRN PRN PRN Reason: Pain Score 1-10/Temp > 100.7 F Albuterol Sulfate (Ventolin Aerosols) 2.5 mg INHALATION Q2H PRN PRN PRN Reason: Dyspnea, wheezing Last Admin: 10/16/19 14:35 Dose: 2.5 mg Documented by: Albuterol/Ipratropium (Duoneb) 3 ml INHALATION Q4HWA.RT [facility] Last Admin: 10/26/19 10:48 Dose: Not Given Documented by: Calamine/Phenol (Calmoseptine Ointment) 1 applic TOPICAL BID [facility]; Protocol Last Admin: 10/26/19 08:01 Dose: 1 applicatio Documented by: Dextrose (D50w Syringe) 0 gm IV X1 PRN; Protocol PRN Reason: Hypoglycemia Furosemide (Lasix) 40 mg IV BID@1000,1800 [facility] Last Admin: 10/26/19 09:16 Dose: 40 mg Documented by: Glucagon () 1 mg IM .X1 PRN PRN Reason: Hypoglycemia Guaifenesin (Robitussin) 10 ml PO Q4H PRN PRN PRN Reason: COUGH Hydralazine HCl (Apresoline Iv) 5 mg IV Q4H PRN PRN PRN Reason: BLOOD PRESSURE Last Admin: 10/24/19 16:23 Dose: 5 mg Documented by: Sodium Chloride () 250 mls @ 15 mls/hr IV .[id number] PRN PRN Reason: Saline Flush Last Infusion: 10/26/19 09:51 Dose: 0 mls/hr Documented by: Sodium Chloride () 250 mls @ 15 mls/hr IV .[id number] PRN PRN Reason: Additional IVPB Infusion Vancomycin IV Pharmacy to Dose (1 ea/ Sodium Chloride) 500 mls @ 250 mls/hr IV PRN PRN; Protocol PRN Reason: Rx to Dose Levofloxacin (Levaquin Iv) 750 mg in 150 mls @ 100 mls/hr IV Q24 [facility] Last Admin: 10/26/19 09:51 Dose: 100 mls/hr Documented by: Metronidazole (Flagyl) 500 mg in 100 mls @ 100 mls/hr IV Q8 [facility] Last Infusion: 10/26/19 07:07 Dose: Infused Documented by: Vancomycin HCl () 500 mg in 100 mls @ 100 mls/hr IV Q12H [facility] Last Infusion: 10/26/19 01:10 Dose: Infused Documented by: Multivitamins 10 ml/ Chromium/Copper/Manganese/Seleni/Zn 1 ml/ Folic Acid 1 mg/ Amino Acids/Electrolytes 2,011.2 mls @ 84 mls/hr IV .[id number] [facility] Stop: 10/26/19 15:48 Last Admin: 10/25/19 15:39 Dose: 84 mls/hr Documented by: Pantoprazole Sodium 40 mg/ (Sodium Chloride) 110 mls @ 330 mls/hr IV Q12 [facility] Last Infusion: 10/26/19 09:30 Dose: Infused Documented by: Insulin Human Lispro (Humalog Kwikpen (Bkc)) 0 unit SC Q6 [facility]; Protocol Last Admin: 10/26/19 05:44 Dose: 6 units Documented by: Labetalol HCl (Trandate) 10 mg IV Q4H [facility] Last Admin: 10/26/19 07:58 Dose: 10 mg Documented by: Morphine Sulfate () 2 mg IV Q2H PRN PRN PRN Reason: Pain Score 6-10/10 Last Admin: 10/26/19 00:22 Dose: 2 mg Documented by: Nitroglycerin (Nitrostat) 0.4 mg SUBLINGUAL Q5M PRN PRN Reason: CARDIAC/CHEST PAIN Senna/Docusate Sodium (Senokot-S, Ami-Colace) 2 tablet PO BID PRN PRN PRN Reason: Constipation Sodium Chloride () 10 - 40 ml IV UD PRN PRN Reason: SALINE FLUSH Last Admin: 10/26/19 09:16 Dose: 10 ml Documented by: STROKE Vital Signs/Narrative: Vital Signs Temp Pulse Resp BP Pulse Ox 10/26/19 09:27 95 10/26/19 07:57 97.5 F L 87 18 149/92 H 98 10/26/19 07:50 90 Medical Necessity - Tobacco Use Smoking Status: Former smoker Tobacco Use: Non-smoker Assessment/Plan All Active Problems (Last Reviewed 07/15/18 @ 16:45 by April Hyatt) Thrombocytopenia (Acute) Severe sepsis (Acute) Acute on chronic respiratory failure with hypoxia (Acute) COPD exacerbation (Acute) Bilateral pneumonia (Acute) Suspected 2019 novel coronavirus infection (Acute) Pneumonia of both lower lobes (Acute) Respiratory failure (Acute) Bronchitis (Acute) URI (upper respiratory infection) (Acute) Sinusitis, acute maxillary (Acute) 1. Acute metabolic encephalopathy - unclear etiology. he is intermittently communicative.Ammonia neg. CT neg. MRI unable to be obtained 2/2 vascular clips. -Repeat CT brain negative for acute process. -I suspect this is related to an underlying infectious process. 2. Acute hypoxic resp failure, severe sepsis, 2/2 streptococcal not strep pneumo, pneumonia, possibly abdominal infection - ID following. Covid neg. Extubated 10/15/19. Bipap as needed. -procalcitonin was elevated -No fever. -WBCs improved significantly overnight -LFTs/bili improving -Repeat UA negative. -continue to wean steroids via IV. -CT chest with notable pleural effusions, emphysematous changes, honeycombing -CT abd had possible perforation and stool impaction. he also has a 5.1 cm aortic aneurysm. -no abd pain/tenderness today. -consider repeat thoracentesis, however platelets are low and he is not having worsening of respiratory symptoms. -Underlying systolic CHF/pulmonary HTN (suspect 2/2 underlying emphysema/fibrosis) : EF 35% by recent echo, [id number]. multiple areas of wall abnormalities. -Abx changed per ID to vanco, flagyl, levaquin yesterday, 3. Thromboyctopenia - JOSE pending, hem/onc following. Mild decrease. Off lovenox. ? abx side effect, ? side effect of pepcid (stopped) 4. Hypernatremia - resolved. Nephro following. D5W stopped. Check AM lytes as he is on 5. Abn LFTs possibly due to robert, trend. Prior US liver normal. Abdomen is now tender. CT pending. 6. Dysphagia 2/2 #1- continue TPN. Speech to re eval now that he seems more alert. 7. HTN - continue prn lebatolol, hydralazine 8. BL pleural effusions - defer re-tapping as his resp status is stable and platelets low. Pulm started lasix. Trend I/O. This is also complicated by his poor serum protein / albumin. 9. DMt2 with hyperglycemia - increased SSI, pt may need a small amount of insulin added to TPN. Will defer for now. 10. Abd aortic aneurysm - 5.1 cm per imaging. pt currently not appropriate for any intervention. DVT ppx: SCDs DC planning: Mentation improved slightly. Even if mentation returns to baseline the Pt will need SNF as he is severely deconditioned. This patient was seen by Jose Rangel PA-C under the supervision of Dr. Klein. <Kevin Klein - Last Filed: 10/26/19 12:50> Vitals/I&O's: Vital Signs Temp Pulse Resp BP Pulse Ox 97.6 F L 94 20 H 134/84 H 96 10/26/19 11:47 10/26/19 11:47 10/26/19 11:47 10/26/19 11:47 10/26/19 11:47 Oxygen Flow Rate (L/min) [3] 4 Oxygen Flow Rate (L/min) [2] 4 Oxygen Flow Rate (L/min) [1 ( 4 Initial Baseline)] Oxygen Flow Rate (L/min) 2 Oxygen Delivery Method [3] Nasal Cannula Oxygen Delivery Method [2] Nasal Cannula Oxygen Delivery Method [1 ( Nasal Cannula Initial Baseline)] Oxygen Delivery Method Nasal Cannula Weight: 61.1 kg Body Mass Index (BMI) 21.2 Intake and Output for Last 24 Hours 10/24/19 10/25/19 10/26/19 23:59 23:59 23:59 Intake Total 1567.2 / 1567.2 4244.37 / 4244.37 1444.75 / 1444.75 Output Total 200 / 200 Balance 1567.2 / 1567.2 4044.37 / 4044.37 1444.75 / 1444.75 Microbiology Past 72 Hours 10/25/19 10:35 Urine, Catheterized Urine Culture - Preliminary Culture exhibits no growth. Laboratory Results 10/24/19 06:28: Heparin-induced Plt Ab 0.084 10/25/19 06:00: B-Natriuretic Peptide > 5000.0 H 10/25/19 17:13: POC Glucose 286 H 10/26/19 00:06: POC Glucose 291 H 10/26/19 05:43: POC Glucose 300 H 10/26/19 06:10: WBC 19.3 H, RBC 4.01 L, Hgb 12.7 L, Hct 38.5 L, MCV 96.0 H, MCH 31.7, MCHC 33.0, RDW Std Deviation 47.0 H, RDW Coeff of [place] 13.8, Plt Count 35 L*, Immature Gran % (Auto) 0.700, Neut % (Auto) 93.6 H, Lymph % (Auto) 0.7 L, [place] % (Auto) 4.8, Eos % (Auto) 0.1, Baso % (Auto) 0.1, Absolute Neuts (auto) 18.1 H, Absolute Lymphs (auto) 0.14 L, Nucleated RBC % 0.2, Differential Comment SCANNED, Diff Path Review Reviewed, Toxic Vacuolation 2+, Platelet Estimate MKD DEC, Plt Morphology Comment LARGE 10/26/19 06:10: Sodium 143, Potassium 3.8, Chloride 115 H, Carbon Dioxide 22.0, Anion Gap 6, BUN 26 H, Creatinine 0.57 L, Estim Creat Clear Calc 58.55, Est GFR (MDRD) Af Amer 183, Est GFR (MDRD) Non-Af 151, BUN/Creatinine Ratio 45.9 H, Glucose 308 H, Calcium 7.6 L, Total Bilirubin 2.50 H, AST 67 H, ALT 271 H, Alkaline Phosphatase 122 H, Total Protein 4.9 L, Albumin 1.9 L, Globulin 3.0, Albumin/Globulin Ratio 0.6 L 10/26/19 11:42: POC Glucose 266 H Current Medications Acetaminophen (Tylenol) 650 mg PO Q6H PRN PRN PRN Reason: Pain Score 1-10/Temp > 100.7 F Albuterol Sulfate (Ventolin Aerosols) 2.5 mg INHALATION Q2H PRN PRN PRN Reason: Dyspnea, wheezing Last Admin: 10/16/19 14:35 Dose: 2.5 mg Documented by: Albuterol/Ipratropium (Duoneb) 3 ml INHALATION Q4HWA.RT [facility] Last Admin: 10/26/19 10:48 Dose: Not Given Documented by: Calamine/Phenol (Calmoseptine Ointment) 1 applic TOPICAL BID [facility]; Protocol Last Admin: 10/26/19 08:01 Dose: 1 applicatio Documented by: Dextrose (D50w Syringe) 0 gm IV X1 PRN; Protocol PRN Reason: Hypoglycemia Furosemide (Lasix) 40 mg IV BID@1000,1800 [facility] Last Admin: 10/26/19 09:16 Dose: 40 mg Documented by: Glucagon () 1 mg IM .X1 PRN PRN Reason: Hypoglycemia Guaifenesin (Robitussin) 10 ml PO Q4H PRN PRN PRN Reason: COUGH Hydralazine HCl (Apresoline Iv) 5 mg IV Q4H PRN PRN PRN Reason: BLOOD PRESSURE Last Admin: 10/24/19 16:23 Dose: 5 mg Documented by: Sodium Chloride () 250 mls @ 15 mls/hr IV .[id number] PRN PRN Reason: Saline Flush Last Infusion: 10/26/19 11:48 Dose: 0 mls/hr Documented by: Sodium Chloride () 250 mls @ 15 mls/hr IV .[id number] PRN PRN Reason: Additional IVPB Infusion Vancomycin IV Pharmacy to Dose (1 ea/ Sodium Chloride) 500 mls @ 250 mls/hr IV PRN PRN; Protocol PRN Reason: Rx to Dose Levofloxacin (Levaquin Iv) 750 mg in 150 mls @ 100 mls/hr IV Q24 [facility] Last Infusion: 10/26/19 11:30 Dose: Infused Documented by: Metronidazole (Flagyl) 500 mg in 100 mls @ 100 mls/hr IV Q8 [facility] Last Infusion: 10/26/19 07:07 Dose: Infused Documented by: Vancomycin HCl () 500 mg in 100 mls @ 100 mls/hr IV Q12H [facility] Last Admin: 10/26/19 11:48 Dose: 100 mls/hr Documented by: Multivitamins 10 ml/ Chromium/Copper/Manganese/Seleni/Zn 1 ml/ Folic Acid 1 mg/ Amino Acids/Electrolytes 2,011.2 mls @ 84 mls/hr IV .[id number] [facility] Stop: 10/26/19 15:48 Last Admin: 10/25/19 15:39 Dose: 84 mls/hr Documented by: Pantoprazole Sodium 40 mg/ (Sodium Chloride) 110 mls @ 330 mls/hr IV Q12 [facility] Last Infusion: 10/26/19 09:30 Dose: Infused Documented by: Multivitamins 10 ml/ Chromium/Copper/Manganese/Seleni/Zn 1 ml/ Folic Acid 1 mg/ Amino Acids/Electrolytes 2,011 mls @ 42 mls/hr IV .Q24H [facility] Stop: 10/27/19 15:47 Fat Emulsion Intravenous (Intralipid 20%) 500 mls @ 42 mls/hr IV .[id number] [facility] Stop: 10/27/19 03:54 Insulin Human Lispro (Humalog Kwikpen (Bkc)) 0 unit SC Q6 [facility]; Protocol Last Admin: 10/26/19 11:49 Dose: 6 units Documented by: Labetalol HCl (Trandate) 10 mg IV Q4H [facility] Last Admin: 10/26/19 11:48 Dose: 10 mg Documented by: Morphine Sulfate () 2 mg IV Q2H PRN PRN PRN Reason: Pain Score 6-10/10 Last Admin: 10/26/19 00:22 Dose: 2 mg Documented by: Nitroglycerin (Nitrostat) 0.4 mg SUBLINGUAL Q5M PRN PRN Reason: CARDIAC/CHEST PAIN Senna/Docusate Sodium (Senokot-S, Ami-Colace) 2 tablet PO BID PRN PRN PRN Reason: Constipation Sodium Chloride () 10 - 40 ml IV UD PRN PRN Reason: SALINE FLUSH Last Admin: 10/26/19 11:48 Dose: 10 ml Documented by: STROKE Vital Signs/Narrative: Vital Signs Temp Pulse Resp BP Pulse Ox 10/26/19 11:47 97.6 F L 94 20 H 134/84 H 96 10/26/19 09:27 95 Assessment/Plan This patient was seen in conjunction with Jose Rangel PA-C . I have independently interviewed and examined the patient and reviewed pertinent historical, laboratory, and other data. Please refer to Jose Rangel PA-C note for details of this patient's presentation, findings, and recommendations. I margot joycee reviewed Jose Rangel PA-C note and concur with documented findings. In brief, patient 79-year-old gentleman admitted with progressive shortness of breath. Patient has had a protracted stay. -10/25/2019 patient more lethargic than usual ?10/26/2019 patient seen much more awake and cooperative compared to the day prior. Appears to be improving clinically. Physical Examination: GENERAL: Awake and cooperative HEENT: Atraumatic; EYES; Anicteric, Normal Conjunctiva NECK; supple, normal thyroid, RESPIRATORY: Diminished to auscultation CARDIOVASCULAR: Regular S1 S2, Assessment: 1. Acute metabolic encephalopathy 2. Acute hypoxic respiratory failure 3. Streptococcal pneumonia 4. Thrombocytopenia 5. Hypernatremia 6. Acute transaminitis 7. Essential hypertension 8. Dysphagia 9. Bilateral pleural effusions right greater than left with bibasilar atelectasis and/or infiltrate. 10. Infrarenal fusiform abdominal aortic aneurysm with a transverse dimension of 5.1 cm. 11. Obstipation with Large amount of fecal material is seen in the rectosigmoid colon Recommendations: 1. Options for management were reviewed Inpatient E&M: [id number] [facility] Hosp L2
[2019-10-26 12:06] LABS: Bedside Glucose 266 mg/dL (70-110)
--- NOTE | 2019-10-26 12:47 | NT.THERAPY_ITS ---
Nutrition Therapy Report - History Nutrition Services has been consulted to:: Manage parenteral nutrition Current diet / nutrition support order:: 2L 20% dextrose/5%AA solution at 84mL/hour to provide 1760 calories, 100 g protein - Anthropometric Measurements Height:: 5 ft 6 in Weight:: 61.1 kg Body Mass Index (BMI):: 21.7 - Relevant Labs Relevant Labs:: WBC 19.3 K/mm3 (4.4-11.0) H 10/26/19 06:10 RBC 4.01 M/mm3 (4.6-6.2) L 10/26/19 06:10 Hgb 12.7 g/dL (13.0-16.5) L 10/26/19 06:10 Hct 38.5 % (40-54) L 10/26/19 06:10 MCV 96.0 fL (80-94) H 10/26/19 06:10 MCH 32.1 pg (27.0-32.0) H 10/23/19 06:45 RDW Std Deviation 47.0 fl (35.1-43.9) H 10/26/19 06:10 Plt Count 35 K/mm3 (150-450) L* 10/26/19 06:10 MPV 14.2 fl (6.2-12.0) H 10/21/19 04:40 Immature Gran % (Auto) 1.500 % (0.0-0.9) H 10/25/19 06:00 Neut % (Auto) 93.6 % (47-70) H 10/26/19 06:10 Lymph % (Auto) 0.7 % (19-41) L 10/26/19 06:10 Absolute Neuts (auto) 18.1 X10^3/uL (2.0-7.7) H 10/26/19 06:10 Absolute Lymphs (auto) 0.14 X10^3/uL (0.83-4.51) L 10/26/19 06:10 PT 19.3 SECONDS (11.7-14.9) H 10/24/19 06:28 APTT 24.0 Seconds (24.1-36.2) L 10/19/19 08:15 Sodium 148 mmol/L (136-145) H 10/24/19 06:28 Chloride 115 mmol/L (98-107) H 10/26/19 06:10 Carbon Dioxide 20.0 mmol/L (21.0-32.0) L 10/20/19 14:05 BUN 26 mg/dL (7-18) H 10/26/19 06:10 Creatinine 0.57 mg/dL (0.70-1.30) L 10/26/19 06:10 BUN/Creatinine Ratio 45.9 RATIO (10-20) H 10/26/19 06:10 Glucose 308 mg/dL (74-106) H 10/26/19 06:10 Lactic Acid 2.3 mmol/L (0.4-1.9) H* 10/14/19 03:28 Calcium 7.6 mg/dL (8.5-10.1) L 10/26/19 06:10 Phosphorus 2.0 mg/dL (2.5-4.9) L 10/25/19 06:00 Magnesium 2.7 mg/dL (1.6-2.6) H 10/23/19 06:45 Total Bilirubin 2.50 mg/dL (0.20-1.00) H 10/26/19 06:10 Direct Bilirubin 1.92 mg/dL (0.00-0.30) H 10/22/19 06:00 AST 67 U/L (15-37) H 10/26/19 06:10 ALT 271 U/L (16-61) H 10/26/19 06:10 Alkaline Phosphatase 122 U/L (45-117) H 10/26/19 06:10 Ammonia < 10.0 umol/L (11-32) L 10/19/19 08:15 Lactate Dehydrogenase 811 U/L (87-241) H 10/24/19 06:28 C-React Prot Ext Range 10.00 mg/L (0.0-3.0) H 10/14/19 00:38 B-Natriuretic Peptide > 5000.0 pg/mL (0-100) H 10/25/19 06:00 Total Protein 4.9 g/dL (6.4-8.2) L 10/26/19 06:10 Albumin 1.9 g/dL (3.2-5.0) L 10/26/19 06:10 Albumin/Globulin Ratio 0.6 RATIO (0.9-2.4) L 10/26/19 06:10 HDL Cholesterol 16 mg/dL (40-) L 10/23/19 06:45 Procalcitonin 0.11 ng/mL (0.00-0.09) H 10/25/19 06:00 - Assessment Food / Nutrition-Related History:: Evaluated by general surgery- will not proceed w/ ex. lap at this time. Remains NPO. MEDICAL CASE MANAGER following. Pt more alert today. TPN w/o lipids yesterday-- 2L 5%AA/20% dextrose solution to provide 1760 calories, 100 g AA. Wt increase of 1.5kg since last review. Started on IV lasix today. Per Dr. Lynne documentation, pt is +19L for this admission. Fluid status is concerning. LFTs improving. Elevated blood glucose, on IV steroid. Last lipids 10/24/19. - Nutrition Intervention Nutrition Prescription:: Estimated nutritional needs: 8742-0129 calories/day, 70-80 g protein/day - Food / Nutrient Delivery Interventions Summary of nutrition intervention:: Consulted by provider to renew TPN today. Per order, no insulin or famotidine in TPN today. Nutrition support ordered as / adjusted to:: 1L 5%AA/20% dextrose solution w/ electrolytes and 500mL 20% lipid solution to provide 1880 calories, 200 g dextrose, and 50 g protein (meets 100% of calorie needs, ~70% of estimated protein needs, 0.8g protein/kg). Per provider order, no insulin or famotidine added to TPN today. Nutrition education provided?: No - MNT Monitoring Further MNT monitoring and evaluation required?: Yes MNT Follow-up in:: 1-2 days - will continue to manage nutrient details of TPN if renewed by provider
--- NOTE | 2019-10-26 13:43 | PCM.PN.SRG ---
Patient Problems: Active and Suspected Problems (Last Reviewed 07/15/18 @ 16:45 by April Hyatt) Severe sepsis (Acute) Acute on chronic respiratory failure with hypoxia (Acute) COPD exacerbation (Acute) Bilateral pneumonia (Acute) Suspected 2019 novel coronavirus infection (Acute) Pneumonia of both lower lobes (Acute) Respiratory failure (Acute) Subjective: Pt is a little more lucid today, still denying abd pain, + BM after disimpaction yesterday, WBC 13.5 from 25 & platelets 35 - Physical Exam Vitals/I&O's: Vital Signs Temp Pulse Resp BP Pulse Ox 97.6 F L 68 18 124/63 H 95 10/26/19 16:00 10/26/19 16:00 10/26/19 16:00 10/26/19 16:00 10/26/19 16:00 Oxygen Flow Rate (L/min) [3] 4 Oxygen Flow Rate (L/min) [2] 4 Oxygen Flow Rate (L/min) [1 ( 4 Initial Baseline)] Oxygen Flow Rate (L/min) 2 Oxygen Delivery Method [3] Nasal Cannula Oxygen Delivery Method [2] Nasal Cannula Oxygen Delivery Method [1 ( Nasal Cannula Initial Baseline)] Oxygen Delivery Method Nasal Cannula Weight: 134 lb 11.239 oz Body Mass Index (BMI) 21.7 Intake and Output for Last 24 Hours 10/24/19 10/25/19 10/26/19 23:59 23:59 23:59 Intake Total 1567.2 / 1567.2 4244.37 / 4244.37 3655.95 / 3655.95 Output Total 200 / 200 Balance 1567.2 / 1567.2 4044.37 / 4044.37 3655.95 / 3655.95 General: Disoriented Abdomen: Soft, Non Tender, Non-Distended Microbiology Past 72 Hours 10/25/19 10:35 Urine, Catheterized Urine Culture - Preliminary Culture exhibits no growth. Laboratory Results 10/24/19 06:28: Heparin-induced Plt Ab 0.084 10/25/19 17:13: POC Glucose 286 H 10/26/19 00:06: POC Glucose 291 H 10/26/19 05:43: POC Glucose 300 H 10/26/19 06:10: WBC 19.3 H, RBC 4.01 L, Hgb 12.7 L, Hct 38.5 L, MCV 96.0 H, MCH 31.7, MCHC 33.0, RDW Std Deviation 47.0 H, RDW Coeff of Xenia 13.8, Plt Count 35 L*, Immature Gran % (Auto) 0.700, Neut % (Auto) 93.6 H, Lymph % (Auto) 0.7 L, [place] % (Auto) 4.8, Eos % (Auto) 0.1, Baso % (Auto) 0.1, Absolute Neuts (auto) 18.1 H, Absolute Lymphs (auto) 0.14 L, Nucleated RBC % 0.2, Differential Comment SCANNED, Diff Path Review Reviewed, Toxic Vacuolation 2+, Platelet Estimate MKD DEC, Plt Morphology Comment LARGE 10/26/19 06:10: Sodium 143, Potassium 3.8, Chloride 115 H, Carbon Dioxide 22.0, Anion Gap 6, BUN 26 H, Creatinine 0.57 L, Estim Creat Clear Calc 58.55, Est GFR (MDRD) Af Amer 183, Est GFR (MDRD) Non-Af 151, BUN/Creatinine Ratio 45.9 H, Glucose 308 H, Calcium 7.6 L, Total Bilirubin 2.50 H, AST 67 H, ALT 271 H, Alkaline Phosphatase 122 H, Total Protein 4.9 L, Albumin 1.9 L, Globulin 3.0, Albumin/Globulin Ratio 0.6 L 10/26/19 11:42: POC Glucose 266 H Current Medications Acetaminophen (Tylenol) 650 mg PO Q6H PRN PRN PRN Reason: Pain Score 1-10/Temp > 100.7 F Albuterol Sulfate (Ventolin Aerosols) 2.5 mg INHALATION Q2H PRN PRN PRN Reason: Dyspnea, wheezing Last Admin: 10/16/19 14:35 Dose: 2.5 mg Documented by: Albuterol/Ipratropium (Duoneb) 3 ml INHALATION Q4HWA.RT [facility] Last Admin: 10/26/19 14:21 Dose: Not Given Documented by: Calamine/Phenol (Calmoseptine Ointment) 1 applic TOPICAL BID [facility]; Protocol Last Admin: 10/26/19 08:01 Dose: 1 applicatio Documented by: Dextrose (D50w Syringe) 0 gm IV X1 PRN; Protocol PRN Reason: Hypoglycemia Furosemide (Lasix) 40 mg IV BID@1000,1800 [facility] Last Admin: 10/26/19 09:16 Dose: 40 mg Documented by: Glucagon () 1 mg IM .X1 PRN PRN Reason: Hypoglycemia Guaifenesin (Robitussin) 10 ml PO Q4H PRN PRN PRN Reason: COUGH Hydralazine HCl (Apresoline Iv) 5 mg IV Q4H PRN PRN PRN Reason: BLOOD PRESSURE Last Admin: 10/24/19 16:23 Dose: 5 mg Documented by: Sodium Chloride () 250 mls @ 15 mls/hr IV .[id number] PRN PRN Reason: Saline Flush Last Infusion: 10/26/19 11:48 Dose: 0 mls/hr Documented by: Sodium Chloride () 250 mls @ 15 mls/hr IV .[id number] PRN PRN Reason: Additional IVPB Infusion Vancomycin IV Pharmacy to Dose (1 ea/ Sodium Chloride) 500 mls @ 250 mls/hr IV PRN PRN; Protocol PRN Reason: Rx to Dose Levofloxacin (Levaquin Iv) 750 mg in 150 mls @ 100 mls/hr IV Q24 [facility] Last Infusion: 10/26/19 11:30 Dose: Infused Documented by: Metronidazole (Flagyl) 500 mg in 100 mls @ 100 mls/hr IV Q8 [facility] Last Infusion: 10/26/19 14:13 Dose: Infused Documented by: Vancomycin HCl () 500 mg in 100 mls @ 100 mls/hr IV Q12H [facility] Last Infusion: 10/26/19 13:04 Dose: Infused Documented by: Pantoprazole Sodium 40 mg/ (Sodium Chloride) 110 mls @ 330 mls/hr IV Q12 [facility] Last Infusion: 10/26/19 09:30 Dose: Infused Documented by: Multivitamins 10 ml/ Chromium/Copper/Manganese/Seleni/Zn 1 ml/ Folic Acid 1 mg/ Amino Acids/Electrolytes 2,011 mls @ 42 mls/hr IV .Q24H [facility] Stop: 10/27/19 15:47 Last Admin: 10/26/19 16:02 Dose: 42 mls/hr Documented by: Fat Emulsion Intravenous (Intralipid 20%) 500 mls @ 42 mls/hr IV .[id number] [facility] Stop: 10/27/19 03:54 Last Admin: 10/26/19 16:02 Dose: 42 mls/hr Documented by: Insulin Human Lispro (Humalog Kwikpen (Bkc)) 0 unit SC Q6 [facility]; Protocol Last Admin: 10/26/19 11:49 Dose: 6 units Documented by: Labetalol HCl (Trandate) 10 mg IV Q4H [facility] Last Admin: 10/26/19 16:20 Dose: 10 mg Documented by: Morphine Sulfate () 2 mg IV Q2H PRN PRN PRN Reason: Pain Score 6-10/10 Last Admin: 10/26/19 00:22 Dose: 2 mg Documented by: Nitroglycerin (Nitrostat) 0.4 mg SUBLINGUAL Q5M PRN PRN Reason: CARDIAC/CHEST PAIN Senna/Docusate Sodium (Senokot-S, Ami-Colace) 2 tablet PO BID PRN PRN PRN Reason: Constipation Sodium Chloride () 10 - 40 ml IV UD PRN PRN Reason: SALINE FLUSH Last Admin: 10/26/19 16:20 Dose: 10 ml Documented by: Medical Necessity - Tobacco Use Smoking Status: Former smoker Tobacco Use: Non-smoker Assessment/Plan All Active Problems (Last Reviewed 07/15/18 @ 16:45 by April Hyatt) Thrombocytopenia (Acute) Severe sepsis (Acute) Acute on chronic respiratory failure with hypoxia (Acute) COPD exacerbation (Acute) Bilateral pneumonia (Acute) Suspected 2018 novel coronavirus infection (Acute) Pneumonia of both lower lobes (Acute) Respiratory failure (Acute) Bronchitis (Acute) URI (upper respiratory infection) (Acute) Sinusitis, acute maxillary (Acute) 69-year-old male with pneumonia admitted since 10/14 initially was in the ICU currently on 2 L nasal cannula but has been encephalopathic since admission, CT abdomen pelvis small mild pneumoperitoneum and small amount of free fluid in the abdomen, 1. Pt is still denying abdominal pain and is a little more alert today. Platelets 35--no plans for surgery here. is encouraged by the improvement and has no plans to have patient transferred currently, also with no abd pain I can't guarantee that pt would get surgery if transferred as well. Pt WBC is 13.5 from 25--IV abx per ID. Adelina Bran M.D. Pager: [phone] [facility] [address] [place] [address], [facility], [address] [place] [address] Office: [phone]
[2019-10-26] MEDS: Fat Emulsions 20% 500 ML IV (16:02)
--- NOTE | 2019-10-26 17:17 | CPS ---
Patient does not tolerate treatments. Pulls the mask off and if you try to put it back on him, he gets combative.
[2019-10-26 18:11] LABS: Bedside Glucose 149 mg/dL (70-110)
--- NOTE | 2019-10-26 19:25 | PN.ID_ITS ---
Patient Problems: Active and Suspected Problems (Last Reviewed 07/15/18 @ 16:45 by April Hyatt) Severe sepsis (Acute) Acute on chronic respiratory failure with hypoxia (Acute) COPD exacerbation (Acute) Bilateral pneumonia (Acute) Suspected 2019 novel coronavirus infection (Acute) Pneumonia of both lower lobes (Acute) Respiratory failure (Acute) Subjective: reports he is calmer today. No fever. - Physical Exam Vitals/I&O's: Vital Signs Temp Pulse Resp BP Pulse Ox 97.6 F L 68 18 124/63 H 95 10/26/19 16:00 10/26/19 16:00 10/26/19 16:00 10/26/19 16:00 10/26/19 16:00 Oxygen Flow Rate (L/min) [3] 4 Oxygen Flow Rate (L/min) [2] 4 Oxygen Flow Rate (L/min) [1 ( 4 Initial Baseline)] Oxygen Flow Rate (L/min) 2 Oxygen Delivery Method [3] Nasal Cannula Oxygen Delivery Method [2] Nasal Cannula Oxygen Delivery Method [1 ( Nasal Cannula Initial Baseline)] Oxygen Delivery Method Nasal Cannula Weight: 61.1 kg Body Mass Index (BMI) 21.7 Intake and Output for Last 24 Hours 10/24/19 10/25/19 10/26/19 23:59 23:59 23:59 Intake Total 1567.2 / 1567.2 4244.37 / 4244.37 3655.95 / 3655.95 Output Total 200 / 200 Balance 1567.2 / 1567.2 4044.37 / 4044.37 3655.95 / 3655.95 General: No apparent distress, Lethargic, Non-Cooperative Lungs: Clear to auscultation, Normal air movement Cardiovascular: Regular rate, Regular Rhythm Abdomen: Soft, Non Tender, Non-Distended Skin: No rashes Microbiology Past 72 Hours 10/25/19 10:35 Urine, Catheterized Urine Culture - Preliminary Culture exhibits no growth. Laboratory Results 10/25/19 17:13: POC Glucose 286 H 10/26/19 00:06: POC Glucose 291 H 10/26/19 05:43: POC Glucose 300 H 10/26/19 06:10: WBC 19.3 H, RBC 4.01 L, Hgb 12.7 L, Hct 38.5 L, MCV 96.0 H, MCH 31.7, MCHC 33.0, RDW Std Deviation 47.0 H, RDW Coeff of X[place] 13.8, Plt Count 35 L*, Immature Gran % (Auto) 0.700, Neut % (Auto) 93.6 H, Lymph % (Auto) 0.7 L, [place] % (Auto) 4.8, Eos % (Auto) 0.1, Baso % (Auto) 0.1, Absolute Neuts (auto) 18.1 H, Absolute Lymphs (auto) 0.14 L, Nucleated RBC % 0.2, Differential Comment SCANNED, Diff Path Review Reviewed, Toxic Vacuolation 2+, Platelet Estimate MKD DEC, Plt Morphology Comment LARGE 10/26/19 06:10: Sodium 143, Potassium 3.8, Chloride 115 H, Carbon Dioxide 22.0, Anion Gap 6, BUN 26 H, Creatinine 0.57 L, Estim Creat Clear Calc 58.55, Est GFR (MDRD) Af Amer 183, Est GFR (MDRD) Non-Af 151, BUN/Creatinine Ratio 45.9 H, Glucose 308 H, Calcium 7.6 L, Total Bilirubin 2.50 H, AST 67 H, ALT 271 H, Alkaline Phosphatase 122 H, Total Protein 4.9 L, Albumin 1.9 L, Globulin 3.0, Albumin/Globulin Ratio 0.6 L 10/26/19 11:42: POC Glucose 266 H 10/26/19 18:02: POC Glucose 149 H Current Medications Acetaminophen (Tylenol) 650 mg PO Q6H PRN PRN PRN Reason: Pain Score 1-10/Temp > 100.7 F Albuterol Sulfate (Ventolin Aerosols) 2.5 mg INHALATION Q2H PRN PRN PRN Reason: Dyspnea, wheezing Last Admin: 10/16/19 14:35 Dose: 2.5 mg Documented by: Albuterol/Ipratropium (Duoneb) 3 ml INHALATION Q4HWA.RT [facility] Last Admin: 10/26/19 14:21 Dose: Not Given Documented by: Calamine/Phenol (Calmoseptine Ointment) 1 applic TOPICAL BID [facility]; Protocol Last Admin: 10/26/19 08:01 Dose: 1 applicatio Documented by: Dextrose (D50w Syringe) 0 gm IV X1 PRN; Protocol PRN Reason: Hypoglycemia Furosemide (Lasix) 40 mg IV BID@1000,1800 [facility] Last Admin: 10/26/19 18:03 Dose: 40 mg Documented by: Glucagon () 1 mg IM .X1 PRN PRN Reason: Hypoglycemia Guaifenesin (Robitussin) 10 ml PO Q4H PRN PRN PRN Reason: COUGH Hydralazine HCl (Apresoline Iv) 5 mg IV Q4H PRN PRN PRN Reason: BLOOD PRESSURE Last Admin: 10/24/19 16:23 Dose: 5 mg Documented by: Sodium Chloride () 250 mls @ 15 mls/hr IV .[id number] PRN PRN Reason: Saline Flush Last Infusion: 10/26/19 11:48 Dose: 0 mls/hr Documented by: Sodium Chloride () 250 mls @ 15 mls/hr IV .[id number] PRN PRN Reason: Additional IVPB Infusion Vancomycin IV Pharmacy to Dose (1 ea/ Sodium Chloride) 500 mls @ 250 mls/hr IV PRN PRN; Protocol PRN Reason: Rx to Dose Levofloxacin (Levaquin Iv) 750 mg in 150 mls @ 100 mls/hr IV Q24 [facility] Last Infusion: 10/26/19 11:30 Dose: Infused Documented by: Metronidazole (Flagyl) 500 mg in 100 mls @ 100 mls/hr IV Q8 [facility] Last Infusion: 10/26/19 14:13 Dose: Infused Documented by: Vancomycin HCl () 500 mg in 100 mls @ 100 mls/hr IV Q12H [facility] Last Infusion: 10/26/19 13:04 Dose: Infused Documented by: Pantoprazole Sodium 40 mg/ (Sodium Chloride) 110 mls @ 330 mls/hr IV Q12 [facility] Last Infusion: 10/26/19 09:30 Dose: Infused Documented by: Multivitamins 10 ml/ Chromium/Copper/Manganese/Seleni/Zn 1 ml/ Folic Acid 1 mg/ Amino Acids/Electrolytes 2,011 mls @ 42 mls/hr IV .Q24H [facility] Stop: 10/27/19 15:47 Last Admin: 10/26/19 16:02 Dose: 42 mls/hr Documented by: Fat Emulsion Intravenous (Intralipid 20%) 500 mls @ 42 mls/hr IV .[id number] [facility] Stop: 10/27/19 03:54 Last Admin: 10/26/19 16:02 Dose: 42 mls/hr Documented by: Insulin Human Lispro (Humalog Kwikpen (Bkc)) 0 unit SC Q6 [facility]; Protocol Last Admin: 10/26/19 18:02 Dose: Not Given Documented by: Labetalol HCl (Trandate) 10 mg IV Q4H [facility] Last Admin: 10/26/19 16:20 Dose: 10 mg Documented by: Morphine Sulfate () 2 mg IV Q2H PRN PRN PRN Reason: Pain Score 6-10/10 Last Admin: 10/26/19 00:22 Dose: 2 mg Documented by: Nitroglycerin (Nitrostat) 0.4 mg SUBLINGUAL Q5M PRN PRN Reason: CARDIAC/CHEST PAIN Senna/Docusate Sodium (Senokot-S, Ami-Colace) 2 tablet PO BID PRN PRN PRN Reason: Constipation Sodium Chloride () 10 - 40 ml IV UD PRN PRN Reason: SALINE FLUSH Last Admin: 10/26/19 18:03 Dose: 10 ml Documented by: Medical Necessity - Tobacco Use Smoking Status: Former smoker Tobacco Use: Non-smoker Route of nutrition/ use of supplements: [] Nutritional Intake: [] IV Site: [] [place] Catheter: [] - Assessment/Plan Antibiotics: [] Assessment/Plan: [] Active and Suspected Problems (Last Reviewed 07/15/18 @ 16:45 by April Hyatt) Severe sepsis (Acute) Acute on chronic respiratory failure with hypoxia (Acute) COPD exacerbation (Acute) Bilateral pneumonia (Acute) Suspected 2018 novel coronavirus infection (Acute) Pneumonia of both lower lobes (Acute) Respiratory failure (Acute) Subjective fever at home, reported chest pain, hypoxia, cough. COVID neg. 10/24 changed cefepime to vanc/levaquin/flagyl. LFTs improving past few days. Wbc slightly better but plat continue to worsen. Large bilat effusions. Seen by Dr. Bran for free air in abd, large stool disimpacted. Will follow
[2019-10-26] MEDS: Ipratropium/Albuterol Sulfate 3 ML AMPUL.NEB INHALATION (19:43)
[2019-10-27] VITALS (13 sets, daily range): BP systolic 96–146; BP diastolic 45–73; PULSE 71–84; RESP 16–20; TEMP 36.4–37.1; O2SAT 95–99; BMI 21.7
[2019-10-27 00:59] LABS: Vancomycin, Trough Level 8.6 ug/mL (5.0-15.0)
[2019-10-27] MEDS: Vancomycin IV 500 MG/100 ML BAG 100 MG IV (01:00)
[2019-10-27] MEDS: Insulin Lispro 100 UNIT/ML INSULN.PEN SC ×4 (01:45→23:59)
[2019-10-27 01:56] LABS: Bedside Glucose 181 mg/dL (70-110)
--- NOTE | 2019-10-27 03:09 | PCM.RX.CS ---
Consult Pharmacy has been consulted to manage selected antiobiotic: Vancomycin Type of Consult: Follow-up Suspected Infection: Pneumonia Labs: Sodium 143 mmol/L (136-145) 10/26/19 06:10 Potassium 3.8 mmol/L (3.5-5.1) 10/26/19 06:10 Chloride 115 mmol/L (98-107) H 10/26/19 06:10 Carbon Dioxide 22.0 mmol/L (21.0-32.0) 10/26/19 06:10 Anion Gap 6 (5-15) 10/26/19 06:10 BUN 26 mg/dL (7-18) H 10/26/19 06:10 Creatinine 0.57 mg/dL (0.70-1.30) L 10/26/19 06:10 Est GFR (MDRD) Af Amer 183 mL/min (>60) 10/26/19 06:10 Est GFR (MDRD) Non-Af 151 mL/min (>60) 10/26/19 06:10 BUN/Creatinine Ratio 45.9 RATIO (10-20) H 10/26/19 06:10 Glucose 308 mg/dL (74-106) H 10/26/19 06:10 Vancomycin Trough 8.6 ug/mL (5.0-15.0) 10/26/19 23:35 Microbiology: Microbiology 10/25/19 10:35 Urine, Catheterized Urine Culture - Preliminary Culture exhibits no growth. 10/18/19 14:20 Fluid - Thoracentesis Fluid Gram Stain - Final 10/18/19 14:20 Fluid - Thoracentesis Fluid Body Fluid Culture - Final No growth aerobically. 10/18/19 14:20 Fluid - Thoracentesis Fluid Anaerobic Culture - Final No growth in 5 days. 10/14/19 00:38 Blood Culture (Wb) - Right Hand Blood Culture - Final No growth in 5 days. 10/14/19 00:40 Blood Culture (Wb) - Anticubital Left Blood Culture - Final No growth in 5 days. 10/14/19 Unknown Sputum, Induced/Lukens Gram Stain - Final 10/14/19 Unknown Sputum, Induced/[place]ens Respiratory Culture - Final Strep not Strep pneumo 10/14/19 01:35 Urine, Clean Catch Urine Culture - Final Culture exhibits no growth. 10/14/19 00:38 Mucosa - Throat Group A Streptococcus Rapid Screen - Final 10/14/19 Unknown Urine Catheter - [place] Gram Stain - Final 10/14/19 14:15 Urine Catheter - [place] Streptococcus pneumoniae Antigen (M - Final 10/14/19 14:15 Urine Catheter - [place] Legionella Antigen - Final 10/14/19 00:49 Mucosa - Nose Respiratory Panel (PCR) - Final 10/14/19 00:49 Mucosa - Nose Rapid RSV (DFA) - Final 10/14/19 00:49 Mucosa - Nose Influenza Types A,B Direct FA (MARC) - Final Goal Trough: 15-20 mcg/mL Pharmacy Plan for Drug Dosing: Pharmacy Service will continue to monitor and adjust dosing as required. TROUGH 8.6 INCREASE TO 1GM Q12H AND REDRAW TROUGH IN 4 DOSES Follow-Up Labs: Trough Vancomycin Labs to be done on [date and time ordered]: 10/27 @ 4068
[2019-10-27] MEDS: 0.9% Saline Lock 10 ML Syringe IV ×2 (04:29→09:31)
[2019-10-27] MEDS: metroNIDAZOLE 500 MG/100 ML BAG 100 MG IV ×3 (05:07→23:16)
[2019-10-27 05:10] LABS: Bedside Glucose 132 mg/dL (70-110)
[2019-10-27] MEDS: Ipratropium/Albuterol Sulfate 3 ML AMPUL.NEB INHALATION ×4 (06:50→19:48)
[2019-10-27 06:52] LABS: Absolute Lymphocyte Count 0.23 X10^3/uL (0.83-4.51); Basophil# 0.02 X10^3/uL; Basophil% 0.1 % (0-1); Eosinophil# 0.19 X10^3/uL; Eosinophils% 1.2 % (0-5); Hematocrit 41.4 % (40-54); Hemoglobin 13.8 g/dL (13.0-16.5); Lymphocyte # 0.23 X10^3/ul (4.0); Lymphocyte % 1.5 % (19-41); Mean Corp Hgb Conc 33.3 g/dL (32-36); Mean Corpuscular Hgb 32.1 pg (27.0-32.0); Mean Corpuscular Volume 96.3 fL (80-94); Monocyte% 5.2 % (0-10); NRBC Flagged by Analyzer 0.2 % (0-5); Neutrophil # 14.03 X10^3/uL (2.7-7.7); Neutrophil % 90.9 % (47-70); POSITIVE COUNT YES; POSITIVE DIFFERENTIAL YES; RBC Distribution Width CV 13.9 % (11.6-14.6); RBC Distribution Width SD 46.3 fl (35.1-43.9); White Blood Count 15.4 K/mm3 (4.4-11.0)
[2019-10-27 07:00] LABS: Differential Indicated SCAN CRITERIA MET; Platelet Count 36 K/mm3 (150-450)
[2019-10-27 07:18] LABS: BUN 23 mg/dL (7-18); Creatinine, Serum 0.53 mg/dL (0.70-1.30); Glucose 138 mg/dL (74-106)
[2019-10-27 07:19] LABS: ALB/GLOB Ratio 0.8 RATIO (0.9-2.4); AST(SGOT) 57 U/L (15-37); Alanine Aminotransfer ALT/SGPT 206 U/L (16-61); Albumin, Serum 2.1 g/dL (3.2-5.0); Alkaline Phosphatase 120 U/L (45-117); Anion Gap 8 (5-15); BUN/Creat Ratio 43.6 RATIO (10-20); Chloride 107 mmol/L (98-107); EST Glomerular Filtration Rate 164 mL/min (>60); Est Glom Filt Rate - Afr Amer 198 mL/min (>60); Estimated Creatinine Clearance 58.65 ml/min; Globulin 2.6 g/dL (2.2-4.2); Magnesium 1.8 mg/dL (1.6-2.6); Potassium 3.1 mmol/L (3.5-5.1); Protein, Total 4.7 g/dL (6.4-8.2); Sodium Level 144 mmol/L (136-145)
[2019-10-27 08:20] LABS: Platelet Estimate MKD DEC (ADEQ); Red Cell Morphology NORM C+C NORMAL (NORM C&C)
[2019-10-27] MEDS: levoFLOXacin IV 750 MG/150 ML BAG 100 MG IV (09:30)
[2019-10-27] MEDS: Furosemide 20 MG/2 ML VIAL 40 MG IV (09:30)
[2019-10-27] MEDS: Vancomycin IV 1,000 MG/200 ML BAG 200 MG IV ×2 (09:31→21:50)
[2019-10-27] MEDS: Menthol/Lanolin/Calamine/Znox 113 GM Tube 1 APPLIC TOPICAL ×2 (09:31→21:31)
--- NOTE | 2019-10-27 10:27 | PN.ID_ITS ---
Patient Problems: Active and Suspected Problems (Last Reviewed 07/15/18 @ 16:45 by April Hyatt) Severe sepsis (Acute) Acute on chronic respiratory failure with hypoxia (Acute) COPD exacerbation (Acute) Bilateral pneumonia (Acute) Suspected 2019 novel coronavirus infection (Acute) Pneumonia of both lower lobes (Acute) Respiratory failure (Acute) Subjective: Feeling better, no abd pain, mild dyspnea, no fever - Physical Exam Vitals/I&O's: Vital Signs Temp Pulse Resp BP Pulse Ox 98.5 F 75 18 110/71 97 10/27/19 08:30 10/27/19 08:30 10/27/19 08:30 10/27/19 08:30 10/27/19 08:30 Oxygen Flow Rate (L/min) [3] 4 Oxygen Flow Rate (L/min) [2] 4 Oxygen Flow Rate (L/min) [1 ( 4 Initial Baseline)] Oxygen Flow Rate (L/min) 2 Oxygen Delivery Method [3] Nasal Cannula Oxygen Delivery Method [2] Nasal Cannula Oxygen Delivery Method [1 ( Nasal Cannula Initial Baseline)] Oxygen Delivery Method Nasal Cannula Weight: 61.2 kg Body Mass Index (BMI) 21.7 Intake and Output for Last 24 Hours 10/25/19 10/26/19 10/27/19 23:59 23:59 23:59 Intake Total 4244.37 / 4244.37 4451.15 / 4451.15 527.15 / 527.15 Output Total 200 / 200 Balance 4044.37 / 4044.37 4451.15 / 4451.15 527.15 / 527.15 General: Alert, No apparent distress, - - oriented x1 Lungs: Diminished Cardiovascular: Regular rate, Regular Rhythm Abdomen: Soft, Non Tender, Non-Distended Skin: No rashes Microbiology Past 72 Hours 10/25/19 12:50 Blood Culture (Wb) - Pic Blood Culture - Preliminary No growth in 48 hours. 10/25/19 10:35 Urine, Catheterized Urine Culture - Preliminary Culture exhibits no growth. Laboratory Results 10/26/19 06:10: Diff Path Review Reviewed 10/26/19 11:42: POC Glucose 266 H 10/26/19 18:02: POC Glucose 149 H 10/26/19 23:35: Vancomycin Trough 8.6 10/27/19 01:53: POC Glucose 181 H 10/27/19 05:03: POC Glucose 132 H 10/27/19 06:18: WBC 15.4 H, RBC 4.30 L, Hgb 13.8, Hct 41.4, MCV 96.3 H, MCH 32.1 H, MCHC 33.3, RDW Std Deviation 46.3 H, RDW Coeff of Xenia 13.9, Plt Count 36 L*, Immature Gran % (Auto) 1.100 H, Neut % (Auto) 90.9 H, Lymph % (Auto) 1.5 L, Maury % (Auto) 5.2, Eos % (Auto) 1.2, Baso % (Auto) 0.1, Absolute Neuts (auto) 14.0 H, Absolute Lymphs (auto) 0.23 L, Nucleated RBC % 0.2, Differential Comment , Diff Path Review November foll, Platelet Estimate MKD DEC, RBC Morphology NORM C+C 10/27/19 06:18: Sodium 144, Potassium 3.1 L, Chloride 107, Carbon Dioxide 29.0, Anion Gap 8, BUN 23 H, Creatinine 0.53 L, Estim Creat Clear Calc 58.65, Est GFR (MDRD) Af Amer 198, Est GFR (MDRD) Non-Af 164, BUN/Creatinine Ratio 43.6 H, Glucose 138 H, Calcium 8.0 L, Phosphorus 2.0 L, Magnesium 1.8, Total Bilirubin 2.20 H, AST 57 H, ALT 206 H, Alkaline Phosphatase 120 H, Total Protein 4.7 L, Albumin 2.1 L, Globulin 2.6, Albumin/Globulin Ratio 0.8 L Current Medications Acetaminophen (Tylenol) 650 mg PO Q6H PRN PRN PRN Reason: Pain Score 1-10/Temp > 100.7 F Albuterol Sulfate (Ventolin Aerosols) 2.5 mg INHALATION Q2H PRN PRN PRN Reason: Dyspnea, wheezing Last Admin: 10/16/19 14:35 Dose: 2.5 mg Documented by: Albuterol/Ipratropium (Duoneb) 3 ml INHALATION Q4HWA.RT [facility] Last Admin: 10/27/19 06:50 Dose: 3 ml Documented by: Calamine/Phenol (Calmoseptine Ointment) 1 applic TOPICAL BID [facility]; Protocol Last Admin: 10/27/19 09:31 Dose: 1 applicatio Documented by: Dextrose (D50w Syringe) 0 gm IV X1 PRN; Protocol PRN Reason: Hypoglycemia Furosemide (Lasix) 40 mg IV BID@1000,1800 [facility] Last Admin: 10/27/19 09:30 Dose: 40 mg Documented by: Glucagon () 1 mg IM .X1 PRN PRN Reason: Hypoglycemia Guaifenesin (Robitussin) 10 ml PO Q4H PRN PRN PRN Reason: COUGH Hydralazine HCl (Apresoline Iv) 5 mg IV Q4H PRN PRN PRN Reason: BLOOD PRESSURE Last Admin: 10/24/19 16:23 Dose: 5 mg Documented by: Sodium Chloride () 250 mls @ 15 mls/hr IV .[id number] PRN PRN Reason: Saline Flush Last Infusion: 10/27/19 06:15 Dose: 15 mls/hr Documented by: Sodium Chloride () 250 mls @ 15 mls/hr IV .[id number] PRN PRN Reason: Additional IVPB Infusion Vancomycin IV Pharmacy to Dose (1 ea/ Sodium Chloride) 500 mls @ 250 mls/hr IV PRN PRN; Protocol PRN Reason: Rx to Dose Levofloxacin (Levaquin Iv) 750 mg in 150 mls @ 100 mls/hr IV Q24 [facility] Last Admin: 10/27/19 09:30 Dose: 100 mls/hr Documented by: Metronidazole (Flagyl) 500 mg in 100 mls @ 100 mls/hr IV Q8 [facility] Last Infusion: 10/27/19 06:15 Dose: Infused Documented by: Pantoprazole Sodium 40 mg/ (Sodium Chloride) 110 mls @ 330 mls/hr IV Q12 [facility] Last Infusion: 10/27/19 10:24 Dose: Infused Documented by: Multivitamins 10 ml/ Chromium/Copper/Manganese/Seleni/Zn 1 ml/ Folic Acid 1 mg/ Amino Acids/Electrolytes 2,011 mls @ 42 mls/hr IV .Q24H [facility] Stop: 10/27/19 15:47 Last Infusion: 10/26/19 23:00 Dose: 42 mls/hr Documented by: Vancomycin HCl (Vancomycin) 1,000 mg in 200 mls @ 200 mls/hr IV Q12H [facility] Last Admin: 10/27/19 09:31 Dose: 200 mls/hr Documented by: Insulin Human Lispro (Humalog Kwikpen (Bkc)) 0 unit SC Q6 [facility]; Protocol Last Admin: 10/27/19 05:06 Dose: Not Given Documented by: Labetalol HCl (Trandate) 10 mg IV Q4H [facility] Last Admin: 10/27/19 08:31 Dose: Not Given Documented by: Morphine Sulfate () 2 mg IV Q2H PRN PRN PRN Reason: Pain Score 6-10/10 Last Admin: 10/26/19 00:22 Dose: 2 mg Documented by: Nitroglycerin (Nitrostat) 0.4 mg SUBLINGUAL Q5M PRN PRN Reason: CARDIAC/CHEST PAIN Senna/Docusate Sodium (Senokot-S, Ami-Colace) 2 tablet PO BID PRN PRN PRN Reason: Constipation Sodium Chloride () 10 - 40 ml IV UD PRN PRN Reason: SALINE FLUSH Last Admin: 10/27/19 09:31 Dose: 10 ml Documented by: Medical Necessity - Tobacco Use Smoking Status: Former smoker Tobacco Use: Non-smoker Route of nutrition/ use of supplements: [] Nutritional Intake: [] IV Site: [] Moreira Catheter: [] - Assessment/Plan Antibiotics: [] Assessment/Plan: [] Active and Suspected Problems (Last Reviewed 07/15/18 @ 16:45 by April Hyatt) Severe sepsis (Acute) Acute on chronic respiratory failure with hypoxia (Acute) COPD exacerbation (Acute) Bilateral pneumonia (Acute) Suspected 2018 novel coronavirus infection (Acute) Pneumonia of both lower lobes (Acute) Respiratory failure (Acute) Subjective fever at home, reported chest pain, hypoxia, cough. COVID neg. 10/24 changed cefepime to vanc/levaquin/flagyl. LFTs improving past few days. Wbc better, mental status much improved, but plat continue to be low Large bilat effusions. Seen by Dr. Bran for free air in abd, large stool disimpacted. Will follow, d/w Dr. Klein
--- NOTE | 2019-10-27 11:10 | CASEMGMT ---
FLORIDALMA let Lisa in TCU know that patient is not ready today. Antonette SANABRIA [employer]
--- NOTE | 2019-10-27 11:15 | PN_ITS ---
<Silva Bonner - Last Filed: 10/27/19 11:34> Patient Problems: Active and Suspected Problems (Last Reviewed 07/15/18 @ 16:45 by April Hyatt) Severe sepsis (Acute) Acute on chronic respiratory failure with hypoxia (Acute) COPD exacerbation (Acute) Bilateral pneumonia (Acute) Suspected 2018 novel coronavirus infection (Acute) Pneumonia of both lower lobes (Acute) Respiratory failure (Acute) Subjective: Patient seen and examined. Alert, responding verbally. Able to state where he has stopped. Denies current complaints. - Physical Exam Vitals/I&O's: Vital Signs Temp Pulse Resp BP Pulse Ox 98.2 F 80 18 109/73 98 10/27/19 11:10 10/27/19 11:10 10/27/19 11:10 10/27/19 11:10 10/27/19 11:10 Oxygen Flow Rate (L/min) [3] 4 Oxygen Flow Rate (L/min) [2] 4 Oxygen Flow Rate (L/min) [1 ( 4 Initial Baseline)] Oxygen Flow Rate (L/min) 2 Oxygen Delivery Method [3] Nasal Cannula Oxygen Delivery Method [2] Nasal Cannula Oxygen Delivery Method [1 ( Nasal Cannula Initial Baseline)] Oxygen Delivery Method Nasal Cannula Weight: 134 lb 14.766 oz Body Mass Index (BMI) 21.7 Intake and Output for Last 24 Hours 10/25/19 10/26/19 10/27/19 23:59 23:59 23:59 Intake Total 4244.37 / 4244.37 4451.15 / 4451.15 923.40 / 923.40 Output Total 200 / 200 Balance 4044.37 / 4044.37 4451.15 / 4451.15 923.40 / 923.40 General: Alert, Oriented x3, Cooperative HEENT: Atraumatic, PERRLA, EOMI, Normocephalic Neck: Supple, No JVD, Negative Carotid Bruits Lungs: Clear to auscultation, Normal air movement Cardiovascular: Regular rate, Regular Rhythm, Normal S1, Normal S2, No murmurs Abdomen: Bowel Sounds Present, Soft, Non Tender, Non-Distended Extremities: No clubbing, No cyanosis, No edema, Capillary Refill Less than 3 Seconds Skin: No rashes, No breakdown Musculoskeletal: No Tenderness to Palpation of Joints or Extremities, Cachexia, Muscle Wasting Neurological: Cranial nerves II-XII grossly intact, Neuro grossly intact Psych/Mental Status: Flat Affect Microbiology Past 72 Hours 10/25/19 12:50 Blood Culture (Wb) - Pic Blood Culture - Preliminary No growth in 48 hours. 10/25/19 10:35 Urine, Catheterized Urine Culture - Preliminary Culture exhibits no growth. Laboratory Results 10/26/19 06:10: Diff Path Review Reviewed 10/26/19 11:42: POC Glucose 266 H 10/26/19 18:02: POC Glucose 149 H 10/26/19 23:35: Vancomycin Trough 8.6 10/27/19 01:53: POC Glucose 181 H 10/27/19 05:03: POC Glucose 132 H 10/27/19 06:18: WBC 15.4 H, RBC 4.30 L, Hgb 13.8, Hct 41.4, MCV 96.3 H, MCH 32.1 H, MCHC 33.3, RDW Std Deviation 46.3 H, RDW Coeff of Xenia 13.9, Plt Count 36 L*, Immature Gran % (Auto) 1.100 H, Neut % (Auto) 90.9 H, Lymph % (Auto) 1.5 L, Rock % (Auto) 5.2, Eos % (Auto) 1.2, Baso % (Auto) 0.1, Absolute Neuts (auto) 14.0 H, Absolute Lymphs (auto) 0.23 L, Nucleated RBC % 0.2, Differential Comment , Diff Path Review May foll, Platelet Estimate MKD DEC, RBC Morphology NORM C+C 10/27/19 06:18: Sodium 144, Potassium 3.1 L, Chloride 107, Carbon Dioxide 29.0, Anion Gap 8, BUN 23 H, Creatinine 0.53 L, Estim Creat Clear Calc 58.65, Est GFR (MDRD) Af Amer 198, Est GFR (MDRD) Non-Af 164, BUN/Creatinine Ratio 43.6 H, Glucose 138 H, Calcium 8.0 L, Phosphorus 2.0 L, Magnesium 1.8, Total Bilirubin 2.20 H, AST 57 H, ALT 206 H, Alkaline Phosphatase 120 H, Total Protein 4.7 L, Albumin 2.1 L, Globulin 2.6, Albumin/Globulin Ratio 0.8 L Current Medications Acetaminophen (Tylenol) 650 mg PO Q6H PRN PRN PRN Reason: Pain Score 1-10/Temp > 100.7 F Albuterol Sulfate (Ventolin Aerosols) 2.5 mg INHALATION Q2H PRN PRN PRN Reason: Dyspnea, wheezing Last Admin: 10/16/19 14:35 Dose: 2.5 mg Documented by: Albuterol/Ipratropium (Duoneb) 3 ml INHALATION Q4HWA.RT [facility] Last Admin: 10/27/19 10:36 Dose: 3 ml Documented by: Calamine/Phenol (Calmoseptine Ointment) 1 applic TOPICAL BID [facility]; Protocol Last Admin: 10/27/19 09:31 Dose: 1 applicatio Documented by: Dextrose (D50w Syringe) 0 gm IV X1 PRN; Protocol PRN Reason: Hypoglycemia Furosemide (Lasix) 40 mg IV BID@1000,1800 [facility] Last Admin: 10/27/19 09:30 Dose: 40 mg Documented by: Glucagon () 1 mg IM .X1 PRN PRN Reason: Hypoglycemia Guaifenesin (Robitussin) 10 ml PO Q4H PRN PRN PRN Reason: COUGH Hydralazine HCl (Apresoline Iv) 5 mg IV Q4H PRN PRN PRN Reason: BLOOD PRESSURE Last Admin: 10/24/19 16:23 Dose: 5 mg Documented by: Sodium Chloride () 250 mls @ 15 mls/hr IV .[id number] PRN PRN Reason: Saline Flush Last Infusion: 10/27/19 09:20 Dose: 0 mls/hr Documented by: Sodium Chloride () 250 mls @ 15 mls/hr IV .[id number] PRN PRN Reason: Additional IVPB Infusion Vancomycin IV Pharmacy to Dose (1 ea/ Sodium Chloride) 500 mls @ 250 mls/hr IV PRN PRN; Protocol PRN Reason: Rx to Dose Levofloxacin (Levaquin Iv) 750 mg in 150 mls @ 100 mls/hr IV Q24 [facility] Last Infusion: 10/27/19 11:07 Dose: Infused Documented by: Metronidazole (Flagyl) 500 mg in 100 mls @ 100 mls/hr IV Q8 [facility] Last Infusion: 10/27/19 06:15 Dose: Infused Documented by: Pantoprazole Sodium 40 mg/ (Sodium Chloride) 110 mls @ 330 mls/hr IV Q12 [facility] Last Infusion: 10/27/19 10:24 Dose: Infused Documented by: Multivitamins 10 ml/ Chromium/Copper/Manganese/Seleni/Zn 1 ml/ Folic Acid 1 mg/ Amino Acids/Electrolytes 2,011 mls @ 42 mls/hr IV .Q24H [facility] Stop: 10/27/19 15:47 Last Infusion: 10/26/19 23:00 Dose: 42 mls/hr Documented by: Vancomycin HCl (Vancomycin) 1,000 mg in 200 mls @ 200 mls/hr IV Q12H [facility] Last Infusion: 10/27/19 10:41 Dose: Infused Documented by: Insulin Human Lispro (Humalog Kwikpen (Bkc)) 0 unit SC Q6 [facility]; Protocol Last Admin: 10/27/19 05:06 Dose: Not Given Documented by: Labetalol HCl (Trandate) 10 mg IV Q4H [facility] Last Admin: 10/27/19 08:31 Dose: Not Given Documented by: Morphine Sulfate () 2 mg IV Q2H PRN PRN PRN Reason: Pain Score 6-10/10 Last Admin: 10/26/19 00:22 Dose: 2 mg Documented by: Nitroglycerin (Nitrostat) 0.4 mg SUBLINGUAL Q5M PRN PRN Reason: CARDIAC/CHEST PAIN Senna/Docusate Sodium (Senokot-S, Ami-Colace) 2 tablet PO BID PRN PRN PRN Reason: Constipation Sodium Chloride () 10 - 40 ml IV UD PRN PRN Reason: SALINE FLUSH Last Admin: 10/27/19 09:31 Dose: 10 ml Documented by: Medical Necessity - Tobacco Use Smoking Status: Former smoker Tobacco Use: Non-smoker Assessment/Plan All Active Problems (Last Reviewed 07/15/18 @ 16:45 by April Hyatt) Thrombocytopenia (Acute) Severe sepsis (Acute) Acute on chronic respiratory failure with hypoxia (Acute) COPD exacerbation (Acute) Bilateral pneumonia (Acute) Suspected 2018 novel coronavirus infection (Acute) Pneumonia of both lower lobes (Acute) Respiratory failure (Acute) Bronchitis (Acute) URI (upper respiratory infection) (Acute) Sinusitis, acute maxillary (Acute) 1. Acute metabolic encephalopathy-slowly improving. CT of brain negative. Unable to have MRI due to vascular clips. Suspect secondary to underlying infectious process/streptococcal pneumonia. 2. Acute hypoxic respiratory failure secondary to streptococcal pneumonia-COVID negative. Extubated 10/15/2019. Continue BiPAP as needed. Infectious disease following. Continue IV vancomycin, IV Levaquin and IV Flagyl. Blood and urine cultures negative. Albuterol and DuoNeb aerosols. Continue supplement oxygen to maintain O2 sat above 90%. 3. Acute heart failure with reduced ejection fraction-likely contributing to #2 as well. BNP greater than 5000. Chest CT with bilateral pleural effusions. Echocardiogram with EF 35%, mild to moderate mitral valve insufficiency, mild to moderate tricuspid valve insufficiency, moderate pulmonary hypertension, pulmonary artery systolic pressure 47 mmHg. Continue IV Lasix. Strict I&O. 4. Thrombocytopenia- hem/onc following. Lovenox on hold. Trend CBC. 5. Acute transaminitis-prior liver ultrasound normal. Trending down. CT of abdomen shows large amount of fecal material in the rectosigmoid colon. 6. Dysphagia-speech therapy following. Continue TPN. 7. Hypertension-stable, continue PRN labetalol, hydralazine. 8. Type 2 diabetes [id number] with sliding scale insulin. 9. Abdominal aortic aneurysm-as noted on CT abdomen, 5.1 cm. Recommend outpatient follow-up. DVT prophylaxis-SCDs Discharge planning: SNF when medically stable This patient was seen by JOSE Dyer under the supervision of Dr. Klein. <Kevin Klein - Last Filed: 10/27/19 15:17> - Physical Exam Vitals/I&O's: Vital Signs Temp Pulse Resp BP Pulse Ox 98.2 F 84 18 109/73 98 10/27/19 11:10 10/27/19 14:49 10/27/19 11:10 10/27/19 11:10 10/27/19 11:10 Oxygen Flow Rate (L/min) [3] 4 Oxygen Flow Rate (L/min) [2] 4 Oxygen Flow Rate (L/min) [1 ( 4 Initial Baseline)] Oxygen Flow Rate (L/min) 2 Oxygen Delivery Method [3] Nasal Cannula Oxygen Delivery Method [2] Nasal Cannula Oxygen Delivery Method [1 ( Nasal Cannula Initial Baseline)] Oxygen Delivery Method Nasal Cannula Weight: 61.2 kg Body Mass Index (BMI) 21.7 Intake and Output for Last 24 Hours 10/25/19 10/26/19 10/27/19 23:59 23:59 23:59 Intake Total 4244.37 / 4244.37 4451.15 / 4451.15 1023.40 / 1023.40 Output Total 200 / 200 Balance 4044.37 / 4044.37 4451.15 / 4451.15 1023.40 / 1023.40 Microbiology Past 72 Hours 10/25/19 12:50 Blood Culture (Wb) - Pic Blood Culture - Preliminary No growth in 48 hours. 10/25/19 10:35 Urine, Catheterized Urine Culture - Preliminary Culture exhibits no growth. Laboratory Results 10/26/19 18:02: POC Glucose 149 H 10/26/19 23:35: Vancomycin Trough 8.6 10/27/19 01:53: POC Glucose 181 H 10/27/19 05:03: POC Glucose 132 H 10/27/19 06:18: WBC 15.4 H, RBC 4.30 L, Hgb 13.8, Hct 41.4, MCV 96.3 H, MCH 32.1 H, MCHC 33.3, RDW Std Deviation 46.3 H, RDW Coeff of Xenia 13.9, Plt Count 36 L*, Immature Gran % (Auto) 1.100 H, Neut % (Auto) 90.9 H, Lymph % (Auto) 1.5 L, Rock % (Auto) 5.2, Eos % (Auto) 1.2, Baso % (Auto) 0.1, Absolute Neuts (auto) 14.0 H, Absolute Lymphs (auto) 0.23 L, Nucleated RBC % 0.2, Differential Comment , Diff Path Review May celsa, Platelet Estimate MKD DEC, RBC Morphology NORM C+C 10/27/19 06:18: Sodium 144, Potassium 3.1 L, Chloride 107, Carbon Dioxide 29.0, Anion Gap 8, BUN 23 H, Creatinine 0.53 L, Estim Creat Clear Calc 58.65, Est GFR (MDRD) Af Amer 198, Est GFR (MDRD) Non-Af 164, BUN/Creatinine Ratio 43.6 H, Glucose 138 H, Calcium 8.0 L, Phosphorus 2.0 L, Magnesium 1.8, Total Bilirubin 2.20 H, AST 57 H, ALT 206 H, Alkaline Phosphatase 120 H, Total Protein 4.7 L, Albumin 2.1 L, Globulin 2.6, Albumin/Globulin Ratio 0.8 L 10/27/19 11:16: POC Glucose 182 H Current Medications Acetaminophen (Tylenol) 650 mg PO Q6H PRN PRN PRN Reason: Pain Score 1-10/Temp > 100.7 F Albuterol Sulfate (Ventolin Aerosols) 2.5 mg INHALATION Q2H PRN PRN PRN Reason: Dyspnea, wheezing Last Admin: 10/16/19 14:35 Dose: 2.5 mg Documented by: Albuterol/Ipratropium (Duoneb) 3 ml INHALATION Q4HWA.RT [facility] Last Admin: 10/27/19 14:48 Dose: 3 ml Documented by: Calamine/Phenol (Calmoseptine Ointment) 1 applic TOPICAL BID [facility]; Protocol Last Admin: 10/27/19 09:31 Dose: 1 applicatio Documented by: Dextrose (D50w Syringe) 0 gm IV X1 PRN; Protocol PRN Reason: Hypoglycemia Furosemide (Lasix) 20 mg IV DAILY [facility] Glucagon () 1 mg IM .X1 PRN PRN Reason: Hypoglycemia Guaifenesin (Robitussin) 10 ml PO Q4H PRN PRN PRN Reason: COUGH Hydralazine HCl (Apresoline Iv) 5 mg IV Q4H PRN PRN PRN Reason: BLOOD PRESSURE Last Admin: 10/24/19 16:23 Dose: 5 mg Documented by: Sodium Chloride () 250 mls @ 15 mls/hr IV .[id number] PRN PRN Reason: Saline Flush Last Infusion: 10/27/19 09:20 Dose: 0 mls/hr Documented by: Sodium Chloride () 250 mls @ 15 mls/hr IV .[id number] PRN PRN Reason: Additional IVPB Infusion Vancomycin IV Pharmacy to Dose (1 ea/ Sodium Chloride) 500 mls @ 250 mls/hr IV PRN PRN; Protocol PRN Reason: Rx to Dose Levofloxacin (Levaquin Iv) 750 mg in 150 mls @ 100 mls/hr IV Q24 [facility] Last Infusion: 10/27/19 11:07 Dose: Infused Documented by: Metronidazole (Flagyl) 500 mg in 100 mls @ 100 mls/hr IV Q8 [facility] Last Infusion: 10/27/19 14:33 Dose: Infused Documented by: Pantoprazole Sodium 40 mg/ (Sodium Chloride) 110 mls @ 330 mls/hr IV Q12 [facility] Last Infusion: 10/27/19 10:24 Dose: Infused Documented by: Multivitamins 10 ml/ Chromium/Copper/Manganese/Seleni/Zn 1 ml/ Folic Acid 1 mg/ Amino Acids/Electrolytes 2,011 mls @ 42 mls/hr IV .Q24H [facility] Stop: 10/27/19 15:47 Last Infusion: 10/26/19 23:00 Dose: 42 mls/hr Documented by: Vancomycin HCl (Vancomycin) 1,000 mg in 200 mls @ 200 mls/hr IV Q12H [facility] Last Infusion: 10/27/19 10:41 Dose: Infused Documented by: Multivitamins 10 ml/ Chromium/Copper/Manganese/Seleni/Zn 1 ml/ Folic Acid 1 mg/ Amino Acids/Electrolytes 2,011 mls @ 84 mls/hr IV .[id number] [facility] Stop: 10/28/19 15:48 Potassium Chloride () 10 meq in 100 mls @ 100 mls/hr IV BOLUS Q1H [facility] Stop: 10/27/19 19:14 Insulin Human Lispro (Humalog Kwikpen (Bkc)) 0 unit SC Q6 [facility]; Protocol Last Admin: 10/27/19 11:19 Dose: 3 units Documented by: Labetalol HCl (Trandate) 10 mg IV Q4H [facility] Last Admin: 10/27/19 11:18 Dose: Not Given Documented by: Morphine Sulfate () 2 mg IV Q2H PRN PRN PRN Reason: Pain Score 6-10/10 Last Admin: 10/26/19 00:22 Dose: 2 mg Documented by: Nitroglycerin (Nitrostat) 0.4 mg SUBLINGUAL Q5M PRN PRN Reason: CARDIAC/CHEST PAIN Senna/Docusate Sodium (Senokot-S, Ami-Colace) 2 tablet PO BID PRN PRN PRN Reason: Constipation Sodium Chloride () 10 - 40 ml IV UD PRN PRN Reason: SALINE FLUSH Last Admin: 10/27/19 09:31 Dose: 10 ml Documented by: Assessment/Plan This patient was seen in conjunction with JOSE Dyer . I have independently interviewed and examined the patient and reviewed pertinent historical, laboratory, and other data. Please refer to JOSE Dyer note for details of this patient's presentation, findings, and recommendations. I have reviewed JOSE Dyer note and concur with documented findings. In brief, patient 69-year-old gentleman admitted with progressive shortness of breath. Patient has had a protracted stay. -10/25/2019 patient more lethargic than usual ?10/26/2019 patient seen much more awake and cooperative compared to the day prior. Appears to be improving clinically. -10/27/2019: Patient was found to have air under the diaphragm 3 days prior for which was managed conservatively with stool disimpaction by general surgery. Overall clinical condition continues to improve. Antibiotic therapy adjusted by Dr. Maradiaga with infectious disease. Physical Examination: GENERAL: Awake and cooperative HEENT: Atraumatic; EYES; Anicteric, Normal Conjunctiva NECK; supple, normal thyroid, RESPIRATORY: Diminished to auscultation CARDIOVASCULAR: Regular S1 S2, Assessment: 1. Acute metabolic encephalopathy 2. Acute hypoxic respiratory failure 3. Streptococcal pneumonia 4. Thrombocytopenia 5. Hypernatremia 6. Acute transaminitis 7. Essential hypertension 8. Dysphagia 9. Bilateral pleural effusions right greater than left with bibasilar atelectasis and/or infiltrate. 10. Infrarenal fusiform abdominal aortic aneurysm with a transverse dimension of 5.1 cm. 11. Obstipation with Large amount of fecal material is seen in the rectosigmoid colon Recommendations: 1. Options for management were reviewed Inpatient E&M: 85893 [facility] L2
[2019-10-27 11:30] LABS: Bedside Glucose 182 mg/dL (70-110)
--- NOTE | 2019-10-27 12:14 | PCM.NTREPORT ---
Nutrition Therapy Report - History Nutrition Services has been consulted to:: Manage parenteral nutrition Current diet / nutrition support order:: NPO; TPN- 1L 5%AA/20% dextrose w/ 500mL 20% lipid solution to provide 1880 calories, 50 g protein - Anthropometric Measurements Height:: 5 ft 6 in Weight:: 61.2 kg Body Mass Index (BMI):: 21.7 - Relevant Labs Relevant Labs:: WBC 15.4 K/mm3 (4.4-11.0) H 10/27/19 06:18 RBC 4.30 M/mm3 (4.6-6.2) L 10/27/19 06:18 Hgb 12.7 g/dL (13.0-16.5) L 10/26/19 06:10 Hct 38.5 % (40-54) L 10/26/19 06:10 MCV 96.3 fL (80-94) H 10/27/19 06:18 MCH 32.1 pg (27.0-32.0) H 10/27/19 06:18 RDW Std Deviation 46.3 fl (35.1-43.9) H 10/27/19 06:18 Plt Count 36 K/mm3 (150-450) L* 10/27/19 06:18 MPV 14.2 fl (6.2-12.0) H 10/21/19 04:40 Immature Gran % (Auto) 1.100 % (0.0-0.9) H 10/27/19 06:18 Neut % (Auto) 90.9 % (47-70) H 10/27/19 06:18 Lymph % (Auto) 1.5 % (19-41) L 10/27/19 06:18 Absolute Neuts (auto) 14.0 X10^3/uL (2.0-7.7) H 10/27/19 06:18 Absolute Lymphs (auto) 0.23 X10^3/uL (0.83-4.51) L 10/27/19 06:18 PT 19.3 SECONDS (11.7-14.9) H 10/24/19 06:28 APTT 24.0 Seconds (24.1-36.2) L 10/19/19 08:15 Sodium 148 mmol/L (136-145) H 10/24/19 06:28 Potassium 3.1 mmol/L (3.5-5.1) L 10/27/19 06:18 Chloride 115 mmol/L (98-107) H 10/26/19 06:10 Carbon Dioxide 20.0 mmol/L (21.0-32.0) L 10/20/19 14:05 BUN 23 mg/dL (7-18) H 10/27/19 06:18 Creatinine 0.53 mg/dL (0.70-1.30) L 10/27/19 06:18 BUN/Creatinine Ratio 43.6 RATIO (10-20) H 10/27/19 06:18 Glucose 138 mg/dL (74-106) H 10/27/19 06:18 Lactic Acid 2.3 mmol/L (0.4-1.9) H* 10/14/19 03:28 Calcium 8.0 mg/dL (8.5-10.1) L 10/27/19 06:18 Phosphorus 2.0 mg/dL (2.5-4.9) L 10/27/19 06:18 Magnesium 2.7 mg/dL (1.6-2.6) H 10/23/19 06:45 Total Bilirubin 2.20 mg/dL (0.20-1.00) H 10/27/19 06:18 Direct Bilirubin 1.92 mg/dL (0.00-0.30) H 10/22/19 06:00 AST 57 U/L (15-37) H 10/27/19 06:18 ALT 206 U/L (16-61) H 10/27/19 06:18 Alkaline Phosphatase 120 U/L (45-117) H 10/27/19 06:18 Ammonia < 10.0 umol/L (11-32) L 10/19/19 08:15 Lactate Dehydrogenase 811 U/L (87-241) H 10/24/19 06:28 C-React Prot Ext Range 10.00 mg/L (0.0-3.0) H 10/14/19 00:38 B-Natriuretic Peptide > 5000.0 pg/mL (0-100) H 10/25/19 06:00 Total Protein 4.7 g/dL (6.4-8.2) L 10/27/19 06:18 Albumin 2.1 g/dL (3.2-5.0) L 10/27/19 06:18 Albumin/Globulin Ratio 0.8 RATIO (0.9-2.4) L 10/27/19 06:18 HDL Cholesterol 16 mg/dL (40-) L 10/23/19 06:45 Procalcitonin 0.11 ng/mL (0.00-0.09) H 10/25/19 06:00 - Assessment Food / Nutrition-Related History:: Remains NPO. [employer]MM[employer] following. TPN w/ lipids yesterday-- 1L 5%AA/20% dextrose solution w/ 500mL 20% lipid solution to provide 1880 calories, 200 g dextrose, and 50 g protein. Wt stable, increase of 0.1kg since last review. Continues on IV lasix. LFTs improving. - Nutrition Intervention Nutrition Prescription:: 8939-4531 calories/day, 70-80 g protein/day - Food / Nutrient Delivery Interventions Summary of nutrition intervention:: Consulted by provider to renew TPN today. Per order, no insulin or famotidine in TPN today. Nutrition support ordered as / adjusted to:: 2L 5%AA/20% dextrose solution w/ electrolytes to provide 1760 calories, 400 g dextrose, and 100 g protein (meets 100% of calorie and estimated protein needs). Per provider order, no insulin or famotidine added to TPN today. Last lipids 10/25- no lipids today. Nutrition education provided?: No - MNT Monitoring Further MNT monitoring and evaluation required?: Yes MNT Follow-up in:: 1-2 days - Will continue to monitor and manage nutrient details of TPN as renewed by provider
--- NOTE | 2019-10-27 12:36 | PN_ITS ---
Patient Problems: Active and Suspected Problems (Last Reviewed 07/15/18 @ 16:45 by April Hyatt) Severe sepsis (Acute) Acute on chronic respiratory failure with hypoxia (Acute) COPD exacerbation (Acute) Bilateral pneumonia (Acute) Suspected 2018 novel coronavirus infection (Acute) Pneumonia of both lower lobes (Acute) Respiratory failure (Acute) Subjective: The patient was seen and examined at the bedside this morning. Events from the last 24 hours have been reviewed. The patient is currently afebrile, hemodynamically stable and maintaining appropriate oxygen saturations on 2 L/min via nasal cannula. Objective: The patient's most recent lab work, culture data and imaging studies have all been personally reviewed. Infectious work-up has been largely unrevealing to date. Surface echocardiogram dated October 20 revealed normal LV size with segmental dysfunction of the LV. Ejection fraction was estimated to be 35%. Pulmonary artery systolic pressure was estimated to be 47 mmHg. - Physical Exam Vitals/I&O's: Vital Signs Temp Pulse Resp BP Pulse Ox 98.2 F 80 18 109/73 98 10/27/19 11:10 10/27/19 11:10 10/27/19 11:10 10/27/19 11:10 10/27/19 11:10 Oxygen Flow Rate (L/min) [3] 4 Oxygen Flow Rate (L/min) [2] 4 Oxygen Flow Rate (L/min) [1 ( 4 Initial Baseline)] Oxygen Flow Rate (L/min) 2 Oxygen Delivery Method [3] Nasal Cannula Oxygen Delivery Method [2] Nasal Cannula Oxygen Delivery Method [1 ( Nasal Cannula Initial Baseline)] Oxygen Delivery Method Nasal Cannula Weight: 134 lb 14.766 oz Body Mass Index (BMI) 21.7 Intake and Output for Last 24 Hours 10/25/19 10/26/19 10/27/19 23:59 23:59 23:59 Intake Total 4244.37 / 4244.37 4451.15 / 4451.15 923.40 / 923.40 Output Total 200 / 200 Balance 4044.37 / 4044.37 4451.15 / 4451.15 923.40 / 923.40 General: Alert, No apparent distress HEENT: Atraumatic, Normocephalic Oral: No Gingival or Mucosal Lesions/ Ulcerations Neck: Supple, No Nodes, Trachea Midline Lungs: No rhonchi, No wheeze, No rales, Diminished Cardiovascular: Regular rate, Regular Rhythm, Normal S1, Normal S2, No murmurs Abdomen: Bowel Sounds Present, Soft, Non Tender Extremities: No clubbing, No cyanosis, No edema Skin: No breakdown Musculoskeletal: Cachexia Neurological: Neuro grossly intact Psych/Mental Status: Flat Affect Labs (Last 48 Hours) 10/24/19 10/25/19 10/25/19 06:28 06:00 06:00 WBC RBC Hgb Hct MCV MCH MCHC RDW Std Deviation RDW Coeff of [place] Plt Count Immature Gran % (Auto) Neut % (Auto) Lymph % (Auto) [place] % (Auto) Eos % (Auto) Baso % (Auto) Absolute Neuts (auto) Absolute Lymphs (auto) Nucleated RBC % Differential Comment Diff Path Review Toxic Vacuolation Platelet Estimate Plt Morphology Comment RBC Morphology Sodium Potassium Chloride Carbon Dioxide Anion Gap BUN Creatinine Estim Creat Clear Calc Est GFR (MDRD) Af Amer Est GFR (MDRD) Non-Af BUN/Creatinine Ratio Glucose Calcium Phosphorus Magnesium Total Bilirubin AST ALT Alkaline Phosphatase B-Natriuretic Peptide > 5000.0 H Total Protein Albumin Globulin Albumin/Globulin Ratio TSH 3.61 Vancomycin Trough Heparin-induced Plt Ab 0.084 POC Glucose 10/25/19 10/26/19 10/26/19 17:13 00:06 05:43 WBC RBC Hgb Hct MCV MCH MCHC RDW Std Deviation RDW Coeff of [place] Plt Count Immature Gran % (Auto) Neut % (Auto) Lymph % (Auto) [place] % (Auto) Eos % (Auto) Baso % (Auto) Absolute Neuts (auto) Absolute Lymphs (auto) Nucleated RBC % Differential Comment Diff Path Review Toxic Vacuolation Platelet Estimate Plt Morphology Comment RBC Morphology Sodium Potassium Chloride Carbon Dioxide Anion Gap BUN Creatinine Estim Creat Clear Calc Est GFR (MDRD) Af Amer Est GFR (MDRD) Non-Af BUN/Creatinine Ratio Glucose Calcium Phosphorus Magnesium Total Bilirubin AST ALT Alkaline Phosphatase B-Natriuretic Peptide Total Protein Albumin Globulin Albumin/Globulin Ratio TSH Vancomycin Trough Heparin-induced Plt Ab POC Glucose 286 H 291 H 300 H 10/26/19 10/26/19 10/26/19 06:10 06:10 11:42 WBC 19.3 H RBC 4.01 L Hgb 12.7 L Hct 38.5 L MCV 96.0 H MCH 31.7 MCHC 33.0 RDW Std Deviation 47.0 H RDW Coeff of [place] 13.8 Plt Count 35 L* Immature Gran % (Auto) 0.700 Neut % (Auto) 93.6 H Lymph % (Auto) 0.7 L [place] % (Auto) 4.8 Eos % (Auto) 0.1 Baso % (Auto) 0.1 Absolute Neuts (auto) 18.1 H Absolute Lymphs (auto) 0.14 L Nucleated RBC % 0.2 Differential Comment SCANNED Diff Path Review Reviewed Toxic Vacuolation 2+ Platelet Estimate MKD DEC Plt Morphology Comment LARGE RBC Morphology Sodium 143 Potassium 3.8 Chloride 115 H Carbon Dioxide 22.0 Anion Gap 6 BUN 26 H Creatinine 0.57 L Estim Creat Clear Calc 58.55 Est GFR (MDRD) Af Amer 183 Est GFR (MDRD) Non-Af 151 BUN/Creatinine Ratio 45.9 H Glucose 308 H Calcium 7.6 L Phosphorus Magnesium Total Bilirubin 2.50 H AST 67 H ALT 271 H Alkaline Phosphatase 122 H B-Natriuretic Peptide Total Protein 4.9 L Albumin 1.9 L Globulin 3.0 Albumin/Globulin Ratio 0.6 L TSH Vancomycin Trough Heparin-induced Plt Ab POC Glucose 266 H 10/26/19 10/26/19 10/27/19 18:02 23:35 01:53 WBC RBC Hgb Hct MCV MCH MCHC RDW Std Deviation RDW Coeff of [place] Plt Count Immature Gran % (Auto) Neut % (Auto) Lymph % (Auto) [place] % (Auto) Eos % (Auto) Baso % (Auto) Absolute Neuts (auto) Absolute Lymphs (auto) Nucleated RBC % Differential Comment Diff Path Review Toxic Vacuolation Platelet Estimate Plt Morphology Comment RBC Morphology Sodium Potassium Chloride Carbon Dioxide Anion Gap BUN Creatinine Estim Creat Clear Calc Est GFR (MDRD) Af Amer Est GFR (MDRD) Non-Af BUN/Creatinine Ratio Glucose Calcium Phosphorus Magnesium Total Bilirubin AST ALT Alkaline Phosphatase B-Natriuretic Peptide Total Protein Albumin Globulin Albumin/Globulin Ratio TSH Vancomycin Trough 8.6 Heparin-induced Plt Ab POC Glucose 149 H 181 H 10/27/19 10/27/19 10/27/19 05:03 06:18 06:18 WBC 15.4 H RBC 4.30 L Hgb 13.8 Hct 41.4 MCV 96.3 H MCH 32.1 H MCHC 33.3 RDW Std Deviation 46.3 H RDW Coeff of [place] 13.9 Plt Count 36 L* Immature Gran % (Auto) 1.100 H Neut % (Auto) 90.9 H Lymph % (Auto) 1.5 L [place] % (Auto) 5.2 Eos % (Auto) 1.2 Baso % (Auto) 0.1 Absolute Neuts (auto) 14.0 H Absolute Lymphs (auto) 0.23 L Nucleated RBC % 0.2 Differential Comment Diff Path Review May foll Toxic Vacuolation Platelet Estimate MKD DEC Plt Morphology Comment RBC Morphology NORM C+C Sodium 144 Potassium 3.1 L Chloride 107 Carbon Dioxide 29.0 Anion Gap 8 BUN 23 H Creatinine 0.53 L Estim Creat Clear Calc 58.65 Est GFR (MDRD) Af Amer 198 Est GFR (MDRD) Non-Af 164 BUN/Creatinine Ratio 43.6 H Glucose 138 H Calcium 8.0 L Phosphorus 2.0 L Magnesium 1.8 Total Bilirubin 2.20 H AST 57 H ALT 206 H Alkaline Phosphatase 120 H B-Natriuretic Peptide Total Protein 4.7 L Albumin 2.1 L Globulin 2.6 Albumin/Globulin Ratio 0.8 L TSH Vancomycin Trough Heparin-induced Plt Ab POC Glucose 132 H 10/27/19 11:16 WBC RBC Hgb Hct MCV MCH MCHC RDW Std Deviation RDW Coeff of [place] Plt Count Immature Gran % (Auto) Neut % (Auto) Lymph % (Auto) [place] % (Auto) Eos % (Auto) Baso % (Auto) Absolute Neuts (auto) Absolute Lymphs (auto) Nucleated RBC % Differential Comment Diff Path Review Toxic Vacuolation Platelet Estimate Plt Morphology Comment RBC Morphology Sodium Potassium Chloride Carbon Dioxide Anion Gap BUN Creatinine Estim Creat Clear Calc Est GFR (MDRD) Af Amer Est GFR (MDRD) Non-Af BUN/Creatinine Ratio Glucose Calcium Phosphorus Magnesium Total Bilirubin AST ALT Alkaline Phosphatase B-Natriuretic Peptide Total Protein Albumin Globulin Albumin/Globulin Ratio TSH Vancomycin Trough Heparin-induced Plt Ab POC Glucose 182 H Microbiology 10/25/19 12:50 Blood Culture (Wb) - Pic Blood Culture - Preliminary No growth in 48 hours. 10/25/19 10:35 Urine, Catheterized Urine Culture - Preliminary Culture exhibits no growth. Clinical Impression(s) from Imaging Studies Chest X-Ray 10/14/19 01:05 IMPRESSION: Bilateral lower lobe pneumonia. Electronically Signed: Temi Richards, at 1:29 EDT Tel , Service support , Chest X-Ray 10/14/19 02:02 IMPRESSION: Diffuse ill-defined opacities are seen more prominent in the perihilar regions and lung bases suggesting bilateral pneumonia or pulmonary edema. Electronically Signed: Temi Richards, at 4:03 EDT Tel , Service support , KUB X-Ray 10/14/19 02:40 IMPRESSION: An NG tube is seen with tip within the gastric lumen is in good position. Electronically Signed: Temi Richards, at 2:58 EDT Tel , Service support , Chest CTA 10/14/19 14:27 IMPRESSION: No demonstrated pulmonary embolism or arterial dissection. Bilateral pleural effusions associated with dependent consolidation within the lower lobes. Atherosclerosis. Electronically Signed: Kaila Nicole MD at 15:58 EDT Tel , Service support , Chest X-Ray 10/16/19 20:45 IMPRESSION: Continued severe interstitial and airspace infiltrates most pronounced in the lower right lung. Pneumonia is possible in the right lower lung. Small effusions are seen. Electronically Signed: Thaddeus Milton MD at 22:04 EDT , Service support , Liver Ultrasound 10/18/19 09:51 IMPRESSION: Normal right upper quadrant ultrasound examination. Electronically Signed: Flaco Gale, at 15:17 EDT , Service support , Chest X-Ray 10/18/19 10:50 IMPRESSION: Stable examination. Electronically Signed: Flaco Gale, at 11:58 EDT , Service support , Chest X-Ray 10/18/19 14:15 IMPRESSION: Status post left thoracentesis. There is no evidence of pneumothorax. Electronically Signed: Flaco Gale, at 15:16 EDT , Service support , Thoracentesis Ultrasound 10/18/19 14:47 IMPRESSION: Ultrasound-guided left thoracentesis. Electronically Signed: Flaco Gale, at 14:59 EDT , Service support , Brain CT 10/19/19 08:23 IMPRESSION: Chronic involutional changes of the brain. Vascular clip is seen in the left [place] suggestion of prior clipping of an aneurysm. Electronically Signed: Flaco Gale, at 11:30 EDT , Service support , Thoracentesis Ultrasound 10/20/19 01:30 IMPRESSION: Successful ultrasound-guided left thoracentesis. Electronically Signed: Temi Richards, at 10:46 EDT Tel , Service support , Chest X-Ray 10/20/19 10:59 IMPRESSION: Markedly decreased right pleural effusion. Resolved left pleural effusion. There is no evidence of pneumothorax. Electronically Signed: Temi Richards at 12:11 EDT Tel , Service support , Chest X-Ray 10/24/19 05:55 IMPRESSION: Stable examination. Electronically Signed: Flaco Gale, at 8:50 EDT , Service support , Abdomen/Pelvis CT 10/25/19 08:21 IMPRESSION: Right pleural effusion with scarring at the right lung base. Small amount of right perihepatic fluid and small amount of free intraperitoneal air. Infrarenal fusiform abdominal aortic aneurysm with a transverse dimension of 5.1 cm. Large amount of fecal material is seen in the rectosigmoid colon. Electronically Signed: Flaco Gale, at 13:07 EDT , Service support , Brain CT 10/25/19 09:08 IMPRESSION: Chronic involutional changes of the brain. Vascular clip is seen along the left side of the [place] in keeping with prior aneurysmal clipping. Electronically Signed: Flaco Gale, at 10:39 EDT , Service support , Chest CT 10/25/19 09:08 IMPRESSION: Bilateral pleural effusions right greater than left with bibasilar atelectasis and/or infiltrate. This is superimposed on chronic emphysematous changes with bullous formation and honeycombing at the right lung base. Electronically Signed: Flaco Gale, at 10:46 EDT , Service support , Current Medications Acetaminophen (Tylenol) 650 mg PO Q6H PRN PRN PRN Reason: Pain Score 1-10/Temp > 100.7 F Albuterol Sulfate (Ventolin Aerosols) 2.5 mg INHALATION Q2H PRN PRN PRN Reason: Dyspnea, wheezing Last Admin: 10/16/19 14:35 Dose: 2.5 mg Documented by: Albuterol/Ipratropium (Duoneb) 3 ml INHALATION Q4HWA.RT [place] Last Admin: 10/27/19 10:36 Dose: 3 ml Documented by: Calamine/Phenol (Calmoseptine Ointment) 1 applic TOPICAL BID [place]; Protocol Last Admin: 10/27/19 09:31 Dose: 1 applicatio Documented by: Dextrose (D50w Syringe) 0 gm IV X1 PRN; Protocol PRN Reason: Hypoglycemia Furosemide (Lasix) 40 mg IV BID@1000,1800 [place] Last Admin: 10/27/19 09:30 Dose: 40 mg Documented by: Glucagon () 1 mg IM .X1 PRN PRN Reason: Hypoglycemia Guaifenesin (Robitussin) 10 ml PO Q4H PRN PRN PRN Reason: COUGH Hydralazine HCl (Apresoline Iv) 5 mg IV Q4H PRN PRN PRN Reason: BLOOD PRESSURE Last Admin: 10/24/19 16:23 Dose: 5 mg Documented by: Sodium Chloride () 250 mls @ 15 mls/hr IV .[id number] PRN PRN Reason: Saline Flush Last Infusion: 10/27/19 09:20 Dose: 0 mls/hr Documented by: Sodium Chloride () 250 mls @ 15 mls/hr IV .[id number] PRN PRN Reason: Additional IVPB Infusion Vancomycin IV Pharmacy to Dose (1 ea/ Sodium Chloride) 500 mls @ 250 mls/hr IV PRN PRN; Protocol PRN Reason: Rx to Dose Levofloxacin (Levaquin Iv) 750 mg in 150 mls @ 100 mls/hr IV Q24 [facility] Last Infusion: 10/27/19 11:07 Dose: Infused Documented by: Metronidazole (Flagyl) 500 mg in 100 mls @ 100 mls/hr IV Q8 [facility] Last Infusion: 10/27/19 06:15 Dose: Infused Documented by: Pantoprazole Sodium 40 mg/ (Sodium Chloride) 110 mls @ 330 mls/hr IV Q12 [facility] Last Infusion: 10/27/19 10:24 Dose: Infused Documented by: Multivitamins 10 ml/ Chromium/Copper/Manganese/Seleni/Zn 1 ml/ Folic Acid 1 mg/ Amino Acids/Electrolytes 2,011 mls @ 42 mls/hr IV .Q24H [facility] Stop: 10/27/19 15:47 Last Infusion: 10/26/19 23:00 Dose: 42 mls/hr Documented by: Vancomycin HCl (Vancomycin) 1,000 mg in 200 mls @ 200 mls/hr IV Q12H [facility] Last Infusion: 10/27/19 10:41 Dose: Infused Documented by: Multivitamins 10 ml/ Chromium/Copper/Manganese/Seleni/Zn 1 ml/ Folic Acid 1 mg/ Amino Acids/Electrolytes 2,011 mls @ 84 mls/hr IV .[id number] [facility] Stop: 10/28/19 15:48 Insulin Human Lispro (Humalog Kwikpen (Bkc)) 0 unit SC Q6 [facility]; Protocol Last Admin: 10/27/19 11:19 Dose: 3 units Documented by: Labetalol HCl (Trandate) 10 mg IV Q4H [facility] Last Admin: 10/27/19 11:18 Dose: Not Given Documented by: Morphine Sulfate () 2 mg IV Q2H PRN PRN PRN Reason: Pain Score 6-10/10 Last Admin: 10/26/19 00:22 Dose: 2 mg Documented by: Nitroglycerin (Nitrostat) 0.4 mg SUBLINGUAL Q5M PRN PRN Reason: CARDIAC/CHEST PAIN Senna/Docusate Sodium (Senokot-S, Ami-Colace) 2 tablet PO BID PRN PRN PRN Reason: Constipation Sodium Chloride () 10 - 40 ml IV UD PRN PRN Reason: SALINE FLUSH Last Admin: 10/27/19 09:31 Dose: 10 ml Documented by: Medical Necessity - Tobacco Use Smoking Status: Former smoker Tobacco Use: Non-smoker Assessment/Plan All Active Problems (Last Reviewed 07/15/18 @ 16:45 by April Hyatt) Thrombocytopenia (Acute) Severe sepsis (Acute) Acute on chronic respiratory failure with hypoxia (Acute) COPD exacerbation (Acute) Bilateral pneumonia (Acute) Suspected 2018 novel coronavirus infection (Acute) Pneumonia of both lower lobes (Acute) Respiratory failure (Acute) Bronchitis (Acute) URI (upper respiratory infection) (Acute) Sinusitis, acute maxillary (Acute) RECOMMENDATIONS: 1. Continue to wean supplemental oxygen to maintain saturations at or above 90%. 2. Continue diuretic therapy as tolerated by renal function. 3. Electrolyte repletion. 4. Encourage incentive spirometer use and mobilize patient as tolerated. 5. Continue antimicrobials per ID recommendations. 6. Will sign off from a critical care/pulmonary perspective. Please call with any additional questions. IMPRESSIONS: 1. Acute hypoxemic respiratory failure Likely secondary to COPD with exacerbation precipitated by bilateral lower lobe pneumonia. COVID testing was negative. The patient improved with supportive measures including invasive mechanical ventilatory support, antimicrobials, bronchodilators and steroids. He was able to be extubated on the morning of October 14. His oxygen will be weaned to maintain saturations at or above 90%. Encourage incentive spirometer use and mobilize patient as tolerated. CT chest obtained this morning did reveal evidence of bilateral pleural effusions. I do suspect that the patient's bilateral pleural effusions are likely related to decompensated heart failure in the setting of hypervolemia and depressed ejection fraction noted on his last echocardiogram. Patient is improving from a respiratory perspective in the setting of diuresis. Plan to continue IV Lasix as tolerated. 2. Encephalopathy Improving. Unclear precipitating etiology. CT head was negative. Concern for new underlying infectious process that may be contributing to the patient's encephalopathic state. 3. Coronary artery disease status post CABG Continue outpatient cardiac medication regimen. 4. Chronic alcohol dependency/chronic pain syndrome/anxiety/depression/hypertension/hyperlipidemia Complicates care, management, recovery and prognosis. Continue home medications as indicated. This note was generated with [employer] ([employer]) dictation software. It may contain incorrect words, spelling, and punctuation that were not noted in checking the note before signing. Inpatient E&M: 21982 Subs Hosp L2
--- NOTE | 2019-10-27 13:07 | PN.RENAL_ITS ---
Patient Problems: Active and Suspected Problems (Last Reviewed 07/15/18 @ 16:45 by April Hyatt) Severe sepsis (Acute) Acute on chronic respiratory failure with hypoxia (Acute) COPD exacerbation (Acute) Bilateral pneumonia (Acute) Suspected 2019 novel coronavirus infection (Acute) Pneumonia of both lower lobes (Acute) Respiratory failure (Acute) Subjective: more awake, speaking more clearly. Complains of thirst, wants water - Physical Exam Vitals/I&O's: Vital Signs Temp Pulse Resp BP Pulse Ox 98.2 F 80 18 109/73 98 10/27/19 11:10 10/27/19 11:10 10/27/19 11:10 10/27/19 11:10 10/27/19 11:10 Oxygen Flow Rate (L/min) [3] 4 Oxygen Flow Rate (L/min) [2] 4 Oxygen Flow Rate (L/min) [1 ( 4 Initial Baseline)] Oxygen Flow Rate (L/min) 2 Oxygen Delivery Method [3] Nasal Cannula Oxygen Delivery Method [2] Nasal Cannula Oxygen Delivery Method [1 ( Nasal Cannula Initial Baseline)] Oxygen Delivery Method Nasal Cannula Weight: 61.2 kg Body Mass Index (BMI) 21.7 Intake and Output for Last 24 Hours 10/25/19 10/26/19 10/27/19 23:59 23:59 23:59 Intake Total 4244.37 / 4244.37 4451.15 / 4451.15 923.40 / 923.40 Output Total 200 / 200 Balance 4044.37 / 4044.37 4451.15 / 4451.15 923.40 / 923.40 General: Alert Lungs: Clear to auscultation Cardiovascular: Regular rate Extremities: No edema Microbiology Past 72 Hours 10/25/19 12:50 Blood Culture (Wb) - Pic Blood Culture - Preliminary No growth in 48 hours. 10/25/19 10:35 Urine, Catheterized Urine Culture - Preliminary Culture exhibits no growth. Laboratory Results 10/26/19 18:02: POC Glucose 149 H 10/26/19 23:35: Vancomycin Trough 8.6 10/27/19 01:53: POC Glucose 181 H 10/27/19 05:03: POC Glucose 132 H 10/27/19 06:18: WBC 15.4 H, RBC 4.30 L, Hgb 13.8, Hct 41.4, MCV 96.3 H, MCH 32.1 H, MCHC 33.3, RDW Std Deviation 46.3 H, RDW Coeff of Xenia 13.9, Plt Count 36 L*, Immature Gran % (Auto) 1.100 H, Neut % (Auto) 90.9 H, Lymph % (Auto) 1.5 L, [place] % (Auto) 5.2, Eos % (Auto) 1.2, Baso % (Auto) 0.1, Absolute Neuts (auto) 14.0 H, Absolute Lymphs (auto) 0.23 L, Nucleated RBC % 0.2, Differential Comment , Diff Path Review November, Platelet Estimate MKD DEC, RBC Morphology NORM C+C 10/27/19 06:18: Sodium 144, Potassium 3.1 L, Chloride 107, Carbon Dioxide 29.0, Anion Gap 8, BUN 23 H, Creatinine 0.53 L, Estim Creat Clear Calc 58.65, Est GFR (MDRD) Af Amer 198, Est GFR (MDRD) Non-Af 164, BUN/Creatinine Ratio 43.6 H, Glucose 138 H, Calcium 8.0 L, Phosphorus 2.0 L, Magnesium 1.8, Total Bilirubin 2.20 H, AST 57 H, ALT 206 H, Alkaline Phosphatase 120 H, Total Protein 4.7 L, Albumin 2.1 L, Globulin 2.6, Albumin/Globulin Ratio 0.8 L 10/27/19 11:16: POC Glucose 182 H Current Medications Acetaminophen (Tylenol) 650 mg PO Q6H PRN PRN PRN Reason: Pain Score 1-10/Temp > 100.7 F Albuterol Sulfate (Ventolin Aerosols) 2.5 mg INHALATION Q2H PRN PRN PRN Reason: Dyspnea, wheezing Last Admin: 10/16/19 14:35 Dose: 2.5 mg Documented by: Albuterol/Ipratropium (Duoneb) 3 ml INHALATION Q4HWA.RT [facility] Last Admin: 10/27/19 10:36 Dose: 3 ml Documented by: Calamine/Phenol (Calmoseptine Ointment) 1 applic TOPICAL BID [facility]; Protocol Last Admin: 10/27/19 09:31 Dose: 1 applicatio Documented by: Dextrose (D50w Syringe) 0 gm IV X1 PRN; Protocol PRN Reason: Hypoglycemia Furosemide (Lasix) 40 mg IV BID@1000,1800 [facility] Last Admin: 10/27/19 09:30 Dose: 40 mg Documented by: Glucagon () 1 mg IM .X1 PRN PRN Reason: Hypoglycemia Guaifenesin (Robitussin) 10 ml PO Q4H PRN PRN PRN Reason: COUGH Hydralazine HCl (Apresoline Iv) 5 mg IV Q4H PRN PRN PRN Reason: BLOOD PRESSURE Last Admin: 10/24/19 16:23 Dose: 5 mg Documented by: Sodium Chloride () 250 mls @ 15 mls/hr IV .[id number] PRN PRN Reason: Saline Flush Last Infusion: 10/27/19 09:20 Dose: 0 mls/hr Documented by: Sodium Chloride () 250 mls @ 15 mls/hr IV .[id number] PRN PRN Reason: Additional IVPB Infusion Vancomycin IV Pharmacy to Dose (1 ea/ Sodium Chloride) 500 mls @ 250 mls/hr IV PRN PRN; Protocol PRN Reason: Rx to Dose Levofloxacin (Levaquin Iv) 750 mg in 150 mls @ 100 mls/hr IV Q24 [facility] Last Infusion: 10/27/19 11:07 Dose: Infused Documented by: Metronidazole (Flagyl) 500 mg in 100 mls @ 100 mls/hr IV Q8 [facility] Last Infusion: 10/27/19 06:15 Dose: Infused Documented by: Pantoprazole Sodium 40 mg/ (Sodium Chloride) 110 mls @ 330 mls/hr IV Q12 [facility] Last Infusion: 10/27/19 10:24 Dose: Infused Documented by: Multivitamins 10 ml/ Chromium/Copper/Manganese/Seleni/Zn 1 ml/ Folic Acid 1 mg/ Amino Acids/Electrolytes 2,011 mls @ 42 mls/hr IV .Q24H [facility] Stop: 10/27/19 15:47 Last Infusion: 10/26/19 23:00 Dose: 42 mls/hr Documented by: Vancomycin HCl (Vancomycin) 1,000 mg in 200 mls @ 200 mls/hr IV Q12H [facility] Last Infusion: 10/27/19 10:41 Dose: Infused Documented by: Multivitamins 10 ml/ Chromium/Copper/Manganese/Seleni/Zn 1 ml/ Folic Acid 1 mg/ Amino Acids/Electrolytes 2,011 mls @ 84 mls/hr IV .[id number] [facility] Stop: 10/28/19 15:48 Insulin Human Lispro (Humalog Kwikpen (Bkc)) 0 unit SC Q6 [facility]; Protocol Last Admin: 10/27/19 11:19 Dose: 3 units Documented by: Labetalol HCl (Trandate) 10 mg IV Q4H [facility] Last Admin: 10/27/19 11:18 Dose: Not Given Documented by: Morphine Sulfate () 2 mg IV Q2H PRN PRN PRN Reason: Pain Score 6-10/10 Last Admin: 10/26/19 00:22 Dose: 2 mg Documented by: Nitroglycerin (Nitrostat) 0.4 mg SUBLINGUAL Q5M PRN PRN Reason: CARDIAC/CHEST PAIN Senna/Docusate Sodium (Senokot-S, Ami-Colace) 2 tablet PO BID PRN PRN PRN Reason: Constipation Sodium Chloride () 10 - 40 ml IV UD PRN PRN Reason: SALINE FLUSH Last Admin: 10/27/19 09:31 Dose: 10 ml Documented by: Medical Necessity - Tobacco Use Smoking Status: Former smoker Tobacco Use: Non-smoker Assessment/Plan All Active Problems (Last Reviewed 07/15/18 @ 16:45 by April Hyatt) Thrombocytopenia (Acute) Severe sepsis (Acute) Acute on chronic respiratory failure with hypoxia (Acute) COPD exacerbation (Acute) Bilateral pneumonia (Acute) Suspected 2018 novel coronavirus infection (Acute) Pneumonia of both lower lobes (Acute) Respiratory failure (Acute) Bronchitis (Acute) URI (upper respiratory infection) (Acute) Sinusitis, acute maxillary (Acute) 1. hypernatremia stable on TPN. Currently on lasix iv bid. Complains of thirst. Consider decreasing lasix dose. Oxygenation volume status stable. 2. Sepsis syndrome with elevated liver enzymes, thrombocytopenia, leukocytosis. 3. Bilateral lobar pneumonia status post acute respiratory failure on iv antibx 4. Altered mental status improved today primary service
[2019-10-27] MEDS: Potassium Chloride 10mEq/100mL 10 MEQ/100 ML IV.SOLN. 100 MEQ IV BOLUS ×4 (15:48→19:27)
[2019-10-27 17:20] LABS: Bedside Glucose 165 mg/dL (70-110)
[2019-10-28] VITALS (9 sets, daily range): BP systolic 95–104; BP diastolic 59–68; PULSE 79–94; RESP 18–20; TEMP 36.7–36.8; O2SAT 96–99
[2019-10-28 00:50] LABS: Bedside Glucose 179 mg/dL (70-110)
[2019-10-28] MEDS: metroNIDAZOLE 500 MG/100 ML BAG 100 MG IV ×2 (05:42→13:50)
[2019-10-28] MEDS: Insulin Lispro 100 UNIT/ML INSULN.PEN SC ×2 (05:47→12:35)
[2019-10-28 05:51] LABS: Bedside Glucose 165 mg/dL (70-110)
[2019-10-28] MEDS: Ipratropium/Albuterol Sulfate 3 ML AMPUL.NEB INHALATION ×2 (07:06→10:39)
[2019-10-28 07:12] LABS: Hematocrit 39.1 % (40-54); Hemoglobin 13.2 g/dL (13.0-16.5); Mean Corp Hgb Conc 33.8 g/dL (32-36); Mean Corpuscular Hgb 32.4 pg (27.0-32.0); Mean Corpuscular Volume 96.1 fL (80-94); POSITIVE COUNT YES; POSITIVE MORPHOLOGY YES; RBC Distribution Width CV 14.1 % (11.6-14.6); RBC Distribution Width SD 46.4 fl (35.1-43.9); Red Blood Count 4.07 M/mm3 (4.6-6.2); White Blood Count 10.9 K/mm3 (4.4-11.0)
[2019-10-28 07:13] LABS: Platelet Count 41 K/mm3 (150-450); Scan Indicated on CBC? Y/N YES- FLAGS NOTED
[2019-10-28 07:35] LABS: Differential Comment SCANNED
[2019-10-28 07:39] LABS: ALB/GLOB Ratio 0.8 RATIO (0.9-2.4); AST(SGOT) 47 U/L (15-37); Alanine Aminotransfer ALT/SGPT 150 U/L (16-61); Alkaline Phosphatase 98 U/L (45-117); Anion Gap 5 (5-15); BUN 24 mg/dL (7-18); BUN/Creat Ratio 49.1 RATIO (10-20); Calcium,Total 7.7 mg/dL (8.5-10.1); Chloride 105 mmol/L (98-107); Creatinine, Serum 0.49 mg/dL (0.70-1.30); EST Glomerular Filtration Rate 179 mL/min (>60); Est Glom Filt Rate - Afr Amer 216 mL/min (>60); Estimated Creatinine Clearance 58.27 ml/min; Globulin 2.5 g/dL (2.2-4.2); Glucose 165 mg/dL (74-106); Potassium 3.5 mmol/L (3.5-5.1); Protein, Total 4.5 g/dL (6.4-8.2); Sodium Level 138 mmol/L (136-145)
[2019-10-28] MEDS: Menthol/Lanolin/Calamine/Znox 113 GM Tube 1 APPLIC TOPICAL (08:03)
[2019-10-28] MEDS: Furosemide 20 MG/2 ML VIAL IV (08:03)
[2019-10-28] MEDS: 0.9% Saline Lock 10 ML Syringe IV (08:07)
--- NOTE | 2019-10-28 08:57 | PCM.PN.SRG ---
Patient Problems: Active and Suspected Problems (Last Reviewed 07/15/18 @ 16:45 by April Hyatt) Severe sepsis (Acute) Acute on chronic respiratory failure with hypoxia (Acute) COPD exacerbation (Acute) Bilateral pneumonia (Acute) Suspected 2019 novel coronavirus infection (Acute) Pneumonia of both lower lobes (Acute) Respiratory failure (Acute) Subjective: Patient is much more awake today, denies abdominal pain, white blood count within normal limits, having bowel movements - Physical Exam Vitals/I&O's: Vital Signs Temp Pulse Resp BP Pulse Ox 98.0 F 81 20 H 95/59 L 98 10/28/19 03:30 10/28/19 07:07 10/28/19 07:07 10/28/19 03:30 10/28/19 07:07 Oxygen Flow Rate (L/min) [3] 4 Oxygen Flow Rate (L/min) [2] 4 Oxygen Flow Rate (L/min) [1 ( 4 Initial Baseline)] Oxygen Flow Rate (L/min) 2 Oxygen Delivery Method [3] Nasal Cannula Oxygen Delivery Method [2] Nasal Cannula Oxygen Delivery Method [1 ( Nasal Cannula Initial Baseline)] Oxygen Delivery Method Room Air Weight: 134 lb 0.657 oz Body Mass Index (BMI) 21.7 Intake and Output for Last 24 Hours 10/26/19 10/27/19 10/28/19 23:59 23:59 23:59 Intake Total 4451.15 / 4451.15 2673.65 / 2673.65 391.5 / 391.5 Balance 4451.15 / 4451.15 2673.65 / 2673.65 391.5 / 391.5 General: Alert, Cooperative, No apparent distress Cardiovascular: Regular Rhythm Abdomen: Soft, Non Tender, Non-Distended Microbiology Past 72 Hours 10/25/19 10:35 Urine, Catheterized Urine Culture - Final Culture exhibits no growth. 10/25/19 12:50 Blood Culture (Wb) - Pic Blood Culture - Preliminary No growth in 48 hours. Laboratory Results 10/27/19 11:16: POC Glucose 182 H 10/27/19 17:09: POC Glucose 165 H 10/27/19 23:55: POC Glucose 179 H 10/28/19 05:45: POC Glucose 165 H 10/28/19 07:00: WBC 10.9, RBC 4.07 L, Hgb 13.2, Hct 39.1 L, MCV 96.1 H, MCH 32.4 H, MCHC 33.8, RDW Std Deviation 46.4 H, RDW Coeff of Xenia 14.1, Plt Count 41 L*, Differential Comment SCANNED, Diff Path Review November10/28/19 07:00: Sodium 138, Potassium 3.5, Chloride 105, Carbon Dioxide 28.0, Anion Gap 5, BUN 24 H, Creatinine 0.49 L, Estim Creat Clear Calc 58.27, Est GFR (MDRD) Af Amer 216, Est GFR (MDRD) Non-Af 179, BUN/Creatinine Ratio 49.1 H, Glucose 165 H, Calcium 7.7 L, Total Bilirubin 2.10 H, AST 47 H, ALT 150 H, Alkaline Phosphatase 98, Total Protein 4.5 L, Albumin 2.0 L, Globulin 2.5, Albumin/Globulin Ratio 0.8 L Current Medications Acetaminophen (Tylenol) 650 mg PO Q6H PRN PRN PRN Reason: Pain Score 1-10/Temp > 100.7 F Albuterol Sulfate (Ventolin Aerosols) 2.5 mg INHALATION Q2H PRN PRN PRN Reason: Dyspnea, wheezing Last Admin: 10/16/19 14:35 Dose: 2.5 mg Documented by: Albuterol/Ipratropium (Duoneb) 3 ml INHALATION Q4HWA.RT [facility] Last Admin: 10/28/19 07:06 Dose: 3 ml Documented by: Calamine/Phenol (Calmoseptine Ointment) 1 applic TOPICAL BID [facility]; Protocol Last Admin: 10/28/19 08:03 Dose: 1 applicatio Documented by: Dextrose (D50w Syringe) 0 gm IV X1 PRN; Protocol PRN Reason: Hypoglycemia Furosemide (Lasix) 20 mg IV DAILY [facility] Last Admin: 10/28/19 08:03 Dose: 20 mg Documented by: Glucagon () 1 mg IM .X1 PRN PRN Reason: Hypoglycemia Guaifenesin (Robitussin) 10 ml PO Q4H PRN PRN PRN Reason: COUGH Hydralazine HCl (Apresoline Iv) 5 mg IV Q4H PRN PRN PRN Reason: BLOOD PRESSURE Last Admin: 10/24/19 16:23 Dose: 5 mg Documented by: Sodium Chloride () 250 mls @ 15 mls/hr IV .[id number] PRN PRN Reason: Saline Flush Last Infusion: 10/28/19 06:42 Dose: 15 mls/hr Documented by: Sodium Chloride () 250 mls @ 15 mls/hr IV .[id number] PRN PRN Reason: Additional IVPB Infusion Vancomycin IV Pharmacy to Dose (1 ea/ Sodium Chloride) 500 mls @ 250 mls/hr IV PRN PRN; Protocol PRN Reason: Rx to Dose Levofloxacin (Levaquin Iv) 750 mg in 150 mls @ 100 mls/hr IV Q24 [facility] Last Infusion: 10/27/19 11:07 Dose: Infused Documented by: Metronidazole (Flagyl) 500 mg in 100 mls @ 100 mls/hr IV Q8 [facility] Last Infusion: 10/28/19 06:42 Dose: Infused Documented by: Pantoprazole Sodium 40 mg/ (Sodium Chloride) 110 mls @ 330 mls/hr IV Q12 [facility] Last Infusion: 10/28/19 08:33 Dose: Infused Documented by: Vancomycin HCl (Vancomycin) 1,000 mg in 200 mls @ 200 mls/hr IV Q12H [facility] Last Infusion: 10/27/19 22:50 Dose: Infused Documented by: Multivitamins 10 ml/ Chromium/Copper/Manganese/Seleni/Zn 1 ml/ Folic Acid 1 mg/ Amino Acids/Electrolytes 2,011 mls @ 84 mls/hr IV .[id number] [facility] Stop: 10/28/19 15:48 Last Admin: 10/27/19 15:54 Dose: 84 mls/hr Documented by: Insulin Human Lispro (Humalog Sergepen (Bkc)) 0 unit SC Q6 [facility]; Protocol Last Admin: 10/28/19 05:47 Dose: 3 units Documented by: Labetalol HCl (Trandate) 10 mg IV Q4H [facility] Last Admin: 10/28/19 08:02 Dose: 10 mg Documented by: Morphine Sulfate () 2 mg IV Q2H PRN PRN PRN Reason: Pain Score 6-10/10 Last Admin: 10/26/19 00:22 Dose: 2 mg Documented by: Nitroglycerin (Nitrostat) 0.4 mg SUBLINGUAL Q5M PRN PRN Reason: CARDIAC/CHEST PAIN Senna/Docusate Sodium (Senokot-S, Ami-Colace) 2 tablet PO BID PRN PRN PRN Reason: Constipation Sodium Chloride () 10 - 40 ml IV UD PRN PRN Reason: SALINE FLUSH Last Admin: 10/28/19 08:07 Dose: 40 ml Documented by: Medical Necessity - Tobacco Use Smoking Status: Former smoker Tobacco Use: Non-smoker Assessment/Plan All Active Problems (Last Reviewed 07/15/18 @ 16:45 by April Hyatt) Thrombocytopenia (Acute) Severe sepsis (Acute) Acute on chronic respiratory failure with hypoxia (Acute) COPD exacerbation (Acute) Bilateral pneumonia (Acute) Suspected 2018 novel coronavirus infection (Acute) Pneumonia of both lower lobes (Acute) Respiratory failure (Acute) Bronchitis (Acute) URI (upper respiratory infection) (Acute) Sinusitis, acute maxillary (Acute) 69-year-old male with pneumonia admitted since 10/14 initially was in the ICU currently on 2 L nasal cannula but has been encephalopathic since admission-much improved, CT abdomen pelvis small mild pneumoperitoneum and small amount of free fluid in the abdomen, 1. Pt is still denying abdominal pain and is more alert today. Platelets 41--no plans for surgery here. Pt WBC is 10.9 --IV abx per ID. Adelina Bran M.D. Pager: [phone] [facility] [address] [place] [address], [facility]patient [facility], [address] [place] [address] Office: [phone] Inpatient E&M: [id number] [facility] L1
[2019-10-28] MEDS: Vancomycin IV 1,000 MG/200 ML BAG 200 MG IV (08:59)
[2019-10-28] MEDS: levoFLOXacin IV 750 MG/150 ML BAG 100 MG IV (10:33)
[2019-10-28 10:53] LABS: Pathologist Review Reviewed
[2019-10-28 12:41] LABS: Bedside Glucose 187 mg/dL (70-110)
--- NOTE | 2019-10-28 13:02 | PCM.PN.ID ---
Patient Problems: Active and Suspected Problems (Last Reviewed 07/15/18 @ 16:45 by April Hyatt) Severe sepsis (Acute) Acute on chronic respiratory failure with hypoxia (Acute) COPD exacerbation (Acute) Bilateral pneumonia (Acute) Suspected 2019 novel coronavirus infection (Acute) Pneumonia of both lower lobes (Acute) Respiratory failure (Acute) Subjective: Feeling better, no abd pain, no fever - Physical Exam Vitals/I&O's: Vital Signs Temp Pulse Resp BP Pulse Ox 98.0 F 92 18 101/68 99 10/28/19 12:27 10/28/19 12:27 10/28/19 12:27 10/28/19 12:27 10/28/19 12:27 Oxygen Flow Rate (L/min) [3] 4 Oxygen Flow Rate (L/min) [2] 4 Oxygen Flow Rate (L/min) [1 ( 4 Initial Baseline)] Oxygen Flow Rate (L/min) 2 Oxygen Delivery Method [3] Nasal Cannula Oxygen Delivery Method [2] Nasal Cannula Oxygen Delivery Method [1 ( Nasal Cannula Initial Baseline)] Oxygen Delivery Method Room Air Weight: 60.8 kg Body Mass Index (BMI) 21.7 Intake and Output for Last 24 Hours 10/26/19 10/27/19 10/28/19 23:59 23:59 23:59 Intake Total 4451.15 / 4451.15 2673.65 / 2673.65 626.50 / 626.50 Balance 4451.15 / 4451.15 2673.65 / 2673.65 626.50 / 626.50 General: Alert, Cooperative, No apparent distress Lungs: Clear to auscultation, Normal air movement Cardiovascular: Regular rate, Regular Rhythm Abdomen: Soft, Non Tender, Non-Distended Skin: No rashes Microbiology Past 72 Hours 10/25/19 10:35 Urine, Catheterized Urine Culture - Final Culture exhibits no growth. 10/25/19 12:50 Blood Culture (Wb) - Pic Blood Culture - Preliminary No growth in 48 hours. Laboratory Results 10/27/19 06:18: Diff Path Review Reviewed 10/27/19 17:09: POC Glucose 165 H 10/27/19 23:55: POC Glucose 179 H 10/28/19 05:45: POC Glucose 165 H 10/28/19 07:00: WBC 10.9, RBC 4.07 L, Hgb 13.2, Hct 39.1 L, MCV 96.1 H, MCH 32.4 H, MCHC 33.8, RDW Std Deviation 46.4 H, RDW Coeff of Xenia 14.1, Plt Count 41 L*, Differential Comment SCANNED, Diff Path Review November10/28/19 07:00: Sodium 138, Potassium 3.5, Chloride 105, Carbon Dioxide 28.0, Anion Gap 5, BUN 24 H, Creatinine 0.49 L, Estim Creat Clear Calc 58.27, Est GFR (MDRD) Af Amer 216, Est GFR (MDRD) Non-Af 179, BUN/Creatinine Ratio 49.1 H, Glucose 165 H, Calcium 7.7 L, Total Bilirubin 2.10 H, AST 47 H, ALT 150 H, Alkaline Phosphatase 98, Total Protein 4.5 L, Albumin 2.0 L, Globulin 2.5, Albumin/Globulin Ratio 0.8 L 10/28/19 12:32: POC Glucose 187 H Current Medications Acetaminophen (Tylenol) 650 mg PO Q6H PRN PRN PRN Reason: Pain Score 1-10/Temp > 100.7 F Albuterol Sulfate (Ventolin Aerosols) 2.5 mg INHALATION Q2H PRN PRN PRN Reason: Dyspnea, wheezing Last Admin: 10/16/19 14:35 Dose: 2.5 mg Documented by: Albuterol/Ipratropium (Duoneb) 3 ml INHALATION Q4HWA.RT [facility] Last Admin: 10/28/19 10:39 Dose: 3 ml Documented by: Calamine/Phenol (Calmoseptine Ointment) 1 applic TOPICAL BID [facility]; Protocol Last Admin: 10/28/19 08:03 Dose: 1 applicatio Documented by: Dextrose (D50w Syringe) 0 gm IV X1 PRN; Protocol PRN Reason: Hypoglycemia Furosemide (Lasix) 20 mg IV DAILY [facility] Last Admin: 10/28/19 08:03 Dose: 20 mg Documented by: Glucagon () 1 mg IM .X1 PRN PRN Reason: Hypoglycemia Guaifenesin (Robitussin) 10 ml PO Q4H PRN PRN PRN Reason: COUGH Hydralazine HCl (Apresoline Iv) 5 mg IV Q4H PRN PRN PRN Reason: BLOOD PRESSURE Last Admin: 10/24/19 16:23 Dose: 5 mg Documented by: Sodium Chloride () 250 mls @ 15 mls/hr IV .[id number] PRN PRN Reason: Saline Flush Last Infusion: 10/28/19 09:02 Dose: 0 mls/hr Documented by: Sodium Chloride () 250 mls @ 15 mls/hr IV .[id number] PRN PRN Reason: Additional IVPB Infusion Levofloxacin (Levaquin Iv) 750 mg in 150 mls @ 100 mls/hr IV Q24 [facility] Last Admin: 10/28/19 10:33 Dose: 100 mls/hr Documented by: Metronidazole (Flagyl) 500 mg in 100 mls @ 100 mls/hr IV Q8 [facility] Last Infusion: 10/28/19 06:42 Dose: Infused Documented by: Pantoprazole Sodium 40 mg/ (Sodium Chloride) 110 mls @ 330 mls/hr IV Q12 [facility] Last Infusion: 10/28/19 08:33 Dose: Infused Documented by: Multivitamins 10 ml/ Chromium/Copper/Manganese/Seleni/Zn 1 ml/ Folic Acid 1 mg/ Amino Acids/Electrolytes 2,011 mls @ 84 mls/hr IV .[id number] [facility] Stop: 10/28/19 15:48 Last Admin: 10/27/19 15:54 Dose: 84 mls/hr Documented by: Insulin Human Lispro (Humalog Kwikpen (Bkc)) 0 unit SC Q6 [facility]; Protocol Last Admin: 10/28/19 12:35 Dose: 3 units Documented by: Labetalol HCl (Trandate) 10 mg IV Q4H [facility] Last Admin: 10/28/19 12:27 Dose: Not Given Documented by: Morphine Sulfate () 2 mg IV Q2H PRN PRN PRN Reason: Pain Score 6-10/10 Last Admin: 10/26/19 00:22 Dose: 2 mg Documented by: Nitroglycerin (Nitrostat) 0.4 mg SUBLINGUAL Q5M PRN PRN Reason: CARDIAC/CHEST PAIN Senna/Docusate Sodium (Senokot-S, Ami-Colace) 2 tablet PO BID PRN PRN PRN Reason: Constipation Sodium Chloride () 10 - 40 ml IV UD PRN PRN Reason: SALINE FLUSH Last Admin: 10/28/19 08:07 Dose: 40 ml Documented by: Medical Necessity - Tobacco Use Smoking Status: Former smoker Tobacco Use: Non-smoker Route of nutrition/ use of supplements: [] Nutritional Intake: [] IV Site: [] [place] Catheter: [] - Assessment/Plan Antibiotics: [] Assessment/Plan: [] Active and Suspected Problems (Last Reviewed 07/15/18 @ 16:45 by April Hyatt) Severe sepsis (Acute) Acute on chronic respiratory failure with hypoxia (Acute) COPD exacerbation (Acute) Bilateral pneumonia (Acute) Suspected 2019 novel coronavirus infection (Acute) Pneumonia of both lower lobes (Acute) Respiratory failure (Acute) Subjective fever at home, reported chest pain, hypoxia, cough. COVID neg. 10/24 changed cefepime to vanc/levaquin/flagyl. LFTs improving past few days. Wbc better, mental status much improved, platelets better. Large bilat effusions. Seen by Dr. Bran for free air in abd, large stool disimpacted. Will stop vanc. Ok for d/c to TCU for 3 more days of levaquin and flagyl, can change to po once he is able to take. Will follow, d/w Dr. Klein and telephonic nurse case manager
--- NOTE | 2019-10-28 13:20 | PCM.TXEXTCAR ---
- Diet 10/20/19 07:53 NPO [Diet: Nothing Per Oral] Is pt able to select menu?: No - Routine Orders/Code Status O2 Frequency: PRN Keep PO Greater than or Equal to (%): 90 Code Status: DNRCC-A - Wound(s) Left Lower Back Wound Type: Puncture right outer knee Wound Type: Skin Tear Right Heel Wound Type: Abrasion - Therapies Physical Therapy: Eval and Treat Occupational Therapy: Eval and Treat - Allergies/Procedures Done in Hospital Allergies/Adverse Reactions: Allergies VALENTINA Inhibitors Allergy (Verified 10/14/19 00:33) Unknown Penicillins Allergy (Verified 10/14/19 00:33) Unknown - Type of Care/Length of Stay Estimated LOS: Convalescent Care Less Than 30 days Type of Care Needed: Skilled Rehab Potential: Fair Prognosis: Fair - Additional Orders/Day of Discharge Day of Discharge: 10/28/19 - Dietary and Speech Recommendations Dietitian Recommendations/Changes: Ordered to renew TPN- Will order 2L 5%AA/20% dextrose solution w/ electrolytes to provide 1760 calories, 400 g dextrose, and 100 g protein (meets 100% of calorie and estimated protein needs). Per provider order, no insulin or famotidine added to TPN today. - Follow Up Care Primary Care Physician: Anthony Hirsch,Out of [NON-STAFF] -
--- NOTE | 2019-10-28 13:26 | PCM.DC.SUM ---
Discharge Date and Diagnosis - Problem List Patient Problems: Active and Suspected Problems (Last Reviewed 07/15/18 @ 16:45 by April Hyatt) Severe sepsis (Acute) Acute on chronic respiratory failure with hypoxia (Acute) COPD exacerbation (Acute) Bilateral pneumonia (Acute) Suspected 2019 novel coronavirus infection (Acute) Pneumonia of both lower lobes (Acute) Respiratory failure (Acute) Date of Admission: 10/14/19 Date of Discharge: 10/28/19 - Primary Discharge Diagnosis Active and Suspected Problems (Last Reviewed 07/15/18 @ 16:45 by April Hyatt) Severe sepsis (Acute) Acute on chronic respiratory failure with hypoxia (Acute) COPD exacerbation (Acute) Bilateral pneumonia (Acute) Suspected 2019 novel coronavirus infection (Acute) Pneumonia of both lower lobes (Acute) Respiratory failure (Acute) - Secondary Discharge Diagnosis Chronic Problems CAD (coronary artery disease) (Chronic) PAD (peripheral artery disease) (Chronic) HTN (hypertension) (Chronic) HLD (hyperlipidemia) (Chronic) Diabetes mellitus, type II (Chronic) Heavy alcohol consumption (Chronic) Former tobacco use (Chronic) Hospital Course and Treatment Summary of Care Provided: Patient 69-year-old gentleman admitted with progressive shortness of breath. Patient has had a protracted stay. - 1. Acute metabolic encephalopathy 2. Acute hypoxic respiratory failure 3. Streptococcal pneumonia 4. Thrombocytopenia 5. Hypernatremia 6. Acute transaminitis 7. Essential hypertension 8. Dysphagia 9. Bilateral pleural effusions right greater than left with bibasilar atelectasis and/or infiltrate. 10. Infrarenal fusiform abdominal aortic aneurysm with a transverse dimension of 5.1 cm. 11. Obstipation with Large amount of fecal material is seen in the rectosigmoid colon Patient had a protracted stay in the hospital and was discharged to a half-way facility to transitional care unit to continue with his recuperation Patient Problems: Active and Suspected Problems (Last Reviewed 07/15/18 @ 16:45 by April Hyatt) Severe sepsis (Acute) Acute on chronic respiratory failure with hypoxia (Acute) COPD exacerbation (Acute) Bilateral pneumonia (Acute) Suspected 2019 novel coronavirus infection (Acute) Pneumonia of both lower lobes (Acute) Respiratory failure (Acute) Objective: Physical Examination: GENERAL: Awake and cooperative HEENT: Atraumatic; EYES; Anicteric, Normal Conjunctiva NECK; supple, normal thyroid, RESPIRATORY: Diminished to auscultation CARDIOVASCULAR: Regular S1 S2, - Physical Exam Vitals/I&O's: Vital Signs Temp Pulse Resp BP Pulse Ox 98.0 F 92 18 101/68 99 10/28/19 12:27 10/28/19 12:27 10/28/19 12:27 10/28/19 12:27 10/28/19 12:27 Oxygen Flow Rate (L/min) [3] 4 Oxygen Flow Rate (L/min) [2] 4 Oxygen Flow Rate (L/min) [1 ( 4 Initial Baseline)] Oxygen Flow Rate (L/min) 2 Oxygen Delivery Method [3] Nasal Cannula Oxygen Delivery Method [2] Nasal Cannula Oxygen Delivery Method [1 ( Nasal Cannula Initial Baseline)] Oxygen Delivery Method Room Air Weight: 60.8 kg Body Mass Index (BMI) 21.7 Intake and Output for Last 24 Hours 10/26/19 10/27/19 10/28/19 23:59 23:59 23:59 Intake Total 4451.15 / 4451.15 2673.65 / 2673.65 776.50 / 776.50 Balance 4451.15 / 4451.15 2673.65 / 2673.65 776.50 / 776.50 Microbiology Past 72 Hours 10/25/19 10:35 Urine, Catheterized Urine Culture - Final Culture exhibits no growth. 10/25/19 12:50 Blood Culture (Wb) - Pic Blood Culture - Preliminary No growth in 48 hours. Laboratory Results 10/27/19 06:18: Diff Path Review Reviewed 10/27/19 17:09: POC Glucose 165 H 10/27/19 23:55: POC Glucose 179 H 10/28/19 05:45: POC Glucose 165 H 10/28/19 07:00: WBC 10.9, RBC 4.07 L, Hgb 13.2, Hct 39.1 L, MCV 96.1 H, MCH 32.4 H, MCHC 33.8, RDW Std Deviation 46.4 H, RDW Coeff of Xenia 14.1, Plt Count 41 L*, Differential Comment SCANNED, Diff Path Review November10/28/19 07:00: Sodium 138, Potassium 3.5, Chloride 105, Carbon Dioxide 28.0, Anion Gap 5, BUN 24 H, Creatinine 0.49 L, Estim Creat Clear Calc 58.27, Est GFR (MDRD) Af Amer 216, Est GFR (MDRD) Non-Af 179, BUN/Creatinine Ratio 49.1 H, Glucose 165 H, Calcium 7.7 L, Total Bilirubin 2.10 H, AST 47 H, ALT 150 H, Alkaline Phosphatase 98, Total Protein 4.5 L, Albumin 2.0 L, Globulin 2.5, Albumin/Globulin Ratio 0.8 L 10/28/19 12:32: POC Glucose 187 H Current Medications Acetaminophen (Tylenol) 650 mg PO Q6H PRN PRN PRN Reason: Pain Score 1-10/Temp > 100.7 F Albuterol Sulfate (Ventolin Aerosols) 2.5 mg INHALATION Q2H PRN PRN PRN Reason: Dyspnea, wheezing Last Admin: 10/16/19 14:35 Dose: 2.5 mg Documented by: Albuterol/Ipratropium (Duoneb) 3 ml INHALATION Q4HWA.RT [facility] Last Admin: 10/28/19 10:39 Dose: 3 ml Documented by: Calamine/Phenol (Calmoseptine Ointment) 1 applic TOPICAL BID [facility]; Protocol Last Admin: 10/28/19 08:03 Dose: 1 applicatio Documented by: Dextrose (D50w Syringe) 0 gm IV X1 PRN; Protocol PRN Reason: Hypoglycemia Furosemide (Lasix) 20 mg IV DAILY [facility] Last Admin: 10/28/19 08:03 Dose: 20 mg Documented by: Glucagon () 1 mg IM .X1 PRN PRN Reason: Hypoglycemia Guaifenesin (Robitussin) 10 ml PO Q4H PRN PRN PRN Reason: COUGH Hydralazine HCl (Apresoline Iv) 5 mg IV Q4H PRN PRN PRN Reason: BLOOD PRESSURE Last Admin: 10/24/19 16:23 Dose: 5 mg Documented by: Sodium Chloride () 250 mls @ 15 mls/hr IV .[id number] PRN PRN Reason: Saline Flush Last Infusion: 10/28/19 09:02 Dose: 0 mls/hr Documented by: Sodium Chloride () 250 mls @ 15 mls/hr IV .[id number] PRN PRN Reason: Additional IVPB Infusion Levofloxacin (Levaquin Iv) 750 mg in 150 mls @ 100 mls/hr IV Q24 [place] Last Infusion: 10/28/19 12:03 Dose: Infused Documented by: Metronidazole (Flagyl) 500 mg in 100 mls @ 100 mls/hr IV Q8 [facility] Last Infusion: 10/28/19 06:42 Dose: Infused Documented by: Pantoprazole Sodium 40 mg/ (Sodium Chloride) 110 mls @ 330 mls/hr IV Q12 [facility] Last Infusion: 10/28/19 08:33 Dose: Infused Documented by: Multivitamins 10 ml/ Chromium/Copper/Manganese/Seleni/Zn 1 ml/ Folic Acid 1 mg/ Amino Acids/Electrolytes 2,011 mls @ 84 mls/hr IV .[id number] [facility] Stop: 10/28/19 15:48 Last Admin: 10/27/19 15:54 Dose: 84 mls/hr Documented by: Insulin Human Lispro (Humalog Kwikpen (Bkc)) 0 unit SC Q6 [facility]; Protocol Last Admin: 10/28/19 12:35 Dose: 3 units Documented by: Labetalol HCl (Trandate) 10 mg IV Q4H [facility] Last Admin: 10/28/19 12:27 Dose: Not Given Documented by: Morphine Sulfate () 2 mg IV Q2H PRN PRN PRN Reason: Pain Score 6-10/10 Last Admin: 10/26/19 00:22 Dose: 2 mg Documented by: Nitroglycerin (Nitrostat) 0.4 mg SUBLINGUAL Q5M PRN PRN Reason: CARDIAC/CHEST PAIN Senna/Docusate Sodium (Senokot-S, Ami-Colace) 2 tablet PO BID PRN PRN PRN Reason: Constipation Sodium Chloride () 10 - 40 ml IV UD PRN PRN Reason: SALINE FLUSH Last Admin: 10/28/19 08:07 Dose: 40 ml Documented by: Discharge Diet: No Restrictions Home Medications: Medications to take at Discharge metoprolol tartrate 50 mg tablet 1.5 tab PO BID 30 Days #90 07/20/17 ranolazine 1,000 mg tablet,extended release,12 hr 1 tab PO DAILY 30 Days #60 07/20/17 Cholecalciferol (Vitamin D3) [Vitamin D3] 2,000 unit PO DAILY 10/14/19 Fexofenadine HCl 180 mg PO DAILY 10/14/19 Iron Carbonyl [Feosol] 45 mg PO DAILYCM 10/14/19 Rosuvastatin Calcium 5 mg PO DAILY 10/14/19 Acetaminophen [Tylenol Tablet] 650 mg PO Q6H PRN PRN tab 10/28/19 Albuterol Aerosols [Ventolin Aerosols] 2.5 mg INHALATION Q2H PRN PRN vial.neb. 10/28/19 Glucagon 1 mg IM .X1 PRN syringe 10/28/19 Guaifenesin [Robitussin] 10 ml PO Q4H PRN PRN udc 10/28/19 Insulin Lispro [Humalog KwikPen] See Protocol SUBCUT Q6 insuln.pen 10/28/19 Ipratropium/Albuterol Sulfate [Duoneb] 3 ml INHALATION Q4HWA.RT ampul.neb 10/28/19 Labetalol [Trandate] 10 mg IV Q4H syringe 10/28/19 Menthol/Lanolin/Calamine/Znox [Calmoseptine Ointment] 1 applic TOPICAL BID tube 10/28/19 Nitroglycerin (INPATIENT USE) [Nitrostat] 0.4 mg SUBLINGUAL Q5M PRN tab.subl 10/28/19 Senna/Docusate Sodium [Senokot-S] 2 tab PO BID PRN PRN tab 10/28/19 levoFLOXacin IV [Levaquin 750mg IVPB] 750 mg IV Q24 3 Days #3 bag 10/28/19 metroNIDAZOLE [Flagyl IVPB] 500 mg IV Q8 3 Days #9 bag 10/28/19 Following Prescrptions Were Given to Patient: metroNIDAZOLE [Flagyl IVPB] 500 mg IV Q8 3 Days #9 bag Prescription Printed levoFLOXacin IV [Levaquin 750mg IVPB] 750 mg IV Q24 3 Days #3 bag Prescription Printed Primary Care Physician: Anthony Hirsch,Out of [NON-STAFF] - Disposition: [facility] facility Minutes spent on discharge:: 35 Patient Condition:: Stable Medical Necessity - Tobacco Use Smoking Status: Former smoker Tobacco Use: Non-smoker Meaningful Use Info Meaningful Use Diagnoses (Choose all that apply): None applicable Inpatient E&M: 12512 Disch Hosp
--- NOTE | 2019-10-28 13:31 | NURSING ---
per dr ashton- renew tpn for tx for [facility]
--- NOTE | 2019-10-28 13:38 | NURSING ---
pt's called this RN and let this RN know that Dr. Klein notified pt's of pt's dc order to [facility].
--- NOTE | 2019-10-28 13:38 | CASEMGMT ---
Social Work Pt ready for discharge today and plan is to transfer to TCU. FLORIDALMA spoke with Lisa and TCU is able to accept pt today and precert has been obtained. GABINO Mccullough stating she spoke with pt who is aware that pt is to transfer to TCU at this time. Orders faxed. Plan: TCU today JOSÉ MIGUEL Garcia
[2019-10-31 10:56] LABS: Pathologist Review Reviewed
== END 2019-10-28 14:13 | disposition skilled nursing facility (03) | DRG 871 ==
LOC: ED 02:07 → ICU 02:43 → PCU 10-16 11:19 → ICU 10-18 13:37 → PCU 10-22 15:01
PROVIDERS: Family Medicine; Internal Medicine; Internal Medicine Critical Care Medicine; Internal Medicine Infectious Disease; Nurse Practitioner Family; Physician Assistant; Admitting Provider Family Medicine; Emergency Provider Emergency Medicine; Visit Provider Internal Medicine
DX: A40.9 Streptococcal sepsis, unspecified (principal); J96.21 Acute and chronic respiratory failure with hypoxia; E43 Unspecified severe protein-calorie malnutrition; G93.41 Metabolic encephalopathy; J69.0 Pneumonitis due to inhalation of food and vomit; J15.4 Pneumonia due to other streptococci; I50.21 Acute systolic (congestive) heart failure; E87.0 Hyperosmolality and hypernatremia; J44.0 Chronic obstructive pulmonary disease with (acute) lower respiratory infection; J44.1 Chronic obstructive pulmonary disease with (acute) exacerbation; J90 Pleural effusion, not elsewhere classified; R64 Cachexia; Z68.1 Body mass index [BMI] 19.9 or less, adult; R47.01 Aphasia; I16.1 Hypertensive emergency; F11.23 Opioid dependence with withdrawal; R65.20 Severe sepsis without septic shock; I25.10 Atherosclerotic heart disease of native coronary artery without angina pectoris; E78.5 Hyperlipidemia, unspecified; Z87.891 Personal history of nicotine dependence; I65.29 Occlusion and stenosis of unspecified carotid artery; I67.1 Cerebral aneurysm, nonruptured; I08.1 Rheumatic disorders of both mitral and tricuspid valves; I11.0 Hypertensive heart disease with heart failure; F32.9 Major depressive disorder, single episode, unspecified; F41.9 Anxiety disorder, unspecified; G89.4 Chronic pain syndrome; Z66 Do not resuscitate; Z95.1 Presence of aortocoronary bypass graft; E11.51 Type 2 diabetes mellitus with diabetic peripheral angiopathy without gangrene; D69.6 Thrombocytopenia, unspecified; F10.20 Alcohol dependence, uncomplicated; Z68.21 Body mass index [BMI] 21.0-21.9, adult; Z78.1 Physical restraint status; R13.10 Dysphagia, unspecified; I71.4 Abdominal aortic aneurysm, without rupture; K59.00 Constipation, unspecified; Z79.02 Long term (current) use of antithrombotics/antiplatelets; Z82.49 Family history of ischemic heart disease and other diseases of the circulatory system; I27.20 Pulmonary hypertension, unspecified; Y90.9 Presence of alcohol in blood, level not specified; E11.65 Type 2 diabetes mellitus with hyperglycemia
CPT/HCPCS: 31500; 31720; 32555; 36415; 36569; 36600; 70450; 71045; 71046; 71260; 71275; 74018; 74177; 76705; 80048; 80053; 80061; 80076; 80202; 81001; 82140; 82570; 82728; 82803; 82945; 82962; 83036; 83605; 83615; 83735; 83880; 83935; 84100; 84145; 84156; 84157; 84300; 84443; 84484; 85025; 85027; 85610; 85730; 86022; 86140; 87040; 87070; 87075; 87086; 87205; 87449; 87633; 87635; 87641; 87804; 87807; 87880; 88108; 88305; 88313; 89050; 92526; 92610; 93005; 93306; 94002; 94003; 94640; 94660; 94762; 96365; 97110; 97162; 97166; 97530; 97535; 97802; 97803; 99251; 99285; J2185; J7030; J7040; J7050; Q9967; A4216; G0463; J0696; J1940; J3490; U0004

== ENCOUNTER 2019-10-28 14:25 | Inpatient (IN) | payer OTHER, MEDICARE, SELFPAY ==
[2019-10-27 12:17] VITALS: BMI 21.7
[2019-10-28 14:36] VITALS: BP 87/62; PULSE 92; RESP 16; TEMP 36.7; O2SAT 95; BMI 20.9
[2019-10-28 14:51] VITALS: BMI 20.9
--- NOTE | 2019-10-28 15:37 | NT.THERAPY_ITS ---
Nutrition Therapy Report - History Nutrition Services has been consulted to:: Manage parenteral nutrition Current diet / nutrition support order:: NPO; TPN running from 10/26 (2L 5% AA/20% dextrose solution) - Anthropometric Measurements Height:: 5 ft 6 in Weight:: 59 kg Body Mass Index (BMI):: 20.9 - Assessment Food / Nutrition-Related History:: Res familiar to this RDN from [facility] PCU admission. Has been mostly NPO during acute hospitalization d/t dysphagia, mental status, and concerns for a septic abdomen. Res was evaluated by surgery- not a surgicial candidate; had BM after manual disimpaction by Dr. Bran. Nutrition support initiated on 10/23/19 via TPN. Lipids provided 3x/week. Fluid status and electrolyte imbalances have been concerning. Wt has fluctuated from 55-63.8 kg. [employer] working w/ res to trial PO intake. Was unable to pass swallow evaluation this AM on PCU. TPN for the last 48 hours: 10/25: 1L 5% AA/20% dextrose solution w/ 500mL 20% lipid solution to provide 1880 calories, 50 g protein. 10/26: 2L 5% AA/20% dextrose solution to provide 1760 caloires, 100 g protein. - Nutrition Diagnosis Problem / Etiology / Signs & Symptoms (PES):: Inadequate oral intake related to mental status, dysphagia as evidenced by <50% PO intake >5 days Evidence of Malnutrition Exists:: No - Nutrition Intervention Nutrition Prescription:: [id number] calories, 60-70 g protein - Food / Nutrient Delivery Interventions Summary of nutrition intervention:: Limited history on Res PO intake/wt [employer] is available. Suspected inadequate oral intake [employer] w/ likely chronic malnutrition but unable to confirm at this time. Ideally, res would have PO diet or enteral nutrition support. NG was not placed during acute stay d/t concerns res was agitated and would pull out NG out. PEG was recommended, but there were concerns for abdominal infection. TPN is not ideal for long-term nutrition support if GI tract is functioning. Nutrition support ordered as / adjusted to:: for 10/27: 1L 5% AA/20% dextrose terrell ution w/ electrolytes, 500mL 20% lipid solution Nutrition education provided?: No - MNT Monitoring Further MNT monitoring and evaluation required?: Yes MNT Follow-up in:: 1-2 days - Will continue to manage TPN daily as renewed by provider
[2019-10-28 15:46] VITALS: BMI 20.9
--- NOTE | 2019-10-28 16:13 | HP.PCM_ITS ---
Problem List (1) Debility Status: Acute (2) Acute respiratory failure Status: Acute (3) Streptococcal pneumonia Status: Acute (4) Acute metabolic encephalopathy Status: Acute (5) Acute on chronic systolic (congestive) heart failure Status: Acute (6) Abdominal aortic aneurysm Status: Chronic (7) COPD (chronic obstructive pulmonary disease) Status: Chronic (8) PAOD (peripheral arterial occlusive disease) Status: Chronic (9) Diabetes mellitus Status: Chronic (10) Alcohol abuse Status: Chronic (11) Acne rosacea Status: Chronic (12) Cervical spinal stenosis Status: Chronic (13) Thrombocytopenia Status: Chronic (14) Severe sepsis Status: Acute (15) Bilateral pneumonia Status: Acute Qualifiers: (16) CAD (coronary artery disease) Status: Chronic Qualifiers: (17) HTN (hypertension) Status: Chronic Qualifiers: (18) HLD (hyperlipidemia) Status: Chronic Qualifiers: (19) Dysphagia Status: Acute History of Present Illness Date of Admission: 10/28/19 Chief Complaint: Here for rehabillitation, strengthening, prior to discharge home with . The patient is a 69 year old Male with below past medical history presented to [facility] Emergency Department 10/14/2019 with shortness of breath. 10/14/2019 EKG sinus tachycardia, left ventricular hypertrophy with repolarization abnormality. 10/14/2019 Chest X-ray bilateral lower lobe pneumonia. Shortness of breath, worse tonight, Fever at home. Cough with clear sputum, chest pain. Dypsnea on exertion, headache, nausea/vomiting. CBC okay, CMP okay, PT/PTT okay. Rocephin, Zithromax, Albuterol MDI given. Desaturated despite 6 Liters oxygen per nasal cannula. Patient intubated, ventilated. 10/14/2019 Admit to [facility] ICU. COVID precautions. Rocephin, Zithromax IV for bilateral pneumonia. Solu-Medrol IV for COPD exacerbation. Ventilator. [facility] protocol for alcohol withdrawal. 10/14/2019 X-ray abdomen, NG in good position. 10/14/2019 Dr. Lynne continued broad spectrum antibiotics, consult Infectious Disease. Scheduled aerosols, IV steroids. Wean FiO2, PEEP maintain saturation greater than equal 90%. Lovenox, Famotidine prophylaxis. Propofol, Fentanyl sedation. Start Tube feeding. 10/14/2019 CTA chest showed bilateral lower lobe pneumonia, bilateral pleural effusion, NEGATIVE pulmonary embolism. 10/14/2019 Dr. Maradiaga narrowed antibiotics to Ceftriaxone, COVID pending. 10/15/2019 Patient extubated. 10/16/2019 Chest X-ray right lower lobe pneumonia, small effusions. 10/17/2019 Dr. Maradiaga, COVID NEGATIVE, continue Ceftriaxone. 10/18/2019 Liver enzymes elevated. 10/18/2019 Liver ultrasound normal. 10/18/2019 Thoracentesis removed 500ML imtiaz fluid, NEGATIVE malignant cells. 10/19/2019 CT brain chronic involutional changes of brain. 10/21/2019 Echo Normal Left ventricle size. EF 35%. Segmental dysfunction of LV, multiple coronary distribution. Moderate pulmonary hypertension. PASP 47mm HG. 10/23/2019 Dr. Peañ recommended D5W for persistent hypernatremia. 10/24/2019 Chest X-ray stable. 10/25/2019 CT abdomen/pelvis right pleural effusion, right perihepatic fluid, free air, fecal impaction of colon. 10/25/2019 CT brain chronic involutional changes of brain, prior vascular clip. 10/25/2019 CT chest bilateral pleural effusions, right worse than left, bullous emphysema. 10/25/2019 Dr. Bran recommended conservative management of free air. Continue Levaquin, Vancomycin, Flagyl. Lasix IV for acute on chronic systolic congestive heart failure, BNP > 5000. Liver enzymes elevated, trending down. Dysphagia, TPN via right upper extremity PICC line. 5.1CM Abdominal Aortic Aneurysm needs addressed as outpatient. 10/28/2019 Dr. Maradiaga severe sepsis secondary strep not strep pneumo bilateral pneumonia. Levaquin, Flagyl IV x 3 more day. 10/28/2019 Admit to TCU with debility, here for rehabilitation, strengthening, prior to discharge home with . Past Medical History Past Medical History (Chronic Problems): Chronic Problems Abdominal aortic aneurysm (Chronic) COPD (chronic obstructive pulmonary disease) (Chronic) PAOD (peripheral arterial occlusive disease) (Chronic) Diabetes mellitus (Chronic) Alcohol abuse (Chronic) Acne rosacea (Chronic) Cervical spinal stenosis (Chronic) Thrombocytopenia (Chronic) CAD (coronary artery disease) (Chronic) PAD (peripheral artery disease) (Chronic) HTN (hypertension) (Chronic) HLD (hyperlipidemia) (Chronic) Diabetes mellitus, type II (Chronic) Heavy alcohol consumption (Chronic) Former tobacco use (Chronic) Medical History: Medical History (Last Reviewed 07/15/18 @ 16:45 by April Hyatt) Anemia D64.9 Back pain M54.9 Brain aneurysm I67.1 COPD (chronic obstructive pulmonary disease) J44.9 Chest pain R07.9 Difficulty balancing R29.818 Heart disease I51.9 Limb weakness R29.898 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 SOB (shortness of breath) R06.02 HTN (hypertension) I10 Allergies [facility] Inhibitors Allergy (Verified 10/14/19 00:33) Unknown Penicillins Allergy (Verified 10/14/19 00:33) Unknown Home Medications: Ambulatory Orders Medication Instructions Recorded metoprolol tartrate 50 mg tablet 1.5 tab PO BID 30 Days #90 07/20/17 ranolazine 1,000 mg 1 tab PO DAILY 30 Days #60 07/20/17 tablet,extended release,12 hr Cholecalciferol (Vitamin D3) 2,000 unit PO DAILY 10/14/19 [Vitamin D3] Fexofenadine HCl 180 mg PO DAILY 10/14/19 Iron Carbonyl [Feosol] 45 mg PO DAILYCM 10/14/19 Rosuvastatin Calcium 5 mg PO DAILY 10/14/19 Acetaminophen [Tylenol Tablet] 650 mg PO Q6H PRN PRN tab 10/28/19 Albuterol Aerosols [Ventolin 2.5 mg INHALATION Q2H PRN PRN 10/28/19 Aerosols] vial.neb. Glucagon 1 mg IM .X1 PRN syringe 10/28/19 Guaifenesin [Robitussin] 10 ml PO Q4H PRN PRN udc 10/28/19 Insulin Lispro [Humalog KwikPen] See Protocol SUBCUT Q6 10/28/19 Ipratropium/Albuterol Sulfate 3 ml INHALATION Q4HWA.RT 10/28/19 [Duoneb] Labetalol [Trandate] 10 mg IV Q4H 10/28/19 Menthol/Lanolin/Calamine/Znox 1 applic TOPICAL BID 10/28/19 [Calmoseptine Ointment] Nitroglycerin (INPATIENT USE) 0.4 mg SUBLINGUAL Q5M PRN tab.subl 10/28/19 [Nitrostat] Senna/Docusate Sodium [Senokot-S] 2 tab PO BID PRN PRN tab 10/28/19 levoFLOXacin IV [Levaquin 750mg 750 mg IV Q24 10/28/19 IVPB] metroNIDAZOLE [Flagyl IVPB] 500 mg IV Q8 10/28/19 Surgical History: Surgical History (Last Reviewed 07/15/18 @ 16:45 by April Hyatt) H/O carotid endarterectomy Z98.890 H/O cataract extraction Z98.49 H/O heart bypass surgery Z98.890, Z95.1 Surgical History: cataract, coronary bypass surgery - x 2., tonsillectomy, - - Bilateral carotid endarterectomy, 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 Psychiatric History: Anxiety, Depression Lives: Spouse/ Significant Other Smoking Status: Former smoker Tobacco Use: Non-smoker Alcohol: Heavy Drugs: None - *Family History Maternal History Items: Heart Disease, Hypertension Paternal History Items: Heart Disease, Hypertension Review of Systems Constitutional: Denies: Chills, Fever, Weight Change HEENT: Denies: Head Aches, Sinus Congestion, Sinus Drainage Cardiovascular: Denies: Chest Pain, Palpitations Respiratory: Denies: Cough, Shortness of breath at rest, Sputum production Gastrointestinal: Denies: Abdominal Pain, Nausea, Vomiting Genitourinary: Denies: Dysuria Musculoskeletal: Denies: Joint Pain, Joint Tenderness Skin: Denies: Rash, Wounds Neurological: Denies: Numbness, Tingling, Focal weakness Psychiatric: Denies: Anxiety, Depression, Homicidal Ideations, Suicidal Ideations Hematologic/ Lymphatic: Denies: Easy Bruising, Easy Bleeding VTE Information - Inpt Only VTE Present on Admission: No VTE Mechan Device Prophylaxis: Knee High DEVANTE Hose VTE Pharm Prophylaxis ordered?: No Reason prophylaxis not ordered:: Medical Contraindication Patient Problems: Active and Suspected Problems (Last Reviewed 07/15/18 @ 16:45 by April Hyatt) Debility (Acute) Acute respiratory failure (Acute) Streptococcal pneumonia (Acute) Acute metabolic encephalopathy (Acute) Acute on chronic systolic (congestive) heart failure (Acute) Dysphagia (Acute) - Physical Exam Vitals/I&O's: Weight: 59 kg Body Mass Index (BMI) 20.9 General: Alert, Oriented x3, Cooperative HEENT: Atraumatic, PERRLA, EOMI, Normocephalic Neck: Supple, No JVD, Negative Carotid Bruits Lungs: Clear to auscultation, Normal air movement Cardiovascular: Regular rate, No murmurs Abdomen: Bowel Sounds Present, Soft, Non Tender Extremities: No edema, Capillary Refill Less than 3 Seconds, - - PICC line right upper extremity. Skin: No rashes, No breakdown Musculoskeletal: No Tenderness to Palpation of Joints or Extremities Neurological: Cranial nerves II-XII grossly intact Psych/Mental Status: Normal Affect, Appropriate Current Medications Acetaminophen (Tylenol) 650 mg PO Q6H PRN PRN PRN Reason: Pain Score 1-10/Temp > 100.7 F Albuterol Sulfate (Ventolin Aerosols) 2.5 mg INHALATION Q2H PRN PRN PRN Reason: Dyspnea, wheezing Albuterol/Ipratropium (Duoneb) 3 ml INHALATION Q4HWA.RT [facility] Atorvastatin Calcium (Lipitor) 10 mg PO QHS [facility] Calamine/Phenol (Calmoseptine Ointment) 1 applic TOPICAL BID [facility]; Protocol Cholecalciferol (Vitamin D (25mcg)) 2,000 unit PO DAILY [facility] Glucagon () 1 mg IM .X1 PRN PRN Reason: Hypoglycemia Guaifenesin (Robitussin) 10 ml PO Q4H PRN PRN PRN Reason: COUGH Multivitamins 10 ml/ Chromium/Copper/Manganese/Seleni/Zn 1 ml/ Folic Acid 1 mg/ Amino Acids/Electrolytes 2,011 mls @ 42 mls/hr IV .Q24H [facility] Stop: 10/29/19 15:47 Fat Emulsion Intravenous (Intralipid 20%) 500 mls @ 42 mls/hr IV .[id number] [facility] Stop: 10/29/19 03:54 Levofloxacin (Levaquin Iv) 750 mg in 150 mls @ 100 mls/hr IV Q24 [facility] Metronidazole (Flagyl) 500 mg in 100 mls @ 100 mls/hr IV Q8 [facility] Insulin Human Lispro (Humalog Kwikpen (Bkc)) 0 unit SC Q6 [facility]; Protocol [facility]) [facility] Labetalol HCl (Trandate) 10 mg IV Q4 [facility] Loratadine (Claritin) 10 mg PO DAILY [facility] Metoprolol Tartrate (Lopressor (Beta Agnieszka)) mg PO BID [facility] Nitroglycerin (Nitrostat) 0.4 mg SUBLINGUAL Q5M PRN PRN Reason: CARDIAC/CHEST PAIN Ranolazine (Ranexa) 1,000 mg PO DAILY [facility] Senna/Docusate Sodium (Senokot-S, Ami-Colace) 2 tablet PO BID PRN PRN PRN Reason: Constipation Tuberculin PPD (Tubersol, Aplisol, Ppd) 5 tu ID X1 ONE Stop: 10/29/19 10:01 Tuberculin PPD (Tubersol, Aplisol, Ppd) 5 tu ID X1 ONE Stop: 11/05/19 10:01 Assessment/Plan All Active Problems (Last Reviewed 07/15/18 @ 16:45 by April Hyatt) Debility (Acute) Acute respiratory failure (Acute) Streptococcal pneumonia (Acute) Acute metabolic encephalopathy (Acute) Acute on chronic systolic (congestive) heart failure (Acute) Dysphagia (Acute) Severe sepsis (Acute) Acute on chronic respiratory failure with hypoxia (Acute) COPD exacerbation (Acute) Bilateral pneumonia (Acute) Suspected 2018 novel coronavirus infection (Acute) Pneumonia of both lower lobes (Acute) Respiratory failure (Acute) Bronchitis (Acute) URI (upper respiratory infection) (Acute) Sinusitis, acute maxillary (Acute) 69 year old male with below past medical history hospitalized for bilateral pneumonia, acute respiratory failure requiring intubation, complicated by encephalopathy, transaminitis, hypernatremia, dysphagia, abdominal free air, thrombocytopenia, admitted to TCU with debility, here for rehabilitation, strengthening, prior to discharge home with . * Debility - PT/OT. * Dysphagia - ST, need to start diet. * Pain - Tylenol 1000MG Q6H PRN pain (1-10). * Bowel - Miralax 17GM daily, Senna/colace 2 tablets BID, Dulcolax 10MG daily PRN. * Adult immunization - Administer Prevnar 13, Pneumovax 23, Fluzone as appropriate. * DVT prophylaxis - Hold, thrombocytopenia. * Coronary Artery Disease - Metoprolol 75MG BID, Ranexa 1000MG daily, NTG 0.4MG Q5M PRN. * COPD - Duoneb 3ML Q4HWA, Ventolin 2.5MG Q2H PRN. * Hyperlipidemia - Atorvastatin 10MG QHS. * Vitamin D deficiency - D3 2000IU daily. * Diabetes Mellitus II - Glucagon 1MG IM x 1 PRN hypoglycemia, monitor blood sugars. * Cough - Robitussin 10ML Q4H PRN. * Iron deficiency anemia - Iron 45MG daily. * Strep not strep pneumonia pneumonia - Levaquin 75MG IV Q24H thru 10/31/2019, Flagyl 500MG IV Q8H thru 10/31/2019. * Allergic rhinitis - Loratadine 10MG daily. * Skin irritation - Calmoseptine BID. * Nutrition - TPN 42ML/hour, consult ST to start diet.
[2019-10-28 17:36] LABS: Bedside Glucose 55 mg/dL (70-110)
--- NOTE | 2019-10-28 17:48 | NURSING ---
Notified Dr. Rojas of patients blood sugar of 55. New bag of TPN had just been hung. Dr. Rojas stated to recheck pt in an hour and if blood sugar has not increased to call him.
[2019-10-28] MEDS: Fat Emulsions 20% 500 ML IV (18:29)
[2019-10-28] MEDS: Senna/Docusate Sodium 1 Tablet 2 TABLET PO (18:29)
[2019-10-28] MEDS: Menthol/Lanolin/Calamine/Znox 113 GM Tube 1 APPLIC TOPICAL (18:32)
[2019-10-28 19:31] LABS: Bedside Glucose 100 mg/dL (70-110)
[2019-10-28 19:35] VITALS: PULSE 90; RESP 18
[2019-10-28] MEDS: Atorvastatin Calcium 10 MG Tablet PO (22:40)
[2019-10-29] VITALS (7 sets, daily range): BP systolic 90–110; BP diastolic 46–63; PULSE 75–92; RESP 18–19; TEMP 37.1; O2SAT 94–97; BMI 20.9
[2019-10-29] MEDS: Polyethylene Glycol 3350 17 GM PACKET PO (05:15)
[2019-10-29] MEDS: Loratadine 10 MG Tablet PO (05:16)
[2019-10-29] MEDS: Senna/Docusate Sodium 1 Tablet 2 TABLET PO (05:16)
[2019-10-29] MEDS: Ranolazine 500 MG Tablet 1000 MG PO (05:16)
[2019-10-29] MEDS: Metoprolol Tartrate 50 MG Tablet 75 MG PO (05:17)
[2019-10-29] MEDS: Menthol/Lanolin/Calamine/Znox 113 GM Tube 1 APPLIC TOPICAL ×2 (05:19→16:52)
[2019-10-29] MEDS: 0.9% NaCl IVPB Med Flush (250 mL) 15 ML IV ×2 (05:30→10:53)
[2019-10-29 06:26] LABS: Bedside Glucose 139 mg/dL (70-110)
[2019-10-29] MEDS: Ipratropium/Albuterol Sulfate 3 ML AMPUL.NEB INHALATION ×4 (06:42→19:25)
[2019-10-29 07:24] LABS: Absolute Lymphocyte Count 0.42 X10^3/uL (0.83-4.51); Absolute Neutrophil Count 10.2 X10^3/uL (2.0-7.7); Basophil# 0.01 X10^3/uL; Basophil% 0.1 % (0-1); Eosinophil# 0.19 X10^3/uL; Eosinophils% 1.6 % (0-5); Hematocrit 36.6 % (40-54); Hemoglobin 12.8 g/dL (13.0-16.5); Lymphocyte # 0.42 X10^3/ul (4.0); Lymphocyte % 3.6 % (19-41); Mean Corpuscular Hgb 33.6 pg (27.0-32.0); Mean Corpuscular Volume 96.1 fL (80-94); NRBC Flagged by Analyzer 0 % (0-5); Neutrophil % 88.1 % (47-70); POSITIVE COUNT YES; POSITIVE DIFFERENTIAL YES; RBC Distribution Width CV 14.3 % (11.6-14.6); RBC Distribution Width SD 46.4 fl (35.1-43.9); Red Blood Count 3.81 M/mm3 (4.6-6.2); White Blood Count 11.6 K/mm3 (4.4-11.0)
[2019-10-29 07:25] LABS: ALB/GLOB Ratio 0.5 RATIO (0.9-2.4); AST(SGOT) 63 U/L (15-37); Alanine Aminotransfer ALT/SGPT 117 U/L (16-61); Albumin, Serum 1.6 g/dL (3.2-5.0); Alkaline Phosphatase 95 U/L (45-117); Anion Gap 7 (5-15); BUN 20 mg/dL (7-18); BUN/Creat Ratio 44.6 RATIO (10-20); Calcium,Total 7.5 mg/dL (8.5-10.1); Chloride 106 mmol/L (98-107); Creatinine, Serum 0.45 mg/dL (0.70-1.30); EST Glomerular Filtration Rate 198 mL/min (>60); Est Glom Filt Rate - Afr Amer 239 mL/min (>60); Estimated Creatinine Clearance 56.54 ml/min; Globulin 3.1 g/dL (2.2-4.2); Glucose 144 mg/dL (74-106); Magnesium 1.5 mg/dL (1.6-2.6); Potassium 4.2 mmol/L (3.5-5.1); Protein, Total 4.7 g/dL (6.4-8.2); Sodium Level 135 mmol/L (136-145)
[2019-10-29 07:26] LABS: Differential Indicated SCAN CRITERIA MET; Platelet Count 46 K/mm3 (150-450)
--- NOTE | 2019-10-29 07:27 | NURSING ---
critical lab value called to floor, platelets 46. Dr. Rojas notified.
[2019-10-29 07:41] LABS: Differential Comment SCANNED; Platelet Estimate MKD DEC (ADEQ)
--- NOTE | 2019-10-29 08:12 | PCM.NTREPORT ---
Nutrition Therapy Report - History Nutrition Services has been consulted to:: Manage parenteral nutrition Current diet / nutrition support order:: NPO; TPN running from 10/26 (1L 5% AA/20% dextrose solution w/ electrolytes, 500mL 20% lipid solution) - Anthropometric Measurements Height:: 5 ft 6 in Weight:: 59 kg Body Mass Index (BMI):: 20.9 - Relevant Labs Relevant Labs:: WBC 11.6 K/mm3 (4.4-11.0) H 10/29/19 06:59 RBC 3.81 M/mm3 (4.6-6.2) L 10/29/19 06:59 Hgb 12.8 g/dL (13.0-16.5) L 10/29/19 06:59 Hct 36.6 % (40-54) L 10/29/19 06:59 MCV 96.1 fL (80-94) H 10/29/19 06:59 MCH 33.6 pg (27.0-32.0) H 10/29/19 06:59 RDW Std Deviation 46.4 fl (35.1-43.9) H 10/29/19 06:59 Plt Count 46 K/mm3 (150-450) L* 10/29/19 06:59 Neut % (Auto) 88.1 % (47-70) H 10/29/19 06:59 Lymph % (Auto) 3.6 % (19-41) L 10/29/19 06:59 Absolute Neuts (auto) 10.2 X10^3/uL (2.0-7.7) H 10/29/19 06:59 Absolute Lymphs (auto) 0.42 X10^3/uL (0.83-4.51) L 10/29/19 06:59 Sodium 135 mmol/L (136-145) L 10/29/19 06:30 BUN 20 mg/dL (7-18) H 10/29/19 06:30 Creatinine 0.45 mg/dL (0.70-1.30) L 10/29/19 06:30 BUN/Creatinine Ratio 44.6 RATIO (10-20) H 10/29/19 06:30 Glucose 144 mg/dL (74-106) H 10/29/19 06:30 Calcium 7.5 mg/dL (8.5-10.1) L 10/29/19 06:30 Magnesium 1.5 mg/dL (1.6-2.6) L 10/29/19 06:30 Total Bilirubin 2.10 mg/dL (0.20-1.00) H 10/29/19 06:30 AST 63 U/L (15-37) H 10/29/19 06:30 ALT 117 U/L (16-61) H 10/29/19 06:30 Total Protein 4.7 g/dL (6.4-8.2) L 10/29/19 06:30 Albumin 1.6 g/dL (3.2-5.0) L 10/29/19 06:30 Albumin/Globulin Ratio 0.5 RATIO (0.9-2.4) L 10/29/19 06:30 - Assessment Food / Nutrition-Related History:: TPN yesterday, 10/27: 1L 5% AA/20% dextrose solution w/ electrolytes, 500mL 20% lipid solution to provide 1880 calories, [address]N consulted by provider to renew TPN today- Per order, no insulin or famotidine in TPN today. Nutrition support initiated on 10/23/19 via TPN. Lipids provided 3x/week. Per H+P RECREATION THERAPY AIDES TEACHER consult in place, RECREATION THERAPY AIDES TEACHER to progress pt to diet order as pt medically able- currently NPO w/ clear liquid diet order in place to advance per RECREATION THERAPY AIDES TEACHER. No wt change per EMR, CBW 59 kg. - Nutrition Diagnosis Problem / Etiology / Signs & Symptoms (PES):: Inadequate oral intake related to mental status, dysphagia as evidenced by <50% PO intake >5 days. Evidence of Malnutrition Exists:: No - Nutrition Intervention Nutrition Prescription:: 2857-8933 calories, 60-70 g protein - Food / Nutrient Delivery Interventions Summary of nutrition intervention:: Limited history on Res PO intake/wt ASSOCIATE PROFESSOR OF [employer]URCH [employer] is available. Suspected inadequate oral intake ASSOCIATE PROFESSOR [employer] w/ likely chronic malnutrition but unable to confirm at this time. Ideally, res would have PO diet or enteral nutrition support. NG was not placed during acute stay d/t concerns res was agitated and would pull out NG out. PEG was recommended, but there were concerns for abdominal infection. TPN is not ideal for long-term nutrition support if GI tract is functioning. Nutrition support ordered as / adjusted to:: For 10/28: 2L 5% AA/20% dextrose solution to provide 1760 calories, 100 g protein (meets 100% of calorie and estimated protein needs). Per provider order, no insulin or famotidine added to TPN today. Nutrition education provided?: No - MNT Monitoring Further MNT monitoring and evaluation required?: Yes MNT Follow-up in:: 1-2 days - Will continue to manage TPN daily as renewed by provider
[2019-10-29] MEDS: Tuberculin,Purif.prot.deriv. 50 TU/ML Vial 5 ML ID (09:47)
[2019-10-29] MEDS: levoFLOXacin IV 750 MG/150 ML BAG 100 MG IV (10:53)
[2019-10-29] MEDS: 0.9% Saline Lock 10 ML Syringe IV ×2 (10:54→23:09)
--- NOTE | 2019-10-29 13:36 | NURSING ---
MEPILEX APPLIED TO RIGHT HEEL DUE TO REDNESS AND ABRASIONS. GABINO AWARE
[2019-10-29 19:00] LABS: Bedside Glucose 157 mg/dL (70-110)
--- NOTE | 2019-10-29 22:28 | NURSING ---
Per Dr. Rojas chart against all PO meds till approved by speech to advance diet.
[2019-10-30] VITALS (8 sets, daily range): BP systolic 104–110; BP diastolic 63–68; PULSE 75–92; RESP 14–20; TEMP 36.8; O2SAT 98; BMI 20.9
[2019-10-30 00:16] LABS: Bedside Glucose 134 mg/dL (70-110)
[2019-10-30 06:05] LABS: Bedside Glucose 117 mg/dL (70-110)
[2019-10-30] MEDS: Menthol/Lanolin/Calamine/Znox 113 GM Tube 1 APPLIC TOPICAL ×2 (06:08→17:28)
[2019-10-30] MEDS: Ipratropium/Albuterol Sulfate 3 ML AMPUL.NEB INHALATION ×4 (07:25→19:08)
[2019-10-30 09:25] LABS: Absolute Neutrophil Count 7.7 X10^3/uL (2.0-7.7); Basophil# 0.01 X10^3/uL; Basophil% 0.1 % (0-1); Eosinophil# 0.16 X10^3/uL; Eosinophils% 1.7 % (0-5); Hematocrit 36.6 % (40-54); Hemoglobin 12.2 g/dL (13.0-16.5); Lymphocyte % 6.5 % (19-41); Mean Corp Hgb Conc 33.3 g/dL (32-36); Mean Corpuscular Hgb 31.5 pg (27.0-32.0); Mean Corpuscular Volume 94.6 fL (80-94); Mean Platelet Vol. 13.6 fl (6.2-12.0); Monocyte# 0.72 X10^3/uL; Monocyte% 7.8 % (0-10); NRBC Flagged by Analyzer 0 % (0-5); Neutrophil # 7.73 X10^3/uL (2.7-7.7); Neutrophil % 83.5 % (47-70); POSITIVE COUNT YES; POSITIVE DIFFERENTIAL YES; POSITIVE MORPHOLOGY YES; RBC Distribution Width SD 46.2 fl (35.1-43.9); Red Blood Count 3.87 M/mm3 (4.6-6.2); White Blood Count 9.3 K/mm3 (4.4-11.0)
[2019-10-30] MEDS: levoFLOXacin IV 750 MG/150 ML BAG 100 MG IV (09:29)
[2019-10-30 09:32] LABS: Differential Indicated SCAN CRITERIA MET; Platelet Count 49 K/mm3 (150-450)
[2019-10-30] MEDS: 0.9% Saline Lock 10 ML Syringe IV ×3 (09:40→16:17)
[2019-10-30 09:48] LABS: ALB/GLOB Ratio 0.8 RATIO (0.9-2.4); AST(SGOT) 41 U/L (15-37); Alanine Aminotransfer ALT/SGPT 95 U/L (16-61); Alkaline Phosphatase 89 U/L (45-117); Anion Gap 4 (5-15); BUN 22 mg/dL (7-18); BUN/Creat Ratio 52.9 RATIO (10-20); Calcium,Total 7.8 mg/dL (8.5-10.1); Chloride 108 mmol/L (98-107); Creatinine, Serum 0.42 mg/dL (0.70-1.30); EST Glomerular Filtration Rate 215 mL/min (>60); Est Glom Filt Rate - Afr Amer 261 mL/min (>60); Estimated Creatinine Clearance 56.54 ml/min; Globulin 2.6 g/dL (2.2-4.2); Glucose 127 mg/dL (74-106); Magnesium 1.6 mg/dL (1.6-2.6); Potassium 3.7 mmol/L (3.5-5.1); Protein, Total 4.6 g/dL (6.4-8.2); Sodium Level 139 mmol/L (136-145)
[2019-10-30 09:49] LABS: Differential Comment SCANNED
[2019-10-30 09:50] LABS: Platelet Estimate MKD DEC (ADEQ)
[2019-10-30 09:55] LABS: Platelet Morphology LARGE
--- NOTE | 2019-10-30 10:17 | NT.THERAPY_ITS ---
Nutrition Therapy Report - History Nutrition Services has been consulted to:: Manage parenteral nutrition Current diet / nutrition support order:: NPO; TPN Running from 10/28: 2L (5%AA/20% dextrose solution) w/ electrolytes - Anthropometric Measurements Height:: 5 ft 6 in Weight:: 59 kg Body Mass Index (BMI):: 20.9 - Relevant Labs Relevant Labs:: WBC 11.6 K/mm3 (4.4-11.0) H 10/29/19 06:59 RBC 3.87 M/mm3 (4.6-6.2) L 10/30/19 09:15 Hgb 12.2 g/dL (13.0-16.5) L 10/30/19 09:15 Hct 36.6 % (40-54) L 10/30/19 09:15 MCV 94.6 fL (80-94) H 10/30/19 09:15 MCH 33.6 pg (27.0-32.0) H 10/29/19 06:59 RDW Std Deviation 46.2 fl (35.1-43.9) H 10/30/19 09:15 Plt Count 49 K/mm3 (150-450) L* 10/30/19 09:15 MPV 13.6 fl (6.2-12.0) H 10/30/19 09:15 Neut % (Auto) 83.5 % (47-70) H 10/30/19 09:15 Lymph % (Auto) 6.5 % (19-41) L 10/30/19 09:15 Absolute Neuts (auto) 10.2 X10^3/uL (2.0-7.7) H 10/29/19 06:59 Absolute Lymphs (auto) 0.60 X10^3/uL (0.83-4.51) L 10/30/19 09:15 Sodium 135 mmol/L (136-145) L 10/29/19 06:30 Chloride 108 mmol/L (98-107) H 10/30/19 09:15 Anion Gap 4 (5-15) L 10/30/19 09:15 BUN 22 mg/dL (7-18) H 10/30/19 09:15 Creatinine 0.42 mg/dL (0.70-1.30) L 10/30/19 09:15 BUN/Creatinine Ratio 52.9 RATIO (10-20) H 10/30/19 09:15 Glucose 127 mg/dL (74-106) H 10/30/19 09:15 Calcium 7.8 mg/dL (8.5-10.1) L 10/30/19 09:15 Magnesium 1.5 mg/dL (1.6-2.6) L 10/29/19 06:30 Total Bilirubin 1.90 mg/dL (0.20-1.00) H 10/30/19 09:15 AST 41 U/L (15-37) H 10/30/19 09:15 ALT 95 U/L (16-61) H 10/30/19 09:15 Total Protein 4.6 g/dL (6.4-8.2) L 10/30/19 09:15 Albumin 2.0 g/dL (3.2-5.0) L 10/30/19 09:15 Albumin/Globulin Ratio 0.8 RATIO (0.9-2.4) L 10/30/19 09:15 - Assessment Food / Nutrition-Related History:: TPN yesterday: 2L 5%AA/20% dextrose solution w/ electrolytes to provide 1760 calories, 100 g protein. No lipids- Last lipids 10/27. RDN consulted by provider to renew TPN today- Per order, no insulin or famotidine in TPN today. Nutrition support initiated on 10/23/19 via TPN. Lipids provided 3x/week. Magnesium (1.6mg/dl), Phosphorous (3mg/dl), and Potassium (3.7 mg/dl) all in normal range. SOLID STATE TESTER bedside swallow results: pt to remain NPO status d/t high risk of aspiriation- frequent oral care to be provided. SOLID STATE TESTER following. No new wt to assess- CBW 59 kg. - Nutrition Diagnosis Problem / Etiology / Signs & Symptoms (PES):: Inadequate oral intake related to mental status, dysphagia as evidenced by <50% PO intake >5 days. Evidence of Malnutrition Exists:: No - Nutrition Intervention Nutrition Prescription:: [id number] calories, 60-70 g protein - Food / Nutrient Delivery Interventions Summary of nutrition intervention:: Limited history on Res PO intake/wt MEDICAL STAFFING COORDINATOR is available. Suspected inadequate oral intake MEDICAL STAFFING COORDINATOR w/ likely chronic malnutrition but unable to confirm at this time. Ideally, res would have PO diet or enteral nutrition support. NG was not placed during acute stay d/t concerns res was agitated and would pull out NG out. PEG was recommended, but there were concerns for abdominal infection. TPN is not ideal for long-term nutrition support if GI tract is functioning. Nutrition support ordered as / adjusted to:: For 10/29, will order 2L 5%AA/20% dextrose solution w/ electrolytes to provide 1760 calories, 100 g protein (meets 100% of calorie and estimated protein needs). Per provider order, no insulin or famotidine added to TPN today. Nutrition education provided?: No - MNT Monitoring Further MNT monitoring and evaluation required?: Yes - Will continue to manage TPN daily as renewed by provider. MNT Follow-up in:: 1-2 days
[2019-10-30 11:01] LABS: Bedside Glucose 123 mg/dL (70-110)
[2019-10-30 21:26] LABS: Bedside Glucose 141 mg/dL (70-110)
[2019-10-31 05:18] LABS: Absolute Lymphocyte Count 0.64 X10^3/uL (0.83-4.51); Absolute Neutrophil Count 9.2 X10^3/uL (2.0-7.7); Basophil# 0.02 X10^3/uL; Basophil% 0.2 % (0-1); Eosinophil# 0.14 X10^3/uL; Eosinophils% 1.3 % (0-5); Hematocrit 37.5 % (40-54); Hemoglobin 12.4 g/dL (13.0-16.5); Lymphocyte # 0.64 X10^3/ul (4.0); Lymphocyte % 5.9 % (19-41); Mean Corp Hgb Conc 33.1 g/dL (32-36); Mean Corpuscular Hgb 31.6 pg (27.0-32.0); Mean Corpuscular Volume 95.7 fL (80-94); Monocyte# 0.87 X10^3/uL; NRBC Flagged by Analyzer 0 % (0-5); Neutrophil # 9.16 X10^3/uL (2.7-7.7); Neutrophil % 84.3 % (47-70); POSITIVE COUNT YES; RBC Distribution Width CV 13.8 % (11.6-14.6); RBC Distribution Width SD 45.9 fl (35.1-43.9); Red Blood Count 3.92 M/mm3 (4.6-6.2); White Blood Count 10.9 K/mm3 (4.4-11.0)
[2019-10-31 05:20] LABS: Platelet Count 47 K/mm3 (150-450)
[2019-10-31 05:33] LABS: ALB/GLOB Ratio 0.7 RATIO (0.9-2.4); AST(SGOT) 39 U/L (15-37); Alanine Aminotransfer ALT/SGPT 83 U/L (16-61); Alkaline Phosphatase 91 U/L (45-117); Anion Gap 4 (5-15); BUN 20 mg/dL (7-18); BUN/Creat Ratio 44.9 RATIO (10-20); Chloride 106 mmol/L (98-107); Creatinine, Serum 0.44 mg/dL (0.70-1.30); EST Glomerular Filtration Rate 199 mL/min (>60); Est Glom Filt Rate - Afr Amer 241 mL/min (>60); Estimated Creatinine Clearance 56.54 ml/min; Glucose 116 mg/dL (74-106); Magnesium 1.8 mg/dL (1.6-2.6); Phosphorus 3.2 mg/dL (2.5-4.9); Potassium 3.6 mmol/L (3.5-5.1); Sodium Level 138 mmol/L (136-145)
[2019-10-31 06:34] VITALS: PULSE 98; RESP 18; O2SAT 97
[2019-10-31] MEDS: Ipratropium/Albuterol Sulfate 3 ML AMPUL.NEB INHALATION ×4 (06:34→19:13)
[2019-10-31 07:31] LABS: Bedside Glucose 132 mg/dL (70-110)
[2019-10-31] MEDS: Menthol/Lanolin/Calamine/Znox 113 GM Tube 1 APPLIC TOPICAL ×2 (07:36→17:10)
[2019-10-31] MEDS: levoFLOXacin IV 750 MG/150 ML BAG 100 MG IV (09:28)
[2019-10-31] MEDS: 0.9% NaCl IVPB Med Flush (250 mL) 15 ML IV (09:31)
[2019-10-31 10:56] LABS: Pathologist Review Reviewed
[2019-10-31 10:58] LABS: Pathologist Review Reviewed
[2019-10-31 11:15] VITALS: PULSE 69; RESP 18
[2019-10-31 11:35] LABS: Bedside Glucose 138 mg/dL (70-110)
[2019-10-31 13:19] LABS: Triglycerides 40 mg/dL
--- NOTE | 2019-10-31 13:27 | PCM.NTREPORT ---
Nutrition Therapy Report - History Nutrition Services has been consulted to:: Manage parenteral nutrition Current diet / nutrition support order:: NPO; TPN with Lipids on M, W, F - Anthropometric Measurements Height:: 5 ft 6 in Weight:: 59 kg Body Mass Index (BMI):: 20.9 - Relevant Labs Relevant Labs:: WBC 11.6 K/mm3 (4.4-11.0) H 10/29/19 06:59 RBC 3.92 M/mm3 (4.6-6.2) L 10/31/19 05:05 Hgb 12.4 g/dL (13.0-16.5) L 10/31/19 05:05 Hct 37.5 % (40-54) L 10/31/19 05:05 MCV 95.7 fL (80-94) H 10/31/19 05:05 MCH 33.6 pg (27.0-32.0) H 10/29/19 06:59 RDW Std Deviation 45.9 fl (35.1-43.9) H 10/31/19 05:05 Plt Count 47 K/mm3 (150-450) L* 10/31/19 05:05 MPV 14.0 fl (6.2-12.0) H 10/31/19 05:05 Neut % (Auto) 84.3 % (47-70) H 10/31/19 05:05 Lymph % (Auto) 5.9 % (19-41) L 10/31/19 05:05 Absolute Neuts (auto) 9.2 X10^3/uL (2.0-7.7) H 10/31/19 05:05 Absolute Lymphs (auto) 0.64 X10^3/uL (0.83-4.51) L 10/31/19 05:05 Sodium 135 mmol/L (136-145) L 10/29/19 06:30 Chloride 108 mmol/L (98-107) H 10/30/19 09:15 Anion Gap 4 (5-15) L 10/31/19 05:05 BUN 20 mg/dL (7-18) H 10/31/19 05:05 Creatinine 0.44 mg/dL (0.70-1.30) L 10/31/19 05:05 BUN/Creatinine Ratio 44.9 RATIO (10-20) H 10/31/19 05:05 Glucose 116 mg/dL (74-106) H 10/31/19 05:05 Calcium 8.0 mg/dL (8.5-10.1) L 10/31/19 05:05 Magnesium 1.5 mg/dL (1.6-2.6) L 10/29/19 06:30 Total Bilirubin 1.80 mg/dL (0.20-1.00) H 10/31/19 05:05 AST 39 U/L (15-37) H 10/31/19 05:05 ALT 83 U/L (16-61) H 10/31/19 05:05 Total Protein 5.0 g/dL (6.4-8.2) L 10/31/19 05:05 Albumin 2.0 g/dL (3.2-5.0) L 10/31/19 05:05 Albumin/Globulin Ratio 0.7 RATIO (0.9-2.4) L 10/31/19 05:05 - Assessment Food / Nutrition-Related History:: Res remains contraindicated for PO nutrition per MANAGER WORKERS COMPENSATION. TPN/NPO continues at this time. Should be assessed for feasibility of PEG placement for TF support if plan is for jail NPO. - Nutrition Diagnosis Problem / Etiology / Signs & Symptoms (PES):: Difficulty swallowing related to mental status as evidenced by NPO; need for TPN support for nutrition. Evidence of Malnutrition Exists:: No - Nutrition Intervention Nutrition Prescription:: For 10/30, will order 2L 5%AA/20% dextrose solution w/ electrolytes to provide 1760 calories, 100 g protein (meets 100% of calorie and estimated protein needs). Lipids M, W, F--will order 250 ml 20% lipid infusion to provide additional 500 kcal. Per provider order--no insulin, no famotidine added to TPN today. - Food / Nutrient Delivery Interventions Summary of nutrition intervention:: As order for renewing TPN is placed daily by physician, RDN will manage nutrient details of TPN and order TPN as indicated.. For 10/30, will order 2L 5%AA/20% dextrose solution w/ electrolytes to provide 1760 calories, 100 g protein (meets 100% of calorie and estimated protein needs). Lipids M, W, F--will ordered 250 ml 20% lipid infusion to provide additional 500 kcal. Per provider order--no insulin, no famotidine added to TPN today. Will order CMP, CBC w/ diff, magnesium, phosphorus daily x3, then weekly as stable. Triglycerides ordered today (to be drawn weekly)--last done 10/23/19. Daily wts. Nutrition support ordered as / adjusted to:: Continue 2L 5%AA/20% dextrose solution w/ electrolytes to provide 1760 calories, 100 g protein (meets 100% of calorie and estimated protein needs) and ordered 250 ml 20% lipid infusion to provide additional 500 kcal. Per provider order--no insulin, no famotidine added to TPN today. Nutrition education provided?: No - MNT Monitoring Further MNT monitoring and evaluation required?: Yes MNT Follow-up in:: 1-2 days - Spoke to Nicolas in pharmacy to confirm TPN as ordered.
--- NOTE | 2019-10-31 13:28 | PCM.PN.RX ---
<Eulogio Hardin C - Last Filed: 10/31/19 13:28> Progress Note - Pharmacy Subjective: [] TCU Admission Objective: Allergies VALENTINA Inhibitors Allergy (Verified 10/14/19 00:33) Unknown Penicillins Allergy (Verified 10/14/19 00:33) Unknown Current Medications Generic Name Dose Route Start Last Admin Trade Name Freq PRN Reason Stop Dose Admin Acetaminophen 1,000 mg 10/28/19 16:53 Tylenol PO Q6H PRN PRN Pain Score 1-10/10 Albuterol Sulfate 2.5 mg 10/28/19 15:27 Ventolin Aerosols INHALATION Q2H PRN PRN Dyspnea, wheezing Albuterol/Ipratropium 3 ml 10/28/19 15:30 10/31/19 11:15 Duoneb INHALATION 3 ml Q4HWA.RT LAVELLE Administration Atorvastatin Calcium 10 mg 10/28/19 22:00 10/30/19 23:00 Lipitor PO Not Given QHS LAVELLE Bisacodyl 10 mg 10/28/19 16:53 Dulcolax PO DAILY PRN Constipation Calamine/Phenol 1 applic 10/28/19 18:00 10/31/19 07:36 Calmoseptine Ointment TOPICAL 1 applicatio BID LAVELLE Administration Protocol Cholecalciferol 2,000 unit 10/29/19 06:00 10/31/19 07:36 Vitamin D (25mcg) PO Not Given DAILY LAVELLE Dextrose 0 gm 10/30/19 00:11 D50w Syringe IV X1 PRN Hypoglycemia Protocol Glucagon 1 mg 10/28/19 15:27 IM .X1 PRN Hypoglycemia Guaifenesin 10 ml 10/28/19 15:27 Robitussin PO Q4H PRN PRN COUGH Heparin Sodium (Beef Lung) 50 units 10/28/19 19:26 IV UD PRN PICC Line Heparin Flush Levofloxacin 750 mg in 150 mls @ 100 mls/hr 10/29/19 10:00 10/31/19 09:28 Levaquin Iv IV 10/31/19 23:59 100 mls/hr Q24 LAVELLE Administration Metronidazole 500 mg in 100 mls @ 100 mls/hr 10/28/19 22:00 10/31/19 10:25 Flagyl IV 10/31/19 23:59 Infused Q8 LAVELLE Infusion Sodium Chloride 250 mls @ 15 mls/hr 10/29/19 00:05 10/31/19 09:31 IV 15 mls/hr .[id number] PRN Administration SALINE FLUSH Multivitamins 10 ml/ Chromium/ 2,011 mls @ 84 mls/hr 10/30/19 16:00 10/30/19 16:13 Copper/Manganese/Seleni/Zn 1 IV 10/31/19 15:48 84 mls/hr ml/ Folic Acid 1 mg/ Amino .[id number] LAVELLE Administration Acids/Electrolytes Multivitamins 10 ml/ Chromium/ 2,011 mls @ 84 mls/hr 10/31/19 16:00 Copper/Manganese/Seleni/Zn 1 IV 11/01/19 15:48 ml/ Folic Acid 1 mg/ Amino .[id number] LAVELLE Acids/Electrolytes Fat Emulsion Intravenous 250 mls @ 21 mls/hr 10/31/19 16:00 Intralipid 20% IV 11/01/19 03:54 .[id number] [facility] Iron 45 mg 10/29/19 08:00 10/31/19 08:35 Feosol PO Not Given DAILY LAVELLE Loratadine 10 mg 10/29/19 06:00 10/31/19 07:35 Claritin PO Not Given DAILY LAVELLE Metoprolol Tartrate 75 mg 10/28/19 18:00 10/31/19 07:35 Lopressor (Beta Agnieszka) PO Not Given BID [facility] Nitroglycerin 0.4 mg 10/28/19 15:27 Nitrostat SUBLINGUAL Q5M PRN CARDIAC/CHEST PAIN Polyethylene Glycol 17 gm 10/29/19 06:00 10/31/19 07:35 Miralax PO Not Given DAILY [facility] Ranolazine 1,000 mg 10/29/19 06:00 10/31/19 07:35 Ranexa PO Not Given DAILY LAVELLE Senna/Docusate Sodium 2 tablet 10/28/19 18:00 10/31/19 07:35 Senokot-S, Ami-Colace PO Not Given BID LAVLELE Sodium Chloride 10 - 40 ml 10/28/19 19:26 10/30/19 16:17 IV 40 ml UD PRN Administration Open End PICC Flush Sodium Chloride 10 - 40 ml 10/28/19 19:26 0.9% Nacl (Sterile) Posiflush IV UD PRN Port access or dressing change Tuberculin PPD 5 tu 11/05/19 10:00 Tubersol, Aplisol, Ppd ID 11/05/19 10:01 X1 ONE Problem List (Last Reviewed 07/15/18 @ 16:45 by April Hyatt) Debility (Acute) Acute respiratory failure (Acute) Streptococcal pneumonia (Acute) Acute metabolic encephalopathy (Acute) Acute on chronic systolic (congestive) heart failure (Acute) Abdominal aortic aneurysm (Chronic) COPD (chronic obstructive pulmonary disease) (Chronic) PAOD (peripheral arterial occlusive disease) (Chronic) Diabetes mellitus (Chronic) Alcohol abuse (Chronic) Acne rosacea (Chronic) Cervical spinal stenosis (Chronic) Dysphagia (Acute) Vital Signs Temp Pulse Resp BP Pulse Ox 98.3 F 69 18 104/68 97 10/30/19 14:10 10/31/19 11:15 10/31/19 11:15 10/30/19 17:28 10/31/19 06:34 Oxygen Delivery Method Room Air Weight: 59 kg Body Mass Index (BMI) 20.9 Sodium 138 mmol/L (136-145) 10/31/19 05:05 Potassium 3.6 mmol/L (3.5-5.1) 10/31/19 05:05 Chloride 106 mmol/L (98-107) 10/31/19 05:05 Carbon Dioxide 28.0 mmol/L (21.0-32.0) 10/31/19 05:05 Anion Gap 4 (5-15) L 10/31/19 05:05 BUN 20 mg/dL (7-18) H 10/31/19 05:05 Creatinine 0.44 mg/dL (0.70-1.30) L 10/31/19 05:05 Est GFR (MDRD) Af Amer 241 mL/min (>60) 10/31/19 05:05 Est GFR (MDRD) Non-Af 199 mL/min (>60) 10/31/19 05:05 BUN/Creatinine Ratio 44.9 RATIO (10-20) H 10/31/19 05:05 Glucose 116 mg/dL (74-106) H 10/31/19 05:05 Coronary Artery Disease - Metoprolol 75MG BID, Ranexa 1000MG daily, NTG 0.4MG Q5M PRN. COPD - Duoneb 3ML Q4HWA, Ventolin 2.5MG Q2H PRN. Assessment/Plan: 1) Pain: Acetaminophen 1000mg po q6h prn for pain 1-04/14. Please continue to monitor prn usage and for signs/symptoms of increased/decreased pain. 2) Hyperlipidemia: Pt's lipid panel is within normal limits. Pt's LFTs are elevated. Please continue to monitor 3) Allergic rhinitis: Loratadine 10mg po daily. Please continue to monitor for signs/symtoms of allergic rhinitis. 4) Vitamin D Deficiency: Vitamin D3 2000 units po daily. I could not find a recent Vitamin D level in the pt's chart. Please consider a yearly Vitamin D level once the pt is taking po medications. Thanks 5) Nutrition--TPN. Correctional Treatment Specialist to monitor/follow. Pharmacy to follow career services officer recommendations 6) Cough: Robitussin 10ml po q4h prn for cough. Please continue to monitor prn usage and for signs/symptoms of increased/decreased cough. 7) Pneumonia: Levaquin 750mg IV q24h, Metronidazole 500mg IV q8h thru 10/31/2019. Pt's SrCr is 0.44 an CrCl is 56.54. Please continue to monitor. Please continue to monitor for signs/symptoms of infection. Please continue to monitor for signs/symptoms of tendon injury even after Levaquin therapy is completed. Thanks *8) CAD: Metoprolol 75mg po bid, Ranexa 1000mg po daily, Ntg 0.4mg SL q5m prn for chest pain. --Ranexa is usually given Twice Daily or Every 12 hours. According to pt's external fill history, pt has been filling [id number], and has been filling Ranexa 1000mg po 60 for 30 days. Please verify if pt takes once or twice daily. Thanks --Pt's pulse rate and rhythm are within normal limits. Pulse rate is high normal. Please continue to monitor. --Pt's average blood pressure is 99.125/60.25. Please continue to monitor. --Since pt is NPO, a viable option if needed is IV Labetalol. Pt was on this medication while on PCU and tolerated it well. Psychotropic Medications: none Unnecessary Medications: none Bowel Regimen: Bisacodyl 10mg po daily prn for constipation, Miralax 17gm po daily, Senna/Docusate 2 tablets po bid. Please continue to monitor prn usage and for signs/symptoms of constipation/diarrhea. Date of Note:: 10/31/19 - Provider Comments Provider responsibility: Provider responsible to enter orders to implement recommendations <Carlos Rojas Chi - Last Filed: 10/31/19 17:05> Progress Note - Pharmacy Subjective: [] Objective: Allergies VALENTINA Inhibitors Allergy (Verified 10/14/19 00:33) Unknown Penicillins Allergy (Verified 10/14/19 00:33) Unknown Current Medications Generic Name Dose Route Start Last Admin Trade Name Freq PRN Reason Stop Dose Admin Acetaminophen 1,000 mg 10/28/19 16:53 Tylenol PO Q6H PRN PRN Pain Score 1-1010 Albuterol Sulfate 2.5 mg 10/28/19 15:27 Ventolin Aerosols INHALATION Q2H PRN PRN Dyspnea, wheezing Albuterol/Ipratropium 3 ml 10/28/19 15:30 10/31/19 11:15 Duoneb INHALATION 3 ml Q4HWA.RT LAVELLE Administration Atorvastatin Calcium 10 mg 10/28/19 22:00 10/30/19 23:00 Lipitor PO Not Given QHS LAVELLE Bisacodyl 10 mg 10/28/19 16:53 Dulcolax PO DAILY PRN Constipation Calamine/Phenol 1 applic 10/28/19 18:00 10/31/19 07:36 Calmoseptine Ointment TOPICAL 1 applicatio BID LAVELLE Administration Protocol Cholecalciferol 2,000 unit 10/29/19 06:00 10/31/19 07:36 Vitamin D (25mcg) PO Not Given DAILY LAVELLE Dextrose 0 gm 10/30/19 00:11 D50w Syringe IV X1 PRN Hypoglycemia Protocol Glucagon 1 mg 10/28/19 15:27 IM .X1 PRN Hypoglycemia Guaifenesin 10 ml 10/28/19 15:27 Robitussin PO Q4H PRN PRN COUGH Heparin Sodium (Beef Lung) 50 units 10/28/19 19:26 IV UD PRN PICC Line Heparin Flush Levofloxacin 750 mg in 150 mls @ 100 mls/hr 10/29/19 10:00 10/31/19 16:17 Levaquin Iv IV 04/27/20 23:59 Infused Q24 LAVELLE Infusion Metronidazole 500 mg in 100 mls @ 100 mls/hr 10/28/19 22:00 10/31/19 16:17 Flagyl IV 10/31/19 23:59 Infused Q8 LAVELLE Infusion Sodium Chloride 250 mls @ 15 mls/hr 10/29/19 00:05 10/31/19 09:31 IV 15 mls/hr .[id number] PRN Administration SALINE FLUSH Multivitamins 10 ml/ Chromium/ 2,011 mls @ 84 mls/hr 10/31/19 16:00 10/31/19 15:59 Copper/Manganese/Seleni/Zn 1 IV 11/01/19 15:48 84 mls/hr ml/ Folic Acid 1 mg/ Amino .[id number] LAVELLE Administration Acids/Electrolytes Fat Emulsion Intravenous 250 mls @ 21 mls/hr 10/31/19 16:00 10/31/19 17:03 Intralipid 20% IV 11/01/19 03:54 21 mls/hr .[id number] LAVELLE Administration Iron 45 mg 10/29/19 08:00 10/31/19 08:35 Feosol PO Not Given DAILYCM LAVELLE Loratadine 10 mg 10/29/19 06:00 10/31/19 07:35 Claritin PO Not Given DAILY LAVELLE Metoprolol Tartrate 75 mg 10/28/19 18:00 10/31/19 07:35 Lopressor (Beta Agnieszka) PO Not Given BID LAVELLE Nitroglycerin 0.4 mg 10/28/19 15:27 Nitrostat SUBLINGUAL Q5M PRN CARDIAC/CHEST PAIN Polyethylene Glycol 17 gm 10/29/19 06:00 10/31/19 07:35 Miralax PO Not Given DAILY LAVELLE Ranolazine 1,000 mg 10/29/19 06:00 10/31/19 07:35 Ranexa PO Not Given DAILY LAVELLE Senna/Docusate Sodium 2 tablet 10/28/19 18:00 10/31/19 07:35 Senokot-S, Ami-Colace PO Not Given BID LAVELLE Sodium Chloride 10 - 40 ml 10/28/19 19:26 10/30/19 16:17 IV 40 ml UD PRN Administration Open End PICC Flush Sodium Chloride 10 - 40 ml 10/28/19 19:26 0.9% Nacl (Sterile) Posiflush IV UD PRN Port access or dressing change Tuberculin PPD 5 tu 11/05/19 10:00 Tubersol, Aplisol, Ppd ID 11/05/19 10:01 X1 ONE Problem List (Last Reviewed 07/15/18 @ 16:45 by April Hyatt) Debility (Acute) Acute respiratory failure (Acute) Streptococcal pneumonia (Acute) Acute metabolic encephalopathy (Acute) Acute on chronic systolic (congestive) heart failure (Acute) Abdominal aortic aneurysm (Chronic) COPD (chronic obstructive pulmonary disease) (Chronic) PAOD (peripheral arterial occlusive disease) (Chronic) Diabetes mellitus (Chronic) Alcohol abuse (Chronic) Acne rosacea (Chronic) Cervical spinal stenosis (Chronic) Dysphagia (Acute) Vital Signs Temp Pulse Resp BP Pulse Ox 98.4 F 76 16 96/54 L 98 10/31/19 14:28 10/31/19 14:28 10/31/19 14:28 10/31/19 14:28 10/31/19 14:28 Oxygen Delivery Method Room Air Weight: 59 kg Body Mass Index (BMI) 20.9 Sodium 138 mmol/L (136-145) 10/31/19 05:05 Potassium 3.6 mmol/L (3.5-5.1) 10/31/19 05:05 Chloride 106 mmol/L (98-107) 10/31/19 05:05 Carbon Dioxide 28.0 mmol/L (21.0-32.0) 10/31/19 05:05 Anion Gap 4 (5-15) L 10/31/19 05:05 BUN 20 mg/dL (7-18) H 10/31/19 05:05 Creatinine 0.44 mg/dL (0.70-1.30) L 10/31/19 05:05 Est GFR (MDRD) Af Amer 241 mL/min (>60) 10/31/19 05:05 Est GFR (MDRD) Non-Af 199 mL/min (>60) 10/31/19 05:05 BUN/Creatinine Ratio 44.9 RATIO (10-20) H 10/31/19 05:05 Glucose 116 mg/dL (74-106) H 10/31/19 05:05 Assessment/Plan: Psychotropic Medications: Unnecessary Medications: Bowel Regimen: - Provider Comments Provider responsibility: Provider responsible to enter orders to implement recommendations Provider Comments to Recommendations by Pharmacy: Agree
[2019-10-31 13:30] VITALS: BMI 20.9
[2019-10-31 14:28] VITALS: BP 96/54; PULSE 76; RESP 16; TEMP 36.9; O2SAT 98
[2019-10-31 15:50] VITALS: PULSE 104; RESP 14
[2019-10-31 16:21] LABS: Bedside Glucose 109 mg/dL (70-110)
[2019-10-31] MEDS: Fat Emulsions 20% 250 ML IV (17:03)
[2019-10-31 19:15] VITALS: PULSE 100; RESP 16; O2SAT 97
[2019-10-31 20:31] VITALS: PULSE 106; RESP 16; O2SAT 97
[2019-10-31 21:11] LABS: Bedside Glucose 117 mg/dL (70-110)
[2019-11-01 00:31] LABS: Bedside Glucose 124 mg/dL (70-110)
[2019-11-01 06:25] LABS: Bedside Glucose 123 mg/dL (70-110)
[2019-11-01] MEDS: Menthol/Lanolin/Calamine/Znox 113 GM Tube 1 APPLIC TOPICAL ×2 (06:47→18:07)
[2019-11-01 07:39] LABS: Absolute Lymphocyte Count 0.84 X10^3/uL (0.83-4.51); Absolute Neutrophil Count 8.4 X10^3/uL (2.0-7.7); Basophil# 0.03 X10^3/uL; Basophil% 0.3 % (0-1); Eosinophil# 0.13 X10^3/uL; Eosinophils% 1.3 % (0-5); Hematocrit 35.7 % (40-54); Hemoglobin 11.8 g/dL (13.0-16.5); Lymphocyte # 0.84 X10^3/ul (4.0); Lymphocyte % 8.2 % (19-41); Mean Corp Hgb Conc 33.1 g/dL (32-36); Mean Corpuscular Hgb 31.6 pg (27.0-32.0); Mean Corpuscular Volume 95.7 fL (80-94); Mean Platelet Vol. 13.4 fl (6.2-12.0); Monocyte# 0.81 X10^3/uL; Monocyte% 7.9 % (0-10); NRBC Flagged by Analyzer 0 % (0-5); Neutrophil # 8.43 X10^3/uL (2.7-7.7); POSITIVE COUNT YES; RBC Distribution Width CV 13.7 % (11.6-14.6); RBC Distribution Width SD 46.2 fl (35.1-43.9); Red Blood Count 3.73 M/mm3 (4.6-6.2); White Blood Count 10.3 K/mm3 (4.4-11.0)
[2019-11-01 07:41] LABS: Differential Indicated SCAN CRITERIA MET; Platelet Count 47 K/mm3 (150-450)
[2019-11-01 07:54] LABS: ALB/GLOB Ratio 0.7 RATIO (0.9-2.4); AST(SGOT) 35 U/L (15-37); Alanine Aminotransfer ALT/SGPT 66 U/L (16-61); Alkaline Phosphatase 97 U/L (45-117); Anion Gap 3 (5-15); BUN 19 mg/dL (7-18); BUN/Creat Ratio 45.7 RATIO (10-20); Calcium,Total 7.9 mg/dL (8.5-10.1); Chloride 105 mmol/L (98-107); Creatinine, Serum 0.42 mg/dL (0.70-1.30); EST Glomerular Filtration Rate 215 mL/min (>60); Est Glom Filt Rate - Afr Amer 261 mL/min (>60); Estimated Creatinine Clearance 56.54 ml/min; Glucose 84 mg/dL (74-106); Magnesium 1.8 mg/dL (1.6-2.6); Phosphorus 3.1 mg/dL (2.5-4.9); Potassium 3.7 mmol/L (3.5-5.1); Sodium Level 137 mmol/L (136-145)
[2019-11-01 08:06] LABS: Differential Comment SCANNED; Platelet Estimate MKD DEC (ADEQ)
[2019-11-01 08:30] VITALS: PULSE 112; RESP 20
[2019-11-01] MEDS: Ipratropium/Albuterol Sulfate 3 ML AMPUL.NEB INHALATION ×2 (08:30→18:52)
[2019-11-01 09:10] VITALS: PULSE 107; RESP 16; O2SAT 97
--- NOTE | 2019-11-01 09:32 | NURSING ---
PT CLEANED AND ATTENDS CHANGED, TURNED TO RIGHT SIDE. MOUTH CARE GIVEN,NEW MEPILEX TO RIGHT HEEL. POST LOWER LEFT LUNG FINE CRACKLES. RN AWARE.
--- NOTE | 2019-11-01 11:58 | PCM.NTREPORT ---
Nutrition Therapy Report - History Nutrition Services has been consulted to:: Manage parenteral nutrition Current diet / nutrition support order:: 2L 5%AA/20% dextrose w/ 250mL 20% lipid solution - Anthropometric Measurements Height:: 5 ft 6 in Weight:: 54.431 kg Body Mass Index (BMI):: 19.3 - Relevant Labs Relevant Labs:: WBC 11.6 K/mm3 (4.4-11.0) H 10/29/19 06:59 RBC 3.73 M/mm3 (4.6-6.2) L 11/01/19 07:22 Hgb 11.8 g/dL (13.0-16.5) L 11/01/19 07:22 Hct 35.7 % (40-54) L 11/01/19 07:22 MCV 95.7 fL (80-94) H 11/01/19 07:22 MCH 33.6 pg (27.0-32.0) H 10/29/19 06:59 RDW Std Deviation 46.2 fl (35.1-43.9) H 11/01/19 07:22 Plt Count 47 K/mm3 (150-450) L* 11/01/19 07:22 MPV 13.4 fl (6.2-12.0) H 11/01/19 07:22 Neut % (Auto) 82.0 % (47-70) H 11/01/19 07:22 Lymph % (Auto) 8.2 % (19-41) L 11/01/19 07:22 Absolute Neuts (auto) 8.4 X10^3/uL (2.0-7.7) H 11/01/19 07:22 Absolute Lymphs (auto) 0.64 X10^3/uL (0.83-4.51) L 10/31/19 05:05 Sodium 135 mmol/L (136-145) L 10/29/19 06:30 Chloride 108 mmol/L (98-107) H 10/30/19 09:15 Anion Gap 3 (5-15) L 11/01/19 07:22 BUN 19 mg/dL (7-18) H 11/01/19 07:22 Creatinine 0.42 mg/dL (0.70-1.30) L 11/01/19 07:22 BUN/Creatinine Ratio 45.7 RATIO (10-20) H 11/01/19 07:22 Glucose 116 mg/dL (74-106) H 10/31/19 05:05 Calcium 7.9 mg/dL (8.5-10.1) L 11/01/19 07:22 Magnesium 1.5 mg/dL (1.6-2.6) L 10/29/19 06:30 Total Bilirubin 1.10 mg/dL (0.20-1.00) H 11/01/19 07:22 AST 39 U/L (15-37) H 10/31/19 05:05 ALT 66 U/L (16-61) H 11/01/19 07:22 Total Protein 5.0 g/dL (6.4-8.2) L 11/01/19 07:22 Albumin 2.0 g/dL (3.2-5.0) L 11/01/19 07:22 Albumin/Globulin Ratio 0.7 RATIO (0.9-2.4) L 11/01/19 07:22 - Assessment Food / Nutrition-Related History:: 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 Ordered to renew TPN w/o famotidine or insulin. 250mL lipids given yesterday w/ 2L 5% AA/20% dextrose solution to provide 2260 calories, 100 g protein. Last wt was 54.431 on 10/31/19. Daily wts ordered but no wt available at this time. Mag/phos WNL. Triglycerides WNL. - Nutrition Intervention Nutrition Prescription:: [id number] calories, 60-70 g protein - Food / Nutrient Delivery Interventions Summary of nutrition intervention:: Will order TPN today as renewed by provided. No insulin/famotidine per order. Strongly recommend consider PEG placement if pt to remain NPO Nutrition support ordered as / adjusted to:: 2L 5%AA/20% dextrose solution w/ electrolytes to provide 1760 calories, 100 g protein (meets 100% of calorie and estimated protein needs). Nutrition education provided?: No - MNT Monitoring Further MNT monitoring and evaluation required?: Yes MNT Follow-up in:: 1-2 days
[2019-11-01 12:01] VITALS: BMI 19.3
[2019-11-01 12:13] LABS: Pathologist Review Reviewed
[2019-11-01] MEDS: 0.9% Saline Lock 10 ML Syringe IV (13:46)
[2019-11-01 15:15] VITALS: BP 102/64; PULSE 114; RESP 24; TEMP 37.5; O2SAT 97
[2019-11-01 17:15] LABS: Bedside Glucose 109 mg/dL (70-110)
[2019-11-01 18:06] VITALS: BP 102/64; PULSE 114
[2019-11-01 18:08] VITALS: PULSE 100
[2019-11-01 18:52] VITALS: PULSE 106; RESP 18
[2019-11-02] VITALS (7 sets, daily range): BP systolic 99; BP diastolic 66; PULSE 70–108; RESP 16–20; TEMP 36.7; O2SAT 94–99; BMI 19.3
[2019-11-02 02:20] LABS: Bedside Glucose 124 mg/dL (70-110)
[2019-11-02] MEDS: 0.9% Saline Lock 10 ML Syringe IV ×4 (05:29→23:20)
[2019-11-02] MEDS: Menthol/Lanolin/Calamine/Znox 113 GM Tube 1 APPLIC TOPICAL ×2 (05:31→18:22)
[2019-11-02 06:21] LABS: Bedside Glucose 129 mg/dL (70-110)
[2019-11-02] MEDS: Ipratropium/Albuterol Sulfate 3 ML AMPUL.NEB INHALATION ×3 (07:30→18:48)
--- NOTE | 2019-11-02 07:37 | PCM.NTREPORT ---
Nutrition Therapy Report - History Nutrition Services has been consulted to:: Manage parenteral nutrition Current diet / nutrition support order:: 2 L 5%AA 20%Dextrose w/ electrolytes - Anthropometric Measurements Height:: 5 ft 6 in Weight:: 54.431 kg Body Mass Index (BMI):: 19.3 - Relevant Labs Relevant Labs:: WBC 11.6 K/mm3 (4.4-11.0) H 10/29/19 06:59 RBC 3.73 M/mm3 (4.6-6.2) L 11/01/19 07:22 Hgb 11.8 g/dL (13.0-16.5) L 11/01/19 07:22 Hct 35.7 % (40-54) L 11/01/19 07:22 MCV 95.7 fL (80-94) H 11/01/19 07:22 MCH 33.6 pg (27.0-32.0) H 10/29/19 06:59 RDW Std Deviation 46.2 fl (35.1-43.9) H 11/01/19 07:22 Plt Count 47 K/mm3 (150-450) L* 11/01/19 07:22 MPV 13.4 fl (6.2-12.0) H 11/01/19 07:22 Neut % (Auto) 82.0 % (47-70) H 11/01/19 07:22 Lymph % (Auto) 8.2 % (19-41) L 11/01/19 07:22 Absolute Neuts (auto) 8.4 X10^3/uL (2.0-7.7) H 11/01/19 07:22 Absolute Lymphs (auto) 0.64 X10^3/uL (0.83-4.51) L 10/31/19 05:05 Sodium 135 mmol/L (136-145) L 10/29/19 06:30 Chloride 108 mmol/L (98-107) H 10/30/19 09:15 Anion Gap 3 (5-15) L 11/01/19 07:22 BUN 19 mg/dL (7-18) H 11/01/19 07:22 Creatinine 0.42 mg/dL (0.70-1.30) L 11/01/19 07:22 BUN/Creatinine Ratio 45.7 RATIO (10-20) H 11/01/19 07:22 Glucose 116 mg/dL (74-106) H 10/31/19 05:05 Calcium 7.9 mg/dL (8.5-10.1) L 11/01/19 07:22 Magnesium 1.5 mg/dL (1.6-2.6) L 10/29/19 06:30 Total Bilirubin 1.10 mg/dL (0.20-1.00) H 11/01/19 07:22 AST 39 U/L (15-37) H 10/31/19 05:05 ALT 66 U/L (16-61) H 11/01/19 07:22 Total Protein 5.0 g/dL (6.4-8.2) L 11/01/19 07:22 Albumin 2.0 g/dL (3.2-5.0) L 11/01/19 07:22 Albumin/Globulin Ratio 0.7 RATIO (0.9-2.4) L 11/01/19 07:22 - Assessment Food / Nutrition-Related History:: 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 Ordered to renew TPN w/o famotidine or insulin. No lipids given yesterday (M-W-F); 2L 5% AA/20% dextrose solution to provide 1760 calories, 100 g protein. Last wt was 54.431 on 10/31/19. Daily wts ordered but no new wt available at this time. [ End ] - Nutrition Diagnosis Problem / Etiology / Signs & Symptoms (PES):: Inadequate oral intake related to mental status, dysphagia as evidenced by <50% PO intake >5 days. [ End ] Evidence of Malnutrition Exists:: No - Nutrition Intervention Nutrition Prescription:: [id number] arleth / 60-70 gm pro / day - Food / Nutrient Delivery Interventions Summary of nutrition intervention:: As order for renewing TPN is placed daily by physician, RDN will manage nutrient details of TPN and order TPN as indicated.. For 11/01, will order 2L 5%AA/20% dextrose solution w/ electrolytes and 250 cc 20% Lipids to provide 2260 calories, 100 g protein (meets 100% of calorie and estimated protein needs). Per provider order--no insulin, no famotidine added to TPN today. Daily wts. Strongly rec PEG for nutrition as pt with functioning GI system - res less agitated and confused. Nutrition support ordered as / adjusted to:: For 11/01, will order 2L 5%AA/20% dextrose solution w/ electrolytes and 250 cc 20% Lipids to provide 2260 calories, 100 g protein (meets 100% of calorie and estimated protein needs). [ End ] Nutrition education provided?: No - MNT Monitoring Further MNT monitoring and evaluation required?: Yes MNT Follow-up in:: 1-2 days - If questions or concerns, call RD/LD at x [phone]
[2019-11-02 07:55] LABS: Absolute Lymphocyte Count 0.89 X10^3/uL (0.83-4.51); Absolute Neutrophil Count 7.4 X10^3/uL (2.0-7.7); Basophil# 0.03 X10^3/uL; Basophil% 0.3 % (0-1); Eosinophil# 0.16 X10^3/uL; Eosinophils% 1.7 % (0-5); Hematocrit 36.2 % (40-54); Hemoglobin 11.9 g/dL (13.0-16.5); Lymphocyte # 0.89 X10^3/ul (4.0); Lymphocyte % 9.5 % (19-41); Mean Corp Hgb Conc 32.9 g/dL (32-36); Mean Corpuscular Hgb 31.5 pg (27.0-32.0); Mean Corpuscular Volume 95.8 fL (80-94); Mean Platelet Vol. 13.2 fl (6.2-12.0); Monocyte# 0.81 X10^3/uL; Monocyte% 8.7 % (0-10); NRBC Flagged by Analyzer 0 % (0-5); Neutrophil # 7.44 X10^3/uL (2.7-7.7); Neutrophil % 79.6 % (47-70); POSITIVE COUNT YES; Platelet Count 52 K/mm3 (150-450); RBC Distribution Width CV 13.6 % (11.6-14.6); RBC Distribution Width SD 45.6 fl (35.1-43.9); Red Blood Count 3.78 M/mm3 (4.6-6.2); White Blood Count 9.4 K/mm3 (4.4-11.0)
[2019-11-02 08:18] LABS: ALB/GLOB Ratio 0.6 RATIO (0.9-2.4); AST(SGOT) 34 U/L (15-37); Alanine Aminotransfer ALT/SGPT 55 U/L (16-61); Albumin, Serum 2.1 g/dL (3.2-5.0); Alkaline Phosphatase 99 U/L (45-117); Anion Gap 6 (5-15); BUN 24 mg/dL (7-18); BUN/Creat Ratio 64.5 RATIO (10-20); Calcium,Total 8.3 mg/dL (8.5-10.1); Chloride 106 mmol/L (98-107); Creatinine, Serum 0.37 mg/dL (0.70-1.30); EST Glomerular Filtration Rate 245 mL/min (>60); Est Glom Filt Rate - Afr Amer 297 mL/min (>60); Estimated Creatinine Clearance 52.16 ml/min; Globulin 3.4 g/dL (2.2-4.2); Glucose 82 mg/dL (74-106); Protein, Total 5.5 g/dL (6.4-8.2); Sodium Level 140 mmol/L (136-145)
[2019-11-02 08:29] LABS: Differential Indicated SCAN CRITERIA MET
[2019-11-02 08:34] LABS: Platelet Estimate MKD DEC (ADEQ); Red Cell Morphology NORM C+C NORMAL (NORM C&C)
[2019-11-02 09:58] LABS: Pathologist Review Reviewed
--- NOTE | 2019-11-02 11:29 | CASEMGMT ---
Social Work IDT met with patient and via conference call for care plan meeting. Discussed patient's progress in therapy. Pt is dependent x2 for bed mobility and stand pivot transfers. Therapy evaluating pt to be a reece lift for transfers. Pt has not ambulated at this time. Pt has sat EOB for about 5 mins fluctuating from min to max assist depending on fatigue level. Pt is dependent for dressing, bathing and toileting. Pt has been more alert and was able to say a few words to his . Pt is NPO/TPN and physician to discuss peg tube placement. Pt can be resistant to oral care and has difficulty comprehending instructions. Trailing ice chips/water, but still aspirates. ST will attempt cognitive eval when appropriate. Pt continues to receive 1:1 visits with activities, and enjoys listening to country music on CD player in room. Pt is out os isolation 11/10, and O2 PRN. Explained insurance NRD 11/02. explained she is a teacher so she will be home until next school year to assist pt. Explained currently could not assist until he is more independent, and currently recommending a SNF. Discussed SNF options and financial liability. Emailed list of SNFs and Medicaid application. Will continue to follow. JAKOB Lo SPORTS REPORTER
[2019-11-02] MEDS: Fat Emulsions 20% 250 ML IV (15:47)
[2019-11-03] VITALS (8 sets, daily range): BP systolic 85–100; BP diastolic 46–61; PULSE 71–119; RESP 16–21; TEMP 36.8–37; O2SAT 95–98; BMI 19.3
[2019-11-03 00:31] LABS: Bedside Glucose 126 mg/dL (70-110)
[2019-11-03 05:20] LABS: Absolute Lymphocyte Count 0.75 X10^3/uL (0.83-4.51); Absolute Neutrophil Count 7.2 X10^3/uL (2.0-7.7); Basophil# 0.06 X10^3/uL; Basophil% 0.7 % (0-1); Eosinophil# 0.17 X10^3/uL; Eosinophils% 1.9 % (0-5); Hematocrit 34.4 % (40-54); Hemoglobin 11.5 g/dL (13.0-16.5); Lymphocyte # 0.75 X10^3/ul (4.0); Lymphocyte % 8.4 % (19-41); Mean Corp Hgb Conc 33.4 g/dL (32-36); Mean Corpuscular Hgb 32.6 pg (27.0-32.0); Mean Corpuscular Volume 97.5 fL (80-94); Mean Platelet Vol. 12.7 fl (6.2-12.0); Monocyte# 0.71 X10^3/uL; NRBC Flagged by Analyzer 0 % (0-5); Neutrophil # 7.17 X10^3/uL (2.7-7.7); Neutrophil % 80.7 % (47-70); POSITIVE COUNT YES; Platelet Count 51 K/mm3 (150-450); RBC Distribution Width CV 13.9 % (11.6-14.6); RBC Distribution Width SD 46.6 fl (35.1-43.9); Red Blood Count 3.53 M/mm3 (4.6-6.2); White Blood Count 8.9 K/mm3 (4.4-11.0)
[2019-11-03 05:41] LABS: ALB/GLOB Ratio 0.6 RATIO (0.9-2.4); AST(SGOT) 34 U/L (15-37); Alanine Aminotransfer ALT/SGPT 48 U/L (16-61); Alkaline Phosphatase 104 U/L (45-117); Anion Gap 4 (5-15); BUN 20 mg/dL (7-18); BUN/Creat Ratio 54.3 RATIO (10-20); Calcium,Total 8.4 mg/dL (8.5-10.1); Chloride 105 mmol/L (98-107); Creatinine, Serum 0.37 mg/dL (0.70-1.30); EST Glomerular Filtration Rate 248 mL/min (>60); Est Glom Filt Rate - Afr Amer 300 mL/min (>60); Estimated Creatinine Clearance 52.16 ml/min; Globulin 3.4 g/dL (2.2-4.2); Glucose 122 mg/dL (74-106); Potassium 3.9 mmol/L (3.5-5.1); Protein, Total 5.4 g/dL (6.4-8.2); Sodium Level 138 mmol/L (136-145)
[2019-11-03] MEDS: Menthol/Lanolin/Calamine/Znox 113 GM Tube 1 APPLIC TOPICAL ×2 (05:44→16:19)
[2019-11-03 06:16] LABS: Bedside Glucose 134 mg/dL (70-110)
[2019-11-03] MEDS: Ipratropium/Albuterol Sulfate 3 ML AMPUL.NEB INHALATION ×4 (07:25→19:30)
[2019-11-03] MEDS: 0.9% Saline Lock 10 ML Syringe IV (08:45)
[2019-11-03] MEDS: 0.9% Normal Saline 1,000 ML 999 ML IV (08:45)
--- NOTE | 2019-11-03 09:30 | RAD_ITS ---
STUDY: X-RAY - ABDOMEN/PELVIS REASON FOR EXAM: Male, 69 years old. reps failure, sepsis pneumonia, aspiration, pain TECHNIQUE: Single AP view of the abdomen / pelvis. COMPARISON: Comparison is made with prior study dated October 14, 2019. FINDINGS: Normal visualized lung bases. There is an unremarkable bowel gas pattern. There is no demonstrated free abdominal air. The visualized liver, spleen and kidneys are grossly normal in size and morphology. Vascular calcification. Surgical clips are seen in the left midabdomen. Normal visualized osseous structures. RAD/Abdomen Single View IMPRESSION: Vascular calcification. No acute abnormality is seen. Electronically Signed: Flaco Gale, at 11:00 EDT , Service support ,
--- NOTE | 2019-11-03 09:30 | RAD_ITS ---
STUDY: X-RAY CHEST REASON FOR EXAM: Male, 69 years old. resp failure, sepsis pneumonia, aspiration, pain TECHNIQUE: AP and lateral views of the chest. COMPARISON: Comparison is made with prior examination dated October 24, 2019. FINDINGS: A right-sided PICC line catheter is seen with the tip at the junction of the superior vena cava and right atrium. Surgical clips are seen in the cervical region. Since prior study, there has been improved aeration of both lungs. Minimal residual changes persist in the right upper lobe and posteromedial segment of the left lower lobe. Small bilateral pleural effusions. There is mild cardiac enlargement. Normal mediastinum and taco. Normal visualized pulmonary arteries. There is atherosclerotic calcification of the aortic arch with tortuosity. Normal visualized thoracic spine. Normal visualized ribs, clavicles, and shoulders. There is no demonstrated abnormality of the visualized soft tissue structures of the upper abdomen. RAD/Chest PA and Lateral IMPRESSION: Since prior study, there has been improved aeration of both lungs with mild residual changes seen in the right upper lobe as well as at the left lung base. Stable scarring in the peripheral aspect of the left upper lobe. Electronically Signed: Flaco Gale, at 11:07 EDT , Service support ,
[2019-11-03 10:36] LABS: Bacteria 0 SEEN /hpf (None Seen); Mucous, Urine 0 SEEN /hpf (<or=2+); Red Blood Cells-Urine 0 SEEN /hpf (0-5); Squamous Epithelial Cells - UA 0 SEEN /hpf (0-5); White Blood Cells 0 SEEN /hpf (0-5)
[2019-11-03 10:41] LABS: Color, Urine Yellow (Yellow); Glucose, Dipstick Normal (Normal); Ketone-Dipstick Negative (Negative); Leukocyte Esterase-Dipstick Negative /ul (Negative); Nitrite-Dipstick Negative (Negative); Occult Blood-Urine Negative /ul (Negative); Protein-Dipstick Negative (Negative); Urine Bilirubin Dipstick Negative (Negative); Urine Clarity Clear (Clear); Urine Urobilinogen Normal (Normal)
[2019-11-03 13:36] LABS: Bedside Glucose 82 mg/dL (70-110)
--- NOTE | 2019-11-03 13:52 | NT.THERAPY_ITS ---
Nutrition Therapy Report - History Nutrition Services has been consulted to:: Manage parenteral nutrition Current diet / nutrition support order:: NPO; TPN- 2L 5%AA/20% dextrose solution w/ electrolyes, 250mL 20% lipid solution - Anthropometric Measurements Height:: 5 ft 6 in Weight:: 54.488 kg Body Mass Index (BMI):: 19.3 - Relevant Labs Relevant Labs:: WBC 11.6 K/mm3 (4.4-11.0) H 10/29/19 06:59 RBC 3.53 M/mm3 (4.6-6.2) L 11/03/19 05:10 Hgb 11.5 g/dL (13.0-16.5) L 11/03/19 05:10 Hct 34.4 % (40-54) L 11/03/19 05:10 MCV 97.5 fL (80-94) H 11/03/19 05:10 MCH 32.6 pg (27.0-32.0) H 11/03/19 05:10 RDW Std Deviation 46.6 fl (35.1-43.9) H 11/03/19 05:10 Plt Count 51 K/mm3 (150-450) L 11/03/19 05:10 MPV 12.7 fl (6.2-12.0) H 11/03/19 05:10 Neut % (Auto) 80.7 % (47-70) H 11/03/19 05:10 Lymph % (Auto) 8.4 % (19-41) L 11/03/19 05:10 Absolute Neuts (auto) 8.4 X10^3/uL (2.0-7.7) H 11/01/19 07:22 Absolute Lymphs (auto) 0.75 X10^3/uL (0.83-4.51) L 11/03/19 05:10 Sodium 135 mmol/L (136-145) L 10/29/19 06:30 Chloride 108 mmol/L (98-107) H 10/30/19 09:15 Anion Gap 4 (5-15) L 11/03/19 05:10 BUN 20 mg/dL (7-18) H 11/03/19 05:10 Creatinine 0.37 mg/dL (0.70-1.30) L 11/03/19 05:10 BUN/Creatinine Ratio 54.3 RATIO (10-20) H 11/03/19 05:10 Glucose 122 mg/dL (74-106) H 11/03/19 05:10 Calcium 8.4 mg/dL (8.5-10.1) L 11/03/19 05:10 Magnesium 1.5 mg/dL (1.6-2.6) L 10/29/19 06:30 Total Bilirubin 1.40 mg/dL (0.20-1.00) H 11/02/19 07:40 AST 39 U/L (15-37) H 10/31/19 05:05 ALT 66 U/L (16-61) H 11/01/19 07:22 Total Protein 5.4 g/dL (6.4-8.2) L 11/03/19 05:10 Albumin 2.0 g/dL (3.2-5.0) L 11/03/19 05:10 Albumin/Globulin Ratio 0.6 RATIO (0.9-2.4) L 11/03/19 05:10 - Assessment Food / Nutrition-Related History:: Res working w/ [employer]- remains NPO. Surgery consulted for PEG placement. Ordered to renew TPN w/o famotidine or insulin. 250mL lipids given yesterday (--) with 2L 5% AA/20% dextrose solution to provide 2260 calories, 100 g protein. Wt is stable, ~54 kg. - Nutrition Diagnosis Evidence of Malnutrition Exists:: No - Nutrition Intervention Nutrition Prescription:: [id number] calories/day 60-70 g protein - Food / Nutrient Delivery Interventions Summary of nutrition intervention:: Will order TPN for 11/02 as renewed by provider Nutrition support ordered as / adjusted to:: 2L 5% AA/20% dextrose solution w/ electrolytes. No insulin/famotidine per provider. Nutrition education provided?: No - MNT Monitoring Further MNT monitoring and evaluation required?: Yes MNT Follow-up in:: 1-2 days
--- NOTE | 2019-11-03 14:29 | NURSING ---
Addendum entered by Janee Pradhan 11/03/19 15:41: pt to be down to surgery at 0700 Original Note: Dr Willson obtained verbal consent from via phone for PEG placement tomorrow. scheduling will call with time.
--- NOTE | 2019-11-03 14:31 | PCM.CONS.GEN ---
Problem List (1) Debility Status: Acute (2) Acute metabolic encephalopathy Status: Acute (3) Dysphagia Status: Acute Qualifiers: Dysphagia type: unspecified Qualified Code(s): R13.10 - Dysphagia, unspecified Reason for Consult Date of Consultation: 11/03/19 Reason for Consultation: Need for feeding tube History of Present Illness: The patient is a 69 year old M who was admitted for respiratory distress. Following prolonged intubation the patient developed encephalopathy and has been confused. He has been in the TCU on TPN since discharge. He is unable to tolerate PO diet. Past Medical History Past Medical History (Chronic Problems): Chronic Problems Abdominal aortic aneurysm (Chronic) COPD (chronic obstructive pulmonary disease) (Chronic) PAOD (peripheral arterial occlusive disease) (Chronic) Diabetes mellitus (Chronic) Alcohol abuse (Chronic) Acne rosacea (Chronic) Cervical spinal stenosis (Chronic) Thrombocytopenia (Chronic) CAD (coronary artery disease) (Chronic) PAD (peripheral artery disease) (Chronic) HTN (hypertension) (Chronic) HLD (hyperlipidemia) (Chronic) Diabetes mellitus, type II (Chronic) Heavy alcohol consumption (Chronic) Former tobacco use (Chronic) Medical History: Medical History (Last Reviewed 07/15/18 @ 16:45 by April Hyatt) Anemia D64.9 Back pain M54.9 Brain aneurysm I67.1 COPD (chronic obstructive pulmonary disease) J44.9 Chest pain R07.9 Difficulty balancing R29.818 Heart disease I51.9 Limb weakness R29.898 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 SOB (shortness of breath) R06.02 HTN (hypertension) I10 Allergies [facility] Inhibitors Allergy (Verified 10/14/19 00:33) Unknown Penicillins Allergy (Verified 10/14/19 00:33) Unknown Home Medications: Ambulatory Orders Medication Instructions Recorded metoprolol tartrate 50 mg tablet 1.5 tab PO BID 30 Days #90 07/20/17 ranolazine 1,000 mg 1 tab PO DAILY 30 Days #60 07/20/17 tablet,extended release,12 hr Cholecalciferol (Vitamin D3) 2,000 unit PO DAILY 10/14/19 [Vitamin D3] Fexofenadine HCl 180 mg PO DAILY 10/14/19 Iron Carbonyl [Feosol] 45 mg PO DAILYCM 10/14/19 Rosuvastatin Calcium 5 mg PO DAILY 10/14/19 Acetaminophen [Tylenol Tablet] 650 mg PO Q6H PRN PRN tab 10/28/19 Albuterol Aerosols [Ventolin 2.5 mg INHALATION Q2H PRN PRN 10/28/19 Aerosols] vial.neb. Glucagon 1 mg IM .X1 PRN syringe 10/28/19 Guaifenesin [Robitussin] 10 ml PO Q4H PRN PRN udc 10/28/19 Insulin Lispro [Humalog KwikPen] See Protocol SUBCUT Q6 10/28/19 Ipratropium/Albuterol Sulfate 3 ml INHALATION Q4HWA.RT 10/28/19 [Duoneb] Labetalol [Trandate] 10 mg IV Q4H 10/28/19 Menthol/Lanolin/Calamine/Znox 1 applic TOPICAL BID 10/28/19 [Calmoseptine Ointment] Nitroglycerin (INPATIENT USE) 0.4 mg SUBLINGUAL Q5M PRN tab.subl 10/28/19 [Nitrostat] Senna/Docusate Sodium [Senokot-S] 2 tab PO BID PRN PRN tab 10/28/19 levoFLOXacin IV [Levaquin 750mg 750 mg IV Q24 10/28/19 IVPB] metroNIDAZOLE [Flagyl IVPB] 500 mg IV Q8 10/28/19 Surgical History: Surgical History (Last Reviewed 07/15/18 @ 16:45 by April Hyatt) H/O carotid endarterectomy Z98.890 H/O cataract extraction Z98.49 H/O heart bypass surgery Z98.890, Z95.1 Surgical History: cataract, coronary bypass surgery - x 2., tonsillectomy, - - Bilateral carotid endarterectomy, 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 Psychiatric History: Anxiety, Depression Lives: Spouse/ Significant Other Smoking Status: Former smoker Tobacco Use: Non-smoker Alcohol: Heavy Drugs: None - *Family History Maternal History Items: Heart Disease, Hypertension Paternal History Items: Heart Disease, Hypertension Review of Systems Unable to obtain accurate/complete ROS d/t: patient being obtunded Patient Problems: Active and Suspected Problems (Last Reviewed 07/15/18 @ 16:45 by April Hyatt) Debility (Acute) Acute respiratory failure (Acute) Streptococcal pneumonia (Acute) Acute metabolic encephalopathy (Acute) Acute on chronic systolic (congestive) heart failure (Acute) Dysphagia (Acute) - Physical Exam Vitals/I&O's: Vital Signs Temp Pulse Resp BP Pulse Ox 98.2 F 119 H 16 100/46 L 98 11/03/19 14:29 11/03/19 14:29 11/03/19 14:29 11/03/19 14:29 11/03/19 14:29 Oxygen Delivery Method Room Air Weight: 120 lb 2.008 oz Body Mass Index (BMI) 19.3 Intake and Output for Last 24 Hours 11/01/19 11/02/19 11/03/19 23:59 23:59 23:59 Intake Total 3011 / 3011 2105.2 / 2105.2 1250 / 1250 Balance 3011 / 3011 2105.2 / 2105.2 1250 / 1250 General: No apparent distress Neck: No JVD Cardiovascular: Regular rate, Regular Rhythm Abdomen: Soft, Non Tender, Non-Distended Laboratory Results 11/03/19 00:24: POC Glucose 126 H 11/03/19 05:10: WBC 8.9, RBC 3.53 L, Hgb 11.5 L, Hct 34.4 L, MCV 97.5 H, MCH 32.6 H, MCHC 33.4, RDW Std Deviation 46.6 H, RDW Coeff of Xenia 13.9, Plt Count 51 L, MPV 12.7 H, Immature Gran % (Auto) 0.300, Neut % (Auto) 80.7 H, Lymph % (Auto) 8.4 L, [place] % (Auto) 8.0, Eos % (Auto) 1.9, Baso % (Auto) 0.7, Absolute Neuts (auto) 7.2, Absolute Lymphs (auto) 0.75 L, Nucleated RBC % 0 11/03/19 05:10: Sodium 138, Potassium 3.9, Chloride 105, Carbon Dioxide 29.0, Anion Gap 4 L, BUN 20 H, Creatinine 0.37 L, Estim Creat Clear Calc 52.16, Est GFR (MDRD) Af Amer 300, Est GFR (MDRD) Non-Af 248, BUN/Creatinine Ratio 54.3 H, Glucose 122 H, Calcium 8.4 L, Total Bilirubin 0.90, AST 34, ALT 48, Alkaline Phosphatase 104, Total Protein 5.4 L, Albumin 2.0 L, Globulin 3.4, Albumin/Globulin Ratio 0.6 L 11/03/19 06:01: POC Glucose 134 H 11/03/19 08:45: Ammonia 13.0 11/03/19 10:20: Urine Color Yellow, Urine Clarity Clear, Urine pH 7.0, Ur Specific [place] 1.010, Urine Protein Negative, Urine Glucose (UA) Normal, Urine Ketones Negative, Urine Occult Blood Negative, Urine Nitrite Negative, Urine Bilirubin Negative, Urine Urobilinogen Normal, Ur Leukocyte Esterase Negative, Urine RBC 0 SEEN, Urine WBC 0 SEEN, Ur Squamous Epith Cells 0 SEEN, Urine Bacteria 0 SEEN, Urine Mucus 0 SEEN 11/03/19 13:31: POC Glucose 82 Current Medications Acetaminophen (Tylenol) 1,000 mg PO Q6H PRN PRN PRN Reason: Pain Score 1-10/10 Albuterol Sulfate (Ventolin Aerosols) 2.5 mg INHALATION Q2H PRN PRN PRN Reason: Dyspnea, wheezing Albuterol/Ipratropium (Duoneb) 3 ml INHALATION Q4HWA.RT [facility] Last Admin: 11/03/19 11:14 Dose: 3 ml Documented by: Atorvastatin Calcium (Lipitor) 10 mg PO QHS [facility] Last Admin: 11/02/19 05:33 Dose: Not Given Documented by: Bisacodyl (Dulcolax) 10 mg PO DAILY PRN PRN Reason: Constipation Calamine/Phenol (Calmoseptine Ointment) 1 applic TOPICAL BID [facility]; Protocol Last Admin: 11/03/19 05:44 Dose: 1 applicatio Documented by: Cholecalciferol (Vitamin D (25mcg)) 2,000 unit PO DAILY [facility] Last Admin: 11/02/19 20:43 Dose: Not Given Documented by: Dextrose (D50w Syringe) 0 gm IV X1 PRN; Protocol PRN Reason: Hypoglycemia Glucagon () 1 mg IM .X1 PRN PRN Reason: Hypoglycemia Guaifenesin (Robitussin) 10 ml PO Q4H PRN PRN PRN Reason: COUGH Heparin Sodium (Beef Lung) () 50 units IV UD PRN PRN Reason: PICC Line Heparin Flush Sodium Chloride () 250 mls @ 15 mls/hr IV .[id number] PRN PRN Reason: SALINE FLUSH Last Infusion: 11/01/19 08:46 Dose: Infused Documented by: Multivitamins 10 ml/ Chromium/Copper/Manganese/Seleni/Zn 1 ml/ Folic Acid 1 mg/ Amino Acids/Electrolytes 2,011 mls @ 84 mls/hr IV .[id number] [facility] Stop: 11/03/19 15:48 Last Admin: 11/02/19 15:46 Dose: 84 mls/hr Documented by: Multivitamins 10 ml/ Chromium/Copper/Manganese/Seleni/Zn 1 ml/ Folic Acid 1 mg/ Amino Acids/Electrolytes 2,011 mls @ 84 mls/hr IV .[id number] [facility] Stop: 11/04/19 15:48 [facility]) [facility] Last Admin: 11/03/19 07:55 Dose: Not Given Documented by: Loratadine (Claritin) 10 mg PO DAILY [facility] Last Admin: 11/02/19 20:44 Dose: Not Given Documented by: Metoprolol Tartrate (Lopressor (Beta Agnieszka)) 75 mg PO BID [facility] Last Admin: 11/02/19 20:44 Dose: Not Given Documented by: Nitroglycerin (Nitrostat) 0.4 mg SUBLINGUAL Q5M PRN PRN Reason: CARDIAC/CHEST PAIN Orphenadrine Citrate (Norflex) 60 mg IV BID PRN PRN Reason: Neck pain Polyethylene Glycol (Miralax) 17 gm PO DAILY [facility] Last Admin: 11/02/19 20:43 Dose: Not Given Documented by: Ranolazine (Ranexa) 1,000 mg PO DAILY [facility] Last Admin: 11/02/19 20:43 Dose: Not Given Documented by: Senna/Docusate Sodium (Senokot-S, Ami-Colace) 2 tablet PO BID [facility] Last Admin: 11/02/19 20:43 Dose: Not Given Documented by: Sodium Chloride () 10 - 40 ml IV UD PRN PRN Reason: Open End PICC Flush Last Admin: 11/03/19 08:45 Dose: 40 ml Documented by: Sodium Chloride (0.9% Nacl (Sterile) Posiflush) 10 - 40 ml IV UD PRN PRN Reason: Port access or dressing change Tuberculin PPD (Tubersol, Aplisol, Ppd) 5 tu ID [id number] Stop: 11/05/19 10:01 Assessment/Plan All Active Problems (Last Reviewed 07/15/18 @ 16:45 by April Hyatt) Hypernatremia (Acute) Debility (Acute) Acute respiratory failure (Acute) Streptococcal pneumonia (Acute) Acute metabolic encephalopathy (Acute) Acute on chronic systolic (congestive) heart failure (Acute) Dysphagia (Acute) Severe sepsis (Acute) Acute on chronic respiratory failure with hypoxia (Acute) COPD exacerbation (Acute) Bilateral pneumonia (Acute) Suspected 2019 novel coronavirus infection (Acute) Pneumonia of both lower lobes (Acute) Respiratory failure (Acute) Bronchitis (Acute) URI (upper respiratory infection) (Acute) Sinusitis, acute maxillary (Acute) 69 yo Male with dysphagia and inability to eat 1. Patient is still confused today. I was consulted for PEG placement due to the patient being on prolonged TPN and having confusion. I discussed PEG placement in detail with the patient's . I discussed the risk associated with EGD including but not limited to bleeding, perforation, infection, injury to colon or bowel, tube dislodgement. The patients gave verbal consent on his behalf. 2. Plan for PEG placement tomorrow morning. Abx have been ordered. Dylon Willson MD Essential Procedure Criteria Procedure Essential: Yes Criteria Note: On 09/20/2019 the [place] Department of Health ([facility]) Public Order signed by [facility] Director Esther Cohen M.D., regarding the Management of Non-Essential Surgeries and Procedures for the purpose of preserving Personal Protective Equipment (PPE) and critical hospital capacity and resources within [place] went into effect as of 09/21/2019 at 5:00PM. According to the [facility] Public Order: This action will remain in full force and effect until the State of Emergency declared by the Governor no longer exists or the Director of the [facility] rescinds or modifies this Order.. This [facility] order stated all non-essential or elective surgeries and procedures that utilize PPE should be delayed unless there is undue risk to the current or future health of a patient. After reviewing the aforementioned [facility] Public Order and the patients clinical case, I have determined that the scheduled procedure meets the criteria to go forward. Risk to Patient if Procedure Delayed: Threat to patient's life if surgery or procedure is delayed
--- NOTE | 2019-11-03 15:48 | NURSING ---
Surgery called and is requesting patient has duoneb treatment prior to going to surgery on 11/03 at 7am. RN aware
[2019-11-03 18:35] LABS: Bedside Glucose 98 mg/dL (70-110)
[2019-11-04] VITALS (7 sets, daily range): BP systolic 102–116; BP diastolic 64–73; PULSE 82–114; RESP 16–20; TEMP 37.4–37.6; O2SAT 95–100; BMI 19.3
[2019-11-04 00:20] LABS: Bedside Glucose 112 mg/dL (70-110)
[2019-11-04 03:52] LABS: Absolute Lymphocyte Count 0.62 X10^3/uL (0.83-4.51); Absolute Neutrophil Count 6.5 X10^3/uL (2.0-7.7); Basophil# 0.03 X10^3/uL; Basophil% 0.4 % (0-1); Eosinophil# 0.26 X10^3/uL; Eosinophils% 3.3 % (0-5); Hematocrit 33.3 % (40-54); Hemoglobin 10.9 g/dL (13.0-16.5); Lymphocyte # 0.62 X10^3/ul (4.0); Lymphocyte % 7.8 % (19-41); Mean Corp Hgb Conc 32.7 g/dL (32-36); Mean Corpuscular Volume 97.7 fL (80-94); Mean Platelet Vol. 12.5 fl (6.2-12.0); Monocyte# 0.52 X10^3/uL; Monocyte% 6.5 % (0-10); NRBC Flagged by Analyzer 0 % (0-5); Neutrophil # 6.49 X10^3/uL (2.7-7.7); Neutrophil % 81.7 % (47-70); POSITIVE COUNT YES; Platelet Count 51 K/mm3 (150-450); RBC Distribution Width CV 13.7 % (11.6-14.6); RBC Distribution Width SD 47.1 fl (35.1-43.9); Red Blood Count 3.41 M/mm3 (4.6-6.2); White Blood Count 7.9 K/mm3 (4.4-11.0)
[2019-11-04 03:57] LABS: Differential Indicated SCAN CRITERIA MET
[2019-11-04 04:05] LABS: ALB/GLOB Ratio 0.5 RATIO (0.9-2.4); AST(SGOT) 52 U/L (15-37); Alanine Aminotransfer ALT/SGPT 55 U/L (16-61); Albumin, Serum 1.8 g/dL (3.2-5.0); Alkaline Phosphatase 118 U/L (45-117); Anion Gap 5 (5-15); BUN 22 mg/dL (7-18); BUN/Creat Ratio 53.4 RATIO (10-20); Chloride 103 mmol/L (98-107); Creatinine, Serum 0.41 mg/dL (0.70-1.30); EST Glomerular Filtration Rate 218 mL/min (>60); Est Glom Filt Rate - Afr Amer 264 mL/min (>60); Estimated Creatinine Clearance 52.22 ml/min; Globulin 3.6 g/dL (2.2-4.2); Glucose 114 mg/dL (74-106); Potassium 3.9 mmol/L (3.5-5.1); Protein, Total 5.4 g/dL (6.4-8.2); Sodium Level 137 mmol/L (136-145)
[2019-11-04] MEDS: Menthol/Lanolin/Calamine/Znox 113 GM Tube 1 APPLIC TOPICAL ×2 (04:59→21:24)
[2019-11-04 05:31] LABS: Bedside Glucose 119 mg/dL (70-110)
[2019-11-04 05:38] LABS: Platelet Estimate MKD DEC (ADEQ)
[2019-11-04] MEDS: Ipratropium/Albuterol Sulfate 3 ML AMPUL.NEB INHALATION ×4 (06:10→18:30)
--- NOTE | 2019-11-04 10:26 | NURSING ---
Notified Dr. Rojas of patient return from surgery for PEG tube placement. Received order to consult Dietitian for TPN weaning and PEG tube feeding.
[2019-11-04 11:25] LABS: Bedside Glucose 118 mg/dL (70-110)
--- NOTE | 2019-11-04 12:08 | PCM.NTREPORT ---
Nutrition Therapy Report - History Nutrition Services has been consulted to:: Manage parenteral nutrition, Manage enteral nutrition Current diet / nutrition support order:: NPO; 2L 5% AA/20% dextrose solution w/ electrolytes. - Anthropometric Measurements Height:: 5 ft 6 in Weight:: 54.488 kg Body Mass Index (BMI):: 19.3 - Relevant Labs Relevant Labs:: WBC 11.6 K/mm3 (4.4-11.0) H 10/29/19 06:59 RBC 3.41 M/mm3 (4.6-6.2) L 11/04/19 03:45 Hgb 10.9 g/dL (13.0-16.5) L 11/04/19 03:45 Hct 33.3 % (40-54) L 11/04/19 03:45 MCV 97.7 fL (80-94) H 11/04/19 03:45 MCH 32.6 pg (27.0-32.0) H 11/03/19 05:10 RDW Std Deviation 47.1 fl (35.1-43.9) H 11/04/19 03:45 Plt Count 51 K/mm3 (150-450) L 11/04/19 03:45 MPV 12.5 fl (6.2-12.0) H 11/04/19 03:45 Neut % (Auto) 81.7 % (47-70) H 11/04/19 03:45 Lymph % (Auto) 7.8 % (19-41) L 11/04/19 03:45 Absolute Neuts (auto) 8.4 X10^3/uL (2.0-7.7) H 11/01/19 07:22 Absolute Lymphs (auto) 0.62 X10^3/uL (0.83-4.51) L 11/04/19 03:45 Sodium 135 mmol/L (136-145) L 10/29/19 06:30 Chloride 108 mmol/L (98-107) H 10/30/19 09:15 Anion Gap 4 (5-15) L 11/03/19 05:10 BUN 22 mg/dL (7-18) H 11/04/19 03:45 Creatinine 0.41 mg/dL (0.70-1.30) L 11/04/19 03:45 BUN/Creatinine Ratio 53.4 RATIO (10-20) H 11/04/19 03:45 Glucose 114 mg/dL (74-106) H 11/04/19 03:45 Calcium 8.0 mg/dL (8.5-10.1) L 11/04/19 03:45 Magnesium 1.5 mg/dL (1.6-2.6) L 10/29/19 06:30 Total Bilirubin 1.10 mg/dL (0.20-1.00) H 11/04/19 03:45 AST 52 U/L (15-37) H 11/04/19 03:45 ALT 66 U/L (16-61) H 11/01/19 07:22 Alkaline Phosphatase 118 U/L (45-117) H 11/04/19 03:45 Total Protein 5.4 g/dL (6.4-8.2) L 11/04/19 03:45 Albumin 1.8 g/dL (3.2-5.0) L 11/04/19 03:45 Albumin/Globulin Ratio 0.5 RATIO (0.9-2.4) L 11/04/19 03:45 - Assessment Food / Nutrition-Related History:: Res s/p PEG placement. RDN received consult for TPN and TF management- recieved consult to begin weaning TPN and start to intitiate TF this day. TPN yesterday, 11/02: 2L 5% AA/20% dextrose solution to provide 1760 calories, 100 g protein. Lipids given (M-W-F). 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 Surgery for PEG placement planned for this day. Wt is stable, ~54 kg. Last wt taken 11/02, no new wt to assess this day. - Nutrition Diagnosis Evidence of Malnutrition Exists:: No - Nutrition Intervention Nutrition Prescription:: [id number] calories, 60-70 g protein, 1700 ml fluid. - Food / Nutrient Delivery Interventions Summary of nutrition intervention:: Will order TPN for 11/03 as renewed by provider and will order TF. Nutrition support ordered as / adjusted to:: For 11/03 TPN:1L 4.25%AA/10% dextrose solution w/ electrolytes. 250 ml 20% lipid solution. No insulin, no famotidine added to TPN today. Tube Feed:Vital AF 1.2 at 5ml/hr every 6-8 hrs as pt tolerates until goal rate of 25 ml/hr is achieved. Rec 35ml H2O flush every 4 hours. TPN and TF will meet 100% of pt nutrition needs and provide in total 1730 calories, 87 g protein, 1697 ml fluid. Nutrition education provided?: No - MNT Monitoring Further MNT monitoring and evaluation required?: Yes MNT Follow-up in:: 1-2 days
--- NOTE | 2019-11-04 12:39 | NURSING ---
Notified Dr. Rojas of pt c/o of pain, received order for 1 mg morphine IV one time dose. Order repeated back, will add order.
[2019-11-04] MEDS: Morphine 2 MG/ML Syringe 1 MG IV (13:20)
[2019-11-04] MEDS: Fat Emulsions 20% 250 ML IV (16:19)
[2019-11-04] MEDS: 0.9% Saline Lock 10 ML Syringe IV (16:26)
[2019-11-04] MEDS: Morphine 2 MG/ML Syringe IV (16:26)
[2019-11-04 18:11] LABS: Bedside Glucose 124 mg/dL (70-110)
--- NOTE | 2019-11-04 21:15 | NURSING ---
Called into pt room by CNC MILL SET UP OPERATOR to assess, pt moaning and crying out with any movement, difficult to assess pain d/t mental status. Pt skin pale, warm and dry, see vitals, lungs cta, hr tachy, adb not distended, no drainage noted from around peg tube. Dr. Willson called and discussed with him, he states that peg placement went fine and call Dr. Rojas.
--- NOTE | 2019-11-04 21:20 | NURSING ---
Addendum entered by Ashanti Laureano 11/04/19 21:23: PEG site looks good, no bruising or drainage at this time. Original Note: pt complaint of pain, moaning, screaming out in pain. vs: bp 94/58, hr 133- tachy and can hear heart beat in abd, 02 95, temp 100.8. RN aware. will continue to monitor.
--- NOTE | 2019-11-04 21:25 | NURSING ---
Dr. Rojas notified of vitals, pt condition and discussed with Dr. Willson. Ordered to have pt sent to ED for evaluation.
--- NOTE | 2019-11-04 21:40 | NURSING ---
Report called to Sharona in ED, pt transported to ED via bed.
--- NOTE | 2019-11-05 00:40 | NURSING ---
Janee called and updated on pt condition, admit to [facility].
--- NOTE | 2019-11-05 12:02 | DCINST_ITS ---
You will use the following diet at home:: Other - NPO. Discharge Activity: Return to Normal Activity, Use Walker Weight Bearing Status: Weight bearing as tolerated Call your doctor if you observe: Fever of 101 or Higher, Inability to urinate, Inability to have a bowel movement, Shortness of breath, Chest pain, Uncontrolled pain Allergies/Adverse Reactions: Allergies [facility] Inhibitors Allergy (Verified 11/04/19 22:19) Unknown Penicillins Allergy (Verified 11/04/19 22:19) Unknown Medications to take at Discharge metoprolol tartrate 50 mg tablet 1.5 tab PO BID 30 Days #90 07/20/17 ranolazine 1,000 mg tablet,extended release,12 hr 1 tab PO DAILY 30 Days #60 07/20/17 Cholecalciferol (Vitamin D3) [Vitamin D3] 2,000 unit PO DAILY 10/14/19 Fexofenadine HCl 180 mg PO DAILY 10/14/19 Iron Carbonyl [Feosol] 45 mg PO DAILYCM 10/14/19 Rosuvastatin Calcium 5 mg PO DAILY 10/14/19 Acetaminophen [Tylenol Tablet] 650 mg PO Q6H PRN PRN tab 10/28/19 Albuterol Aerosols [Ventolin Aerosols] 2.5 mg INHALATION Q2H PRN PRN vial.neb. 10/28/19 Glucagon 1 mg IM .X1 PRN syringe 10/28/19 Guaifenesin [Robitussin] 10 ml PO Q4H PRN PRN udc 10/28/19 Insulin Lispro [Humalog KwikPen] See Protocol SUBCUT Q6 10/28/19 Ipratropium/Albuterol Sulfate [Duoneb] 3 ml INHALATION Q4HWA.RT 10/28/19 Labetalol [Trandate] 10 mg IV Q4H 10/28/19 Menthol/Lanolin/Calamine/Znox [Calmoseptine Ointment] 1 applic TOPICAL BID 10/28/19 Nitroglycerin (INPATIENT USE) [Nitrostat] 0.4 mg SUBLINGUAL Q5M PRN tab.subl 10/28/19 Senna/Docusate Sodium [Senokot-S] 2 tab PO BID PRN PRN tab 10/28/19 levoFLOXacin IV [Levaquin 750mg IVPB] 750 mg IV Q24 10/28/19 metroNIDAZOLE [Flagyl IVPB] 500 mg IV Q8 10/28/19 Primary Care Physician: GERSON LORENZANA [Other] Please follow up with your Primary Care Physician in: 1 week. Test Results: Test results from this visit will be discussed in further detail at your follow- up appointment, if applicable. Proposed Discharge Date: 11/05/19
--- NOTE | 2019-11-05 12:05 | DS.PCM_ITS ---
Discharge Date and Diagnosis Date of Admission: 10/28/19 Date of Discharge: 11/05/19 - Secondary Discharge Diagnosis Chronic Problems Debility (Chronic) Abdominal aortic aneurysm (Chronic) COPD (chronic obstructive pulmonary disease) (Chronic) PAOD (peripheral arterial occlusive disease) (Chronic) Diabetes mellitus (Chronic) Alcohol abuse (Chronic) Acne rosacea (Chronic) Cervical spinal stenosis (Chronic) Thrombocytopenia (Chronic) CAD (coronary artery disease) (Chronic) PAD (peripheral artery disease) (Chronic) HTN (hypertension) (Chronic) HLD (hyperlipidemia) (Chronic) Diabetes mellitus, type II (Chronic) Heavy alcohol consumption (Chronic) Former tobacco use (Chronic) Hospital Course and Treatment Imaging Results: Clinical Impression(s) from Imaging Studies Chest X-Ray 11/03/19 09:30 IMPRESSION: Since prior study, there has been improved aeration of both lungs with mild residual changes seen in the right upper lobe as well as at the left lung base. Stable scarring in the peripheral aspect of the left upper lobe. Electronically Signed: Flaco Gale, at 11:07 EDT , Service support , KUB X-Ray 11/03/19 09:30 IMPRESSION: Vascular calcification. No acute abnormality is seen. Electronically Signed: Flaco Gale, at 11:00 EDT , Service support , Labs (Last 48 Hours) 11/03/19 11/03/19 11/04/19 13:31 18:33 00:16 WBC RBC Hgb Hct MCV MCH MCHC RDW Std Deviation RDW Coeff of Xenia Plt Count MPV Immature Gran % (Auto) Neut % (Auto) Lymph % (Auto) Grant % (Auto) Eos % (Auto) Baso % (Auto) Absolute Neuts (auto) Absolute Lymphs (auto) Nucleated RBC % Platelet Estimate Sodium Potassium Chloride Carbon Dioxide Anion Gap BUN Creatinine Estim Creat Clear Calc Est GFR (MDRD) Af Amer Est GFR (MDRD) Non-Af BUN/Creatinine Ratio Glucose Calcium Total Bilirubin AST ALT Alkaline Phosphatase Total Protein Albumin Globulin Albumin/Globulin Ratio POC Glucose 82 98 112 H 11/04/19 11/04/19 11/04/19 03:45 03:45 05:22 WBC 7.9 RBC 3.41 L Hgb 10.9 L Hct 33.3 L MCV 97.7 H MCH 32.0 MCHC 32.7 RDW Std Deviation 47.1 H RDW Coeff of Xenia 13.7 Plt Count 51 L MPV 12.5 H Immature Gran % (Auto) 0.300 Neut % (Auto) 81.7 H Lymph % (Auto) 7.8 L Grant % (Auto) 6.5 Eos % (Auto) 3.3 Baso % (Auto) 0.4 Absolute Neuts (auto) 6.5 Absolute Lymphs (auto) 0.62 L Nucleated RBC % 0 Platelet Estimate MKD DEC Sodium 137 Potassium 3.9 Chloride 103 Carbon Dioxide 29.0 Anion Gap 5 BUN 22 H Creatinine 0.41 L Estim Creat Clear Calc 52.22 Est GFR (MDRD) Af Amer 264 Est GFR (MDRD) Non-Af 218 BUN/Creatinine Ratio 53.4 H Glucose 114 H Calcium 8.0 L Total Bilirubin 1.10 H AST 52 H ALT 55 Alkaline Phosphatase 118 H Total Protein 5.4 L Albumin 1.8 L Globulin 3.6 Albumin/Globulin Ratio 0.5 L POC Glucose 119 H 11/04/19 11/04/19 11:21 18:01 WBC RBC Hgb Hct MCV MCH MCHC RDW Std Deviation RDW Coeff of Xenia Plt Count MPV Immature Gran % (Auto) Neut % (Auto) Lymph % (Auto) Grant % (Auto) Eos % (Auto) Baso % (Auto) Absolute Neuts (auto) Absolute Lymphs (auto) Nucleated RBC % Platelet Estimate Sodium Potassium Chloride Carbon Dioxide Anion Gap BUN Creatinine Estim Creat Clear Calc Est GFR (MDRD) Af Amer Est GFR (MDRD) Non-Af BUN/Creatinine Ratio Glucose Calcium Total Bilirubin AST ALT Alkaline Phosphatase Total Protein Albumin Globulin Albumin/Globulin Ratio POC Glucose 118 H 124 H Microbiology 11/03/19 10:20 Urine, Catheterized Urine Culture - Final Culture exhibits no growth. Operations: None Procedures: None Summary of Care Provided: The patient is a 69 year old Male with below past medical history hospitalized for bilateral pneumonia, acute respiratory failure requiring intubation, complicated by encephalopathy, transaminitis, hypernatremia, dysphagia, abdominal free air, thrombocytopenia, admitted to TCU with debility, here for rehabilitation, strengthening, prior to discharge home with . 11/03/2019 Resident more confused, labs, urine, Chest X-ray, KUB negative, CT abdomen/pelvis showed resolution of pneumoperitoneum. 11/04/2019 Resident underwent uncomplicated PEG placement, afterwards, resident had increasing generalized pain not well controlled despite intravenous morphine. Resident more restless at night, developed low grade fever. 11/05/2019 Discharge to [facility] Emergency Department for evaluation, admission to hospital. - Physical Exam Vitals/I&O's: Vital Signs Temp Pulse Resp BP Pulse Ox 99.7 F H 108 H 18 102/64 95 11/04/19 14:30 11/04/19 18:30 11/04/19 18:30 11/04/19 16:57 11/04/19 14:30 Oxygen Delivery Method Room Air Weight: 54.488 kg Body Mass Index (BMI) 19.3 Intake and Output for Last 24 Hours 11/03/19 11/04/19 11/05/19 23:59 23:59 23:59 Intake Total 3007 / 3007 Output Total 6 / 6 Balance 3001 / 3001 Microbiology Past 72 Hours 11/03/19 10:20 Urine, Catheterized Urine Culture - Final Culture exhibits no growth. Laboratory Results 11/04/19 18:01: POC Glucose 124 H Discharge Diet: - - NPO. Discharge Activity: Return to Normal Activity, Use Walker Weight Bearing Status: Weight bearing as tolerated Call your doctor if you observe: Fever of 101 or Higher, Inability to urinate, Inability to have a bowel movement, Shortness of breath, Chest pain, Uncontrolled pain Home Medications: Medications to take at Discharge metoprolol tartrate 50 mg tablet 1.5 tab PO BID 30 Days #90 07/20/17 ranolazine 1,000 mg tablet,extended release,12 hr 1 tab PO DAILY 30 Days #60 07/20/17 Cholecalciferol (Vitamin D3) [Vitamin D3] 2,000 unit PO DAILY 10/14/19 Fexofenadine HCl 180 mg PO DAILY 10/14/19 Iron Carbonyl [Feosol] 45 mg PO DAILYCM 10/14/19 Rosuvastatin Calcium 5 mg PO DAILY 10/14/19 Acetaminophen [Tylenol Tablet] 650 mg PO Q6H PRN PRN tab 10/28/19 Albuterol Aerosols [Ventolin Aerosols] 2.5 mg INHALATION Q2H PRN PRN vial.neb. 10/28/19 Glucagon 1 mg IM .X1 PRN syringe 10/28/19 Guaifenesin [Robitussin] 10 ml PO Q4H PRN PRN udc 10/28/19 Insulin Lispro [Humalog KwikPen] See Protocol SUBCUT Q6 10/28/19 Ipratropium/Albuterol Sulfate [Duoneb] 3 ml INHALATION Q4HWA.RT 10/28/19 Labetalol [Trandate] 10 mg IV Q4H 10/28/19 Menthol/Lanolin/Calamine/Znox [Calmoseptine Ointment] 1 applic TOPICAL BID 10/28/19 Nitroglycerin (INPATIENT USE) [Nitrostat] 0.4 mg SUBLINGUAL Q5M PRN tab.subl 10/28/19 Senna/Docusate Sodium [Senokot-S] 2 tab PO BID PRN PRN tab 10/28/19 levoFLOXacin IV [Levaquin 750mg IVPB] 750 mg IV Q24 10/28/19 metroNIDAZOLE [Flagyl IVPB] 500 mg IV Q8 10/28/19 Primary Care Physician: GERSON LORENZANA [Other] Please follow up with your Primary Care Physician in: 1 week. Disposition: Acute care Hospital Minutes spent on discharge:: 30 Patient Condition:: Guarded Medical Necessity - Tobacco Use Smoking Status: Former smoker Tobacco Use: Non-smoker Meaningful Use Info Meaningful Use Diagnoses (Choose all that apply): None applicable
== END 2019-11-05 00:41 | disposition short-term general hospital (02) | DRG 190 ==
PROVIDERS: Admitting Provider Family Medicine Geriatric Medicine; Visit Provider Family Medicine Geriatric Medicine
DX: J44.0 Chronic obstructive pulmonary disease with (acute) lower respiratory infection (principal); J15.4 Pneumonia due to other streptococci; G93.41 Metabolic encephalopathy; I50.22 Chronic systolic (congestive) heart failure; J96.11 Chronic respiratory failure with hypoxia; D50.9 Iron deficiency anemia, unspecified; I25.10 Atherosclerotic heart disease of native coronary artery without angina pectoris; E78.5 Hyperlipidemia, unspecified; E11.51 Type 2 diabetes mellitus with diabetic peripheral angiopathy without gangrene; I11.0 Hypertensive heart disease with heart failure; Z87.891 Personal history of nicotine dependence; E55.9 Vitamin D deficiency, unspecified; Z23 Encounter for immunization; F10.10 Alcohol abuse, uncomplicated; F41.9 Anxiety disorder, unspecified; F32.9 Major depressive disorder, single episode, unspecified; R13.10 Dysphagia, unspecified; D69.6 Thrombocytopenia, unspecified
CPT/HCPCS: 36415; 71046; 74018; 80053; 81001; 82140; 82962; 83735; 84100; 84478; 85025; 87086; 92507; 92526; 92610; 94640; 97110; 97163; 97167; 97530; 97535; 97802; 97803; J7030; J7050; 90670; A4216

== ENCOUNTER → 2019-11-03 11:50 | Outpatient (CLI) | payer OTHER, SELFPAY ==
[2019-11-02 07:44] VITALS: BMI 19.3
--- NOTE | 2019-11-03 11:53 | CT_ITS ---
STUDY: CT ABDOMEN AND PELVIS WITH CONTRAST REASON FOR EXAM: Male, 69 years old. Eval for free air for PEG tube placement. Recently hospitalized respiratory failure with bilateral pneumonia, COPD, prior left renal artery aneurysm with bypass, AAA. RADIATION DOSAGE (If Supplied By Facility): CTDIvol = ( 17.26 ) mGy, DLP = ( 596.50 ) mGycm TECHNIQUE: Transaxial images were obtained from the dome of the diaphragm to the symphysis pubis without oral contrast. IV 100mL Isovue-300 was administered. Sagittal and coronal images were reconstructed. Individualized dose optimization techniques were used for this CT. COMPARISON: Comparison is made with prior study dated October 25, 2019. FINDINGS: Bilateral pleural effusions left greater than right. These have decreased since prior study. Bibasilar atelectasis and linear scar.. Coronary artery calcification. Minimal degree of free intraperitoneal air is seen along the anterior medial aspect of the left lobe of the liver. This has decreased as compared to prior study. Normal liver. Normal gallbladder and extrahepatic biliary system. Normal spleen. Normal pancreas. Normal bilateral adrenal glands. Stable 1.4 cm right renal cyst. Normal left kidney. The stomach is collapsed. No oral contrast is seen within the stomach. This limits the evaluation. Normal small intestine. Large amount of fecal material is seen in the rectosigmoid colon. The appendix is visualized and appears normal. There is diffuse atherosclerotic calcification of the abdominal aorta. Stable infrarenal abdominal aortic aneurysm with a transverse dimension of 5.1 cm. Stable mural thrombus. Stable dense calcification of the iliac arteries bilaterally. Normal inferior vena cava. Normal retroperitoneum. Bladder wall thickening. Normal abdominal wall. There are diffuse degenerative changes of the visualized lumbar spine. CT/Abdomen/Pelvis WITH Contrast IMPRESSION: Minimal amount of residual free air seen medial to the left lobe of the liver. Bilateral pleural effusions left greater than right with bibasilar atelectasis and basilar scarring which has improved. The remainder of the examination is unchanged. Electronically Signed: Flaco Gale at 12:34 EDT , Service support ,
== END ==
PROVIDERS: Referring Provider Family Medicine Geriatric Medicine; Visit Provider Family Medicine Geriatric Medicine
DX: K66.8 Other specified disorders of peritoneum (principal)
CPT/HCPCS: 74177; Q9967; A4216

== ENCOUNTER 2019-11-04 07:07 | Day surgery (SDC) | payer OTHER, SELFPAY ==
[2019-11-03 13:54] VITALS: BMI 19.3
[2019-11-04 07:12] VITALS: BP 109/64; PULSE 109; RESP 15; TEMP 36.8; O2SAT 98; BMI 19.3
[2019-11-04] MEDS: Lactated Ringers 1,000 ML 100 ML IV (07:29)
--- NOTE | 2019-11-04 08:12 | PCM.HP.BLA ---
Problem List (1) Debility Status: Acute (2) Dysphagia Status: Acute Qualifiers: Dysphagia type: unspecified (3) Thrombocytopenia Status: Chronic History and Physical Date of Admission: 11/04/19 Problem List (1) Debility Status: Acute (2) Acute metabolic encephalopathy Status: Acute (3) Dysphagia Status: Acute Qualifiers: Dysphagia type: unspecified Qualified Code(s): R13.10 - Dysphagia, unspecified Reason for Consult Date of Consultation: 11/03/19 Reason for Consultation: Need for feeding tube History of Present Illness: The patient is a 69 year old M who was admitted for respiratory distress. Following prolonged intubation the patient developed encephalopathy and has been confused. He has been in the TCU on TPN since discharge. He is unable to tolerate PO diet. Past Medical History Past Medical History (Chronic Problems): Chronic Problems Abdominal aortic aneurysm (Chronic) COPD (chronic obstructive pulmonary disease) (Chronic) PAOD (peripheral arterial occlusive disease) (Chronic) Diabetes mellitus (Chronic) Alcohol abuse (Chronic) Acne rosacea (Chronic) Cervical spinal stenosis (Chronic) Thrombocytopenia (Chronic) CAD (coronary artery disease) (Chronic) PAD (peripheral artery disease) (Chronic) HTN (hypertension) (Chronic) HLD (hyperlipidemia) (Chronic) Diabetes mellitus, type II (Chronic) Heavy alcohol consumption (Chronic) Former tobacco use (Chronic) Medical History: Medical History (Last Reviewed 07/15/18 @ 16:45 by April Hyatt) Anemia D64.9 Back pain M54.9 Brain aneurysm I67.1 COPD (chronic obstructive pulmonary disease) J44.9 Chest pain R07.9 Difficulty balancing R29.818 Heart disease I51.9 Limb weakness R29.898 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 SOB (shortness of breath) R06.02 HTN (hypertension) I10 Allergies VALENTINA Inhibitors Allergy (Verified 10/14/19 00:33) Unknown Penicillins Allergy (Verified 10/14/19 00:33) Unknown Home Medications: Ambulatory Orders Medication Instructions Recorded metoprolol tartrate 50 mg tablet 1.5 tab PO BID 30 Days #90 07/20/17 ranolazine 1,000 mg 1 tab PO DAILY 30 Days #60 07/20/17 tablet,extended release,12 hr Cholecalciferol (Vitamin D3) 2,000 unit PO DAILY 10/14/19 [Vitamin D3] Fexofenadine HCl 180 mg PO DAILY 10/14/19 Iron Carbonyl [Feosol] 45 mg PO DAILYCM 10/14/19 Rosuvastatin Calcium 5 mg PO DAILY 10/14/19 Acetaminophen [Tylenol Tablet] 650 mg PO Q6H PRN PRN tab 10/28/19 Albuterol Aerosols [Ventolin 2.5 mg INHALATION Q2H PRN PRN 10/28/19 Aerosols] vial.neb. Glucagon 1 mg IM .X1 PRN syringe 10/28/19 Guaifenesin [Robitussin] 10 ml PO Q4H PRN PRN udc 10/28/19 Insulin Lispro [Humalog KwikPen] See Protocol SUBCUT Q6 10/28/19 Ipratropium/Albuterol Sulfate 3 ml INHALATION Q4HWA.RT 10/28/19 [Duoneb] Labetalol [Trandate] 10 mg IV Q4H 10/28/19 Menthol/Lanolin/Calamine/Znox 1 applic TOPICAL BID 10/28/19 [Calmoseptine Ointment] Nitroglycerin (INPATIENT USE) 0.4 mg SUBLINGUAL Q5M PRN tab.subl 10/28/19 [Nitrostat] Senna/Docusate Sodium [Senokot-S] 2 tab PO BID PRN PRN tab 10/28/19 levoFLOXacin IV [Levaquin 750mg 750 mg IV Q24 10/28/19 IVPB] metroNIDAZOLE [Flagyl IVPB] 500 mg IV Q8 10/28/19 Surgical History: Surgical History (Last Reviewed 07/15/18 @ 16:45 by April Hyatt) H/O carotid endarterectomy Z98.890 H/O cataract extraction Z98.49 H/O heart bypass surgery Z98.890, Z95.1 Surgical History: cataract, coronary bypass surgery - x 2., tonsillectomy, - - Bilateral carotid endarterectomy, 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 Psychiatric History: Anxiety, Depression Lives: Spouse/ Significant Other Smoking Status: Former smoker Tobacco Use: Non-smoker Alcohol: Heavy Drugs: None - *Family History Maternal History Items: Heart Disease, Hypertension Paternal History Items: Heart Disease, Hypertension Review of Systems Unable to obtain accurate/complete ROS d/t: patient being obtunded Patient Problems: Active and Suspected Problems (Last Reviewed 07/15/18 @ 16:45 by April Hyatt) Debility (Acute) Acute respiratory failure (Acute) Streptococcal pneumonia (Acute) Acute metabolic encephalopathy (Acute) Acute on chronic systolic (congestive) heart failure (Acute) Dysphagia (Acute) - Physical Exam Vitals/I&O's: Vital Signs Temp Pulse Resp BP Pulse Ox 98.2 F 119 H 16 100/46 L 98 11/03/19 14:29 11/03/19 14:29 11/03/19 14:29 11/03/19 14:29 11/03/19 14:29 Oxygen Delivery Method Room Air Weight: 120 lb 2.008 oz Body Mass Index (BMI) 19.3 Intake and Output for Last 24 Hours 11/01/19 11/02/19 11/03/19 23:59 23:59 23:59 Intake Total 3011 / 3011 2105.2 / 2105.2 1250 / 1250 Balance 3011 / 3011 2105.2 / 2105.2 1250 / 1250 General: No apparent distress Neck: No JVD Cardiovascular: Regular rate, Regular Rhythm Abdomen: Soft, Non Tender, Non-Distended Laboratory Results 11/03/19 00:24: POC Glucose 126 H 11/03/19 05:10: WBC 8.9, RBC 3.53 L, Hgb 11.5 L, Hct 34.4 L, MCV 97.5 H, MCH 32.6 H, MCHC 33.4, RDW Std Deviation 46.6 H, RDW Coeff of Xenia 13.9, Plt Count 51 L, MPV 12.7 H, Immature Gran % (Auto) 0.300, Neut % (Auto) 80.7 H, Lymph % (Auto) 8.4 L, Campbell % (Auto) 8.0, Eos % (Auto) 1.9, Baso % (Auto) 0.7, Absolute Neuts (auto) 7.2, Absolute Lymphs (auto) 0.75 L, Nucleated RBC % 0 11/03/19 05:10: Sodium 138, Potassium 3.9, Chloride 105, Carbon Dioxide 29.0, Anion Gap 4 L, BUN 20 H, Creatinine 0.37 L, Estim Creat Clear Calc 52.16, Est GFR (MDRD) Af Amer 300, Est GFR (MDRD) Non-Af 248, BUN/Creatinine Ratio 54.3 H, Glucose 122 H, Calcium 8.4 L, Total Bilirubin 0.90, AST 34, ALT 48, Alkaline Phosphatase 104, Total Protein 5.4 L, Albumin 2.0 L, Globulin 3.4, Albumin/Globulin Ratio 0.6 L 11/03/19 06:01: POC Glucose 134 H 11/03/19 08:45: Ammonia 13.0 11/03/19 10:20: Urine Color Yellow, Urine Clarity Clear, Urine pH 7.0, Ur Specific [place] 1.010, Urine Protein Negative, Urine Glucose (UA) Normal, Urine Ketones Negative, Urine Occult Blood Negative, Urine Nitrite Negative, Urine Bilirubin Negative, Urine Urobilinogen Normal, Ur Leukocyte Esterase Negative, Urine RBC 0 SEEN, Urine WBC 0 SEEN, Ur Squamous Epith Cells 0 SEEN, Urine Bacteria 0 SEEN, Urine Mucus 0 SEEN 11/03/19 13:31: POC Glucose 82 Current Medications Acetaminophen (Tylenol) 1,000 mg PO Q6H PRN PRN PRN Reason: Pain Score 1-10/10 Albuterol Sulfate (Ventolin Aerosols) 2.5 mg INHALATION Q2H PRN PRN PRN Reason: Dyspnea, wheezing Albuterol/Ipratropium (Duoneb) 3 ml INHALATION Q4HWA.RT [facility] Last Admin: 11/03/19 11:14 Dose: 3 ml Documented by: Atorvastatin Calcium (Lipitor) 10 mg PO QHS [facility] Last Admin: 11/02/19 05:33 Dose: Not Given Documented by: Bisacodyl (Dulcolax) 10 mg PO DAILY PRN PRN Reason: Constipation Calamine/Phenol (Calmoseptine Ointment) 1 applic TOPICAL BID [facility]; Protocol Last Admin: 11/03/19 05:44 Dose: 1 applicatio Documented by: Cholecalciferol (Vitamin D (25mcg)) 2,000 unit PO DAILY [facility] Last Admin: 11/02/19 20:43 Dose: Not Given Documented by: Dextrose (D50w Syringe) 0 gm IV X1 PRN; Protocol PRN Reason: Hypoglycemia Glucagon () 1 mg IM .X1 PRN PRN Reason: Hypoglycemia Guaifenesin (Robitussin) 10 ml PO Q4H PRN PRN PRN Reason: COUGH Heparin Sodium (Beef Lung) () 50 units IV UD PRN PRN Reason: PICC Line Heparin Flush Sodium Chloride () 250 mls @ 15 mls/hr IV .[id number] PRN PRN Reason: SALINE FLUSH Last Infusion: 11/01/19 08:46 Dose: Infused Documented by: Multivitamins 10 ml/ Chromium/Copper/Manganese/Seleni/Zn 1 ml/ Folic Acid 1 mg/ Amino Acids/Electrolytes 2,011 mls @ 84 mls/hr IV .[id number] [facility] Stop: 11/03/19 15:48 Last Admin: 11/02/19 15:46 Dose: 84 mls/hr Documented by: Multivitamins 10 ml/ Chromium/Copper/Manganese/Seleni/Zn 1 ml/ Folic Acid 1 mg/ Amino Acids/Electrolytes 2,011 mls @ 84 mls/hr IV .[id number] [facility] Stop: 11/04/19 15:48 [facility]) [facility] Last Admin: 11/03/19 07:55 Dose: Not Given Documented by: Loratadine (Claritin) 10 mg PO DAILY [facility] Last Admin: 11/02/19 20:44 Dose: Not Given Documented by: Metoprolol Tartrate (Lopressor (Beta Agnieszka)) 75 mg PO BID [facility] Last Admin: 11/02/19 20:44 Dose: Not Given Documented by: Nitroglycerin (Nitrostat) 0.4 mg SUBLINGUAL Q5M PRN PRN Reason: CARDIAC/CHEST PAIN Orphenadrine Citrate (Norflex) 60 mg IV BID PRN PRN Reason: Neck pain Polyethylene Glycol (Miralax) 17 gm PO DAILY [facility] Last Admin: 11/02/19 20:43 Dose: Not Given Documented by: Ranolazine (Ranexa) 1,000 mg PO DAILY [facility] Last Admin: 11/02/19 20:43 Dose: Not Given Documented by: Senna/Docusate Sodium (Senokot-S, Ami-Colace) 2 tablet PO BID [facility] Last Admin: 11/02/19 20:43 Dose: Not Given Documented by: Sodium Chloride () 10 - 40 ml IV UD PRN PRN Reason: Open End PICC Flush Last Admin: 11/03/19 08:45 Dose: 40 ml Documented by: Sodium Chloride (0.9% Nacl (Sterile) Posiflush) 10 - 40 ml IV UD PRN PRN Reason: Port access or dressing change Tuberculin PPD (Tubersol, Aplisol, Ppd) 5 tu ID X1 ONE Stop: 11/05/19 10:01 Assessment/Plan All Active Problems (Last Reviewed 07/15/18 @ 16:45 by April Hyatt) Hypernatremia (Acute) Debility (Acute) Acute respiratory failure (Acute) Streptococcal pneumonia (Acute) Acute metabolic encephalopathy (Acute) Acute on chronic systolic (congestive) heart failure (Acute) Dysphagia (Acute) Severe sepsis (Acute) Acute on chronic respiratory failure with hypoxia (Acute) COPD exacerbation (Acute) Bilateral pneumonia (Acute) Suspected 2019 novel coronavirus infection (Acute) Pneumonia of both lower lobes (Acute) Respiratory failure (Acute) Bronchitis (Acute) URI (upper respiratory infection) (Acute) Sinusitis, acute maxillary (Acute) 69 yo Male with dysphagia and inability to eat 1. Patient is still confused today. I was consulted for PEG placement due to the patient being on prolonged TPN and having confusion. I discussed PEG placement in detail with the patient's . I discussed the risk associated with EGD including but not limited to bleeding, perforation, infection, injury to colon or bowel, tube dislodgement. The patients gave verbal consent on his behalf. 2. Plan for PEG placement tomorrow morning. Abx have been ordered. Dylon Willson MD I explained endoscopy in detail to the patient's . I explained the risks including but not limited to stroke or heart attack with anesthesia, perforation of the GI tract, bleeding, infection. I explained that any of these could necessitate further emergency surgery. The patient's understands and all questions were answered sufficiently. They wish to proceed with procedure. I have re-examined the patient. There are no clinical changes since date of exam. Dylon Willson MD Pager: [facility] [address] [place] [address], [address] [place] [address] Office:
--- NOTE | 2019-11-04 08:49 | OP.CCLET_ITS ---
11/04/2019 Shakira Re : Upper GI endoscopy procedure for Ned Rosenberg This procedure was performed on Monday, November 04, 2019. My impressions and recommendations are as follows: Impressions : - Normal esophagus. - Normal stomach. - Normal examined duodenum. - An externally removable PEG placement was successfully completed. - No specimens collected. Recommendations : - Discharge patient to a senior care. - Please follow the post-PEG recommendations including: Nutrition consult for formula and volume, advance food and medications per primary care provider, external bolster snug to abdominal wall, change dressing once per day, may use PEG tomorrow for feedings, check site for bleeding q 4 hrs and clean site with soap and water daily and dry thoroughly. - Continue present medications. My findings are described in the full procedure note, which is enclosed. If I can be of further assistance, please feel free to contact me at Doctor phone number(s): , Work: . Sincerely, Dylon Willson MD 11/04/2019 8:48:55 AM This report has been signed electronically.
--- NOTE | 2019-11-04 08:49 | OP.EGD_ITS ---
Patient Name: Ned Awad Procedure Date: 11/04/2019 8:05 AM Date of : 1950 Age: 69 Procedure: Upper GI endoscopy Indications: Dysphagia Providers: Dylon Willson MD Medicines: Monitored Anesthesia Care Patient Profile: This is a 69 year old male. Refer to note in patient chart for documentation of history and physical. Complications: No immediate complications. Estimated blood loss: Minimal. Procedure: Pre-Anesthesia Assessment: - Prior to the procedure, a History and Physical was performed, and patient medications and allergies were reviewed. The patient's tolerance of previous anesthesia was also reviewed. The risks and benefits of the procedure and the sedation options and risks were discussed with the patient. All questions were answered, and informed consent was obtained. Prior Anticoagulants: The patient has taken no previous anticoagulant or antiplatelet agents. After reviewing the risks and benefits, the patient was deemed in satisfactory condition to undergo the procedure. After obtaining informed consent, the endoscope was passed under direct vision. Throughout the procedure, the patient's blood pressure, pulse, and oxygen saturations were monitored continuously. The gastroscope was introduced through the mouth, and advanced to the second part of duodenum. The upper GI endoscopy was accomplished without difficulty. The patient tolerated the procedure well. Scope In: 8:31:58 AM Scope Out: 8:39:34 AM Total Procedure Duration Time 0 hours 7 minutes 36 seconds Findings: The esophagus was normal. The stomach was normal. The examined duodenum was normal. The patient was placed in the supine position for PEG placement. The stomach was insufflated to appose gastric and abdominal rodríguez. A site was located in the antrum of the stomach with excellent transillumination and manual external pressure for placement. The abdominal wall was marked and prepped in a sterile manner. The area was anesthetized with 4 mL of 0.5% lidocaine. The trocar needle was introduced through the abdominal wall and into the stomach under direct endoscopic view. A snare was introduced through the endoscope and opened in the gastric lumen. The guide wire was passed through the trocar and into the open snare. The snare was closed around the guide wire. The endoscope and snare were removed, pulling the wire out through the mouth. A skin incision was made at the site of needle insertion. The externally removable 20 Fr EndoVive Safety gastrostomy tube was lubricated. The G-tube was tied to the guide wire and pulled through the mouth and into the stomach. The trocar needle was removed, and the gastrostomy tube was pulled out from the stomach through the skin. The external bumper was attached to the gastrostomy tube, and the tube was cut to remove the guide wire. The final position of the gastrostomy tube was confirmed by relook endoscopy, and skin marking noted to be 2 cm at the external bumper. The final tension and compression of the abdominal wall by the PEG tube and external bumper were checked and revealed that the bumper was loose and lightly touching the skin and that the PEG balloon was loose and lightly touching the stomach. The feeding tube was capped, and the tube site cleaned and dressed. Impression: - Normal esophagus. - Normal stomach. - Normal examined duodenum. - An externally removable PEG placement was successfully completed. - No specimens collected. Recommendation: - Discharge patient to a correction. - Please follow the post-PEG recommendations including: Nutrition consult for formula and volume, advance food and medications per primary care provider, external bolster snug to abdominal wall, change dressing once per day, may use PEG tomorrow for feedings, check site for bleeding q 4 hrs and clean site with soap and water daily and dry thoroughly. - Continue present medications. Procedure Code(s): --- Professional --- 64395, Esophagogastroduodenoscopy, flexible, transoral; with directed placement of percutaneous gastrostomy tube Diagnosis Code(s): --- Professional --- R13.10, Dysphagia, unspecified CPT copyright 2017 [employer]. All rights reserved. The codes documented in this report are preliminary and upon cordwood cutter review may be revised to meet current compliance requirements. Dylon Willson MD 11/04/2019 8:48:55 AM This report has been signed electronically. Number of Addenda: 0 Note Initiated On: 11/04/2019 8:05 AM
[2019-11-04 08:51] VITALS: BP 109/64; BP 90/71; PULSE 106; RESP 18; TEMP 37.6; O2SAT 100
[2019-11-04 08:56] VITALS: BP 109/64; BP 88/72; PULSE 105; RESP 18; O2SAT 98
[2019-11-04 09:01] VITALS: BP 109/64; BP 85/58; PULSE 104; RESP 18; O2SAT 99
[2019-11-04 09:06] VITALS: BP 109/64; BP 99/59; PULSE 103; RESP 18; O2SAT 100
[2019-11-04 09:11] VITALS: BP 109/64; BP 83/56; PULSE 107; RESP 18; TEMP 36.9; O2SAT 100
[2019-11-04 10:25] LABS: Bedside Glucose 123 mg/dL (70-110)
== END 2019-11-04 09:25 ==
LOC: EN 07:09 → AC 07:09
PROVIDERS: Referring Provider Surgery; Visit Provider Surgery
PROC: 0DJ08ZZ Inspection of Upper Intestinal Tract, Via Natural or Artificial Opening Endoscopic (ICD-10-PCS; CPT 43235; principal; 2019-11-04 08:25)
DX: R13.10 Dysphagia, unspecified (principal); D69.6 Thrombocytopenia, unspecified; J44.9 Chronic obstructive pulmonary disease, unspecified; I10 Essential (primary) hypertension; E78.5 Hyperlipidemia, unspecified; E11.9 Type 2 diabetes mellitus without complications; I25.10 Atherosclerotic heart disease of native coronary artery without angina pectoris; Z87.891 Personal history of nicotine dependence; Z95.1 Presence of aortocoronary bypass graft; I71.4 Abdominal aortic aneurysm, without rupture; Z79.51 Long term (current) use of inhaled steroids; Z82.49 Family history of ischemic heart disease and other diseases of the circulatory system; Z88.0 Allergy status to penicillin; Z79.4 Long term (current) use of insulin
CPT/HCPCS: 43246; 82962; J7120; J2405

== ENCOUNTER 2019-11-04 22:03 | Inpatient (IN) | payer OTHER, MEDICARE, SELFPAY ==
[2019-11-04 12:14] VITALS: BMI 19.3
[2019-11-04 22:09] VITALS: BP 107/76; PULSE 131; PULSE 133; RESP 17; RESP 21; TEMP 38.4; BMI 20.4
[2019-11-04 22:15] VITALS: BP 107/76; PULSE 132; RESP 23; TEMP 38.4; O2SAT 95
--- NOTE | 2019-11-04 22:26 | EKG12_ITS ---
Test Reason : ABD PAIN Blood Pressure : / mmHG Vent. Rate : 128 BPM Atrial Rate : 128 BPM P-R Int : 134 ms QRS Dur : 100 ms QT Int : 328 ms P-R-T Axes : 085 -06 106 degrees QTc Int : 478 ms Sinus tachycardia Left ventricular hypertrophy with repolarization abnormality Nonspecific ST abnormality Abnormal ECG Confirmed by NATALIE BORREGO, CARMEN ([id number]), brands editor OTILIA LOPEZ ([id number]) on 11/07/2019 2:28:15 PM Referred By: ANSHUL Confirmed By:CARMEN ESTRADA MD
--- NOTE | 2019-11-04 22:27 | CT_ITS ---
STUDY: CT ABDOMEN AND PELVIS WITHOUT CONTRAST REASON FOR EXAM: Male, 69 years old. ABDOMINAL PAIN AND FEVER,PT HAD PEG TUBE PLACEMENT TODAY -- HX:AAA,DIABETES,CAD,COPD,HLD,HTN,IN WITH STENTS,RENAL ARTERY ANEURYSM WITH SURGERY RADIATION DOSAGE (If Supplied By Facility): CTDIvol = ( 6.32 ) mGy, DLP = ( 341.20 ) mGycm TECHNIQUE: Transaxial images were obtained from the dome of the diaphragm to the symphysis pubis without oral contrast, and without intravenous contrast. Sagittal and coronal images were reconstructed. Individualized dose optimization techniques were used for this CT. COMPARISON: CT of abdomen and pelvis dated October 25, 2019 FINDINGS: Previously seen moderate bilateral pleural effusions are decreased in volume with a tiny amount seen on the right and a small amount remaining on the left. Significant cystic emphysematous changes reidentified. Both lungs are chronically hyperinflated. Aneurysmal dilatation of the proximal abdominal aorta at 4.34 cm unchanged. Bilateral iliac artery vascular stent is reidentified. Mild diffuse mesenteric edema and tiny scattered amounts of abdominal and pelvic ascites reidentified. No focal fluid collection is seen. No free air. Mildly enlarged liver which is otherwise unremarkable. Unremarkable gallbladder. Unremarkable pancreas and spleen. Unremarkable adrenal glands. Small cysts and perinephric stranding of both kidneys reidentified. No suspicious features. No hydronephrosis or radiopaque stones. Torturous distal abdominal aortic aneurysm of 5.70 cm reidentified. A new left mid abdominal PEG tube is present in the proximal one third aspect of the stomach. A small amount of extraluminal air and tiny amounts of fluid are present in the left anterior intra-abdominal region directly adjacent to the portion of the stomach containing the PEG tube most likely related to recent placement procedure. Test injection of the PEG tube with contrast can be performed to evaluate for possible extraluminal leakage. Normal small intestine. Normal colon. The appendix is visualized and appears normal. Normal inferior vena cava. Normal retroperitoneum. Normal urinary bladder. Normal abdominal wall. There are diffuse degenerative changes of the visualized lumbar spine. CT/Abdomen/Pelvis without Cont IMPRESSION: 1. A new left mid abdominal PEG tube is present in the proximal one third aspect of the stomach. 2. A small amount of extraluminal air and tiny amounts of fluid are present in the left anterior intra-abdominal region directly adjacent to the portion of the stomach containing the PEG tube most likely related to recent placement procedure. 3. Test injection of the PEG tube with contrast in consultation with the service that placed the feeding tube can be performed to evaluate for possible extraluminal leakage. 4. Previously seen moderate bilateral pleural effusions are decreased in volume with a tiny amount seen on the right and a small amount remaining on the left. Electronically Signed: Ricky Das MD at 23:54 EDT , Service support ,
--- NOTE | 2019-11-04 22:30 | ED.DCSUM_ITS ---
- ER Visit Summary Date of Service: 11/04/19 Chief Complaint: Abdominal pain, fever History of Present Illness: The patient is a 69 M who has abdominal pain and fever. Patient is currently in the TCU after a prolonged stay for pneumonia. While in the hospital last week he had a CAT scan of his abdomen and pelvis which showed a small amount of free air. This was treated conservatively by surgery. Today he had a PEG tube placement by Dr. Willson. There were no postoperative issues. Tonight he was screaming out in pain and holding his abdomen as if he was in pain. He had a temperature of 100.8 ?F up in the TCU. He is currently receiving TPN through a right arm PICC line. The patient does not give any history due to his history of encephalopathy. He responds to his name only. Physical Examination: Vital signs are reviewed. Temperature is 101.1 ?F. Heart rate 133. 95% on room air. HEENT exam shows moist mucous membranes. His pupils are equal. His neck is supple. Heart is tachycardic and regular rhythm without murmurs. Lungs have diminished sounds bilaterally. Abdomen is soft with diffuse tenderness. The PEG site is without bleeding or drainage. Back is nontender. Extremities have no edema. He does have old abrasions to the right knee which do not show any erythema. Skin shows a pressure sore on the right heel which is covered. There is no signs of infection or drainage from this area. His PICC site is unremarkable as well. The patient is alert and oriented to self only which appears to be his baseline since his stay in the TCU. He has diffuse overall weakness. There are no other neurologic deficits. Test Results: EKG was sinus tachycardia with nonspecific changes. White blood cell count 7.4. Hemoglobin is 11.6. Creatinine normal. Total bilirubin is 2.3, alkaline phosphatase 150, ALT 66, AST 57. Urinalysis negative for infection. Lactate 2.1, troponin 0 0.085. Chest x-ray shows chronic changes with no new pneumonia. CAT scan of the abdomen and pelvis reveals a new PEG tube with postoperative changes. He does have bilateral pleural effusions. Emergency Department Course and Treatment: Patient symmetry came down with rectal Tylenol. I am unclear as to the source of this patient's infection. It could be the PICC line in the right upper arm. However, the skin appears normal. At this point I will cover him with broad-spectrum antibiotics includi ng vancomycin and cefepime. I discussed with hospitalist for admission. Treatment Plan: [] Disposition: Admit Impression: Severe sepsis, unknown source Recent PEG tube placement This note was generated with [employer] dictation software. It may contain incorrect words, spelling, and punctuation that were not noted in review of the chart prior to signing ED Disposition - Plan for ED Patient: Referrals: GERSON LORENZANA [Other]
[2019-11-04 22:31] VITALS: BP 112/79; PULSE 127; RESP 22; O2SAT 97
[2019-11-04] MEDS: Acetaminophen 650 MG Suppository RECTAL (22:33)
[2019-11-04] MEDS: 0.9% Normal Saline 1,000 ML 999 ML IV (22:33)
[2019-11-04 22:53] LABS: Bacteria 0 SEEN /hpf (None Seen); Mucous, Urine 0 SEEN /hpf (<or=2+); Squamous Epithelial Cells - UA 0 SEEN /hpf (0-5)
[2019-11-04 22:57] LABS: Color, Urine Yellow (Yellow); Glucose, Dipstick Normal (Normal); Ketone-Dipstick Negative (Negative); Leukocyte Esterase-Dipstick 25 /ul (Negative); Nitrite-Dipstick Negative (Negative); Occult Blood-Urine 10 /ul (Negative); Protein-Dipstick 15 mg/dl (Negative); Specific Gravity, Urine 1.015 (1.002-1.030); Urine Clarity Clear (Clear); Urine Urobilinogen 4 mg/dl (Normal)
--- NOTE | 2019-11-04 23:00 | RAD_ITS ---
STUDY: X-RAY CHEST REASON FOR EXAM: Male, 69 years old. PT ARRIVES FROM TCU AFTER [EGTUBE PLACEMENT TODAY,PT IS YELLING OUT IN PAIN AND GRABBING HIS ABDOMEN. HX OF AAA TECHNIQUE: Single AP portable view of the chest. COMPARISON: November 03, 2019 FINDINGS: Reidentification of moderate irregular consolidation or fibrosis of the right upper lobe. Additional fibrotic changes of both lungs reidentified. No new area of consolidation is seen. Chronic cystic emphysematous changes and hyperinflation. Normal heart size. Aortic arch vascular stent reidentified. The remaining structures are stable. Numerous left upper abdominal surgical clips reidentified. RAD/Chest 1 View (Portable) IMPRESSION: 1. Chronic appearing scattered and consolidative fibrosis of both lungs, most prominent in the right upper lobe. 2. Cystic emphysematous changes Electronically Signed: Ricky Das MD at 23:33 EDT , Service support ,
[2019-11-04 23:04] LABS: Red Blood Cells-Urine 0-5 SEEN /hpf (0-5); Urine Bilirubin Dipstick 1 mg/dL (Negative); White Blood Cells 0-5 SEEN /hpf (0-5)
[2019-11-04 23:13] LABS: ALB/GLOB Ratio 0.5 RATIO (0.9-2.4); AST(SGOT) 57 U/L (15-37); Alanine Aminotransfer ALT/SGPT 66 U/L (16-61); Alkaline Phosphatase 150 U/L (45-117); Anion Gap 6 (5-15); BUN 22 mg/dL (7-18); BUN/Creat Ratio 37.4 RATIO (10-20); Calcium,Total 8.2 mg/dL (8.5-10.1); Chloride 103 mmol/L (98-107); Creatinine, Serum 0.59 mg/dL (0.70-1.30); EST Glomerular Filtration Rate 144 mL/min (>60); Est Glom Filt Rate - Afr Amer 175 mL/min (>60); Estimated Creatinine Clearance 63.63 ml/min; Glucose 128 mg/dL (74-106); Potassium 4.2 mmol/L (3.5-5.1); Sodium Level 136 mmol/L (136-145)
[2019-11-04 23:15] LABS: International Normalized Ratio 1.1; Partial Thromboplast Time 29.9 Seconds (24.1-36.2); Prothrombin Time (Protime)PT. 14.1 SECONDS (11.7-14.9)
[2019-11-04 23:16] LABS: Absolute Lymphocyte Count 0.26 X10^3/uL (0.83-4.51); Absolute Neutrophil Count 6.6 X10^3/uL (2.0-7.7); Basophil# 0.01 X10^3/uL; Basophil% 0.1 % (0-1); Eosinophils% 2.7 % (0-5); Hematocrit 34.8 % (40-54); Hemoglobin 11.6 g/dL (13.0-16.5); Lymphocyte # 0.26 X10^3/ul (4.0); Lymphocyte % 3.5 % (19-41); Mean Corp Hgb Conc 33.3 g/dL (32-36); Mean Corpuscular Hgb 31.8 pg (27.0-32.0); Mean Corpuscular Volume 95.3 fL (80-94); NRBC Flagged by Analyzer 0 % (0-5); Neutrophil # 6.63 X10^3/uL (2.7-7.7); Neutrophil % 89.3 % (47-70); POSITIVE COUNT YES; POSITIVE DIFFERENTIAL YES; POSITIVE MORPHOLOGY YES; Platelet Count 63 K/mm3 (150-450); RBC Distribution Width CV 13.8 % (11.6-14.6); RBC Distribution Width SD 46.8 fl (35.1-43.9); Red Blood Count 3.65 M/mm3 (4.6-6.2); White Blood Count 7.4 K/mm3 (4.4-11.0)
[2019-11-04 23:19] LABS: Differential Indicated SCAN CRITERIA MET; Lactic Acid 2.1 mmol/L (0.4-1.9)
[2019-11-04 23:33] VITALS: BP 117/80; PULSE 122; RESP 14; TEMP 37.4; O2SAT 97
[2019-11-04 23:43] LABS: Platelet Estimate MOD DEC (ADEQ)
[2019-11-05] VITALS (17 sets, daily range): BP systolic 95–113; BP diastolic 59–78; PULSE 115–128; RESP 18–23; TEMP 36.7–37.3; O2SAT 95–100; BMI 16.7; BMI 19.3
--- NOTE | 2019-11-05 00:18 | HP.PCM_ITS ---
Problem List (1) Severe sepsis Status: Acute (2) Debility Status: Chronic (3) Abdominal aortic aneurysm Status: Chronic (4) COPD (chronic obstructive pulmonary disease) Status: Chronic (5) PAOD (peripheral arterial occlusive disease) Status: Chronic (6) Diabetes mellitus Status: Chronic (7) Alcohol abuse Status: Chronic (8) Acne rosacea Status: Chronic (9) Cervical spinal stenosis Status: Chronic (10) Thrombocytopenia Status: Chronic (11) CAD (coronary artery disease) Status: Chronic Qualifiers: (12) PAD (peripheral artery disease) Status: Chronic (13) HTN (hypertension) Status: Chronic Qualifiers: (14) HLD (hyperlipidemia) Status: Chronic Qualifiers: (15) Diabetes mellitus, type II Status: Chronic Qualifiers: Diabetes mellitus intermission coordinator insulin use: without intermission coordinator use Diabetes mellitus complication status: with other specified complication Qualified Code(s): E11.69 - Type 2 diabetes mellitus with other specified complication (16) Heavy alcohol consumption Status: Chronic (17) Former tobacco use Status: Chronic History of Present Illness Date of Admission: 11/05/19 Chief Complaint: Abdominal pain The patient is a 69 year old M who was transferred from the transitional care unit of [facility] to the emergency department because of excruciating abdominal pain. Because abdominal pain reportedly patient was holding his abdomen and he was screaming. His temperature at the TCU was 100.8 Fahrenheit. At emergency department his T-max was 101.1 Fahrenheit on the same day of presentation patient had a PEG tube placed by Dr. Willson, General Surgery. At the emergency department patient was found to have tachycardia Of note patient was admitted at a hospital in 10/14/2019 where he was intubated and was at intensive care unit. During the course of that hospitalization patient developed encephalopathy and was discharge to the TCU. Past Medical History Past Medical History (Chronic Problems): Chronic Problems Debility (Chronic) Abdominal aortic aneurysm (Chronic) COPD (chronic obstructive pulmonary disease) (Chronic) PAOD (peripheral arterial occlusive disease) (Chronic) Diabetes mellitus (Chronic) Alcohol abuse (Chronic) Acne rosacea (Chronic) Cervical spinal stenosis (Chronic) Thrombocytopenia (Chronic) CAD (coronary artery disease) (Chronic) PAD (peripheral artery disease) (Chronic) HTN (hypertension) (Chronic) HLD (hyperlipidemia) (Chronic) Diabetes mellitus, type II (Chronic) Heavy alcohol consumption (Chronic) Former tobacco use (Chronic) Medical History: Medical History (Last Reviewed 11/05/19 @ 01:[address] 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 SOB (shortness of breath) R06.02 HTN (hypertension) I10 Allergies [place] Inhibitors Allergy (Verified 11/04/19 22:19) Unknown Penicillins Allergy (Verified 11/04/19 22:19) Unknown Home Medications: Ambulatory Orders Medication Instructions Recorded metoprolol tartrate 50 mg tablet 1.5 tab PO BID 30 Days #90 07/20/17 ranolazine 1,000 mg 1 tab PO DAILY 30 Days #60 07/20/17 tablet,extended release,12 hr Cholecalciferol (Vitamin D3) 2,000 unit PO DAILY 10/14/19 [Vitamin D3] Fexofenadine HCl 180 mg PO DAILY 10/14/19 Iron Carbonyl [Feosol] 45 mg PO DAILYCM 10/14/19 Rosuvastatin Calcium 5 mg PO DAILY 10/14/19 Acetaminophen [Tylenol Tablet] 650 mg PO Q6H PRN PRN tab 10/28/19 Albuterol Aerosols [Ventolin 2.5 mg INHALATION Q2H PRN PRN 10/28/19 Aerosols] vial.neb. Glucagon 1 mg IM .X1 PRN syringe 10/28/19 Guaifenesin [Robitussin] 10 ml PO Q4H PRN PRN udc 10/28/19 Insulin Lispro [Humalog KwikPen] See Protocol SUBCUT Q6 10/28/19 Ipratropium/Albuterol Sulfate 3 ml INHALATION Q4HWA.RT 10/28/19 [Duoneb] Labetalol [Trandate] 10 mg IV Q4H 10/28/19 Menthol/Lanolin/Calamine/Znox 1 applic TOPICAL BID 10/28/19 [Calmoseptine Ointment] Nitroglycerin (INPATIENT USE) 0.4 mg SUBLINGUAL Q5M PRN tab.subl 10/28/19 [Nitrostat] Senna/Docusate Sodium [Senokot-S] 2 tab PO BID PRN PRN tab 10/28/19 levoFLOXacin IV [Levaquin 750mg 750 mg IV Q24 10/28/19 IVPB] metroNIDAZOLE [Flagyl IVPB] 500 mg IV Q8 10/28/19 Surgical History: Surgical History (Last Reviewed 11/05/19 @ 01:[address] 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 Psychiatric History: Anxiety, Depression Smoking Status: Former smoker - *Family History Maternal History Items: Heart Disease, Hypertension Paternal History Items: Heart Disease, Hypertension Review of Systems Unable to obtain accurate/complete ROS d/t: Confusion. VTE Information - Inpt Only VTE Present on Admission: No VTE Mechan Device Prophylaxis: SCD's VTE Pharm Prophylaxis ordered?: No - Physical Exam Vitals/I&O's: Vital Signs Temp Pulse Resp BP Pulse Ox 99.1 F 121 H 19 H 105/78 98 11/05/19 00:00 11/05/19 00:00 11/05/19 00:00 11/05/19 00:00 11/05/19 00:00 Oxygen Flow Rate (L/min) 2 Oxygen Delivery Method Room Air Weight: 66.4 kg Body Mass Index (BMI) 20.4 Intake and Output for Last 24 Hours 11/03/19 11/04/19 11/05/19 23:59 23:59 23:59 Intake Total 1000 / 1000 Balance 1000 / 1000 General: Alert, Confused HEENT: Atraumatic, EOMI, Normocephalic Neck: Supple, Trachea Midline Lungs: Clear to auscultation, Normal air movement Cardiovascular: Normal S1, Normal S2, No murmurs, Tachycardic Abdomen: Bowel Sounds Present, Soft, Tender Extremities: No edema, Capillary Refill Less than 3 Seconds Skin: No rashes, No breakdown Musculoskeletal: No Tenderness to Palpation of Joints or Extremities Neurological: Cranial nerves II-XII grossly intact Psych/Mental Status: Normal Affect, Appropriate Laboratory Results 11/04/19 22:15: WBC 7.4, RBC 3.65 L, Hgb 11.6 L, Hct 34.8 L, MCV 95.3 H, MCH 31.8, MCHC 33.3, RDW Std Deviation 46.8 H, RDW Coeff of [place] 13.8, Plt Count 63 L , MPV 13.0 H, Immature Gran % (Auto) 0.400, Neut % (Auto) 89.3 H, Lymph % (Auto) 3.5 L, [place] % (Auto) 4.0, Eos % (Auto) 2.7, Baso % (Auto) 0.1, Absolute Neuts (auto) 6.6, Absolute Lymphs (auto) 0.26 L, Nucleated RBC % 0, Differential Comment , Platelet Estimate MOD 11/04/19 22:15: PT 14.1, INR 1.1, APTT 29.9 11/04/19 22:15: Sodium 136, Potassium 4.2, Chloride 103, Carbon Dioxide 27.0, Anion Gap 6, BUN 22 H, Creatinine 0.59 L, Estim Creat Clear Calc 63.63, Est GFR (MDRD) Af Amer 175, Est GFR (MDRD) Non-Af 144, BUN/Creatinine Ratio 37.4 H, Glucose 128 H, Calcium 8.2 L, Total Bilirubin 2.30 H, AST 57 H, ALT 66 H, Alkaline Phosphatase 150 H, Troponin I 0.085 H, Total Protein 6.0 L, Albumin 2.0 L, Globulin 4.0, Albumin/Globulin Ratio 0.5 L 11/04/19 22:15: Lactic Acid 2.1 H* 11/04/19 22:35: Urine Color Yellow, Urine Clarity Clear, Urine pH 5.0, Ur Specific [place] 1.015, Urine Protein 15 H, Urine Glucose (UA) Normal, Urine Ketones Negative, Urine Occult Blood 10 H, Urine Nitrite Negative, Urine Bilirubin 1 H, Urine Urobilinogen 4 H, Ur Leukocyte Esterase 25 H, Urine RBC 0-5 SEEN, Urine WBC 0-5 SEEN, Ur Squamous Epith Cells 0 SEEN, Urine Bacteria 0 SEEN, Urine Mucus 0 SEEN Current Medications Cefepime HCl 2 gm/ Sodium (Chloride) 100 mls @ 200 mls/hr IV X1 ONE Stop: 11/05/19 00:35 Vancomycin HCl (Vancomycin) 1,000 mg in 200 mls @ 200 mls/hr IV X1 ONE Stop: 11/05/19 01:14 Assessment/Plan All Active Problems (Last Reviewed 11/05/19 @ 01:[address] Adriano Benton MD) Severe sepsis (Acute) The patient is a 69 year old M who was transferred from the transitional care unit of [facility] to the emergency department because of excruciating abdominal pain; fever; tachycardia and elevated lactic acid co nsistent with severe sepsis second to probable abdominal infection.. Severe sepsis Likely secondary to probable abdominal infection. Received vancomycin and cefepime at emergency department. We will continue patient on vancomycin and cefepime. In addition we will add Flagyl. Of note patient was recently Levaquin and Flagyl, having been discharged from the hospital on 10/28/2019 where he received discharge prescription for Levaquin and Flagyl. Gentle IV hydration. COVID test on October 14, 2019 was negative. Discussed with emergent department doctor to repeat a COVID-19 test. Abdomen and pelvis CT showed a PEG tube in place and most likely post operative changes. Radiologist recommended a possible test injection of the PEG tube with contrast in consultation with a service that place the feeding tube. Consider discussing with general surgery. Trend lactic acid. Follow blood culture. Tylenol by rectal route PRN. Dysphagia N.p.o. for now. Patient was on TPN at transitional care unit. Will consult nutrition service. Elevated troponin Trend. Thrombocytopenia Platelet on presentation was 63. Thrombocytopenia noted from 10/14/2019. Was seen by oncology on previous admission. Thrombocytopenia at that time was attributed to liver dysfunction and probable acute sepsis. Of note patient has a history of alcoholism. DVT prophylaxis SCD. Inpatient E&M: 12335 In Hosp L3
--- NOTE | 2019-11-05 00:36 | ED.RN ---
Report called to Elke from TCU with admission update.
[2019-11-05] MEDS: 0.9% Normal Saline 1,000 ML 75 ML IV ×2 (01:45→20:24)
[2019-11-05] MEDS: metroNIDAZOLE 500 MG/100 ML BAG 100 MG IV ×4 (01:45→23:05)
[2019-11-05] MEDS: 0.9% Saline Lock 10 ML Syringe IV ×2 (01:54→17:42)
[2019-11-05 02:51] LABS: Reflex Lactate? Y
[2019-11-05] MEDS: Vancomycin IV 1,000 MG/200 ML BAG 200 MG IV (03:13)
[2019-11-05 03:14] LABS: Absolute Lymphocyte Count 0.25 X10^3/uL (0.83-4.51); Basophil# 0.01 X10^3/uL; Basophil% 0.2 % (0-1); Eosinophil# 0.01 X10^3/uL; Eosinophils% 0.2 % (0-5); Hematocrit 37.6 % (40-54); Hemoglobin 12.1 g/dL (13.0-16.5); Lymphocyte # 0.25 X10^3/ul (4.0); Lymphocyte % 4.6 % (19-41); Mean Corp Hgb Conc 32.2 g/dL (32-36); Mean Corpuscular Hgb 32.1 pg (27.0-32.0); Mean Corpuscular Volume 99.7 fL (80-94); Mean Platelet Vol. 12.9 fl (6.2-12.0); Monocyte# 0.12 X10^3/uL; Monocyte% 2.2 % (0-10); NRBC Flagged by Analyzer 0 % (0-5); Neutrophil # 4.99 X10^3/uL (2.7-7.7); Neutrophil % 92.2 % (47-70); POSITIVE COUNT YES; POSITIVE DIFFERENTIAL YES; POSITIVE MORPHOLOGY YES; Platelet Count 62 K/mm3 (150-450); RBC Distribution Width CV 14.2 % (11.6-14.6); Red Blood Count 3.77 M/mm3 (4.6-6.2); White Blood Count 5.4 K/mm3 (4.4-11.0)
--- NOTE | 2019-11-05 03:26 | PCM.RX.CS ---
Consult Pharmacy has been consulted to manage selected antiobiotic: Vancomycin Type of Consult: New start Suspected Infection: Sepsis Prior Doses of Antibiotics Received/Current Regimen: Medications Vancomycin HCl 750 mg/ Sodium (Chloride) 265 mls @ 250 mls/hr IV Q12H L[place]LE Discontinued Medications Vancomycin HCl (Vancomycin) 1,000 mg in 200 mls @ 200 mls/hr IV X1 ONE Stop: 11/05/19 01:14 Last Admin: 11/05/19 03:13 Dose: 200 mls/hr Weight used for dosin.4 kg Estimated Creatinine Clearance: 64 Goal Trough: 15-20 mcg/mL Pharmacy Plan for Drug Dosing: Pharmacy Service will continue to monitor and adjust dosing as required. Follow-Up Labs: Trough Vancomycin Labs to be done on [date and time ordered]: 11/06/19 @9900
[2019-11-05 03:40] LABS: Anion Gap 10 (5-15); BUN 21 mg/dL (7-18); Calcium,Total 7.9 mg/dL (8.5-10.1); Chloride 105 mmol/L (98-107); Creatinine, Serum 0.52 mg/dL (0.70-1.30); EST Glomerular Filtration Rate 165 mL/min (>60); Est Glom Filt Rate - Afr Amer 199 mL/min (>60); Estimated Creatinine Clearance 51.94 ml/min; Glucose 102 mg/dL (74-106); Potassium 4.2 mmol/L (3.5-5.1); Sodium Level 134 mmol/L (136-145)
[2019-11-05 03:42] LABS: Lactic Acid 2.8 mmol/L (0.4-1.9)
[2019-11-05 03:59] LABS: Differential Indicated SCAN CRITERIA MET
[2019-11-05 05:23] LABS: Platelet Estimate MOD DEC (ADEQ)
[2019-11-05] MEDS: Cefepime HCl 2 GM in 0.9% NS 100 ML Minibag Q8 IV ×3 (05:45→22:23)
[2019-11-05 06:21] LABS: Bedside Glucose 88 mg/dL (70-110)
[2019-11-05] MEDS: Morphine 2 MG/ML Syringe 1 MG IV ×2 (07:11→22:33)
[2019-11-05 07:16] LABS: AST(SGOT) 60 U/L (15-37); Alanine Aminotransfer ALT/SGPT 61 U/L (16-61); Albumin, Serum 1.8 g/dL (3.2-5.0); Alkaline Phosphatase 148 U/L (45-117); Bilirubin, Direct 1.31 mg/dL (0.00-0.30); Globulin 3.7 g/dL (2.2-4.2); Protein, Total 5.5 g/dL (6.4-8.2)
--- NOTE | 2019-11-05 07:41 | PCM.CONS.GEN ---
Problem List (1) Dysphagia Status: Inactive Qualifiers: Dysphagia type: unspecified Reason for Consult Date of Consultation: 11/05/19 History of Present Illness: The patient is a 69 year old M who had PEG placed yesterday. After PEG placed and the patient became tachycardic and was sent to the emergency room. He currently is admitted. He is complaining of some abdominal pain. Past Medical History Past Medical History (Chronic Problems): Chronic Problems Debility (Chronic) Abdominal aortic aneurysm (Chronic) COPD (chronic obstructive pulmonary disease) (Chronic) PAOD (peripheral arterial occlusive disease) (Chronic) Diabetes mellitus (Chronic) Alcohol abuse (Chronic) Acne rosacea (Chronic) Cervical spinal stenosis (Chronic) Thrombocytopenia (Chronic) CAD (coronary artery disease) (Chronic) PAD (peripheral artery disease) (Chronic) HTN (hypertension) (Chronic) HLD (hyperlipidemia) (Chronic) Diabetes mellitus, type II (Chronic) Heavy alcohol consumption (Chronic) Former tobacco use (Chronic) Medical History: Medical History (Last Reviewed 11/05/19 @ 01:[address] 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 SOB (shortness of breath) R06.02 HTN (hypertension) I10 Allergies VALENTINA Inhibitors Allergy (Verified 11/04/19 22:19) Unknown Penicillins Allergy (Verified 11/04/19 22:19) Unknown Home Medications: Ambulatory Orders Medication Instructions Recorded metoprolol tartrate 50 mg tablet 1.5 tab PO BID 30 Days #90 07/20/17 ranolazine 1,000 mg 1 tab PO DAILY 30 Days #60 07/20/17 tablet,extended release,12 hr Cholecalciferol (Vitamin D3) 2,000 unit PO DAILY 10/14/19 [Vitamin D3] Fexofenadine HCl 180 mg PO DAILY 10/14/19 Iron Carbonyl [Feosol] 45 mg PO DAILYCM 10/14/19 Rosuvastatin Calcium 5 mg PO DAILY 10/14/19 Acetaminophen [Tylenol Tablet] 650 mg PO Q6H PRN PRN tab 10/28/19 Albuterol Aerosols [Ventolin 2.5 mg INHALATION Q2H PRN PRN 10/28/19 Aerosols] vial.neb. Glucagon 1 mg IM .X1 PRN syringe 10/28/19 Guaifenesin [Robitussin] 10 ml PO Q4H PRN PRN udc 10/28/19 Insulin Lispro [Humalog KwikPen] See Protocol SUBCUT Q6 10/28/19 Ipratropium/Albuterol Sulfate 3 ml INHALATION Q4HWA.RT 10/28/19 [Duoneb] Labetalol [Trandate] 10 mg IV Q4H 10/28/19 Menthol/Lanolin/Calamine/Znox 1 applic TOPICAL BID 10/28/19 [Calmoseptine Ointment] Nitroglycerin (INPATIENT USE) 0.4 mg SUBLINGUAL Q5M PRN tab.subl 10/28/19 [Nitrostat] Senna/Docusate Sodium [Senokot-S] 2 tab PO BID PRN PRN tab 10/28/19 levoFLOXacin IV [Levaquin 750mg 750 mg IV Q24 10/28/19 IVPB] metroNIDAZOLE [Flagyl IVPB] 500 mg IV Q8 10/28/19 Surgical History: Surgical History (Last Reviewed 11/05/19 @ 01:[address] 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 Psychiatric History: Anxiety, Depression Smoking Status: Former smoker - *Family History Maternal History Items: Heart Disease, Hypertension Paternal History Items: Heart Disease, Hypertension Review of Systems Unable to obtain accurate/complete ROS d/t: Patient confusion - Physical Exam Vitals/I&O's: Vital Signs Temp Pulse Resp BP Pulse Ox 98.3 F 119 H 18 108/62 99 11/05/19 05:50 11/05/19 05:50 11/05/19 05:50 11/05/19 05:50 11/05/19 05:50 Oxygen Flow Rate (L/min) 2 Oxygen Delivery Method Room Air Weight: 119 lb 7.849 oz Body Mass Index (BMI) 16.7 Intake and Output for Last 24 Hours 11/03/19 11/04/19 11/05/19 23:59 23:59 23:59 Intake Total 999 750 / 750 Balance 999 750 / 750 General: Alert, No apparent distress Abdomen: Soft, Tender Laboratory Results 11/04/19 22:15: WBC 7.4, RBC 3.65 L, Hgb 11.6 L, Hct 34.8 L, MCV 95.3 H, MCH 31.8, MCHC 33.3, RDW Std Deviation 46.8 H, RDW Coeff of Xenia 13.8, Plt Count 63 L, MPV 13.0 H, Immature Gran % (Auto) 0.400, Neut % (Auto) 89.3 H, Lymph % (Auto) 3.5 L, [place] % (Auto) 4.0, Eos % (Auto) 2.7, Baso % (Auto) 0.1, Absolute Neuts (auto) 6.6, Absolute Lymphs (auto) 0.26 L, Nucleated RBC % 0, Differential Comment , Platelet Estimate MOD 11/04/19 22:15: PT 14.1, INR 1.1, APTT 29.9 11/04/19 22:15: Sodium 136, Potassium 4.2, Chloride 103, Carbon Dioxide 27.0, Anion Gap 6, BUN 22 H, Creatinine 0.59 L, Estim Creat Clear Calc 63.63, Est GFR (MDRD) Af Amer 175, Est GFR (MDRD) Non-Af 144, BUN/Creatinine Ratio 37.4 H, Glucose 128 H, Calcium 8.2 L, Total Bilirubin 2.30 H, AST 57 H, ALT 66 H, Alkaline Phosphatase 150 H, Troponin I 0.085 H, Total Protein 6.0 L, Albumin 2.0 L, Globulin 4.0, Albumin/Globulin Ratio 0.5 L 11/04/19 22:15: Lactic Acid 2.1 H* 11/04/19 22:35: Urine Color Yellow, Urine Clarity Clear, Urine pH 5.0, Ur Specific [place] 1.015, Urine Protein 15 H, Urine Glucose (UA) Normal, Urine Ketones Negative, Urine Occult Blood 10 H, Urine Nitrite Negative, Urine Bilirubin 1 H, Urine Urobilinogen 4 H, Ur Leukocyte Esterase 25 H, Urine RBC 0-5 SEEN, Urine WBC 0-5 SEEN, Ur Squamous Epith Cells 0 SEEN, Urine Bacteria 0 SEEN, Urine Mucus 0 SEEN 11/05/19 00:25: COVID-19 (GINA) Pending 11/05/19 03:00: WBC 5.4, RBC 3.77 L, Hgb 12.1 L, Hct 37.6 L, MCV 99.7 H, MCH 32.1 H, MCHC 32.2, RDW Std Deviation 50.0 H, RDW Coeff of Xenia 14.2, Plt Count 62 L, MPV 12.9 H, Immature Gran % (Auto) 0.600, Neut % (Auto) 92.2 H, Lymph % (Auto) 4.6 L, [place] % (Auto) 2.2, Eos % (Auto) 0.2, Baso % (Auto) 0.2, Absolute Neuts (auto) 5.0, Absolute Lymphs (auto) 0.25 L, Nucleated RBC % 0, Differential Comment COMMENT, Platelet Estimate MOD 11/05/19 03:00: Sodium 134 L, Potassium 4.2, Chloride 105, Carbon Dioxide 19.0 L, Anion Gap 10, BUN 21 H, Creatinine 0.52 L, Estim Creat Clear Calc 51.94, Est GFR (MDRD) Af Amer 199, Est GFR (MDRD) Non-Af 165, BUN/Creatinine Ratio 40.0 H, Glucose 102, Calcium 7.9 L, Troponin I 0.058 H 11/05/19 03:00: Lactic Acid 2.8 H* 11/05/19 05:48: POC Glucose 88 11/05/19 05:58: Total Bilirubin 2.20 H, Direct Bilirubin 1.31 H, AST 60 H, ALT 61, Alkaline Phosphatase 148 H, Troponin I 0.095 H, Total Protein 5.5 L, Albumin 1.8 L, Globulin 3.7 11/05/19 07:00: Lactic Acid Pending Current Medications Acetaminophen (Tylenol) 650 mg RECTAL Q4H PRN PRN PRN Reason: Pain Score 1-10/Temp > 100.7 F Calamine/Phenol (Calmoseptine Ointment) 1 applic TOPICAL BID [facility]; Protocol Dextrose (D50w Syringe) 0 gm IV X1 PRN; Protocol PRN Reason: Hypoglycemia Glucagon () 1 mg IM .X1 PRN PRN Reason: Hypoglycemia Sodium Chloride () 1,000 mls @ 75 mls/hr IV .[id number] [facility] Last Infusion: 11/05/19 07:30 Dose: 75 mls/hr Documented by: Metronidazole (Flagyl) 500 mg in 100 mls @ 100 mls/hr IV Q8 [facility] Last Infusion: 11/05/19 07:30 Dose: Infused Documented by: Vancomycin IV Pharmacy to Dose (1 ea/ Sodium Chloride) 500 mls @ 250 mls/hr IV PRN PRN; Protocol PRN Reason: Rx to Dose Cefepime HCl 2 gm/ Sodium (Chloride) 100 mls @ 200 mls/hr IV Q8 [facility] Last Infusion: 11/05/19 06:15 Dose: Infused Documented by: Sodium Chloride () 250 mls @ 15 mls/hr IV .[id number] PRN PRN Reason: Saline Flush Sodium Chloride () 250 mls @ 15 mls/hr IV .[id number] PRN PRN Reason: Additional IVPB Infusion Multivitamins 10 ml/ Chromium/Copper/Manganese/Seleni/Zn 1 ml/ Folic Acid 1 mg/ Amino Acids/Electrolytes/Dextrose 2,011 mls @ 42 mls/hr IV .Q24H [facility] Stop: 11/05/19 15:48 Last Admin: 11/05/19 03:21 Dose: Not Given Documented by: Vancomycin HCl 750 mg/ Sodium (Chloride) 265 mls @ 250 mls/hr IV Q12H [facility] Insulin Human Lispro (Humalog Kwikpen (Bkc)) 0 unit SC Q6 [facility]; Protocol Last Admin: 11/05/19 06:01 Dose: Not Given Documented by: Morphine Sulfate () 1 mg IV Q3H PRN PRN PRN Reason: Abdominal pain 6-04/14 Last Admin: 11/05/19 07:11 Dose: 1 mg Documented by: Ondansetron HCl (Zofran) 4 mg IV Q8H PRN PRN PRN Reason: NAUSEA/VOMITING Sodium Chloride () 10 - 40 ml IV UD PRN PRN Reason: SALINE FLUSH Last Admin: 11/05/19 01:54 Dose: 10 ml Documented by: Assessment/Plan All Active Problems (Last Reviewed 11/05/19 @ 01:[address] Adriano Benton MD) Severe sepsis (Acute) 69-year-old male status post PEG placement 1. The patient has having some abdominal pain today. He is also having tachycardia but he is not having any hypotension anymore. He reports that he is having abdominal pain but only at the site of the PEG tube which is to be expected. He had a CT scan which did show some bubbles and fluid around the PEG tube. Patient's white count is normal. 2. The patient may have had some leakage from the PEG site. I tightened the bumper in place the PEG tube to [place] bag gravity drainage. Please do not use the PEG tube today for feeds. Continue antibiotics in case there was any leakage from the stomach. Dylon Willson MD Pager: [facility] [address] [place] [address], [address] [place] [phone] Office:
[2019-11-05 07:55] LABS: Lactic Acid 2.1 mmol/L (0.4-1.9)
--- NOTE | 2019-11-05 08:09 | NURSING ---
lab called with lactic acid result of 2.1, primary RN Mando and notified
[2019-11-05 08:36] LABS: Magnesium 1.8 mg/dL (1.6-2.6); Phosphorus 3.1 mg/dL (2.5-4.9); Triglycerides 83 mg/dL
[2019-11-05] MEDS: Menthol/Lanolin/Calamine/Znox 113 GM Tube 1 APPLIC TOPICAL ×2 (09:59→20:25)
[2019-11-05 11:24] LABS: Reflex Lactate? Y
--- NOTE | 2019-11-05 11:32 | PN_ITS ---
Reason for Visit: severe sepsis Subjective: denies any current abdominal pain. Vitals/I&O's: Vital Signs Temp Pulse Resp BP Pulse Ox 37.2 C 123 H 18 103/59 L 100 11/05/19 10:25 11/05/19 10:25 11/05/19 10:25 11/05/19 10:25 11/05/19 10:25 Oxygen Flow Rate (L/min) 2 Oxygen Delivery Method Room Air Weight: 54.2 kg Body Mass Index (BMI) 16.7 Intake and Output for Last 24 Hours 11/03/19 11/04/19 11/05/19 23:59 23:59 23:59 Intake Total 1000 / 1000 750 / 750 Balance 1000 / 1000 750 / 750 General: Alert, No apparent distress, - - start moaning on separate occassions, but does not appear in any distress. When I addressed this to him, he said he was unaware he was doing this each time. HEENT: Atraumatic, Normocephalic Oral: Moist Mucosa, No Gingival or Mucosal Lesions/ Ulcerations Neck: No Nodes, Trachea Midline Lungs: Clear to auscultation, Normal air movement, No rhonchi, No wheeze, No rales Cardiovascular: Regular rate, Regular Rhythm, Normal S1, Normal S2, No murmurs Abdomen: - - abdominal binder in place, did not remove. Extremities: No edema, No Calf Tenderness Musculoskeletal: Cachexia, Muscle Wasting Laboratory Results 11/04/19 22:15: WBC 7.4, RBC 3.65 L, Hgb 11.6 L, Hct 34.8 L, MCV 95.3 H, MCH 31.8, MCHC 33.3, RDW Std Deviation 46.8 H, RDW Coeff of Xenia 13.8, Plt Count 63 L , MPV 13.0 H, Immature Gran % (Auto) 0.400, Neut % (Auto) 89.3 H, Lymph % (Auto) 3.5 L, [place] % (Auto) 4.0, Eos % (Auto) 2.7, Baso % (Auto) 0.1, Absolute Neuts (auto) 6.6, Absolute Lymphs (auto) 0.26 L, Nucleated RBC % 0, Differential Comment , Platelet Estimate MOD 11/04/19 22:15: PT 14.1, INR 1.1, APTT 29.9 11/04/19 22:15: Sodium 136, Potassium 4.2, Chloride 103, Carbon Dioxide 27.0, Anion Gap 6, BUN 22 H, Creatinine 0.59 L, Estim Creat Clear Calc 63.63, Est GFR (MDRD) Af Amer 175, Est GFR (MDRD) Non-Af 144, BUN/Creatinine Ratio 37.4 H, Glucose 128 H, Calcium 8.2 L, Total Bilirubin 2.30 H, AST 57 H, ALT 66 H, Alkaline Phosphatase 150 H, Troponin I 0.085 H, Total Protein 6.0 L, Albumin 2.0 L, Globulin 4.0, Albumin/Globulin Ratio 0.5 L 11/04/19 22:15: Lactic Acid 2.1 H* 11/04/19 22:35: Urine Color Yellow, Urine Clarity Clear, Urine pH 5.0, Ur Specific [place] 1.015, Urine Protein 15 H, Urine Glucose (UA) Normal, Urine Ketones Negative, Urine Occult Blood 10 H, Urine Nitrite Negative, Urine Bilirubin 1 H, Urine Urobilinogen 4 H, Ur Leukocyte Esterase 25 H, Urine RBC 0-5 SEEN, Urine WBC 0-5 SEEN, Ur Squamous Epith Cells 0 SEEN, Urine Bacteria 0 SEEN, Urine Mucus 0 SEEN 11/05/19 00:25: COVID-19 ([facility]) Pending 11/05/19 03:00: WBC 5.4, RBC 3.77 L, Hgb 12.1 L, Hct 37.6 L, MCV 99.7 H, MCH 32.1 H, MCHC 32.2, RDW Std Deviation 50.0 H, RDW Coeff of Xenia 14.2, Plt Count 62 L, MPV 12.9 H, Immature Gran % (Auto) 0.600, Neut % (Auto) 92.2 H, Lymph % (Auto) 4.6 L, [place] % (Auto) 2.2, Eos % (Auto) 0.2, Baso % (Auto) 0.2, Absolute Neuts (auto) 5.0, Absolute Lymphs (auto) 0.25 L, Nucleated RBC % 0, Differential Comment COMMENT, Platelet Estimate MOD 11/05/19 03:00: Sodium 134 L, Potassium 4.2, Chloride 105, Carbon Dioxide 19.0 L , Anion Gap 10, BUN 21 H, Creatinine 0.52 L, Estim Creat Clear Calc 51.94, Est GFR (MDRD) Af Amer 199, Est GFR (MDRD) Non-Af 165, BUN/Creatinine Ratio 40.0 H, Glucose 102, Calcium 7.9 L, Troponin I 0.058 H 11/05/19 03:00: Lactic Acid 2.8 H* 11/05/19 05:48: POC Glucose 88 11/05/19 05:58: Total Bilirubin 2.20 H, Direct Bilirubin 1.31 H, AST 60 H, ALT 61, Alkaline Phosphatase 148 H, Troponin I 0.095 H, Total Protein 5.5 L, Albumin 1.8 L, Globulin 3.7 11/05/19 05:58: Phosphorus 3.1, Magnesium 1.8, Triglycerides 83 11/05/19 07:00: Lactic Acid 2.1 H* 11/05/19 08:48: Troponin I 0.144 H Current Medications Acetaminophen (Tylenol) 650 mg RECTAL Q4H PRN PRN PRN Reason: Pain Score 1-10/Temp > 100.7 F Calamine/Phenol (Calmoseptine Ointment) 1 applic TOPICAL BID [facility]; Protocol Last Admin: 11/05/19 09:59 Dose: 1 applicatio Documented by: Dextrose (D50w Syringe) 0 gm IV X1 PRN; Protocol PRN Reason: Hypoglycemia Glucagon () 1 mg IM .X1 PRN PRN Reason: Hypoglycemia Sodium Chloride () 1,000 mls @ 75 mls/hr IV .[id number] [facility] Last Infusion: 11/05/19 07:30 Dose: 75 mls/hr Documented by: Metronidazole (Flagyl) 500 mg in 100 mls @ 100 mls/hr IV Q8 [facility] Last Infusion: 11/05/19 07:30 Dose: Infused Documented by: Vancomycin IV Pharmacy to Dose (1 ea/ Sodium Chloride) 500 mls @ 250 mls/hr IV PRN PRN; Protocol PRN Reason: Rx to Dose Cefepime HCl 2 gm/ Sodium (Chloride) 100 mls @ 200 mls/hr IV Q8 [facility] Last Infusion: 11/05/19 06:15 Dose: Infused Documented by: Sodium Chloride () 250 mls @ 15 mls/hr IV .[id number] PRN PRN Reason: Saline Flush Sodium Chloride () 250 mls @ 15 mls/hr IV .[id number] PRN PRN Reason: Additional IVPB Infusion Multivitamins 10 ml/ Chromium/Copper/Manganese/Seleni/Zn 1 ml/ Folic Acid 1 mg/ Amino Acids/Electrolytes/Dextrose 2,011 mls @ 42 mls/hr IV .Q24H [facility] Stop: 11/05/19 15:48 Last Admin: 11/05/19 03:21 Dose: Not Given Documented by: Vancomycin HCl 750 mg/ Sodium (Chloride) 265 mls @ 250 mls/hr IV Q12H [facility] Insulin Human Lispro (Humalog Kwikpen (Bkc)) 0 unit SC Q6 [facility]; Protocol Last Admin: 11/05/19 11:29 Dose: Not Given Documented by: Morphine Sulfate () 1 mg IV Q3H PRN PRN PRN Reason: Abdominal pain 6-04/14 Last Admin: 11/05/19 07:11 Dose: 1 mg Documented by: Ondansetron HCl (Zofran) 4 mg IV Q8H PRN PRN PRN Reason: NAUSEA/VOMITING Sodium Chloride () 10 - 40 ml IV UD PRN PRN Reason: SALINE FLUSH Last Admin: 11/05/19 01:54 Dose: 10 ml Documented by: STROKE Vital Signs/Narrative: Vital Signs Temp Pulse Resp BP Pulse Ox 11/05/19 10:25 37.2 C 123 H 18 103/59 L 100 Medical Necessity - Tobacco Use Smoking Status: Former smoker Assessment/Plan All Active Problems (Last Reviewed 11/05/19 @ 01:[address] Adriano Benton MD) Severe sepsis (Acute) 1. severe sepsis * present arrival * source not yet identified, and unclear if an actual infection at this time. * blood and urine cultures pending * on cefepime, metronidazole, and vanc * COVID-19 pending, but highly unlikely 2. s/p PEG * placed on 11/03 * DW Dr. Willson, expected post procedure findings on CT. Await another 1-2 days before it can be used * currently, connected to a steele for drainage 3. Dysphagia * NPO * TPN until PEG can be used. 4. thrombocytopenia: chronic. stable. 5. VTE prophylaxis: SCDs. Avoid chemical proph given thrombocytopenia Procedures: Other Procedure - See Report - non-billable rounding. pt seen after midnight.
--- NOTE | 2019-11-05 12:32 | PCM.NTREPORT ---
Nutrition Therapy Report - History Nutrition Services has been consulted to:: Manage parenteral nutrition Current diet / nutrition support order:: NPO; 1L 4.25%AA/10% dextrose solution w/ electrolytes. 250 ml 20% lipid solution - Anthropometric Measurements Height:: 5 ft 6 in Weight:: 54.2 kg Body Mass Index (BMI):: 19.3 - Relevant Labs Relevant Labs:: RBC 3.77 M/mm3 (4.6-6.2) L 11/05/19 03:00 Hgb 12.1 g/dL (13.0-16.5) L 11/05/19 03:00 Hct 37.6 % (40-54) L 11/05/19 03:00 MCV 99.7 fL (80-94) H 11/05/19 03:00 MCH 32.1 pg (27.0-32.0) H 11/05/19 03:00 RDW Std Deviation 50.0 fl (35.1-43.9) H 11/05/19 03:00 Plt Count 62 K/mm3 (150-450) L 11/05/19 03:00 MPV 12.9 fl (6.2-12.0) H 11/05/19 03:00 Neut % (Auto) 92.2 % (47-70) H 11/05/19 03:00 Lymph % (Auto) 4.6 % (19-41) L 11/05/19 03:00 Absolute Lymphs (auto) 0.25 X10^3/uL (0.83-4.51) L 11/05/19 03:00 Sodium 134 mmol/L (136-145) L 11/05/19 03:00 Carbon Dioxide 19.0 mmol/L (21.0-32.0) L 11/05/19 03:00 BUN 21 mg/dL (7-18) H 11/05/19 03:00 Creatinine 0.52 mg/dL (0.70-1.30) L 11/05/19 03:00 BUN/Creatinine Ratio 40.0 RATIO (10-20) H 11/05/19 03:00 Glucose 128 mg/dL (74-106) H 11/04/19 22:15 Lactic Acid 2.1 mmol/L (0.4-1.9) H* 11/05/19 07:00 Calcium 7.9 mg/dL (8.5-10.1) L 11/05/19 03:00 Total Bilirubin 2.20 mg/dL (0.20-1.00) H 11/05/19 05:58 Direct Bilirubin 1.31 mg/dL (0.00-0.30) H 11/05/19 05:58 AST 60 U/L (15-37) H 11/05/19 05:58 ALT 66 U/L (16-61) H 11/04/19 22:15 Alkaline Phosphatase 148 U/L (45-117) H 11/05/19 05:58 Troponin I 0.144 ng/mL (<0.045) H 11/05/19 08:48 Total Protein 5.5 g/dL (6.4-8.2) L 11/05/19 05:58 Albumin 1.8 g/dL (3.2-5.0) L 11/05/19 05:58 Albumin/Globulin Ratio 0.5 RATIO (0.9-2.4) L 11/04/19 22:15 - Assessment Food / Nutrition-Related History:: Pt under COVID isolation precautions- RDN unable to speak w/ pt at this time. Pt familiar to this RDN from previous PCU and TCU admissions. During acute hospitalization 10/13 pt was mostly NPO d/t mental status, dysphagia, and concerns for ?septic abdomen?. Pt was not surgery candidate at that time. Nutrition support initiated on 10/23/19 via TPN. Lipids provided 3x/week. 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 11/03 pt underwent PEG placement. 11/04 pt admin to MS2 d/t extreme abdominal pain, severe sepsis. RDN received consult for TPN and ordered not to use GT. RDN spoke w/ GABINO Gilmore who reports TPN running at this time. TPN 11/03: 1L 4.25%AA/10% dextrose solution w/ electrolytes. 250 ml 20% lipid solution. (providing 1010 calories, 42 g protein). No Insulin or famotidine added. Labs in Normal Range: Potassium (4.2), Phosphorous (3.1), Magnesium (1.8), and Triglyceride (83), Glucose (102). Pt wt has fluctuated from 54-63.8 kg during previous admins; wt maintaining at ~54kg, CBW 54.2kg. Question pt height accuracy as previous PCU and TCU admissions pt 5'6, currently 5'11- RDN notified RN GABINO Luna to change pt height. Per RN note pt last BM today. RDN spoke w/ Dr Myers and Tanesha from pharmacy- no insulin or famotidine to be added to TPN. - Nutrition Diagnosis Problem / Etiology / Signs & Symptoms (PES):: Inadequate oral intake related to mental status, dysphagia as evidenced by <50% PO intake >5 days. Evidence of Malnutrition Exists:: No - Nutrition Intervention Nutrition Prescription:: [id number] calories, 60-70 g protein - Food / Nutrient Delivery Interventions Summary of nutrition intervention:: Limited history on pt PO intake/wt FRONT OFFICE SUPERVISOR is available. Suspected inadequate oral intake FRONT OFFICE SUPERVISOR w/ likely chronic malnutrition but unable to confirm at this time. TPN is not ideal for long-term nutrition support. As pt medically able rec slow initiation of PEG tube feedings and weaning of TPN. *Will require TPN renewal daily by physician; RDN will manage nutrient details of TPN and order TPN as indicated.* Nutrition support ordered as / adjusted to:: 2L 5%AA/20% dextrose solution w/ electrolytes Nutrition education provided?: No - MNT Monitoring Further MNT monitoring and evaluation required?: Yes - MNT Follow-up in:: 1-2 days - Please call RDN at [phone] as needed.
[2019-11-05 12:36] LABS: Lactic Acid 1.2 mmol/L (0.4-1.9)
[2019-11-05 14:21] LABS: Bedside Glucose 82 mg/dL (70-110)
--- NOTE | 2019-11-05 15:21 | CASEMGMT ---
Social Work Consult: Placement Informant: GABINO VILLA Patient is confused, unable to complete assessment with patient. Patient from the Transitional Care Unit. Telephone call to patient spouse, Janee. Voicemail left. Per chart review: Marital/Social History: . Spouse, Janee Living Situation: Lives with Janee in a 2 story home with a 1st floor set up and ramp to enter the home. DME: Straight Cane, Walker, Wheelchair, Rails/Grab bars, Oxygen. Patient wears O2 at night through [employer]. Prior level of functioning: Independent for personal care and mobility. Patient spouse did assist with linter tender. 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 Advanced Directives: Janee is patient health care power of estate attorney. Documents are not on file at this time. Social Work to continue to follow Hal ROBERT, DANIELE
--- NOTE | 2019-11-05 15:46 | CASEMGMT ---
Social Work Telephone call from patient spouse, Janee. Janee stating that discharge plan would be for patient to return to the TCU, if able to. Janee stating to have just spoken with nursing staff for a medical update and has no further questions at this time. Hal Latham MSW, DANIELE
[2019-11-05] MEDS: Metoprolol Tartrate 5 MG/5 ML Vial IV (17:42)
--- NOTE | 2019-11-05 21:00 | NURSING ---
Report called to Maddi Tejada RN who will be taking over care of this pt. at this time
[2019-11-06] VITALS (22 sets, daily range): BP systolic 63–132; BP diastolic 53–77; PULSE 100–138; RESP 16–23; TEMP 36.6–37.3; O2SAT 89–97; BMI 19.8
[2019-11-06 00:51] LABS: Bedside Glucose 122 mg/dL (70-110)
[2019-11-06] MEDS: Acetaminophen 650 MG Suppository RECTAL (01:28)
--- NOTE | 2019-11-06 01:34 | NURSING ---
prn tylenol rectal given for 99.4 oral temp and elevated hr.
[2019-11-06] MEDS: Cefepime HCl 2 GM in 0.9% NS 100 ML Minibag Q8 IV ×3 (05:14→21:47)
[2019-11-06] MEDS: metroNIDAZOLE 500 MG/100 ML BAG 100 MG IV ×3 (05:49→22:32)
[2019-11-06] MEDS: Metoprolol Tartrate 5 MG/5 ML Vial IV ×4 (05:54→22:24)
[2019-11-06 06:10] LABS: Bedside Glucose 130 mg/dL (70-110)
[2019-11-06 06:30] LABS: Bedside Glucose 97 mg/dL (70-110)
[2019-11-06 07:20] LABS: Absolute Lymphocyte Count 0.27 X10^3/uL (0.83-4.51); Absolute Neutrophil Count 3.6 X10^3/uL (2.0-7.7); Basophil# 0.01 X10^3/uL; Basophil% 0.2 % (0-1); Differential Indicated SCAN CRITERIA MET; Eosinophil# 0.34 X10^3/uL; Eosinophils% 7.5 % (0-5); Hematocrit 34.1 % (40-54); Lymphocyte # 0.27 X10^3/ul (4.0); Mean Corp Hgb Conc 32.3 g/dL (32-36); Mean Corpuscular Hgb 31.8 pg (27.0-32.0); Mean Corpuscular Volume 98.6 fL (80-94); Monocyte# 0.31 X10^3/uL; Monocyte% 6.8 % (0-10); NRBC Flagged by Analyzer 0 % (0-5); Neutrophil # 3.57 X10^3/uL (2.7-7.7); Neutrophil % 78.8 % (47-70); POSITIVE DIFFERENTIAL YES; POSITIVE MORPHOLOGY YES; Platelet Count 106 K/mm3 (150-450); RBC Distribution Width CV 14.2 % (11.6-14.6); RBC Distribution Width SD 50.1 fl (35.1-43.9); Red Blood Count 3.46 M/mm3 (4.6-6.2); White Blood Count 4.5 K/mm3 (4.4-11.0)
[2019-11-06 07:40] LABS: Differential Comment SCANNED
[2019-11-06 07:48] LABS: ALB/GLOB Ratio 0.4 RATIO (0.9-2.4); AST(SGOT) 30 U/L (15-37); Alanine Aminotransfer ALT/SGPT 46 U/L (16-61); Albumin, Serum 1.5 g/dL (3.2-5.0); Alkaline Phosphatase 108 U/L (45-117); Anion Gap 4 (5-15); BUN 24 mg/dL (7-18); BUN/Creat Ratio 56.1 RATIO (10-20); Calcium,Total 7.9 mg/dL (8.5-10.1); Chloride 105 mmol/L (98-107); Creatinine, Serum 0.43 mg/dL (0.70-1.30); EST Glomerular Filtration Rate 208 mL/min (>60); Est Glom Filt Rate - Afr Amer 252 mL/min (>60); Estimated Creatinine Clearance 53.38 ml/min; Globulin 3.8 g/dL (2.2-4.2); Glucose 125 mg/dL (74-106); Magnesium 2.1 mg/dL (1.6-2.6); Phosphorus 2.3 mg/dL (2.5-4.9); Potassium 3.1 mmol/L (3.5-5.1); Protein, Total 5.3 g/dL (6.4-8.2); Sodium Level 138 mmol/L (136-145)
--- NOTE | 2019-11-06 08:30 | PN_ITS ---
Reason for Visit: severe sepsis Subjective: Denies any abdominal pain. Vitals/I&O's: Vital Signs Temp Pulse Resp BP Pulse Ox 37.1 C 108 H 22 H 118/69 95 11/06/19 06:29 11/06/19 07:00 11/06/19 06:29 11/06/19 06:29 11/06/19 07:15 Oxygen Flow Rate (L/min) 2 Oxygen Delivery Method Room Air Weight: 55.7 kg Body Mass Index (BMI) 19.3 Intake and Output for Last 24 Hours 11/04/19 11/05/19 11/06/19 23:59 23:59 23:59 Intake Total 1000 / 1000 2622.70 / 2622.70 768.75 / 768.75 Output Total 390 / 640 250 / 250 Balance 1000 / 1000 2232.70 / 1982.70 518.75 / 518.75 General: Alert, No apparent distress HEENT: Atraumatic, Normocephalic Oral: Moist Mucosa, No Gingival or Mucosal Lesions/ Ulcerations Neck: No Nodes, Trachea Midline Lungs: Clear to auscultation, Normal air movement, No rhonchi, No wheeze, No rales Cardiovascular: Regular Rhythm, Tachycardic, - Abdomen: Bowel Sounds Present, - - abdominal binder in place--did not remove. Extremities: No edema, No Calf Tenderness Skin: No rashes, No breakdown Psych/Mental Status: Normal Affect, Appropriate Microbiology Past 72 Hours 11/04/19 22:35 Urine, Catheterized Urine Culture - Preliminary Culture exhibits no growth. Laboratory Results 11/05/19 00:25: COVID-19 (GINA) Not Detected 11/05/19 05:58: Phosphorus 3.1, Magnesium 1.8, Triglycerides 83 11/05/19 08:48: Troponin I 0.144 H 11/05/19 11:29: POC Glucose 82 11/05/19 11:54: Lactic Acid 1.2 11/05/19 17:30: POC Glucose 97 11/06/19 00:29: POC Glucose 122 H 11/06/19 06:05: POC Glucose 130 H 11/06/19 06:40: Sodium 138, Potassium 3.1 L, Chloride 105, Carbon Dioxide 29.0, Anion Gap 4 L, BUN 24 H, Creatinine 0.43 L, Estim Creat Clear Calc 53.38, Est GFR (MDRD) Af Amer 252, Est GFR (MDRD) Non-Af 208, BUN/Creatinine Ratio 56.1 H, Glucose 125 H, Calcium 7.9 L, Phosphorus 2.3 L, Magnesium 2.1, Total Bilirubin 1.30 H, AST 30, ALT 46, Alkaline Phosphatase 108, Total Protein 5.3 L, Albumin 1.5 L, Globulin 3.8, Albumin/Globulin Ratio 0.4 L 11/06/19 06:40: WBC 4.5, RBC 3.46 L, Hgb 11.0 L, Hct 34.1 L, MCV 98.6 H, MCH 31.8, MCHC 32.3, RDW Std Deviation 50.1 H, RDW Coeff of Xenia 14.2, Plt Count 106 L, MPV 13.0 H, Immature Gran % (Auto) 0.700, Neut % (Auto) 78.8 H, Lymph % (Auto) 6.0 L, Cook % (Auto) 6.8, Eos % (Auto) 7.5 H, Baso % (Auto) 0.2, Absolute Neuts (auto) 3.6, Absolute Lymphs (auto) 0.27 L, Nucleated RBC % 0, Differential Comment SCANNED Current Medications Acetaminophen (Tylenol) 650 mg RECTAL Q4H PRN PRN PRN Reason: Pain Score 1-10/Temp > 100.7 F Last Admin: 11/06/19 01:28 Dose: 650 mg Documented by: Aspirin (Aspirin) 300 mg RECTAL DAILY [facility] Calamine/Phenol (Calmoseptine Ointment) 1 applic TOPICAL BID [facility]; Protocol Last Admin: 11/05/19 20:25 Dose: 1 applicatio Documented by: Dextrose (D50w Syringe) 0 gm IV X1 PRN; Protocol PRN Reason: Hypoglycemia Glucagon () 1 mg IM .X1 PRN PRN Reason: Hypoglycemia Sodium Chloride () 1,000 mls @ 75 mls/hr IV .[id number] [facility] Last Infusion: 11/06/19 06:53 Dose: 75 mls/hr Documented by: Metronidazole (Flagyl) 500 mg in 100 mls @ 100 mls/hr IV Q8 [facility] Last Infusion: 11/06/19 06:52 Dose: Infused Documented by: Vancomycin IV Pharmacy to Dose (1 ea/ Sodium Chloride) 500 mls @ 250 mls/hr IV PRN PRN; Protocol PRN Reason: Rx to Dose Cefepime HCl 2 gm/ Sodium (Chloride) 100 mls @ 200 mls/hr IV Q8 [facility] Last Infusion: 11/06/19 05:49 Dose: Infused Documented by: Sodium Chloride () 250 mls @ 15 mls/hr IV .[id number] PRN PRN Reason: Saline Flush Sodium Chloride () 250 mls @ 15 mls/hr IV .[id number] PRN PRN Reason: Additional IVPB Infusion Vancomycin HCl 750 mg/ Sodium (Chloride) 265 mls @ 250 mls/hr IV Q12H [facility] Last Infusion: 11/06/19 05:15 Dose: Infused Documented by: Multivitamins 10 ml/ Chromium/Copper/Manganese/Seleni/Zn 1 ml/ Folic Acid 1 mg/ Amino Acids/Electrolytes 2,011 mls @ 84 mls/hr IV .[id number] [facility] Stop: 11/06/19 15:48 Last Infusion: 11/05/19 20:26 Dose: 84 mls/hr Documented by: Insulin Human Lispro (Humalog Kwikpen (Bkc)) 0 unit SC Q6 [facility]; Protocol Last Admin: 11/06/19 06:06 Dose: Not Given Documented by: Metoprolol Tartrate (Lopressor (Beta Agnieszka)) 5 mg IV Q6 [facility] Last Admin: 11/06/19 05:54 Dose: 5 mg Documented by: Morphine Sulfate () 1 mg IV Q3H PRN PRN PRN Reason: Abdominal pain 6-04/14 Last Admin: 11/05/19 22:33 Dose: 1 mg Documented by: Ondansetron HCl (Zofran) 4 mg IV Q8H PRN PRN PRN Reason: NAUSEA/VOMITING Sodium Chloride () 10 - 40 ml IV UD PRN PRN Reason: SALINE FLUSH Last Admin: 11/05/19 17:42 Dose: 10 ml Documented by: STROKE Vital Signs/Narrative: Vital Signs Temp Pulse Resp BP Pulse Ox 11/06/19 07:15 95 11/06/19 07:00 108 H 11/06/19 06:29 37.1 C 115 H 22 H 118/69 96 11/06/19 06:28 100 11/06/19 05:54 119 H 118/69 Medical Necessity - Tobacco Use Smoking Status: Former smoker Assessment/Plan All Active Problems (Last Reviewed 11/05/19 @ 01:[address] Adriano Benton MD) Severe sepsis (Acute) 1. severe sepsis * present arrival * source not yet identified, and unclear if an actual infection at this time. * blood and urine cultures pending * on cefepime, metronidazole, and vanc * COVID-19 negative 2. s/p PEG * placed on 11/03 * DW Dr. Willson, expected post procedure findings on CT. Await another 1-2 days before it can be used * currently, connected to a steele for drainage 3. elevated troponin * doubt primary ischemic event * start ASA * check echo * check D-dimer 4. Dysphagia * NPO * TPN until PEG can be used. 4. thrombocytopenia: chronic. stable. 5. VTE prophylaxis: SCDs. Avoid chemical proph given thrombocytopenia Inpatient E&M: 27055 Subs Hosp L2
--- NOTE | 2019-11-06 08:36 | ECHOD_ITS ---
Reason For Study: ELEVATED TROPONIN Procedure This was a 2D Doppler, Color Flow transthoracic echocardiogram. Exam performed portable in patient room. Left Ventricle Normal LV size. Apical false tendon noted. The estimated ejection fraction is 40 %. No regional wall motion abnormalities noted. Right Ventricle Normal RV size. Normal systolic function. Atria Normal left atrium. Normal right atrium. Mitral Valve Bileaflet diffuse mitral valve thickening. Mild-Moderate (1-2+) eccentric mitral valve insufficiency. Tricuspid Valve Normal tricuspid valve. Mild to moderate (1-2+) tricuspid valve insufficiency. Pulmonary artery systolic pressure is 50 mmHg. Moderate pulmonary hypertension. Aortic Valve Trisinus/trileaflet aortic valve. Mild-Moderate (1-2+) aortic valve insufficiency. Great Vessels Normal aortic root. The pulmonary artery is normal size. Normal inferior vena cava. Pericardium/Pleural No pericardial effusion. Moderate size left pleural effusion. MMode/2D Measurements & Calculations LVIDd: 5.3 cm IVSd: 1.0 cm Ao root diam: 3.6 cm LVIDs: 4.7 cm LVPWd: 1.0 cm LA dimension: 4.2 cm FS: 10.5 % LAV(MOD-bp): 59.6 ml LA A4 area: 19.7 cm2 RA A4 area: 14.8 cm2 LAV(MOD-bp) Indexed: 36.0 ml/m2 LAV(MOD-sp2): 62.1 ml LAV(MOD-sp4): 58.6 ml Doppler Measurements & Calculations MV E max mey: 185.0 cm/sec Ao V2 max: 182.3 cm/sec AI max mey: 380.1 cm/sec Ao max P.3 mmHg AI max P.8 mmHg Ao V2 mean: 107.5 cm/sec Ao mean P.4 mmHg AI dec slope: 647.6 cm/sec2 Ao V2 VTI: 23.3 cm AI P1/2t: 171.9 msec LV V1 max: 85.2 cm/sec PA V2 max: 72.9 cm/sec TR max mey: 339.9 cm/sec LV V1 max P.9 mmHg TR max P.3 mmHg LV V1 mean P.3 mmHg LV V1 mean: 52.7 cm/sec LV V1 VTI: 14.4 cm Interpretation Summary Normal LV size. The estimated ejection fraction is 40 %. Pulmonary artery systolic pressure is 50 mmHg. Moderate pulmonary hypertension. Mild-Moderate (1-2+) eccentric mitral valve insufficiency. Mild-Moderate (1-2+) aortic valve insufficiency. Ordering Physician: Yousif Myers Referring Physician: OTD Performed By: Marimar Allan, RDCS, RVT
--- NOTE | 2019-11-06 08:44 | PCM.PN.SRG ---
Subjective: Patient did not have any issues overnight - Physical Exam Vitals/I&O's: Vital Signs Temp Pulse Resp BP Pulse Ox 98.7 F 108 H 22 H 118/69 95 11/06/19 06:29 11/06/19 07:00 11/06/19 06:29 11/06/19 06:29 11/06/19 07:15 Oxygen Flow Rate (L/min) 2 Oxygen Delivery Method Room Air Weight: 122 lb 12.76 oz Body Mass Index (BMI) 19.3 Intake and Output for Last 24 Hours 11/04/19 11/05/19 11/06/19 23:59 23:59 23:59 Intake Total 1000 / 1000 2622.70 / 2622.70 768.75 / 768.75 Output Total 390 / 640 250 / 250 Balance 1000 / 1000 2232.70 / 1982.70 518.75 / 518.75 General: Alert, No apparent distress HEENT: Atraumatic Lungs: Normal air movement Cardiovascular: Regular rate, Regular Rhythm Abdomen: Soft, Non-Distended Microbiology Past 72 Hours 11/04/19 22:35 Urine, Catheterized Urine Culture - Preliminary Culture exhibits no growth. Laboratory Results 11/05/19 00:25: COVID-19 (GINA) Not Detected 11/05/19 08:48: Troponin I 0.144 H 11/05/19 11:29: POC Glucose 82 11/05/19 11:54: Lactic Acid 1.2 11/05/19 17:30: POC Glucose 97 11/06/19 00:29: POC Glucose 122 H 11/06/19 06:05: POC Glucose 130 H 11/06/19 06:40: Sodium 138, Potassium 3.1 L, Chloride 105, Carbon Dioxide 29.0, Anion Gap 4 L, BUN 24 H, Creatinine 0.43 L, Estim Creat Clear Calc 53.38, Est GFR (MDRD) Af Amer 252, Est GFR (MDRD) Non-Af 208, BUN/Creatinine Ratio 56.1 H, Glucose 125 H, Calcium 7.9 L, Phosphorus 2.3 L, Magnesium 2.1, Total Bilirubin 1.30 H, AST 30, ALT 46, Alkaline Phosphatase 108, Total Protein 5.3 L, Albumin 1.5 L, Globulin 3.8, Albumin/Globulin Ratio 0.4 L 11/06/19 06:40: WBC 4.5, RBC 3.46 L, Hgb 11.0 L, Hct 34.1 L, MCV 98.6 H, MCH 31.8, MCHC 32.3, RDW Std Deviation 50.1 H, RDW Coeff of Xenia 14.2, Plt Count 106 L, MPV 13.0 H, Immature Gran % (Auto) 0.700, Neut % (Auto) 78.8 H, Lymph % (Auto) 6.0 L, [place] % (Auto) 6.8, Eos % (Auto) 7.5 H, Baso % (Auto) 0.2, Absolute Neuts (auto) 3.6, Absolute Lymphs (auto) 0.27 L, Nucleated RBC % 0, Differential Comment SCANNED Current Medications Acetaminophen (Tylenol) 650 mg RECTAL Q4H PRN PRN PRN Reason: Pain Score 1-10/Temp > 100.7 F Last Admin: 11/06/19 01:28 Dose: 650 mg Documented by: Aspirin (Aspirin) 300 mg RECTAL DAILY [facility] Calamine/Phenol (Calmoseptine Ointment) 1 applic TOPICAL BID [facility]; Protocol Last Admin: 11/05/19 20:25 Dose: 1 applicatio Documented by: Dextrose (D50w Syringe) 0 gm IV X1 PRN; Protocol PRN Reason: Hypoglycemia Glucagon () 1 mg IM .X1 PRN PRN Reason: Hypoglycemia Sodium Chloride () 1,000 mls @ 75 mls/hr IV .[id number] [facility] Last Infusion: 11/06/19 06:53 Dose: 75 mls/hr Documented by: Metronidazole (Flagyl) 500 mg in 100 mls @ 100 mls/hr IV Q8 [facility] Last Infusion: 11/06/19 06:52 Dose: Infused Documented by: Vancomycin IV Pharmacy to Dose (1 ea/ Sodium Chloride) 500 mls @ 250 mls/hr IV PRN PRN; Protocol PRN Reason: Rx to Dose Cefepime HCl 2 gm/ Sodium (Chloride) 100 mls @ 200 mls/hr IV Q8 [facility] Last Infusion: 11/06/19 05:49 Dose: Infused Documented by: Sodium Chloride () 250 mls @ 15 mls/hr IV .[id number] PRN PRN Reason: Saline Flush Sodium Chloride () 250 mls @ 15 mls/hr IV .[id number] PRN PRN Reason: Additional IVPB Infusion Vancomycin HCl 750 mg/ Sodium (Chloride) 265 mls @ 250 mls/hr IV Q12H [facility] Last Infusion: 11/06/19 05:15 Dose: Infused Documented by: Multivitamins 10 ml/ Chromium/Copper/Manganese/Seleni/Zn 1 ml/ Folic Acid 1 mg/ Amino Acids/Electrolytes 2,011 mls @ 84 mls/hr IV .[id number] [facility] Stop: 11/06/19 15:48 Last Infusion: 11/05/19 20:26 Dose: 84 mls/hr Documented by: Insulin Human Lispro (Humalog Kwikpen (Bkc)) 0 unit SC Q6 [facility]; Protocol Last Admin: 11/06/19 06:06 Dose: Not Given Documented by: Metoprolol Tartrate (Lopressor (Beta Agnieszka)) 5 mg IV Q6 [facility] Last Admin: 11/06/19 05:54 Dose: 5 mg Documented by: Morphine Sulfate () 1 mg IV Q3H PRN PRN PRN Reason: Abdominal pain 6-04/14 Last Admin: 11/05/19 22:33 Dose: 1 mg Documented by: Ondansetron HCl (Zofran) 4 mg IV Q8H PRN PRN PRN Reason: NAUSEA/VOMITING Sodium Chloride () 10 - 40 ml IV UD PRN PRN Reason: SALINE FLUSH Last Admin: 11/05/19 17:42 Dose: 10 ml Documented by: Medical Necessity - Tobacco Use Smoking Status: Former smoker Assessment/Plan All Active Problems (Last Reviewed 11/05/19 @ 01:[address] Adriano Benton MD) Severe sepsis (Acute) 69-year-old male with debility and dysphasia 1. Patient had no further hypotension and only had a low-grade fever of 99. He is still on antibiotics. He is not complaining of abdominal pain to me. His PEG site looks clean dry and intact. I tightened up the bolster yesterday and put the PEG to gravity Moreira bag drainage. Stomach contents have been coming through the tube. I believe the tube is still in good position. I would wait 1 more day until hopefully his tachycardia resolves. I would not want to start tube feeds today before his vitals have normalized. I discussed this with the patient's . If his tachycardia resolves I will likely start tube feeds tomorrow and he might be good to go back to the TCU tomorrow. His white count remains normal. Lactate returned to normal. There may have been some intermittent spillage of gastric contents into the abdomen causing this reaction and if that is the case this should resolve shortly. Dylon Willson MD Pager: [facility] [address] [place] [address], [address] [place] [address] Office:
[2019-11-06] MEDS: Aspirin 300 MG Suppository RECTAL (08:46)
[2019-11-06] MEDS: Menthol/Lanolin/Calamine/Znox 113 GM Tube 1 APPLIC TOPICAL ×2 (08:47→21:46)
[2019-11-06 11:13] LABS: D-Dimer Quantitative (DVT/PE) > 20.00 FEU/ug/m (0.27-0.49)
--- NOTE | 2019-11-06 11:51 | PCM.NTREPORT ---
Nutrition Therapy Report - History Nutrition Services has been consulted to:: Manage parenteral nutrition Current diet / nutrition support order:: NPO; 2L 5%AA/20% dextrose solution w/ electrolytes - Anthropometric Measurements Height:: 5 ft 6 in Weight:: 55.7 kg Body Mass Index (BMI):: 19.8 - Relevant Labs Relevant Labs:: RBC 3.46 M/mm3 (4.6-6.2) L 11/06/19 06:40 Hgb 11.0 g/dL (13.0-16.5) L 11/06/19 06:40 Hct 34.1 % (40-54) L 11/06/19 06:40 MCV 98.6 fL (80-94) H 11/06/19 06:40 MCH 32.1 pg (27.0-32.0) H 11/05/19 03:00 RDW Std Deviation 50.1 fl (35.1-43.9) H 11/06/19 06:40 Plt Count 106 K/mm3 (150-450) L 11/06/19 06:40 MPV 13.0 fl (6.2-12.0) H 11/06/19 06:40 Neut % (Auto) 78.8 % (47-70) H 11/06/19 06:40 Lymph % (Auto) 6.0 % (19-41) L 11/06/19 06:40 Eos % (Auto) 7.5 % (0-5) H 11/06/19 06:40 Absolute Lymphs (auto) 0.27 X10^3/uL (0.83-4.51) L 11/06/19 06:40 D-Dimer Quant (PE/DVT) > 20.00 FEU/ug/m (0.27-0.49) H* 11/06/19 09:04 Sodium 134 mmol/L (136-145) L 11/05/19 03:00 Potassium 3.1 mmol/L (3.5-5.1) L 11/06/19 06:40 Carbon Dioxide 19.0 mmol/L (21.0-32.0) L 11/05/19 03:00 Anion Gap 4 (5-15) L 11/06/19 06:40 BUN 24 mg/dL (7-18) H 11/06/19 06:40 Creatinine 0.43 mg/dL (0.70-1.30) L 11/06/19 06:40 BUN/Creatinine Ratio 56.1 RATIO (10-20) H 11/06/19 06:40 Glucose 125 mg/dL (74-106) H 11/06/19 06:40 Lactic Acid 2.1 mmol/L (0.4-1.9) H* 11/05/19 07:00 Calcium 7.9 mg/dL (8.5-10.1) L 11/06/19 06:40 Phosphorus 2.3 mg/dL (2.5-4.9) L 11/06/19 06:40 Total Bilirubin 1.30 mg/dL (0.20-1.00) H 11/06/19 06:40 Direct Bilirubin 1.31 mg/dL (0.00-0.30) H 11/05/19 05:58 AST 60 U/L (15-37) H 11/05/19 05:58 ALT 66 U/L (16-61) H 11/04/19 22:15 Alkaline Phosphatase 148 U/L (45-117) H 11/05/19 05:58 Troponin I 0.144 ng/mL (<0.045) H 11/05/19 08:48 Total Protein 5.3 g/dL (6.4-8.2) L 11/06/19 06:40 Albumin 1.5 g/dL (3.2-5.0) L 11/06/19 06:40 Albumin/Globulin Ratio 0.4 RATIO (0.9-2.4) L 11/06/19 06:40 - Assessment Food / Nutrition-Related History:: RDN assisted pt w/ speaking to via phone this day. RDN then spoke w/ pts , Janee, who reports ?He has always been thin but is a really good eater. His appetite was great at home.?; estimated UBW 145-150#. Special diet-Vegetarian; eats cheese/milk/eggs. Was consuming 3 meals per day w/ largest meal at dinner w/ occasional snacks. Pt A&O to person- more alert/oriented today. Agreed to NFPE: moderate temporal scooping/depression, moderate Clavicle bone protrusion, moderate hollow look of orbital region, mild intersseous muscle depression. CBW 55kg (121#) wt increase of 0.8 kg since previous review. Upon initial inpatient admin 10/13 pt wt 133.6# noted wt loss of 12.6#/9.4% x ~3 ? weeks (severe). 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 TPN /: 2L 5%AA/20% dextrose solution w/ electrolytes. No famotidine or Insulin added to TPN. TPN to continue today and until PEG tube can be used. Per Dr. Franco continue w/ no tube feeds until pt tachycardia resolves and vitals have normalized, tube feeds possibly to start tomorrow if pt medically able. Plans for pt to return to TCU at time of discharge. Glucose increased this a.m.-125 mg/dl- no Humalog given; Magnesium in normal range (2.1 mg/dl). - Nutrition Diagnosis Problem / Etiology / Signs & Symptoms (PES):: Per ASPEN guidelines pt w/ severe malnutrition in the context of acute illness related to inadequate oral intake d/t mental status, dysphagia as evidenced by 9.4% wt loss x ~3 ? weeks, moderate loss of muscle & subcutaneous fat, and <50% PO intake >5 days. Evidence of Malnutrition Exists:: Yes Severe PCM:: Acute Illness - Nutrition Intervention Nutrition Prescription:: [id number] calories, 60-70 g protein - Food / Nutrient Delivery Interventions Summary of nutrition intervention:: TPN is not ideal for long-term nutrition support. As pt medically able rec slow initiation of PEG tube feedings and weaning of TPN. *Will require TPN renewal daily by physician; RDN will manage nutrient details of TPN and order TPN as indicated.* Nutrition support ordered as / adjusted to:: 2L 5%AA/20% dextrose solution w/ electrolytes Nutrition education provided?: No - MNT Monitoring Further MNT monitoring and evaluation required?: Yes MNT Follow-up in:: 1-2 days - Please call RDN at [phone] as needed.
[2019-11-06] MEDS: 0.9% Normal Saline 1,000 ML 75 ML IV (11:54)
[2019-11-06 12:01] LABS: Bedside Glucose 132 mg/dL (70-110)
[2019-11-06] MEDS: HEPARIN/D5w 25,000 UNITS 25,000 UNITS/250 ML IV.SOLN. 8 UNITS IV (13:34)
[2019-11-06 13:49] LABS: International Normalized Ratio 1.5; Prothrombin Time (Protime)PT. 17.2 SECONDS (11.7-14.9)
[2019-11-06 13:50] LABS: Partial Thromboplast Time 34.4 Seconds (24.1-36.2)
[2019-11-06 14:45] LABS: Vancomycin, Trough Level 6.2 ug/mL (5.0-15.0)
--- NOTE | 2019-11-06 16:28 | PCM.RX.CS ---
Consult Pharmacy has been consulted to manage selected antiobiotic: Vancomycin Type of Consult: Follow-up Suspected Infection: Sepsis Labs: Sodium 138 mmol/L (136-145) 11/06/19 06:40 Potassium 3.1 mmol/L (3.5-5.1) L 11/06/19 06:40 Chloride 105 mmol/L (98-107) 11/06/19 06:40 Carbon Dioxide 29.0 mmol/L (21.0-32.0) 11/06/19 06:40 Anion Gap 4 (5-15) L 11/06/19 06:40 BUN 24 mg/dL (7-18) H 11/06/19 06:40 Creatinine 0.43 mg/dL (0.70-1.30) L 11/06/19 06:40 Est GFR (MDRD) Af Amer 252 mL/min (>60) 11/06/19 06:40 Est GFR (MDRD) Non-Af 208 mL/min (>60) 11/06/19 06:40 BUN/Creatinine Ratio 56.1 RATIO (10-20) H 11/06/19 06:40 Glucose 125 mg/dL (74-106) H 11/06/19 06:40 Vancomycin Trough 6.2 ug/mL (5.0-15.0) 11/06/19 14:20 Microbiology: Microbiology 11/04/19 22:35 Urine, Catheterized Urine Culture - Preliminary Culture exhibits no growth. Goal Trough: 15-20 mcg/mL Pharmacy Plan for Drug Dosing: Pharmacy Service will continue to monitor and adjust dosing as required Trough of 6.2 is below goal of 15-20. Dose increased to 500mg q8h. Another trough will be obtained on 11/06 at 2330
[2019-11-06 18:11] LABS: Bedside Glucose 114 mg/dL (70-110)
[2019-11-06] MEDS: Morphine 2 MG/ML Syringe 1 MG IV (20:06)
[2019-11-06] MEDS: 0.9% Saline Lock 10 ML Syringe IV ×3 (20:06→22:25)
[2019-11-06 20:18] LABS: Partial Thromboplast Time 42.6 Seconds (24.1-36.2)
[2019-11-06] MEDS: Heparin Injection (Vial) 5,000 UNIT/ML VIAL IV (20:46)
[2019-11-07] VITALS (23 sets, daily range): BP systolic 95–153; BP diastolic 47–83; PULSE 109–144; RESP 12–40; TEMP 36.4–37.3; O2SAT 88–99; BMI 20.7
[2019-11-07 00:21] LABS: Bedside Glucose 154 mg/dL (70-110)
--- NOTE | 2019-11-07 01:02 | PCM.PN.BLA ---
Progress Note Reportedly patient pulled his PICC line. Nurses has tried IV access x5, unsuccessful. Discontinue heparin drip. Start patient on therapeutic Lovenox. STROKE Vital Signs/Narrative: Vital Signs Temp Pulse Resp BP Pulse Ox 11/06/19 23:45 98.3 F 121 H 19 H 120/69 92 11/06/19 23:21 121 H 11/06/19 22:24 138 H 11/06/19 22:23 98.1 F 138 H 23 H 132/77 H 89
[2019-11-07] MEDS: Enoxaparin 60 MG/0.6 ML Syringe 55 MG SC ×3 (01:31→22:09)
[2019-11-07] MEDS: Metoprolol Tartrate 5 MG/5 ML Vial IV ×4 (04:35→23:40)
[2019-11-07] MEDS: 0.9% Saline Lock 10 ML Syringe IV ×8 (04:36→23:46)
[2019-11-07] MEDS: Cefepime HCl 2 GM in 0.9% NS 100 ML Minibag Q8 IV ×3 (04:42→22:17)
[2019-11-07 05:01] LABS: Bedside Glucose 86 mg/dL (70-110)
[2019-11-07 05:15] LABS: Absolute Lymphocyte Count 0.47 X10^3/uL (0.83-4.51); Absolute Neutrophil Count 3.6 X10^3/uL (2.0-7.7); Basophil# 0.01 X10^3/uL; Basophil% 0.2 % (0-1); Eosinophil# 0.21 X10^3/uL; Eosinophils% 4.4 % (0-5); Hematocrit 33.8 % (40-54); Hemoglobin 11.3 g/dL (13.0-16.5); Lymphocyte # 0.47 X10^3/ul (4.0); Lymphocyte % 9.9 % (19-41); Mean Corp Hgb Conc 33.4 g/dL (32-36); Mean Corpuscular Hgb 31.3 pg (27.0-32.0); Mean Corpuscular Volume 93.6 fL (80-94); Monocyte# 0.46 X10^3/uL; Monocyte% 9.7 % (0-10); NRBC Flagged by Analyzer 0 % (0-5); Neutrophil # 3.56 X10^3/uL (2.7-7.7); Neutrophil % 75.4 % (47-70); POSITIVE DIFFERENTIAL YES; Platelet Count 158 K/mm3 (150-450); RBC Distribution Width CV 13.6 % (11.6-14.6); RBC Distribution Width SD 46.7 fl (35.1-43.9); Red Blood Count 3.61 M/mm3 (4.6-6.2); White Blood Count 4.7 K/mm3 (4.4-11.0)
[2019-11-07 05:19] LABS: Differential Indicated SCAN CRITERIA MET
[2019-11-07 05:37] LABS: Anion Gap 6 (5-15); BUN 22 mg/dL (7-18); BUN/Creat Ratio 61.5 RATIO (10-20); Calcium,Total 8.1 mg/dL (8.5-10.1); Chloride 108 mmol/L (98-107); Creatinine, Serum 0.36 mg/dL (0.70-1.30); EST Glomerular Filtration Rate 256 mL/min (>60); Est Glom Filt Rate - Afr Amer 310 mL/min (>60); Estimated Creatinine Clearance 53.38 ml/min; Glucose 82 mg/dL (74-106); Sodium Level 140 mmol/L (136-145)
[2019-11-07 05:40] LABS: Atypical Lymphocyte RARE %; Differential Comment SCANNED
--- NOTE | 2019-11-07 08:32 | CT_ITS ---
STUDY: CTA CHEST REASON FOR EXAM: Male, 69 years old. Sepsis, PEG confirmation, diabetes, hypertension, COPD, left renal artery bypass. RADIATION DOSAGE (If Supplied By Facility): CTDIvol = ( 12.26 ) mGy, DLP = ( 880.49 ) mGycm TECHNIQUE: The examination was performed with the intravenous administration of IV 100mL Isovue-370. Post-processing of the angiographic images was performed, with multiplanar reformation and 3D reconstruction. Individualized dose optimization techniques were used for this CT. COMPARISON: Comparison is made with prior study dated October 14, 2019. FINDINGS: Normal enhancement of the main pulmonary artery and right and left pulmonary arteries. Normal enhancement of the bilateral peripheral pulmonary arteries. There is no demonstrated pulmonary embolism. There is atherosclerotic tortuosity and atherosclerotic calcification of the aortic arch and descending thoracic aorta. The descending thoracic aorta is dilated measuring 3.9 cm in transverse dimension. There is no demonstrated aortic dissection. There are calcifications of the coronary arteries. Normal mediastinum. Normal hilar regions. Normal visualized trachea and bronchi. Hypoinflation. Bilateral pleural effusions right greater than left with bibasilar infiltration and/or atelectasis superimposed on chronic emphysematous changes and bullous formation. Since prior study, there has been progressive infiltration in the right upper lobe. Normal pleura. Normal chest wall structures. There are degenerative changes of thoracic spine. Dextroscoliosis of the thoracic spine. Normal visualized upper abdomen. CT/CTA Chest W/WO Contrast IMPRESSION: Moderate degree of bilateral pleural effusions with infiltration of the lung bases and new infiltrate in the right upper lobe superimposed on chronic emphysematous changes and bullous formation as well as pulmonary fibrosis. Electronically Signed: Flaco Gale, at 12:25 EDT , Service support ,
--- NOTE | 2019-11-07 08:33 | CT_ITS ---
STUDY: CT ABDOMEN WITH CONTRAST REASON FOR EXAM: Male, 69 years old. Sepsis, PEG confirmation, diabetes, hypertension, COPD, left renal artery bypass. RADIATION DOSAGE (If Supplied By Facility): CTDIvol = ( 12.26 ) mGy, DLP = ( 880.49 ) mGycm TECHNIQUE: Transaxial images were obtained post I.V. administration of IV 100mL Isovue-370, and with oral contrast. Sagittal and coronal images were reconstructed. Individualized dose optimization techniques were used for this CT. COMPARISON: Comparison is made with prior study dated November 04, 2019. FINDINGS: Moderate size bilateral pleural effusions with bibasilar atelectasis superimposed on chronic scarring and bullous formation in the right lower lobe. Coronary artery calcification. Normal liver. Normal gallbladder and extrahepatic biliary system. Normal spleen. Normal pancreas. Normal bilateral adrenal glands. Stable small bilateral renal cysts. No PEG tube is seen at this time. Normal small intestine. Normal colon. The appendix is visualized and appears normal. There is diffuse atherosclerotic calcification of the abdominal aorta with elongation and tortuosity. Stable infrarenal abdominal aortic aneurysm with a transverse dimension of 5.2 cm. Dense atherosclerotic calcification of the common iliac arteries bilaterally.Normal inferior vena cava. Normal retroperitoneum. Normal abdominal wall. There are diffuse degenerative changes of the visualized lumbar spine. CT/Abdomen WITH IV Contrast IMPRESSION: Stable examination. The PEG tube is not seen at this time. Electronically Signed: Flaco Gale, at 12:29 EDT , Service support ,
[2019-11-07] MEDS: metroNIDAZOLE 500 MG/100 ML BAG 100 MG IV ×2 (08:34→14:22)
--- NOTE | 2019-11-07 08:34 | PN.SURG_ITS ---
Subjective: Patient had no acute issues overnight except for pulling his PICC line - Physical Exam Vitals/I&O's: Vital Signs Temp Pulse Resp BP Pulse Ox 99.2 F H 133 H 19 H 113/47 L 97 11/07/19 06:39 11/07/19 07:54 11/07/19 06:39 11/07/19 06:39 11/07/19 07:02 Oxygen Flow Rate (L/min) 3 Oxygen Delivery Method Nasal Cannula Weight: 128 lb 8.472 oz Body Mass Index (BMI) 19.8 Intake and Output for Last 24 Hours 11/05/19 11/06/19 11/07/19 23:59 23:59 23:59 Intake Total 2622.70 / 2622.70 3645.05 / 3645.05 1350.15 / 1350.15 Output Total 390 / 640 425 / 425 475 / 475 Balance 2232.70 / 1982.70 3220.05 / 3220.05 875.15 / 875.15 General: Alert, No apparent distress Lungs: Normal air movement, No rhonchi Cardiovascular: Tachycardic Abdomen: Soft, Non-Distended Microbiology Past 72 Hours 11/04/19 22:35 Urine, Catheterized Urine Culture - Preliminary Culture exhibits no growth. Laboratory Results 11/06/19 09:04: D-Dimer Quant (PE/DVT) > 20.00 H* 11/06/19 11:52: POC Glucose 132 H 11/06/19 13:30: PT 17.2 H, INR 1.5, APTT 34.4 11/06/19 14:20: Vancomycin Trough 6.2 11/06/19 17:53: POC Glucose 114 H 11/06/19 19:48: APTT 42.6 H 11/07/19 00:07: POC Glucose 154 H 11/07/19 04:38: WBC 4.7, RBC 3.61 L, Hgb 11.3 L, Hct 33.8 L, MCV 93.6 D, MCH 31.3, MCHC 33.4, RDW Std Deviation 46.7 H, RDW Coeff of Xenia 13.6, Plt Count 158, MPV 13.0 H, Immature Gran % (Auto) 0.400, Neut % (Auto) 75.4 H, Lymph % (Auto) 9.9 L, [place] % (Auto) 9.7, Eos % (Auto) 4.4, Baso % (Auto) 0.2, Absolute Neuts (auto) 3.6, Absolute Lymphs (auto) 0.47 L, Nucleated RBC % 0, Differential Comment SCANNED, Atypical Lymphocytes RARE 11/07/19 04:38: Sodium 140, Potassium 3.0 L, Chloride 108 H, Carbon Dioxide 26.0, Anion Gap 6, BUN 22 H, Creatinine 0.36 L, Estim Creat Clear Calc 53.38, Est GFR (MDRD) Af Amer 310, Est GFR (MDRD) Non-Af 256, BUN/Creatinine Ratio 61.5 H, Glucose 82, Calcium 8.1 L 11/07/19 04:54: POC Glucose 86 Current Medications Acetaminophen (Tylenol) 650 mg RECTAL Q4H PRN PRN PRN Reason: Pain Score 1-10/Temp > 100.7 F Last Admin: 11/06/19 01:28 Dose: 650 mg Documented by: Aspirin (Aspirin) 300 mg RECTAL DAILY [facility] Last Admin: 11/06/19 08:46 Dose: 300 mg Documented by: Calamine/Phenol (Calmoseptine Ointment) 1 applic TOPICAL BID [facility]; Protocol Last Admin: 11/06/19 21:46 Dose: 1 applicatio Documented by: Dextrose (D50w Syringe) 0 gm IV X1 PRN; Protocol PRN Reason: Hypoglycemia Enoxaparin Sodium (Lovenox) 55 mg SC BID [facility] Last Admin: 11/07/19 01:31 Dose: 55 mg Documented by: Glucagon () 1 mg IM .X1 PRN PRN Reason: Hypoglycemia Sodium Chloride () 1,000 mls @ 75 mls/hr IV .[id number] [facility] Last Infusion: 11/07/19 00:50 Dose: 0 mls/hr Documented by: Metronidazole (Flagyl) 500 mg in 100 mls @ 100 mls/hr IV Q8 [facility] Last Infusion: 11/06/19 23:45 Dose: Infused Documented by: Vancomycin IV Pharmacy to Dose (1 ea/ Sodium Chloride) 500 mls @ 250 mls/hr IV PRN PRN; Protocol PRN Reason: Rx to Dose Cefepime HCl 2 gm/ Sodium (Chloride) 100 mls @ 200 mls/hr IV Q8 [facility] Last Admin: 11/07/19 04:42 Dose: 30 mls/hr Documented by: Sodium Chloride () 250 mls @ 15 mls/hr IV .[id number] PRN PRN Reason: Saline Flush Sodium Chloride () 250 mls @ 15 mls/hr IV .[id number] PRN PRN Reason: Additional IVPB Infusion Multivitamins 10 ml/ Chromium/Copper/Manganese/Seleni/Zn 1 ml/ Folic Acid 1 mg/ Amino Acids/Electrolytes 2,011 mls @ 84 mls/hr IV .[id number] [facility] Stop: 11/07/19 15:48 Last Infusion: 11/07/19 00:50 Dose: 0 mls/hr Documented by: Vancomycin HCl () 500 mg in 100 mls @ 100 mls/hr IV Q8H [facility] Last Admin: 11/07/19 01:03 Dose: Not Given Documented by: Insulin Human Lispro (Humalog Kwikpen (Bkc)) 0 unit SC Q6 [facility]; Protocol Last Admin: 11/07/19 04:54 Dose: Not Given Documented by: Metoprolol Tartrate (Lopressor (Beta Agnieszka)) 5 mg IV Q6 [facility] Last Admin: 11/07/19 04:35 Dose: 5 mg Documented by: Morphine Sulfate () 1 mg IV Q3H PRN PRN PRN Reason: Abdominal pain 6-04/14 Last Admin: 11/06/19 20:06 Dose: 1 mg Documented by: Ondansetron HCl (Zofran) 4 mg IV Q8H PRN PRN PRN Reason: NAUSEA/VOMITING Sodium Chloride () 10 - 40 ml IV UD PRN PRN Reason: SALINE FLUSH Last Admin: 11/07/19 04:36 Dose: 20 ml Documented by: Medical Necessity - Tobacco Use Smoking Status: Former smoker Assessment/Plan All Active Problems (Last Reviewed 11/05/19 @ 01:[address] Adriano Benton MD) Severe sepsis (Acute) 69-year-old male with tachycardia and PEG tube placed 1. The patient still appears to have a soft abdomen and his white count appears to continue to be normal. His gastric contents are still draining into Moreira bag through his PEG tube. Given the fact that he is still tachycardic and he has now required nasal cannula PE was considered. I discussed with Dr. Mas at this morning and we decided to change the VQ scan to a CTA. He does have some chronic renal sufficiency but he will be given fluids following the procedure. I have also asked that oral contrast be placed into the PEG tube [address] scan to ensure that there is no leaking. If there is no leak from the PEG tube, tube feeds may be initiated. Dylon Willson MD Pager: [facility] [address] [place] [address] [address] [place] [address] Office:
--- NOTE | 2019-11-07 09:58 | NURSING ---
Pt has a 24 in left wrist several times occlusion.ATB stopped and FIBER DESIGNER re started a 20G in patient left upper arm. was called and confirmed that contrast is to be given as bolus and clamp peg tube. This was given at 0945. Pt will go to cat scan at 1045 for testing. Spouse was called and given consent for pt to have picc line replace.
--- NOTE | 2019-11-07 10:46 | PCM.PN.HOSP ---
<Jose Rangel - Last Filed: 11/07/19 10:46> Reason for Visit: Confusion Subjective: Pt confused this AM. A/Ox1, states year is [address]22 [address] is [place]. He c/o lower abd pain, chest pain, sob, however it is not clear if he has these or is just saying yes when a question is asked. I do not feel that he is appropriately responding to questions. He is unsure of his advance directives and says to ask his . Pt pulled his PICC line last night. Vitals/I&O's: Vital Signs Temp Pulse Resp BP Pulse Ox 98.2 F 129 H 18 121/69 H 99 11/07/19 08:36 11/07/19 08:36 11/07/19 08:36 11/07/19 08:36 11/07/19 08:36 Oxygen Flow Rate (L/min) 2 Oxygen Delivery Method Nasal Cannula Weight: 128 lb 8.472 oz Body Mass Index (BMI) 19.8 Intake and Output for Last 24 Hours 11/05/19 11/06/19 11/07/19 23:59 23:59 23:59 Intake Total 2622.70 / 2622.70 3645.05 / 3645.05 1368.48 / 1368.48 Output Total 390 / 640 425 / 425 475 / 475 Balance 2232.70 / 1982.70 3220.05 / 3220.05 893.48 / 893.48 General: Alert, Cooperative, Confused HEENT: Atraumatic, PERRLA, EOMI, Normocephalic Neck: Supple, No JVD, Negative Carotid Bruits Lungs: Clear to auscultation, Diminished Cardiovascular: No murmurs, Tachycardic Abdomen: Soft, Tender - suprapubic and right inguinal more pronounced Extremities: No edema, Capillary Refill Less than 3 Seconds Skin: No rashes, No breakdown Musculoskeletal: No Tenderness to Palpation of Joints or Extremities Neurological: Cranial nerves II-XII grossly intact Psych/Mental Status: Normal Affect, Appropriate Microbiology Past 72 Hours 11/04/19 22:35 Urine, Catheterized Urine Culture - Final Culture exhibits no growth. Laboratory Results 11/06/19 09:04: D-Dimer Quant (PE/DVT) > 20.00 H* 11/06/19 11:52: POC Glucose 132 H 11/06/19 13:30: PT 17.2 H, INR 1.5, APTT 34.4 11/06/19 14:20: Vancomycin Trough 6.2 11/06/19 17:53: POC Glucose 114 H 11/06/19 19:48: APTT 42.6 H 11/07/19 00:07: POC Glucose 154 H 11/07/19 04:38: WBC 4.7, RBC 3.61 L, Hgb 11.3 L, Hct 33.8 L, MCV 93.6 D, MCH 31.3, MCHC 33.4, RDW Std Deviation 46.7 H, RDW Coeff of Xenia 13.6, Plt Count 158, MPV 13.0 H, Immature Gran % (Auto) 0.400, Neut % (Auto) 75.4 H, Lymph % (Auto) 9.9 L, [place] % (Auto) 9.7, Eos % (Auto) 4.4, Baso % (Auto) 0.2, Absolute Neuts (auto) 3.6, Absolute Lymphs (auto) 0.47 L, Nucleated RBC % 0, Differential Comment SCANNED, Atypical Lymphocytes RARE 11/07/19 04:38: Sodium 140, Potassium 3.0 L, Chloride 108 H, Carbon Dioxide 26.0, Anion Gap 6, BUN 22 H, Creatinine 0.36 L, Estim Creat Clear Calc 53.38, Est GFR (MDRD) Af Amer 310, Est GFR (MDRD) Non-Af 256, BUN/Creatinine Ratio 61.5 H, Glucose 82, Calcium 8.1 L 11/07/19 04:54: POC Glucose 86 Current Medications Acetaminophen (Tylenol) 650 mg RECTAL Q4H PRN PRN PRN Reason: Pain Score 1-10/Temp > 100.7 F Last Admin: 11/06/19 01:28 Dose: 650 mg Documented by: Aspirin (Aspirin) 300 mg RECTAL DAILY [facility] Last Admin: 11/06/19 08:46 Dose: 300 mg Documented by: Calamine/Phenol (Calmoseptine Ointment) 1 applic TOPICAL BID [place]; Protocol Last Admin: 11/06/19 21:46 Dose: 1 applicatio Documented by: Dextrose (D50w Syringe) 0 gm IV X1 PRN; Protocol PRN Reason: Hypoglycemia Enoxaparin Sodium (Lovenox) 55 mg SC BID [facility] Last Admin: 11/07/19 01:31 Dose: 55 mg Documented by: Glucagon () 1 mg IM .X1 PRN PRN Reason: Hypoglycemia Sodium Chloride () 1,000 mls @ 75 mls/hr IV .[id number] [facility] Last Infusion: 11/07/19 00:50 Dose: 0 mls/hr Documented by: Metronidazole (Flagyl) 500 mg in 100 mls @ 100 mls/hr IV Q8 [facility] Last Infusion: 11/07/19 09:40 Dose: 100 mls/hr Documented by: Vancomycin IV Pharmacy to Dose (1 ea/ Sodium Chloride) 500 mls @ 250 mls/hr IV PRN PRN; Protocol PRN Reason: Rx to Dose Cefepime HCl 2 gm/ Sodium (Chloride) 100 mls @ 200 mls/hr IV Q8 [facility] Last Admin: 11/07/19 04:42 Dose: 30 mls/hr Documented by: Sodium Chloride () 250 mls @ 15 mls/hr IV .[id number] PRN PRN Reason: Saline Flush Sodium Chloride () 250 mls @ 15 mls/hr IV .[id number] PRN PRN Reason: Additional IVPB Infusion Multivitamins 10 ml/ Chromium/Copper/Manganese/Seleni/Zn 1 ml/ Folic Acid 1 mg/ Amino Acids/Electrolytes 2,011 mls @ 84 mls/hr IV .[id number] [facility] Stop: 11/07/19 15:48 Last Infusion: 11/07/19 00:50 Dose: 0 mls/hr Documented by: Vancomycin HCl () 500 mg in 100 mls @ 100 mls/hr IV Q8H [facility] Last Admin: 11/07/19 01:03 Dose: Not Given Documented by: Potassium Chloride () 10 meq in 100 mls @ 100 mls/hr IV BOLUS Q1H [facility] Stop: 11/07/19 12:59 Insulin Human Lispro (Humalog Kwikpen (Bkc)) 0 unit SC Q6 [facility]; Protocol Last Admin: 11/07/19 04:54 Dose: Not Given Documented by: Metoprolol Tartrate (Lopressor (Beta Agnieszka)) 5 mg IV Q6 [facility] Last Admin: 11/07/19 04:35 Dose: 5 mg Documented by: Morphine Sulfate () 1 mg IV Q3H PRN PRN PRN Reason: Abdominal pain 6-04/14 Last Admin: 11/06/19 20:06 Dose: 1 mg Documented by: Ondansetron HCl (Zofran) 4 mg IV Q8H PRN PRN PRN Reason: NAUSEA/VOMITING Sodium Chloride () 10 - 40 ml IV UD PRN PRN Reason: SALINE FLUSH Last Admin: 11/07/19 04:36 Dose: 20 ml Documented by: STROKE Vital Signs/Narrative: Vital Signs Temp Pulse Resp BP Pulse Ox 11/07/19 08:36 98.2 F 129 H 18 121/69 H 99 11/07/19 07:54 133 H 11/07/19 07:02 97 Medical Necessity - Tobacco Use Smoking Status: Former smoker Assessment/Plan All Active Problems (Last Reviewed 11/05/19 @ 01:[address] Adriano Benton MD) Severe sepsis (Acute) 1. acute metabolic encephalopathy 2/2 Severe sepsis 2/2 possible intraabdominal infection - reportedly free abd air on prior imaging. CT abd pending today. Still tachy + ?SOB. CTA chest to be obtained. elevated Dimer. tmax 99.2. no leukocytosis. Continue vanc, cefepime and flagyl 2. s/p PEG, 2/2 dysphagia - remains NPO. continue q6h insulin. 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 3. elevated trop - rectal aspirin, echo pending. dimer elevated. cta chest pending. NPO. DVT ppx: lovenox DC planning: came from [facility], likely needs return to [facility] This patient was seen by Jose Rangel PA-C under the supervision of Dr. Mas. <Kvng Mas - Last Filed: 11/07/19 17:23> Reason for Visit: Confusion. Patient had tachycardia after PEG tube insertion. Objective: Detailed history is unobtainable as patient is confused, disoriented and not comprehensive. He does not remember the year and the month and confused with his date of , age and place. Denies shortness of breath or chest pain or arrhythmia. Denies abdominal pain but mild mid abdominal tenderness. Vitals/I&O's: Vital Signs Temp Pulse Resp BP Pulse Ox 97.6 F L 114 H 18 118/67 97 11/07/19 13:55 11/07/19 13:55 11/07/19 13:55 11/07/19 13:55 11/07/19 13:55 Oxygen Flow Rate (L/min) 2 Oxygen Delivery Method Nasal Cannula Weight: 128 lb 8.472 oz Body Mass Index (BMI) 20.7 Intake and Output for Last 24 Hours 11/05/19 11/06/19 11/07/19 23:59 23:59 23:59 Intake Total 2622.70 / 2622.70 3645.05 / 3645.05 2080.15 / 208.15 Output Total 390 / 640 425 / 425 875 / 875 Balance 2232.70 / 1982.70 3220.05 / 3220.05 1205.15 / 1205.15 General: Cooperative, Confused, Disoriented HEENT: Atraumatic, PERRLA, EOMI, Normocephalic Neck: Supple, No JVD, Negative Carotid Bruits Lungs: Clear to auscultation, No rhonchi, No wheeze, No rales, Diminished Cardiovascular: Normal S1, Normal S2, No murmurs, Tachycardic Abdomen: Bowel Sounds Present, Soft, Non Tender, Tender - suprapubic and right inguinal more pronounced Mid abdomen and umbilical and hypogastric region. Extremities: No edema, Capillary Refill Less than 3 Seconds Skin: No rashes, No breakdown Musculoskeletal: No Tenderness to Palpation of Joints or Extremities, Arthritic Changes Neurological: Cranial nerves II-XII grossly intact, Deep Tendon Reflexes 2+/4 and Symmetrical, Neuro grossly intact Psych/Mental Status: Normal Affect, Appropriate Microbiology Past 72 Hours 11/04/19 23:25 Blood Culture (Wb) - Right Hand Blood Culture - Preliminary No growth in 48 hours. 11/04/19 22:15 Blood Culture (Wb) - Pic Blood Culture - Preliminary No growth in 48 hours. 11/04/19 22:35 Urine, Catheterized Urine Culture - Final Culture exhibits no growth. Laboratory Results 11/06/19 17:53: POC Glucose 114 H 11/06/19 19:48: APTT 42.6 H 11/07/19 00:07: POC Glucose 154 H 11/07/19 04:38: WBC 4.7, RBC 3.61 L, Hgb 11.3 L, Hct 33.8 L, MCV 93.6 D, MCH 31.3, MCHC 33.4, RDW Std Deviation 46.7 H, RDW Coeff of Xenia 13.6, Plt Count 158, MPV 13.0 H, Immature Gran % (Auto) 0.400, Neut % (Auto) 75.4 H, Lymph % (Auto) 9.9 L, [place] % (Auto) 9.7, Eos % (Auto) 4.4, Baso % (Auto) 0.2, Absolute Neuts (auto) 3.6, Absolute Lymphs (auto) 0.47 L, Nucleated RBC % 0, Differential Comment SCANNED, Atypical Lymphocytes RARE 11/07/19 04:38: Sodium 140, Potassium 3.0 L, Chloride 108 H, Carbon Dioxide 26.0, Anion Gap 6, BUN 22 H, Creatinine 0.36 L, Estim Creat Clear Calc 53.38, Est GFR (MDRD) Af Amer 310, Est GFR (MDRD) Non-Af 256, BUN/Creatinine Ratio 61.5 H, Glucose 82, Calcium 8.1 L 11/07/19 04:54: POC Glucose 86 11/07/19 12:21: POC Glucose 75 Current Medications Acetaminophen (Tylenol) 650 mg RECTAL Q4H PRN PRN PRN Reason: Pain Score 1-10/Temp > 100.7 F Last Admin: 11/06/19 01:28 Dose: 650 mg Documented by: Aspirin (Aspirin) 300 mg RECTAL DAILY [facility] Last Admin: 11/07/19 12:25 Dose: 300 mg Documented by: Calamine/Phenol (Calmoseptine Ointment) 1 applic TOPICAL BID [facility]; Protocol Last Admin: 11/07/19 12:25 Dose: 1 applicatio Documented by: Dextrose (D50w Syringe) 0 gm IV X1 PRN; Protocol PRN Reason: Hypoglycemia Enoxaparin Sodium (Lovenox) 55 mg SC BID [facility] Last Admin: 11/07/19 13:02 Dose: 55 mg Documented by: Glucagon () 1 mg IM .X1 PRN PRN Reason: Hypoglycemia Sodium Chloride () 1,000 mls @ 75 mls/hr IV .[id number] [facility] Last Admin: 11/07/19 12:46 Dose: 75 mls/hr Documented by: Metronidazole (Flagyl) 500 mg in 100 mls @ 100 mls/hr IV Q8 [facility] Last Infusion: 11/07/19 15:52 Dose: Infused Documented by: Vancomycin IV Pharmacy to Dose (1 ea/ Sodium Chloride) 500 mls @ 250 mls/hr IV PRN PRN; Protocol PRN Reason: Rx to Dose Cefepime HCl 2 gm/ Sodium (Chloride) 100 mls @ 200 mls/hr IV Q8 [facility] Last Infusion: 11/07/19 15:58 Dose: Infused Documented by: Sodium Chloride () 250 mls @ 15 mls/hr IV .[id number] PRN PRN Reason: Saline Flush Sodium Chloride () 250 mls @ 15 mls/hr IV .[id number] PRN PRN Reason: Additional IVPB Infusion Dextrose/Sodium Chloride (Dextrose 5%/0.9% Nacl) 1,000 mls @ 75 mls/hr IV .[id number] [facility] Last Admin: 11/07/19 13:10 Dose: 75 mls/hr Documented by: Multivitamins 10 ml/ Chromium/Copper/Manganese/Seleni/Zn 1 ml/ Folic Acid 1 mg/ Amino Acids/Electrolytes 2,011 mls @ 84 mls/hr IV .[id number] [facility] Stop: 11/08/19 15:48 Fat Emulsion Intravenous (Intralipid 20%) 250 mls @ 21 mls/hr IV .[id number] [facility] Stop: 11/08/19 03:54 Vancomycin HCl () 500 mg in 100 mls @ 100 mls/hr IV Q8H [facility] Insulin Human Lispro (Humalog Kwikpen (Bkc)) 0 unit SC Q6 [facility]; Protocol Last Admin: 11/07/19 13:02 Dose: Not Given Documented by: Metoprolol Tartrate (Lopressor (Beta Agnieszka)) 5 mg IV Q6 [facility] Last Admin: 11/07/19 13:03 Dose: 5 mg Documented by: Morphine Sulfate () 1 mg IV Q3H PRN PRN PRN Reason: Abdominal pain 6-04/14 Last Admin: 11/07/19 16:49 Dose: 1 mg Documented by: Ondansetron HCl (Zofran) 4 mg IV Q8H PRN PRN PRN Reason: NAUSEA/VOMITING Sodium Chloride () 10 - 40 ml IV UD PRN PRN Reason: SALINE FLUSH Last Admin: 11/07/19 16:49 Dose: 10 ml Documented by: STROKE Vital Signs/Narrative: Vital Signs Temp Pulse Resp BP Pulse Ox 11/07/19 13:55 97.6 F L 114 H 18 118/67 97 Assessment/Plan This patient was seen in conjunction with Jose MAGDALENO. I have independently interviewed and examined the patient and reviewed pertinent history, examination findings, laboratory and plan of management. I have reviewed the note and agree with the documented findings with the few additional points. In brief, patient is admitted for acute metabolic encephalopathy probably secondary to intra-abdominal infection: Patient had free air under diaphragm on prior imaging but repeat CT abdomen did not show it. Subsequently patient had PEG tube on last Thursday and then had tachycardia. Repeat CT with oral contrast was done which reported stable but no PEG tube seen. CT chest did not show PE but bilateral pleural effusion, right more than left with underlying infiltrate and atelectasis. Chronic fibrosis and cystic and bullous appearance of emphysematous disease. New infiltrate on right upper lobe. On IV cefepime. Vancomycin and Flagyl discontinued as patient did not had fever for last 3 days, blood cultures negative for more than 48 hours and urine culture negative. Discussed with surgeon. I think patient has cognitive deficit. I have discussed my assessment with Jose MAGDALENO and orders have been reviewed. Clinical Impression(s) from Imaging Studies Abdomen/Pelvis CT 11/04/19 22:27 IMPRESSION: 1. A new left mid abdominal PEG tube is present in the proximal one third aspect of the stomach. 2. A small amount of extraluminal air and tiny amounts of fluid are present in the left anterior intra-abdominal region directly adjacent to the portion of the stomach containing the PEG tube most likely related to recent placement procedure. 3. Test injection of the PEG tube with contrast in consultation with the service that placed the feeding tube can be performed to evaluate for possible extraluminal leakage. 4. Previously seen moderate bilateral pleural effusions are decreased in volume with a tiny amount seen on the right and a small amount remaining on the left. Chest X-Ray 11/04/19 23:00 IMPRESSION: 1. Chronic appearing scattered and consolidative fibrosis of both lungs, most prominent in the right upper lobe. 2. Cystic emphysematous changes Chest CTA 11/07/19 08:32 IMPRESSION: Moderate degree of bilateral pleural effusions with infiltration of the lung bases and new infiltrate in the right upper lobe superimposed on chronic emphysematous changes and bullous formation as well as pulmonary fibrosis. Abdomen CT 11/07/19 08:33 IMPRESSION: Stable examination. The PEG tube is not seen at this time. Inpatient E&M: 62743 Subs Hosp L2
[2019-11-07] MEDS: Aspirin 300 MG Suppository RECTAL (12:25)
[2019-11-07] MEDS: Menthol/Lanolin/Calamine/Znox 113 GM Tube 1 APPLIC TOPICAL ×2 (12:25→22:08)
[2019-11-07 12:36] LABS: Bedside Glucose 75 mg/dL (70-110)
[2019-11-07] MEDS: Vancomycin IV 500 MG/100 ML BAG 100 MG IV (12:39)
[2019-11-07] MEDS: 0.9% Normal Saline 1,000 ML 75 ML IV (12:46)
[2019-11-07] MEDS: Potassium Chloride 10mEq/100mL 10 MEQ/100 ML IV.SOLN. 100 MEQ IV BOLUS ×4 (12:46→17:49)
[2019-11-07] MEDS: Dextrose 5%/0.9% NaCl 1,000 ML 75 ML IV (13:10)
--- NOTE | 2019-11-07 14:57 | PCM.RX.CS ---
Consult Pharmacy has been consulted to manage selected antiobiotic: Vancomycin Type of Consult: Follow-up Suspected Infection: Sepsis Prior Doses of Antibiotics Received/Current Regimen: On 500mg iv q8h. Labs: Sodium 140 mmol/L (136-145) 11/07/19 04:38 Potassium 3.0 mmol/L (3.5-5.1) L 11/07/19 04:38 Chloride 108 mmol/L (98-107) H 11/07/19 04:38 Carbon Dioxide 26.0 mmol/L (21.0-32.0) 11/07/19 04:38 Anion Gap 6 (5-15) 11/07/19 04:38 BUN 22 mg/dL (7-18) H 11/07/19 04:38 Creatinine 0.36 mg/dL (0.70-1.30) L 11/07/19 04:38 Est GFR (MDRD) Af Amer 310 mL/min (>60) 11/07/19 04:38 Est GFR (MDRD) Non-Af 256 mL/min (>60) 11/07/19 04:38 BUN/Creatinine Ratio 61.5 RATIO (10-20) H 11/07/19 04:38 Glucose 82 mg/dL (74-106) 11/07/19 04:38 Vancomycin Trough 6.2 ug/mL (5.0-15.0) 11/06/19 14:20 Microbiology: Microbiology 11/04/19 23:25 Blood Culture (Wb) - Right Hand Blood Culture - Preliminary No growth in 48 hours. 11/04/19 22:15 Blood Culture (Wb) - Pic Blood Culture - Preliminary No growth in 48 hours. 11/04/19 22:35 Urine, Catheterized Urine Culture - Final Culture exhibits no growth. Weight used for dosin.3 kg Estimated Creatinine Clearance: ~53ml/min Goal Trough: 15-20 mcg/mL Pharmacy Plan for Drug Dosing: Vanco off schedule D/T IV access. Trough level rescheduled for 5.5.20 @1130. Will continue 500mg iv q8h and determine dosing after level reported. Pharmacy Service will continue to monitor and adjust dosing as required. Follow-Up Labs: Trough Vancomycin - 5.5.20 @1130 before 1200 dose
--- NOTE | 2019-11-07 15:37 | NT.THERAPY_ITS ---
Nutrition Therapy Report - History Nutrition Services has been consulted to:: Manage parenteral nutrition Current diet / nutrition support order:: NPO/TPN - Anthropometric Measurements Height:: 5 ft 6 in Weight:: 58.3 kg Body Mass Index (BMI):: 20.7 - Relevant Labs Relevant Labs:: RBC 3.61 M/mm3 (4.6-6.2) L 11/07/19 04:38 Hgb 11.3 g/dL (13.0-16.5) L 11/07/19 04:38 Hct 33.8 % (40-54) L 11/07/19 04:38 MCV 98.6 fL (80-94) H 11/06/19 06:40 MCH 32.1 pg (27.0-32.0) H 11/05/19 03:00 RDW Std Deviation 46.7 fl (35.1-43.9) H 11/07/19 04:38 Plt Count 106 K/mm3 (150-450) L 11/06/19 06:40 MPV 13.0 fl (6.2-12.0) H 11/07/19 04:38 Neut % (Auto) 75.4 % (47-70) H 11/07/19 04:38 Lymph % (Auto) 9.9 % (19-41) L 11/07/19 04:38 Eos % (Auto) 7.5 % (0-5) H 11/06/19 06:40 Absolute Lymphs (auto) 0.47 X10^3/uL (0.83-4.51) L 11/07/19 04:38 PT 17.2 SECONDS (11.7-14.9) H 11/06/19 13:30 APTT 42.6 Seconds (24.1-36.2) H 11/06/19 19:48 D-Dimer Quant (PE/DVT) > 20.00 FEU/ug/m (0.27-0.49) H* 11/06/19 09:04 Sodium 134 mmol/L (136-145) L 11/05/19 03:00 Potassium 3.0 mmol/L (3.5-5.1) L 11/07/19 04:38 Chloride 108 mmol/L (98-107) H 11/07/19 04:38 Carbon Dioxide 19.0 mmol/L (21.0-32.0) L 11/05/19 03:00 Anion Gap 4 (5-15) L 11/06/19 06:40 BUN 22 mg/dL (7-18) H 11/07/19 04:38 Creatinine 0.36 mg/dL (0.70-1.30) L 11/07/19 04:38 BUN/Creatinine Ratio 61.5 RATIO (10-20) H 11/07/19 04:38 Glucose 125 mg/dL (74-106) H 11/06/19 06:40 Lactic Acid 2.1 mmol/L (0.4-1.9) H* 11/05/19 07:00 Calcium 8.1 mg/dL (8.5-10.1) L 11/07/19 04:38 Phosphorus 2.3 mg/dL (2.5-4.9) L 11/06/19 06:40 Total Bilirubin 1.30 mg/dL (0.20-1.00) H 11/06/19 06:40 Direct Bilirubin 1.31 mg/dL (0.00-0.30) H 11/05/19 05:58 AST 60 U/L (15-37) H 11/05/19 05:58 ALT 66 U/L (16-61) H 11/04/19 22:15 Alkaline Phosphatase 148 U/L (45-117) H 11/05/19 05:58 Troponin I 0.144 ng/mL (<0.045) H 11/05/19 08:48 Total Protein 5.3 g/dL (6.4-8.2) L 11/06/19 06:40 Albumin 1.5 g/dL (3.2-5.0) L 11/06/19 06:40 Albumin/Globulin Ratio 0.4 RATIO (0.9-2.4) L 11/06/19 06:40 - Assessment Food / Nutrition-Related History:: Pt continues NPO and with TPN and not using PEG tube for enteral feeding yet. Wt noted up~2.6 Kg since yesterday. K+ low --noted addition of KCl. Pt pulled PICC line out but, reinserted today and plans to continue TPN per SHARLA Garcia until able to use PEG for TF. Per surgery--soft abdomen; gastric contents are still draining into [place] bag through his PEG tube. CT Abd today; oral contrast be placed into the PEG tube [address] scan to ensure that there is no leaking. If there is no leak from the PEG tube, tube feeds may be initiated. Will continue with 2 L 20% dextrose/5% AA @ 84 ml/hr (1760 kcal/100 gm protein) and will add 250 ml of 20% lipid infusion (additional 500 kcal on -) so, total 2260 kcal and 100 gm protein delivered from TPN support. - Nutrition Diagnosis Problem / Etiology / Signs & Symptoms (PES):: Per ASPEN guidelines pt w/ severe malnutrition in the context of acute illness related to inadequate oral intake d/t mental status, dysphagia as evidenced by 9.4% wt loss x ~3 ? weeks, moderate loss of muscle & subcutaneous fat and need for nutrition support. Evidence of Malnutrition Exists:: Yes Severe PCM:: Acute Illness - Nutrition Intervention Nutrition Prescription:: Will continue with 2 L 20% dextrose/5% AA @ 84 ml/hr (1760 kcal/100 gm protein) and will add 250 ml of 20% lipid infusion (additional 500 kcal on -) so, total 2260 kcal and 100 gm protein delivered from TPN support. - Food / Nutrient Delivery Interventions Summary of nutrition intervention:: Continue TPN as previously ordered with a ddition of 250 ml 20% lipids ordered on thursday, thursday, thursday--additional 500 kcal to supplement 2L Clinimix 20%dextrose/5% amino acid). Nutrition support ordered as / adjusted to:: Will continue with 2 L 20% dextrose/5% AA @ 84 ml/hr (1760 kcal/100 gm protein) and will add 250 ml of 20% lipid infusion (additional 500 kcal on -) so, total 2260 kcal and 100 gm protein delivered from TPN support. Consult RD for TF initiation and adjustment when ready to use PEG. Nutrition education provided?: No - MNT Monitoring Further MNT monitoring and evaluation required?: Yes MNT Follow-up in:: 1-2 days - Discussed with SHARLA Garcia--possibly initiate TF support via PEG tomorrow 10/09/2019.
[2019-11-07] MEDS: Morphine 2 MG/ML Syringe 1 MG IV (16:49)
[2019-11-07] MEDS: Fat Emulsions 20% 250 ML IV (17:13)
[2019-11-07 18:45] LABS: Bedside Glucose 129 mg/dL (70-110)
[2019-11-07] MEDS: Ipratropium/Albuterol Sulfate 3 ML AMPUL.NEB INHALATION (21:54)
[2019-11-07] MEDS: Furosemide 100 MG/10 ML Vial 60 MG IV (22:59)
[2019-11-07 23:00] LABS: Blood Gas Specimen Type VEN; O2 Delivery Device NC; SITE RR
[2019-11-07 23:01] LABS: Time Given 2235; VBG PO2 19 mmHg (25-40); VBG pCO2 43.3 mmHg (41-51); VBG pH 7.41 (7.32-7.42)
[2019-11-07 23:07] LABS: VBG BASE EXCESS 3 mmol/L (-1.0-3.5); VBG Bicarbonate 28 mmol/L (22-26); VBG Oxygen Content 29 mmol/L (23-33); VBG SO2 31 % (50-70)
[2019-11-07] MEDS: LORazepam 2 MG/ML Syringe 0.5 MG IV (23:18)
--- NOTE | 2019-11-07 23:19 | CPS ---
critical value venous po2 19 called to Laverne LLOYD in PCU
[2019-11-08] VITALS (39 sets, daily range): BP systolic 107–148; BP diastolic 60–122; PULSE 112–146; RESP 12–38; TEMP 36.7–38.3; O2SAT 90–100; BMI 20.7
--- NOTE | 2019-11-08 | IMM_PTH ---
PATIENT: MIHAI LAURENT II LOC: [facility] U#:[id number] AGE/SX: 69/M ROOM: [facility] RE11/05/[address]: Dr. Kvng Mas MD : [id number] BED: 1 DIS: 11/13/2019 SPEC #: [id number] RECD: 11/10/19 11:36 STATUS: SOUT REQ #: [id number] KAYLENE: 11/08/19 00:[address]: Kvng Mas DEPT: IMMUNOHISTOCHEMISTRY RECD BY: Nicolette Luz ENTERED: 11/10/19 11:37 SP TYPE: IMMUNO OTHR DR: MD Dr. Matthew Fisher DO Dr. Joseph Agyepong, MD Dr. Paul Moodispaw, MD Dr. Robert Leininger, MD Tissues: THORACIC FLUID Procedures: Arun Ret (add) CK20 (add) CK5-6 (add) MACRO (add) P53 (add) TTF1 (add) Vimentin (add) Pankeratin (add) CK7 (initial) PHYSICIAN & [address] [address] SPECIMEN INFORMATION: Tissue Source: Thoracentesis fluid Clinical Info: Pleural effusion Specimen Number: [id number] CPT code: 67676, 38628 x8 METHODOLOGY: Deparaffinized sections of prefer/formalin-fixed tissue or PAP/DQ stained slides are incubated with monoclonal/polyclonal antibodies/oligonucleotide probes. Localization is made via biotin free immunoperoxidase method. Appropriate controls are performed and reacted as expected. Results on target cell population are indicated in the following table: RESULTS: ANTIBODY / CLONE RESULT CK7 (OV-TL12/30) positive CK20 (KS20.8) negative CK5-6 (D5 & 1684) positive AE1-3 (AE1/AE3/PCK26) positive Vimentin (V9) positive CALRET (polyclonal) positive P53 (DO-7) negative TTF-1 (8G7G3/1) negative Macro (HAM-56) positive These tests were developed and their performance characteristics determined by [facility]. They may not have been cleared or approved by the U.S. Food and Drug Administration. The FDA has determined that such clearance or approval is not necessary. The above immunohistochemical/dualISH markers are ordered and reviewed by the Pathologist. INTERPRETATION: Thoracentesis fluid: Negative for malignant cells. Case has been reviewed in consultation with Dr. Harrington who concurs with the above diagnosis. IDC:[email or web address] AM:raymundo 11/11/19
--- NOTE | 2019-11-08 | FLU_PTH ---
PATIENT: MIHAI LAURENT II LOC: [facility] U#:[id number] AGE/SX: 69/M ROOM: [facility] RE11/05/[address]: Dr. Kvng Mas MD : [id number] BED: 1 DIS: 11/13/2019 SPEC #: [id number] RECD: 11/08/19 15:14 STATUS: SABA REQ #: [id number] KAYLENE: 11/08/19 00:[address]: Kvng Mas DEPT: CYTOLOGY RECD BY: Doris Clark ENTERED: 11/09/19 08:52 SP TYPE: Fluid OTHR DR: MD Dr. Matthew Fisher DO Dr. Joseph Agyepong, MD Dr. Paul Moodispaw, MD Dr. Robert Leininger, MD Tissues: THORACIC FLUID Procedures: Special Stain Group II Surgery Specimen Level IV Cytospin Fluid HEADER OPERATION: Ultrasound-guided thoracentesis PRE-OP DIAGNOSIS: Pleural effusion TISSUE SUBMITTED: Thoracentesis fluid for cytology DIAGNOSIS CYTOLOGY Thoracentesis fluid for cytology (cytospin and cell block): Negative for malignant cells. See comment. AM:[email or web address] 11/10/19 COMMENT Immunohistochemistry ([id number]) supports the above diagnosis. Case has been reviewed in consultation with Dr. Harrington who concurs with the above diagnosis. IDC:[facility] CYTOLOGY STUDY Slides are reviewed. CYTOLOGY GROSS Received is 75 ml of yellow cloudy fluid labeled with the patient's name and and designated per the requisition as thoracentesis. Submitted for cytology preparation including cell block. / raymundo 11/09/19 TC:5 CPT: 60417, 44731
[2019-11-08] MEDS: Insulin Lispro 100 UNIT/ML INSULN.PEN SC ×4 (00:53→23:49)
[2019-11-08 01:01] LABS: Bedside Glucose 213 mg/dL (70-110)
--- NOTE | 2019-11-08 05:00 | RAD_ITS ---
HISTORY: INCREASED OXYGEN DEMAND, SEVERE SEPSIS EXAM: XR Chest 1 View COMPARISON: November 04, 2019 FINDINGS: LINES/DEVICES: A stent is present coming off the aortic arch. It was present previously. This is either within the left common carotid artery or the left subclavian artery. Extensive surgical clips within the neck possibly related to carotid endarterectomy and thyroidectomy. Left arm PICC terminates superimposed over the SVC right atrial junction LUNGS: There are severe changes within both lungs. The right lung apex in the right perihilar region are affected to a greater degree than the left lung. The right perihilar disease and right lung disease is more severe than the previous study No pneumothorax. Left pleural effusion is suspected. A smaller right pleural effusion is probable MEDIASTINUM AND CARDIOVASCULAR STRUCTURES: The left ventricle is enlarged. Mediastinal clips are also present. Central airways and mediastinal contour are unremarkable. Athersclerotic plaque within the aortic arch. BONES AND SOFT TISSUES: Thoracic spondylosis. A healing left lateral rib fracture was present previously but is better demonstrated on today's study RAD/Chest 1 View (Portable) IMPRESSION: Worsening bilateral airspace disease especially within the right lung likely representing pneumonia. Kyphoscoliosis with underlying chronic lung disease. at [id number] Reported and signed by: Yovany Workman MD Electronically Signed: Yovany Workman MD at 6:02 EDT Tel , Service support ,
[2019-11-08] MEDS: Metoprolol Tartrate 5 MG/5 ML Vial IV ×2 (05:15→11:21)
[2019-11-08] MEDS: 0.9% Saline Lock 10 ML Syringe IV ×4 (05:16→18:42)
[2019-11-08] MEDS: Cefepime HCl 2 GM in 0.9% NS 100 ML Minibag Q8 IV (05:19)
[2019-11-08 05:30] LABS: Bedside Glucose 158 mg/dL (70-110)
[2019-11-08 05:45] LABS: Absolute Lymphocyte Count 0.66 X10^3/uL (0.83-4.51); Absolute Neutrophil Count 3.9 X10^3/uL (2.0-7.7); Basophil# 0.04 X10^3/uL; Basophil% 0.7 % (0-1); Eosinophil# 0.12 X10^3/uL; Eosinophils% 2.2 % (0-5); Hematocrit 34.9 % (40-54); Hemoglobin 11.4 g/dL (13.0-16.5); Lymphocyte # 0.66 X10^3/ul (4.0); Lymphocyte % 11.9 % (19-41); Mean Corp Hgb Conc 32.7 g/dL (32-36); Mean Corpuscular Hgb 32.6 pg (27.0-32.0); Mean Corpuscular Volume 99.7 fL (80-94); Mean Platelet Vol. 12.9 fl (6.2-12.0); Monocyte# 0.74 X10^3/uL; Monocyte% 13.4 % (0-10); NRBC Flagged by Analyzer 0 % (0-5); Neutrophil # 3.92 X10^3/uL (2.7-7.7); Neutrophil % 70.9 % (47-70); POSITIVE MORPHOLOGY YES; Platelet Count 358 K/mm3 (150-450); RBC Distribution Width CV 14.6 % (11.6-14.6); RBC Distribution Width SD 52.1 fl (35.1-43.9); White Blood Count 5.5 K/mm3 (4.4-11.0)
[2019-11-08 06:01] LABS: ALB/GLOB Ratio 0.4 RATIO (0.9-2.4); AST(SGOT) 39 U/L (15-37); Alanine Aminotransfer ALT/SGPT 37 U/L (16-61); Albumin, Serum 1.6 g/dL (3.2-5.0); Alkaline Phosphatase 130 U/L (45-117); Anion Gap 7 (5-15); BUN 23 mg/dL (7-18); BUN/Creat Ratio 37.4 RATIO (10-20); Calcium,Total 7.9 mg/dL (8.5-10.1); Chloride 106 mmol/L (98-107); Creatinine, Serum 0.62 mg/dL (0.70-1.30); EST Glomerular Filtration Rate 137 mL/min (>60); Est Glom Filt Rate - Afr Amer 166 mL/min (>60); Estimated Creatinine Clearance 55.68 ml/min; Glucose 164 mg/dL (74-106); Potassium 2.9 mmol/L (3.5-5.1); Protein, Total 5.6 g/dL (6.4-8.2); Sodium Level 142 mmol/L (136-145)
[2019-11-08] MEDS: Acetaminophen 650 MG Suppository RECTAL ×2 (06:14→18:18)
[2019-11-08] MEDS: Ipratropium/Albuterol Sulfate 3 ML AMPUL.NEB INHALATION ×2 (06:35→18:50)
[2019-11-08 06:42] LABS: Differential Indicated SCAN CRITERIA MET
--- NOTE | 2019-11-08 08:19 | CT_ITS ---
STUDY: CT ABDOMEN WITHOUT CONTRAST REASON FOR EXAM: Male, 69 years old. FLUID IN ABD RADIATION DOSAGE (If Supplied By Facility): CTDIvol = ( 6.06 ) mGy, DLP = ( 278.58 ) mGycm TECHNIQUE: Transaxial images were obtained without intravenous contrast, and with oral contrast. Sagittal and coronal images were reconstructed. Individualized dose optimization techniques were used for this CT. COMPARISON: Comparison is made with prior examination dated November 07, 2019. FINDINGS: Moderate degree of bilateral pleural effusions with diffuse interstitial fibrosis and honeycombing worse at the left lung base. Cardiomegaly. Coronary artery calcification. Normal liver. Focal extraluminal air is seen along the medial aspect of the left lobe of the liver. This is unchanged. Normal gallbladder and extrahepatic biliary system. Normal spleen. Normal pancreas. Normal bilateral adrenal glands. Normal right kidney. Normal left kidney. A PEG tube is seen along the inferior lateral aspect of the stomach. Contrast is seen within the stomach and proximal small bowel loops. No evidence of a extravasation. Normal small intestine. Normal colon. The appendix is visualized and appears normal. There is diffuse atherosclerotic calcification of the abdominal aorta with elongation and tortuosity. Stable abdominal aortic aneurysm. Normal inferior vena cava. Normal retroperitoneum. CT/Abdomen WITH ORAL Cont Only IMPRESSION: A PEG tube is seen within the inferior portion of the stomach as described. No extravasation of oral contrast. Stable small amount of free extraluminal air adjacent to the medial aspect of the left lobe of the liver. Electronically Signed: Flaco Gale, at 10:28 EDT , Service support ,
--- NOTE | 2019-11-08 08:20 | PN.SURG_ITS ---
Subjective: The patient is not describing any abdominal pain. - Physical Exam Vitals/I&O's: Vital Signs Temp Pulse Resp BP Pulse Ox 99.4 F H 130 H 26 H 124/89 H 92 11/08/19 08:00 11/08/19 08:00 11/08/19 08:00 11/08/19 08:00 11/08/19 08:00 Oxygen Flow Rate (L/min) 10 Oxygen Delivery Method Nasal Cannula Weight: 128 lb 1.417 oz Body Mass Index (BMI) 20.7 Intake and Output for Last 24 Hours 11/06/19 11/07/19 11/08/19 23:59 23:59 23:59 Intake Total 3645.05 / 3645.05 2606.40 / 2606.40 350 / 350 Output Total 425 / 425 875 / 875 Balance 3220.05 / 3220.05 1731.40 / 1731.40 350 / 350 General: Confused Lungs: Short of Breath Cardiovascular: Tachycardic Abdomen: Soft, Non-Distended Microbiology Past 72 Hours 11/04/19 23:25 Blood Culture (Wb) - Right Hand Blood Culture - Preliminary No growth in 48 hours. 11/04/19 22:15 Blood Culture (Wb) - Pic Blood Culture - Preliminary No growth in 48 hours. 11/04/19 22:35 Urine, Catheterized Urine Culture - Final Culture exhibits no growth. Laboratory Results 11/07/19 12:21: POC Glucose 75 11/07/19 18:39: POC Glucose 129 H 11/07/19 22:25: Specimen Type CRISTO, Sample Site RR, VBG pH 7.41, VBG pO2 19 L*, VBG O2 Sat (Calc) 31 L, VBG O2 Content 29, VBG Base Excess 3, POC Mix VBG pCO2 Pt Tmp 43.3, O2 Delivery Device NC, Liter Flow 10.0, Blood Gas Notified Whom DAPHNE BORREGO, Blood Gas Notified Time 223411/08/19 00:50: POC Glucose 213 H 11/08/19 04:46: WBC 5.5, RBC 3.50 L, Hgb 11.4 L, Hct 34.9 L, MCV 99.7 H D, MCH 32.6 H, MCHC 32.7, RDW Std Deviation 52.1 H, RDW Coeff of Xenia 14.6, Plt Count 358, MPV 12.9 H, Immature Gran % (Auto) 0.900, Neut % (Auto) 70.9 H, Lymph % (Auto) 11.9 L, [place] % (Auto) 13.4 H, Eos % (Auto) 2.2, Baso % (Auto) 0.7, Absolute Neuts (auto) 3.9, Absolute Lymphs (auto) 0.66 L, Nucleated RBC % 0 11/08/19 04:46: Sodium 142, Potassium 2.9 L, Chloride 106, Carbon Dioxide 29.0, Anion Gap 7, BUN 23 H, Creatinine 0.62 L, Estim Creat Clear Calc 55.68, Est GFR (MDRD) Af Amer 166, Est GFR (MDRD) Non-Af 137, BUN/Creatinine Ratio 37.4 H, Glucose 164 H, Calcium 7.9 L, Total Bilirubin 0.80, AST 39 H, ALT 37, Alkaline Phosphatase 130 H, Total Protein 5.6 L, Albumin 1.6 L, Globulin 4.0, Albumin/Gl obulin Ratio 0.4 L 11/08/19 05:12: POC Glucose 158 H Current Medications Acetaminophen (Tylenol) 650 mg RECTAL Q4H PRN PRN PRN Reason: Pain Score 1-10/Temp > 100.7 F Last Admin: 11/08/19 06:14 Dose: 650 mg Documented by: Albuterol/Ipratropium (Duoneb) 3 ml INHALATION Q6HWA.RT [facility] Last Admin: 11/08/19 06:35 Dose: 3 ml Documented by: Aspirin (Aspirin) 300 mg RECTAL DAILY [facility] Last Admin: 11/07/19 12:25 Dose: 300 mg Documented by: Calamine/Phenol (Calmoseptine Ointment) 1 applic TOPICAL BID [facility]; Protocol Last Admin: 11/07/19 22:08 Dose: 1 applicatio Documented by: Dextrose (D50w Syringe) 0 gm IV X1 PRN; Protocol PRN Reason: Hypoglycemia Enoxaparin Sodium (Lovenox) 55 mg SC BID [facility] Last Admin: 11/07/19 22:09 Dose: 55 mg Documented by: Glucagon () 1 mg IM .X1 PRN PRN Reason: Hypoglycemia Cefepime HCl 2 gm/ Sodium (Chloride) 100 mls @ 200 mls/hr IV Q8 [facility] Last Infusion: 11/08/19 05:49 Dose: Infused Documented by: Sodium Chloride () 250 mls @ 15 mls/hr IV .[id number] PRN PRN Reason: Saline Flush Sodium Chloride () 250 mls @ 15 mls/hr IV .[id number] PRN PRN Reason: Additional IVPB Infusion Multivitamins 10 ml/ Chromium/Copper/Manganese/Seleni/Zn 1 ml/ Folic Acid 1 mg/ Amino Acids/Electrolytes 2,011 mls @ 84 mls/hr IV .[id number] [facility] Stop: 11/08/19 15:48 Last Admin: 11/07/19 17:13 Dose: 84 mls/hr Documented by: Insulin Human Lispro (Humalog Kwikpen (Bkc)) 0 unit SC Q6 [facility]; Protocol Last Admin: 11/08/19 05:13 Dose: 1 u Documented by: Metoprolol Tartrate (Lopressor (Beta Agnieszka)) 5 mg IV Q6 [facility] Last Admin: 11/08/19 05:15 Dose: 5 mg Documented by: Morphine Sulfate () 1 mg IV Q3H PRN PRN PRN Reason: Abdominal pain 6-04/14 Last Admin: 11/07/19 16:49 Dose: 1 mg Documented by: Ondansetron HCl (Zofran) 4 mg IV Q8H PRN PRN PRN Reason: NAUSEA/VOMITING Sodium Chloride () 10 - 40 ml IV UD PRN PRN Reason: SALINE FLUSH Last Admin: 11/08/19 05:16 Dose: 20 ml Documented by: Medical Necessity - Tobacco Use Smoking Status: Former smoker Assessment/Plan All Active Problems (Last Reviewed 11/05/19 @ 01:[address] Adriano [place] MD) Severe sepsis (Acute) 69-year-old male with hypoxia and tachycardia as well as dysphasia 1. I reviewed the CT scan with Dr. Gale this morning. The PEG tube is in place in the stomach but there is a small fluid collection with air just adjacent to this. He would like to repeat the scan today with oral contrast once more before allowing tube feeds. 2. CT scan of the chest did not reveal any PE but he did have effusions as well as possible pneumonia 3. If CT scan today is read as clear tube feeds can begin. Dylon Willson MD Pager: [facility] [address] [place] [address], [address] [place] [address] Office:
[2019-11-08 08:32] LABS: Differential Comment SCANNED
--- NOTE | 2019-11-08 08:45 | NURSING ---
This RN gave bottle of contrast sent by pharmacy through PEG [facility].
[2019-11-08] MEDS: Menthol/Lanolin/Calamine/Znox 113 GM Tube 1 APPLIC TOPICAL ×2 (09:05→22:31)
[2019-11-08] MEDS: Enoxaparin 60 MG/0.6 ML Syringe 55 MG SC (09:06)
[2019-11-08] MEDS: Potassium Chloride 10mEq/100mL 10 MEQ/100 ML IV.SOLN. 100 MEQ IV BOLUS ×4 (09:49→13:21)
--- NOTE | 2019-11-08 10:13 | PN_ITS ---
Progress Note I discussed the patient's CT scan with Dr. Gale. After two subsequent CT scans with oral contrast there is no extravasation around the PEG tube. The patient's PEG tube is okay to use for tube feeds starting today. Dylon Willson MD Pager: [facility] [address] [place] [address], [address] [place] [address] Office: [facility] Vital Signs/Narrative: Vital Signs Temp Pulse Resp BP Pulse Ox 11/08/19 10:00 98.7 F 133 H 38 H 132/69 H 94 11/08/19 09:00 98.6 F 130 H 22 H 143/76 H 92 11/08/19 08:00 99.4 F H 130 H 26 H 124/89 H 92 11/08/19 07:50 99.6 F H 132 H 28 H 130/80 H 92 11/08/19 06:50 100.2 F H 126 H 24 H 131/75 H 92 11/08/19 06:42 125 H 11/08/19 06:36 138 H 28 H 90
--- NOTE | 2019-11-08 10:15 | US_ITS ---
PROCEDURE: ULTRASOUND GUIDED THORACENTESIS. DATE: PROCEDURE: ULTRASOUND GUIDED THORACENTESIS. DATE: November 08, 2019. INDICATION: Male, 69 years old. Pleural effusions. PHYSICIAN: Flaco Gale M.D. PROCEDURE: The risks, benefits, and alternatives to the procedure were explained to the patient. The specific risks of bleeding, infection, and pneumothorax requiring chest tube insertion were discussed and accepted. Written informed consent was obtained. Ultrasonographic evaluation of the right lower pleural space was carried out. An adequate pocket was identified. The patient was placed in the sitting, upright position. The overlying skin was prepped and draped in sterile fashion. 1% lidocaine was administered subcutaneously for local anesthesia. Under ultrasound guidance, a 5 Icelandic thoracentesis needle/catheter system was advanced into the right posterior lower pleural fluid collection. Approximately 990 mL of imtiaz-colored fluid was drained. The catheter was removed, and a sterile dressing was applied. A specimen was collected and sent to the laboratory for analysis, as requested by the referring clinician. The patient tolerated the procedure well. A chest x-ray was ordered. US/Thoracentesis W US IMPRESSION: Ultrasound-guided right thoracentesis.. Electronically Signed: Flaco Gale, at 15:20 EDT , Service support ,
[2019-11-08 11:20] LABS: M R Staph aureus DNA By PCR Negative (Negative); Probe Check PASS; Specimen Processing Control PASS
[2019-11-08 11:28] LABS: Procalcitonin 0.88 ng/mL (0.00-0.09)
[2019-11-08 11:33] LABS: ALB/GLOB Ratio 0.5 RATIO (0.9-2.4); Globulin 3.3 g/dL (2.2-4.2); LDH 528 U/L (87-241)
--- NOTE | 2019-11-08 12:30 | PCM.PN.HOSP ---
<Jose Rangel - Last Filed: 11/08/19 12:30> Reason for Visit: SOB Subjective: SOB worsened overnight. Temporarily on bipap now on 10 lpm NC. Pt does have a cough and c/o SOB. He denies abd pain. He is still confused tho conversational. No LE edema. Vitals/I&O's: Vital Signs Temp Pulse Resp BP Pulse Ox 98.4 F 113 H 36 H 119/78 95 11/08/19 12:00 11/08/19 12:00 11/08/19 12:00 11/08/19 12:00 11/08/19 12:00 Oxygen Flow Rate (L/min) 10 Oxygen Delivery Method Nasal Cannula Weight: 128 lb 1.417 oz Body Mass Index (BMI) 20.7 Intake and Output for Last 24 Hours 11/06/19 11/07/19 11/08/19 23:59 23:59 23:59 Intake Total 3645.05 / 3645.05 2606.40 / 2606.40 550 / 550 Output Total 425 / 425 875 / 875 Balance 3220.05 / 3220.05 1731.40 / 1731.40 550 / 550 General: Alert, Oriented x3, Cooperative HEENT: Atraumatic, PERRLA, EOMI, Normocephalic Neck: Supple, No JVD, Negative Carotid Bruits Lungs: Clear to auscultation, Diminished Cardiovascular: No murmurs, Tachycardic Abdomen: Bowel Sounds Present, Soft, - - RLQ tanderness Extremities: No edema, Capillary Refill Less than 3 Seconds Skin: No rashes, No breakdown Musculoskeletal: No Tenderness to Palpation of Joints or Extremities Neurological: Cranial nerves II-XII grossly intact Psych/Mental Status: Normal Affect, Appropriate, Alert and oriented to time, place, person, mood and affect Microbiology Past 72 Hours 11/04/19 23:25 Blood Culture (Wb) - Right Hand Blood Culture - Preliminary No growth in 48 hours. 11/04/19 22:15 Blood Culture (Wb) - Pic Blood Culture - Preliminary No growth in 48 hours. 11/04/19 22:35 Urine, Catheterized Urine Culture - Final Culture exhibits no growth. Laboratory Results 11/07/19 12:21: POC Glucose 75 11/07/19 18:39: POC Glucose 129 H 11/07/19 22:25: Specimen Type CRISTO, Sample Site RR, VBG pH 7.41, VBG pO2 19 L*, VBG O2 Sat (Calc) 31 L, VBG O2 Content 29, VBG Base Excess 3, POC Mix VBG pCO2 Pt Tmp 43.3, O2 Delivery Device NC, Liter Flow 10.0, Blood Gas Notified Whom DAPHNE BORREGO, Blood Gas Notified Time 223411/08/19 00:50: POC Glucose 213 H 11/08/19 04:46: WBC 5.5, RBC 3.50 L, Hgb 11.4 L, Hct 34.9 L, MCV 99.7 H D, MCH 32.6 H, MCHC 32.7, RDW Std Deviation 52.1 H, RDW Coeff of Xenia 14.6, Plt Count 358, MPV 12.9 H, Immature Gran % (Auto) 0.900, Neut % (Auto) 70.9 H, Lymph % (Auto) 11.9 L, [place] % (Auto) 13.4 H, Eos % (Auto) 2.2, Baso % (Auto) 0.7, Absolute Neuts (auto) 3.9, Absolute Lymphs (auto) 0.66 L, Nucleated RBC % 0, Differential Comment SCANNED 11/08/19 04:46: Sodium 142, Potassium 2.9 L, Chloride 106, Carbon Dioxide 29.0, Anion Gap 7, BUN 23 H, Creatinine 0.62 L, Estim Creat Clear Calc 55.68, Est GFR (MDRD) Af Amer 166, Est GFR (MDRD) Non-Af 137, BUN/Creatinine Ratio 37.4 H, Glucose 164 H, Calcium 7.9 L, Total Bilirubin 0.80, AST 39 H, ALT 37, Alkaline Phosphatase 130 H, Total Protein 5.6 L, Albumin 1.6 L, Globulin 4.0, Albumin/Globulin Ratio 0.4 L 11/08/19 04:46: B-Natriuretic Peptide 2806.8 H 11/08/19 05:12: POC Glucose 158 H 11/08/19 09:00: MRSA (PCR) Negative 11/08/19 10:46: Procalcitonin 0.88 H 11/08/19 10:46: Lactate Dehydrogenase 528 H, Total Protein 5.0 L, Globulin 3.3, Albumin/Globulin Ratio 0.5 L Current Medications Acetaminophen (Tylenol) 650 mg RECTAL Q4H PRN PRN PRN Reason: Pain Score 1-10/Temp > 100.7 F Last Admin: 11/08/19 06:14 Dose: 650 mg Documented by: Albuterol/Ipratropium (Duoneb) 3 ml INHALATION Q6HWA.RT [facility] Last Admin: 11/08/19 06:35 Dose: 3 ml Documented by: Aspirin (Aspirin) 300 mg RECTAL DAILY [facility] Last Admin: 11/08/19 10:31 Dose: Not Given Documented by: Calamine/Phenol (Calmoseptine Ointment) 1 applic TOPICAL BID [facility]; Protocol Last Admin: 11/08/19 09:05 Dose: 1 applicatio Documented by: Dextrose (D50w Syringe) 0 gm IV X1 PRN; Protocol PRN Reason: Hypoglycemia Furosemide (Lasix) 40 mg IV BID@1000,1800 [place] Glucagon () 1 mg IM .X1 PRN PRN Reason: Hypoglycemia Sodium Chloride () 250 mls @ 15 mls/hr IV .[id number] PRN PRN Reason: Saline Flush Sodium Chloride () 250 mls @ 15 mls/hr IV .[id number] PRN PRN Reason: Additional IVPB Infusion Multivitamins 10 ml/ Chromium/Copper/Manganese/Seleni/Zn 1 ml/ Folic Acid 1 mg/ Amino Acids/Electrolytes 2,011 mls @ 84 mls/hr IV .[id number] [facility] Stop: 11/08/19 15:48 Last Admin: 11/07/19 17:13 Dose: 84 mls/hr Documented by: Potassium Chloride () 10 meq in 100 mls @ 100 mls/hr IV BOLUS Q1H [facility] Stop: 11/08/19 12:59 Last Admin: 11/08/19 12:09 Dose: 100 mls/hr Documented by: Meropenem 1 gm/ Sodium (Chloride) 120 mls @ 33 mls/hr IV Q8 [facility] Insulin Human Lispro (Humalog Kwikpen (Bkc)) 0 unit SC Q6 [facility]; Protocol Last Admin: 11/08/19 11:22 Dose: 1 u Documented by: Metoprolol Tartrate (Lopressor (Beta Agnieszka)) 5 mg IV Q6 [facility] Last Admin: 11/08/19 11:21 Dose: 5 mg Documented by: Morphine Sulfate () 1 mg IV Q3H PRN PRN PRN Reason: Abdominal pain 6-04/14 Last Admin: 11/07/19 16:49 Dose: 1 mg Documented by: Ondansetron HCl (Zofran) 4 mg IV Q8H PRN PRN PRN Reason: NAUSEA/VOMITING Sodium Chloride () 10 - 40 ml IV UD PRN PRN Reason: SALINE FLUSH Last Admin: 11/08/19 11:22 Dose: 10 ml Documented by: STROKE Vital Signs/Narrative: Vital Signs Temp Pulse Resp BP Pulse Ox 11/08/19 12:00 98.4 F 113 H 36 H 119/78 95 11/08/19 11:21 126 H 132/73 H 11/08/19 11:00 98.4 F 126 H 34 H 132/73 H 92 11/08/19 10:59 121 H 11/08/19 10:00 98.7 F 133 H 38 H 132/69 H 94 11/08/19 09:00 98.6 F 130 H 22 H 143/76 H 92 Medical Necessity - Tobacco Use Smoking Status: Former smoker Assessment/Plan All Active Problems (Last Reviewed 11/05/19 @ 01:[address] Adriano Benton MD) Cardiomyopathy (Acute) Pneumothorax on right (Acute) Pneumothorax, right (Acute) Acute on chronic systolic (congestive) heart failure (Acute) Severe sepsis (Acute) 1. Acute hypoxic respiratory failure, acute metabolic encephalopathy 2/2 Severe sepsis 2/2 possible HCAP - Fevers overnight, no leukocytosis. CT abd nonacute, CTA chest with no PE, new infiltrate, pleural effusion. ID and Pulmonary medicine following. Obtain Thoracentesis this afternoon - agreeable. Pt now requiring 10lpm. Some of this is due to CHF. BNP is markedly elevated and there are large pleural effusions. Will continue IV lasix. Possibly likely an aspiration component. -Procalc is elevated -5/2 negative covid19 -poor nutritional status/hypoalbuninemia contributing to pleural effusions. -renal function/co2 intact. -tbili down, AST/Alk phos mild increase -Continue Meropenem per ID -MRSA screen negative. -5/ blood cx negative -Repeat blood cultures drawn. 2. s/p PEG, 2/2 dysphagia - remains NPO. -continue q6h insulin. -staff development educator consult. -TPN to PEG tube feedings when ok with Dr. Willson. -Replace Lytes. 3. elevated trop - rectal aspirin, echo pending. dimer elevated. cta chest without PE. 4. Severe protein calorie malnutrition - staff development educator recommendations for nutritional needs 5. Emphysema, COPD - no acute exacerbation - continue aerosols. defer steroids. DVT ppx: lovenox DC planning: prognosis is poor. I spoke to the on the phone regarding his deterioration, she wants everything done up to the point of intubation/ventilation which she clearly expresses that she and the patient do not want. This patient was seen by Jose Rangel PA-C under the supervision of Dr. Mas. <Kvng Mas - Last Filed: 11/08/19 17:52> Reason for Visit: Shortness of breath, bilateral pleural effusion, CHF exacerbation. Fever Objective: Patient had fever 101 Fahrenheit, 100.2 Fahrenheit. Associated with tachycardia, tachypnea and oxygen requirement went up CT chest shows bilateral pleural effusion. Repeat CT abdomen was done for the concern of PEG tube and bowel leak. Vitals/I&O's: Vital Signs Temp Pulse Resp BP Pulse Ox 98.0 F 141 H 30 H 143/79 H 93 11/08/19 16:59 11/08/19 16:59 11/08/19 16:59 11/08/19 16:59 11/08/19 16:59 Oxygen Flow Rate (L/min) [3] 12 Oxygen Flow Rate (L/min) [2] 12 Oxygen Flow Rate (L/min) [1 ( 12 Initial Baseline)] Oxygen Flow Rate (L/min) 15 Oxygen Delivery Method [3] Nasal Cannula Oxygen Delivery Method [2] Nasal Cannula Oxygen Delivery Method [1 ( Nasal Cannula Initial Baseline)] Oxygen Delivery Method Nasal Cannula Weight: 128 lb 1.417 oz Body Mass Index (BMI) 20.7 Intake and Output for Last 24 Hours 11/06/19 11/07/19 11/08/19 23:59 23:59 23:59 Intake Total 3645.05 / 3645.05 2606.40 / 2606.40 2642.8 / 2642.8 Output Total 425 / 425 875 / 875 990 / 990 Balance 3220.05 / 3220.05 1731.40 / 1731.40 1652.8 / 1652.8 General: Confused, Disoriented, Lethargic HEENT: Atraumatic, PERRLA, EOMI, Normocephalic Neck: Supple Lungs: Diminished - Air entry severely diminished. Patient had thoracocentesis and then pneumothorax. Pigtail catheter was inserted by surgeon., Rhonchi, Short of Breath, Tachypneic, Using Accessory Muscles Cardiovascular: Normal S1, Normal S2, No murmurs, Tachycardic Abdomen: Bowel Sounds Present, Soft, Non Tender, Non-Distended, - Extremities: No edema, Capillary Refill Less than 3 Seconds Skin: No rashes Musculoskeletal: No Tenderness to Palpation of Joints or Extremities, Arthritic Changes Neurological: - - Drowsy and lethargic. Microbiology Past 72 Hours 11/08/19 15:14 Fluid - Thoracentesis Fluid Gram Stain - Final 11/04/19 23:25 Blood Culture (Wb) - Right Hand Blood Culture - Preliminary No growth in 48 hours. 11/04/19 22:15 Blood Culture (Wb) - Pic Blood Culture - Preliminary No growth in 48 hours. 11/04/19 22:35 Urine, Catheterized Urine Culture - Final Culture exhibits no growth. Laboratory Results 11/07/19 18:39: POC Glucose 129 H 11/07/19 22:25: Specimen Type CRISTO, Sample Site RR, VBG pH 7.41, VBG pO2 19 L*, VBG O2 Sat (Calc) 31 L, VBG O2 Content 29, VBG Base Excess 3, POC Mix VBG pCO2 Pt Tmp 43.3, O2 Delivery Device NC, Liter Flow 10.0, Blood Gas Notified Whom [facility] , Blood Gas Notified Time 223411/08/19 00:50: POC Glucose 213 H 11/08/19 04:46: WBC 5.5, RBC 3.50 L, Hgb 11.4 L, Hct 34.9 L, MCV 99.7 H D, MCH 32.6 H, MCHC 32.7, RDW Std Deviation 52.1 H, RDW Coeff of [place] 14.6, Plt Count 358, MPV 12.9 H, Immature Gran % (Auto) 0.900, Neut % (Auto) 70.9 H, Lymph % (Auto) 11.9 L, [place] % (Auto) 13.4 H, Eos % (Auto) 2.2, Baso % (Auto) 0.7, Absolute Neuts (auto) 3.9, Absolute Lymphs (auto) 0.66 L, Nucleated RBC % 0, Differential Comment SCANNED 11/08/19 04:46: Sodium 142, Potassium 2.9 L, Chloride 106, Carbon Dioxide 29.0, Anion Gap 7, BUN 23 H, Creatinine 0.62 L, Estim Creat Clear Calc 55.68, Est GFR (MDRD) Af Amer 166, Est GFR (MDRD) Non-Af 137, BUN/Creatinine Ratio 37.4 H, Glucose 164 H, Calcium 7.9 L, Total Bilirubin 0.80, AST 39 H, ALT 37, Alkaline Phosphatase 130 H, Total Protein 5.6 L, Albumin 1.6 L, Globulin 4.0, Albumin/Globulin Ratio 0.4 L 11/08/19 04:46: B-Natriuretic Peptide 2806.8 H 11/08/19 05:12: POC Glucose 158 H 11/08/19 09:00: MRSA (PCR) Negative 11/08/19 10:46: Procalcitonin 0.88 H 11/08/19 10:46: Lactate Dehydrogenase 528 H, Total Protein 5.0 L, Globulin 3.3, Albumin/Globulin Ratio 0.5 L 11/08/19 15:14: Fluid Glucose 183 H, Fluid Total Protein 0.9, Fluid LDH 194 11/08/19 15:14: Fluid pH Pending 11/08/19 15:14: Miscellaneous Cytology Pending 11/08/19 15:14: Fluid Source THORACENTESIS, Fluid Color YELLOW, Fluid Appearance CLEAR, Fluid WBC 0.207, Fluid RBC 88, Fluid Tot Cell Count 0.227, Fld Polynuclear WBCs # 0.128, Fld Polynuclear WBCs % 61.8, Fluid Mononuclear WBCs 0.079, Fld Mononuclear WBCs % 38.2, Fluid Neutrophils 67, Fluid Lymphocytes 18, Fluid Monocytes 3, Fld Mesothelial Cells 12, Fl Pathologist Comment May follow, Fluid Comment 2 SEE COMMENT 11/08/19 17:08: POC Glucose 117 H Current Medications Acetaminophen (Tylenol) 650 mg RECTAL Q4H PRN PRN PRN Reason: Pain Score 1-10/Temp > 100.7 F Last Admin: 11/08/19 06:14 Dose: 650 mg Documented by: Albuterol/Ipratropium (Duoneb) 3 ml INHALATION Q6HWA.RT [facility] Last Admin: 11/08/19 06:35 Dose: 3 ml Documented by: Aspirin (Aspirin) 300 mg RECTAL DAILY [facility] Last Admin: 11/08/19 10:31 Dose: Not Given Documented by: Calamine/Phenol (Calmoseptine Ointment) 1 applic TOPICAL BID [facility]; Protocol Last Admin: 11/08/19 09:05 Dose: 1 applicatio Documented by: Carvedilol (Coreg) 3.125 mg PO BID [facility] Dextrose (D50w Syringe) 0 gm IV X1 PRN; Protocol PRN Reason: Hypoglycemia Furosemide (Lasix) 40 mg IV BID@1000,1800 [facility] Last Admin: 11/08/19 17:14 Dose: 40 mg Documented by: Glucagon () 1 mg IM .X1 PRN PRN Reason: Hypoglycemia Hydralazine HCl (Apresoline) 10 mg PO TID [facility] Sodium Chloride () 250 mls @ 15 mls/hr IV .[id number] PRN PRN Reason: Saline Flush Sodium Chloride () 250 mls @ 15 mls/hr IV .[id number] PRN PRN Reason: Additional IVPB Infusion Meropenem 1 gm/ Sodium (Chloride) 120 mls @ 33 mls/hr IV Q8 [facility] Last Admin: 11/08/19 15:22 Dose: 33 mls/hr Documented by: Multivitamins 10 ml/ Chromium/Copper/Manganese/Seleni/Zn 1 ml/ Folic Acid 1 mg/ Amino Acids/Electrolytes 2,011 mls @ 84 mls/hr IV .[id number] [facility] Stop: 11/09/19 15:48 Last Admin: 11/08/19 15:25 Dose: 84 mls/hr Documented by: Enteral Nutritional Formula (Vital Af 1.2 Arun Liquid) 1,000 mls @ 15 mls/hr GT .Q48H [facility] Last Admin: 11/08/19 17:25 Dose: 15 mls/hr Documented by: Insulin Human Lispro (Humalog Kwikpen (Bkc)) 0 unit SC Q6 [facility]; Protocol Last Admin: 11/08/19 17:11 Dose: Not Given Documented by: Isosorbide Dinitrate (Isordil) 10 mg PO TID [facility] Morphine Sulfate () 1 mg IV Q3H PRN PRN PRN Reason: Abdominal pain 6-04/14 Last Admin: 11/07/19 16:49 Dose: 1 mg Documented by: Ondansetron HCl (Zofran) 4 mg IV Q8H PRN PRN PRN Reason: NAUSEA/VOMITING Sodium Chloride () 10 - 40 ml IV UD PRN PRN Reason: SALINE FLUSH Last Admin: 11/08/19 15:22 Dose: 10 ml Documented by: STROKE Vital Signs/Narrative: Vital Signs Temp Temp Pulse Pulse Pulse Pulse Resp 11/08/19 16:59 98.0 F 141 H 30 H 11/08/19 16:29 98.0 F 138 H 35 H 11/08/19 16:00 98.5 F 136 H 22 H 11/08/19 15:02 135 H 11/08/19 15:00 98.6 F 135 H 34 H 11/08/19 14:32 98.3 F 136 H 135 H 139 H 11/08/19 14:00 98.5 F 132 H 30 H Resp Resp Resp BP BP BP BP 11/08/19 16:59 143/79 H 11/08/19 16:29 143/79 H 11/08/19 16:00 140/77 H 11/08/19 15:02 11/08/19 15:00 120/84 H 11/08/19 14:32 30 H 30 H 32 H 133/72 H 123/63 H 122/65 H 11/08/19 14:00 142/73 H Pulse Ox 11/08/19 16:59 93 11/08/19 16:29 94 11/08/19 16:00 93 11/08/19 15:02 11/08/19 15:00 93 11/08/19 14:32 11/08/19 14:00 93 Assessment/Plan This patient was seen in conjunction with Jose MAGDALENO. I have independently interviewed and examined the patient and reviewed pertinent history, examination findings, laboratory and plan of management. I have reviewed the note and agree with the documented findings with the few additional points. In brief, patient is admitted for acute metabolic encephalopathy probably secondary to intra-abdominal infection: Patient had free air under diaphragm on prior imaging but repeat CT abdomen did not show it. Subsequently patient had PEG tube on last Thursday and then had tachycardia. Repeat CT with oral contrast was done which reported stable but no PEG tube seen. CT chest did not show PE but bilateral pleural effusion, right more than left with underlying infiltrate and atelectasis. Chronic fibrosis and cystic and bullous appearance of emphysematous disease. New infiltrate on right upper lobe. On IV cefepime. Vancomycin and Flagyl discontinued as patient did not had fever for last 3 days, blood cultures negative for more than 48 hours and urine culture negative. 11/07: Patient oxygen requirement went up. Continue to be tachycardic and tachypneic and short of breath. CT abdomen was repeated. Repeat CT shows no extravasation of oral contrast small stable amount of free extraluminal air adjacent to medial aspect of left lobe of the liver. PEG tube in inferior portion of the stomach. Patient had right-sided ultrasound-guided thoracocentesis and about 1000 mL of imtiaz-colored fluid removed. The fluid was sent for thoracocentesis. Lites criteria suggestive of transudate. Subsequently patient was very short of breath and chest x-ray showed pneumothorax. Pigtail catheter placed. Repeat serial chest x-ray were done. Patient still has air leak but shows improvement of right apical pneumothorax. Tiny residual right apical pneumothorax. Surgeon talked to patient's and I was there. He agreed for compassionate visit of his prognosis is poor. Patient is DNR CC arrest with no intubation On Thursday and ID consult appreciated. Antibiotic changed to meropenem. IV cefepime discontinued I have discussed my assessment with Jose MAGDALENO and orders have been reviewed. Clinical Impression(s) from Imaging Studies Abdomen/Pelvis CT 11/04/19 22:27 IMPRESSION: 1. A new left mid abdominal PEG tube is present in the proximal one third aspect of the stomach. 2. A small amount of extraluminal air and tiny amounts of fluid are present in the left anterior intra-abdominal region directly adjacent to the portion of the stomach containing the PEG tube most likely related to recent placement procedure. 3. Test injection of the PEG tube with contrast in consultation with the service that placed the feeding tube can be performed to evaluate for possible extraluminal leakage. 4. Previously seen moderate bilateral pleural effusions are decreased in volume with a tiny amount seen on the right and a small amount remaining on the left. Electronically Signed: Ricky Das MD at 23:54 EDT , Service support , Chest X-Ray 11/04/19 23:00 IMPRESSION: 1. Chronic appearing scattered and consolidative fibrosis of both lungs, most prominent in the right upper lobe. 2. Cystic emphysematous changes Electronically Signed: Ricky Das MD at 23:33 EDT , Service support , Chest CTA 11/07/19 08:32 IMPRESSION: Moderate degree of bilateral pleural effusions with infiltration of the lung bases and new infiltrate in the right upper lobe superimposed on chronic emphysematous changes and bullous formation as well as pulmonary fibrosis. Electronically Signed: Flaco Gale, at 12:25 EDT , Service support , Abdomen CT 11/07/19 08:33 IMPRESSION: Stable examination. The PEG tube is not seen at this time. Electronically Signed: Flaco Gale, at 12:29 EDT , Service support , Chest X-Ray 11/08/19 05:00 IMPRESSION: Worsening bilateral airspace disease especially within the right lung likely representing pneumonia. Kyphoscoliosis with underlying chronic lung disease. at 0603 Reported and signed by: Yovany Workman MD Electronically Signed: Yovany Workman MD at 6:02 EDT Tel , Service support , Abdomen CT 11/08/19 08:19 IMPRESSION: A PEG tube is seen within the inferior portion of the stomach as described. No extravasation of oral contrast. Stable small amount of free extraluminal air adjacent to the medial aspect of the left lobe of the liver. Electronically Signed: Flaco Gale at 10:28 EDT , Service support , Thoracentesis Ultrasound 11/08/19 10:15 IMPRESSION: Ultrasound-guided right thoracentesis.. Electronically Signed: Flaco Gale at 15:20 EDT , Service support , Chest X-Ray 11/08/19 14:52 IMPRESSION: Status post right thoracentesis with a 10% right pneumothorax. Electronically Signed: Flaco Gale at 15:08 EDT , Service support , Chest X-Ray 11/08/19 17:01 IMPRESSION: Tiny residual right apical pneumothorax with interval improvement status post chest tube placement. Findings otherwise unchanged since previous study Electronically Signed: Jaciel Rodriguez MD at 17:26 EDT , Service support , Inpatient E&M: [id number] [facility] L3
--- NOTE | 2019-11-08 12:50 | PCM.NTREPORT ---
Nutrition Therapy Report - History Nutrition Services has been consulted to:: Manage parenteral nutrition, Manage enteral nutrition Current diet / nutrition support order:: NPO; 2L 5%AA/20% dextrose solution w/ electrolytes. 250 ml 20% lipids. - Anthropometric Measurements Height:: 5 ft 6 in Weight:: 58.1 kg Body Mass Index (BMI):: 20.7 - Relevant Labs Relevant Labs:: RBC 3.50 M/mm3 (4.6-6.2) L 11/08/19 04:46 Hgb 11.4 g/dL (13.0-16.5) L 11/08/19 04:46 Hct 34.9 % (40-54) L 11/08/19 04:46 MCV 99.7 fL (80-94) H D 11/08/19 04:46 MCH 32.6 pg (27.0-32.0) H 11/08/19 04:46 RDW Std Deviation 52.1 fl (35.1-43.9) H 11/08/19 04:46 Plt Count 106 K/mm3 (150-450) L 11/06/19 06:40 MPV 12.9 fl (6.2-12.0) H 11/08/19 04:46 Neut % (Auto) 70.9 % (47-70) H 11/08/19 04:46 Lymph % (Auto) 11.9 % (19-41) L 11/08/19 04:46 Saline % (Auto) 13.4 % (0-10) H 11/08/19 04:46 Eos % (Auto) 7.5 % (0-5) H 11/06/19 06:40 Absolute Lymphs (auto) 0.66 X10^3/uL (0.83-4.51) L 11/08/19 04:46 PT 17.2 SECONDS (11.7-14.9) H 11/06/19 13:30 APTT 42.6 Seconds (24.1-36.2) H 11/06/19 19:48 D-Dimer Quant (PE/DVT) > 20.00 FEU/ug/m (0.27-0.49) H* 11/06/19 09:04 Sodium 134 mmol/L (136-145) L 11/05/19 03:00 Potassium 2.9 mmol/L (3.5-5.1) L 11/08/19 04:46 Chloride 108 mmol/L (98-107) H 11/07/19 04:38 Carbon Dioxide 19.0 mmol/L (21.0-32.0) L 11/05/19 03:00 Anion Gap 4 (5-15) L 11/06/19 06:40 BUN 23 mg/dL (7-18) H 11/08/19 04:46 Creatinine 0.62 mg/dL (0.70-1.30) L 11/08/19 04:46 BUN/Creatinine Ratio 37.4 RATIO (10-20) H 11/08/19 04:46 Glucose 164 mg/dL (74-106) H 11/08/19 04:46 Lactic Acid 2.1 mmol/L (0.4-1.9) H* 11/05/19 07:00 Calcium 7.9 mg/dL (8.5-10.1) L 11/08/19 04:46 Phosphorus 2.3 mg/dL (2.5-4.9) L 11/06/19 06:40 Total Bilirubin 1.30 mg/dL (0.20-1.00) H 11/06/19 06:40 Direct Bilirubin 1.31 mg/dL (0.00-0.30) H 11/05/19 05:58 AST 39 U/L (15-37) H 11/08/19 04:46 ALT 66 U/L (16-61) H 11/04/19 22:15 Alkaline Phosphatase 130 U/L (45-117) H 11/08/19 04:46 Lactate Dehydrogenase 528 U/L (87-241) H 11/08/19 10:46 Troponin I 0.144 ng/mL (<0.045) H 11/05/19 08:48 B-Natriuretic Peptide 2806.8 pg/mL (0-100) H 11/08/19 04:46 Total Protein 5.0 g/dL (6.4-8.2) L 11/08/19 10:46 Albumin 1.6 g/dL (3.2-5.0) L 11/08/19 04:46 Albumin/Globulin Ratio 0.5 RATIO (0.9-2.4) L 11/08/19 10:46 Procalcitonin 0.88 ng/mL (0.00-0.09) H 11/08/19 10:46 - Assessment Food / Nutrition-Related History:: Per Dr. Franco pt underwent two subsequent CT scans with oral contrast re: there is no extravasation around the PEG tube; the patient's PEG tube is okay to use for tube feeds starting today. TPN /4: 2L 5%AA/20% dextrose solution w/ electrolytes to provide 1760 calories, 100 g protein and 250 ml 20% lipids (additional 500 kcal -W-). K+ low--noted addition of KCl. Wt decrease of 0.2 kg since previous review. - Nutrition Diagnosis Problem / Etiology / Signs & Symptoms (PES):: Per ASPEN guidelines pt w/ severe malnutrition in the context of acute illness related to inadequate oral intake d/t mental status, dysphagia as evidenced by 9.4% wt loss x ~3 ? weeks, moderate loss of muscle & subcutaneous fat and need for nutrition support. Evidence of Malnutrition Exists:: Yes Severe PCM:: Chronic Illness - Nutrition Intervention Nutrition Prescription:: [id number] calories, 60-70 g protein - Food / Nutrient Delivery Interventions Summary of nutrition intervention:: Will continue TPN at 2L 5% AA/20% dextrose- no insulin and no famotidine to be added. TF approved for initiation today. Will provide Vital AF 1.2 via PEG at 15 ml/hr goal rate w/ 20 ml H2O flush q 4. TPN and TF to meet 100% of pt nutritional needs. Nutrition support ordered as / adjusted to:: 2L 5% AA/20% dextrose. Vital AF 1.2 via PEG at 15 ml/hr goal rate w/ 20 ml H2O flush q 4. Nutrition education provided?: No - MNT Monitoring Further MNT monitoring and evaluation required?: Yes MNT Follow-up in:: 1-2 days
--- NOTE | 2019-11-08 13:10 | PCM.CONS.PUL ---
Reason for Consult Date of Consultation: 11/08/19 Reason for Consultation: Respiratory failure History of Present Illness: The patient is a 69-year-old male, with a history as outlined below, who presented to the emergency department from the TCU on November 03 with abdominal pain and fever. The patient had just been admitted to the hospital last month with acute respiratory failure felt to be secondary to COPD with exacerbation precipitated by bilateral lower lobe pneumonia. His hospital course was complicated by the development of encephalopathy and decompensated heart failure, which was treated with IV diuretic therapy. When the patient was discharged from the hospital to the TCU, he was maintained on TPN for nutritional support. Therefore, on November 03, the patient underwent EGD and PEG tube placement. On presentation to the emergency department, the patient was noted to be febrile, tachycardic and tachypneic. Laboratory evaluation revealed no evidence of a leukocytosis. Coagulation profile was within normal limits. Chemistry profile was unremarkable. Initial lactate was elevated to 2.1. Troponin was elevated to 0.085. Repeat COVID testing sent on November 04 was negative. CTA chest completed on November 06 revealed no evidence for pulmonary embolism. However, there was note of bilateral pleural effusions superimposed on chronic emphysematous changes. The patient has known heart failure and is currently overall net +8.7 L for the hospital admission. I was asked to evaluate the patient after his respiratory status continued to decline. There are tentative plans for the patient to undergo ultrasound-guided thoracentesis this afternoon. Past Medical History Past Medical History (Chronic Problems): Chronic Problems Debility (Chronic) Abdominal aortic aneurysm (Chronic) COPD (chronic obstructive pulmonary disease) (Chronic) PAOD (peripheral arterial occlusive disease) (Chronic) Diabetes mellitus (Chronic) Alcohol abuse (Chronic) Acne rosacea (Chronic) Cervical spinal stenosis (Chronic) Thrombocytopenia (Chronic) CAD (coronary artery disease) (Chronic) PAD (peripheral artery disease) (Chronic) HTN (hypertension) (Chronic) HLD (hyperlipidemia) (Chronic) Diabetes mellitus, type II (Chronic) Heavy alcohol consumption (Chronic) Former tobacco use (Chronic) Medical History: Medical History (Last Reviewed 11/05/19 @ 01:[address] 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 SOB (shortness of breath) R06.02 HTN (hypertension) I10 Allergies [facility] Inhibitors Allergy (Verified 11/04/19 22:19) Unknown Penicillins Allergy (Verified 11/04/19 22:19) Unknown Home Medications: Ambulatory Orders Medication Instructions Recorded metoprolol tartrate 50 mg tablet 1.5 tab PO BID 30 Days #90 07/20/17 ranolazine 1,000 mg 1 tab PO DAILY 30 Days #60 07/20/17 tablet,extended release,12 hr Cholecalciferol (Vitamin D3) 2,000 unit PO DAILY 10/14/19 [Vitamin D3] Fexofenadine HCl 180 mg PO DAILY 10/14/19 Iron Carbonyl [Feosol] 45 mg PO DAILYCM 10/14/19 Rosuvastatin Calcium 5 mg PO DAILY 10/14/19 Acetaminophen [Tylenol Tablet] 650 mg PO Q6H PRN PRN tab 10/28/19 Albuterol Aerosols [Ventolin 2.5 mg INHALATION Q2H PRN PRN 10/28/19 Aerosols] vial.neb. Glucagon 1 mg IM .X1 PRN syringe 10/28/19 Guaifenesin [Robitussin] 10 ml PO Q4H PRN PRN udc 10/28/19 Insulin Lispro [Humalog KwikPen] See Protocol SUBCUT Q6 10/28/19 Ipratropium/Albuterol Sulfate 3 ml INHALATION Q4HWA.RT 10/28/19 [Duoneb] Labetalol [Trandate] 10 mg IV Q4H 10/28/19 Menthol/Lanolin/Calamine/Znox 1 applic TOPICAL BID 10/28/19 [Calmoseptine Ointment] Nitroglycerin (INPATIENT USE) 0.4 mg SUBLINGUAL Q5M PRN tab.subl 10/28/19 [Nitrostat] Senna/Docusate Sodium [Senokot-S] 2 tab PO BID PRN PRN tab 10/28/19 levoFLOXacin IV [Levaquin 750mg 750 mg IV Q24 10/28/19 IVPB] metroNIDAZOLE [Flagyl IVPB] 500 mg IV Q8 10/28/19 Surgical History: Surgical History (Last Reviewed 11/05/19 @ 01:[address] 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 Psychiatric History: Anxiety, Depression Smoking Status: Former smoker - *Family History Maternal History Items: Heart Disease, Hypertension Paternal History Items: Heart Disease, Hypertension Review of Systems Constitutional: Reports: Fever, Weakness, Fatigue Eyes: Denies: Blurred vision, Double vision HEENT: Denies: Head Aches, Sinus Congestion, Sinus Drainage Cardiovascular: Denies: Chest Pain, Palpitations Respiratory: Reports: Cough, Shortness of Breath. Denies: Sputum production Gastrointestinal: Reports: Abdominal Pain Genitourinary: Denies: Dysuria Musculoskeletal: Denies: Joint Pain, Joint Tenderness Skin: Denies: Rash, Wounds Neurological: Reports: Confusion Psychiatric: Denies: Anxiety, Depression, Homicidal Ideations, Suicidal Ideations Hematologic/ Lymphatic: Reports: Anemia Patient Problems: Active and Suspected Problems (Last Reviewed 11/05/19 @ 01:[address] Adriano Benton MD) Cardiomyopathy (Acute) Pneumothorax on right (Acute) Pneumothorax, right (Acute) Objective: The patient's most recent lab work, culture data and imaging studies have all been personally reviewed. Blood and urine cultures have shown no growth to date. - Physical Exam Vitals/I&O's: Vital Signs Temp Pulse Resp BP Pulse Ox 98.4 F 113 H 36 H 119/78 95 11/08/19 12:00 11/08/19 12:00 11/08/19 12:00 11/08/19 12:00 11/08/19 12:00 Oxygen Flow Rate (L/min) 10 Oxygen Delivery Method Nasal Cannula Weight: 128 lb 1.417 oz Body Mass Index (BMI) 20.7 Intake and Output for Last 24 Hours 11/06/19 11/07/19 11/08/19 23:59 23:59 23:59 Intake Total 3645.05 / 3645.05 2606.40 / 2606.40 550 / 550 Output Total 425 / 425 875 / 875 Balance 3220.05 / 3220.05 1731.40 / 1731.40 550 / 550 General: Alert, - - Quite ill in appearance. The patient has difficulty maintaining focus. HEENT: Atraumatic, Normocephalic Oral: Dry Mucosa Neck: Supple, No Nodes, Trachea Midline Lungs: Diminished, Periods of apnea, Tachypneic Cardiovascular: Normal S1, Normal S2, No murmurs, Tachycardic Abdomen: Bowel Sounds Present, Soft, - - + PEG tube Extremities: No clubbing, No cyanosis, No edema Skin: No breakdown Musculoskeletal: Cachexia, Muscle Wasting Lymphatic: No Cervical, Supraclavicular, or Inguinal Adenopathy Neurological: - - No focal neurological deficits. Psych/Mental Status: Flat Affect Labs (Last 48 Hours) 11/06/19 11/06/19 11/06/19 13:30 14:20 17:53 WBC RBC Hgb Hct MCV MCH MCHC RDW Std Deviation RDW Coeff of [place] Plt Count MPV Immature Gran % (Auto) Neut % (Auto) Lymph % (Auto) [place] % (Auto) Eos % (Auto) Baso % (Auto) Absolute Neuts (auto) Absolute Lymphs (auto) Nucleated RBC % Differential Comment Atypical Lymphocytes PT 17.2 H INR 1.5 APTT 34.4 Specimen Type Sample Site VBG pH VBG pO2 VBG O2 Sat (Calc) VBG O2 Content VBG Base Excess POC Mix VBG pCO2 Pt Tmp O2 Delivery Device Liter Flow Blood Gas Notified Whom Blood Gas Notified Time Sodium Potassium Chloride Carbon Dioxide Anion Gap BUN Creatinine Estim Creat Clear Calc Est GFR (MDRD) Af Amer Est GFR (MDRD) Non-Af BUN/Creatinine Ratio Glucose Calcium Total Bilirubin AST ALT Alkaline Phosphatase Lactate Dehydrogenase B-Natriuretic Peptide Total Protein Albumin Globulin Albumin/Globulin Ratio Procalcitonin Vancomycin Trough 6.2 MRSA (PCR) POC Glucose 114 H 11/06/19 11/07/19 11/07/19 19:48 00:07 04:38 WBC 4.7 RBC 3.61 L Hgb 11.3 L Hct 33.8 L MCV 93.6 D MCH 31.3 MCHC 33.4 RDW Std Deviation 46.7 H RDW Coeff of X[place] 13.6 Plt Count 158 MPV 13.0 H Immature Gran % (Auto) 0.400 Neut % (Auto) 75.4 H Lymph % (Auto) 9.9 L [place] % (Auto) 9.7 Eos % (Auto) 4.4 Baso % (Auto) 0.2 Absolute Neuts (auto) 3.6 Absolute Lymphs (auto) 0.47 L Nucleated RBC % 0 Differential Comment SCANNED Atypical Lymphocytes RARE PT INR APTT 42.6 H Specimen Type Sample Site VBG pH VBG pO2 VBG O2 Sat (Calc) VBG O2 Content VBG Base Excess POC Mix VBG pCO2 Pt Tmp O2 Delivery Device Liter Flow Blood Gas Notified Whom Blood Gas Notified Time Sodium Potassium Chloride Carbon Dioxide Anion Gap BUN Creatinine Estim Creat Clear Calc Est GFR (MDRD) Af Amer Est GFR (MDRD) Non-Af BUN/Creatinine Ratio Glucose Calcium Total Bilirubin AST ALT Alkaline Phosphatase Lactate Dehydrogenase B-Natriuretic Peptide Total Protein Albumin Globulin Albumin/Globulin Ratio Procalcitonin Vancomycin Trough MRSA (PCR) POC Glucose 154 H 11/07/19 11/07/19 11/07/19 04:38 04:54 12:21 WBC RBC Hgb Hct MCV MCH MCHC RDW Std Deviation RDW Coeff of [place] Plt Count MPV Immature Gran % (Auto) Neut % (Auto) Lymph % (Auto) [place] % (Auto) Eos % (Auto) Baso % (Auto) Absolute Neuts (auto) Absolute Lymphs (auto) Nucleated RBC % Differential Comment Atypical Lymphocytes PT INR APTT Specimen Type Sample Site VBG pH VBG pO2 VBG O2 Sat (Calc) VBG O2 Content VBG Base Excess POC Mix VBG pCO2 Pt Tmp O2 Delivery Device Liter Flow Blood Gas Notified Whom Blood Gas Notified Time Sodium 140 Potassium 3.0 L Chloride 108 H Carbon Dioxide 26.0 Anion Gap 6 BUN 22 H Creatinine 0.36 L Estim Creat Clear Calc 53.38 Est GFR (MDRD) Af Amer 310 Est GFR (MDRD) Non-Af 256 BUN/Creatinine Ratio 61.5 H Glucose 82 Calcium 8.1 L Total Bilirubin AST ALT Alkaline Phosphatase Lactate Dehydrogenase B-Natriuretic Peptide Total Protein Albumin Globulin Albumin/Globulin Ratio Procalcitonin Vancomycin Trough MRSA (PCR) POC Glucose 86 75 11/07/19 11/07/19 11/08/19 18:39 22:25 00:50 WBC RBC Hgb Hct MCV MCH MCHC RDW Std Deviation RDW Coeff of [place] Plt Count MPV Immature Gran % (Auto) Neut % (Auto) Lymph % (Auto) [place] % (Auto) Eos % (Auto) Baso % (Auto) Absolute Neuts (auto) Absolute Lymphs (auto) Nucleated RBC % Differential Comment Atypical Lymphocytes PT INR APTT Specimen Type CRISTO Sample Site RR VBG pH 7.41 VBG pO2 19 L* VBG O2 Sat (Calc) 31 L VBG O2 Content 29 VBG Base Excess 3 POC Mix VBG pCO2 Pt Tmp 43.3 O2 Delivery Device NC Liter Flow 10.0 Blood Gas Notified Whom [facility] MD Blood Gas Notified Time 2235 Sodium Potassium Chloride Carbon Dioxide Anion Gap BUN Creatinine Estim Creat Clear Calc Est GFR (MDRD) Af Amer Est GFR (MDRD) Non-Af BUN/Creatinine Ratio Glucose Calcium Total Bilirubin AST ALT Alkaline Phosphatase Lactate Dehydrogenase B-Natriuretic Peptide Total Protein Albumin Globulin Albumin/Globulin Ratio Procalcitonin Vancomycin Trough MRSA (PCR) POC Glucose 129 H 213 H 11/08/19 11/08/19 11/08/19 04:46 04:46 04:46 WBC 5.5 RBC 3.50 L Hgb 11.4 L Hct 34.9 L MCV 99.7 H D MCH 32.6 H MCHC 32.7 RDW Std Deviation 52.1 H RDW Coeff of X[place] 14.6 Plt Count 358 MPV 12.9 H Immature Gran % (Auto) 0.900 Neut % (Auto) 70.9 H Lymph % (Auto) 11.9 L [place] % (Auto) 13.4 H Eos % (Auto) 2.2 Baso % (Auto) 0.7 Absolute Neuts (auto) 3.9 Absolute Lymphs (auto) 0.66 L Nucleated RBC % 0 Differential Comment SCANNED Atypical Lymphocytes PT INR APTT Specimen Type Sample Site VBG pH VBG pO2 VBG O2 Sat (Calc) VBG O2 Content VBG Base Excess POC Mix VBG pCO2 Pt Tmp O2 Delivery Device Liter Flow Blood Gas Notified Whom Blood Gas Notified Time Sodium 142 Potassium 2.9 L Chloride 106 Carbon Dioxide 29.0 Anion Gap 7 BUN 23 H Creatinine 0.62 L Estim Creat Clear Calc 55.68 Est GFR (MDRD) Af Amer 166 Est GFR (MDRD) Non-Af 137 BUN/Creatinine Ratio 37.4 H Glucose 164 H Calcium 7.9 L Total Bilirubin 0.80 AST 39 H ALT 37 Alkaline Phosphatase 130 H Lactate Dehydrogenase B-Natriuretic Peptide 2806.8 H Total Protein 5.6 L Albumin 1.6 L Globulin 4.0 Albumin/Globulin Ratio 0.4 L Procalcitonin Vancomycin Trough MRSA (PCR) POC Glucose 11/08/19 11/08/19 11/08/19 05:12 09:00 10:46 WBC RBC Hgb Hct MCV MCH MCHC RDW Std Deviation RDW Coeff of [place] Plt Count MPV Immature Gran % (Auto) Neut % (Auto) Lymph % (Auto) [place] % (Auto) Eos % (Auto) Baso % (Auto) Absolute Neuts (auto) Absolute Lymphs (auto) Nucleated RBC % Differential Comment Atypical Lymphocytes PT INR APTT Specimen Type Sample Site VBG pH VBG pO2 VBG O2 Sat (Calc) VBG O2 Content VBG Base Excess POC Mix VBG pCO2 Pt Tmp O2 Delivery Device Liter Flow Blood Gas Notified Whom Blood Gas Notified Time Sodium Potassium Chloride Carbon Dioxide Anion Gap BUN Creatinine Estim Creat Clear Calc Est GFR (MDRD) Af Amer Est GFR (MDRD) Non-Af BUN/Creatinine Ratio Glucose Calcium Total Bilirubin AST ALT Alkaline Phosphatase Lactate Dehydrogenase B-Natriuretic Peptide Total Protein Albumin Globulin Albumin/Globulin Ratio Procalcitonin 0.88 H Vancomycin Trough MRSA (PCR) Negative POC Glucose 158 H 11/08/19 10:46 WBC RBC Hgb Hct MCV MCH MCHC RDW Std Deviation RDW Coeff of [place] Plt Count MPV Immature Gran % (Auto) Neut % (Auto) Lymph % (Auto) [place] % (Auto) Eos % (Auto) Baso % (Auto) Absolute Neuts (auto) Absolute Lymphs (auto) Nucleated RBC % Differential Comment Atypical Lymphocytes PT INR APTT Specimen Type Sample Site VBG pH VBG pO2 VBG O2 Sat (Calc) VBG O2 Content VBG Base Excess POC Mix VBG pCO2 Pt Tmp O2 Delivery Device Liter Flow Blood Gas Notified Whom Blood Gas Notified Time Sodium Potassium Chloride Carbon Dioxide Anion Gap BUN Creatinine Estim Creat Clear Calc Est GFR (MDRD) Af Amer Est GFR (MDRD) Non-Af BUN/Creatinine Ratio Glucose Calcium Total Bilirubin AST ALT Alkaline Phosphatase Lactate Dehydrogenase 528 H B-Natriuretic Peptide Total Protein 5.0 L Albumin Globulin 3.3 Albumin/Globulin Ratio 0.5 L Procalcitonin Vancomycin Trough MRSA (PCR) POC Glucose Microbiology 11/04/19 23:25 Blood Culture (Wb) - Right Hand Blood Culture - Preliminary No growth in 48 hours. 11/04/19 22:15 Blood Culture (Wb) - Pic Blood Culture - Preliminary No growth in 48 hours. 11/04/19 22:35 Urine, Catheterized Urine Culture - Final Culture exhibits no growth. Clinical Impression(s) from Imaging Studies Abdomen/Pelvis CT 11/04/19 22:27 IMPRESSION: 1. A new left mid abdominal PEG tube is present in the proximal one third aspect of the stomach. 2. A small amount of extraluminal air and tiny amounts of fluid are present in the left anterior intra-abdominal region directly adjacent to the portion of the stomach containing the PEG tube most likely related to recent placement procedure. 3. Test injection of the PEG tube with contrast in consultation with the service that placed the feeding tube can be performed to evaluate for possible extraluminal leakage. 4. Previously seen moderate bilateral pleural effusions are decreased in volume with a tiny amount seen on the right and a small amount remaining on the left. Electronically Signed: Ricky Das MD at 23:54 EDT , Service support , Chest X-Ray 11/04/19 23:00 IMPRESSION: 1. Chronic appearing scattered and consolidative fibrosis of both lungs, most prominent in the right upper lobe. 2. Cystic emphysematous changes Electronically Signed: Ricky Das MD at 23:33 EDT , Service support , Chest CTA 11/07/19 08:32 IMPRESSION: Moderate degree of bilateral pleural effusions with infiltration of the lung bases and new infiltrate in the right upper lobe superimposed on chronic emphysematous changes and bullous formation as well as pulmonary fibrosis. Electronically Signed: Flaco Gale, at 12:25 EDT , Service support , Abdomen CT 11/07/19 08:33 IMPRESSION: Stable examination. The PEG tube is not seen at this time. Electronically Signed: Flaco Gale, at 12:29 EDT , Service support , Chest X-Ray 11/08/19 05:00 IMPRESSION: Worsening bilateral airspace disease especially within the right lung likely representing pneumonia. Kyphoscoliosis with underlying chronic lung disease. at 0603 Reported and signed by: Yovany Workman MD Electronically Signed: Yovany Workman MD at 6:02 EDT Tel , Service support , Abdomen CT 11/08/19 08:19 IMPRESSION: A PEG tube is seen within the inferior portion of the stomach as described. No extravasation of oral contrast. Stable small amount of free extraluminal air adjacent to the medial aspect of the left lobe of the liver. Electronically Signed: Flaco Gale, at 10:28 EDT , Service support , Current Medications Acetaminophen (Tylenol) 650 mg RECTAL Q4H PRN PRN PRN Reason: Pain Score 1-10/Temp > 100.7 F Last Admin: 11/08/19 06:14 Dose: 650 mg Documented by: Albuterol/Ipratropium (Duoneb) 3 ml INHALATION Q6HWA.RT [facility] Last Admin: 11/08/19 06:35 Dose: 3 ml Documented by: Aspirin (Aspirin) 300 mg RECTAL DAILY [facility] Last Admin: 11/08/19 10:31 Dose: Not Given Documented by: Calamine/Phenol (Calmoseptine Ointment) 1 applic TOPICAL BID [facility]; Protocol Last Admin: 11/08/19 09:05 Dose: 1 applicatio Documented by: Dextrose (D50w Syringe) 0 gm IV X1 PRN; Protocol PRN Reason: Hypoglycemia Furosemide (Lasix) 40 mg IV BID@1000,1800 [facility] Glucagon () 1 mg IM .X1 PRN PRN Reason: Hypoglycemia Sodium Chloride () 250 mls @ 15 mls/hr IV .[id number] PRN PRN Reason: Saline Flush Sodium Chloride () 250 mls @ 15 mls/hr IV .[id number] PRN PRN Reason: Additional IVPB Infusion Multivitamins 10 ml/ Chromium/Copper/Manganese/Seleni/Zn 1 ml/ Folic Acid 1 mg/ Amino Acids/Electrolytes 2,011 mls @ 84 mls/hr IV .[id number] [facility] Stop: 11/08/19 15:48 Last Admin: 11/07/19 17:13 Dose: 84 mls/hr Documented by: Meropenem 1 gm/ Sodium (Chloride) 120 mls @ 33 mls/hr IV Q8 [facility] Multivitamins 10 ml/ Chromium/Copper/Manganese/Seleni/Zn 1 ml/ Folic Acid 1 mg/ Amino Acids/Electrolytes 2,011 mls @ 84 mls/hr IV .[id number] [facility] Stop: 11/09/19 15:48 Enteral Nutritional Formula (Vital Af 1.2 Arun Liquid) 1,000 mls @ 15 mls/hr GT .Q48H [facility] Insulin Human Lispro (Humalog Kwikpen (Bkc)) 0 unit SC Q6 [facility]; Protocol Last Admin: 11/08/19 11:22 Dose: 1 u Documented by: Metoprolol Tartrate (Lopressor (Beta Agnieszka)) 5 mg IV Q6 [facility] Last Admin: 11/08/19 11:21 Dose: 5 mg Documented by: Morphine Sulfate () 1 mg IV Q3H PRN PRN PRN Reason: Abdominal pain 6-10 Last Admin: 11/07/19 16:49 Dose: 1 mg Documented by: Ondansetron HCl (Zofran) 4 mg IV Q8H PRN PRN PRN Reason: NAUSEA/VOMITING Sodium Chloride () 10 - 40 ml IV UD PRN PRN Reason: SALINE FLUSH Last Admin: 11/08/19 11:22 Dose: 10 ml Documented by: Assessment/Plan All Active Problems (Last Reviewed 11/05/19 @ 01:[address] Adriano Benton MD) Cardiomyopathy (Acute) Pneumothorax on right (Acute) Pneumothorax, right (Acute) Acute on chronic systolic (congestive) heart failure (Acute) Severe sepsis (Acute) RECOMMENDATIONS: 1. Continue empiric antimicrobials. 2. Recommend discontinuation of IV morphine, given encephalopathy. 3. Wean supplemental oxygen to maintain saturations at or above 90%. 4. Utilize BiPAP as needed. Alternatively, Airvo can also be utilized for patient comfort. 5. Aggressive diuresis. 6. Ultrasound-guided thoracentesis. IMPRESSIONS: 1. Acute hypoxemic respiratory failure Most likely secondary to decompensated heart failure. The patient does have an elevated BNP and troponin. He is overall net +8+ liters for the hospital admission. At this time, he needs to be aggressively diuresed. Primary team is planning for ultrasound-guided thoracentesis. I do believe it is reasonable, given the patient's recent fevers, to continue empiric antimicrobials. May wish to consider cardiology consultation. Recommend weaning FiO2 to maintain oxygen saturations at or above 90%. If the patient does not tolerate BiPAP therapy, Airvo can be utilized. This note was generated with [employer] dictation software. It may contain incorrect words, spelling, and punctuation that were not noted in checking the note before signing. Inpatient E&M: 63600 Init Hosp L3
--- NOTE | 2019-11-08 13:30 | NURSING ---
This RN has updated pt's , Janee multiple times today for updates and to receive consent for thoracentesis. Consent confirmed with Ayaan Scott RN.
--- NOTE | 2019-11-08 14:52 | RAD_ITS ---
STUDY: X-RAY CHEST REASON FOR EXAM: Male, 69 years old. POST THORA TECHNIQUE: AP inspiration and expiration views. COMPARISON: Comparison is made with prior examination done earlier in the day. FINDINGS: EKG electrodes are seen. There is an approximately 10% right-sided pneumothorax. Stable dense fibrosis of the right lung. Stable pleural parenchymal changes at the left lung base. RAD/Chest Insp/Exp 2 View IMPRESSION: Status post right thoracentesis with a 10% right pneumothorax. Electronically Signed: Flaco Gale, at 15:08 EDT , Service support ,
[2019-11-08 15:16] LABS: Cytology, Body Fluid / CSF SEE PATHOLOGY REPORT
--- NOTE | 2019-11-08 15:27 | CPS ---
Per communication with Dr. Lynne, Airvo and Bipap on hold until further instruction.
--- NOTE | 2019-11-08 15:43 | NURSING ---
This RN notified Lavon Rangel, that pt's breathing is much more labored since paracentesis and HR maintaining in 130's. Lavon Rangel ACCOUNTING CLERK in to assess pt.
[2019-11-08 15:44] LABS: Body Fluid Mononuclear WBC # 0.079 10^3/uL; Body Fluid Mononuclear WBC % 38.2 %; Body Fluid Polynuclear WBC # 0.128 10^3/uL; Body Fluid Polynuclear WBC % 61.8 %; Body Fluid Total Cells Counted 0.227 10^3/ul; White Blood Count/Body Fluid 0.207 10^3/uL
--- NOTE | 2019-11-08 15:56 | PCM.CONS.C ---
Problem List (1) Acute respiratory failure Status: Inactive (2) Acute on chronic systolic (congestive) heart failure Status: Acute (3) Cardiomyopathy Status: Acute (4) CAD (coronary artery disease) Status: Chronic Qualifiers: (5) PAD (peripheral artery disease) Status: Chronic (6) HLD (hyperlipidemia) Status: Chronic Qualifiers: (7) HTN (hypertension) Status: Chronic Qualifiers: (8) Diabetes mellitus, type II Status: Chronic Qualifiers: Diabetes mellitus [facility] insulin use: without long wall shear operator use Diabetes mellitus complication status: with other specified complication Qualified Code(s): E11.69 - Type 2 diabetes mellitus with other specified complication (9) COPD (chronic obstructive pulmonary disease) Status: Chronic (10) Pneumothorax on right Status: Acute (11) Acute metabolic encephalopathy Status: Inactive Reason for Consult Date of Consultation: 11/08/19 History of Present Illness: The patient is a 69 year old white male with a history of acute respiratory distress, concerns of acute on chronic systolic mediated CHF, cardiomyopathy, history of CAD-details unknown, hyperlipidemia, hypertension, diabetes mellitus, COPD, now status post right centesis with right-sided pneumothorax, and ongoing concerns of metabolic encephalopathy who is referred for cardiovascular evaluation. The patient is disoriented at this time with respect to place and time. He does not appear to offer any obvious past medical history other than stating that he believes he had open heart surgery in the past. However, his chest x-ray does not appear to demonstrate classic post open heart surgery changes. He has been in and out of [facility] and the TCU recently based upon concerns of declining respiratory status with concerns of pneumonia and COPD exacerbation. He is now back in the acute care setting of [facility] with continued respiratory related concerns. He does not appear to complain of ongoing chest discomfort. He is noted to have the appearance of shortness of breath and increased respiratory rate despite O2 nasal cannula. There has been no report of lower extremity edema. There has been no report of near syncope or syncope. He has had an indeterminate troponin I level. His BNP level was elevated. His ECG demonstrated the appearance of sinus rhythm with electrocardiographic findings compatible with LVH with repolarization variant. His chest x-ray is have demonstrated the appearance of malrotation as well as bilateral infiltrates/effusion. His post right-sided thoracentesis chest x-ray now demonstrates a right-sided pneumothorax. He has also undergone evaluation with transthoracic echocardiograms. The most recent results are as noted. Interpretation Summary Normal LV size. The estimated ejection fraction is 40 %. Pulmonary artery systolic pressure is 50 mmHg. Moderate pulmonary hypertension. Mild-Moderate (1-2+) eccentric mitral valve insufficiency. Mild-Moderate (1-2+) aortic valve insufficiency. [] Past Medical History Allergies/Adverse Reactions: Allergies VALENTINA Inhibitors Allergy (Verified 11/04/19 22:19) Unknown Penicillins Allergy (Verified 11/04/19 22:19) Unknown Home Medications: Ambulatory Orders Medication Instructions Recorded metoprolol tartrate 50 mg tablet 1.5 tab PO BID 30 Days #90 07/20/17 ranolazine 1,000 mg 1 tab PO DAILY 30 Days #60 07/20/17 tablet,extended release,12 hr Cholecalciferol (Vitamin D3) 2,000 unit PO DAILY 10/14/19 [Vitamin D3] Fexofenadine HCl 180 mg PO DAILY 10/14/19 Iron Carbonyl [Feosol] 45 mg PO DAILYCM 10/14/19 Rosuvastatin Calcium 5 mg PO DAILY 10/14/19 Acetaminophen [Tylenol Tablet] 650 mg PO Q6H PRN PRN tab 10/28/19 Albuterol Aerosols [Ventolin 2.5 mg INHALATION Q2H PRN PRN 10/28/19 Aerosols] vial.neb. Glucagon 1 mg IM .X1 PRN syringe 10/28/19 Guaifenesin [Robitussin] 10 ml PO Q4H PRN PRN udc 10/28/19 Insulin Lispro [Humalog KwikPen] See Protocol SUBCUT Q6 10/28/19 Ipratropium/Albuterol Sulfate 3 ml INHALATION Q4HWA.RT 10/28/19 [Duoneb] Labetalol [Trandate] 10 mg IV Q4H 10/28/19 Menthol/Lanolin/Calamine/Znox 1 applic TOPICAL BID 10/28/19 [Calmoseptine Ointment] Nitroglycerin (INPATIENT USE) 0.4 mg SUBLINGUAL Q5M PRN tab.subl 10/28/19 [Nitrostat] Senna/Docusate Sodium [Senokot-S] 2 tab PO BID PRN PRN tab 10/28/19 levoFLOXacin IV [Levaquin 750mg 750 mg IV Q24 10/28/19 IVPB] metroNIDAZOLE [Flagyl IVPB] 500 mg IV Q8 10/28/19 Past Medical History (Chronic Problems): Chronic Problems Debility (Chronic) Abdominal aortic aneurysm (Chronic) COPD (chronic obstructive pulmonary disease) (Chronic) PAOD (peripheral arterial occlusive disease) (Chronic) Diabetes mellitus (Chronic) Alcohol abuse (Chronic) Acne rosacea (Chronic) Cervical spinal stenosis (Chronic) Thrombocytopenia (Chronic) CAD (coronary artery disease) (Chronic) PAD (peripheral artery disease) (Chronic) HTN (hypertension) (Chronic) HLD (hyperlipidemia) (Chronic) Diabetes mellitus, type II (Chronic) Heavy alcohol consumption (Chronic) Former tobacco use (Chronic) Surgical History: cataract, coronary bypass surgery - x 2., tonsillectomy, - - Bilateral carotid endarterectomy, 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 Psychiatric History: Anxiety, Depression - *Family History Maternal History Items: Heart Disease, Hypertension Paternal History Items: Heart Disease, Hypertension Lives: Spouse/ Significant Other Smoking Status: Former smoker Review of Systems - Review of Systems General: Denies: Fever, Night Sweats, Fatigue Cardiovascular: Reports: Shortness of Breath, Shortness of Breath at Rest. Denies: Chest Discomfort, Orthopnea, PND, Peripheral Edema, Palpitations, Lightheadedness, Dizziness, Near Syncope, Syncope Respiratory: Reports: Shortness of Breath. Denies: Cough, Sputum Production, Hemoptysis Gastrointestinal: Denies: Hematemesis, Hematochezia, Melena Genitourinary: Denies: Dysuria, Hematuria Skin: Denies: Rash Subjectve: This is a 69-year-old white male who appears confused and short of breath. Objective: Vital Signs Temp Pulse Resp BP Pulse Ox 98.6 F 135 H 34 H 120/84 H 93 11/08/19 15:00 11/08/19 15:02 11/08/19 15:00 11/08/19 15:00 11/08/19 15:00 Oxygen Flow Rate (L/min) [3] 12 Oxygen Flow Rate (L/min) [2] 12 Oxygen Flow Rate (L/min) [1 ( 12 Initial Baseline)] Oxygen Flow Rate (L/min) 15 Oxygen Delivery Method [3] Nasal Cannula Oxygen Delivery Method [2] Nasal Cannula Oxygen Delivery Method [1 ( Nasal Cannula Initial Baseline)] Oxygen Delivery Method Nasal Cannula Weight: 128 lb 1.417 oz Body Mass Index (BMI) 20.7 Intake and Output for Last 24 Hours 11/06/19 11/07/19 11/08/19 23:59 23:59 23:59 Intake Total 3645.05 / 3645.05 2606.40 / 2606.40 2642.8 / 2642.8 Output Total 425 / 425 875 / 875 990 / 990 Balance 3220.05 / 3220.05 1731.40 / 1731.40 1652.8 / 1652.8 General: Awake, Cooperative, Ill Appearing, Disoriented, - - Cachectic appearing HEENT: Atraumatic, Normocephalic, PERRL, EOMI, Sclera Non Icteric Oral: Moist Mucosa Neck: Supple, Good ROM - Diminished breath sounds bilaterally Cardiovascular: Regular Rhythm, Normal S1, Normal S2 Abdomen: Bowel Sounds Present, Soft Extremities: No edema 11/07/19 22:25: VBG pH 7.41, VBG pO2 19 L*, VBG O2 Sat (Calc) 31 L, VBG O2 Content 29, VBG Base Excess 3 11/08/19 04:46: WBC 5.5, RBC 3.50 L, Hgb 11.4 L, Hct 34.9 L, MCV 99.7 H D, MCH 32.6 H, MCHC 32.7, Plt Count 358, MPV 12.9 H, Immature Gran % (Auto) 0.900, Neut % (Auto) 70.9 H, Lymph % (Auto) 11.9 L, [place] % (Auto) 13.4 H, Eos % (Auto) 2.2, Baso % (Auto) 0.7, Absolute Neuts (auto) 3.9, Nucleated RBC % 0 11/08/19 04:46: Sodium 142, Potassium 2.9 L, Chloride 106, Carbon Dioxide 29.0, Anion Gap 7, BUN 23 H, Creatinine 0.62 L, Est GFR (MDRD) Af Amer 166, Est GFR (MDRD) Non-Af 137, BUN/Creatinine Ratio 37.4 H, Glucose 164 H, Calcium 7.9 L, Total Bilirubin 0.80 11/08/19 04:46: B-Natriuretic Peptide 2806.8 H Rhythm: Sinus rhythm EKG: As noted above ECHO: As noted above CXR: As noted above Assessment/Plan 1. Acute respiratory distress The patient continues with acute respiratory related issues. The etiology may be multifactorial. From a cardiovascular standpoint there are concerns about diminished LV systolic function and the possibility of acute on chronic systolic mediated CHF. The same time the patient has underlying pulmonary disease which could lead to findings of his pulmonary hypertension and subsequent adverse pulmonary effects. The patient has now also undergone a right-sided thoracentesis with a subsequent right-sided pneumothorax. This may exacerbate his already challenging underlying pulmonary disease process. From a cardiac standpoint he does need to continue to be monitored. He needs continued input from internal medicine as well as pulmonology. He may need input from surgery with respect to whether or not he may need a right-sided chest tube. From a cardiac standpoint he will continue noninvasive evaluation and care. This will include medical management including diuretic therapy. Hopefully this will help his volume status which will help his underlying pulmonary disease process. 2. Acute on chronic systolic mediated CHF The patient appears to have evidence of diminished LV systolic function. This could lead to acute on chronic systolic mediated CHF. At the present time he will continue noninvasive evaluation and conservative medical management. This will include diuretic therapy. His other medications can be adjusted as needed. 3. Cardiomyopathy He does have diminished LV systolic function based upon his echocardiographic findings. It is unclear at this time whether he has a history of underlying CAD. His echocardiographic findings are as noted. At the moment he will continue medical management and support. 4. CAD The patient states he has a history of open heart surgery. He does not appear to demonstrate obvious physical examination findings or radiologic findings. He does have an indeterminate troponin. This may be related to a type II event brought out by his acute respiratory distress related issue. At the moment he will continue to be monitored and he will continue medical therapy. He does not appear to be an ideal candidate for any invasive cardiovascular evaluation or care at this time. 5. Hyperlipidemia He should continue risk factor evaluation care as deemed appropriate. 6. Hypertension His blood pressure can be followed and his medications can be adjusted as needed. 7. Diabetes mellitus He will continue under care of internal medicine. 8. COPD He does have a history of underlying COPD. He will need continued input from internal medicine and pulmonology. 9. Pneumothorax He is status post right-sided thoracentesis with a right-sided pneumothorax. This was discussed with his [facility] hospitalist team. They are going to request input from surgery with respect to whether or not the patient may need a right-sided chest tube. 10. Metabolic encephalopathy The patient is disoriented. Based upon the [facility] staff this was thought to be metabolic related. He will need continued evaluation care by internal medicine. Overall, this appears to be a ill debilitated patient with multiple medical issues. From a cardiac standpoint it would be recommended he continue his noninvasive evaluation and conservative medical therapy as he does not appear to be an ideal candidate for any invasive cardiovascular evaluation or care at this time. Comment: The patient's case was discussed and reviewed with the [facility] staff. This note was generated using a voice recognition system and there may be incorrect words, spelling or punctuation that were not noted when reviewing the office note prior to saving.
[2019-11-08 16:02] LABS: Appearance/Body Fluid CLEAR; Auto B Fluid Analyzer BKGD Ct COUNTS W/IN LIMITS (W/IN LIMITS); Color/Body Fluid YELLOW; Red Cell Count/Body Fluid 88 /mm3; Source- Body Fluid THORACENTESIS
[2019-11-08 16:21] LABS: LDH,Body Fluid 194 Units/l (Not Establ.); Protein, Body Fluid 0.9 g/dL (Not Establ.)
[2019-11-08 16:33] LABS: Lymphocytes 18 %; Mesothelial Cells 12 %; Monocytes 3 %; Neutrophil (Segs) 67 %
[2019-11-08 16:34] LABS: Body Fluid QC Type(s) BF1Q
--- NOTE | 2019-11-08 17:01 | RAD_ITS ---
STUDY: X-RAY CHEST REASON FOR EXAM: Male, 69 years old. right chest tube placment TECHNIQUE: AP portable COMPARISON: November 08, 2019 4:07 PM FINDINGS: Diffuse interstitial thickening and emphysematous changes are seen bilaterally more severe in the right lung particularly the lower lobe. There is focal consolidation of the left lower lobe with small effusion.. Central line seen on the left with tip in distal superior vena cava. Right chest tube is noted Mild cardiac prominence. Normal mediastinum and taco. Normal visualized pulmonary arteries. Mildly calcified aortic arch and descending thoracic aorta. Normal visualized thoracic spine. Normal visualized ribs, clavicles, and shoulders. There is no demonstrated abnormality of the visualized soft tissue structures of the upper abdomen. There is tiny residual apical pneumothorax status post chest tube placement. No other significant change RAD/Chest 1 View (Portable) IMPRESSION: Tiny residual right apical pneumothorax with interval improvement status post chest tube placement. Findings otherwise unchanged since previous study Electronically Signed: Jaciel Rodriguez MD at 17:26 EDT , Service support ,
--- NOTE | 2019-11-08 17:12 | PCM.OPRPT ---
Problem List (1) Pneumothorax, right Status: Acute Report of Operation Date of Procedure: 11/08/19 Pre-Operative Diagnosis: Iatrogenic right pneumothorax Post-Operative Diagnosis: Same Surgery/Procedure Performed:: Percutaneous right chest tube placement Description of Procedure: The patient's was contacted and gave consent for the procedure after explained the risks of bleeding, infection, injury to the lung. The patient's agreed to proceed. The right chest was prepped and draped in the usual sterile fashion. X-ray was examined and confirmed that the pneumothorax is on the right side. Next local anesthetic was injected to the skin and a wheal was raised. A small cliff was made with a scalpel. The percutaneous needle was placed in the lateral chest wall just superior to a rib. It was advanced until the syringe was able to pull back air. The catheter was then advanced over the needle into the chest wall and the needle was removed. There was a erickson of air. It was placed to Heimlich valve and 20 of wall suction. The catheter was sutured to the skin using the silk suture from the kit. It was then taped into place. It was placed to Pleur-evac suction at -20. There was an intermittent air leak with deep breathing. Chest x-ray did reveal that the lung was fully inflated and the catheter was in good position and no kinking occurred. Plan to continue wall suction overnight and obtain chest x-ray in the morning. Patient tolerated the procedure well.
[2019-11-08] MEDS: Furosemide 40 MG/4 ML Vial IV (17:14)
--- NOTE | 2019-11-08 17:14 | CON.PCM_ITS ---
Reason for Consult: fever Consulted by: Dr. Mas History of Present Illness: The patient is a 69 year old M with COPD, recent long hospital stay for pneumonia and CHF, complicated by encephalopathy. Discharged to TCU on levaquin/flagyl and tPN. Had PEG placed, developed abd pain, fever. Transfer red to [facility] on vanc, cefepime, flagyl. Now on cefepime, still with a fever last night, worsened mental status. Pulm, surgery, and cardiology consulted. Thoracentesis today complicated by pneumothorax. ROS unobtainable due to mental status. - Medical History Past Medical History (Chronic Problems): Chronic Problems Debility (Chronic) Abdominal aortic aneurysm (Chronic) COPD (chronic obstructive pulmonary disease) (Chronic) PAOD (peripheral arterial occlusive disease) (Chronic) Diabetes mellitus (Chronic) Alcohol abuse (Chronic) Acne rosacea (Chronic) Cervical spinal stenosis (Chronic) Thrombocytopenia (Chronic) CAD (coronary artery disease) (Chronic) PAD (peripheral artery disease) (Chronic) HTN (hypertension) (Chronic) HLD (hyperlipidemia) (Chronic) Diabetes mellitus, type II (Chronic) Heavy alcohol consumption (Chronic) Former tobacco use (Chronic) Allergies/Adverse Reactions: Allergies VALENTINA Inhibitors Allergy (Verified 11/04/19 22:19) Unknown Penicillins Allergy (Verified 11/04/19 22:19) Unknown Home Medications: Ambulatory Orders Medication Instructions Recorded metoprolol tartrate 50 mg tablet 1.5 tab PO BID 30 Days #90 07/20/17 ranolazine 1,000 mg 1 tab PO DAILY 30 Days #60 07/20/17 tablet,extended release,12 hr Cholecalciferol (Vitamin D3) 2,000 unit PO DAILY 10/14/19 [Vitamin D3] Fexofenadine HCl 180 mg PO DAILY 10/14/19 Iron Carbonyl [Feosol] 45 mg PO DAILYCM 10/14/19 Rosuvastatin Calcium 5 mg PO DAILY 10/14/19 Acetaminophen [Tylenol Tablet] 650 mg PO Q6H PRN PRN tab 10/28/19 Albuterol Aerosols [Ventolin 2.5 mg INHALATION Q2H PRN PRN 10/28/19 Aerosols] vial.neb. Glucagon 1 mg IM .X1 PRN syringe 10/28/19 Guaifenesin [Robitussin] 10 ml PO Q4H PRN PRN udc 10/28/19 Insulin Lispro [Humalog KwikPen] See Protocol SUBCUT Q6 10/28/19 Ipratropium/Albuterol Sulfate 3 ml INHALATION Q4HWA.RT 10/28/19 [Duoneb] Labetalol [Trandate] 10 mg IV Q4H 10/28/19 Menthol/Lanolin/Calamine/Znox 1 applic TOPICAL BID 10/28/19 [Calmoseptine Ointment] Nitroglycerin (INPATIENT USE) 0.4 mg SUBLINGUAL Q5M PRN tab.subl 10/28/19 [Nitrostat] Senna/Docusate Sodium [Senokot-S] 2 tab PO BID PRN PRN tab 10/28/19 levoFLOXacin IV [Levaquin 750mg 750 mg IV Q24 10/28/19 IVPB] metroNIDAZOLE [Flagyl IVPB] 500 mg IV Q8 10/28/19 - Social History SMOKING STATUS:: Former smoker Vital Signs Temp Pulse Resp BP Pulse Ox 98.0 F 141 H 30 H 143/79 H 93 11/08/19 16:59 11/08/19 16:59 11/08/19 16:59 11/08/19 16:59 11/08/19 16:59 Oxygen Flow Rate (L/min) [3] 12 Oxygen Flow Rate (L/min) [2] 12 Oxygen Flow Rate (L/min) [1 ( 12 Initial Baseline)] Oxygen Flow Rate (L/min) 15 Oxygen Delivery Method [3] Nasal Cannula Oxygen Delivery Method [2] Nasal Cannula Oxygen Delivery Method [1 ( Nasal Cannula Initial Baseline)] Oxygen Delivery Method Nasal Cannula Weight: 58.1 kg Body Mass Index (BMI) 20.7 Microbiology Past 72 Hours 11/08/19 15:14 Gram Stain - Final Fluid - Thoracentesis Fluid 11/04/19 23:25 Blood Culture - Preliminary Blood Culture (Wb) - Right Hand No growth in 48 hours. 11/04/19 22:15 Blood Culture - Preliminary Blood Culture (Wb) - Pic No growth in 48 hours. 11/04/19 22:35 Urine Culture - Final Urine, Catheterized Culture exhibits no growth. Laboratory Tests Past 24 Hrs 11/07/19 11/08/19 11/08/19 22:25 04:46 04:46 WBC 5.5 RBC 3.50 L Hgb 11.4 L Hct 34.9 L MCV 99.7 H D MCH 32.6 H MCHC 32.7 RDW Std Deviation 52.1 H RDW Coeff of Xenia 14.6 Plt Count 358 MPV 12.9 H Immature Gran % (Auto) 0.900 Neut % (Auto) 70.9 H Lymph % (Auto) 11.9 L [place] % (Auto) 13.4 H Eos % (Auto) 2.2 Baso % (Auto) 0.7 Absolute Neuts (auto) 3.9 Absolute Lymphs (auto) 0.66 L Nucleated RBC % 0 Differential Comment SCANNED Specimen Type CRISTO Sample Site RR VBG pH 7.41 VBG pO2 19 L* VBG O2 Sat (Calc) 31 L VBG O2 Content 29 VBG Base Excess 3 POC Mix VBG pCO2 Pt Tmp 43.3 O2 Delivery Device NC Liter Flow 10.0 Blood Gas Notified Whom [facility] Blood Gas Notified Time 2235 Sodium 142 Potassium 2.9 L Chloride 106 Carbon Dioxide 29.0 Anion Gap 7 BUN 23 H Creatinine 0.62 L Estim Creat Clear Calc 55.68 Est GFR (MDRD) Af Amer 166 Est GFR (MDRD) Non-Af 137 BUN/Creatinine Ratio 37.4 H Glucose 164 H Calcium 7.9 L Total Bilirubin 0.80 AST 39 H ALT 37 Alkaline Phosphatase 130 H Lactate Dehydrogenase B-Natriuretic Peptide Total Protein 5.6 L Albumin 1.6 L Globulin 4.0 Albumin/Globulin Ratio 0.4 L Procalcitonin Fluid Source Fluid Color Fluid Appearance Fluid pH Fluid WBC Fluid RBC Fluid Tot Cell Count Fld Polynuclear WBCs # Fld Polynuclear WBCs % Fluid Mononuclear WBCs Fld Mononuclear WBCs % Fluid Neutrophils Fluid Lymphocytes Fluid Monocytes Fld Mesothelial Cells Fl Pathologist Comment Fluid Glucose Fluid Total Protein Fluid LDH Fluid Comment 2 MRSA (PCR) Miscellaneous Cytology 11/08/19 11/08/19 11/08/19 04:46 09:00 10:46 WBC RBC Hgb Hct MCV MCH MCHC RDW Std Deviation RDW Coeff of Xenia Plt Count MPV Immature Gran % (Auto) Neut % (Auto) Lymph % (Auto) [place] % (Auto) Eos % (Auto) Baso % (Auto) Absolute Neuts (auto) Absolute Lymphs (auto) Nucleated RBC % Differential Comment Specimen Type Sample Site VBG pH VBG pO2 VBG O2 Sat (Calc) VBG O2 Content VBG Base Excess POC Mix VBG pCO2 Pt Tmp O2 Delivery Device Liter Flow Blood Gas Notified Whom Blood Gas Notified Time Sodium Potassium Chloride Carbon Dioxide Anion Gap BUN Creatinine Estim Creat Clear Calc Est GFR (MDRD) Af Amer Est GFR (MDRD) Non-Af BUN/Creatinine Ratio Glucose Calcium Total Bilirubin AST ALT Alkaline Phosphatase Lactate Dehydrogenase B-Natriuretic Peptide 2806.8 H Total Protein Albumin Globulin Albumin/Globulin Ratio Procalcitonin 0.88 H Fluid Source Fluid Color Fluid Appearance Fluid pH Fluid WBC Fluid RBC Fluid Tot Cell Count Fld Polynuclear WBCs # Fld Polynuclear WBCs % Fluid Mononuclear WBCs Fld Mononuclear WBCs % Fluid Neutrophils Fluid Lymphocytes Fluid Monocytes Fld Mesothelial Cells Fl Pathologist Comment Fluid Glucose Fluid Total Protein Fluid LDH Fluid Comment 2 MRSA (PCR) Negative Miscellaneous Cytology 11/08/19 11/08/19 11/08/19 10:46 15:14 15:14 WBC RBC Hgb Hct MCV MCH MCHC RDW Std Deviation RDW Coeff of Xenia Plt Count MPV Immature Gran % (Auto) Neut % (Auto) Lymph % (Auto) [place] % (Auto) Eos % (Auto) Baso % (Auto) Absolute Neuts (auto) Absolute Lymphs (auto) Nucleated RBC % Differential Comment Specimen Type Sample Site VBG pH VBG pO2 VBG O2 Sat (Calc) VBG O2 Content VBG Base Excess POC Mix VBG pCO2 Pt Tmp O2 Delivery Device Liter Flow Blood Gas Notified Whom Blood Gas Notified Time Sodium Potassium Chloride Carbon Dioxide Anion Gap BUN Creatinine Estim Creat Clear Calc Est GFR (MDRD) Af Amer Est GFR (MDRD) Non-Af BUN/Creatinine Ratio Glucose Calcium Total Bilirubin AST ALT Alkaline Phosphatase Lactate Dehydrogenase 528 H B-Natriuretic Peptide Total Protein 5.0 L Albumin Globulin 3.3 Albumin/Globulin Ratio 0.5 L Procalcitonin Fluid Source Fluid Color Fluid Appearance Fluid pH Pending Fluid WBC Fluid RBC Fluid Tot Cell Count Fld Polynuclear WBCs # Fld Polynuclear WBCs % Fluid Mononuclear WBCs Fld Mononuclear WBCs % Fluid Neutrophils Fluid Lymphocytes Fluid Monocytes Fld Mesothelial Cells Fl Pathologist Comment Fluid Glucose 183 H Fluid Total Protein 0.9 Fluid LDH 194 Fluid Comment 2 MRSA (PCR) Miscellaneous Cytology 11/08/19 11/08/19 15:14 15:14 WBC RBC Hgb Hct MCV MCH MCHC RDW Std Deviation RDW Coeff of Xenia Plt Count MPV Immature Gran % (Auto) Neut % (Auto) Lymph % (Auto) [place] % (Auto) Eos % (Auto) Baso % (Auto) Absolute Neuts (auto) Absolute Lymphs (auto) Nucleated RBC % Differential Comment Specimen Type Sample Site VBG pH VBG pO2 VBG O2 Sat (Calc) VBG O2 Content VBG Base Excess POC Mix VBG pCO2 Pt Tmp O2 Delivery Device Liter Flow Blood Gas Notified Whom Blood Gas Notified Time Sodium Potassium Chloride Carbon Dioxide Anion Gap BUN Creatinine Estim Creat Clear Calc Est GFR (MDRD) Af Amer Est GFR (MDRD) Non-Af BUN/Creatinine Ratio Glucose Calcium Total Bilirubin AST ALT Alkaline Phosphatase Lactate Dehydrogenase B-Natriuretic Peptide Total Protein Albumin Globulin Albumin/Globulin Ratio Procalcitonin Fluid Source THORACENTESIS Fluid Color YELLOW Fluid Appearance CLEAR Fluid pH Fluid WBC 0.207 Fluid RBC 88 Fluid Tot Cell Count 0.227 Fld Polynuclear WBCs # 0.128 Fld Polynuclear WBCs % 61.8 Fluid Mononuclear WBCs 0.079 Fld Mononuclear WBCs % 38.2 Fluid Neutrophils 67 Fluid Lymphocytes 18 Fluid Monocytes 3 Fld Mesothelial Cells 12 Fl Pathologist Comment May follow Fluid Glucose Fluid Total Protein Fluid LDH Fluid Comment 2 SEE COMMENT MRSA (PCR) Miscellaneous Cytology Pending - Other Studies Radiology: [] reviewed Other Studies: [] Route of nutrition/ use of supplements: [] Nutritional Intake: [] IV Site: [] Moreira Catheter: [] - Physical Exam General: No apparent distress, Confused - some unintelligible speech. HEENT: Atraumatic, PERRLA, EOMI Neck: Supple Lungs: Diminished, Rhonchi Cardiovascular: Regular rate, Regular Rhythm Abdomen: Soft, Non Tender, Non-Distended Extremities: No edema Skin: No rashes Musculoskeletal: No Tenderness to Palpation of Joints or Extremities Neurological: Cranial nerves II-XII grossly intact - Assessment/Plan Antibiotics: [] Assessment/Plan: [] Active and Suspected Problems (Last Reviewed 11/05/19 @ 01:[address] Adriano Benton MD) Cardiomyopathy (Acute) Pneumothorax on right (Acute) Fever, pneumonia, pleural effusion - last admit concern that cefepime contributed to his encephalopathy. Will change to meropenem, repeat bcx with new fever, and check PCT. Pleural fluid cx pending. Will follow, thank you, d/w primary team.
[2019-11-08 17:25] LABS: Bedside Glucose 117 mg/dL (70-110)
[2019-11-08] MEDS: Vital AF 1.2 Cal Liquid 1,000 ML 15 ML GT (17:25)
[2019-11-08] MEDS: Morphine 2 MG/ML Syringe 1 MG IV ×2 (18:42→21:38)
[2019-11-08] MEDS: Carvedilol 3.125 MG TABLET PO (21:38)
[2019-11-08] MEDS: Isosorbide DN 10 MG Tablet PO (21:38)
[2019-11-08] MEDS: hydrALAZINE 10 MG Tablet PO (21:38)
--- NOTE | 2019-11-08 22:48 | NURSING ---
Dr. Willson in room at 2030 to evaluate/check on pt. Pt chest tube continuously bubbling. Per Dr. Willson, seems to be only when pt breathing, and respers are high, so that accounts for bubbling. Per Dr. Willson, continue to monitor. [place], RN
[2019-11-08 23:56] LABS: Bedside Glucose 160 mg/dL (70-110)
[2019-11-09] VITALS (36 sets, daily range): BP systolic 101–159; BP diastolic 53–86; PULSE 112–144; RESP 22–40; TEMP 36.5–37.1; O2SAT 90–99; BMI 20.7
--- NOTE | 2019-11-09 00:48 | CPS ---
Pt not placed on bipap per physician request
[2019-11-09] MEDS: Morphine 2 MG/ML Syringe 1 MG IV ×6 (01:53→21:47)
--- NOTE | 2019-11-09 05:00 | RAD_ITS ---
We are attempting to reach an attending provider to discuss findings. An addendum with communication details will be sent when the communication is complete. HISTORY: PNEUMOTHORAX WITH CHEST TUBE, SEVERE SEPSIS EXAM: XR Chest 1 View: COMPARISON: November 08, 2019 chest x-ray, as well as CT scan of the abdomen FINDINGS: # of images incl. paperwork: 2 Severe bilateral airspace disease is similar. A right pneumothorax is larger. The right pleural drain remains. Left arm PICC persists. Severity of the lung disease is similar, greater on the right Heart is enlarged. Severe kyphoscoliosis is likely just positional as it was not present yesterday Pulmonary vascularity is indistinct. Some surgical clips superimposed over the left chest remain. Likely persistent bilateral pleural effusions. RAD/Chest 1 View (Portable) IMPRESSION: Slight increase in size of right pleural effusion. Right pleural drain remains. Severe bilateral airspace disease persists. at 0328 Reported and signed by: Yovany Workman MD Electronically Signed: Yovany Workman MD at 5:25 EDT Tel , Service support ,
[2019-11-09 05:35] LABS: Hematocrit 37.2 % (40-54); Hemoglobin 12.1 g/dL (13.0-16.5); Mean Corp Hgb Conc 32.5 g/dL (32-36); Mean Corpuscular Hgb 31.8 pg (27.0-32.0); Mean Corpuscular Volume 97.9 fL (80-94); Mean Platelet Vol. 12.8 fl (6.2-12.0); POSITIVE COUNT YES; POSITIVE MORPHOLOGY YES; Platelet Count 428 K/mm3 (150-450); RBC Distribution Width CV 14.6 % (11.6-14.6); RBC Distribution Width SD 51.1 fl (35.1-43.9); White Blood Count 5.2 K/mm3 (4.4-11.0)
[2019-11-09 05:40] LABS: Differential Indicated MANUAL DIFF
[2019-11-09] MEDS: Isosorbide DN 10 MG Tablet PO ×3 (05:52→22:13)
[2019-11-09] MEDS: Insulin Lispro 100 UNIT/ML INSULN.PEN SC ×2 (05:52→12:10)
[2019-11-09] MEDS: hydrALAZINE 10 MG Tablet PO ×3 (05:52→22:13)
--- NOTE | 2019-11-09 06:05 | RAD_ITS ---
STUDY: X-RAY CHEST REASON FOR EXAM: Male, 69 years old. PNEUMOTHORAX, INCREASED SUCTION TECHNIQUE: Single AP portable view of the chest. COMPARISON: November 09, 2019 chest x-ray FINDINGS: There is a persistent right-sided pneumothorax. There is a right-sided chest tube. There are persistent right greater than left interstitial infiltrates and groundglass opacities. This poor visualization of the left hemidiaphragm. There is mild cardiac enlargement. Normal mediastinum and taco. Normal visualized pulmonary arteries. There is atherosclerotic calcification of the aortic arch with tortuosity. There are diffuse degenerative changes of the visualized thoracic spine. Normal visualized ribs, clavicles, and shoulders. There is no demonstrated abnormality of the visualized soft tissue structures of the upper abdomen. RAD/Chest 1 View (Portable) IMPRESSION: Persistent right-sided pneumothorax. Left pleural effusion and atelectasis. Diffuse interstitial infiltrates right greater than left. Electronically Signed: Mirela Mcallister MD at 6:30 EDT Tel , Service support ,
[2019-11-09 06:06] LABS: ALB/GLOB Ratio 0.4 RATIO (0.9-2.4); AST(SGOT) 41 U/L (15-37); Alanine Aminotransfer ALT/SGPT 32 U/L (16-61); Albumin, Serum 1.6 g/dL (3.2-5.0); Alkaline Phosphatase 139 U/L (45-117); Anion Gap 7 (5-15); BUN 28 mg/dL (7-18); BUN/Creat Ratio 58.7 RATIO (10-20); Chloride 105 mmol/L (98-107); Creatinine, Serum 0.48 mg/dL (0.70-1.30); EST Glomerular Filtration Rate 184 mL/min (>60); Est Glom Filt Rate - Afr Amer 223 mL/min (>60); Estimated Creatinine Clearance 55.68 ml/min; Globulin 4.5 g/dL (2.2-4.2); Glucose 171 mg/dL (74-106); Magnesium 1.8 mg/dL (1.6-2.6); Phosphorus 2.3 mg/dL (2.5-4.9); Potassium 3.7 mmol/L (3.5-5.1); Protein, Total 6.1 g/dL (6.4-8.2); Sodium Level 139 mmol/L (136-145)
[2019-11-09 06:19] LABS: Eosinophil 3 % (0-5); Lymphocyte 13 % (19-41); Metamyelocyte 4 % (0-1); Monocyte 11 % (0-10); Myelocyte 1 (0-0); Neutrophil-Band 10 % (0-5); Neutrophil-Segmented 58 % (47-70); Total Cells Counted 100 (MANUAL DIFF)
[2019-11-09 06:23] LABS: Absolute Lymphocyte Count 0.68 X10^3/uL (0.83-4.51); Absolute Neutrophil Count 3.5 X10^3/uL (2.0-7.7); Lymphocyte # 0.68 X10^3/ul (4.0); Neutrophil # 3.54 X10^3/uL (2.7-7.7)
[2019-11-09 06:24] LABS: Platelet Estimate ADEQUATE (ADEQ)
[2019-11-09 06:31] LABS: Bedside Glucose 189 mg/dL (70-110)
--- NOTE | 2019-11-09 09:12 | PN_ITS ---
Patient Problems: Active and Suspected Problems (Last Reviewed 11/05/19 @ 01:[address] Adriano Benton MD) Cardiomyopathy (Acute) Pneumothorax on right (Acute) Pneumothorax, right (Acute) Subjective: The patient was seen and examined at the bedside this morning. Events from the last 24 hours have been reviewed. The patient is currently afebrile, hemodynamically stable and maintaining marginal oxygen saturations on a nonrebreather mask. The patient underwent ultrasound-guided thoracentesis yesterday with 990 mL's of imtiaz-colored fluid removed from his right hemithorax. Unfortunately, the patient's developed an iatrogenic pneumothorax, which eventually required tube thoracotomy. The patient has had a persistent air leak since that time. Objective: The patient's most recent lab work, culture data and imaging studies have all been personally reviewed. Blood and urine cultures have been unrevealing to date. Pleural fluid Gram stain revealed no evidence of organisms. - Physical Exam Vitals/I&O's: Vital Signs Temp Pulse Resp BP Pulse Ox 98.8 F 120 H 25 H 136/65 H 94 11/09/19 07:00 11/09/19 07:00 11/09/19 07:00 11/09/19 07:00 11/09/19 07:00 Oxygen Flow Rate (L/min) [3] 12 Oxygen Flow Rate (L/min) [2] 12 Oxygen Flow Rate (L/min) [1 ( 12 Initial Baseline)] Oxygen Flow Rate (L/min) 15 Oxygen Delivery Method [3] Nasal Cannula Oxygen Delivery Method [2] Nasal Cannula Oxygen Delivery Method [1 ( Nasal Cannula Initial Baseline)] Oxygen Delivery Method Nasal Cannula Weight: 128 lb 8.472 oz Body Mass Index (BMI) 20.7 Intake and Output for Last 24 Hours 11/07/19 11/08/19 11/09/19 23:59 23:59 23:59 Intake Total 2606.40 / 2606.40 2762.8 / 2762.8 120 / 120 Output Total 875 / 875 1025 / 1025 25 / 25 Balance 1731.40 / 1731.40 1737.8 / 1737.8 95 / 95 General: - - The patient is quite ill, frail and cachectic in appearance. He has a great deal of difficulty answering questions appropriately. HEENT: Atraumatic, Normocephalic Oral: Dry Mucosa Neck: Supple, No Nodes, Trachea Midline Lungs: Diminished, Tachypneic Cardiovascular: Normal S1, Normal S2, No murmurs, Tachycardic Abdomen: Soft, Non-Distended, Tender Extremities: No clubbing, No cyanosis, No edema Skin: No breakdown Musculoskeletal: Cachexia Lymphatic: No Cervical, Supraclavicular, or Inguinal Adenopathy Neurological: - - No focal neurological deficits. Labs (Last 48 Hours) 11/07/19 11/07/19 11/07/19 12:21 18:39 22:25 WBC RBC Hgb Hct MCV MCH MCHC RDW Std Deviation RDW Coeff of Xenia Plt Count MPV Immature Gran % (Auto) Neut % (Auto) Lymph % (Auto) [place] % (Auto) Eos % (Auto) Baso % (Auto) Absolute Neuts (auto) Absolute Lymphs (auto) Total Counted Neutrophils % (Manual) Band Neutrophils % Lymphocytes % (Manual) Monocytes % (Manual) Eosinophils % (Manual) Metamyelocytes % Myelocytes % Nucleated RBC % Differential Comment Diff Path Review Platelet Estimate Specimen Type CRISTO Sample Site RR VBG pH 7.41 VBG pO2 19 L* VBG O2 Sat (Calc) 31 L VBG O2 Content 29 VBG Base Excess 3 POC Mix VBG pCO2 Pt Tmp 43.3 O2 Delivery Device NC Liter Flow 10.0 Blood Gas Notified Whom HOSP MD Blood Gas Notified Time 2235 Sodium Potassium Chloride Carbon Dioxide Anion Gap BUN Creatinine Estim Creat Clear Calc Est GFR (MDRD) Af Amer Est GFR (MDRD) Non-Af BUN/Creatinine Ratio Glucose Calcium Phosphorus Magnesium Total Bilirubin AST ALT Alkaline Phosphatase Lactate Dehydrogenase B-Natriuretic Peptide Total Protein Albumin Globulin Albumin/Globulin Ratio Procalcitonin Fluid Source Fluid Color Fluid Appearance Fluid pH Fluid WBC Fluid RBC Fluid Tot Cell Count Fld Polynuclear WBCs # Fld Polynuclear WBCs % Fluid Mononuclear WBCs Fld Mononuclear WBCs % Fluid Neutrophils Fluid Lymphocytes Fluid Monocytes Fld Mesothelial Cells Fl Pathologist Comment Fluid Glucose Fluid Total Protein Fluid LDH Fluid Comment 2 MRSA (PCR) Miscellaneous Cytology POC Glucose 75 129 H 11/08/19 11/08/19 11/08/19 00:50 04:46 04:46 WBC 5.5 RBC 3.50 L Hgb 11.4 L Hct 34.9 L MCV 99.7 H D MCH 32.6 H MCHC 32.7 RDW Std Deviation 52.1 H RDW Coeff of Xenia 14.6 Plt Count 358 MPV 12.9 H Immature Gran % (Auto) 0.900 Neut % (Auto) 70.9 H Lymph % (Auto) 11.9 L [place] % (Auto) 13.4 H Eos % (Auto) 2.2 Baso % (Auto) 0.7 Absolute Neuts (auto) 3.9 Absolute Lymphs (auto) 0.66 L Total Counted Neutrophils % (Manual) Band Neutrophils % Lymphocytes % (Manual) Monocytes % (Manual) Eosinophils % (Manual) Metamyelocytes % Myelocytes % Nucleated RBC % 0 Differential Comment SCANNED Diff Path Review Platelet Estimate Specimen Type Sample Site VBG pH VBG pO2 VBG O2 Sat (Calc) VBG O2 Content VBG Base Excess POC Mix VBG pCO2 Pt Tmp O2 Delivery Device Liter Flow Blood Gas Notified Whom Blood Gas Notified Time Sodium 142 Potassium 2.9 L Chloride 106 Carbon Dioxide 29.0 Anion Gap 7 BUN 23 H Creatinine 0.62 L Estim Creat Clear Calc 55.68 Est GFR (MDRD) Af Amer 166 Est GFR (MDRD) Non-Af 137 BUN/Creatinine Ratio 37.4 H Glucose 164 H Calcium 7.9 L Phosphorus Magnesium Total Bilirubin 0.80 AST 39 H ALT 37 Alkaline Phosphatase 130 H Lactate Dehydrogenase B-Natriuretic Peptide Total Protein 5.6 L Albumin 1.6 L Globulin 4.0 Albumin/Globulin Ratio 0.4 L Procalcitonin Fluid Source Fluid Color Fluid Appearance Fluid pH Fluid WBC Fluid RBC Fluid Tot Cell Count Fld Polynuclear WBCs # Fld Polynuclear WBCs % Fluid Mononuclear WBCs Fld Mononuclear WBCs % Fluid Neutrophils Fluid Lymphocytes Fluid Monocytes Fld Mesothelial Cells Fl Pathologist Comment Fluid Glucose Fluid Total Protein Fluid LDH Fluid Comment 2 MRSA (PCR) Miscellaneous Cytology POC Glucose 213 H 11/08/19 11/08/19 11/08/19 04:46 05:12 09:00 WBC RBC Hgb Hct MCV MCH MCHC RDW Std Deviation RDW Coeff of Xenia Plt Count MPV Immature Gran % (Auto) Neut % (Auto) Lymph % (Auto) [place] % (Auto) Eos % (Auto) Baso % (Auto) Absolute Neuts (auto) Absolute Lymphs (auto) Total Counted Neutrophils % (Manual) Band Neutrophils % Lymphocytes % (Manual) Monocytes % (Manual) Eosinophils % (Manual) Metamyelocytes % Myelocytes % Nucleated RBC % Differential Comment Diff Path Review Platelet Estimate Specimen Type Sample Site VBG pH VBG pO2 VBG O2 Sat (Calc) VBG O2 Content VBG Base Excess POC Mix VBG pCO2 Pt Tmp O2 Delivery Device Liter Flow Blood Gas Notified Whom Blood Gas Notified Time Sodium Potassium Chloride Carbon Dioxide Anion Gap BUN Creatinine Estim Creat Clear Calc Est GFR (MDRD) Af Amer Est GFR (MDRD) Non-Af BUN/Creatinine Ratio Glucose Calcium Phosphorus Magnesium Total Bilirubin AST ALT Alkaline Phosphatase Lactate Dehydrogenase B-Natriuretic Peptide 2806.8 H Total Protein Albumin Globulin Albumin/Globulin Ratio Procalcitonin Fluid Source Fluid Color Fluid Appearance Fluid pH Fluid WBC Fluid RBC Fluid Tot Cell Count Fld Polynuclear WBCs # Fld Polynuclear WBCs % Fluid Mononuclear WBCs Fld Mononuclear WBCs % Fluid Neutrophils Fluid Lymphocytes Fluid Monocytes Fld Mesothelial Cells Fl Pathologist Comment Fluid Glucose Fluid Total Protein Fluid LDH Fluid Comment 2 MRSA (PCR) Negative Miscellaneous Cytology POC Glucose 158 H 11/08/19 11/08/19 11/08/19 10:46 10:46 15:14 WBC RBC Hgb Hct MCV MCH MCHC RDW Std Deviation RDW Coeff of Xenia Plt Count MPV Immature Gran % (Auto) Neut % (Auto) Lymph % (Auto) [place] % (Auto) Eos % (Auto) Baso % (Auto) Absolute Neuts (auto) Absolute Lymphs (auto) Total Counted Neutrophils % (Manual) Band Neutrophils % Lymphocytes % (Manual) Monocytes % (Manual) Eosinophils % (Manual) Metamyelocytes % Myelocytes % Nucleated RBC % Differential Comment Diff Path Review Platelet Estimate Specimen Type Sample Site VBG pH VBG pO2 VBG O2 Sat (Calc) VBG O2 Content VBG Base Excess POC Mix VBG pCO2 Pt Tmp O2 Delivery Device Liter Flow Blood Gas Notified Whom Blood Gas Notified Time Sodium Potassium Chloride Carbon Dioxide Anion Gap BUN Creatinine Estim Creat Clear Calc Est GFR (MDRD) Af Amer Est GFR (MDRD) Non-Af BUN/Creatinine Ratio Glucose Calcium Phosphorus Magnesium Total Bilirubin AST ALT Alkaline Phosphatase Lactate Dehydrogenase 528 H B-Natriuretic Peptide Total Protein 5.0 L Albumin Globulin 3.3 Albumin/Globulin Ratio 0.5 L Procalcitonin 0.88 H Fluid Source Fluid Color Fluid Appearance Fluid pH Fluid WBC Fluid RBC Fluid Tot Cell Count Fld Polynuclear WBCs # Fld Polynuclear WBCs % Fluid Mononuclear WBCs Fld Mononuclear WBCs % Fluid Neutrophils Fluid Lymphocytes Fluid Monocytes Fld Mesothelial Cells Fl Pathologist Comment Fluid Glucose 183 H Fluid Total Protein 0.9 Fluid LDH 194 Fluid Comment 2 MRSA (PCR) Miscellaneous Cytology POC Glucose 11/08/19 11/08/19 11/08/19 15:14 15:14 15:14 WBC RBC Hgb Hct MCV MCH MCHC RDW Std Deviation RDW Coeff of Xenia Plt Count MPV Immature Gran % (Auto) Neut % (Auto) Lymph % (Auto) [place] % (Auto) Eos % (Auto) Baso % (Auto) Absolute Neuts (auto) Absolute Lymphs (auto) Total Counted Neutrophils % (Manual) Band Neutrophils % Lymphocytes % (Manual) Monocytes % (Manual) Eosinophils % (Manual) Metamyelocytes % Myelocytes % Nucleated RBC % Differential Comment Diff Path Review Platelet Estimate Specimen Type Sample Site VBG pH VBG pO2 VBG O2 Sat (Calc) VBG O2 Content VBG Base Excess POC Mix VBG pCO2 Pt Tmp O2 Delivery Device Liter Flow Blood Gas Notified Whom Blood Gas Notified Time Sodium Potassium Chloride Carbon Dioxide Anion Gap BUN Creatinine Estim Creat Clear Calc Est GFR (MDRD) Af Amer Est GFR (MDRD) Non-Af BUN/Creatinine Ratio Glucose Calcium Phosphorus Magnesium Total Bilirubin AST ALT Alkaline Phosphatase Lactate Dehydrogenase B-Natriuretic Peptide Total Protein Albumin Globulin Albumin/Globulin Ratio Procalcitonin Fluid Source THORACENTESIS Fluid Color YELLOW Fluid Appearance CLEAR Fluid pH Pending Fluid WBC 0.207 Fluid RBC 88 Fluid Tot Cell Count 0.227 Fld Polynuclear WBCs # 0.128 Fld Polynuclear WBCs % 61.8 Fluid Mononuclear WBCs 0.079 Fld Mononuclear WBCs % 38.2 Fluid Neutrophils 67 Fluid Lymphocytes 18 Fluid Monocytes 3 Fld Mesothelial Cells 12 Fl Pathologist Comment May follow Fluid Glucose Fluid Total Protein Fluid LDH Fluid Comment 2 SEE COMMENT MRSA (PCR) Miscellaneous Cytology Pending POC Glucose 11/08/19 11/08/19 11/09/19 17:08 23:41 05:20 WBC 5.2 RBC 3.80 L Hgb 12.1 L Hct 37.2 L MCV 97.9 H MCH 31.8 MCHC 32.5 RDW Std Deviation 51.1 H RDW Coeff of Xenia 14.6 Plt Count 428 MPV 12.8 H Immature Gran % (Auto) Neut % (Auto) Not Reportable Lymph % (Auto) [place] % (Auto) Eos % (Auto) Baso % (Auto) Absolute Neuts (auto) 3.5 Absolute Lymphs (auto) 0.68 L Total Counted 100 Neutrophils % (Manual) 58 Band Neutrophils % 10 H Lymphocytes % (Manual) 13 L Monocytes % (Manual) 11 H Eosinophils % (Manual) 3 Metamyelocytes % 4 H Myelocytes % 1 H Nucleated RBC % Differential Comment Diff Path Review May foll Platelet Estimate ADEQUATE Specimen Type Sample Site VBG pH VBG pO2 VBG O2 Sat (Calc) VBG O2 Content VBG Base Excess POC Mix VBG pCO2 Pt Tmp O2 Delivery Device Liter Flow Blood Gas Notified Whom Blood Gas Notified Time Sodium Potassium Chloride Carbon Dioxide Anion Gap BUN Creatinine Estim Creat Clear Calc Est GFR (MDRD) Af Amer Est GFR (MDRD) Non-Af BUN/Creatinine Ratio Glucose Calcium Phosphorus Magnesium Total Bilirubin AST ALT Alkaline Phosphatase Lactate Dehydrogenase B-Natriuretic Peptide Total Protein Albumin Globulin Albumin/Globulin Ratio Procalcitonin Fluid Source Fluid Color Fluid Appearance Fluid pH Fluid WBC Fluid RBC Fluid Tot Cell Count Fld Polynuclear WBCs # Fld Polynuclear WBCs % Fluid Mononuclear WBCs Fld Mononuclear WBCs % Fluid Neutrophils Fluid Lymphocytes Fluid Monocytes Fld Mesothelial Cells Fl Pathologist Comment Fluid Glucose Fluid Total Protein Fluid LDH Fluid Comment 2 MRSA (PCR) Miscellaneous Cytology POC Glucose 117 H 160 H 11/09/19 11/09/19 05:20 05:51 WBC RBC Hgb Hct MCV MCH MCHC RDW Std Deviation RDW Coeff of Xenia Plt Count MPV Immature Gran % (Auto) Neut % (Auto) Lymph % (Auto) [place] % (Auto) Eos % (Auto) Baso % (Auto) Absolute Neuts (auto) Absolute Lymphs (auto) Total Counted Neutrophils % (Manual) Band Neutrophils % Lymphocytes % (Manual) Monocytes % (Manual) Eosinophils % (Manual) Metamyelocytes % Myelocytes % Nucleated RBC % Differential Comment Diff Path Review Platelet Estimate Specimen Type Sample Site VBG pH VBG pO2 VBG O2 Sat (Calc) VBG O2 Content VBG Base Excess POC Mix VBG pCO2 Pt Tmp O2 Delivery Device Liter Flow Blood Gas Notified Whom Blood Gas Notified Time Sodium 139 Potassium 3.7 Chloride 105 Carbon Dioxide 27.0 Anion Gap 7 BUN 28 H Creatinine 0.48 L Estim Creat Clear Calc 55.68 Est GFR (MDRD) Af Amer 223 Est GFR (MDRD) Non-Af 184 BUN/Creatinine Ratio 58.7 H Glucose 171 H Calcium 8.0 L Phosphorus 2.3 L Magnesium 1.8 Total Bilirubin 1.00 AST 41 H ALT 32 Alkaline Phosphatase 139 H Lactate Dehydrogenase B-Natriuretic Peptide Total Protein 6.1 L Albumin 1.6 L Globulin 4.5 H Albumin/Globulin Ratio 0.4 L Procalcitonin Fluid Source Fluid Color Fluid Appearance Fluid pH Fluid WBC Fluid RBC Fluid Tot Cell Count Fld Polynuclear WBCs # Fld Polynuclear WBCs % Fluid Mononuclear WBCs Fld Mononuclear WBCs % Fluid Neutrophils Fluid Lymphocytes Fluid Monocytes Fld Mesothelial Cells Fl Pathologist Comment Fluid Glucose Fluid Total Protein Fluid LDH Fluid Comment 2 MRSA (PCR) Miscellaneous Cytology POC Glucose 189 H Microbiology 11/08/19 15:14 Fluid - Thoracentesis Fluid Gram Stain - Final 11/04/19 23:25 Blood Culture (Wb) - Right Hand Blood Culture - Preliminary No growth in 48 hours. 11/04/19 22:15 Blood Culture (Wb) - Pic Blood Culture - Preliminary No growth in 48 hours. 11/04/19 22:35 Urine, Catheterized Urine Culture - Final Culture exhibits no growth. Clinical Impression(s) from Imaging Studies Abdomen/Pelvis CT 11/04/19 22:27 IMPRESSION: 1. A new left mid abdominal PEG tube is present in the proximal one third aspect of the stomach. 2. A small amount of extraluminal air and tiny amounts of fluid are present in the left anterior intra-abdominal region directly adjacent to the portion of the stomach containing the PEG tube most likely related to recent placement procedure. 3. Test injection of the PEG tube with contrast in consultation with the service that placed the feeding tube can be performed to evaluate for possible extraluminal leakage. 4. Previously seen moderate bilateral pleural effusions are decreased in volume with a tiny amount seen on the right and a small amount remaining on the left. Electronically Signed: Ricky Das MD at 23:54 EDT , Service support , Chest X-Ray 11/04/19 23:00 IMPRESSION: 1. Chronic appearing scattered and consolidative fibrosis of both lungs, most prominent in the right upper lobe. 2. Cystic emphysematous changes Electronically Signed: Ricky Das MD at 23:33 EDT , Service support , Chest CTA 11/07/19 08:32 IMPRESSION: Moderate degree of bilateral pleural effusions with infiltration of the lung bases and new infiltrate in the right upper lobe superimposed on chronic emphysematous changes and bullous formation as well as pulmonary fibrosis. Electronically Signed: Flaco Gale, at 12:25 EDT , Service support , Abdomen CT 11/07/19 08:33 IMPRESSION: Stable examination. The PEG tube is not seen at this time. Electronically Signed: Flaco Gale, at 12:29 EDT , Service support , Chest X-Ray 11/08/19 05:00 IMPRESSION: Worsening bilateral airspace disease especially within the right lung likely representing pneumonia. Kyphoscoliosis with underlying chronic lung disease. at 0603 Reported and signed by: Yovany Workman MD Electronically Signed: Yovany Workman MD at 6:02 EDT Tel , Service support , Abdomen CT 11/08/19 08:19 IMPRESSION: A PEG tube is seen within the inferior portion of the stomach as described. No extravasation of oral contrast. Stable small amount of free extraluminal air adjacent to the medial aspect of the left lobe of the liver. Electronically Signed: Flaco Gale at 10:28 EDT , Service support , Thoracentesis Ultrasound 11/08/19 10:15 IMPRESSION: Ultrasound-guided right thoracentesis.. Electronically Signed: Flaco Gale, at 15:20 EDT , Service support , Chest X-Ray 11/08/19 14:52 IMPRESSION: Status post right thoracentesis with a 10% right pneumothorax. Electronically Signed: Flaco Gale, at 15:08 EDT , Service support , Chest X-Ray 11/08/19 17:01 IMPRESSION: Tiny residual right apical pneumothorax with interval improvement status post chest tube placement. Findings otherwise unchanged since previous study Electronically Signed: Jaciel Rodriguez MD at 17:26 EDT , Service support , Chest X-Ray 11/09/19 05:00 IMPRESSION: Slight increase in size of right pleural effusion. Right pleural drain remains. Severe bilateral airspace disease persists. at 0526 Reported and signed by: Yovany Workman MD Electronically Signed: Yovany Workman MD at 5:25 EDT Tel , Service support , ADDENDUM: 11/09/19 0540 IMPRESSION: Slight increase in size of right pleural effusion. Right pleural drain remains. Severe bilateral airspace disease persists. at 0526 Reported and signed by: Yovany Workman MD N.B. : The above information has been verbally conveyed by Yovany Workman MD to Tanya Dorman RN, on 11/09/2019 05:33:42 (ET). Electronically Signed: Yovany Workman MD at 5:25 EDT Tel , Service support , Chest X-Ray 11/09/19 06:05 IMPRESSION: Persistent right-sided pneumothorax. Left pleural effusion and atelectasis. Diffuse interstitial infiltrates right greater than left. Electronically Signed: Mirela Mcallister MD at 6:30 EDT Tel , Service support , Current Medications Acetaminophen (Tylenol) 650 mg RECTAL Q4H PRN PRN PRN Reason: Pain Score 1-10/Temp > 100.7 F Last Admin: 11/08/19 18:18 Dose: 650 mg Documented by: Albuterol/Ipratropium (Duoneb) 3 ml INHALATION Q6HWA.RT [facility] Last Admin: 11/09/19 06:55 Dose: Not Given Documented by: Aspirin (Aspirin) 300 mg RECTAL DAILY [facility] Last Admin: 11/08/19 10:31 Dose: Not Given Documented by: Calamine/Phenol (Calmoseptine Ointment) 1 applic TOPICAL BID [facility]; Protocol Last Admin: 11/08/19 22:31 Dose: 1 applicatio Documented by: Carvedilol (Coreg) 6.25 mg PO BID [facility] Dextrose (D50w Syringe) 0 gm IV X1 PRN; Protocol PRN Reason: Hypoglycemia Furosemide (Lasix) 40 mg IV BID@1000,1800 [facility] Last Admin: 11/08/19 17:14 Dose: 40 mg Documented by: Glucagon () 1 mg IM .X1 PRN PRN Reason: Hypoglycemia Hydralazine HCl (Apresoline) 10 mg PO TID [facility] Last Admin: 11/09/19 05:52 Dose: 10 mg Documented by: Sodium Chloride () 250 mls @ 15 mls/hr IV .[id number] PRN PRN Reason: Saline Flush Sodium Chloride () 250 mls @ 15 mls/hr IV .[id number] PRN PRN Reason: Additional IVPB Infusion Meropenem 1 gm/ Sodium (Chloride) 120 mls @ 33 mls/hr IV Q8 [facility] Last Admin: 11/09/19 05:52 Dose: 33 mls/hr Documented by: Multivitamins 10 ml/ Chromium/Copper/Manganese/Seleni/Zn 1 ml/ Folic Acid 1 mg/ Amino Acids/Electrolytes 2,011 mls @ 84 mls/hr IV .[id number] [facility] Stop: 11/09/19 15:48 Last Admin: 11/08/19 15:25 Dose: 84 mls/hr Documented by: Enteral Nutritional Formula (Vital Af 1.2 Arun Liquid) 1,000 mls @ 15 mls/hr GT .Q48H [place] Last Admin: 11/08/19 17:25 Dose: 15 mls/hr Documented by: Magnesium Sulfate 2 gm/ Sodium (Chloride) 104 mls @ 52 mls/hr IV X1 ONE Stop: 11/09/19 10:59 Insulin Human Lispro (Humalog Kwikpen (Bkc)) 0 unit SC Q6 [facility]; Protocol Last Admin: 11/09/19 05:52 Dose: 1 u Documented by: Isosorbide Dinitrate (Isordil) 10 mg PO TID [facility] Last Admin: 11/09/19 05:52 Dose: 10 mg Documented by: Morphine Sulfate () 1 mg IV Q3H PRN PRN PRN Reason: Abdominal pain 6-04/14 Last Admin: 11/09/19 05:45 Dose: 1 mg Documented by: Ondansetron HCl (Zofran) 4 mg IV Q8H PRN PRN PRN Reason: NAUSEA/VOMITING Potassium Phos/Sodium Phos (Neutra-Phos Packet) 1 packet GT TID [facility] Stop: 11/09/19 22:01 Sodium Chloride () 10 - 40 ml IV UD PRN PRN Reason: SALINE FLUSH Last Admin: 11/08/19 18:42 Dose: 10 ml Documented by: Medical Necessity - Tobacco Use Smoking Status: Former smoker Assessment/Plan All Active Problems (Last Reviewed 11/05/19 @ 01:[address] Adriano Benton MD) Cardiomyopathy (Acute) Pneumothorax on right (Acute) Pneumothorax, right (Acute) Acute on chronic systolic (congestive) heart failure (Acute) Severe sepsis (Acute) RECOMMENDATIONS: 1. Plan for family discussion to discuss goals of care. 2. Given persistent air leak of chest tube, if aggressive measures are to be undertaken, may need to consider large bore chest tube placement. 3. Wean oxygen as tolerated. 4. Avoid the use of BiPAP therapy, given pneumothorax. 5. Continue antimicrobials. 6. Continue Lasix. IMPRESSIONS: 1. Acute hypoxemic respiratory failure Most likely secondary to decompensated heart failure. The patient does have an elevated BNP and troponin. He is overall net 9+ liters for the hospital admission. Attempts at ultrasound-guided thoracentesis was successful in removing just under 1 L of borderline exudative pleural fluid. However, the patient sustained an iatrogenic pneumothorax and had to have a small bore chest tube placed. Unfortunately, the patient continues to have a persistent air leak. At this time, he needs to be aggressively diuresed. I do believe it is reasonable, given the patient's recent fevers, to continue empiric antimicrobials. Recommend weaning FiO2 to maintain oxygen saturations at or above 90%. Avoid BIPAP, given pneumothorax. Consideration to be given to large bore chest tube placement, given persistent air leak, if aggressive measures are to be continued. I do suspect that the borderline exudative pleural fluid criteria is likely secondary to the use of diuretics. Per traditional Light's criteria, if at least one of the following three is fulfilled, the fluid would be considered an exudate: 1. Pleural fluid protein/serum protein ratio greater than 0.5 2. Pleural fluid LDH/serum LDH ratio greater than 0.6 3. Pleural fluid LDH greater than two thirds the upper limits of the laboratories normal serum LDH Based upon my review of the patient's pleural fluid analysis, along with serum LDH and total protein levels, the pleural fluid would be considered borderline exudative in nature. This note was generated with [employer] software. It may contain incorrect words, spelling, and punctuation that were not noted in checking the note before signing. Inpatient E&M: [id number] [facility] L[facility]
--- NOTE | 2019-11-09 09:13 | PN.CARD_ITS ---
Subjectve: The patient is awake. He continues to be confused. Objective: Vital Signs Temp Pulse Resp BP Pulse Ox 98.8 F 120 H 25 H 136/65 H 94 11/09/19 07:00 11/09/19 07:00 11/09/19 07:00 11/09/19 07:00 11/09/19 07:00 Oxygen Flow Rate (L/min) [3] 12 Oxygen Flow Rate (L/min) [2] 12 Oxygen Flow Rate (L/min) [1 ( 12 Initial Baseline)] Oxygen Flow Rate (L/min) 15 Oxygen Delivery Method [3] Nasal Cannula Oxygen Delivery Method [2] Nasal Cannula Oxygen Delivery Method [1 ( Nasal Cannula Initial Baseline)] Oxygen Delivery Method Nasal Cannula Weight: 128 lb 8.472 oz Body Mass Index (BMI) 20.7 Intake and Output for Last 24 Hours 11/07/19 11/08/19 11/09/19 23:59 23:59 23:59 Intake Total 2606.40 / 2606.40 2762.8 / 2762.8 120 / 120 Output Total 875 / 875 1025 / 1025 25 / 25 Balance 1731.40 / 1731.40 1737.8 / 1737.8 95 / 95 General: Awake, Cooperative, Ill Appearing HEENT: Atraumatic, Normocephalic, PERRL, EOMI, Sclera Non Icteric Oral: Moist Mucosa Neck: Supple, Good ROM Lungs: - - Diminished breath sounds bilaterally Cardiovascular: Regular Rhythm, Normal S1, Normal S2 Abdomen: Bowel Sounds Present, Soft Extremities: No edema 11/08/19 04:46: B-Natriuretic Peptide 2806.8 H 11/09/19 05:20: WBC 5.2, RBC 3.80 L, Hgb 12.1 L, Hct 37.2 L, MCV 97.9 H, MCH 31.8, MCHC 32.5, Plt Count 428, MPV 12.8 H, Neut % (Auto) Not Reportable, Absolute Neuts (auto) 3.5, Total Counted 100, Neutrophils % (Manual) 58, Band Neutrophils % 10 H, Lymphocytes % (Manual) 13 L, Monocytes % (Manual) 11 H, Eosinophils % (Manual) 3, Metamyelocytes % 4 H, Myelocytes % 1 H 11/09/19 05:20: Sodium 139, Potassium 3.7, Chloride 105, Carbon Dioxide 27.0, Anion Gap 7, BUN 28 H, Creatinine 0.48 L, Est GFR (MDRD) Af Amer 223, Est GFR (MDRD) Non-Af 184, BUN/Creatinine Ratio 58.7 H, Glucose 171 H, Calcium 8.0 L, Phosphorus 2.3 L, Magnesium 1.8, Total Bilirubin 1.00 Rhythm: Sinus tachycardia Medical Necessity - Tobacco Use Smoking Status: Former smoker Assessment/Plan 1. Acute respiratory distress The patient continues with acute respiratory related issues. The etiology may be multifactorial. From a cardiovascular standpoint there are concerns about diminished LV systolic function and the possibility of acute on chronic systolic mediated CHF. The same time the patient has underlying pulmonary disease which could lead to findings of his pulmonary hypertension and subsequent adverse pulmonary effects. The patient has now also undergone a right-sided thoracentesis with a subsequent right-sided pneumothorax. He now has a right-sided chest tube which according to the [facility] nursing staff is going to be changed today to a larger diameter chest tube to assist with his pneumothorax. From a cardiac standpoint he does need to continue to be monitored. He needs continued input from internal medicine as well as pulmonology. From a cardiac standpoint he will continue noninvasive evaluation and care. This will include medical management including diuretic therapy. Hopefully this will help his volume status which will help his underlying pulmonary disease process. 2. Acute on chronic systolic mediated CHF The patient appears to have evidence of diminished LV systolic function. This could lead to acute on chronic systolic mediated CHF. At the present time he will continue noninvasive evaluation and conservative medical management. This will include diuretic therapy. His other medications can be adjusted as needed. 3. Cardiomyopathy He does have diminished LV systolic function based upon his echocardiographic findings. It is unclear at this time whether he has a history of underlying CAD. His echocardiographic findings are as noted. At the moment he will continue medical management and support. 4. CAD The patient states he has a history of open heart surgery. He does not appear to demonstrate obvious physical examination findings or radiologic findings. He does have an indeterminate troponin. This may be related to a type II event brought out by his acute respiratory distress related issue. At the moment he will continue to be monitored and he will continue medical therapy. He does not appear to be an ideal candidate for any invasive cardiovascular evaluation or care at this time. 5. Hyperlipidemia He should continue risk factor evaluation care as deemed appropriate. 6. Hypertension His blood pressure can be followed and his medications can be adjusted as needed. 7. Diabetes mellitus He will continue under care of internal medicine. 8. COPD He does have a history of underlying COPD. He will need continued input from internal medicine and pulmonology. 9. Pneumothorax He is status post right-sided thoracentesis with a right-sided pneumothorax. Again he is status post right-sided chest tube placement. 10. Metabolic encephalopathy The patient is disoriented. Based upon the [facility] staff this was thought to be metabolic related. He will need continued evaluation care by internal medicine. Overall, this appears to be a ill debilitated patient with multiple medical issues. From a cardiac standpoint it would be recommended he continue his noninvasive evaluation and conservative medical therapy as he does not appear to be an ideal candidate for any invasive cardiovascular evaluation or care at this time. Comment: The patient's case was discussed and reviewed with Dr. Mas. This note was generated using a voice recognition system and there may be incorrect words, spelling or punctuation that were not noted when reviewing the office note prior to saving.
[2019-11-09] MEDS: Morphine 2 MG/ML Syringe IV (09:52)
[2019-11-09] MEDS: Na Biphos/Potassium Phosphate PACKET 1 PACKET GT ×3 (09:53→22:13)
[2019-11-09] MEDS: Carvedilol 6.25 MG Tablet PO ×2 (09:53→22:13)
[2019-11-09] MEDS: Menthol/Lanolin/Calamine/Znox 113 GM Tube 1 APPLIC TOPICAL ×2 (09:53→22:13)
[2019-11-09] MEDS: Furosemide 40 MG/4 ML Vial IV ×2 (09:54→18:12)
[2019-11-09] MEDS: 0.9% Saline Lock 10 ML Syringe IV ×2 (10:04→18:17)
--- NOTE | 2019-11-09 11:00 | PN_ITS ---
<Jose Rangel - Last Filed: 11/09/19 11:00> Patient Problems: Active and Suspected Problems (Last Reviewed 11/05/19 @ 01:[address] Adriano Benton MD) Cardiomyopathy (Acute) Pneumothorax on right (Acute) Pneumothorax, right (Acute) Reason for Visit: pt with increased work of breathing, accessory breathing, SOB, chest pain. He appears more confused today. Intermittently answering questions. is insistent that she had a conversation with him twice about his desires and that he and she want to follow his wishes which are to keep fighting and do everything possible except intubation, including placing a larger bore chest tube today for pneumothorax. Vitals/I&O's: Vital Signs Temp Pulse Resp BP Pulse Ox 97.8 F 138 H 38 H 159/86 H 91 11/09/19 10:00 11/09/19 10:00 11/09/19 10:00 11/09/19 10:00 11/09/19 10:30 Oxygen Flow Rate (L/min) [3] 12 Oxygen Flow Rate (L/min) [2] 12 Oxygen Flow Rate (L/min) [1 ( 12 Initial Baseline)] Oxygen Flow Rate (L/min) 15 Oxygen Delivery Method [3] Nasal Cannula Oxygen Delivery Method [2] Nasal Cannula Oxygen Delivery Method [1 ( Nasal Cannula Initial Baseline)] Oxygen Delivery Method Non-Rebreather Weight: 128 lb 8.472 oz Body Mass Index (BMI) 20.7 Intake and Output for Last 24 Hours 11/07/19 11/08/19 11/09/19 23:59 23:59 23:59 Intake Total 2606.40 / 2606.40 2762.8 / 2762.8 240 / 240 Output Total 875 / 875 1025 / 1025 25 / 25 Balance 1731.40 / 1731.40 1737.8 / 1737.8 215 / 215 General: Alert, Cooperative, Confused, - - cachectic HEENT: Atraumatic, PERRLA, EOMI, Normocephalic Neck: Supple, No JVD, Negative Carotid Bruits Lungs: Clear to auscultation, Diminished - severely, Short of Breath, Tachypneic, Using Accessory Muscles Cardiovascular: No murmurs, Tachycardic Abdomen: Soft, Hypoactive Bowel Sounds, Tender - diffusely Extremities: No edema, Capillary Refill Less than 3 Seconds Skin: No rashes, No breakdown Musculoskeletal: No Tenderness to Palpation of Joints or Extremities Neurological: Cranial nerves II-XII grossly intact Psych/Mental Status: Anxious Microbiology Past 72 Hours 11/08/19 15:14 Fluid - Thoracentesis Fluid Gram Stain - Final 11/08/19 15:14 Fluid - Thoracentesis Fluid Body Fluid Culture - Preliminary No growth-Final to follow 11/04/19 23:25 Blood Culture (Wb) - Right Hand Blood Culture - Preliminary No growth in 48 hours. 11/04/19 22:15 Blood Culture (Wb) - Pic Blood Culture - Preliminary No growth in 48 hours. 11/04/19 22:35 Urine, Catheterized Urine Culture - Final Culture exhibits no growth. Laboratory Results 11/08/19 09:00: MRSA (PCR) Negative 11/08/19 10:46: Procalcitonin 0.88 H 11/08/19 10:46: Lactate Dehydrogenase 528 H, Total Protein 5.0 L, Globulin 3.3, Albumin/Globulin Ratio 0.5 L 11/08/19 15:14: Fluid Glucose 183 H, Fluid Total Protein 0.9, Fluid LDH 194 11/08/19 15:14: Fluid pH Pending 11/08/19 15:14: Miscellaneous Cytology Pending 11/08/19 15:14: Fluid Source THORACENTESIS, Fluid Color YELLOW, Fluid Appearance CLEAR, Fluid WBC 0.207, Fluid RBC 88, Fluid Tot Cell Count 0.227, Fld Polynuclear WBCs # 0.128, Fld Polynuclear WBCs % 61.8, Fluid Mononuclear WBCs 0.079, Fld Mononuclear WBCs % 38.2, Fluid Neutrophils 67, Fluid Lymphocytes 18, Fluid Monocytes 3, Fld Mesothelial Cells 12, Fl Pathologist Comment May follow, Fluid Comment 2 SEE COMMENT 11/08/19 17:08: POC Glucose 117 H 11/08/19 23:41: POC Glucose 160 H 11/09/19 05:20: WBC 5.2, RBC 3.80 L, Hgb 12.1 L, Hct 37.2 L, MCV 97.9 H, MCH 31.8, MCHC 32.5, RDW Std Deviation 51.1 H, RDW Coeff of Xenia 14.6, Plt Count 428, MPV 12.8 H, Neut % (Auto) Not Reportable, Absolute Neuts (auto) 3.5, Absolute Lymphs (auto) 0.68 L, Total Counted 100, Neutrophils % (Manual) 58, Band Neutrophils % 10 H, Lymphocytes % (Manual) 13 L, Monocytes % (Manual) 11 H, Eosinophils % (Manual) 3, Metamyelocytes % 4 H, Myelocytes % 1 H, Differential Comment , Diff Path Review November, Platelet Estimate ADEQUATE 11/09/19 05:20: Sodium 139, Potassium 3.7, Chloride 105, Carbon Dioxide 27.0, Anion Gap 7, BUN 28 H, Creatinine 0.48 L, Estim Creat Clear Calc 55.68, Est GFR (MDRD) Af Amer 223, Est GFR (MDRD) Non-Af 184, BUN/Creatinine Ratio 58.7 H, Glucose 171 H, Calcium 8.0 L, Phosphorus 2.3 L, Magnesium 1.8, Total Bilirubin 1.00, AST 41 H, ALT 32, Alkaline Phosphatase 139 H, Total Protein 6.1 L, Albumin 1.6 L, Globulin 4.5 H, Albumin/Globulin Ratio 0.4 L 11/09/19 05:51: POC Glucose 189 H Current Medications Acetaminophen (Tylenol) 650 mg RECTAL Q4H PRN PRN PRN Reason: Pain Score 1-10/Temp > 100.7 F Last Admin: 11/08/19 18:18 Dose: 650 mg Documented by: Albuterol/Ipratropium (Duoneb) 3 ml INHALATION Q6HWA.RT [facility] Last Admin: 11/09/19 06:55 Dose: Not Given Documented by: Aspirin (Aspirin, Baby) 81 mg GT DAILY@0800 [facility] Calamine/Phenol (Calmoseptine Ointment) 1 applic TOPICAL BID [facility]; Protocol Last Admin: 11/09/19 09:53 Dose: 1 applicatio Documented by: Carvedilol (Coreg) 6.25 mg PO BID [facility] Last Admin: 11/09/19 09:53 Dose: 6.25 mg Documented by: Dextrose (D50w Syringe) 0 gm IV X1 PRN; Protocol PRN Reason: Hypoglycemia Furosemide (Lasix) 40 mg IV BID@1000,1800 [facility] Last Admin: 11/09/19 09:54 Dose: 40 mg Documented by: Glucagon () 1 mg IM .X1 PRN PRN Reason: Hypoglycemia Hydralazine HCl (Apresoline) 10 mg PO TID [facility] Last Admin: 11/09/19 05:52 Dose: 10 mg Documented by: Sodium Chloride () 250 mls @ 15 mls/hr IV .[id number] PRN PRN Reason: Saline Flush Sodium Chloride () 250 mls @ 15 mls/hr IV .[id number] PRN PRN Reason: Additional IVPB Infusion Meropenem 1 gm/ Sodium (Chloride) 120 mls @ 33 mls/hr IV Q8 [facility] Last Infusion: 11/09/19 09:38 Dose: Infused Documented by: Multivitamins 10 ml/ Chromium/Copper/Manganese/Seleni/Zn 1 ml/ Folic Acid 1 mg/ Amino Acids/Electrolytes 2,011 mls @ 84 mls/hr IV .[id number] [facility] Stop: 11/09/19 15:48 Last Admin: 11/08/19 15:25 Dose: 84 mls/hr Documented by: Enteral Nutritional Formula (Vital Af 1.2 Arun Liquid) 1,000 mls @ 15 mls/hr GT .Q48H [facility] Last Admin: 11/08/19 17:25 Dose: 15 mls/hr Documented by: Insulin Human Lispro (Humalog Kwikpen (Bkc)) 0 unit SC Q6 [facility]; Protocol Last Admin: 11/09/19 05:52 Dose: 1 u Documented by: Isosorbide Dinitrate (Isordil) 10 mg PO TID [facility] Last Admin: 11/09/19 05:52 Dose: 10 mg Documented by: Morphine Sulfate () 1 mg IV Q3H PRN PRN PRN Reason: Abdominal pain 6-1010 Last Admin: 11/09/19 05:45 Dose: 1 mg Documented by: Ondansetron HCl (Zofran) 4 mg IV Q8H PRN PRN PRN Reason: NAUSEA/VOMITING Potassium Phos/Sodium Phos (Neutra-Phos Packet) 1 packet GT TID [facility] Stop: 11/09/19 22:01 Last Admin: 11/09/19 09:53 Dose: 1 packet Documented by: Sodium Chloride () 10 - 40 ml IV UD PRN PRN Reason: SALINE FLUSH Last Admin: 11/09/19 10:04 Dose: 20 ml Documented by: STROKE Vital Signs/Narrative: Vital Signs Temp Pulse Resp BP Pulse Ox 11/09/19 10:30 91 11/09/19 10:00 97.8 F 138 H 38 H 159/86 H 90 11/09/19 09:00 97.8 F 139 H 37 H 156/85 H 90 11/09/19 08:00 97.8 F 144 H 40 H 122/73 H 91 Medical Necessity - Tobacco Use Smoking Status: Former smoker Assessment/Plan All Active Problems (Last Reviewed 11/05/19 @ 01:[address] Adriano Benton MD) Cardiomyopathy (Acute) Pneumothorax on right (Acute) Pneumothorax, right (Acute) Acute on chronic systolic (congestive) heart failure (Acute) Severe sepsis (Acute) 1. Acute hypoxic respiratory failure, acute metabolic encephalopathy 2/2 Severe sepsis 2/2 possible HCAP, acute on chronic systolic CHF - -s/p thora 990cc drained, pulm following, cultures pending. -continue robert -pneumothorax post thora. worsening resp status. no improvement on CXR - Dr. Willson to place -Pts states that she had a clear conversation with her twice today about his wishes and that he wants everything done except no intubation including a larger chest tube placement. -Continue lasix -persistent tachy, coreg up -on 15lpm NC sats at 90% -No bipap due to pneumo 2. s/p PEG, 2/2 dysphagia - remains NPO. -continue q6h insulin. -logistics assistant consult. -TPN transitioning to PEG feeding only. -Replace Lytes. 3. elevated trop, hx CAD - cardiology following. 4. Severe protein calorie malnutrition - logistics assistant recommendations for nutritional needs 5. Emphysema, COPD - no acute exacerbation - continue aerosols. defer steroids. DVT ppx: lovenox DC planning: prognosis remains poor. chest tube change today. Conversation with and patient as above, present parties also included Dr. Mas, Dr. Willson, RN Christelle, and myself with pt and . This patient was seen by Jose Rangel PA-C under the supervision of Dr. Mas. <Kvng Mas - Last Filed: 11/09/19 16:08> Objective: Patient is awake but lethargic. Planing of severe pain and asking for more pain medications. Discussed with the surgeon and patient's . Patient has persistent air leak on pigtail chest tube catheter. High risk for percutaneous chest tube explained to the patient by me and surgeon but he still patient's wanted large bore chest tube. On exam General: Lethargic, intermittent confusion and disorientation. HEENT: Atraumatic, PERRLA, EOMI, Normocephalic Neck: Supple Lungs: Air entry severely diminished. Patient had thoracocentesis and then pneumothorax. Persistent air leak from pigtail catheter. Wide bore chest tube percutaneous inserted on 11/09/2019. Air leak continued. Patient continues to be Short of Breath, Tachypneic, Using Accessory Muscles Cardiovascular: Normal S1, Normal S2, No murmurs, Tachycardic Abdomen: Bowel Sounds Present, Soft, Non Tender, Non-Distended, - Extremities: No edema, Capillary Refill Less than 3 Seconds Skin: No rashes Musculoskeletal: No Tenderness to Palpation of Joints or Extremities, Arthritic Changes Neurological: - - Drowsy and lethargic. Vitals/I&O's: Vital Signs Temp Pulse Resp BP Pulse Ox 97.8 F 118 H 24 H 111/65 99 11/09/19 12:00 11/09/19 14:59 11/09/19 13:20 11/09/19 14:59 11/09/19 13:20 Oxygen Flow Rate (L/min) [3] 12 Oxygen Flow Rate (L/min) [2] 12 Oxygen Flow Rate (L/min) [1 ( 12 Initial Baseline)] Oxygen Flow Rate (L/min) 15 Oxygen Delivery Method [3] Nasal Cannula Oxygen Delivery Method [2] Nasal Cannula Oxygen Delivery Method [1 ( Nasal Cannula Initial Baseline)] Oxygen Delivery Method Non-Rebreather Weight: 128 lb 8.472 oz Body Mass Index (BMI) 20.7 Intake and Output for Last 24 Hours 11/07/19 11/08/19 11/09/19 23:59 23:59 23:59 Intake Total 2606.40 / 2606.40 2762.8 / 2762.8 344 / 344 Output Total 875 / 875 1025 / 1025 525 / 525 Balance 1731.40 / 1731.40 1737.8 / 1737.8 -181 / -181 Microbiology Past 72 Hours 11/08/19 15:14 Fluid - Thoracentesis Fluid Gram Stain - Final 11/08/19 15:14 Fluid - Thoracentesis Fluid Body Fluid Culture - Preliminary No growth-Final to follow 11/04/19 23:25 Blood Culture (Wb) - Right Hand Blood Culture - Preliminary No growth in 48 hours. 11/04/19 22:15 Blood Culture (Wb) - Pic Blood Culture - Preliminary No growth in 48 hours. 11/04/19 22:35 Urine, Catheterized Urine Culture - Final Culture exhibits no growth. Laboratory Results 11/08/19 15:14: Fluid Glucose 183 H, Fluid Total Protein 0.9, Fluid LDH 194 11/08/19 15:14: Fluid Source THORACENTESIS, Fluid Color YELLOW, Fluid Appearance CLEAR, Fluid WBC 0.207, Fluid RBC 88, Fluid Tot Cell Count 0.227, Fld Polynuclear WBCs # 0.128, Fld Polynuclear WBCs % 61.8, Fluid Mononuclear WBCs 0.079, Fld Mononuclear WBCs % 38.2, Fluid Neutrophils 67, Fluid Lymphocytes 18, Fluid Monocytes 3, Fld Mesothelial Cells 12, Fl Pathologist Comment Reviewed, Fluid Comment 2 SEE COMMENT 11/08/19 17:08: POC Glucose 117 H 11/08/19 23:41: POC Glucose 160 H 11/09/19 05:20: WBC 5.2, RBC 3.80 L, Hgb 12.1 L, Hct 37.2 L, MCV 97.9 H, MCH 31.8, MCHC 32.5, RDW Std Deviation 51.1 H, RDW Coeff of Xenia 14.6, Plt Count 428, MPV 12.8 H, Neut % (Auto) Not Reportable, Absolute Neuts (auto) 3.5, Absolute Lymphs (auto) 0.68 L, Total Counted 100, Neutrophils % (Manual) 58, Band Neutrophils % 10 H, Lymphocytes % (Manual) 13 L, Monocytes % (Manual) 11 H, Eosinophils % (Manual) 3, Metamyelocytes % 4 H, Myelocytes % 1 H, Differential Comment , Diff Path Review Reviewed, Platelet Estimate ADEQUATE 11/09/19 05:20: Sodium 139, Potassium 3.7, Chloride 105, Carbon Dioxide 27.0, Anion Gap 7, BUN 28 H, Creatinine 0.48 L, Estim Creat Clear Calc 55.68, Est GFR (MDRD) Af Amer 223, Est GFR (MDRD) Non-Af 184, BUN/Creatinine Ratio 58.7 H, Glucose 171 H, Calcium 8.0 L, Phosphorus 2.3 L, Magnesium 1.8, Total Bilirubin 1.00, AST 41 H, ALT 32, Alkaline Phosphatase 139 H, Total Protein 6.1 L, Albumin 1.6 L, Globulin 4.5 H, Albumin/Globulin Ratio 0.4 L 11/09/19 05:51: POC Glucose 189 H 11/09/19 11:46: POC Glucose 223 H Current Medications Acetaminophen (Tylenol) 650 mg RECTAL Q4H PRN PRN PRN Reason: Pain Score 1-10/Temp > 100.7 F Last Admin: 11/08/19 18:18 Dose: 650 mg Documented by: Albuterol/Ipratropium (Duoneb) 3 ml INHALATION Q6HWA.RT [facility] Last Admin: 11/09/19 13:20 Dose: 3 ml Documented by: Aspirin (Aspirin, Baby) 81 mg GT DAILY@0800 [facility] Calamine/Phenol (Calmoseptine Ointment) 1 applic TOPICAL BID [facility]; Protocol Last Admin: 11/09/19 09:53 Dose: 1 applicatio Documented by: Carvedilol (Coreg) 6.25 mg PO BID [facility] Last Admin: 11/09/19 09:53 Dose: 6.25 mg Documented by: Dextrose (D50w Syringe) 0 gm IV X1 PRN; Protocol PRN Reason: Hypoglycemia Furosemide (Lasix) 40 mg IV BID@1000,1800 [facility] Last Admin: 11/09/19 09:54 Dose: 40 mg Documented by: Glucagon () 1 mg IM .X1 PRN PRN Reason: Hypoglycemia Hydralazine HCl (Apresoline) 10 mg PO TID [facility] Last Admin: 11/09/19 14:59 Dose: 10 mg Documented by: Sodium Chloride () 250 mls @ 15 mls/hr IV .[id number] PRN PRN Reason: Saline Flush Sodium Chloride () 250 mls @ 15 mls/hr IV .[id number] PRN PRN Reason: Additional IVPB Infusion Meropenem 1 gm/ Sodium (Chloride) 120 mls @ 33 mls/hr IV Q8 [facility] Last Admin: 11/09/19 15:13 Dose: 33 mls/hr Documented by: Enteral Nutritional Formula (Vital Af 1.2 Arun Liquid) 1,000 mls @ 25 mls/hr GT .Q40H [facility] Last Admin: 11/08/19 17:25 Dose: 15 mls/hr Documented by: Multivitamins 10 ml/ Chromium/Copper/Manganese/Seleni/Zn 1 ml/ Folic Acid 1 mg/ Amino Acids/Electrolytes 2,011 mls @ 42 mls/hr IV .Q24H [facility] Stop: 11/10/19 15:47 Insulin Human Lispro (Humalog Kwikpen (Bkc)) 0 unit SC Q6 [facility]; Protocol Last Admin: 11/09/19 12:10 Dose: 2 u Documented by: Isosorbide Dinitrate (Isordil) 10 mg PO TID [facility] Last Admin: 11/09/19 14:59 Dose: 10 mg Documented by: Morphine Sulfate () 1 mg IV Q3H PRN PRN PRN Reason: Abdominal pain 6-10 Last Admin: 11/09/19 15:13 Dose: 1 mg Documented by: Ondansetron HCl (Zofran) 4 mg IV Q8H PRN PRN PRN Reason: NAUSEA/VOMITING Potassium Phos/Sodium Phos (Neutra-Phos Packet) 1 packet GT TID [facility] Stop: 11/09/19 22:01 Last Admin: 11/09/19 15:00 Dose: 1 packet Documented by: Sodium Chloride () 10 - 40 ml IV UD PRN PRN Reason: SALINE FLUSH Last Admin: 11/09/19 10:04 Dose: 20 ml Documented by: [facility] Vital Signs/Narrative: Vital Signs Temp Pulse Resp BP Pulse Ox 11/09/19 14:59 118 H 111/65 11/09/19 13:20 112 H 24 H 99 11/09/19 12:31 116 H 11/09/19 12:00 97.8 F 113 H 30 H 108/62 97 Assessment/Plan This patient was seen in conjunction with Jose MAGDALENO. I have independently interviewed and examined the patient and reviewed pertinent history, examination findings, laboratory and plan of management. I have reviewed the note and agree with the documented findings with the few additional points. In brief, patient is admitted for acute metabolic encephalopathy probably secondary to intra-abdominal infection: Patient had free air under diaphragm on prior imaging but repeat CT abdomen did not show it. Subsequently patient had PEG tube on last Thursday and then had tachycardia. Repeat CT with oral contrast was done which reported stable but no PEG tube seen. CT chest did not show PE but bilateral pleural effusion, right more than left with underlying infiltrate and atelectasis. Chronic fibrosis and cystic and bullous appearance of emphysematous disease. New infiltrate on right upper lobe. On IV cefepime. Vancomycin and Flagyl discontinued as patient did not had fever for last 3 days, blood cultures negative for more than 48 hours and urine culture negative. 11/07: Patient oxygen requirement went up. Continue to be tachycardic and tachypneic and short of breath. CT abdomen was repeated. Repeat CT shows no extravasation of oral contrast small stable amount of free extraluminal air adjacent to medial aspect of left lobe of the liver. PEG tube in inferior portion of the stomach. Patient had right-sided ultrasound-guided thoracocentesis and about 1000 mL of imtiaz-colored fluid removed. The fluid was sent for thoracocentesis. Lites criteria is suggestive of exudate as fluid LDH is more than two third of upper limit of serum LDH probably secondary to diuretic effect although clinically seems transudate. Subsequently patient was very short of breath and chest x-ray showed pneumothorax. Pigtail catheter placed. Repeat serial chest x-ray were done. Patient still has air leak but shows improvement of right apical pneumothorax. Tiny residual right apical pneumothorax. Surgeon talked to patient's and I was there. He agreed for compassionate visit of his prognosis is poor. Patient is DNR CC arrest with no intubation Pulmonary, cardiology and ID consult appreciated. Antibiotic changed to meropenem. IV cefepime discontinued 11/08: Goal of life discussed with the patient and his near the bedside along with surgeon Dr. Willson and SHARLA Garcia. As per , patient wants to go ahead for the percutaneous right bore chest tube although risk of persistent air leak, further respiratory status deterioration with tachypnea, hypoxia, bleeding and even explained. Patient had right-sided chest tube placed after removal of pigtail catheter. 500 cc of straw-colored fluid was also removed. Patient still has air leak. Chest x-ray reviewed and reported minimal residual right pneumothorax. Pleural fluid Gram stain shows no organism, full culture pending. No fever but tachycardia, tachypnea and severe hypoxia 100% nonrebreather. Prognosis poor. CODE STATUS remains same DNR CC arrest with no intubation. I have discussed my assessment with Jose MAGDALENO and orders have been reviewed. Total time of the visit including total time spent in counseling or coordination of care, (more than 50% of the total time, spent in obtaining medical information from nurses and other ancillary care providers), discussion with surgeon, oil program compliance specialist and funeral limousine driver and ID, review of labs and imaging is 30 minutes Inpatient E&M: [id number] [facility] L[facility]
--- NOTE | 2019-11-09 11:40 | RAD_ITS ---
STUDY: X-RAY CHEST REASON FOR EXAM: Male, 69 years old. CHEST TUBE PLACEMENT TECHNIQUE: Single AP portable view of the chest. COMPARISON: Comparison is made with prior examination done earlier in the day at 6:04 AM. FINDINGS: A large bore chest tube has been placed with the tip in the medial right lung apex. Minimal apical right pneumothorax. Stable dense fibrotic changes in the right lung. RAD/Chest 1 View (Portable) IMPRESSION: Status post placement of a large bore chest tube with the tip in the medial apical portion of the right lung with minimal residual right pneumothorax. Electronically Signed: Flaco Gale, at 13:37 EDT , Service support ,
--- NOTE | 2019-11-09 11:42 | NURSING ---
This RN spoke to patients Janee Bhandari at this time and updated her on the bedside chest tube procedure that Dr. Willson performed and completed. Janee asked if she could visit this afternoon, a time of 1500 was agreed upon for a quick bedside visit due to patients current status. No further needs voiced.
--- NOTE | 2019-11-09 11:48 | PN_ITS ---
Progress Note Patient had continued air leak this morning and suction was increased and repeat chest x-ray was performed which still showed pneumothorax. I was in the group discussion with the hospitalist and the patient's and she would like everything done. I discussed replacing a larger bore chest tube and she would like that procedure completed. I did discuss that this procedure may be futile and the lung may not heal and the air leak may continue but she understood and would like to place. I discussed the procedure in detail to the patient's as well as the risks of bleeding, infection, lung injury. She agreed to proceed. Dylon Willson MD Pager: [facility] [address] [place] [address], [address] [place] [address] Office: [facility] Vital Signs/Narrative: Vital Signs Temp Pulse Resp BP Pulse Ox 11/09/19 10:30 91 11/09/19 10:00 97.8 F 138 H 38 H 159/86 H 90 11/09/19 09:00 97.8 F 139 H 37 H 156/85 H 90 11/09/19 08:00 97.8 F 144 H 40 H 122/73 H 91
--- NOTE | 2019-11-09 11:49 | OP.PCM_ITS ---
Problem List (1) Pneumothorax, right Status: Acute Report of Operation Date of Procedure: 11/09/19 Pre-Operative Diagnosis: Right pneumothorax Post-Operative Diagnosis: Same Surgery/Procedure Performed:: Right chest tube placement Description of Procedure: The patient was prepped and draped in usual sterile fashion on the right side the chest and the side and procedure was confirmed with the staff in the room. Next the prior percutaneous chest tube was removed and the area in the right midaxillary line was injected with lidocaine and a small incision was made. Deeper lidocaine injection was performed. Dissection was carried through the intercostal muscles just superior to the rib into the pleural space and dilated. Tube was placed into the pleural space and advanced and sutured to the skin using 0 silk suture. The skin incision was closed with an interrupted 0 silk suture as well and Vaseline gauze was placed over the incision. It was connected to suction and there was a persistent air leak and an extra 500 cc of straw-colored fluid were removed. At the end of the procedure the patient still had an air leak and chest x-ray will be obtained. Patient tolerated the procedure well. Grafts/Implants Used: 28 [place] chest tube
[2019-11-09 11:50] LABS: Bedside Glucose 223 mg/dL (70-110)
--- NOTE | 2019-11-09 12:00 | NT.THERAPY_ITS ---
Nutrition Therapy Report - History Nutrition Services has been consulted to:: Manage parenteral nutrition, Manage enteral nutrition Current diet / nutrition support order:: NPO; TPN- 2L 5% AA/20% dextrose solution at 84mL/hour; Vital AF 1.2 via PEG at 15mL/hour - Anthropometric Measurements Height:: 5 ft 6 in Weight:: 58.3 kg Body Mass Index (BMI):: 20.7 - Relevant Labs Relevant Labs:: RBC 3.80 M/mm3 (4.6-6.2) L 11/09/19 05:20 Hgb 12.1 g/dL (13.0-16.5) L 11/09/19 05:20 Hct 37.2 % (40-54) L 11/09/19 05:20 MCV 97.9 fL (80-94) H 11/09/19 05:20 MCH 32.6 pg (27.0-32.0) H 11/08/19 04:46 RDW Std Deviation 51.1 fl (35.1-43.9) H 11/09/19 05:20 Plt Count 106 K/mm3 (150-450) L 11/06/19 06:40 MPV 12.8 fl (6.2-12.0) H 11/09/19 05:20 Neut % (Auto) 70.9 % (47-70) H 11/08/19 04:46 Lymph % (Auto) 11.9 % (19-41) L 11/08/19 04:46 Liberty % (Auto) 13.4 % (0-10) H 11/08/19 04:46 Eos % (Auto) 7.5 % (0-5) H 11/06/19 06:40 Absolute Lymphs (auto) 0.68 X10^3/uL (0.83-4.51) L 11/09/19 05:20 Band Neutrophils % 10 % (0-5) H 11/09/19 05:20 Lymphocytes % (Manual) 13 % (19-41) L 11/09/19 05:20 Monocytes % (Manual) 11 % (0-10) H 11/09/19 05:20 Metamyelocytes % 4 % (0-1) H 11/09/19 05:20 Myelocytes % 1 (0-0) H 11/09/19 05:20 PT 17.2 SECONDS (11.7-14.9) H 11/06/19 13:30 APTT 42.6 Seconds (24.1-36.2) H 11/06/19 19:48 D-Dimer Quant (PE/DVT) > 20.00 FEU/ug/m (0.27-0.49) H* 11/06/19 09:04 Sodium 134 mmol/L (136-145) L 11/05/19 03:00 Potassium 2.9 mmol/L (3.5-5.1) L 11/08/19 04:46 Chloride 108 mmol/L (98-107) H 11/07/19 04:38 Carbon Dioxide 19.0 mmol/L (21.0-32.0) L 11/05/19 03:00 Anion Gap 4 (5-15) L 11/06/19 06:40 BUN 28 mg/dL (7-18) H 11/09/19 05:20 Creatinine 0.48 mg/dL (0.70-1.30) L 11/09/19 05:20 BUN/Creatinine Ratio 58.7 RATIO (10-20) H 11/09/19 05:20 Glucose 171 mg/dL (74-106) H 11/09/19 05:20 Lactic Acid 2.1 mmol/L (0.4-1.9) H* 11/05/19 07:00 Calcium 8.0 mg/dL (8.5-10.1) L 11/09/19 05:20 Phosphorus 2.3 mg/dL (2.5-4.9) L 11/09/19 05:20 Total Bilirubin 1.30 mg/dL (0.20-1.00) H 11/06/19 06:40 Direct Bilirubin 1.31 mg/dL (0.00-0.30) H 11/05/19 05:58 AST 41 U/L (15-37) H 11/09/19 05:20 ALT 66 U/L (16-61) H 11/04/19 22:15 Alkaline Phosphatase 139 U/L (45-117) H 11/09/19 05:20 Lactate Dehydrogenase 528 U/L (87-241) H 11/08/19 10:46 Troponin I 0.144 ng/mL (<0.045) H 11/05/19 08:48 B-Natriuretic Peptide 2806.8 pg/mL (0-100) H 11/08/19 04:46 Total Protein 6.1 g/dL (6.4-8.2) L 11/09/19 05:20 Albumin 1.6 g/dL (3.2-5.0) L 11/09/19 05:20 Globulin 4.5 g/dL (2.2-4.2) H 11/09/19 05:20 Albumin/Globulin Ratio 0.4 RATIO (0.9-2.4) L 11/09/19 05:20 Procalcitonin 0.88 ng/mL (0.00-0.09) H 11/08/19 10:46 - Assessment Food / Nutrition-Related History:: Pt w/ thoracentesis yesterday. 990mL fluid removed. Required chest tube after procedure. Tube feeds initiated via PEG at 15mL/hour. No issues w/ tube feeds reported by nursing staff. Continues w/ TPN- 2L 5% AA/20% dextrose solution. Wt increase of 0.2 kg noted. Electrolytes replaced. Fluid status concerning- continues on lasix. - Nutrition Diagnosis Problem / Etiology / Signs & Symptoms (PES):: Severe malnutrition in the context of acute illness related to inadequate oral intake d/t mental status, dysphagia as evidenced by 9.4% wt loss x ~3 ? weeks, moderate loss of muscle & subcutaneous fat Evidence of Malnutrition Exists:: Yes Severe PCM:: Acute Illness - Nutrition Intervention Nutrition Prescription:: 7220-6969 calories/day, 60-70 g protein/day - Food / Nutrient Delivery Interventions Summary of nutrition intervention:: Will continue to wean TPN w/ advancement of enteral tube feeds. Will be more aggressive in weaning TPN considering fluid status. Ideally, TPN is tapered when tube feeds provide 33-50% of estimated nutrient requirements. Will increase enteral feeds to 25mL/hour, which will provide 720 calories, 45 g protein over 24 hours which will meet ~45% pt's calorie needs and 64% protein needs. Will decrease TPN to 1L 5% AA/20% dextrose to provide an additional 880 calories, 50 g protein. Nutrition support ordered as / adjusted to:: 1L 5%AA/20% dextrose solution w/ electrolytes, no famotidine or insulin per provider order. TPN will provide 880 calories, 50 g protein. Advance rate of enteral feeds as tolerated to 25mL/hour w/ 20mL flush every 4 hours to provide 720 calories, 45 g protein, and 606mL fluid over 24 hours. Nutrition education provided?: No - MNT Monitoring Further MNT monitoring and evaluation required?: Yes MNT Follow-up in:: 1-2 days
[2019-11-09 12:01] LABS: Pathologist Comment/Body Fluid Reviewed
[2019-11-09 12:04] LABS: Pathologist Review Reviewed
[2019-11-09] MEDS: Ipratropium/Albuterol Sulfate 3 ML AMPUL.NEB INHALATION ×2 (13:20→19:11)
--- NOTE | 2019-11-09 13:54 | CPS ---
pt decreased to 15 lpm....93%. nurse aware of change
--- NOTE | 2019-11-09 17:26 | NURSING ---
This charge nurse assisted Dr Steele with the bedside removal of chest tube and replacement with a large bore 28 chest tube. Patient toelrated well. Approximately 500ml of initial return. Air leak remains.
--- NOTE | 2019-11-09 17:38 | PN.ID_ITS ---
Patient Problems: Active and Suspected Problems (Last Reviewed 11/05/19 @ 01:[address] Adriano Benton MD) Cardiomyopathy (Acute) Pneumothorax on right (Acute) Pneumothorax, right (Acute) Subjective: Chest tube put in, feeling better, no fever, more awake - Physical Exam Vitals/I&O's: Vital Signs Temp Pulse Resp BP Pulse Ox 97.9 F 118 H 24 H 118/84 H 90 11/09/19 17:00 11/09/19 17:00 11/09/19 17:00 11/09/19 17:00 11/09/19 17:00 Oxygen Flow Rate (L/min) [3] 12 Oxygen Flow Rate (L/min) [2] 12 Oxygen Flow Rate (L/min) [1 ( 12 Initial Baseline)] Oxygen Flow Rate (L/min) 15 Oxygen Delivery Method [3] Nasal Cannula Oxygen Delivery Method [2] Nasal Cannula Oxygen Delivery Method [1 ( Nasal Cannula Initial Baseline)] Oxygen Delivery Method Nasal Cannula Weight: 58.3 kg Body Mass Index (BMI) 20.7 Intake and Output for Last 24 Hours 11/07/19 11/08/19 11/09/19 23:59 23:59 23:59 Intake Total 2606.40 / 2606.40 2762.8 / 2762.8 2355 / 2355 Output Total 875 / 875 1025 / 1025 525 / 525 Balance 1731.40 / 1731.40 1737.8 / 1737.8 1830 / 1830 General: Alert, Cooperative, No apparent distress Lungs: Diminished Cardiovascular: Tachycardic Abdomen: Soft, Non Tender, Non-Distended Skin: No rashes Microbiology Past 72 Hours 11/08/19 15:14 Fluid - Thoracentesis Fluid Gram Stain - Final 11/08/19 15:14 Fluid - Thoracentesis Fluid Body Fluid Culture - Preliminary No growth-Final to follow 11/04/19 23:25 Blood Culture (Wb) - Right Hand Blood Culture - Preliminary No growth in 48 hours. 11/04/19 22:15 Blood Culture (Wb) - Pic Blood Culture - Preliminary No growth in 48 hours. 11/04/19 22:35 Urine, Catheterized Urine Culture - Final Culture exhibits no growth. Laboratory Results 11/08/19 15:14: Fl Pathologist Comment Reviewed 11/08/19 23:41: POC Glucose 160 H 11/09/19 05:20: WBC 5.2, RBC 3.80 L, Hgb 12.1 L, Hct 37.2 L, MCV 97.9 H, MCH 31.8, MCHC 32.5, RDW Std Deviation 51.1 H, RDW Coeff of Xenia 14.6, Plt Count 428, MPV 12.8 H, Neut % (Auto) Not Reportable, Absolute Neuts (auto) 3.5, Absolute Lymphs (auto) 0.68 L, Total Counted 100, Neutrophils % (Manual) 58, Band Neut rophils % 10 H, Lymphocytes % (Manual) 13 L, Monocytes % (Manual) 11 H, Eosinophils % (Manual) 3, Metamyelocytes % 4 H, Myelocytes % 1 H, Differential Comment , Diff Path Review Reviewed, Platelet Estimate ADEQUATE 11/09/19 05:20: Sodium 139, Potassium 3.7, Chloride 105, Carbon Dioxide 27.0, Anion Gap 7, BUN 28 H, Creatinine 0.48 L, Estim Creat Clear Calc 55.68, Est GFR (MDRD) Af Amer 223, Est GFR (MDRD) Non-Af 184, BUN/Creatinine Ratio 58.7 H, Glucose 171 H, Calcium 8.0 L, Phosphorus 2.3 L, Magnesium 1.8, Total Bilirubin 1.00, AST 41 H, ALT 32, Alkaline Phosphatase 139 H, Total Protein 6.1 L, Albumin 1.6 L, Globulin 4.5 H, Albumin/Globulin Ratio 0.4 L 11/09/19 05:51: POC Glucose 189 H 11/09/19 11:46: POC Glucose 223 H Current Medications Acetaminophen (Tylenol) 650 mg RECTAL Q4H PRN PRN PRN Reason: Pain Score 1-10/Temp > 100.7 F Last Admin: 11/08/19 18:18 Dose: 650 mg Documented by: Albuterol/Ipratropium (Duoneb) 3 ml INHALATION Q6HWA.RT [facility] Last Admin: 11/09/19 13:20 Dose: 3 ml Documented by: Aspirin (Aspirin, Baby) 81 mg GT DAILY@0800 [facility] Calamine/Phenol (Calmoseptine Ointment) 1 applic TOPICAL BID [facility]; Protocol Last Admin: 11/09/19 09:53 Dose: 1 applicatio Documented by: Carvedilol (Coreg) 6.25 mg PO BID COUNTS INCLUDE 234 BEDS AT THE [facility] Last Admin: 11/09/19 09:53 Dose: 6.25 mg Documented by: Dextrose (D50w Syringe) 0 gm IV X1 PRN; Protocol PRN Reason: Hypoglycemia Furosemide (Lasix) 40 mg IV BID@1000,1800 COUNTS INCLUDE 234 BEDS AT THE [facility] Last Admin: 11/09/19 09:54 Dose: 40 mg Documented by: Glucagon () 1 mg IM .X1 PRN PRN Reason: Hypoglycemia Hydralazine HCl (Apresoline) 10 mg PO TID COUNTS INCLUDE 234 BEDS AT THE [facility] Last Admin: 11/09/19 14:59 Dose: 10 mg Documented by: Sodium Chloride () 250 mls @ 15 mls/hr IV .[id number] PRN PRN Reason: Saline Flush Sodium Chloride () 250 mls @ 15 mls/hr IV .[id number] PRN PRN Reason: Additional IVPB Infusion Meropenem 1 gm/ Sodium (Chloride) 120 mls @ 33 mls/hr IV Q8 COUNTS INCLUDE 234 BEDS AT THE [facility] Last Admin: 11/09/19 15:13 Dose: 33 mls/hr Documented by: Enteral Nutritional Formula (Vital Af 1.2 Arun Liquid) 1,000 mls @ 25 mls/hr GT .Q40H COUNTS INCLUDE 234 BEDS AT THE [facility] Last Admin: 11/08/19 17:25 Dose: 15 mls/hr Documented by: Multivitamins 10 ml/ Chromium/Copper/Manganese/Seleni/Zn 1 ml/ Folic Acid 1 mg/ Amino Acids/Electrolytes 2,011 mls @ 42 mls/hr IV .Q24H COUNTS INCLUDE 234 BEDS AT THE [facility] Stop: 11/10/19 15:47 Last Admin: 11/09/19 16:20 Dose: 42 mls/hr Documented by: Insulin Human Lispro (Humalog Kwikpen (Bkc)) 0 unit SC Q6 COUNTS INCLUDE 234 BEDS AT THE [facility]; Protocol Last Admin: 11/09/19 12:10 Dose: 2 u Documented by: Isosorbide Dinitrate (Isordil) 10 mg PO TID COUNTS INCLUDE 234 BEDS AT THE [facility] Last Admin: 11/09/19 14:59 Dose: 10 mg Documented by: Morphine Sulfate () 1 mg IV Q3H PRN PRN PRN Reason: Abdominal pain 6-10/10 Last Admin: 11/09/19 15:13 Dose: 1 mg Documented by: Ondansetron HCl (Zofran) 4 mg IV Q8H PRN PRN PRN Reason: NAUSEA/VOMITING Potassium Phos/Sodium Phos (Neutra-Phos Packet) 1 packet GT TID [facility] Stop: 11/09/19 22:01 Last Admin: 11/09/19 15:00 Dose: 1 packet Documented by: Sodium Chloride () 10 - 40 ml IV UD PRN PRN Reason: SALINE FLUSH Last Admin: 11/09/19 10:04 Dose: 20 ml Documented by: Medical Necessity - Tobacco Use Smoking Status: Former smoker Route of nutrition/ use of supplements: [] Nutritional Intake: [] IV Site: [] Moreira Catheter: [] - Assessment/Plan Antibiotics: [] Assessment/Plan: [] Active and Suspected Problems (Last Reviewed 11/05/19 @ 01:[address] Adriano Benton MD) Cardiomyopathy (Acute) Pneumothorax on right (Acute) Fever, pneumonia, pleural effusion - last admit concern that cefepime contributed to his encephalopathy. Mental status improved, on meropenem since 11/07. Will follow
[2019-11-09 18:16] LABS: Bedside Glucose 109 mg/dL (70-110)
[2019-11-09 23:56] LABS: Bedside Glucose 132 mg/dL (70-110)
[2019-11-10] VITALS (29 sets, daily range): BP systolic 94–131; BP diastolic 55–74; PULSE 109–139; RESP 19–31; TEMP 36.4–37.4; O2SAT 87–100; BMI 19.1
[2019-11-10] MEDS: Morphine 2 MG/ML Syringe 1 MG IV ×2 (02:50→05:45)
--- NOTE | 2019-11-10 05:10 | RAD_ITS ---
STUDY: X-RAY CHEST REASON FOR EXAM: Male, 69 years old. Follow up right sided chest tube TECHNIQUE: Single AP portable view of the chest. COMPARISON: 11.09.2019 chest x-ray FINDINGS: There is a right-sided chest tube the tip is at the right apex. There is a pattern of emphysematous change and interstitial thickening throughout the lungs. There is a left-sided PICC line the tip is in the atrial caval junction. The opacified appearance of the right upper lobe. There is no visualized pneumothorax. This poor visualization of the left hemidiaphragm. There is moderate cardiac enlargement. Normal mediastinum and taco. Normal visualized pulmonary arteries. There is atherosclerotic calcification of the aortic arch with tortuosity. There are diffuse degenerative changes of the visualized thoracic spine. Normal visualized ribs, clavicles, and shoulders. There is no demonstrated abnormality of the visualized soft tissue structures of the upper abdomen. RAD/Chest 1 View (Portable) IMPRESSION: Findings suggestive of for left pleural effusion and/or consolidation. Right upper lobe infiltrate. Right-sided chest tube tip in the right apex. No visualized pneumothorax. There is emphysema and chronic obstructive pulmonary disease. Electronically Signed: Mirela Mcallister MD at 6:06 EDT Tel , Service support ,
[2019-11-10] MEDS: Isosorbide DN 10 MG Tablet PO ×2 (05:52→14:23)
[2019-11-10] MEDS: hydrALAZINE 10 MG Tablet PO ×2 (05:53→14:23)
[2019-11-10 06:06] LABS: Bedside Glucose 141 mg/dL (70-110)
[2019-11-10 06:24] LABS: Hematocrit 35.9 % (40-54); Hemoglobin 11.5 g/dL (13.0-16.5); Mean Corpuscular Hgb 32.2 pg (27.0-32.0); Mean Corpuscular Volume 100.6 fL (80-94); Mean Platelet Vol. 12.7 fl (6.2-12.0); POSITIVE COUNT YES; POSITIVE MORPHOLOGY YES; Platelet Count 424 K/mm3 (150-450); RBC Distribution Width CV 14.8 % (11.6-14.6); RBC Distribution Width SD 53.1 fl (35.1-43.9); Red Blood Count 3.57 M/mm3 (4.6-6.2); White Blood Count 6.8 K/mm3 (4.4-11.0)
[2019-11-10 06:54] LABS: Differential Indicated MANUAL DIFF
[2019-11-10 06:59] LABS: ALB/GLOB Ratio 0.4 RATIO (0.9-2.4); AST(SGOT) 43 U/L (15-37); Alanine Aminotransfer ALT/SGPT 27 U/L (16-61); Albumin, Serum 1.4 g/dL (3.2-5.0); Alkaline Phosphatase 134 U/L (45-117); Anion Gap 4 (5-15); BUN 31 mg/dL (7-18); BUN/Creat Ratio 62.8 RATIO (10-20); Calcium,Total 7.9 mg/dL (8.5-10.1); Chloride 107 mmol/L (98-107); Creatinine, Serum 0.49 mg/dL (0.70-1.30); EST Glomerular Filtration Rate 177 mL/min (>60); Est Glom Filt Rate - Afr Amer 214 mL/min (>60); Estimated Creatinine Clearance 51.56 ml/min; Globulin 3.9 g/dL (2.2-4.2); Glucose 141 mg/dL (74-106); Magnesium 2.2 mg/dL (1.6-2.6); Phosphorus 2.5 mg/dL (2.5-4.9); Potassium 3.8 mmol/L (3.5-5.1); Protein, Total 5.3 g/dL (6.4-8.2); Sodium Level 143 mmol/L (136-145)
[2019-11-10 08:15] LABS: Eosinophil 3 % (0-5); Lymphocyte 16 % (19-41); Monocyte 7 % (0-10); Myelocyte 2 (0-0); Neutrophil-Band 4 % (0-5); Neutrophil-Segmented 68 % (47-70); Total Cells Counted 100 (MANUAL DIFF)
[2019-11-10 08:16] LABS: Platelet Estimate ADEQUATE (ADEQ); Red Cell Morphology NORM C+C NORMAL (NORM C&C)
[2019-11-10 08:18] LABS: Absolute Neutrophil Count 4.9 X10^3/uL (2.0-7.7)
[2019-11-10 08:19] LABS: Absolute Lymphocyte Count 1.09 X10^3/uL (0.83-4.51)
[2019-11-10] MEDS: Carvedilol 6.25 MG Tablet PO (08:24)
[2019-11-10] MEDS: Aspirin 81 MG TAB.CHEW GT (08:24)
[2019-11-10] MEDS: Menthol/Lanolin/Calamine/Znox 113 GM Tube 1 APPLIC TOPICAL ×2 (08:24→21:46)
[2019-11-10] MEDS: 0.9% Saline Lock 10 ML Syringe IV ×2 (08:54→17:19)
[2019-11-10] MEDS: Furosemide 40 MG/4 ML Vial IV ×2 (08:54→17:19)
[2019-11-10] MEDS: Morphine 2 MG/ML Syringe IV ×3 (09:03→17:18)
--- NOTE | 2019-11-10 09:52 | PCM.PN.SRG ---
Patient Problems: Active and Suspected Problems (Last Reviewed 11/05/19 @ 01:[address] Adriano Benton MD) Cardiomyopathy (Acute) Pneumothorax on right (Acute) Pneumothorax, right (Acute) Subjective: No issues overnight - Physical Exam Vitals/I&O's: Vital Signs Temp Pulse Resp BP Pulse Ox 99.3 F H 124 H 26 H 119/70 95 11/10/19 08:00 11/10/19 08:00 11/10/19 08:00 11/10/19 08:00 11/10/19 08:00 Oxygen Flow Rate (L/min) [3] 12 Oxygen Flow Rate (L/min) [2] 12 Oxygen Flow Rate (L/min) [1 ( 12 Initial Baseline)] Oxygen Flow Rate (L/min) 15 Oxygen Delivery Method [3] Nasal Cannula Oxygen Delivery Method [2] Nasal Cannula Oxygen Delivery Method [1 ( Nasal Cannula Initial Baseline)] Oxygen Delivery Method Nasal Cannula Weight: 118 lb 9.739 oz Body Mass Index (BMI) 20.7 Intake and Output for Last 24 Hours 11/08/19 11/09/19 11/10/19 23:59 23:59 23:59 Intake Total 2762.8 / 2762.8 2475 / 2475 120 / 120 Output Total 1025 / 1025 635 / 635 10 / 10 Balance 1737.8 / 1737.8 1840 / 1840 110 / 110 General: Confused, Disoriented Lungs: Short of Breath Cardiovascular: Tachycardic Abdomen: Soft, Non Tender, Non-Distended Microbiology Past 72 Hours 11/08/19 15:14 Fluid - Thoracentesis Fluid Gram Stain - Final 11/08/19 15:14 Fluid - Thoracentesis Fluid Body Fluid Culture - Preliminary No growth-Final to follow 11/08/19 15:14 Fluid - Thoracentesis Fluid Anaerobic Culture - Preliminary No growth in 48 hours. 11/04/19 23:25 Blood Culture (Wb) - Right Hand Blood Culture - Final No growth in 5 days. 11/04/19 22:15 Blood Culture (Wb) - Pic Blood Culture - Final No growth in 5 days. 11/04/19 22:35 Urine, Catheterized Urine Culture - Final Culture exhibits no growth. Laboratory Results 11/08/19 15:14: Fl Pathologist Comment Reviewed 11/09/19 05:20: Diff Path Review Reviewed 11/09/19 11:46: POC Glucose 223 H 11/09/19 18:10: POC Glucose 109 11/09/19 23:49: POC Glucose 132 H 11/10/19 05:51: POC Glucose 141 H 11/10/19 06:15: WBC 6.8, RBC 3.57 L, Hgb 11.5 L, Hct 35.9 L, MCV 100.6 H, MCH 32.2 H, MCHC 32.0, RDW Std Deviation 53.1 H, RDW Coeff of Xenia 14.8 H, Plt Count 424, MPV 12.7 H, Neut % (Auto) Not Reportable, Absolute Neuts (auto) 4.9, Absolute Lymphs (auto) 1.09, Total Counted 100, Neutrophils % (Manual) 68, Band Neutrophils % 4, Lymphocytes % (Manual) 16 L, Monocytes % (Manual) 7, Eosinophils % (Manual) 3, Myelocytes % 2 H, Diff Path Review May , Platelet Estimate ADEQUATE, RBC Morphology NORM C+C 11/10/19 06:15: Sodium 143, Potassium 3.8, Chloride 107, Carbon Dioxide 32.0, Anion Gap 4 L, BUN 31 H, Creatinine 0.49 L, Estim Creat Clear Calc 51.56, Est GFR (MDRD) Af Amer 214, Est GFR (MDRD) Non-Af 177, BUN/Creatinine Ratio 62.8 H, Glucose 141 H, Calcium 7.9 L, Phosphorus 2.5, Magnesium 2.2, Total Bilirubin 0.60, AST 43 H, ALT 27, Alkaline Phosphatase 134 H, Total Protein 5.3 L, Albumin 1.4 L, Globulin 3.9, Albumin/Globulin Ratio 0.4 L Current Medications Acetaminophen (Tylenol) 650 mg RECTAL Q4H PRN PRN PRN Reason: Pain Score 1-10/Temp > 100.7 F Last Admin: 11/08/19 18:18 Dose: 650 mg Documented by: Albuterol/Ipratropium (Duoneb) 3 ml INHALATION Q6HWA.RT [facility] Last Admin: 11/10/19 07:20 Dose: Not Given Documented by: Aspirin (Aspirin, Baby) 81 mg GT DAILY@0800 [facility] Last Admin: 11/10/19 08:24 Dose: 81 mg Documented by: Calamine/Phenol (Calmoseptine Ointment) 1 applic TOPICAL BID [facility]; Protocol Last Admin: 11/10/19 08:24 Dose: 1 applicatio Documented by: Carvedilol (Coreg) 6.25 mg PO BID [facility] Last Admin: 11/10/19 08:24 Dose: 6.25 mg Documented by: Dextrose (D50w Syringe) 0 gm IV X1 PRN; Protocol PRN Reason: Hypoglycemia Furosemide (Lasix) 40 mg IV BID@1000,1800 [facility] Last Admin: 11/10/19 08:54 Dose: 40 mg Documented by: Glucagon () 1 mg IM .X1 PRN PRN Reason: Hypoglycemia Hydralazine HCl (Apresoline) 10 mg PO TID [facility] Last Admin: 11/10/19 05:53 Dose: 10 mg Documented by: Sodium Chloride () 250 mls @ 15 mls/hr IV .[id number] PRN PRN Reason: Saline Flush Sodium Chloride () 250 mls @ 15 mls/hr IV .[id number] PRN PRN Reason: Additional IVPB Infusion Meropenem 1 gm/ Sodium (Chloride) 120 mls @ 33 mls/hr IV Q8 [facility] Last Admin: 11/10/19 05:45 Dose: 33 mls/hr Documented by: Enteral Nutritional Formula (Vital Af 1.2 Arun Liquid) 1,000 mls @ 25 mls/hr GT .Q40H [facility] Last Admin: 11/08/19 17:25 Dose: 15 mls/hr Documented by: Multivitamins 10 ml/ Chromium/Copper/Manganese/Seleni/Zn 1 ml/ Folic Acid 1 mg/ Amino Acids/Electrolytes 2,011 mls @ 42 mls/hr IV .Q24H [facility] Stop: 11/10/19 15:47 Last Admin: 11/09/19 16:20 Dose: 42 mls/hr Documented by: Insulin Human Lispro (Humalog Kwikpen (Bkc)) 0 unit SC Q6 [facility]; Protocol Last Admin: 11/10/19 05:53 Dose: Not Given Documented by: Isosorbide Dinitrate (Isordil) 10 mg PO TID [facility] Last Admin: 11/10/19 05:52 Dose: 10 mg Documented by: Morphine Sulfate () 2 mg IV Q3H PRN PRN PRN Reason: Abdominal pain -04/14 Last Admin: 11/10/19 09:03 Dose: 2 mg Documented by: Ondansetron HCl (Zofran) 4 mg IV Q8H PRN PRN PRN Reason: NAUSEA/VOMITING Sodium Chloride () 10 - 40 ml IV UD PRN PRN Reason: SALINE FLUSH Last Admin: 11/10/19 08:54 Dose: 30 ml Documented by: Medical Necessity - Tobacco Use Smoking Status: Former smoker Assessment/Plan All Active Problems (Last Reviewed 11/05/19 @ 01:[address] Adriano Benton MD) Cardiomyopathy (Acute) Pneumothorax on right (Acute) Pneumothorax, right (Acute) Acute on chronic systolic (congestive) heart failure (Acute) Severe sepsis (Acute) 69-year-old male with pneumothorax and dysphasia 1. The patient had no acute events overnight but still remains on 15 L nasal cannula with saturation of only 90%. The patient had a larger bore chest tube inserted yesterday. This resolved his pneumothorax but he is still having continuous air leak. The patient had a chest x-ray this morning which shows no residual pneumothorax but he has large airleak with every breath. Patient continues to be confused and tube feeds are running. 2. The patient likely still has a poor prognosis and his oxygenation is not improving. 500 cc of fluid were removed from the right lung with chest tube insertion. I discussed yesterday that the pneumothorax may not resolve given his nutritional status and underlying lung disease. Dylon Willson MD Pager: [facility] [address] [place] [address], [address] [place] [address] Office:
--- NOTE | 2019-11-10 10:08 | PCM.PROGNOTE ---
<Silva Bonner - Last Filed: 11/10/19 11:00> Patient Problems: Active and Suspected Problems (Last Reviewed 11/05/19 @ 01:[address] Adriano Benton MD) Cardiomyopathy (Acute) Pneumothorax on right (Acute) Pneumothorax, right (Acute) Subjective: Patient seen and examined. Confused during assessment. Reports dry mouth. Complains of pain, unable to state where is having pain. - Physical Exam Vitals/I&O's: Vital Signs Temp Pulse Resp BP Pulse Ox 99.3 F H 124 H 26 H 119/70 95 11/10/19 08:00 11/10/19 08:00 11/10/19 08:00 11/10/19 08:00 11/10/19 08:00 Oxygen Flow Rate (L/min) [3] 12 Oxygen Flow Rate (L/min) [2] 12 Oxygen Flow Rate (L/min) [1 ( 12 Initial Baseline)] Oxygen Flow Rate (L/min) 15 Oxygen Delivery Method [3] Nasal Cannula Oxygen Delivery Method [2] Nasal Cannula Oxygen Delivery Method [1 ( Nasal Cannula Initial Baseline)] Oxygen Delivery Method Nasal Cannula Weight: 118 lb 9.739 oz Body Mass Index (BMI) 20.7 Intake and Output for Last 24 Hours 11/08/19 11/09/19 11/10/19 23:59 23:59 23:59 Intake Total 2762.8 / 2762.8 2475 / 2475 240 / 240 Output Total 1025 / 1025 635 / 635 10 / 10 Balance 1737.8 / 1737.8 1840 / 1840 230 / 230 General: Alert, Cooperative, No apparent distress, Confused HEENT: Atraumatic, PERRLA, EOMI, Normocephalic Oral: Dry Mucosa Neck: Supple, No JVD, Negative Carotid Bruits Lungs: Diminished, Rhonchi, - - Right chest tube Cardiovascular: Regular Rhythm, Normal S1, Normal S2, No murmurs, Tachycardic Abdomen: Bowel Sounds Present, Soft, Non Tender, Non-Distended, - - PEG in place. Extremities: No clubbing, No cyanosis, No edema, Capillary Refill Less than 3 Seconds Skin: No rashes, No breakdown Musculoskeletal: No Tenderness to Palpation of Joints or Extremities, Cachexia, Muscle Wasting Neurological: Cranial nerves II-XII grossly intact, Neuro grossly intact Psych/Mental Status: Normal Affect, Appropriate, Restless Microbiology Past 72 Hours 11/08/19 10:46 Blood Culture (Wb) - Right Hand Blood Culture - Preliminary No growth in 48 hours. 11/08/19 10:30 Blood Culture (Wb) - Right Wrist Blood Culture - Preliminary No growth in 48 hours. 11/08/19 15:14 Fluid - Thoracentesis Fluid Gram Stain - Final 11/08/19 15:14 Fluid - Thoracentesis Fluid Body Fluid Culture - Preliminary No growth-Final to follow 11/08/19 15:14 Fluid - Thoracentesis Fluid Anaerobic Culture - Preliminary No growth in 48 hours. 11/04/19 23:25 Blood Culture (Wb) - Right Hand Blood Culture - Final No growth in 5 days. 11/04/19 22:15 Blood Culture (Wb) - Pic Blood Culture - Final No growth in 5 days. 11/04/19 22:35 Urine, Catheterized Urine Culture - Final Culture exhibits no growth. Laboratory Results 11/08/19 15:14: Fl Pathologist Comment Reviewed 11/09/19 05:20: Diff Path Review Reviewed 11/09/19 11:46: POC Glucose 223 H 11/09/19 18:10: POC Glucose 109 11/09/19 23:49: POC Glucose 132 H 11/10/19 05:51: POC Glucose 141 H 11/10/19 06:15: WBC 6.8, RBC 3.57 L, Hgb 11.5 L, Hct 35.9 L, MCV 100.6 H, MCH 32.2 H, MCHC 32.0, RDW Std Deviation 53.1 H, RDW Coeff of Xenia 14.8 H, Plt Count 424, MPV 12.7 H, Neut % (Auto) Not Reportable, Absolute Neuts (auto) 4.9, Absolute Lymphs (auto) 1.09, Total Counted 100, Neutrophils % (Manual) 68, Band Neutrophils % 4, Lymphocytes % (Manual) 16 L, Monocytes % (Manual) 7, Eosinophils % (Manual) 3, Myelocytes % 2 H, Diff Path Review May , Platelet Estimate ADEQUATE, RBC Morphology NORM C+C 11/10/19 06:15: Sodium 143, Potassium 3.8, Chloride 107, Carbon Dioxide 32.0, Anion Gap 4 L, BUN 31 H, Creatinine 0.49 L, Estim Creat Clear Calc 51.56, Est GFR (MDRD) Af Amer 214, Est GFR (MDRD) Non-Af 177, BUN/Creatinine Ratio 62.8 H, Glucose 141 H, Calcium 7.9 L, Phosphorus 2.5, Magnesium 2.2, Total Bilirubin 0.60, AST 43 H, ALT 27, Alkaline Phosphatase 134 H, Total Protein 5.3 L, Albumin 1.4 L, Globulin 3.9, Albumin/Globulin Ratio 0.4 L Current Medications Acetaminophen (Tylenol) 650 mg RECTAL Q4H PRN PRN PRN Reason: Pain Score 1-10/Temp > 100.7 F Last Admin: 11/08/19 18:18 Dose: 650 mg Documented by: Albuterol/Ipratropium (Duoneb) 3 ml INHALATION Q6HWA.RT [facility] Last Admin: 11/10/19 07:20 Dose: Not Given Documented by: Aspirin (Aspirin, Baby) 81 mg GT DAILY@0800 [facility] Last Admin: 11/10/19 08:24 Dose: 81 mg Documented by: Calamine/Phenol (Calmoseptine Ointment) 1 applic TOPICAL BID [facility]; Protocol Last Admin: 11/10/19 08:24 Dose: 1 applicatio Documented by: Carvedilol (Coreg) 6.25 mg PO BID [facility] Last Admin: 11/10/19 08:24 Dose: 6.25 mg Documented by: Dextrose (D50w Syringe) 0 gm IV X1 PRN; Protocol PRN Reason: Hypoglycemia Furosemide (Lasix) 40 mg IV BID@1000,1800 [facility] Last Admin: 11/10/19 08:54 Dose: 40 mg Documented by: Glucagon () 1 mg IM .X1 PRN PRN Reason: Hypoglycemia Hydralazine HCl (Apresoline) 10 mg PO TID [facility] Last Admin: 11/10/19 05:53 Dose: 10 mg Documented by: Sodium Chloride () 250 mls @ 15 mls/hr IV .[id number] PRN PRN Reason: Saline Flush Sodium Chloride () 250 mls @ 15 mls/hr IV .[id number] PRN PRN Reason: Additional IVPB Infusion Meropenem 1 gm/ Sodium (Chloride) 120 mls @ 33 mls/hr IV Q8 [facility] Last Infusion: 11/10/19 09:35 Dose: Infused Documented by: Enteral Nutritional Formula (Vital Af 1.2 Arun Liquid) 1,000 mls @ 25 mls/hr GT .Q40H [facility] Last Admin: 11/08/19 17:25 Dose: 15 mls/hr Documented by: Multivitamins 10 ml/ Chromium/Copper/Manganese/Seleni/Zn 1 ml/ Folic Acid 1 mg/ Amino Acids/Electrolytes 2,011 mls @ 42 mls/hr IV .Q24H [facility] Stop: 11/10/19 15:47 Last Admin: 11/09/19 16:20 Dose: 42 mls/hr Documented by: Insulin Human Lispro (Humalog Kwikpen (Bkc)) 0 unit SC Q6 [facility]; Protocol Last Admin: 11/10/19 05:53 Dose: Not Given Documented by: Isosorbide Dinitrate (Isordil) 10 mg PO TID [facility] Last Admin: 11/10/19 05:52 Dose: 10 mg Documented by: Morphine Sulfate () 2 mg IV Q3H PRN PRN PRN Reason: Abdominal pain -04/14 Last Admin: 11/10/19 09:03 Dose: 2 mg Documented by: Ondansetron HCl (Zofran) 4 mg IV Q8H PRN PRN PRN Reason: NAUSEA/VOMITING Sodium Chloride () 10 - 40 ml IV UD PRN PRN Reason: SALINE FLUSH Last Admin: 11/10/19 08:54 Dose: 30 ml Documented by: Medical Necessity - Tobacco Use Smoking Status: Former smoker Assessment/Plan All Active Problems (Last Reviewed 11/05/19 @ 01:[address] Adriano Benton MD) Cardiomyopathy (Acute) Pneumothorax on right (Acute) Pneumothorax, right (Acute) Acute on chronic systolic (congestive) heart failure (Acute) Severe sepsis (Acute) 1. Acute hypoxic respiratory failure, multifactorial secondary to HCAP and acute on chronic systolic CHF- S/P thoracentesis 11/07 complicated by pneumothorax with right chest tube placement 11/07. Large bore chest tube in place with persistent air leak. Pleural fluid consistent with exudative based on pleural fluid analysis. Continue meropenem. Continue IV Lasix. Dr. Willson and Dr. Lynne following. Continue supplement oxygen to maintain O2 sat above 90%. Continues to require high flow oxygen. No BiPAP given pneumothorax. Cardiology following. Echocardiogram 11/07/2019 demonstrated an EF of 40%, pulmonary artery systolic pressure 50 mmHg, moderate pulmonary hypertension, mild to moderate mitral valve insufficiency, mild to moderate aortic valve insufficiency. Continue Lasix as noted above. 2. Severe sepsis, suspected secondary to HCAP-fever improved. Continue IV meropenem as noted above. 3. Dysphagia s/p PEG tube placement 5/- NPO. Continue PEG tube, dietitian consult. 4. Acute metabolic encephalopathy-secondary to #1/#2. Continue to treat underlying processes. 5. Abnormal troponin, demand ischemia as result of #1/#2-cardiology following. Continue aspirin, carvedilol. 6. Emphysema/COPD-no acute exacerbation. As needed aerosols. 7. Severe protein calorie malnutrition-dietitian consult. 8. Thrombocytopenia- resolved. Trend CBC. 9. Hypertension-stable, continue PRN labetalol, hydralazine. 10. Type 2 diabetes [id number] with sliding scale insulin. 11. Abdominal aortic aneurysm-as noted on recent CT abdomen, 5.1 cm. Recommend outpatient follow-up. DVT prophylaxis-SCDs. Pharmacologic prophylaxis on hold. Discharge planning: Prognosis remains poor. We will continue to discuss plan of care with patient's . This patient was seen by JOSE Dyer under the supervision of Dr. Mas. <Kvng Mas - Last Filed: 11/10/19 15:56> Objective: Seen and examined. Patient remained tachycardic, tachypneic and severely hypoxic 100% nonrebreather mask. No fever. Heart rate slightly better 114 as compared to yesterday. On exam General: Lethargic, intermittent confusion and disorientation. HEENT: Atraumatic, PERRLA, EOMI, Normocephalic Neck: Supple Lungs: Air entry severely diminished. Patient had thoracocentesis and then pneumothorax. Wide bore chest tube percutaneous inserted on 11/09/2019. Air leak continued with persistent air leak in atrium. Patient continues to be Short of Breath, Tachypneic, Using Accessory Muscles Cardiovascular: Normal S1, Normal S2, No murmurs, Tachycardic Abdomen: Bowel Sounds Present, Soft, Non Tender, Non-Distended, - Extremities: No edema, Capillary Refill Less than 3 Seconds Skin: No rashes Musculoskeletal: No Tenderness to Palpation of Joints or Extremities, Arthritic Changes Neurological: - - Drowsy and lethargic. - Physical Exam Vitals/I&O's: Vital Signs Temp Pulse Resp BP Pulse Ox 98.7 F 114 H 19 H 114/66 96 11/10/19 14:00 11/10/19 14:23 11/10/19 14:00 11/10/19 14:23 11/10/19 14:00 Oxygen Flow Rate (L/min) [3] 12 Oxygen Flow Rate (L/min) [2] 12 Oxygen Flow Rate (L/min) [1 ( 12 Initial Baseline)] Oxygen Flow Rate (L/min) 12 Oxygen Delivery Method [3] Nasal Cannula Oxygen Delivery Method [2] Nasal Cannula Oxygen Delivery Method [1 ( Nasal Cannula Initial Baseline)] Oxygen Delivery Method Nasal Cannula Weight: 118 lb 9.739 oz Body Mass Index (BMI) 19.1 Intake and Output for Last 24 Hours 11/08/19 11/09/19 11/10/19 23:59 23:59 23:59 Intake Total 2762.8 / 2762.8 2475 / 2475 300 / 300 Output Total 1025 / 1025 635 / 635 10 / 10 Balance 1737.8 / 1737.8 1840 / 1840 290 / 290 Microbiology Past 72 Hours 11/08/19 15:14 Fluid - Thoracentesis Fluid Gram Stain - Final 11/08/19 15:14 Fluid - Thoracentesis Fluid Body Fluid Culture - Preliminary No growth-Final to follow 11/08/19 15:14 Fluid - Thoracentesis Fluid Anaerobic Culture - Preliminary No growth in 48 hours. 11/08/19 10:46 Blood Culture (Wb) - Right Hand Blood Culture - Preliminary No growth in 48 hours. 11/08/19 10:30 Blood Culture (Wb) - Right Wrist Blood Culture - Preliminary No growth in 48 hours. 11/04/19 23:25 Blood Culture (Wb) - Right Hand Blood Culture - Final No growth in 5 days. 11/04/19 22:15 Blood Culture (Wb) - Pic Blood Culture - Final No growth in 5 days. Laboratory Results 11/09/19 18:10: POC Glucose 109 11/09/19 23:49: POC Glucose 132 H 11/10/19 05:51: POC Glucose 141 H 11/10/19 06:15: WBC 6.8, RBC 3.57 L, Hgb 11.5 L, Hct 35.9 L, MCV 100.6 H, MCH 32.2 H, MCHC 32.0, RDW Std Deviation 53.1 H, RDW Coeff of Xenia 14.8 H, Plt Count 424, MPV 12.7 H, Neut % (Auto) Not Reportable, Absolute Neuts (auto) 4.9, Absolute Lymphs (auto) 1.09, Total Counted 100, Neutrophils % (Manual) 68, Band Neutrophils % 4, Lymphocytes % (Manual) 16 L, Monocytes % (Manual) 7, Eosinophils % (Manual) 3, Myelocytes % 2 H, Diff Path Review Reviewed, Platelet Estimate ADEQUATE, RBC Morphology NORM C+C 11/10/19 06:15: Sodium 143, Potassium 3.8, Chloride 107, Carbon Dioxide 32.0, Anion Gap 4 L, BUN 31 H, Creatinine 0.49 L, Estim Creat Clear Calc 51.56, Est GFR (MDRD) Af Amer 214, Est GFR (MDRD) Non-Af 177, BUN/Creatinine Ratio 62.8 H, Glucose 141 H, Calcium 7.9 L, Phosphorus 2.5, Magnesium 2.2, Total Bilirubin 0.60, AST 43 H, ALT 27, Alkaline Phosphatase 134 H, Total Protein 5.3 L, Albumin 1.4 L, Globulin 3.9, Albumin/Globulin Ratio 0.4 L 11/10/19 13:28: POC Glucose 149 H Current Medications Acetaminophen (Tylenol) 650 mg RECTAL Q4H PRN PRN PRN Reason: Pain Score 1-10/Temp > 100.7 F Last Admin: 11/08/19 18:18 Dose: 650 mg Documented by: Albuterol/Ipratropium (Duoneb) 3 ml INHALATION Q6HWA.RT [facility] Last Admin: 11/10/19 12:59 Dose: 3 ml Documented by: Aspirin (Aspirin, Baby) 81 mg GT DAILY@0800 [facility] Last Admin: 11/10/19 08:24 Dose: 81 mg Documented by: Calamine/Phenol (Calmoseptine Ointment) 1 applic TOPICAL BID [facility]; Protocol Last Admin: 11/10/19 08:24 Dose: 1 applicatio Documented by: Carvedilol (Coreg) 6.25 mg PO BID [facility] Last Admin: 11/10/19 08:24 Dose: 6.25 mg Documented by: Dextrose (D50w Syringe) 0 gm IV X1 PRN; Protocol PRN Reason: Hypoglycemia Furosemide (Lasix) 40 mg IV BID@1000,1800 [facility] Last Admin: 11/10/19 08:54 Dose: 40 mg Documented by: Glucagon () 1 mg IM .X1 PRN PRN Reason: Hypoglycemia Hydralazine HCl (Apresoline) 10 mg PO TID [facility] Last Admin: 11/10/19 14:23 Dose: 10 mg Documented by: Sodium Chloride () 250 mls @ 15 mls/hr IV .[id number] PRN PRN Reason: Saline Flush Sodium Chloride () 250 mls @ 15 mls/hr IV .[id number] PRN PRN Reason: Additional IVPB Infusion Meropenem 1 gm/ Sodium (Chloride) 120 mls @ 33 mls/hr IV Q8 [facility] Last Admin: 11/10/19 13:58 Dose: 33 mls/hr Documented by: Enteral Nutritional Formula (Vital Af 1.2 Arun Liquid) 1,000 mls @ 55 mls/hr GT .[id number] [facility] Last Admin: 11/10/19 14:23 Dose: 55 mls/hr Documented by: Insulin Human Lispro (Humalog Kwikpen (Bkc)) 0 unit SC Q6 [facility]; Protocol Last Admin: 11/10/19 13:31 Dose: Not Given Documented by: Isosorbide Dinitrate (Isordil) 10 mg PO TID [facility] Last Admin: 11/10/19 14:23 Dose: 10 mg Documented by: Morphine Sulfate () 2 mg IV Q3H PRN PRN PRN Reason: Abdominal pain 6-1010 Last Admin: 11/10/19 13:58 Dose: 2 mg Documented by: Ondansetron HCl (Zofran) 4 mg IV Q8H PRN PRN PRN Reason: NAUSEA/VOMITING Sodium Chloride () 10 - 40 ml IV UD PRN PRN Reason: SALINE FLUSH Last Admin: 11/10/19 08:54 Dose: 30 ml Documented by: Assessment/Plan This patient was seen in conjunction with [facility] [employer]. I have independently interviewed and examined the patient and reviewed pertinent history, examination findings, laboratory and plan of management. I have reviewed the note and agree with the documented findings with the few additional points. In brief, patient is admitted for acute metabolic encephalopathy probably secondary to intra-abdominal infection: Patient had free air under diaphragm on prior imaging but repeat CT abdomen did not show it. Subsequently patient had PEG tube on last Thursday and then had tachycardia. Repeat CT with oral contrast was done which reported stable but no PEG tube seen. CT chest did not show PE but bilateral pleural effusion, right more than left with underlying infiltrate and atelectasis. Chronic fibrosis and cystic and bullous appearance of emphysematous disease. New infiltrate on right upper lobe. On IV cefepime. Vancomycin and Flagyl discontinued as patient did not had fever for last 3 days, blood cultures negative for more than 48 hours and urine culture negative. 11/07: Patient oxygen requirement went up. Continue to be tachycardic and tachypneic and short of breath. CT abdomen was repeated. Repeat CT shows no extravasation of oral contrast small stable amount of free extraluminal air adjacent to medial aspect of left lobe of the liver. PEG tube in inferior portion of the stomach. Patient had right-sided ultrasound-guided thoracocentesis and about 1000 mL of imtiaz-colored fluid removed. The fluid was sent for thoracocentesis. Lites criteria is suggestive of exudate as fluid LDH is more than two third of upper limit of serum LDH probably secondary to diuretic effect although clinically seems transudate. Subsequently patient was very short of breath and chest x-ray showed pneumothorax. Pigtail catheter placed. Repeat serial chest x-ray were done. Patient still has air leak but shows improvement of right apical pneumothorax. Tiny residual right apical pneumothorax. Surgeon talked to patient's and I was there. He agreed for compassionate visit of his prognosis is poor. Patient is DNR CC arrest with no intubation Pulmonary, cardiology and ID consult appreciated. Antibiotic changed to meropenem. IV cefepime discontinued 11/08: Goal of life discussed with the patient and his near the bedside along with surgeon Dr. Willson and SHARLA Garcia. As per , patient wants to go ahead for the percutaneous right bore chest tube although risk of persistent air leak, further respiratory status deterioration with tachypnea, hypoxia, bleeding and even explained. Patient had right-sided chest tube placed after removal of pigtail catheter. 500 cc of straw-colored fluid was also removed. Patient still has air leak. Chest x-ray reviewed and reported minimal residual right pneumothorax. Pleural fluid Gram stain shows no organism, full culture pending. No fever but tachycardia, tachypnea and severe hypoxia 100% nonrebreather. Prognosis poor. CODE STATUS remains same DNR CC arrest with no intubation. 11/09: Patient remained tachycardic, tachypneic and severe hypoxia 100% nonrebreather. Prognosis.. Discussed with the patient's Janee Bhandari on phone and clinical update given. Still significant persistent air leak. Patient was seen and examined along with Dr. Willson. Thoracocentesis fluid culture with no growth at 48 hours. Other infectious work-up negative. On empiric antibiotic, IV meropenem I have discussed my assessment with [facility] [facility] [employer] and orders have been reviewed. Inpatient E&M: 99049 Subs Hosp L3
--- NOTE | 2019-11-10 10:50 | PN.ID_ITS ---
Patient Problems: Active and Suspected Problems (Last Reviewed 11/05/19 @ 01:[address] Adriano Benton MD) Cardiomyopathy (Acute) Pneumothorax on right (Acute) Pneumothorax, right (Acute) Subjective: Feeling better, more alert, denies abd pain, no fever, denies dyspnea - Physical Exam Vitals/I&O's: Vital Signs Temp Pulse Resp BP Pulse Ox 99.3 F H 124 H 26 H 119/70 95 11/10/19 08:00 11/10/19 08:00 11/10/19 08:00 11/10/19 08:00 11/10/19 08:00 Oxygen Flow Rate (L/min) [3] 12 Oxygen Flow Rate (L/min) [2] 12 Oxygen Flow Rate (L/min) [1 ( 12 Initial Baseline)] Oxygen Flow Rate (L/min) 15 Oxygen Delivery Method [3] Nasal Cannula Oxygen Delivery Method [2] Nasal Cannula Oxygen Delivery Method [1 ( Nasal Cannula Initial Baseline)] Oxygen Delivery Method Nasal Cannula Weight: 53.8 kg Body Mass Index (BMI) 20.7 Intake and Output for Last 24 Hours 11/08/19 11/09/19 11/10/19 23:59 23:59 23:59 Intake Total 2762.8 / 2762.8 2475 / 2475 300 / 300 Output Total 1025 / 1025 635 / 635 10 / 10 Balance 1737.8 / 1737.8 1840 / 1840 290 / 290 General: Alert, Cooperative, No apparent distress Lungs: Rhonchi - R sided Cardiovascular: Regular rate, Regular Rhythm Abdomen: Soft, Non Tender, Non-Distended Skin: No rashes Microbiology Past 72 Hours 11/08/19 10:46 Blood Culture (Wb) - Right Hand Blood Culture - Preliminary No growth in 48 hours. 11/08/19 10:30 Blood Culture (Wb) - Right Wrist Blood Culture - Preliminary No growth in 48 hours. 11/08/19 15:14 Fluid - Thoracentesis Fluid Gram Stain - Final 11/08/19 15:14 Fluid - Thoracentesis Fluid Body Fluid Culture - Preliminary No growth-Final to follow 11/08/19 15:14 Fluid - Thoracentesis Fluid Anaerobic Culture - Preliminary No growth in 48 hours. 11/04/19 23:25 Blood Culture (Wb) - Right Hand Blood Culture - Final No growth in 5 days. 11/04/19 22:15 Blood Culture (Wb) - Pic Blood Culture - Final No growth in 5 days. 11/04/19 22:35 Urine, Catheterized Urine Culture - Final Culture exhibits no growth. Laboratory Results 11/08/19 15:14: Fl Pathologist Comment Reviewed 11/09/19 05:20: Diff Path Review Reviewed 11/09/19 11:46: POC Glucose 223 H 11/09/19 18:10: POC Glucose 109 11/09/19 23:49: POC Glucose 132 H 11/10/19 05:51: POC Glucose 141 H 11/10/19 06:15: WBC 6.8, RBC 3.57 L, Hgb 11.5 L, Hct 35.9 L, MCV 100.6 H, MCH 32.2 H, MCHC 32.0, RDW Std Deviation 53.1 H, RDW Coeff of Xenia 14.8 H, Plt Count 424, MPV 12.7 H, Neut % (Auto) Not Reportable, Absolute Neuts (auto) 4.9, Absolute Lymphs (auto) 1.09, Total Counted 100, Neutrophils % (Manual) 68, Band Neutrophils % 4, Lymphocytes % (Manual) 16 L, Monocytes % (Manual) 7, Eosinophils % (Manual) 3, Myelocytes % 2 H, Diff Path Review May , Platelet Estimate ADEQUATE, RBC Morphology NORM C+C 11/10/19 06:15: Sodium 143, Potassium 3.8, Chloride 107, Carbon Dioxide 32.0, Anion Gap 4 L, BUN 31 H, Creatinine 0.49 L, Estim Creat Clear Calc 51.56, Est GFR (MDRD) Af Amer 214, Est GFR (MDRD) Non-Af 177, BUN/Creatinine Ratio 62.8 H, Glucose 141 H, Calcium 7.9 L, Phosphorus 2.5, Magnesium 2.2, Total Bilirubin 0.60, AST 43 H, ALT 27, Alkaline Phosphatase 134 H, Total Protein 5.3 L, Albumin 1.4 L, Globulin 3.9, Albumin/Globulin Ratio 0.4 L Current Medications Acetaminophen (Tylenol) 650 mg RECTAL Q4H PRN PRN PRN Reason: Pain Score 1-10/Temp > 100.7 F Last Admin: 11/08/19 18:18 Dose: 650 mg Documented by: Albuterol/Ipratropium (Duoneb) 3 ml INHALATION Q6HWA.RT ON LICENSE OF [facility] Last Admin: 11/10/19 07:20 Dose: Not Given Documented by: Aspirin (Aspirin, Baby) 81 mg GT DAILY@0800 ON LICENSE OF [facility] Last Admin: 11/10/19 08:24 Dose: 81 mg Documented by: Calamine/Phenol (Calmoseptine Ointment) 1 applic TOPICAL BID ON LICENSE OF [facility]; Protocol Last Admin: 11/10/19 08:24 Dose: 1 applicatio Documented by: Carvedilol (Coreg) 6.25 mg PO BID ON LICENSE OF [facility] Last Admin: 11/10/19 08:24 Dose: 6.25 mg Documented by: Dextrose (D50w Syringe) 0 gm IV X1 PRN; Protocol PRN Reason: Hypoglycemia Furosemide (Lasix) 40 mg IV BID@1000,1800 ON LICENSE OF [facility] Last Admin: 11/10/19 08:54 Dose: 40 mg Documented by: Glucagon () 1 mg IM .X1 PRN PRN Reason: Hypoglycemia Hydralazine HCl (Apresoline) 10 mg PO TID ON LICENSE OF [facility] Last Admin: 11/10/19 05:53 Dose: 10 mg Documented by: Sodium Chloride () 250 mls @ 15 mls/hr IV .[id number] PRN PRN Reason: Saline Flush Sodium Chloride () 250 mls @ 15 mls/hr IV .[id number] PRN PRN Reason: Additional IVPB Infusion Meropenem 1 gm/ Sodium (Chloride) 120 mls @ 33 mls/hr IV Q8 ON LICENSE OF [facility] Last Infusion: 11/10/19 09:35 Dose: Infused Documented by: Enteral Nutritional Formula (Vital Af 1.2 Arun Liquid) 1,000 mls @ 25 mls/hr GT .Q40H ON LICENSE OF [facility] Last Admin: 11/08/19 17:25 Dose: 15 mls/hr Documented by: Multivitamins 10 ml/ Chromium/Copper/Manganese/Seleni/Zn 1 ml/ Folic Acid 1 mg/ Amino Acids/Electrolytes 2,011 mls @ 42 mls/hr IV .Q24H ON LICENSE OF [facility] Stop: 11/10/19 15:47 Last Admin: 11/09/19 16:20 Dose: 42 mls/hr Documented by: Insulin Human Lispro (Humalog Kwikpen (Bkc)) 0 unit SC Q6 ON LICENSE OF [facility]; Protocol Last Admin: 11/10/19 05:53 Dose: Not Given Documented by: Isosorbide Dinitrate (Isordil) 10 mg PO TID [place] Last Admin: 11/10/19 05:52 Dose: 10 mg Documented by: Morphine Sulfate () 2 mg IV Q3H PRN PRN PRN Reason: Abdominal pain 6-04/14 Last Admin: 11/10/19 09:03 Dose: 2 mg Documented by: Ondansetron HCl (Zofran) 4 mg IV Q8H PRN PRN PRN Reason: NAUSEA/VOMITING Sodium Chloride () 10 - 40 ml IV UD PRN PRN Reason: SALINE FLUSH Last Admin: 11/10/19 08:54 Dose: 30 ml Documented by: Medical Necessity - Tobacco Use Smoking Status: Former smoker Route of nutrition/ use of supplements: [] Nutritional Intake: [] IV Site: [] Moreira Catheter: [] - Assessment/Plan Antibiotics: [] Assessment/Plan: [] Active and Suspected Problems (Last Reviewed 11/05/19 @ 01:[address] Adriano orr MD) Cardiomyopathy (Acute) Pneumothorax on right (Acute) Fever, pneumonia, pleural effusion - last admit concern that cefepime contributed to his encephalopathy. Mental status improved, on meropenem since 11/07. Fluid cx neg so far. Will follow
--- NOTE | 2019-11-10 11:00 | PCM.PN.CARD ---
Subjectve: The patient remains confused. He remains short of breath appearing. Objective: Vital Signs Temp Pulse Resp BP Pulse Ox 99.3 F H 124 H 26 H 119/70 95 11/10/19 08:00 11/10/19 08:00 11/10/19 08:00 11/10/19 08:00 11/10/19 08:00 Oxygen Flow Rate (L/min) [3] 12 Oxygen Flow Rate (L/min) [2] 12 Oxygen Flow Rate (L/min) [1 ( 12 Initial Baseline)] Oxygen Flow Rate (L/min) 15 Oxygen Delivery Method [3] Nasal Cannula Oxygen Delivery Method [2] Nasal Cannula Oxygen Delivery Method [1 ( Nasal Cannula Initial Baseline)] Oxygen Delivery Method Nasal Cannula Weight: 118 lb 9.739 oz Body Mass Index (BMI) 20.7 Intake and Output for Last 24 Hours 11/08/19 11/09/19 11/10/19 23:59 23:59 23:59 Intake Total 2762.8 / 2762.8 2475 / 2475 300 / 300 Output Total 1025 / 1025 635 / 635 10 / 10 Balance 1737.8 / 1737.8 1840 / 1840 290 / 290 General: Awake, Cooperative, Ill Appearing, Disoriented HEENT: Atraumatic, Normocephalic, PERRL, EOMI, Sclera Non Icteric Neck: Supple, Good ROM Chest Wall: - - Right-sided chest tube in place Lungs: Diminished Kamlesh Bases Cardiovascular: Regular Rhythm, Normal S1, Normal S2 Abdomen: Bowel Sounds Present, Soft Extremities: No edema 11/10/19 06:15: WBC 6.8, RBC 3.57 L, Hgb 11.5 L, Hct 35.9 L, MCV 100.6 H, MCH 32.2 H, MCHC 32.0, Plt Count 424, MPV 12.7 H, Neut % (Auto) Not Reportable, Absolute Neuts (auto) 4.9, Total Counted 100, Neutrophils % (Manual) 68, Band Neutrophils % 4, Lymphocytes % (Manual) 16 L, Monocytes % (Manual) 7, Eosinophils % (Manual) 3, Myelocytes % 2 H 11/10/19 06:15: Sodium 143, Potassium 3.8, Chloride 107, Carbon Dioxide 32.0, Anion Gap 4 L, BUN 31 H, Creatinine 0.49 L, Est GFR (MDRD) Af Amer 214, Est GFR (MDRD) Non-Af 177, BUN/Creatinine Ratio 62.8 H, Glucose 141 H, Calcium 7.9 L, Phosphorus 2.5, Magnesium 2.2, Total Bilirubin 0.60 Rhythm: Sinus rhythm/sinus tachycardia Medical Necessity - Tobacco Use Smoking Status: Former smoker Assessment/Plan 1. Acute respiratory distress The patient continues with acute respiratory related issues. The etiology may be multifactorial. From a cardiovascular standpoint there are concerns about diminished LV systolic function and the possibility of acute on chronic systolic mediated CHF. The same time the patient has underlying pulmonary disease which could lead to findings of his pulmonary hypertension and subsequent adverse pulmonary effects. The patient has now also undergone a right-sided thoracentesis with a subsequent right-sided pneumothorax. He now has a right-sided chest tube which has been upgraded to a larger diameter chest tube. From a cardiac standpoint he does need to continue to be monitored. He needs continued input from internal medicine as well as pulmonology. From a cardiac standpoint he will continue noninvasive evaluation and care. This will include medical management including diuretic therapy. Hopefully this will help his volume status which will help his underlying pulmonary disease process. 2. Acute on chronic systolic mediated CHF The patient appears to have evidence of diminished LV systolic function. This could lead to acute on chronic systolic mediated CHF. At the present time he will continue noninvasive evaluation and conservative medical management. This will include diuretic therapy. His other medications can be adjusted as needed. 3. Cardiomyopathy He does have diminished LV systolic function based upon his echocardiographic findings. It is unclear at this time whether he has a history of underlying CAD. His echocardiographic findings are as noted. At the moment he will continue medical management and support. 4. CAD The patient states he has a history of open heart surgery. He does not appear to demonstrate obvious physical examination findings or radiologic findings. He does have an indeterminate troponin. This may be related to a type II event brought out by his acute respiratory distress related issue. At the moment he will continue to be monitored and he will continue medical therapy. He does not appear to be an ideal candidate for any invasive cardiovascular evaluation or care at this time. 5. Hyperlipidemia He should continue risk factor evaluation care as deemed appropriate. 6. Hypertension His blood pressure can be followed and his medications can be adjusted as needed. 7. Diabetes mellitus He will continue under care of internal medicine. 8. COPD He does have a history of underlying COPD. He will need continued input from internal medicine and pulmonology. 9. Pneumothorax He is status post right-sided thoracentesis with a right-sided pneumothorax. Again he is status post right-sided chest tube placement. 10. Metabolic encephalopathy The patient is disoriented. Based upon the [facility] staff this was thought to be metabolic related. He will need continued evaluation care by internal medicine. Overall, this appears to be a ill debilitated patient with multiple medical issues. From a cardiac standpoint it would be recommended he continue his noninvasive evaluation and conservative medical therapy as he does not appear to be an ideal candidate for any invasive cardiovascular evaluation or care at this time. This note was generated using a voice recognition system and there may be incorrect words, spelling or punctuation that were not noted when reviewing the office note prior to saving.
[2019-11-10 11:28] LABS: Pathologist Review Reviewed
--- NOTE | 2019-11-10 11:39 | PCM.NTREPORT ---
Nutrition Therapy Report - History Nutrition Services has been consulted to:: Manage enteral nutrition Current diet / nutrition support order:: NPO; 1L 5%AA/20% dextrose solution, Vital AF 1.2 at 25mL/hour via PEG - Anthropometric Measurements Height:: 5 ft 6 in Weight:: 53.8 kg Body Mass Index (BMI):: 19.1 - Relevant Labs Relevant Labs:: RBC 3.57 M/mm3 (4.6-6.2) L 11/10/19 06:15 Hgb 11.5 g/dL (13.0-16.5) L 11/10/19 06:15 Hct 35.9 % (40-54) L 11/10/19 06:15 MCV 100.6 fL (80-94) H 11/10/19 06:15 MCH 32.2 pg (27.0-32.0) H 11/10/19 06:15 RDW Std Deviation 53.1 fl (35.1-43.9) H 11/10/19 06:15 RDW Coeff of Xenia 14.8 % (11.6-14.6) H 11/10/19 06:15 Plt Count 106 K/mm3 (150-450) L 11/06/19 06:40 MPV 12.7 fl (6.2-12.0) H 11/10/19 06:15 Neut % (Auto) 70.9 % (47-70) H 11/08/19 04:46 Lymph % (Auto) 11.9 % (19-41) L 11/08/19 04:46 [place] % (Auto) 13.4 % (0-10) H 11/08/19 04:46 Eos % (Auto) 7.5 % (0-5) H 11/06/19 06:40 Absolute Lymphs (auto) 0.68 X10^3/uL (0.83-4.51) L 11/09/19 05:20 Band Neutrophils % 10 % (0-5) H 11/09/19 05:20 Lymphocytes % (Manual) 16 % (19-41) L 11/10/19 06:15 Monocytes % (Manual) 11 % (0-10) H 11/09/19 05:20 Metamyelocytes % 4 % (0-1) H 11/09/19 05:20 Myelocytes % 2 (0-0) H 11/10/19 06:15 PT 17.2 SECONDS (11.7-14.9) H 11/06/19 13:30 APTT 42.6 Seconds (24.1-36.2) H 11/06/19 19:48 D-Dimer Quant (PE/DVT) > 20.00 FEU/ug/m (0.27-0.49) H* 11/06/19 09:04 Sodium 134 mmol/L (136-145) L 11/05/19 03:00 Potassium 2.9 mmol/L (3.5-5.1) L 11/08/19 04:46 Chloride 108 mmol/L (98-107) H 11/07/19 04:38 Carbon Dioxide 19.0 mmol/L (21.0-32.0) L 11/05/19 03:00 Anion Gap 4 (5-15) L 11/10/19 06:15 BUN 31 mg/dL (7-18) H 11/10/19 06:15 Creatinine 0.49 mg/dL (0.70-1.30) L 11/10/19 06:15 BUN/Creatinine Ratio 62.8 RATIO (10-20) H 11/10/19 06:15 Glucose 141 mg/dL (74-106) H 11/10/19 06:15 Lactic Acid 2.1 mmol/L (0.4-1.9) H* 11/05/19 07:00 Calcium 7.9 mg/dL (8.5-10.1) L 11/10/19 06:15 Phosphorus 2.3 mg/dL (2.5-4.9) L 11/09/19 05:20 Total Bilirubin 1.30 mg/dL (0.20-1.00) H 11/06/19 06:40 Direct Bilirubin 1.31 mg/dL (0.00-0.30) H 11/05/19 05:58 AST 43 U/L (15-37) H 11/10/19 06:15 ALT 66 U/L (16-61) H 11/04/19 22:15 Alkaline Phosphatase 134 U/L (45-117) H 11/10/19 06:15 Lactate Dehydrogenase 528 U/L (87-241) H 11/08/19 10:46 Troponin I 0.144 ng/mL (<0.045) H 11/05/19 08:48 B-Natriuretic Peptide 2806.8 pg/mL (0-100) H 11/08/19 04:46 Total Protein 5.3 g/dL (6.4-8.2) L 11/10/19 06:15 Albumin 1.4 g/dL (3.2-5.0) L 11/10/19 06:15 Globulin 4.5 g/dL (2.2-4.2) H 11/09/19 05:20 Albumin/Globulin Ratio 0.4 RATIO (0.9-2.4) L 11/10/19 06:15 Procalcitonin 0.88 ng/mL (0.00-0.09) H 11/08/19 10:46 - Assessment Food / Nutrition-Related History:: Improvement in wt since last review, down 4.5kg per nursing documentation. Tube feeds initiated via PEG at 15mL/hour and increased this AM to 25mL/hour. No significant residuals reported. TPN ordered 11/08 still infusing. Mag/phos WNL. - Nutrition Diagnosis Problem / Etiology / Signs & Symptoms (PES):: Severe malnutrition in the context of acute illness related to inadequate oral intake d/t mental status, dysphagia as evidenced by 9.4% wt loss x ~3 ? weeks, moderate loss of muscle & subcutaneous fat Evidence of Malnutrition Exists:: Yes Severe PCM:: Acute Illness - Nutrition Intervention Nutrition Prescription:: [id number] calories/day, 60-70 g protein/day - Food / Nutrient Delivery Interventions Summary of nutrition intervention:: Will maintain enteral feeds at 25mL/hour, which will provide 720 calories, 45 g protein over 24 hours which will meet ~45% pt's calorie needs and 64% protein needs. Will advance enteral nutrition as tolerated to goal rate of 55mL/hour. Discussed w/ JOSE Ascencio- will not continue TPN today. Nutrition support ordered as / adjusted to:: Vital AF 1.2 at goal rate of 55mL/hour w/ 75mL H2O flush every 4 hours. Will continue at 25mL/hour and increase by 10mL every 8 to 12 hours as pt tolerates until goal rate achieved. Nutrition education provided?: No - MNT Monitoring Further MNT monitoring and evaluation required?: Yes MNT Follow-up in:: 1-2 days
[2019-11-10] MEDS: Ipratropium/Albuterol Sulfate 3 ML AMPUL.NEB INHALATION (12:59)
--- NOTE | 2019-11-10 13:06 | PN_ITS ---
Patient Problems: Active and Suspected Problems (Last Reviewed 11/05/19 @ 01:[address] Adriano Benton MD) Cardiomyopathy (Acute) Pneumothorax on right (Acute) Pneumothorax, right (Acute) Subjective: The patient was seen and examined at the bedside this morning. Events from the last 24 hours have been reviewed. The patient is currently afebrile, hemodynamically stable and maintaining appropriate oxygen saturations on high flow nasal cannula. Respiratory status still remains quite tenuous. Patient continues to have a persistent air leak from chest tube. Objective: The patient's most recent lab work, culture data and imaging studies have all been personally reviewed. Blood and urine cultures have been unrevealing to date. Pleural fluid Gram stain revealed no evidence of organisms. - Physical Exam Vitals/I&O's: Vital Signs Temp Pulse Resp BP Pulse Ox 99.3 F H 113 H 26 H 119/70 95 11/10/19 08:00 11/10/19 13:01 11/10/19 13:01 11/10/19 08:00 11/10/19 08:00 Oxygen Flow Rate (L/min) [3] 12 Oxygen Flow Rate (L/min) [2] 12 Oxygen Flow Rate (L/min) [1 ( 12 Initial Baseline)] Oxygen Flow Rate (L/min) 15 Oxygen Delivery Method [3] Nasal Cannula Oxygen Delivery Method [2] Nasal Cannula Oxygen Delivery Method [1 ( Nasal Cannula Initial Baseline)] Oxygen Delivery Method Nasal Cannula Weight: 118 lb 9.739 oz Body Mass Index (BMI) 19.1 Intake and Output for Last 24 Hours 11/08/19 11/09/19 11/10/19 23:59 23:59 23:59 Intake Total 2762.8 / 2762.8 2475 / 2475 300 / 300 Output Total 1025 / 1025 635 / 635 10 / 10 Balance 1737.8 / 1737.8 1840 / 1840 290 / 290 General: Alert, Confused HEENT: Atraumatic, Normocephalic Oral: Dry Mucosa Neck: Supple, No Nodes, Trachea Midline Lungs: Diminished, Tachypneic, - - Right-sided large bore chest tube in place with airleak noted in atrium Cardiovascular: Normal S1, Normal S2, No murmurs, Tachycardic Abdomen: Bowel Sounds Present, Soft, Non Tender Extremities: No clubbing, No cyanosis, No edema Skin: No breakdown Musculoskeletal: Cachexia, Muscle Wasting Lymphatic: No Cervical, Supraclavicular, or Inguinal Adenopathy Neurological: Neuro grossly intact Psych/Mental Status: Normal Affect, Appropriate Labs (Last 48 Hours) 11/08/19 11/08/19 11/08/19 15:14 15:14 15:14 WBC RBC Hgb Hct MCV MCH MCHC RDW Std Deviation RDW Coeff of Xenia Plt Count MPV Neut % (Auto) Absolute Neuts (auto) Absolute Lymphs (auto) Total Counted Neutrophils % (Manual) Band Neutrophils % Lymphocytes % (Manual) Monocytes % (Manual) Eosinophils % (Manual) Metamyelocytes % Myelocytes % Differential Comment Diff Path Review Platelet Estimate RBC Morphology Sodium Potassium Chloride Carbon Dioxide Anion Gap BUN Creatinine Estim Creat Clear Calc Est GFR (MDRD) Af Amer Est GFR (MDRD) Non-Af BUN/Creatinine Ratio Glucose Calcium Phosphorus Magnesium Total Bilirubin AST ALT Alkaline Phosphatase Total Protein Albumin Globulin Albumin/Globulin Ratio Fluid Source Fluid Color Fluid Appearance Fluid pH Pending Fluid WBC Fluid RBC Fluid Tot Cell Count Fld Polynuclear WBCs # Fld Polynuclear WBCs % Fluid Mononuclear WBCs Fld Mononuclear WBCs % Fluid Neutrophils Fluid Lymphocytes Fluid Monocytes Fld Mesothelial Cells Fl Pathologist Comment Fluid Glucose 183 H Fluid Total Protein 0.9 Fluid LDH 194 Fluid Comment 2 Miscellaneous Cytology Pending POC Glucose 11/08/19 11/08/19 11/08/19 15:14 17:08 23:41 WBC RBC Hgb Hct MCV MCH MCHC RDW Std Deviation RDW Coeff of Xenia Plt Count MPV Neut % (Auto) Absolute Neuts (auto) Absolute Lymphs (auto) Total Counted Neutrophils % (Manual) Band Neutrophils % Lymphocytes % (Manual) Monocytes % (Manual) Eosinophils % (Manual) Metamyelocytes % Myelocytes % Differential Comment Diff Path Review Platelet Estimate RBC Morphology Sodium Potassium Chloride Carbon Dioxide Anion Gap BUN Creatinine Estim Creat Clear Calc Est GFR (MDRD) Af Amer Est GFR (MDRD) Non-Af BUN/Creatinine Ratio Glucose Calcium Phosphorus Magnesium Total Bilirubin AST ALT Alkaline Phosphatase Total Protein Albumin Globulin Albumin/Globulin Ratio Fluid Source THORACENTESIS Fluid Color YELLOW Fluid Appearance CLEAR Fluid pH Fluid WBC 0.207 Fluid RBC 88 Fluid Tot Cell Count 0.227 Fld Polynuclear WBCs # 0.128 Fld Polynuclear WBCs % 61.8 Fluid Mononuclear WBCs 0.079 Fld Mononuclear WBCs % 38.2 Fluid Neutrophils 67 Fluid Lymphocytes 18 Fluid Monocytes 3 Fld Mesothelial Cells 12 Fl Pathologist Comment Reviewed Fluid Glucose Fluid Total Protein Fluid LDH Fluid Comment 2 SEE COMMENT Miscellaneous Cytology POC Glucose 117 H 160 H 11/09/19 11/09/19 11/09/19 05:20 05:20 05:51 WBC 5.2 RBC 3.80 L Hgb 12.1 L Hct 37.2 L MCV 97.9 H MCH 31.8 MCHC 32.5 RDW Std Deviation 51.1 H RDW Coeff of Xenia 14.6 Plt Count 428 MPV 12.8 H Neut % (Auto) Not Reportable Absolute Neuts (auto) 3.5 Absolute Lymphs (auto) 0.68 L Total Counted 100 Neutrophils % (Manual) 58 Band Neutrophils % 10 H Lymphocytes % (Manual) 13 L Monocytes % (Manual) 11 H Eosinophils % (Manual) 3 Metamyelocytes % 4 H Myelocytes % 1 H Differential Comment Diff Path Review Reviewed Platelet Estimate ADEQUATE RBC Morphology Sodium 139 Potassium 3.7 Chloride 105 Carbon Dioxide 27.0 Anion Gap 7 BUN 28 H Creatinine 0.48 L Estim Creat Clear Calc 55.68 Est GFR (MDRD) Af Amer 223 Est GFR (MDRD) Non-Af 184 BUN/Creatinine Ratio 58.7 H Glucose 171 H Calcium 8.0 L Phosphorus 2.3 L Magnesium 1.8 Total Bilirubin 1.00 AST 41 H ALT 32 Alkaline Phosphatase 139 H Total Protein 6.1 L Albumin 1.6 L Globulin 4.5 H Albumin/Globulin Ratio 0.4 L Fluid Source Fluid Color Fluid Appearance Fluid pH Fluid WBC Fluid RBC Fluid Tot Cell Count Fld Polynuclear WBCs # Fld Polynuclear WBCs % Fluid Mononuclear WBCs Fld Mononuclear WBCs % Fluid Neutrophils Fluid Lymphocytes Fluid Monocytes Fld Mesothelial Cells Fl Pathologist Comment Fluid Glucose Fluid Total Protein Fluid LDH Fluid Comment 2 Miscellaneous Cytology POC Glucose 189 H 11/09/19 11/09/19 11/09/19 11:46 18:10 23:49 WBC RBC Hgb Hct MCV MCH MCHC RDW Std Deviation RDW Coeff of Xenia Plt Count MPV Neut % (Auto) Absolute Neuts (auto) Absolute Lymphs (auto) Total Counted Neutrophils % (Manual) Band Neutrophils % Lymphocytes % (Manual) Monocytes % (Manual) Eosinophils % (Manual) Metamyelocytes % Myelocytes % Differential Comment Diff Path Review Platelet Estimate RBC Morphology Sodium Potassium Chloride Carbon Dioxide Anion Gap BUN Creatinine Estim Creat Clear Calc Est GFR (MDRD) Af Amer Est GFR (MDRD) Non-Af BUN/Creatinine Ratio Glucose Calcium Phosphorus Magnesium Total Bilirubin AST ALT Alkaline Phosphatase Total Protein Albumin Globulin Albumin/Globulin Ratio Fluid Source Fluid Color Fluid Appearance Fluid pH Fluid WBC Fluid RBC Fluid Tot Cell Count Fld Polynuclear WBCs # Fld Polynuclear WBCs % Fluid Mononuclear WBCs Fld Mononuclear WBCs % Fluid Neutrophils Fluid Lymphocytes Fluid Monocytes Fld Mesothelial Cells Fl Pathologist Comment Fluid Glucose Fluid Total Protein Fluid LDH Fluid Comment 2 Miscellaneous Cytology POC Glucose 223 H 109 132 H 11/10/19 11/10/19 11/10/19 05:51 06:15 06:15 WBC 6.8 RBC 3.57 L Hgb 11.5 L Hct 35.9 L MCV 100.6 H MCH 32.2 H MCHC 32.0 RDW Std Deviation 53.1 H RDW Coeff of Xenia 14.8 H Plt Count 424 MPV 12.7 H Neut % (Auto) Not Reportable Absolute Neuts (auto) 4.9 Absolute Lymphs (auto) 1.09 Total Counted 100 Neutrophils % (Manual) 68 Band Neutrophils % 4 Lymphocytes % (Manual) 16 L Monocytes % (Manual) 7 Eosinophils % (Manual) 3 Metamyelocytes % Myelocytes % 2 H Differential Comment Diff Path Review Reviewed Platelet Estimate ADEQUATE RBC Morphology NORM C+C Sodium 143 Potassium 3.8 Chloride 107 Carbon Dioxide 32.0 Anion Gap 4 L BUN 31 H Creatinine 0.49 L Estim Creat Clear Calc 51.56 Est GFR (MDRD) Af Amer 214 Est GFR (MDRD) Non-Af 177 BUN/Creatinine Ratio 62.8 H Glucose 141 H Calcium 7.9 L Phosphorus 2.5 Magnesium 2.2 Total Bilirubin 0.60 AST 43 H ALT 27 Alkaline Phosphatase 134 H Total Protein 5.3 L Albumin 1.4 L Globulin 3.9 Albumin/Globulin Ratio 0.4 L Fluid Source Fluid Color Fluid Appearance Fluid pH Fluid WBC Fluid RBC Fluid Tot Cell Count Fld Polynuclear WBCs # Fld Polynuclear WBCs % Fluid Mononuclear WBCs Fld Mononuclear WBCs % Fluid Neutrophils Fluid Lymphocytes Fluid Monocytes Fld Mesothelial Cells Fl Pathologist Comment Fluid Glucose Fluid Total Protein Fluid LDH Fluid Comment 2 Miscellaneous Cytology POC Glucose 141 H Microbiology 11/08/19 15:14 Fluid - Thoracentesis Fluid Gram Stain - Final 11/08/19 15:14 Fluid - Thoracentesis Fluid Body Fluid Culture - Preliminary No growth-Final to follow 11/08/19 15:14 Fluid - Thoracentesis Fluid Anaerobic Culture - Preliminary No growth in 48 hours. 11/08/19 10:46 Blood Culture (Wb) - Right Hand Blood Culture - Preliminary No growth in 48 hours. 11/08/19 10:30 Blood Culture (Wb) - Right Wrist Blood Culture - Preliminary No growth in 48 hours. 11/04/19 23:25 Blood Culture (Wb) - Right Hand Blood Culture - Final No growth in 5 days. 11/04/19 22:15 Blood Culture (Wb) - Pic Blood Culture - Final No growth in 5 days. Clinical Impression(s) from Imaging Studies Abdomen/Pelvis CT 11/04/19 22:27 IMPRESSION: 1. A new left mid abdominal PEG tube is present in the proximal one third aspect of the stomach. 2. A small amount of extraluminal air and tiny amounts of fluid are present in the left anterior intra-abdominal region directly adjacent to the portion of the stomach containing the PEG tube most likely related to recent placement procedure. 3. Test injection of the PEG tube with contrast in consultation with the service that placed the feeding tube can be performed to evaluate for possible extraluminal leakage. 4. Previously seen moderate bilateral pleural effusions are decreased in volume with a tiny amount seen on the right and a small amount remaining on the left. Electronically Signed: Ricky Das MD at 23:54 EDT , Service support , Chest X-Ray 11/04/19 23:00 IMPRESSION: 1. Chronic appearing scattered and consolidative fibrosis of both lungs, most prominent in the right upper lobe. 2. Cystic emphysematous changes Electronically Signed: Ricky Das MD at 23:33 EDT , Service support , Chest CTA 11/07/19 08:32 IMPRESSION: Moderate degree of bilateral pleural effusions with infiltration of the lung bases and new infiltrate in the right upper lobe superimposed on chronic emphysematous changes and bullous formation as well as pulmonary fibrosis. Electronically Signed: Flaco Gale, at 12:25 EDT , Service support , Abdomen CT 11/07/19 08:33 IMPRESSION: Stable examination. The PEG tube is not seen at this time. Electronically Signed: Flaco Gale, at 12:29 EDT , Service support , Chest X-Ray 11/08/19 05:00 IMPRESSION: Worsening bilateral airspace disease especially within the right lung likely representing pneumonia. Kyphoscoliosis with underlying chronic lung disease. at 0603 Reported and signed by: Yovany Workman MD Electronically Signed: Yovany Workman MD at 6:02 EDT Tel , Service support , Abdomen CT 11/08/19 08:19 IMPRESSION: A PEG tube is seen within the inferior portion of the stomach as described. No extravasation of oral contrast. Stable small amount of free extraluminal air adjacent to the medial aspect of the left lobe of the liver. Electronically Signed: Flaco Gale at 10:28 EDT , Service support , Thoracentesis Ultrasound 11/08/19 10:15 IMPRESSION: Ultrasound-guided right thoracentesis.. Electronically Signed: Flaco Gale at 15:20 EDT , Service support , Chest X-Ray 11/08/19 14:52 IMPRESSION: Status post right thoracentesis with a 10% right pneumothorax. Electronically Signed: Flaco Gale, at 15:08 EDT , Service support , Chest X-Ray 11/08/19 17:01 IMPRESSION: Tiny residual right apical pneumothorax with interval improvement status post chest tube placement. Findings otherwise unchanged since previous study Electronically Signed: Jaciel Rodriguez MD at 17:26 EDT , Service support , Chest X-Ray 11/09/19 05:00 IMPRESSION: Slight increase in size of right pleural effusion. Right pleural drain remains. Severe bilateral airspace disease persists. at 0526 Reported and signed by: Yovany Workman MD Electronically Signed: Yovany Workman MD at 5:25 EDT Tel , Service support , ADDENDUM: 11/09/19 0540 IMPRESSION: Slight increase in size of right pleural effusion. Right pleural drain remains. Severe bilateral airspace disease persists. at 0526 Reported and signed by: Yovany Workman MD N.B. : The above information has been verbally conveyed by Yovany Workman MD to Tanya Dorman RN, on 11/09/2019 05:33:42 (ET). Electronically Signed: Yovany Workman MD at 5:25 EDT Tel , Service support , Chest X-Ray 11/09/19 06:05 IMPRESSION: Persistent right-sided pneumothorax. Left pleural effusion and atelectasis. Diffuse interstitial infiltrates right greater than left. Electronically Signed: Mirela Mcallister MD at 6:30 EDT Tel , Service support , Chest X-Ray 11/09/19 11:40 IMPRESSION: Status post placement of a large bore chest tube with the tip in the medial apical portion of the right lung with minimal residual right pneumothorax. Electronically Signed: Flaco Gale, at 13:37 EDT , Service support , Chest X-Ray 11/10/19 05:10 IMPRESSION: Findings suggestive of for left pleural effusion and/or consolidation. Right upper lobe infiltrate. Right-sided chest tube tip in the right apex. No visualized pneumothorax. There is emphysema and chronic obstructive pulmonary disease. Electronically Signed: Mirela Mcallister MD at 6:06 EDT Tel , Service support , Current Medications Acetaminophen (Tylenol) 650 mg RECTAL Q4H PRN PRN PRN Reason: Pain Score 1-10/Temp > 100.7 F Last Admin: 11/08/19 18:18 Dose: 650 mg Documented by: Albuterol/Ipratropium (Duoneb) 3 ml INHALATION Q6HWA.RT [facility] Last Admin: 11/10/19 12:59 Dose: 3 ml Documented by: Aspirin (Aspirin, Baby) 81 mg GT DAILY@0800 [facility] Last Admin: 11/10/19 08:24 Dose: 81 mg Documented by: Calamine/Phenol (Calmoseptine Ointment) 1 applic TOPICAL BID [facility]; Protocol Last Admin: 11/10/19 08:24 Dose: 1 applicatio Documented by: Carvedilol (Coreg) 6.25 mg PO BID [facility] Last Admin: 11/10/19 08:24 Dose: 6.25 mg Documented by: Dextrose (D50w Syringe) 0 gm IV X1 PRN; Protocol PRN Reason: Hypoglycemia Furosemide (Lasix) 40 mg IV BID@1000,1800 [facility] Last Admin: 11/10/19 08:54 Dose: 40 mg Documented by: Glucagon () 1 mg IM .X1 PRN PRN Reason: Hypoglycemia Hydralazine HCl (Apresoline) 10 mg PO TID [facility] Last Admin: 11/10/19 05:53 Dose: 10 mg Documented by: Sodium Chloride () 250 mls @ 15 mls/hr IV .[id number] PRN PRN Reason: Saline Flush Sodium Chloride () 250 mls @ 15 mls/hr IV .[id number] PRN PRN Reason: Additional IVPB Infusion Meropenem 1 gm/ Sodium (Chloride) 120 mls @ 33 mls/hr IV Q8 [facility] Last Infusion: 11/10/19 09:35 Dose: Infused Documented by: Enteral Nutritional Formula (Vital Af 1.2 Arun Liquid) 1,000 mls @ 55 mls/hr GT .[id number] [facility] Last Admin: 11/08/19 17:25 Dose: 15 mls/hr Documented by: Multivitamins 10 ml/ Chromium/Copper/Manganese/Seleni/Zn 1 ml/ Folic Acid 1 mg/ Amino Acids/Electrolytes 2,011 mls @ 42 mls/hr IV .Q24H [facility] Stop: 11/10/19 15:47 Last Admin: 11/09/19 16:20 Dose: 42 mls/hr Documented by: Insulin Human Lispro (Humalog Kwikpen (Bkc)) 0 unit SC Q6 [facility]; Protocol Last Admin: 11/10/19 05:53 Dose: Not Given Documented by: Isosorbide Dinitrate (Isordil) 10 mg PO TID [facility] Last Admin: 11/10/19 05:52 Dose: 10 mg Documented by: Morphine Sulfate () 2 mg IV Q3H PRN PRN PRN Reason: Abdominal pain 6-1010 Last Admin: 11/10/19 09:03 Dose: 2 mg Documented by: Ondansetron HCl (Zofran) 4 mg IV Q8H PRN PRN PRN Reason: NAUSEA/VOMITING Sodium Chloride () 10 - 40 ml IV UD PRN PRN Reason: SALINE FLUSH Last Admin: 11/10/19 08:54 Dose: 30 ml Documented by: Medical Necessity - Tobacco Use Smoking Status: Former smoker Assessment/Plan All Active Problems (Last Reviewed 11/05/19 @ 01:[address] Adriano Benton MD) Cardiomyopathy (Acute) Pneumothorax on right (Acute) Pneumothorax, right (Acute) Acute on chronic systolic (congestive) heart failure (Acute) Severe sepsis (Acute) RECOMMENDATIONS: 1. Continue chest tube to wall suction. 2. Continue empiric antimicrobials. 3. Wean oxygen as tolerated. 4. Continue scheduled diuretic regimen. 5. Avoid BiPAP utilization. IMPRESSIONS: 1. Acute hypoxemic respiratory failure Most likely secondary to decompensated heart failure. The patient does have an elevated BNP and troponin. He is overall net positive for the hospital admission. Attempts at ultrasound-guided thoracentesis was successful in removing just under 1 L of borderline exudative pleural fluid. However, the patient sustained an iatrogenic pneumothorax and had to have a chest tube placed. Unfortunately, the patient continues to have a persistent air leak. At this time, agree with continuing attempts at volume optimization with diuretic therapy. Continue chest tube to wall suction and avoid BiPAP utilization. Wean oxygen as tolerated. I do suspect that the borderline exudative pleural fluid criteria is likely secondary to the use of diuretics. The patient's overall prognosis is quite poor. Per traditional Light's criteria, if at least one of the following three is fulfilled, the fluid would be considered an exudate: 1. Pleural fluid protein/serum protein ratio greater than 0.5 2. Pleural fluid LDH/serum LDH ratio greater than 0.6 3. Pleural fluid LDH greater than two thirds the upper limits of the laboratories normal serum LDH Based upon my review of the patient's pleural fluid analysis, along with serum LDH and total protein levels, the pleural fluid would be considered borderline exudative in nature. This note was generated with [email or web address] dictation software. It may contain incorrect words, spelling, and punctuation that were not noted in checking the note before signing. Inpatient E&M: 90815 Subs Hosp L2
[2019-11-10 13:31] LABS: Bedside Glucose 149 mg/dL (70-110)
[2019-11-10] MEDS: Vital AF 1.2 Cal Liquid 1,000 ML 55 ML GT (14:23)
[2019-11-10 17:30] LABS: Bedside Glucose 110 mg/dL (70-110)
[2019-11-10] MEDS: Isosorbide DN 10 MG Tablet GT (21:45)
[2019-11-10] MEDS: hydrALAZINE 10 MG Tablet GT (21:45)
[2019-11-10] MEDS: Carvedilol 6.25 MG Tablet GT (21:46)
[2019-11-10 23:45] LABS: Bedside Glucose 97 mg/dL (70-110)
--- NOTE | 2019-11-10 23:50 | NURSING ---
This RN titrated Vital AF from 35 mL/hr to 45 mL/hr at 2350 on 11/09
[2019-11-11] VITALS (25 sets, daily range): BP systolic 98–126; BP diastolic 54–80; PULSE 105–135; RESP 18–30; TEMP 36.7–37.3; O2SAT 92–99
[2019-11-11 03:00] LABS: Glucose, Body Fluid 185 mg/dL (40-70)
[2019-11-11] MEDS: Morphine 2 MG/ML Syringe IV ×3 (04:07→20:06)
[2019-11-11] MEDS: 0.9% Saline Lock 10 ML Syringe IV ×5 (04:07→20:06)
[2019-11-11] MEDS: hydrALAZINE 10 MG Tablet GT ×3 (06:15→21:22)
[2019-11-11] MEDS: Isosorbide DN 10 MG Tablet GT ×3 (06:16→21:23)
[2019-11-11 06:20] LABS: Bedside Glucose 115 mg/dL (70-110)
[2019-11-11 06:51] LABS: Hematocrit 33.6 % (40-54); Hemoglobin 10.7 g/dL (13.0-16.5); Mean Corp Hgb Conc 31.8 g/dL (32-36); Mean Corpuscular Hgb 31.8 pg (27.0-32.0); Mean Corpuscular Volume 99.7 fL (80-94); Mean Platelet Vol. 12.6 fl (6.2-12.0); Platelet Count 474 K/mm3 (150-450); RBC Distribution Width CV 14.8 % (11.6-14.6); RBC Distribution Width SD 52.9 fl (35.1-43.9); Red Blood Count 3.37 M/mm3 (4.6-6.2); White Blood Count 8.3 K/mm3 (4.4-11.0)
[2019-11-11] MEDS: Ipratropium/Albuterol Sulfate 3 ML AMPUL.NEB INHALATION ×3 (07:06→18:46)
[2019-11-11 07:19] LABS: ALB/GLOB Ratio 0.3 RATIO (0.9-2.4); AST(SGOT) 48 U/L (15-37); Alanine Aminotransfer ALT/SGPT 35 U/L (16-61); Albumin, Serum 1.3 g/dL (3.2-5.0); Alkaline Phosphatase 170 U/L (45-117); Anion Gap 4 (5-15); BUN 34 mg/dL (7-18); BUN/Creat Ratio 82.5 RATIO (10-20); Chloride 103 mmol/L (98-107); Creatinine, Serum 0.41 mg/dL (0.70-1.30); EST Glomerular Filtration Rate 218 mL/min (>60); Est Glom Filt Rate - Afr Amer 264 mL/min (>60); Estimated Creatinine Clearance 52.04 ml/min; Globulin 4.1 g/dL (2.2-4.2); Glucose 120 mg/dL (74-106); Potassium 3.2 mmol/L (3.5-5.1); Protein, Total 5.4 g/dL (6.4-8.2); Sodium Level 143 mmol/L (136-145)
[2019-11-11] MEDS: Potassium Chloride 10mEq/100mL 10 MEQ/100 ML IV.SOLN. 100 MEQ IV BOLUS ×4 (10:08→13:48)
[2019-11-11] MEDS: Furosemide 40 MG/4 ML Vial IV ×2 (10:09→17:21)
--- NOTE | 2019-11-11 10:47 | PCM.PN.PUL ---
Patient Problems: Active and Suspected Problems (Last Reviewed 11/05/19 @ 01:[address] Adriano Benton MD) Cardiomyopathy (Acute) Pneumothorax on right (Acute) Pneumothorax, right (Acute) Subjective: The patient was seen and examined at the bedside this morning. Events from the last 24 hours have been reviewed. The patient is currently afebrile, hemodynamically stable and maintaining appropriate oxygen saturations on 10 L/min. Although improved, the patient continues to have a small air leak from his chest tube this morning. Objective: The patient's most recent lab work, culture data and imaging studies have all been personally reviewed. Blood and urine cultures have been unrevealing to date. Pleural fluid Gram stain revealed no evidence of organisms. - Physical Exam Vitals/I&O's: Vital Signs Temp Pulse Resp BP Pulse Ox 98.7 F 114 H 18 98/57 L 92 11/11/19 07:00 11/11/19 07:21 11/11/19 07:07 11/11/19 07:00 11/11/19 07:07 Oxygen Flow Rate (L/min) [3] 12 Oxygen Flow Rate (L/min) [2] 12 Oxygen Flow Rate (L/min) [1 ( 12 Initial Baseline)] Oxygen Flow Rate (L/min) 10 Oxygen Delivery Method [3] Nasal Cannula Oxygen Delivery Method [2] Nasal Cannula Oxygen Delivery Method [1 ( Nasal Cannula Initial Baseline)] Oxygen Delivery Method Nasal Cannula Weight: 119 lb 11.376 oz Body Mass Index (BMI) 19.1 Intake and Output for Last 24 Hours 11/09/19 11/10/19 11/11/19 23:59 23:59 23:59 Intake Total 2475 / 2475 2615.0 / 2615.0 398.5 / 398.5 Output Total 635 / 635 45 / 45 25 / 25 Balance 1840 / 1840 2570.0 / 2570.0 373.5 / 373.5 General: Alert, No apparent distress HEENT: Atraumatic, Normocephalic Oral: Moist Mucosa, - - Poor dentition Neck: Supple, No Nodes, Trachea Midline Lungs: Diminished, - - Stable right chest tube Cardiovascular: Normal S1, Normal S2, No murmurs, Tachycardic Abdomen: Bowel Sounds Present, Soft, Non Tender, - - +PEG Extremities: No clubbing, No cyanosis, No edema Skin: No breakdown Musculoskeletal: No Tenderness to Palpation of Joints or Extremities, Cachexia Lymphatic: No Cervical, Supraclavicular, or Inguinal Adenopathy Neurological: Neuro grossly intact Psych/Mental Status: Normal Affect Labs (Last 48 Hours) 11/08/19 11/08/19 11/09/19 15:14 15:14 05:20 WBC RBC Hgb Hct MCV MCH MCHC RDW Std Deviation RDW Coeff of Xenia Plt Count MPV Neut % (Auto) Absolute Neuts (auto) Absolute Lymphs (auto) Total Counted Neutrophils % (Manual) Band Neutrophils % Lymphocytes % (Manual) Monocytes % (Manual) Eosinophils % (Manual) Myelocytes % Diff Path Review Reviewed Platelet Estimate RBC Morphology Sodium Potassium Chloride Carbon Dioxide Anion Gap BUN Creatinine Estim Creat Clear Calc Est GFR (MDRD) Af Amer Est GFR (MDRD) Non-Af BUN/Creatinine Ratio Glucose Calcium Phosphorus Magnesium Total Bilirubin AST ALT Alkaline Phosphatase Total Protein Albumin Globulin Albumin/Globulin Ratio Fl Pathologist Comment Reviewed Fluid Glucose 185 H POC Glucose 11/09/19 11/09/19 11/09/19 11:46 18:10 23:49 WBC RBC Hgb Hct MCV MCH MCHC RDW Std Deviation RDW Coeff of Xenia Plt Count MPV Neut % (Auto) Absolute Neuts (auto) Absolute Lymphs (auto) Total Counted Neutrophils % (Manual) Band Neutrophils % Lymphocytes % (Manual) Monocytes % (Manual) Eosinophils % (Manual) Myelocytes % Diff Path Review Platelet Estimate RBC Morphology Sodium Potassium Chloride Carbon Dioxide Anion Gap BUN Creatinine Estim Creat Clear Calc Est GFR (MDRD) Af Amer Est GFR (MDRD) Non-Af BUN/Creatinine Ratio Glucose Calcium Phosphorus Magnesium Total Bilirubin AST ALT Alkaline Phosphatase Total Protein Albumin Globulin Albumin/Globulin Ratio Fl Pathologist Comment Fluid Glucose POC Glucose 223 H 109 132 H 11/10/19 11/10/19 11/10/19 05:51 06:15 06:15 WBC 6.8 RBC 3.57 L Hgb 11.5 L Hct 35.9 L MCV 100.6 H MCH 32.2 H MCHC 32.0 RDW Std Deviation 53.1 H RDW Coeff of Xenia 14.8 H Plt Count 424 MPV 12.7 H Neut % (Auto) Not Reportable Absolute Neuts (auto) 4.9 Absolute Lymphs (auto) 1.09 Total Counted 100 Neutrophils % (Manual) 68 Band Neutrophils % 4 Lymphocytes % (Manual) 16 L Monocytes % (Manual) 7 Eosinophils % (Manual) 3 Myelocytes % 2 H Diff Path Review Reviewed Platelet Estimate ADEQUATE RBC Morphology NORM C+C Sodium 143 Potassium 3.8 Chloride 107 Carbon Dioxide 32.0 Anion Gap 4 L BUN 31 H Creatinine 0.49 L Estim Creat Clear Calc 51.56 Est GFR (MDRD) Af Amer 214 Est GFR (MDRD) Non-Af 177 BUN/Creatinine Ratio 62.8 H Glucose 141 H Calcium 7.9 L Phosphorus 2.5 Magnesium 2.2 Total Bilirubin 0.60 AST 43 H ALT 27 Alkaline Phosphatase 134 H Total Protein 5.3 L Albumin 1.4 L Globulin 3.9 Albumin/Globulin Ratio 0.4 L Fl Pathologist Comment Fluid Glucose POC Glucose 141 H 11/10/19 11/10/19 11/10/19 13:28 17:25 23:40 WBC RBC Hgb Hct MCV MCH MCHC RDW Std Deviation RDW Coeff of Xenia Plt Count MPV Neut % (Auto) Absolute Neuts (auto) Absolute Lymphs (auto) Total Counted Neutrophils % (Manual) Band Neutrophils % Lymphocytes % (Manual) Monocytes % (Manual) Eosinophils % (Manual) Myelocytes % Diff Path Review Platelet Estimate RBC Morphology Sodium Potassium Chloride Carbon Dioxide Anion Gap BUN Creatinine Estim Creat Clear Calc Est GFR (MDRD) Af Amer Est GFR (MDRD) Non-Af BUN/Creatinine Ratio Glucose Calcium Phosphorus Magnesium Total Bilirubin AST ALT Alkaline Phosphatase Total Protein Albumin Globulin Albumin/Globulin Ratio Fl Pathologist Comment Fluid Glucose POC Glucose 149 H 110 97 11/11/19 11/11/19 11/11/19 06:12 06:15 06:15 WBC 8.3 RBC 3.37 L Hgb 10.7 L Hct 33.6 L MCV 99.7 H MCH 31.8 MCHC 31.8 L RDW Std Deviation 52.9 H RDW Coeff of Xenia 14.8 H Plt Count 474 H MPV 12.6 H Neut % (Auto) Absolute Neuts (auto) Absolute Lymphs (auto) Total Counted Neutrophils % (Manual) Band Neutrophils % Lymphocytes % (Manual) Monocytes % (Manual) Eosinophils % (Manual) Myelocytes % Diff Path Review Platelet Estimate RBC Morphology Sodium 143 Potassium 3.2 L Chloride 103 Carbon Dioxide 36.0 H Anion Gap 4 L BUN 34 H Creatinine 0.41 L Estim Creat Clear Calc 52.04 Est GFR (MDRD) Af Amer 264 Est GFR (MDRD) Non-Af 218 BUN/Creatinine Ratio 82.5 H Glucose 120 H Calcium 8.0 L Phosphorus Magnesium Total Bilirubin 0.60 AST 48 H ALT 35 Alkaline Phosphatase 170 H Total Protein 5.4 L Albumin 1.3 L Globulin 4.1 Albumin/Globulin Ratio 0.3 L Fl Pathologist Comment Fluid Glucose POC Glucose 115 H Microbiology 11/08/19 15:14 Fluid - Thoracentesis Fluid Gram Stain - Final 11/08/19 15:14 Fluid - Thoracentesis Fluid Body Fluid Culture - Preliminary No growth-Final to follow 11/08/19 15:14 Fluid - Thoracentesis Fluid Anaerobic Culture - Preliminary No growth in 48 hours. 11/08/19 10:46 Blood Culture (Wb) - Right Hand Blood Culture - Preliminary No growth in 48 hours. 11/08/19 10:30 Blood Culture (Wb) - Right Wrist Blood Culture - Preliminary No growth in 48 hours. 11/04/19 23:25 Blood Culture (Wb) - Right Hand Blood Culture - Final No growth in 5 days. 11/04/19 22:15 Blood Culture (Wb) - Pic Blood Culture - Final No growth in 5 days. Clinical Impression(s) from Imaging Studies Abdomen/Pelvis CT 11/04/19 22:27 IMPRESSION: 1. A new left mid abdominal PEG tube is present in the proximal one third aspect of the stomach. 2. A small amount of extraluminal air and tiny amounts of fluid are present in the left anterior intra-abdominal region directly adjacent to the portion of the stomach containing the PEG tube most likely related to recent placement procedure. 3. Test injection of the PEG tube with contrast in consultation with the service that placed the feeding tube can be performed to evaluate for possible extraluminal leakage. 4. Previously seen moderate bilateral pleural effusions are decreased in volume with a tiny amount seen on the right and a small amount remaining on the left. Electronically Signed: Ricky Das MD at 23:54 EDT , Service support , Chest X-Ray 11/04/19 23:00 IMPRESSION: 1. Chronic appearing scattered and consolidative fibrosis of both lungs, most prominent in the right upper lobe. 2. Cystic emphysematous changes Electronically Signed: Ricky Das MD at 23:33 EDT , Service support , Chest CTA 11/07/19 08:32 IMPRESSION: Moderate degree of bilateral pleural effusions with infiltration of the lung bases and new infiltrate in the right upper lobe superimposed on chronic emphysematous changes and bullous formation as well as pulmonary fibrosis. Electronically Signed: Flaco Gale, at 12:25 EDT , Service support , Abdomen CT 11/07/19 08:33 IMPRESSION: Stable examination. The PEG tube is not seen at this time. Electronically Signed: Flaco Gale, at 12:29 EDT , Service support , Chest X-Ray 11/08/19 05:00 IMPRESSION: Worsening bilateral airspace disease especially within the right lung likely representing pneumonia. Kyphoscoliosis with underlying chronic lung disease. at 0603 Reported and signed by: Yovany Workman MD Electronically Signed: Yovany Workman MD at 6:02 EDT Tel , Service support , Abdomen CT 11/08/19 08:19 IMPRESSION: A PEG tube is seen within the inferior portion of the stomach as described. No extravasation of oral contrast. Stable small amount of free extraluminal air adjacent to the medial aspect of the left lobe of the liver. Electronically Signed: Flaco Gale, at 10:28 EDT , Service support , Thoracentesis Ultrasound 11/08/19 10:15 IMPRESSION: Ultrasound-guided right thoracentesis.. Electronically Signed: Flaco Gale, at 15:20 EDT , Service support , Chest X-Ray 11/08/19 14:52 IMPRESSION: Status post right thoracentesis with a 10% right pneumothorax. Electronically Signed: Flaco Gale, at 15:08 EDT , Service support , Chest X-Ray 11/08/19 17:01 IMPRESSION: Tiny residual right apical pneumothorax with interval improvement status post chest tube placement. Findings otherwise unchanged since previous study Electronically Signed: Jaciel Rodriguez MD at 17:26 EDT , Service support , Chest X-Ray 11/09/19 05:00 IMPRESSION: Slight increase in size of right pleural effusion. Right pleural drain remains. Severe bilateral airspace disease persists. at 0526 Reported and signed by: Yovany Workman MD Electronically Signed: Yovany Workman MD at 5:25 EDT Tel , Service support , ADDENDUM: 11/09/19 0540 IMPRESSION: Slight increase in size of right pleural effusion. Right pleural drain remains. Severe bilateral airspace disease persists. at 0526 Reported and signed by: Yovany Workman MD N.B. : The above information has been verbally conveyed by Yovany Workman MD to Tanya Dorman RN, on 11/09/2019 05:33:42 (ET). Electronically Signed: Yovany Workman MD at 5:25 EDT Tel , Service support , Chest X-Ray 11/09/19 06:05 IMPRESSION: Persistent right-sided pneumothorax. Left pleural effusion and atelectasis. Diffuse interstitial infiltrates right greater than left. Electronically Signed: Mirela Mcallister MD at 6:30 EDT Tel , Service support , Chest X-Ray 11/09/19 11:40 IMPRESSION: Status post placement of a large bore chest tube with the tip in the medial apical portion of the right lung with minimal residual right pneumothorax. Electronically Signed: Flcao Gale, at 13:37 EDT , Service support , Chest X-Ray 11/10/19 05:10 IMPRESSION: Findings suggestive of for left pleural effusion and/or consolidation. Right upper lobe infiltrate. Right-sided chest tube tip in the right apex. No visualized pneumothorax. There is emphysema and chronic obstructive pulmonary disease. Electronically Signed: Mirela Mcallister MD at 6:06 EDT Tel , Service support , Current Medications Acetaminophen (Tylenol) 650 mg RECTAL Q4H PRN PRN PRN Reason: Pain Score 1-10/Temp > 100.7 F Last Admin: 11/08/19 18:18 Dose: 650 mg Documented by: Albuterol/Ipratropium (Duoneb) 3 ml INHALATION Q6HWA.RT [facility] Last Admin: 11/11/19 07:06 Dose: 3 ml Documented by: Aspirin (Aspirin, Baby) 81 mg GT DAILY@0800 [facility] Last Admin: 11/10/19 08:24 Dose: 81 mg Documented by: Calamine/Phenol (Calmoseptine Ointment) 1 applic TOPICAL BID [facility]; Protocol Last Admin: 11/10/19 21:46 Dose: 1 applicatio Documented by: Carvedilol (Coreg) 6.25 mg GT BID [facility] Last Admin: 11/10/19 21:46 Dose: 6.25 mg Documented by: Dextrose (D50w Syringe) 0 gm IV X1 PRN; Protocol PRN Reason: Hypoglycemia Furosemide (Lasix) 40 mg IV BID@1000,1800 [facility] Last Admin: 11/11/19 10:09 Dose: 40 mg Documented by: Glucagon () 1 mg IM .X1 PRN PRN Reason: Hypoglycemia Hydralazine HCl (Apresoline) 10 mg GT TID [facility] Last Admin: 11/11/19 06:15 Dose: 10 mg Documented by: Sodium Chloride () 250 mls @ 15 mls/hr IV .[id number] PRN PRN Reason: Saline Flush Sodium Chloride () 250 mls @ 15 mls/hr IV .[id number] PRN PRN Reason: Additional IVPB Infusion Meropenem 1 gm/ Sodium (Chloride) 120 mls @ 33 mls/hr IV Q8 [facility] Last Admin: 11/11/19 06:24 Dose: 33 mls/hr Documented by: Enteral Nutritional Formula (Vital Af 1.2 Arun Liquid) 1,000 mls @ 55 mls/hr GT .[id number] [facility] Last Admin: 11/10/19 14:23 Dose: 55 mls/hr Documented by: Potassium Chloride () 10 meq in 100 mls @ 100 mls/hr IV BOLUS Q1H [facility] Stop: 11/11/19 11:59 Last Admin: 11/11/19 10:08 Dose: 100 mls/hr Documented by: Insulin Human Lispro (Humalog Kwikpen (Bkc)) 0 unit SC Q6 [facility]; Protocol Last Admin: 11/11/19 06:15 Dose: Not Given Documented by: Isosorbide Dinitrate (Isordil) 10 mg GT TID [facility] Last Admin: 11/11/19 06:16 Dose: 10 mg Documented by: Morphine Sulfate () 2 mg IV Q3H PRN PRN PRN Reason: Abdominal pain 6-04/14 Last Admin: 11/11/19 04:07 Dose: 2 mg Documented by: Ondansetron HCl (Zofran) 4 mg IV Q8H PRN PRN PRN Reason: NAUSEA/VOMITING Potassium Chloride (K-Dur) 40 meq PO DAILYCM [facility] Stop: 11/13/19 08:01 Sodium Chloride () 10 - 40 ml IV UD PRN PRN Reason: SALINE FLUSH Last Admin: 11/11/19 10:09 Dose: 10 ml Documented by: Medical Necessity - Tobacco Use Smoking Status: Former smoker Assessment/Plan All Active Problems (Last Reviewed 11/05/19 @ 01:[address] Adriano Benton MD) Cardiomyopathy (Acute) Pneumothorax on right (Acute) Pneumothorax, right (Acute) Acute on chronic systolic (congestive) heart failure (Acute) Severe sepsis (Acute) RECOMMENDATIONS: 1. Continue chest tube to wall suction until air leak resolves. 2. Wean oxygen to maintain saturations at or above 90%. 3. Continue antimicrobials. 4. Continue Lasix. IMPRESSIONS: 1. Acute hypoxemic respiratory failure Most likely secondary to decompensated heart failure. The patient does have an elevated BNP and troponin. He is overall net positive for the hospital admission. Attempts at ultrasound-guided thoracentesis was successful in removing just under 1 L of borderline exudative pleural fluid. However, the patient sustained an iatrogenic pneumothorax and had to have a chest tube placed. Unfortunately, the patient continues to have a persistent air leak. At this time, agree with continuing attempts at volume optimization with diuretic therapy. Continue chest tube to wall suction and avoid BiPAP utilization. Wean oxygen as tolerated. I do suspect that the borderline exudative pleural fluid criteria is likely secondary to the use of diuretics. The patient's overall prognosis is quite poor. Per traditional Light's criteria, if at least one of the following three is fulfilled, the fluid would be considered an exudate: 1. Pleural fluid protein/serum protein ratio greater than 0.5 2. Pleural fluid LDH/serum LDH ratio greater than 0.6 3. Pleural fluid LDH greater than two thirds the upper limits of the laboratories normal serum LDH Based upon my review of the patient's pleural fluid analysis, along with serum LDH and total protein levels, the pleural fluid would be considered borderline exudative in nature. This note was generated with epicurioation software. It may contain incorrect words, spelling, and punctuation that were not noted in checking the note before signing. Inpatient E&M: 29743 Subs Hosp L2
[2019-11-11] MEDS: Carvedilol 6.25 MG Tablet GT ×2 (11:00→21:23)
[2019-11-11] MEDS: Aspirin 81 MG TAB.CHEW GT (11:00)
[2019-11-11] MEDS: Menthol/Lanolin/Calamine/Znox 113 GM Tube 1 APPLIC TOPICAL ×2 (11:05→21:22)
--- NOTE | 2019-11-11 11:16 | PN.CARD_ITS ---
Subjectve: The patient remains confused. He remains with a right-sided chest tube in place. Objective: Vital Signs Temp Pulse Resp BP Pulse Ox 98.7 F 114 H 18 98/57 L 92 11/11/19 07:00 11/11/19 07:21 11/11/19 07:07 11/11/19 07:00 11/11/19 07:07 Oxygen Flow Rate (L/min) [3] 12 Oxygen Flow Rate (L/min) [2] 12 Oxygen Flow Rate (L/min) [1 ( 12 Initial Baseline)] Oxygen Flow Rate (L/min) 10 Oxygen Delivery Method [3] Nasal Cannula Oxygen Delivery Method [2] Nasal Cannula Oxygen Delivery Method [1 ( Nasal Cannula Initial Baseline)] Oxygen Delivery Method Nasal Cannula Weight: 119 lb 11.376 oz Body Mass Index (BMI) 19.1 Intake and Output for Last 24 Hours 11/09/19 11/10/19 11/11/19 23:59 23:59 23:59 Intake Total 2475 / 2475 2615.0 / 2615.0 618.5 / 618.5 Output Total 635 / 635 45 / 45 25 / 25 Balance 1840 / 1840 2570.0 / 2570.0 593.5 / 593.5 General: Awake, Cooperative, No Acute Distress, Disoriented HEENT: Atraumatic, Normocephalic, PERRL, EOMI, Sclera Non Icteric Oral: Moist Mucosa Neck: Supple, Good ROM, No JVD Lungs: Diminished Kamlesh Bases Cardiovascular: Regular Rhythm, Normal S1, Normal S2 Vascular: No Carotid Bruits Abdomen: Bowel Sounds Present, Soft, Non Tender Extremities: No edema 11/11/19 06:15: WBC 8.3, RBC 3.37 L, Hgb 10.7 L, Hct 33.6 L, MCV 99.7 H, MCH 31.8, MCHC 31.8 L, Plt Count 474 H, MPV 12.6 H 11/11/19 06:15: Sodium 143, Potassium 3.2 L, Chloride 103, Carbon Dioxide 36.0 H , Anion Gap 4 L, BUN 34 H, Creatinine 0.41 L, Est GFR (MDRD) Af Amer 264, Est GFR (MDRD) Non-Af 218, BUN/Creatinine Ratio 82.5 H, Glucose 120 H, Calcium 8.0 L , Total Bilirubin 0.60 Rhythm: sinus rhythm / sinus tachycardia Medical Necessity - Tobacco Use Smoking Status: Former smoker Assessment/Plan 1. Acute respiratory distress The patient continues with acute respiratory related issues. The etiology may be multifactorial. From a cardiovascular standpoint there are concerns about diminished LV systolic function and the possibility of acute on chronic systolic mediated CHF. The same time the patient has underlying pulmonary disease which could lead to findings of his pulmonary hypertension and subsequent adverse pulmonary effects. The patient has now also undergone a right-sided thoracentesis with a subsequent right-sided pneumothorax. He now has a right-sided chest tube which has been upgraded to a larger diameter chest tube. From a cardiac standpoint he does need to continue to be monitored. He needs continued input from internal medicine as well as pulmonology. From a cardiac standpoint he will continue noninvasive evaluation and care. This will include medical management including diuretic therapy. Hopefully this will help his volume status which will help his underlying pulmonary disease process. 2. Acute on chronic systolic mediated CHF The patient appears to have evidence of diminished LV systolic function. This could lead to acute on chronic systolic mediated CHF. At the present time he will continue noninvasive evaluation and conservative medical management. This will include diuretic therapy. His other medications can be adjusted as needed. 3. Cardiomyopathy He does have diminished LV systolic function based upon his echocardiographic findings. It is unclear at this time whether he has a history of underlying CAD. His echocardiographic findings are as noted. At the moment he will continue medical management and support. 4. CAD The patient states he has a history of open heart surgery. He does not appear to demonstrate obvious physical examination findings or radiologic findings. He does have an indeterminate troponin. This may be related to a type II event brought out by his acute respiratory distress related issue. At the moment he will continue to be monitored and he will continue medical therapy. He does not appear to be an ideal candidate for any invasive cardiovascular evaluation or care at this time. 5. Hyperlipidemia He should continue risk factor evaluation care as deemed appropriate. 6. Hypertension His blood pressure can be followed and his medications can be adjusted as needed . 7. Diabetes mellitus He will continue under care of internal medicine. 8. COPD He does have a history of underlying COPD. He will need continued input from internal medicine and pulmonology. 9. Pneumothorax He is status post right-sided thoracentesis with a right-sided pneumothorax. Again he is status post right-sided chest tube placement. 10. Metabolic encephalopathy The patient is disoriented. Based upon the [facility] staff this was thought to be metabolic related. He will need continued evaluation care by internal medicine. Overall, this appears to be a ill debilitated patient with multiple medical issues. From a cardiac standpoint it would be recommended he continue his noninvasive evaluation and conservative medical therapy as he does not appear to be an ideal candidate for any invasive cardiovascular evaluation or care at this time. He will continue under evaluation and care by internal medicine, pulmonology, and general surgery with respect to his multiple medical issues and his chest tube. This note was generated using a voice recognition system and there may be incorrect words, spelling or punctuation that were not noted when reviewing the office note prior to saving.
--- NOTE | 2019-11-11 12:02 | CASEMGMT ---
Social Work SW spoke with physician who states pt will not be ready for discharge over the weekend. Phone call to Lisa in TCU that pt is not yet ready for discharge. Bed in TCU remains available for pt. JOSÉ MIGUEL Garcia
--- NOTE | 2019-11-11 12:35 | PN_ITS ---
<Silva Bonner - Last Filed: 11/11/19 12:52> Patient Problems: Active and Suspected Problems (Last Reviewed 11/05/19 @ 01:[address] Adriano Benton MD) Cardiomyopathy (Acute) Pneumothorax on right (Acute) Pneumothorax, right (Acute) Subjective: Patient seen and examined. Drowsy this morning. No apparent distress. - Physical Exam Vitals/I&O's: Vital Signs Temp Pulse Resp BP Pulse Ox 98.8 F 135 H 26 H 121/69 H 99 11/11/19 09:00 11/11/19 09:00 11/11/19 09:00 11/11/19 09:00 11/11/19 09:00 Oxygen Flow Rate (L/min) [3] 12 Oxygen Flow Rate (L/min) [2] 12 Oxygen Flow Rate (L/min) [1 ( 12 Initial Baseline)] Oxygen Flow Rate (L/min) 10 Oxygen Delivery Method [3] Nasal Cannula Oxygen Delivery Method [2] Nasal Cannula Oxygen Delivery Method [1 ( Nasal Cannula Initial Baseline)] Oxygen Delivery Method Nasal Cannula Weight: 119 lb 11.376 oz Body Mass Index (BMI) 19.1 Intake and Output for Last 24 Hours 11/09/19 11/10/19 11/11/19 23:59 23:59 23:59 Intake Total 2475 / 2475 2615.0 / 2615.0 718.5 / 718.5 Output Total 635 / 635 45 / 45 25 / 25 Balance 1840 / 1840 2570.0 / 2570.0 693.5 / 693.5 General: No apparent distress, Confused, - - Drowsy HEENT: Atraumatic, PERRLA, EOMI, Normocephalic Oral: Dry Mucosa Neck: Supple, No JVD, Negative Carotid Bruits Lungs: Diminished, Rhonchi, - - Right chest tube Cardiovascular: Regular rate, Regular Rhythm, Normal S1, Normal S2, Tachycardic Abdomen: Bowel Sounds Present, Soft, Non Tender, Non-Distended, - - PEG in place. Extremities: No clubbing, No cyanosis, No edema, Capillary Refill Less than 3 Seconds Skin: No rashes, No breakdown Musculoskeletal: No Tenderness to Palpation of Joints or Extremities, Cachexia, Muscle Wasting Neurological: Cranial nerves II-XII grossly intact, Neuro grossly intact Psych/Mental Status: Normal Affect Microbiology Past 72 Hours 11/08/19 15:14 Fluid - Thoracentesis Fluid Gram Stain - Final 11/08/19 15:14 Fluid - Thoracentesis Fluid Body Fluid Culture - Preliminary No growth-Final to follow 11/08/19 15:14 Fluid - Thoracentesis Fluid Anaerobic Culture - Preliminary No growth in 48 hours. 11/08/19 10:46 Blood Culture (Wb) - Right Hand Blood Culture - Preliminary No growth in 48 hours. 11/08/19 10:30 Blood Culture (Wb) - Right Wrist Blood Culture - Preliminary No growth in 48 hours. 11/04/19 23:25 Blood Culture (Wb) - Right Hand Blood Culture - Final No growth in 5 days. 11/04/19 22:15 Blood Culture (Wb) - Pic Blood Culture - Final No growth in 5 days. Laboratory Results 11/08/19 15:14: Fluid Glucose 185 H 11/10/19 13:28: POC Glucose 149 H 11/10/19 17:25: POC Glucose 110 11/10/19 23:40: POC Glucose 97 11/11/19 06:12: POC Glucose 115 H 11/11/19 06:15: WBC 8.3, RBC 3.37 L, Hgb 10.7 L, Hct 33.6 L, MCV 99.7 H, MCH 31.8, MCHC 31.8 L, RDW Std Deviation 52.9 H, RDW Coeff of Xenia 14.8 H, Plt Count 474 H, MPV 12.6 H 11/11/19 06:15: Sodium 143, Potassium 3.2 L, Chloride 103, Carbon Dioxide 36.0 H , Anion Gap 4 L, BUN 34 H, Creatinine 0.41 L, Estim Creat Clear Calc 52.04, Est GFR (MDRD) Af Amer 264, Est GFR (MDRD) Non-Af 218, BUN/Creatinine Ratio 82.5 H, Glucose 120 H, Calcium 8.0 L, Total Bilirubin 0.60, AST 48 H, ALT 35, Alkaline Phosphatase 170 H, Total Protein 5.4 L, Albumin 1.3 L, Globulin 4.1, Albumin/Globulin Ratio 0.3 L Current Medications Acetaminophen (Tylenol) 650 mg RECTAL Q4H PRN PRN PRN Reason: Pain Score 1-10/Temp > 100.7 F Last Admin: 11/08/19 18:18 Dose: 650 mg Documented by: Albuterol/Ipratropium (Duoneb) 3 ml INHALATION Q6HWA.RT [facility] Last Admin: 11/11/19 07:06 Dose: 3 ml Documented by: Aspirin (Aspirin, Baby) 81 mg GT DAILY@0800 [facility] Last Admin: 11/11/19 11:00 Dose: 81 mg Documented by: Calamine/Phenol (Calmoseptine Ointment) 1 applic TOPICAL BID [facility]; Protocol Last Admin: 11/11/19 11:05 Dose: 1 applicatio Documented by: Carvedilol (Coreg) 6.25 mg GT BID [facility] Last Admin: 11/11/19 11:00 Dose: 6.25 mg Documented by: Dextrose (D50w Syringe) 0 gm IV X1 PRN; Protocol PRN Reason: Hypoglycemia Furosemide (Lasix) 40 mg IV BID@1000,1800 [facility] Last Admin: 11/11/19 10:09 Dose: 40 mg Documented by: Glucagon () 1 mg IM .X1 PRN PRN Reason: Hypoglycemia Hydralazine HCl (Apresoline) 10 mg GT TID [facility] Last Admin: 11/11/19 06:15 Dose: 10 mg Documented by: Sodium Chloride () 250 mls @ 15 mls/hr IV .[id number] PRN PRN Reason: Saline Flush Sodium Chloride () 250 mls @ 15 mls/hr IV .[id number] PRN PRN Reason: Additional IVPB Infusion Meropenem 1 gm/ Sodium (Chloride) 120 mls @ 33 mls/hr IV Q8 [facility] Last Infusion: 11/11/19 10:50 Dose: Infused Documented by: Enteral Nutritional Formula (Vital Af 1.2 Arun Liquid) 1,000 mls @ 55 mls/hr GT .[id number] [facility] Last Admin: 11/10/19 14:23 Dose: 55 mls/hr Documented by: Insulin Human Lispro (Humalog Kwikpen (Bkc)) 0 unit SC Q6 [facility]; Protocol Last Admin: 11/11/19 06:15 Dose: Not Given Documented by: Isosorbide Dinitrate (Isordil) 10 mg GT TID [facility] Last Admin: 11/11/19 06:16 Dose: 10 mg Documented by: Morphine Sulfate () 2 mg IV Q3H PRN PRN PRN Reason: Abdominal pain 6-04/14 Last Admin: 11/11/19 04:07 Dose: 2 mg Documented by: Ondansetron HCl (Zofran) 4 mg IV Q8H PRN PRN PRN Reason: NAUSEA/VOMITING Potassium Chloride (K-Dur) 40 meq PO DAILYCM [facility] Stop: 11/13/19 08:01 Sodium Chloride () 10 - 40 ml IV UD PRN PRN Reason: SALINE FLUSH Last Admin: 11/11/19 10:09 Dose: 10 ml Documented by: Medical Necessity - Tobacco Use Smoking Status: Former smoker Assessment/Plan All Active Problems (Last Reviewed 11/05/19 @ 01:[address] Adriano Benton MD) Cardiomyopathy (Acute) Pneumothorax on right (Acute) Pneumothorax, right (Acute) Acute on chronic systolic (congestive) heart failure (Acute) Severe sepsis (Acute) 1. Acute hypoxic respiratory failure, multifactorial secondary to HCAP and acute on chronic systolic CHF- S/P thoracentesis 11/07 complicated by pneumothorax with right chest tube placement 11/07. Large bore chest tube in place with persistent air leak. Pleural fluid consistent with exudative based on pleural fluid analysis. Continue meropenem. ID following. Continue IV Lasix. Dr. Willson and Dr. Lynne following. Continue supplement oxygen to maintain O2 sat above 90%. Continues to require high flow oxygen. No BiPAP given pneumothorax. Cardiology following. Echocardiogram 11/07/2019 demonstrated an EF of 40%, pulmonary artery systolic pressure 50 mmHg, moderate pulmonary hypertension, mild to moderate mitral valve insufficiency, mild to moderate aortic valve insufficiency. Continue Lasix as noted above. 2. Severe sepsis, suspected secondary to HCAP-fever improved. Continue IV meropenem as noted above. 3. Dysphagia s/p PEG tube placement 5/- NPO. Continue PEG tube, dietitian consult. 4. Acute metabolic encephalopathy-secondary to #1/#2. Continue to treat underlying processes. 5. Abnormal troponin, demand ischemia as result of #1/#2-cardiology following. Continue aspirin, carvedilol. 6. Emphysema/COPD-no acute exacerbation. As needed aerosols. 7. Severe protein calorie malnutrition-dietitian consult. 8. Thrombocytopenia- resolved. Trend CBC. 9. Hypertension-stable, continue PRN labetalol, hydralazine. 10. Type 2 diabetes [id number] with sliding scale insulin. 11. Abdominal aortic aneurysm-as noted on recent CT abdomen, 5.1 cm. Recommend outpatient follow-up. DVT prophylaxis-SCDs. Pharmacologic prophylaxis on hold. Discharge planning: Prognosis remains poor. We will continue to discuss plan of care with patient's . This patient was seen by JOSE Dyer under the supervision of Dr. Mas. <Kvng Mas - Last Filed: 11/11/19 13:48> Subjective: Seen and examined. From respiratory standpoint, patient slightly better. Respiratory rate 18 to 20/min. Blood pressure 110/65 and heart rate 108/min. Still on 9 to 10 L of oxygen Objective: Physical exam findings General: Lethargic, intermittent confusion and disorientation. HEENT: Atraumatic, PERRLA, EOMI, Normocephalic Neck: Supple Lungs: Air entry severely diminished; slightly improved on the right lung patient had thoracocentesis and then pneumothorax. Wide bore chest tube percutaneous inserted on 11/09/2019. Air leak has decreased now small and intermittent air leak. Still patient short of breath but slightly better. Cardiovascular: Normal S1, Normal S2, No murmurs, Tachycardic Abdomen: Bowel Sounds Present, Soft, Non Tender, Non-Distended, Extremities: No edema, Capillary Refill Less than 3 Seconds Skin: No rashes Musculoskeletal: No Tenderness to Palpation of Joints or Extremities, Arthritic Changes Neurological: Drowsy and lethargic. - Physical Exam Vitals/I&O's: Vital Signs Temp Pulse Resp BP Pulse Ox 98.3 F 108 H 18 110/65 96 11/11/19 12:00 11/11/19 13:08 11/11/19 13:08 11/11/19 12:00 11/11/19 13:08 Oxygen Flow Rate (L/min) [3] 12 Oxygen Flow Rate (L/min) [2] 12 Oxygen Flow Rate (L/min) [1 ( 12 Initial Baseline)] Oxygen Flow Rate (L/min) 9 Oxygen Delivery Method [3] Nasal Cannula Oxygen Delivery Method [2] Nasal Cannula Oxygen Delivery Method [1 ( Nasal Cannula Initial Baseline)] Oxygen Delivery Method Nasal Cannula Weight: 119 lb 11.376 oz Body Mass Index (BMI) 19.1 Intake and Output for Last 24 Hours 11/09/19 11/10/19 11/11/19 23:59 23:59 23:59 Intake Total 2475 / 2475 2615.0 / 2615.0 718.5 / 718.5 Output Total 635 / 635 45 / 45 25 / 25 Balance 1840 / 1840 2570.0 / 2570.0 693.5 / 693.5 Microbiology Past 72 Hours 11/08/19 15:14 Fluid - Thoracentesis Fluid Gram Stain - Final 11/08/19 15:14 Fluid - Thoracentesis Fluid Body Fluid Culture - Preliminary No growth-Final to follow 11/08/19 15:14 Fluid - Thoracentesis Fluid Anaerobic Culture - Preliminary No growth in 48 hours. 11/08/19 10:46 Blood Culture (Wb) - Right Hand Blood Culture - Preliminary No growth in 48 hours. 11/08/19 10:30 Blood Culture (Wb) - Right Wrist Blood Culture - Preliminary No growth in 48 hours. 11/04/19 23:25 Blood Culture (Wb) - Right Hand Blood Culture - Final No growth in 5 days. 11/04/19 22:15 Blood Culture (Wb) - Pic Blood Culture - Final No growth in 5 days. Laboratory Results 11/08/19 15:14: Fluid Glucose 185 H 11/10/19 17:25: POC Glucose 110 11/10/19 23:40: POC Glucose 97 11/11/19 06:12: POC Glucose 115 H 11/11/19 06:15: WBC 8.3, RBC 3.37 L, Hgb 10.7 L, Hct 33.6 L, MCV 99.7 H, MCH 31.8, MCHC 31.8 L, RDW Std Deviation 52.9 H, RDW Coeff of Xenia 14.8 H, Plt Count 474 H, MPV 12.6 H 11/11/19 06:15: Sodium 143, Potassium 3.2 L, Chloride 103, Carbon Dioxide 36.0 H , Anion Gap 4 L, BUN 34 H, Creatinine 0.41 L, Estim Creat Clear Calc 52.04, Est GFR (MDRD) Af Amer 264, Est GFR (MDRD) Non-Af 218, BUN/Creatinine Ratio 82.5 H, Glucose 120 H, Calcium 8.0 L, Total Bilirubin 0.60, AST 48 H, ALT 35, Alkaline Phosphatase 170 H, Total Protein 5.4 L, Albumin 1.3 L, Globulin 4.1, Albumin/Globulin Ratio 0.3 L 11/11/19 12:46: POC Glucose 134 H 11/11/19 12:58: Procalcitonin 0.34 H Current Medications Acetaminophen (Tylenol) 650 mg RECTAL Q4H PRN PRN PRN Reason: Pain Score 1-10/Temp > 100.7 F Last Admin: 11/08/19 18:18 Dose: 650 mg Documented by: Albuterol/Ipratropium (Duoneb) 3 ml INHALATION Q6HWA.RT [facility] Last Admin: 11/11/19 13:08 Dose: 3 ml Documented by: Aspirin (Aspirin, Baby) 81 mg GT DAILY@0800 [facility] Last Admin: 11/11/19 11:00 Dose: 81 mg Documented by: Calamine/Phenol (Calmoseptine Ointment) 1 applic TOPICAL BID [facility]; Protocol Last Admin: 11/11/19 11:05 Dose: 1 applicatio Documented by: Carvedilol (Coreg) 6.25 mg GT BID [facility] Last Admin: 11/11/19 11:00 Dose: 6.25 mg Documented by: Dextrose (D50w Syringe) 0 gm IV X1 PRN; Protocol PRN Reason: Hypoglycemia Furosemide (Lasix) 40 mg IV BID@1000,1800 [facility] Last Admin: 11/11/19 10:09 Dose: 40 mg Documented by: Glucagon () 1 mg IM .X1 PRN PRN Reason: Hypoglycemia Hydralazine HCl (Apresoline) 10 mg GT TID [facility] Last Admin: 11/11/19 06:15 Dose: 10 mg Documented by: Sodium Chloride () 250 mls @ 15 mls/hr IV .[id number] PRN PRN Reason: Saline Flush Sodium Chloride () 250 mls @ 15 mls/hr IV .[id number] PRN PRN Reason: Additional IVPB Infusion Meropenem 1 gm/ Sodium (Chloride) 120 mls @ 33 mls/hr IV Q8 [facility] Last Infusion: 11/11/19 10:50 Dose: Infused Documented by: Enteral Nutritional Formula (Vital Af 1.2 Arun Liquid) 1,000 mls @ 55 mls/hr GT .[id number] [facility] Last Admin: 11/10/19 14:23 Dose: 55 mls/hr Documented by: Insulin Human Lispro (Humalog Kwikpen (Bkc)) 0 unit SC Q6 [facility]; Protocol Last Admin: 11/11/19 12:47 Dose: Not Given Documented by: Isosorbide Dinitrate (Isordil) 10 mg GT TID [facility] Last Admin: 11/11/19 06:16 Dose: 10 mg Documented by: Morphine Sulfate () 2 mg IV Q3H PRN PRN PRN Reason: Abdominal pain 6-04/14 Last Admin: 11/11/19 04:07 Dose: 2 mg Documented by: Ondansetron HCl (Zofran) 4 mg IV Q8H PRN PRN PRN Reason: NAUSEA/VOMITING Potassium Chloride (K-Dur) 40 meq PO DAILYCM [facility] Stop: 11/13/19 08:01 Sodium Chloride () 10 - 40 ml IV UD PRN PRN Reason: SALINE FLUSH Last Admin: 11/11/19 10:09 Dose: 10 ml Documented by: Assessment/Plan This patient was seen in conjunction with PROJECT DEVELOPMENT MANAGER, Silva. I have independently interviewed and examined the patient and reviewed pertinent history, examination findings, laboratory and plan of management. I have reviewed the note and agree with the documented findings with the few additional points. In brief, patient is admitted for acute metabolic encephalopathy probably secondary to intra-abdominal infection: Patient had free air under diaphragm on prior imaging but repeat CT abdomen did not show it. Subsequently patient had PEG tube on last Thursday and then had tachycardia. Repeat CT with oral contrast was done which reported stable but no PEG tube seen. CT chest did not show PE but bilateral pleural effusion, right more than left with underlying infiltrate and atelectasis. Chronic fibrosis and cystic and bullous appearance of e mphysematous disease. New infiltrate on right upper lobe. On IV cefepime. Vancomycin and Flagyl discontinued as patient did not had fever for last 3 days, blood cultures negative for more than 48 hours and urine culture negative. 11/07: Patient had right-sided ultrasound-guided thoracocentesis and about 1000 mL of imtiaz-colored fluid removed. The fluid was sent for thoracocentesis. Lites criteria is suggestive of exudate as fluid LDH is more than two third of upper limit of serum LDH probably secondary to diuretic effect although clinically seems transudate. Patient had pneumothorax and then had pigtail placed. Continues to have air leak. Pneumothorax better with small residual in right apex. 11/08: Goal of life discussed with the patient and his near the bedside along with surgeon Dr. Willson and SHARLA Garcia. Patient had right-sided chest tube placed after removal of pigtail catheter. 500 cc of straw-colored fluid was also removed. Patient still has air leak. Prognosis poor. CODE STATUS remains same DNR CC arrest with no intubation. 11/09: Patient remained tachycardic, tachypneic and severe hypoxia 100% nonrebreather. Prognosis.. Discussed with the patient's Janee Bhandari on phone and clinical update given. Still significant persistent air leak. Thoracocentesis fluid culture with no growth at 48 hours. Other infectious work-up negative. On empiric antibiotic, IV meropenem 11/10: Seems slight improvement in breathing although still critically ill on high FiO2. Hypokalemia, potassium being replaced. Poor prognosis explained to the patient's I have discussed my assessment with PROJECT DEVELOPMENT MANAGERSilva and orders have been reviewed Inpatient E&M: [id number] [facility] L3
[2019-11-11 12:51] LABS: Bedside Glucose 134 mg/dL (70-110)
--- NOTE | 2019-11-11 13:21 | PCM.PN.SRG ---
Patient Problems: Active and Suspected Problems (Last Reviewed 11/05/19 @ 01:[address] Adriano Benton MD) Cardiomyopathy (Acute) Pneumothorax on right (Acute) Pneumothorax, right (Acute) Subjective: Patient still has a small persistent air leak. Not complaining of any chest pain. Objective: Poor inspiratory effort. Chest tube is in good position. - Physical Exam Vitals/I&O's: Vital Signs Temp Pulse Resp BP Pulse Ox 98.3 F 108 H 20 H 110/65 98 11/11/19 12:00 11/11/19 12:00 11/11/19 12:00 11/11/19 12:00 11/11/19 12:00 Oxygen Flow Rate (L/min) [3] 12 Oxygen Flow Rate (L/min) [2] 12 Oxygen Flow Rate (L/min) [1 ( 12 Initial Baseline)] Oxygen Flow Rate (L/min) 10 Oxygen Delivery Method [3] Nasal Cannula Oxygen Delivery Method [2] Nasal Cannula Oxygen Delivery Method [1 ( Nasal Cannula Initial Baseline)] Oxygen Delivery Method Nasal Cannula Weight: 119 lb 11.376 oz Body Mass Index (BMI) 19.1 Intake and Output for Last 24 Hours 11/09/19 11/10/19 11/11/19 23:59 23:59 23:59 Intake Total 2475 / 2475 2615.0 / 2615.0 718.5 / 718.5 Output Total 635 / 635 45 / 45 25 / 25 Balance 1840 / 1840 2570.0 / 2570.0 693.5 / 693.5 Microbiology Past 72 Hours 11/08/19 15:14 Fluid - Thoracentesis Fluid Gram Stain - Final 11/08/19 15:14 Fluid - Thoracentesis Fluid Body Fluid Culture - Preliminary No growth-Final to follow 11/08/19 15:14 Fluid - Thoracentesis Fluid Anaerobic Culture - Preliminary No growth in 48 hours. 11/08/19 10:46 Blood Culture (Wb) - Right Hand Blood Culture - Preliminary No growth in 48 hours. 11/08/19 10:30 Blood Culture (Wb) - Right Wrist Blood Culture - Preliminary No growth in 48 hours. 11/04/19 23:25 Blood Culture (Wb) - Right Hand Blood Culture - Final No growth in 5 days. 11/04/19 22:15 Blood Culture (Wb) - Pic Blood Culture - Final No growth in 5 days. Laboratory Results 11/08/19 15:14: Fluid Glucose 185 H 11/10/19 13:28: POC Glucose 149 H 11/10/19 17:25: POC Glucose 110 11/10/19 23:40: POC Glucose 97 11/11/19 06:12: POC Glucose 115 H 11/11/19 06:15: WBC 8.3, RBC 3.37 L, Hgb 10.7 L, Hct 33.6 L, MCV 99.7 H, MCH 31.8, MCHC 31.8 L, RDW Std Deviation 52.9 H, RDW Coeff of Xenia 14.8 H, Plt Count 474 H, MPV 12.6 H 11/11/19 06:15: Sodium 143, Potassium 3.2 L, Chloride 103, Carbon Dioxide 36.0 H, Anion Gap 4 L, BUN 34 H, Creatinine 0.41 L, Estim Creat Clear Calc 52.04, Est GFR (MDRD) Af Amer 264, Est GFR (MDRD) Non-Af 218, BUN/Creatinine Ratio 82.5 H, Glucose 120 H, Calcium 8.0 L, Total Bilirubin 0.60, AST 48 H, ALT 35, Alkaline Phosphatase 170 H, Total Protein 5.4 L, Albumin 1.3 L, Globulin 4.1, Albumin/Globulin Ratio 0.3 L 11/11/19 12:46: POC Glucose 134 H 11/11/19 12:58: Procalcitonin Pending Current Medications Acetaminophen (Tylenol) 650 mg RECTAL Q4H PRN PRN PRN Reason: Pain Score 1-10/Temp > 100.7 F Last Admin: 11/08/19 18:18 Dose: 650 mg Documented by: Albuterol/Ipratropium (Duoneb) 3 ml INHALATION Q6HWA.RT [facility] Last Admin: 11/11/19 13:08 Dose: 3 ml Documented by: Aspirin (Aspirin, Baby) 81 mg GT DAILY@0800 [facility] Last Admin: 11/11/19 11:00 Dose: 81 mg Documented by: Calamine/Phenol (Calmoseptine Ointment) 1 applic TOPICAL BID [facility]; Protocol Last Admin: 11/11/19 11:05 Dose: 1 applicatio Documented by: Carvedilol (Coreg) 6.25 mg GT BID [facility] Last Admin: 11/11/19 11:00 Dose: 6.25 mg Documented by: Dextrose (D50w Syringe) 0 gm IV X1 PRN; Protocol PRN Reason: Hypoglycemia Furosemide (Lasix) 40 mg IV BID@1000,1800 [facility] Last Admin: 11/11/19 10:09 Dose: 40 mg Documented by: Glucagon () 1 mg IM .X1 PRN PRN Reason: Hypoglycemia Hydralazine HCl (Apresoline) 10 mg GT TID [facility] Last Admin: 11/11/19 06:15 Dose: 10 mg Documented by: Sodium Chloride () 250 mls @ 15 mls/hr IV .[id number] PRN PRN Reason: Saline Flush Sodium Chloride () 250 mls @ 15 mls/hr IV .[id number] PRN PRN Reason: Additional IVPB Infusion Meropenem 1 gm/ Sodium (Chloride) 120 mls @ 33 mls/hr IV Q8 [facility] Last Infusion: 11/11/19 10:50 Dose: Infused Documented by: Enteral Nutritional Formula (Vital Af 1.2 Arun Liquid) 1,000 mls @ 55 mls/hr GT .[id number] [facility] Last Admin: 11/10/19 14:23 Dose: 55 mls/hr Documented by: Insulin Human Lispro (Humalog Kwikpen (Bkc)) 0 unit SC Q6 [facility]; Protocol Last Admin: 11/11/19 12:47 Dose: Not Given Documented by: Isosorbide Dinitrate (Isordil) 10 mg GT TID [facility] Last Admin: 11/11/19 06:16 Dose: 10 mg Documented by: Morphine Sulfate () 2 mg IV Q3H PRN PRN PRN Reason: Abdominal pain 6-04/14 Last Admin: 11/11/19 04:07 Dose: 2 mg Documented by: Ondansetron HCl (Zofran) 4 mg IV Q8H PRN PRN PRN Reason: NAUSEA/VOMITING Potassium Chloride (K-Dur) [facility] Stop: 11/13/19 08:01 Sodium Chloride () 10 - 40 ml IV UD PRN PRN Reason: SALINE FLUSH Last Admin: 11/11/19 10:09 Dose: 10 ml Documented by: Medical Necessity - Tobacco Use Smoking Status: Former smoker Assessment/Plan All Active Problems (Last Reviewed 11/05/19 @ 01:[address] Adriano Benton MD) Cardiomyopathy (Acute) Pneumothorax on right (Acute) Pneumothorax, right (Acute) Acute on chronic systolic (congestive) heart failure (Acute) Severe sepsis (Acute) We will not obtain a chest x-ray until the air leak stops. Last chest x-ray showed the lung to be up. Hopefully this air leak will stop within the next 24 to 48 hours.
[2019-11-11 13:40] LABS: Procalcitonin 0.34 ng/mL (0.00-0.09)
--- NOTE | 2019-11-11 14:03 | PN.ID_ITS ---
Patient Problems: Active and Suspected Problems (Last Reviewed 11/05/19 @ 01:[address] Adriano Benton MD) Cardiomyopathy (Acute) Pneumothorax on right (Acute) Pneumothorax, right (Acute) Subjective: Feeling ok, some pain in chest with tube in place. No fever. - Physical Exam Vitals/I&O's: Vital Signs Temp Pulse Resp BP Pulse Ox 98.3 F 111 H 18 110/65 96 11/11/19 12:00 11/11/19 13:51 11/11/19 13:08 11/11/19 12:00 11/11/19 13:08 Oxygen Flow Rate (L/min) [3] 12 Oxygen Flow Rate (L/min) [2] 12 Oxygen Flow Rate (L/min) [1 ( 12 Initial Baseline)] Oxygen Flow Rate (L/min) 9 Oxygen Delivery Method [3] Nasal Cannula Oxygen Delivery Method [2] Nasal Cannula Oxygen Delivery Method [1 ( Nasal Cannula Initial Baseline)] Oxygen Delivery Method Nasal Cannula Weight: 54.3 kg Body Mass Index (BMI) 19.1 Intake and Output for Last 24 Hours 11/09/19 11/10/19 11/11/19 23:59 23:59 23:59 Intake Total 2475 / 2475 2615.0 / 2615.0 818.5 / 818.5 Output Total 635 / 635 45 / 45 25 / 25 Balance 1840 / 1840 2570.0 / 2570.0 793.5 / 793.5 General: Alert, Cooperative, No apparent distress Lungs: Rhonchi - R side Cardiovascular: Regular rate, Regular Rhythm Abdomen: Soft, Non Tender, Non-Distended Skin: No rashes Microbiology Past 72 Hours 11/08/19 15:14 Fluid - Thoracentesis Fluid Gram Stain - Final 11/08/19 15:14 Fluid - Thoracentesis Fluid Body Fluid Culture - Preliminary No growth-Final to follow 11/08/19 15:14 Fluid - Thoracentesis Fluid Anaerobic Culture - Preliminary No growth in 48 hours. 11/08/19 10:46 Blood Culture (Wb) - Right Hand Blood Culture - Preliminary No growth in 48 hours. 11/08/19 10:30 Blood Culture (Wb) - Right Wrist Blood Culture - Preliminary No growth in 48 hours. 11/04/19 23:25 Blood Culture (Wb) - Right Hand Blood Culture - Final No growth in 5 days. 11/04/19 22:15 Blood Culture (Wb) - Pic Blood Culture - Final No growth in 5 days. Laboratory Results 11/08/19 15:14: Fluid Glucose 185 H 11/10/19 17:25: POC Glucose 110 11/10/19 23:40: POC Glucose 97 11/11/19 06:12: POC Glucose 115 H 11/11/19 06:15: WBC 8.3, RBC 3.37 L, Hgb 10.7 L, Hct 33.6 L, MCV 99.7 H, MCH 31.8, MCHC 31.8 L, RDW Std Deviation 52.9 H, RDW Coeff of Xenia 14.8 H, Plt Count 474 H, MPV 12.6 H 11/11/19 06:15: Sodium 143, Potassium 3.2 L, Chloride 103, Carbon Dioxide 36.0 H , Anion Gap 4 L, BUN 34 H, Creatinine 0.41 L, Estim Creat Clear Calc 52.04, Est GFR (MDRD) Af Amer 264, Est GFR (MDRD) Non-Af 218, BUN/Creatinine Ratio 82.5 H, Glucose 120 H, Calcium 8.0 L, Total Bilirubin 0.60, AST 48 H, ALT 35, Alkaline Phosphatase 170 H, Total Protein 5.4 L, Albumin 1.3 L, Globulin 4.1, Albumin/Globulin Ratio 0.3 L 11/11/19 12:46: POC Glucose 134 H 11/11/19 12:58: Procalcitonin 0.34 H Current Medications Acetaminophen (Tylenol) 650 mg RECTAL Q4H PRN PRN PRN Reason: Pain Score 1-10/Temp > 100.7 F Last Admin: 11/08/19 18:18 Dose: 650 mg Documented by: Albuterol/Ipratropium (Duoneb) 3 ml INHALATION Q6HWA.RT [facility] Last Admin: 11/11/19 13:08 Dose: 3 ml Documented by: Aspirin (Aspirin, Baby) 81 mg GT DAILY@0800 [facility] Last Admin: 11/11/19 11:00 Dose: 81 mg Documented by: Calamine/Phenol (Calmoseptine Ointment) 1 applic TOPICAL BID [facility]; Protocol Last Admin: 11/11/19 11:05 Dose: 1 applicatio Documented by: Carvedilol (Coreg) 6.25 mg GT BID [facility] Last Admin: 11/11/19 11:00 Dose: 6.25 mg Documented by: Dextrose (D50w Syringe) 0 gm IV X1 PRN; Protocol PRN Reason: Hypoglycemia Furosemide (Lasix) 40 mg IV BID@1000,1800 [facility] Last Admin: 11/11/19 10:09 Dose: 40 mg Documented by: Glucagon () 1 mg IM .X1 PRN PRN Reason: Hypoglycemia Hydralazine HCl (Apresoline) 10 mg GT TID [facility] Last Admin: 11/11/19 13:51 Dose: 10 mg Documented by: Sodium Chloride () 250 mls @ 15 mls/hr IV .[id number] PRN PRN Reason: Saline Flush Sodium Chloride () 250 mls @ 15 mls/hr IV .[id number] PRN PRN Reason: Additional IVPB Infusion Meropenem 1 gm/ Sodium (Chloride) 120 mls @ 33 mls/hr IV Q8 [facility] Last Infusion: 11/11/19 10:50 Dose: Infused Documented by: Enteral Nutritional Formula (Vital Af 1.2 Arun Liquid) 1,000 mls @ 55 mls/hr GT .[id number] [facility] Last Admin: 11/10/19 14:23 Dose: 55 mls/hr Documented by: Insulin Human Lispro (Humalog Kwikpen (Bkc)) 0 unit SC Q6 [facility]; Protocol Last Admin: 11/11/19 12:47 Dose: Not Given Documented by: Isosorbide Dinitrate (Isordil) 10 mg GT TID [facility] Last Admin: 11/11/19 13:51 Dose: 10 mg Documented by: Morphine Sulfate () 2 mg IV Q3H PRN PRN PRN Reason: Abdominal pain 6-04/14 Last Admin: 11/11/19 13:47 Dose: 2 mg Documented by: Ondansetron HCl (Zofran) 4 mg IV Q8H PRN PRN PRN Reason: NAUSEA/VOMITING Potassium Chloride (K-Dur) 40 meq PO DAILYCM [facility] [place] Stop: 11/13/19 08:01 Sodium Chloride () 10 - 40 ml IV UD PRN PRN Reason: SALINE FLUSH Last Admin: 11/11/19 13:47 Dose: 10 ml Documented by: Medical Necessity - Tobacco Use Smoking Status: Former smoker Route of nutrition/ use of supplements: [] Nutritional Intake: [] IV Site: [] Moreira Catheter: [] - Assessment/Plan Antibiotics: [] Assessment/Plan: [] Active and Suspected Problems (Last Reviewed 11/05/19 @ 01:[address] Adriano Benton MD) Cardiomyopathy (Acute) Pneumothorax on right (Acute) Fever, pneumonia, pleural effusion - last admit concern that cefepime contributed to his encephalopathy. Mental status improved, on meropenem since 11/07. Fluid cx neg so far. PCT improved. Ok to stop meropenem in next 1-2 days. Will follow
[2019-11-11 15:28] LABS: pH, Body Fluid 11254 7.4 (Not Estab.)
[2019-11-11] MEDS: Vital AF 1.2 Cal Liquid 1,000 ML 55 ML GT (17:08)
[2019-11-11 17:35] LABS: Bedside Glucose 114 mg/dL (70-110)
[2019-11-11 23:36] LABS: Bedside Glucose 142 mg/dL (70-110)
[2019-11-12] VITALS (25 sets, daily range): BP systolic 106–136; BP diastolic 63–90; PULSE 107–144; RESP 19–28; TEMP 36.6–37.3; O2SAT 83–98
[2019-11-12] MEDS: 0.9% Saline Lock 10 ML Syringe IV ×3 (01:17→18:52)
[2019-11-12] MEDS: Morphine 2 MG/ML Syringe IV ×2 (01:17→18:52)
[2019-11-12] MEDS: Isosorbide DN 10 MG Tablet GT ×3 (06:26→22:31)
[2019-11-12] MEDS: hydrALAZINE 10 MG Tablet GT ×3 (06:26→22:30)
[2019-11-12 06:40] LABS: Bedside Glucose 136 mg/dL (70-110)
[2019-11-12] MEDS: Ipratropium/Albuterol Sulfate 3 ML AMPUL.NEB INHALATION ×2 (07:11→13:23)
--- NOTE | 2019-11-12 07:14 | PN_ITS ---
Patient Problems: Active and Suspected Problems (Last Reviewed 11/05/19 @ 01:[address] Adriano Benton MD) Cardiomyopathy (Acute) Pneumothorax on right (Acute) Pneumothorax, right (Acute) Subjective: The patient was seen and examined at the bedside this morning. Events from the last 24 hours have been reviewed. The patient is currently afebrile, hemodynamically stable and maintaining appropriate oxygen saturations on 5 L/min via nasal cannula. Mentation has improved. Chest tube remains to wall suction. Despite this, the patient does continue to have an air leak. Objective: The patient's most recent lab work, culture data and imaging studies have all been personally reviewed. Blood and urine cultures have been unrevealing to date. Pleural fluid Gram stain revealed no evidence of organisms. - Physical Exam Vitals/I&O's: Vital Signs Temp Pulse Resp BP Pulse Ox 98.7 F 114 H 20 H 136/73 H 96 11/12/19 06:00 11/12/19 06:26 11/12/19 06:00 11/12/19 06:26 11/12/19 06:00 Oxygen Flow Rate (L/min) [3] 12 Oxygen Flow Rate (L/min) [2] 12 Oxygen Flow Rate (L/min) [1 ( 12 Initial Baseline)] Oxygen Flow Rate (L/min) 5 Oxygen Delivery Method [3] Nasal Cannula Oxygen Delivery Method [2] Nasal Cannula Oxygen Delivery Method [1 ( Nasal Cannula Initial Baseline)] Oxygen Delivery Method Nasal Cannula Weight: 119 lb 7.849 oz Body Mass Index (BMI) 19.1 Intake and Output for Last 24 Hours 11/10/19 11/11/19 11/12/19 23:59 23:59 23:59 Intake Total 2615.0 / 2615.0 2241.45 / 2241.45 88.05 / 88.05 Output Total 45 / 45 115 / 115 Balance 2570.0 / 2570.0 2126.45 / 2126.45 68.05 / 68.05 General: Alert, No apparent distress HEENT: Atraumatic, Normocephalic Oral: Moist Mucosa Neck: Supple, No Nodes, Trachea Midline Lungs: Diminished, - - Stable right-sided chest tube Cardiovascular: Normal S1, Normal S2, Tachycardic Abdomen: Bowel Sounds Present, Soft, Non Tender, - - + PEG tube Extremities: No clubbing, No cyanosis, No edema Skin: - - No significant change from previous Musculoskeletal: Cachexia Lymphatic: No Cervical, Supraclavicular, or Inguinal Adenopathy Neurological: - - No focal neurological deficits. Psych/Mental Status: Normal Affect, Appropriate Labs (Last 48 Hours) 11/08/19 11/08/19 11/10/19 15:14 15:14 06:15 WBC RBC Hgb Hct MCV MCH MCHC RDW Std Deviation RDW Coeff of Xenia Plt Count MPV Absolute Neuts (auto) 4.9 Absolute Lymphs (auto) 1.09 Total Counted 100 Neutrophils % (Manual) 68 Band Neutrophils % 4 Lymphocytes % (Manual) 16 L Monocytes % (Manual) 7 Eosinophils % (Manual) 3 Myelocytes % 2 H Diff Path Review Reviewed Platelet Estimate ADEQUATE RBC Morphology NORM C+C Sodium Potassium Chloride Carbon Dioxide Anion Gap BUN Creatinine Estim Creat Clear Calc Est GFR (MDRD) Af Amer Est GFR (MDRD) Non-Af BUN/Creatinine Ratio Glucose Calcium Total Bilirubin AST ALT Alkaline Phosphatase Total Protein Albumin Globulin Albumin/Globulin Ratio Procalcitonin Fluid pH 7.4 Fluid Glucose 185 H POC Glucose 11/10/19 11/10/19 11/10/19 13:28 17:25 23:40 WBC RBC Hgb Hct MCV MCH MCHC RDW Std Deviation RDW Coeff of Xenia Plt Count MPV Absolute Neuts (auto) Absolute Lymphs (auto) Total Counted Neutrophils % (Manual) Band Neutrophils % Lymphocytes % (Manual) Monocytes % (Manual) Eosinophils % (Manual) Myelocytes % Diff Path Review Platelet Estimate RBC Morphology Sodium Potassium Chloride Carbon Dioxide Anion Gap BUN Creatinine Estim Creat Clear Calc Est GFR (MDRD) Af Amer Est GFR (MDRD) Non-Af BUN/Creatinine Ratio Glucose Calcium Total Bilirubin AST ALT Alkaline Phosphatase Total Protein Albumin Globulin Albumin/Globulin Ratio Procalcitonin Fluid pH Fluid Glucose POC Glucose 149 H 110 97 11/11/19 11/11/19 11/11/19 06:12 06:15 06:15 WBC 8.3 RBC 3.37 L Hgb 10.7 L Hct 33.6 L MCV 99.7 H MCH 31.8 MCHC 31.8 L RDW Std Deviation 52.9 H RDW Coeff of Xenia 14.8 H Plt Count 474 H MPV 12.6 H Absolute Neuts (auto) Absolute Lymphs (auto) Total Counted Neutrophils % (Manual) Band Neutrophils % Lymphocytes % (Manual) Monocytes % (Manual) Eosinophils % (Manual) Myelocytes % Diff Path Review Platelet Estimate RBC Morphology Sodium 143 Potassium 3.2 L Chloride 103 Carbon Dioxide 36.0 H Anion Gap 4 L BUN 34 H Creatinine 0.41 L Estim Creat Clear Calc 52.04 Est GFR (MDRD) Af Amer 264 Est GFR (MDRD) Non-Af 218 BUN/Creatinine Ratio 82.5 H Glucose 120 H Calcium 8.0 L Total Bilirubin 0.60 AST 48 H ALT 35 Alkaline Phosphatase 170 H Total Protein 5.4 L Albumin 1.3 L Globulin 4.1 Albumin/Globulin Ratio 0.3 L Procalcitonin Fluid pH Fluid Glucose POC Glucose 115 H 11/11/19 11/11/19 11/11/19 12:46 12:58 17:07 WBC RBC Hgb Hct MCV MCH MCHC RDW Std Deviation RDW Coeff of Xenia Plt Count MPV Absolute Neuts (auto) Absolute Lymphs (auto) Total Counted Neutrophils % (Manual) Band Neutrophils % Lymphocytes % (Manual) Monocytes % (Manual) Eosinophils % (Manual) Myelocytes % Diff Path Review Platelet Estimate RBC Morphology Sodium Potassium Chloride Carbon Dioxide Anion Gap BUN Creatinine Estim Creat Clear Calc Est GFR (MDRD) Af Amer Est GFR (MDRD) Non-Af BUN/Creatinine Ratio Glucose Calcium Total Bilirubin AST ALT Alkaline Phosphatase Total Protein Albumin Globulin Albumin/Globulin Ratio Procalcitonin 0.34 H Fluid pH Fluid Glucose POC Glucose 134 H 114 H 11/11/19 11/12/19 23:28 06:30 WBC RBC Hgb Hct MCV MCH MCHC RDW Std Deviation RDW Coeff of Xenia Plt Count MPV Absolute Neuts (auto) Absolute Lymphs (auto) Total Counted Neutrophils % (Manual) Band Neutrophils % Lymphocytes % (Manual) Monocytes % (Manual) Eosinophils % (Manual) Myelocytes % Diff Path Review Platelet Estimate RBC Morphology Sodium Potassium Chloride Carbon Dioxide Anion Gap BUN Creatinine Estim Creat Clear Calc Est GFR (MDRD) Af Amer Est GFR (MDRD) Non-Af BUN/Creatinine Ratio Glucose Calcium Total Bilirubin AST ALT Alkaline Phosphatase Total Protein Albumin Globulin Albumin/Globulin Ratio Procalcitonin Fluid pH Fluid Glucose POC Glucose 142 H 136 H Microbiology 11/08/19 15:14 Fluid - Thoracentesis Fluid Gram Stain - Final 11/08/19 15:14 Fluid - Thoracentesis Fluid Body Fluid Culture - Preliminary No growth-Final to follow 11/08/19 15:14 Fluid - Thoracentesis Fluid Anaerobic Culture - Preliminary No growth in 48 hours. 11/08/19 10:46 Blood Culture (Wb) - Right Hand Blood Culture - Preliminary No growth in 48 hours. 11/08/19 10:30 Blood Culture (Wb) - Right Wrist Blood Culture - Preliminary No growth in 48 hours. 11/04/19 23:25 Blood Culture (Wb) - Right Hand Blood Culture - Final No growth in 5 days. 11/04/19 22:15 Blood Culture (Wb) - Pic Blood Culture - Final No growth in 5 days. Clinical Impression(s) from Imaging Studies Abdomen/Pelvis CT 11/04/19 22:27 IMPRESSION: 1. A new left mid abdominal PEG tube is present in the proximal one third aspect of the stomach. 2. A small amount of extraluminal air and tiny amounts of fluid are present in the left anterior intra-abdominal region directly adjacent to the portion of the stomach containing the PEG tube most likely related to recent placement procedure. 3. Test injection of the PEG tube with contrast in consultation with the service that placed the feeding tube can be performed to evaluate for possible extraluminal leakage. 4. Previously seen moderate bilateral pleural effusions are decreased in volume with a tiny amount seen on the right and a small amount remaining on the left. Electronically Signed: Ricky Das MD at 23:54 EDT , Service support , Chest X-Ray 11/04/19 23:00 IMPRESSION: 1. Chronic appearing scattered and consolidative fibrosis of both lungs, most prominent in the right upper lobe. 2. Cystic emphysematous changes Electronically Signed: Ricky Das MD at 23:33 EDT , Service support , Chest CTA 11/07/19 08:32 IMPRESSION: Moderate degree of bilateral pleural effusions with infiltration of the lung bases and new infiltrate in the right upper lobe superimposed on chronic emphysematous changes and bullous formation as well as pulmonary fibrosis. Electronically Signed: Flaco Gale, at 12:25 EDT , Service support , Abdomen CT 11/07/19 08:33 IMPRESSION: Stable examination. The PEG tube is not seen at this time. Electronically Signed: Flaco Gale, at 12:29 EDT , Service support , Chest X-Ray 11/08/19 05:00 IMPRESSION: Worsening bilateral airspace disease especially within the right lung likely representing pneumonia. Kyphoscoliosis with underlying chronic lung disease. at 0603 Reported and signed by: Yovany Workman MD Electronically Signed: Yovany Workman MD at 6:02 EDT Tel , Service support , Abdomen CT 11/08/19 08:19 IMPRESSION: A PEG tube is seen within the inferior portion of the stomach as described. No extravasation of oral contrast. Stable small amount of free extraluminal air adjacent to the medial aspect of the left lobe of the liver. Electronically Signed: Flaco Gale, at 10:28 EDT , Service support , Thoracentesis Ultrasound 11/08/19 10:15 IMPRESSION: Ultrasound-guided right thoracentesis.. Electronically Signed: Flaco Gale, at 15:20 EDT , Service support , Chest X-Ray 11/08/19 14:52 IMPRESSION: Status post right thoracentesis with a 10% right pneumothorax. Electronically Signed: Flaco Gale at 15:08 EDT , Service support , Chest X-Ray 11/08/19 17:01 IMPRESSION: Tiny residual right apical pneumothorax with interval improvement status post chest tube placement. Findings otherwise unchanged since previous study Electronically Signed: Jaciel Rodriguez MD at 17:26 EDT , Service support , Chest X-Ray 11/09/19 05:00 IMPRESSION: Slight increase in size of right pleural effusion. Right pleural drain remains. Severe bilateral airspace disease persists. at 0526 Reported and signed by: Yovany Workman MD Electronically Signed: Yovany Workman MD at 5:25 EDT Tel , Service support , ADDENDUM: 11/09/19 0540 IMPRESSION: Slight increase in size of right pleural effusion. Right pleural drain remains. Severe bilateral airspace disease persists. at 0526 Reported and signed by: Yovany Workman MD N.B. : The above information has been verbally conveyed by Yovany Workman MD to Tanya Dorman RN, on 11/09/2019 05:33:42 (ET). Electronically Signed: Yovayn Workman MD at 5:25 EDT Tel , Service support , Chest X-Ray 11/09/19 06:05 IMPRESSION: Persistent right-sided pneumothorax. Left pleural effusion and atelectasis. Diffuse interstitial infiltrates right greater than left. Electronically Signed: Mirela Mcallister MD at 6:30 EDT Tel , Service support , Chest X-Ray 11/09/19 11:40 IMPRESSION: Status post placement of a large bore chest tube with the tip in the medial apical portion of the right lung with minimal residual right pneumothorax. Electronically Signed: Flaco Gale, at 13:37 EDT , Service support , Chest X-Ray 11/10/19 05:10 IMPRESSION: Findings suggestive of for left pleural effusion and/or consolidation. Right upper lobe infiltrate. Right-sided chest tube tip in the right apex. No visualized pneumothorax. There is emphysema and chronic obstructive pulmonary disease. Electronically Signed: Mirela Mcallister MD at 6:06 EDT Tel , Service support , Current Medications Acetaminophen (Tylenol) 650 mg RECTAL Q4H PRN PRN PRN Reason: Pain Score 1-10/Temp > 100.7 F Last Admin: 11/08/19 18:18 Dose: 650 mg Documented by: Albuterol/Ipratropium (Duoneb) 3 ml INHALATION Q6HWA.RT [facility] Last Admin: 11/12/19 07:11 Dose: 3 ml Documented by: Aspirin (Aspirin, Baby) 81 mg GT DAILY@0800 [facility] Last Admin: 11/11/19 11:00 Dose: 81 mg Documented by: Calamine/Phenol (Calmoseptine Ointment) 1 applic TOPICAL BID [facility]; Protocol Last Admin: 11/11/19 21:22 Dose: 1 applicatio Documented by: Carvedilol (Coreg) 6.25 mg GT BID [facility] Last Admin: 11/11/19 21:23 Dose: 6.25 mg Documented by: Dextrose (D50w Syringe) 0 gm IV X1 PRN; Protocol PRN Reason: Hypoglycemia Furosemide (Lasix) 40 mg IV BID@1000,1800 [facility] Last Admin: 11/11/19 17:21 Dose: 40 mg Documented by: Glucagon () 1 mg IM .X1 PRN PRN Reason: Hypoglycemia Hydralazine HCl (Apresoline) 10 mg GT TID [facility] Last Admin: 11/12/19 06:26 Dose: 10 mg Documented by: Sodium Chloride () 250 mls @ 15 mls/hr IV .[id number] PRN PRN Reason: Saline Flush Sodium Chloride () 250 mls @ 15 mls/hr IV .[id number] PRN PRN Reason: Additional IVPB Infusion Meropenem 1 gm/ Sodium (Chloride) 120 mls @ 33 mls/hr IV Q8 [facility] Last Admin: 11/12/19 06:31 Dose: 33 mls/hr Documented by: Enteral Nutritional Formula (Vital Af 1.2 Arun Liquid) 1,000 mls @ 55 mls/hr GT .[id number] [facility] Last Admin: 11/11/19 17:08 Dose: 55 mls/hr Documented by: Insulin Human Lispro (Humalog Kwikpen (Bkc)) 0 unit SC Q6 [facility]; Protocol Last Admin: 11/12/19 06:31 Dose: Not Given Documented by: Isosorbide Dinitrate (Isordil) 10 mg GT TID [facility] Last Admin: 11/12/19 06:26 Dose: 10 mg Documented by: Morphine Sulfate () 2 mg IV Q3H PRN PRN PRN Reason: Abdominal pain 6-04/14 Last Admin: 11/12/19 01:17 Dose: 2 mg Documented by: Ondansetron HCl (Zofran) 4 mg IV Q8H PRN PRN PRN Reason: NAUSEA/VOMITING Potassium Chloride (K-Dur) 40 meq PO DAILYCM [facility] Stop: 11/13/19 08:01 Sodium Chloride () 10 - 40 ml IV UD PRN PRN Reason: SALINE FLUSH Last Admin: 11/12/19 01:17 Dose: 20 ml Documented by: Medical Necessity - Tobacco Use Smoking Status: Former smoker Assessment/Plan All Active Problems (Last Reviewed 11/05/19 @ 01:[address] Adriano Benton MD) Cardiomyopathy (Acute) Pneumothorax on right (Acute) Pneumothorax, right (Acute) Acute on chronic systolic (congestive) heart failure (Acute) Severe sepsis (Acute) RECOMMENDATIONS: 1. Continue chest tube to wall suction until air leak resolves. 2. Wean oxygen to maintain saturations at or above 90%. 3. Continue antimicrobials. Meropenem can be discontinued tomorrow. 4. Continue Lasix. IMPRESSIONS: 1. Acute hypoxemic respiratory failure Most likely secondary to decompensated heart failure. The patient was noted to have an elevated BNP and troponin. He is overall net positive for the hospital admission. Attempts at ultrasound-guided thoracentesis was successful in removing just under 1 L of borderline exudative pleural fluid. However, the patient sustained an iatrogenic pneumothorax and had to have a chest tube placed. Unfortunately, the patient continues to have a persistent air leak. At this time, agree with continuing attempts at volume optimization with diuretic therapy. Continue chest tube to wall suction and avoid BiPAP utilization. Wean oxygen as tolerated. I do suspect that the borderline exudative pleural fluid criteria is likely secondary to the use of diuretics, as opposed to infectious in etiology. The patient's overall prognosis is quite poor. Empiric antimicrobials can be stopped tomorrow. If air leak from chest tube does not resolve in the near future, may need to consider transfer to tertiary care facility for thoracic surgery evaluation. This note was generated with [employer] dictation software. It may contain incorrect words, spelling, and punctuation that were not noted in checking the note before signing. Inpatient E&M: 35712 Subs Hosp L2
--- NOTE | 2019-11-12 07:15 | CPS ---
pt continues to take his NC off, Sats in 80's. Staff keep putting it back on him, reminding him of it's importance.
[2019-11-12 07:39] LABS: Hematocrit 36.5 % (40-54); Hemoglobin 11.5 g/dL (13.0-16.5); Mean Corp Hgb Conc 31.5 g/dL (32-36); Mean Corpuscular Hgb 31.3 pg (27.0-32.0); Mean Corpuscular Volume 99.5 fL (80-94); Mean Platelet Vol. 12.6 fl (6.2-12.0); Platelet Count 554 K/mm3 (150-450); RBC Distribution Width CV 14.7 % (11.6-14.6); RBC Distribution Width SD 52.2 fl (35.1-43.9); Red Blood Count 3.67 M/mm3 (4.6-6.2); White Blood Count 11.3 K/mm3 (4.4-11.0)
[2019-11-12 08:00] LABS: Anion Gap 5 (5-15); BUN 38 mg/dL (7-18); BUN/Creat Ratio 85.4 RATIO (10-20); Calcium,Total 8.5 mg/dL (8.5-10.1); Chloride 105 mmol/L (98-107); Creatinine, Serum 0.44 mg/dL (0.70-1.30); EST Glomerular Filtration Rate 199 mL/min (>60); Est Glom Filt Rate - Afr Amer 241 mL/min (>60); Estimated Creatinine Clearance 51.94 ml/min; Glucose 135 mg/dL (74-106); Magnesium 2.2 mg/dL (1.6-2.6); Potassium 3.1 mmol/L (3.5-5.1); Sodium Level 148 mmol/L (136-145)
--- NOTE | 2019-11-12 09:28 | PN.SURG_ITS ---
Patient Problems: Active and Suspected Problems (Last Reviewed 11/05/19 @ 01:[address] Adriano Benton MD) Cardiomyopathy (Acute) Pneumothorax on right (Acute) Pneumothorax, right (Acute) Subjective: No complaints this morning. Objective: Diminished breath sounds on the right side much smaller airleak today than previously. - Physical Exam Vitals/I&O's: Vital Signs Temp Pulse Resp BP Pulse Ox 98.7 F 115 H 23 H 136/73 H 92 11/12/19 06:00 11/12/19 07:12 11/12/19 07:12 11/12/19 06:26 11/12/19 07:16 Oxygen Flow Rate (L/min) [3] 12 Oxygen Flow Rate (L/min) [2] 12 Oxygen Flow Rate (L/min) [1 ( 12 Initial Baseline)] Oxygen Flow Rate (L/min) 5 Oxygen Delivery Method [3] Nasal Cannula Oxygen Delivery Method [2] Nasal Cannula Oxygen Delivery Method [1 ( Nasal Cannula Initial Baseline)] Oxygen Delivery Method Nasal Cannula Weight: 119 lb 7.849 oz Body Mass Index (BMI) 19.1 Intake and Output for Last 24 Hours 11/10/19 11/11/19 11/12/19 23:59 23:59 23:59 Intake Total 2615.0 / 2615.0 2241.45 / 2241.45 88.05 / 88.05 Output Total 45 / 45 115 / 115 20 Balance 2570.0 / 2570.0 2126.45 / 2126.45 68.05 / 68.05 Microbiology Past 72 Hours 11/08/19 15:14 Fluid - Thoracentesis Fluid Gram Stain - Final 11/08/19 15:14 Fluid - Thoracentesis Fluid Body Fluid Culture - Final Culture exhibits no growth. 11/08/19 15:14 Fluid - Thoracentesis Fluid Anaerobic Culture - Preliminary No growth in 48 hours. 11/08/19 10:46 Blood Culture (Wb) - Right Hand Blood Culture - Preliminary No growth in 48 hours. 11/08/19 10:30 Blood Culture (Wb) - Right Wrist Blood Culture - Preliminary No growth in 48 hours. 11/04/19 23:25 Blood Culture (Wb) - Right Hand Blood Culture - Final No growth in 5 days. 11/04/19 22:15 Blood Culture (Wb) - Pic Blood Culture - Final No growth in 5 days. Laboratory Results 11/08/19 15:14: Fluid pH 7.4 11/11/19 12:46: POC Glucose 134 H 11/11/19 12:58: Procalcitonin 0.34 H 11/11/19 17:07: POC Glucose 114 H 11/11/19 23:28: POC Glucose 142 H 11/12/19 06:30: POC Glucose 136 H 11/12/19 07:00: WBC 11.3 H, RBC 3.67 L, Hgb 11.5 L, Hct 36.5 L, MCV 99.5 H, MCH 31.3, MCHC 31.5 L, RDW Std Deviation 52.2 H, RDW Coeff of Xenia 14.7 H, Plt Count 554 H, MPV 12.6 H 11/12/19 07:00: Sodium 148 H, Potassium 3.1 L, Chloride 105, Carbon Dioxide 38.0 H, Anion Gap 5, BUN 38 H, Creatinine 0.44 L, Estim Creat Clear Calc 51.94, Est GFR (MDRD) Af Amer 241, Est GFR (MDRD) Non-Af 199, BUN/Creatinine Ratio 85.4 H, Glucose 135 H, Calcium 8.5, Magnesium 2.2 Current Medications Acetaminophen (Tylenol) 650 mg RECTAL Q4H PRN PRN PRN Reason: Pain Score 1-10/Temp > 100.7 F Last Admin: 11/08/19 18:18 Dose: 650 mg Documented by: Albuterol/Ipratropium (Duoneb) 3 ml INHALATION Q6HWA.RT [facility] Last Admin: 11/12/19 07:11 Dose: 3 ml Documented by: Aspirin (Aspirin, Baby) 81 mg GT DAILY@0800 [facility] Last Admin: 11/11/19 11:00 Dose: 81 mg Documented by: Calamine/Phenol (Calmoseptine Ointment) 1 applic TOPICAL BID [facility]; Protocol Last Admin: 11/11/19 21:22 Dose: 1 applicatio Documented by: Carvedilol (Coreg) 6.25 mg GT BID [facility] Last Admin: 11/11/19 21:23 Dose: 6.25 mg Documented by: Dextrose (D50w Syringe) 0 gm IV X1 PRN; Protocol PRN Reason: Hypoglycemia Furosemide (Lasix) 40 mg IV BID@1000,1800 [facility] Last Admin: 11/11/19 17:21 Dose: 40 mg Documented by: Glucagon () 1 mg IM .X1 PRN PRN Reason: Hypoglycemia Hydralazine HCl (Apresoline) 10 mg GT TID [facility] Last Admin: 11/12/19 06:26 Dose: 10 mg Documented by: Sodium Chloride () 250 mls @ 15 mls/hr IV .[id number] PRN PRN Reason: Saline Flush Sodium Chloride () 250 mls @ 15 mls/hr IV .[id number] PRN PRN Reason: Additional IVPB Infusion Meropenem 1 gm/ Sodium (Chloride) 120 mls @ 33 mls/hr IV Q8 [facility] Last Admin: 11/12/19 06:31 Dose: 33 mls/hr Documented by: Enteral Nutritional Formula (Vital Af 1.2 Arun Liquid) 1,000 mls @ 55 mls/hr GT .[id number] [facility] Last Admin: 11/11/19 17:08 Dose: 55 mls/hr Documented by: Insulin Human Lispro (Humalog Kwikpen (Bkc)) 0 unit SC Q6 [facility]; Protocol Last Admin: 11/12/19 06:31 Dose: Not Given Documented by: Isosorbide Dinitrate (Isordil) 10 mg GT TID [facility] Last Admin: 11/12/19 06:26 Dose: 10 mg Documented by: Morphine Sulfate () 2 mg IV Q3H PRN PRN PRN Reason: Abdominal pain 6-1010 Last Admin: 11/12/19 01:17 Dose: 2 mg Documented by: Ondansetron HCl (Zofran) 4 mg IV Q8H PRN PRN PRN Reason: NAUSEA/VOMITING Potassium Chloride (K-Dur) 40 meq PO DAILYCM [facility] Stop: 11/13/19 08:01 Sodium Chloride () 10 - 40 ml IV UD PRN PRN Reason: SALINE FLUSH Last Admin: 11/12/19 01:17 Dose: 20 ml Documented by: Medical Necessity - Tobacco Use Smoking Status: Former smoker Assessment/Plan All Active Problems (Last Reviewed 11/05/19 @ 01:[address] Adriano Benton MD) Cardiomyopathy (Acute) Pneumothorax on right (Acute) Pneumothorax, right (Acute) Acute on chronic systolic (congestive) heart failure (Acute) Severe sepsis (Acute) Hoping that we might be able to get him to [facility] tomorrow.
[2019-11-12] MEDS: Furosemide 40 MG/4 ML Vial IV (09:59)
[2019-11-12] MEDS: Aspirin 81 MG TAB.CHEW GT (10:00)
[2019-11-12] MEDS: Menthol/Lanolin/Calamine/Znox 113 GM Tube 1 APPLIC TOPICAL ×2 (10:00→22:24)
[2019-11-12] MEDS: Carvedilol 6.25 MG Tablet GT ×2 (10:00→20:10)
--- NOTE | 2019-11-12 12:11 | PCM.PROGNOTE ---
<Silva Bonner - Last Filed: 11/12/19 12:31> Patient Problems: Active and Suspected Problems (Last Reviewed 11/05/19 @ 01:[address] Adriano Benton MD) Cardiomyopathy (Acute) Pneumothorax on right (Acute) Pneumothorax, right (Acute) Subjective: Patient seen and examined. More alert today. Denies shortness of breath. Complains of pain with movement. Still remains intermittently confused. - Physical Exam Vitals/I&O's: Vital Signs Temp Pulse Resp BP Pulse Ox 98.7 F 115 H 23 H 136/73 H 92 11/12/19 06:00 11/12/19 07:12 11/12/19 07:12 11/12/19 06:26 11/12/19 07:16 Oxygen Flow Rate (L/min) [3] 12 Oxygen Flow Rate (L/min) [2] 12 Oxygen Flow Rate (L/min) [1 ( 12 Initial Baseline)] Oxygen Flow Rate (L/min) 5 Oxygen Delivery Method [3] Nasal Cannula Oxygen Delivery Method [2] Nasal Cannula Oxygen Delivery Method [1 ( Nasal Cannula Initial Baseline)] Oxygen Delivery Method Nasal Cannula Weight: 119 lb 7.849 oz Body Mass Index (BMI) 19.1 Intake and Output for Last 24 Hours 11/10/19 11/11/19 11/12/19 23:59 23:59 23:59 Intake Total 2615.0 / 2615.0 2241.45 / 2241.45 208.05 / 208.05 Output Total 45 / 45 115 / 115 Balance 2570.0 / 2570.0 2126.45 / 2126.45 188.05 / 188.05 General: Alert, Cooperative, No apparent distress HEENT: Atraumatic, PERRLA, EOMI, Normocephalic Oral: Dry Mucosa Neck: Supple, No JVD, Negative Carotid Bruits Lungs: Diminished, Rhonchi, - - Right chest tube Cardiovascular: Regular Rhythm, Normal S1, Normal S2, No murmurs, Tachycardic Abdomen: Bowel Sounds Present, Soft, Non Tender, - - PEG in place. Extremities: No clubbing, No cyanosis, No edema, Capillary Refill Less than 3 Seconds Skin: No rashes, No breakdown Musculoskeletal: No Tenderness to Palpation of Joints or Extremities Neurological: Cranial nerves II-XII grossly intact Psych/Mental Status: Normal Affect, Appropriate Microbiology Past 72 Hours 11/08/19 15:14 Fluid - Thoracentesis Fluid Gram Stain - Final 11/08/19 15:14 Fluid - Thoracentesis Fluid Body Fluid Culture - Final Culture exhibits no growth. 11/08/19 15:14 Fluid - Thoracentesis Fluid Anaerobic Culture - Preliminary No growth in 48 hours. 11/08/19 10:46 Blood Culture (Wb) - Right Hand Blood Culture - Preliminary No growth in 48 hours. 11/08/19 10:30 Blood Culture (Wb) - Right Wrist Blood Culture - Preliminary No growth in 48 hours. 11/04/19 23:25 Blood Culture (Wb) - Right Hand Blood Culture - Final No growth in 5 days. 11/04/19 22:15 Blood Culture (Wb) - Pic Blood Culture - Final No growth in 5 days. Laboratory Results 11/08/19 15:14: Fluid pH 7.4 11/11/19 12:46: POC Glucose 134 H 11/11/19 12:58: Procalcitonin 0.34 H 11/11/19 17:07: POC Glucose 114 H 11/11/19 23:28: POC Glucose 142 H 11/12/19 06:30: POC Glucose 136 H 11/12/19 07:00: WBC 11.3 H, RBC 3.67 L, Hgb 11.5 L, Hct 36.5 L, MCV 99.5 H, MCH 31.3, MCHC 31.5 L, RDW Std Deviation 52.2 H, RDW Coeff of Xenia 14.7 H, Plt Count 554 H, MPV 12.6 H 11/12/19 07:00: Sodium 148 H, Potassium 3.1 L, Chloride 105, Carbon Dioxide 38.0 H, Anion Gap 5, BUN 38 H, Creatinine 0.44 L, Estim Creat Clear Calc 51.94, Est GFR (MDRD) Af Amer 241, Est GFR (MDRD) Non-Af 199, BUN/Creatinine Ratio 85.4 H, Glucose 135 H, Calcium 8.5, Magnesium 2.2 Current Medications Acetaminophen (Tylenol) 650 mg RECTAL Q4H PRN PRN PRN Reason: Pain Score 1-10/Temp > 100.7 F Last Admin: 11/08/19 18:18 Dose: 650 mg Documented by: Albuterol/Ipratropium (Duoneb) 3 ml INHALATION Q6HWA.RT [facility] Last Admin: 11/12/19 07:11 Dose: 3 ml Documented by: Aspirin (Aspirin, Baby) 81 mg GT DAILY@0800 [facility] Last Admin: 11/12/19 10:00 Dose: 81 mg Documented by: Calamine/Phenol (Calmoseptine Ointment) 1 applic TOPICAL BID [facility]; Protocol Last Admin: 11/12/19 10:00 Dose: 1 applicatio Documented by: Carvedilol (Coreg) 6.25 mg GT BID [facility] Last Admin: 11/12/19 10:00 Dose: 6.25 mg Documented by: Dextrose (D50w Syringe) 0 gm IV X1 PRN; Protocol PRN Reason: Hypoglycemia Furosemide (Lasix) 40 mg IV BID@1000,1800 [facility] Last Admin: 11/12/19 09:59 Dose: 40 mg Documented by: Glucagon () 1 mg IM .X1 PRN PRN Reason: Hypoglycemia Hydralazine HCl (Apresoline) 10 mg GT TID [facility] Last Admin: 11/12/19 06:26 Dose: 10 mg Documented by: Sodium Chloride () 250 mls @ 15 mls/hr IV .[id number] PRN PRN Reason: Saline Flush Sodium Chloride () 250 mls @ 15 mls/hr IV .[id number] PRN PRN Reason: Additional IVPB Infusion Meropenem 1 gm/ Sodium (Chloride) 120 mls @ 33 mls/hr IV Q8 [facility] Last Infusion: 11/12/19 10:16 Dose: Infused Documented by: Enteral Nutritional Formula (Vital Af 1.2 Arun Liquid) 1,000 mls @ 55 mls/hr GT .[id number] [facility] Last Admin: 11/11/19 17:08 Dose: 55 mls/hr Documented by: Insulin Human Lispro (Humalog Kwikpen (Bkc)) 0 unit SC Q6 [facility]; Protocol Last Admin: 11/12/19 06:31 Dose: Not Given Documented by: Isosorbide Dinitrate (Isordil) 10 mg GT TID [facility] Last Admin: 11/12/19 06:26 Dose: 10 mg Documented by: Morphine Sulfate () 2 mg IV Q3H PRN PRN PRN Reason: Abdominal pain 6-04/14 Last Admin: 11/12/19 01:17 Dose: 2 mg Documented by: Ondansetron HCl (Zofran) 4 mg IV Q8H PRN PRN PRN Reason: NAUSEA/VOMITING Potassium Chloride (K-Dur) 40 meq PO BIDCM [facility] Stop: 11/14/19 17:01 Last Admin: 11/12/19 09:59 Dose: 40 meq Documented by: Sodium Chloride () 10 - 40 ml IV UD PRN PRN Reason: SALINE FLUSH Last Admin: 11/12/19 10:11 Dose: 10 ml Documented by: Medical Necessity - Tobacco Use Smoking Status: Former smoker Assessment/Plan All Active Problems (Last Reviewed 11/05/19 @ 01:[address] Adriano Benton MD) Cardiomyopathy (Acute) Pneumothorax on right (Acute) Pneumothorax, right (Acute) Acute on chronic systolic (congestive) heart failure (Acute) Severe sepsis (Acute) 1. Acute hypoxic respiratory failure, multifactorial secondary to HCAP and acute on chronic systolic CHF- S/P thoracentesis 11/07 complicated by pneumothorax with right chest tube placement 11/07. Large bore chest tube in place-. Pleural fluid consistent with exudative based on pleural fluid analysis. Continue meropenem. ID following. Continue IV Lasix. Dr. Willson and Dr. Lynne following. Continue supplement oxygen to maintain O2 sat above 90%. No BiPAP given pneumothorax. Cardiology following. Echocardiogram 11/07/2019 demonstrated an EF of 40%, pulmonary artery systolic pressure 50 mmHg, moderate pulmonary hypertension, mild to moderate mitral valve insufficiency, mild to moderate aortic valve insufficiency. Possible waterseal chest tube tomorrow given improvement in air leak. Reduce Lasix to once daily. 2. Severe sepsis, suspected secondary to HCAP-fever improved. Continue IV meropenem as noted above. 3. Dysphagia s/p PEG tube placement 5/- NPO. Continue PEG/tube feeds, dietitian consult. 4. Acute metabolic encephalopathy-secondary to #1/#2. Continue to treat underlying processes. 5. Abnormal troponin, demand ischemia as result of #1/#2-cardiology following. Continue aspirin, carvedilol. 6. Emphysema/COPD-no acute exacerbation. As needed aerosols. 7. Severe protein calorie malnutrition-dietitian consult. 8. Thrombocytopenia- resolved. Trend CBC. 9. Hypertension-stable, continue PRN labetalol, hydralazine. 10. Type 2 diabetes [id number]-[id number] with sliding scale insulin. 11. Abdominal aortic aneurysm-as noted on recent CT abdomen, 5.1 cm. Recommend outpatient follow-up. DVT prophylaxis-SCDs. Pharmacologic prophylaxis on hold. Discharge planning: Prognosis remains poor. We will continue to discuss plan of care with patient's . This patient was seen by JOSE Dyer under the supervision of Dr. Mas. <Kvng Mas - Last Filed: 11/12/19 14:15> Subjective: Seen and examined. Patient shortness of breath is improving but is still on 5 L of oxygen. Tachypnea respiratory rate 25. Patient is confused and disoriented. Air leak is much less now. Objective: Afebrile. Heart rate in 110s to 120s per minute. Blood pressure stable. On exam General: Lethargic, intermittent confusion and disorientation. HEENT: Atraumatic, PERRLA, EOMI, Normocephalic Neck: Supple Lungs: Air entry severely diminished; slightly improved on the right lung patient had thoracocentesis and then pneumothorax. Wide bore chest tube percutaneous inserted on 11/09/2019. Air leak has much decreased now with a small intermittent air leak. Hypoxia has improved. Cardiovascular: Normal S1, Normal S2, No murmurs, Tachycardic Abdomen: Bowel Sounds Present, Soft, Non Tender, Non-Distended, Extremities: No edema, Capillary Refill Less than 3 Seconds Skin: No rashes Musculoskeletal: No Tenderness to Palpation of Joints or Extremities, Arthritic Changes Neurological: Drowsy and lethargic. - Physical Exam Vitals/I&O's: Vital Signs Temp Pulse Resp BP Pulse Ox 98.8 F 110 H 25 H 121/68 H 96 11/12/19 11:00 11/12/19 13:44 11/12/19 13:23 11/12/19 11:00 11/12/19 11:00 Oxygen Flow Rate (L/min) [3] 12 Oxygen Flow Rate (L/min) [2] 12 Oxygen Flow Rate (L/min) [1 ( 12 Initial Baseline)] Oxygen Flow Rate (L/min) 5 Oxygen Delivery Method [3] Nasal Cannula Oxygen Delivery Method [2] Nasal Cannula Oxygen Delivery Method [1 ( Nasal Cannula Initial Baseline)] Oxygen Delivery Method Nasal Cannula Weight: 119 lb 7.849 oz Body Mass Index (BMI) 19.1 Intake and Output for Last 24 Hours 11/10/19 11/11/19 11/12/19 23:59 23:59 23:59 Intake Total 2615.0 / 2615.0 2241.45 / 2241.45 258.05 / 258.05 Output Total 45 / 45 115 / 115 Balance 2570.0 / 2570.0 2126.45 / 2126.45 238.05 / 238.05 Microbiology Past 72 Hours 11/08/19 15:14 Fluid - Thoracentesis Fluid Gram Stain - Final 11/08/19 15:14 Fluid - Thoracentesis Fluid Body Fluid Culture - Final Culture exhibits no growth. 11/08/19 15:14 Fluid - Thoracentesis Fluid Anaerobic Culture - Preliminary No growth in 48 hours. 11/08/19 10:46 Blood Culture (Wb) - Right Hand Blood Culture - Preliminary No growth in 48 hours. 11/08/19 10:30 Blood Culture (Wb) - Right Wrist Blood Culture - Preliminary No growth in 48 hours. 11/04/19 23:25 Blood Culture (Wb) - Right Hand Blood Culture - Final No growth in 5 days. 11/04/19 22:15 Blood Culture (Wb) - Pic Blood Culture - Final No growth in 5 days. Laboratory Results 11/08/19 15:14: Fluid pH 7.4 11/11/19 17:07: POC Glucose 114 H 11/11/19 23:28: POC Glucose 142 H 11/12/19 06:30: POC Glucose 136 H 11/12/19 07:00: WBC 11.3 H, RBC 3.67 L, Hgb 11.5 L, Hct 36.5 L, MCV 99.5 H, MCH 31.3, MCHC 31.5 L, RDW Std Deviation 52.2 H, RDW Coeff of Xenia 14.7 H, Plt Count 554 H, MPV 12.6 H 11/12/19 07:00: Sodium 148 H, Potassium 3.1 L, Chloride 105, Carbon Dioxide 38.0 H, Anion Gap 5, BUN 38 H, Creatinine 0.44 L, Estim Creat Clear Calc 51.94, Est GFR (MDRD) Af Amer 241, Est GFR (MDRD) Non-Af 199, BUN/Creatinine Ratio 85.4 H, Glucose 135 H, Calcium 8.5, Magnesium 2.2 11/12/19 11:58: POC Glucose 134 H Current Medications Acetaminophen (Tylenol) 650 mg RECTAL Q4H PRN PRN PRN Reason: Pain Score 1-10/Temp > 100.7 F Last Admin: 11/08/19 18:18 Dose: 650 mg Documented by: Albuterol/Ipratropium (Duoneb) 3 ml INHALATION Q6HWA.RT [facility] Last Admin: 11/12/19 13:23 Dose: 3 ml Documented by: Aspirin (Aspirin, Baby) 81 mg GT DAILY@0800 [facility] Last Admin: 11/12/19 10:00 Dose: 81 mg Documented by: Calamine/Phenol (Calmoseptine Ointment) 1 applic TOPICAL BID [facility]; Protocol Last Admin: 11/12/19 10:00 Dose: 1 applicatio Documented by: Carvedilol (Coreg) 6.25 mg GT BID [facility] Last Admin: 11/12/19 10:00 Dose: 6.25 mg Documented by: Dextrose (D50w Syringe) 0 gm IV X1 PRN; Protocol PRN Reason: Hypoglycemia Furosemide (Lasix) 40 mg IV DAILY [facility] Glucagon () 1 mg IM .X1 PRN PRN Reason: Hypoglycemia Hydralazine HCl (Apresoline) 10 mg GT TID [facility] Last Admin: 11/12/19 13:44 Dose: 10 mg Documented by: Sodium Chloride () 250 mls @ 15 mls/hr IV .[id number] PRN PRN Reason: Saline Flush Sodium Chloride () 250 mls @ 15 mls/hr IV .[id number] PRN PRN Reason: Additional IVPB Infusion Meropenem 1 gm/ Sodium (Chloride) 120 mls @ 33 mls/hr IV Q8 [facility] Last Admin: 11/12/19 13:43 Dose: 33 mls/hr Documented by: Enteral Nutritional Formula (Vital Af 1.2 Arun Liquid) 1,000 mls @ 55 mls/hr GT .[id number] [facility] Last Admin: 11/11/19 17:08 Dose: 55 mls/hr Documented by: Insulin Human Lispro (Humalog Kwikpen (Bkc)) 0 unit SC Q6 [facility]; Protocol Last Admin: 11/12/19 12:17 Dose: Not Given Documented by: Isosorbide Dinitrate (Isordil) 10 mg GT TID [facility] Last Admin: 11/12/19 13:44 Dose: 10 mg Documented by: Morphine Sulfate () 2 mg IV Q3H PRN PRN PRN Reason: Abdominal pain 6-1010 Last Admin: 11/12/19 01:17 Dose: 2 mg Documented by: Ondansetron HCl (Zofran) 4 mg IV Q8H PRN PRN PRN Reason: NAUSEA/VOMITING Potassium Chloride (K-Dur) 40 meq PO BIDCM [facility] Stop: 11/14/19 17:01 Last Admin: 11/12/19 09:59 Dose: 40 meq Documented by: Sodium Chloride () 10 - 40 ml IV UD PRN PRN Reason: SALINE FLUSH Last Admin: 11/12/19 10:11 Dose: 10 ml Documented by: Assessment/Plan This patient was seen in conjunction with HADOOP DEVELOPER, Silva. I have independently interviewed and examined the patient and reviewed pertinent history, examination findings, laboratory and plan of management. I have reviewed the note and agree with the documented findings with the few additional points. In brief, patient is admitted for acute metabolic encephalopathy probably secondary to intra-abdominal infection: Patient had free air under diaphragm on prior imaging but repeat CT abdomen did not show it. Subsequently patient had PEG tube on last Thursday and then had tachycardia. Repeat CT with oral contrast was done which reported stable but no PEG tube seen. CT chest did not show PE but bilateral pleural effusion, right more than left with underlying infiltrate and atelectasis. Chronic fibrosis and cystic and bullous appearance of emphysematous disease. New infiltrate on right upper lobe. On IV cefepime. Vancomycin and Flagyl discontinued as patient did not had fever for last 3 days, blood cultures negative for more than 48 hours and urine culture negative. 55: Patient had right-sided ultrasound-guided thoracocentesis and about 1000 mL of imtiaz-colored fluid removed. The fluid was sent for thoracocentesis. Light criteria is suggestive of exudate as fluid LDH is more than two third of upper limit of serum LDH probably secondary to diuretic effect although clinically seems transudate. Patient had pneumothorax and then had pigtail placed. Continues to have air leak. Pneumothorax better with small residual in right apex. 56: Goal of life discussed with the patient and his near the bedside along with surgeon Dr. Willson and SHARLA Garcia. Patient had right-sided chest tube placed after removal of pigtail catheter. 500 cc of straw-colored fluid was also removed. Patient still has air leak. Prognosis poor. CODE STATUS remains same DNR CC arrest with no intubation. 11/09: Patient remained tachycardic, tachypneic and severe hypoxia 100% nonrebreather. Prognosis.. Discussed with the patient's Janee Bhandari on phone and clinical update given. Still significant persistent air leak. Thoracocentesis fluid culture with no growth at 48 hours. Other infectious work-up negative. On empiric antibiotic, IV meropenem 11/10: Seems slight improvement in breathing although still critically ill on high FiO2. Hypokalemia, potassium being replaced. Poor prognosis explained to the patient's 11/11: Improvement in breathing status and hypoxia. Patient looks less respiratory distress. Mild hypokalemia, potassium replaced glucose controlled I have discussed my assessment with HADOOP DEVELOPERSilva and orders have been reviewed Inpatient E&M: 15726 Subs Hosp L2
[2019-11-12 12:16] LABS: Bedside Glucose 134 mg/dL (70-110)
[2019-11-12] MEDS: Vital AF 1.2 Cal Liquid 1,000 ML 55 ML GT (16:17)
[2019-11-12 18:51] LABS: Bedside Glucose 139 mg/dL (70-110)
--- NOTE | 2019-11-12 20:59 | EKG12_ITS ---
Test Reason : TACHY Blood Pressure : / mmHG Vent. Rate : 136 BPM Atrial Rate : 136 BPM P-R Int : 120 ms QRS Dur : 102 ms QT Int : 348 ms P-R-T Axes : -02 -29 073 degrees QTc Int : 523 ms Sinus tachycardia Left ventricular hypertrophy with repolarization abnormality Inferior infarct , age undetermined Abnormal ECG Confirmed by JOSE BORREGO, GIUSEPPE ([id number]), online editor OTILIA LOPEZ ([id number]) on 11/16/2019 10:32:48 AM Referred By: DR SOLORIO Confirmed By:GIUSEPPE GARCIA MD
--- NOTE | 2019-11-12 21:50 | RAD_ITS ---
STUDY: X-RAY CHEST REASON FOR EXAM: Male, 69 years old. follow up chest tube, increased heart rate TECHNIQUE: 2 AP portable view of the chest. COMPARISON: November 10, 2019 FINDINGS: There are interstitial fibrotic changes of the lungs. Stable right upper lobe chest tube. No visualized pneumothorax. Consolidation in the inferior aspect of the right upper lobe and in the mid aspect of the right lower lobe appears slightly worsened and is moderate and severe. Moderate irregular fibrosis and possibly chronic consolidation is reidentified in the remaining bilateral lung pimentel. Stable left-sided PICC line. Top normal heart size. Suggestion of a small hiatal hernia. The visualized aspects of the osseous structures are stable. RAD/Chest 1 View (Portable) IMPRESSION: Appearance of worsening consolidation of the right upper and lower lobes moderate to severe. Electronically Signed: Ricky Das MD at 22:20 EDT , Service support ,
[2019-11-12] MEDS: Carvedilol 6.25 MG Tablet PO (22:30)
[2019-11-13] VITALS (15 sets, daily range): BP systolic 105–136; BP diastolic 74–84; PULSE 24–141; RESP 0–27; TEMP 36.6–37.2; O2SAT 88–97
[2019-11-13 00:16] LABS: Bedside Glucose 122 mg/dL (70-110)
[2019-11-13] MEDS: hydrALAZINE 10 MG Tablet GT (05:18)
[2019-11-13] MEDS: Isosorbide DN 10 MG Tablet GT (05:19)
[2019-11-13 05:23] LABS: Hematocrit 39.1 % (40-54); Hemoglobin 12.2 g/dL (13.0-16.5); Mean Corp Hgb Conc 31.2 g/dL (32-36); Mean Corpuscular Hgb 30.7 pg (27.0-32.0); Mean Corpuscular Volume 98.5 fL (80-94); Mean Platelet Vol. 12.5 fl (6.2-12.0); Platelet Count 566 K/mm3 (150-450); RBC Distribution Width SD 53.1 fl (35.1-43.9); Red Blood Count 3.97 M/mm3 (4.6-6.2)
[2019-11-13] MEDS: 0.9% Saline Lock 10 ML Syringe IV ×3 (05:25→06:35)
[2019-11-13 05:46] LABS: Bedside Glucose 148 mg/dL (70-110)
[2019-11-13 06:00] LABS: Anion Gap 6 (5-15); BUN 45 mg/dL (7-18); BUN/Creat Ratio 85.9 RATIO (10-20); Calcium,Total 8.7 mg/dL (8.5-10.1); Chloride 109 mmol/L (98-107); Creatinine, Serum 0.52 mg/dL (0.70-1.30); EST Glomerular Filtration Rate 165 mL/min (>60); Est Glom Filt Rate - Afr Amer 200 mL/min (>60); Estimated Creatinine Clearance 51.94 ml/min; Glucose 137 mg/dL (74-106); Potassium 4.2 mmol/L (3.5-5.1); Sodium Level 149 mmol/L (136-145)
[2019-11-13] MEDS: Furosemide 100 MG/10 ML Vial 60 MG IV (06:23)
--- NOTE | 2019-11-13 06:23 | NURSING ---
ATTEMPTED TO CALL [facility] TO UPDATE ON PATIENT
[2019-11-13] MEDS: Morphine 2 MG/ML Syringe IV (06:31)
--- NOTE | 2019-11-13 07:16 | PN_ITS ---
Patient Problems: Active and Suspected Problems (Last Reviewed 11/05/19 @ 01:[address] Adriano Benton MD) Cardiomyopathy (Acute) Pneumothorax on right (Acute) Pneumothorax, right (Acute) Subjective: The patient was seen and examined at the bedside this morning. Events from the last 24 hours have been reviewed. The patient has required increasing amounts of supplemental oxygen over the last 24 hours to maintain saturations. The patient appears more distressed this morning with wet sounding respirations and an air leak from his chest tube, which is increased from yesterday. A chest x- ray was repeated last night and did reveal worsening consolidation/infiltration of the right hemithorax. His white count has increased some this morning to 19,000. Objective: The patient's most recent lab work, culture data and imaging studies have all been personally reviewed. Blood and urine cultures have been unrevealing to date. Pleural fluid Gram stain revealed no evidence of organisms. - Physical Exam Vitals/I&O's: Vital Signs Temp Pulse Resp BP Pulse Ox 97.8 F 140 H 18 136/83 H 93 11/13/19 06:50 11/13/19 06:50 11/13/19 06:50 11/13/19 06:50 11/13/19 06:50 Oxygen Flow Rate (L/min) [3] 12 Oxygen Flow Rate (L/min) [2] 12 Oxygen Flow Rate (L/min) [1 ( 12 Initial Baseline)] Oxygen Flow Rate (L/min) 12 Oxygen Delivery Method [3] Nasal Cannula Oxygen Delivery Method [2] Nasal Cannula Oxygen Delivery Method [1 ( Nasal Cannula Initial Baseline)] Oxygen Delivery Method Nasal Cannula Weight: 112 lb 14.027 oz Body Mass Index (BMI) 19.1 Intake and Output for Last 24 Hours 11/11/19 11/12/19 11/13/19 23:59 23:59 23:59 Intake Total 2241.45 / 2241.45 1372.05 / 1372.05 319 / 319 Output Total 115 / 115 70 / 70 130 / 130 Balance 2126.45 / 2126.45 1302.05 / 1302.05 189 / 189 General: Alert, Confused, - - Appears uncomfortable and restless. Repeatedly moaning. HEENT: Atraumatic, Normocephalic Oral: Dry Mucosa Neck: Supple, No Nodes, Trachea Midline Lungs: Diminished, Rhonchi, Short of Breath, Tachypneic, - - Stable chest tube with air leak noted in atrium. Cardiovascular: Normal S1, Normal S2, Tachycardic Abdomen: Bowel Sounds Present, Soft, Non Tender, - - Stable PEG tube Extremities: No clubbing, No cyanosis, No edema Skin: - - No significant change from previous Musculoskeletal: Cachexia, Muscle Wasting Lymphatic: No Cervical, Supraclavicular, or Inguinal Adenopathy Neurological: Cranial nerves II-XII grossly intact Psych/Mental Status: Restless Labs (Last 48 Hours) 11/08/19 11/11/19 11/11/19 15:14 06:15 12:46 WBC RBC Hgb Hct MCV MCH MCHC RDW Std Deviation RDW Coeff of Xenia Plt Count MPV Sodium 143 Potassium 3.2 L Chloride 103 Carbon Dioxide 36.0 H Anion Gap 4 L BUN 34 H Creatinine 0.41 L Estim Creat Clear Calc 52.04 Est GFR (MDRD) Af Amer 264 Est GFR (MDRD) Non-Af 218 BUN/Creatinine Ratio 82.5 H Glucose 120 H Calcium 8.0 L Magnesium Total Bilirubin 0.60 AST 48 H ALT 35 Alkaline Phosphatase 170 H Total Protein 5.4 L Albumin 1.3 L Globulin 4.1 Albumin/Globulin Ratio 0.3 L Procalcitonin Fluid pH 7.4 POC Glucose 134 H 11/11/19 11/11/19 11/11/19 12:58 17:07 23:28 WBC RBC Hgb Hct MCV MCH MCHC RDW Std Deviation RDW Coeff of Xenia Plt Count MPV Sodium Potassium Chloride Carbon Dioxide Anion Gap BUN Creatinine Estim Creat Clear Calc Est GFR (MDRD) Af Amer Est GFR (MDRD) Non-Af BUN/Creatinine Ratio Glucose Calcium Magnesium Total Bilirubin AST ALT Alkaline Phosphatase Total Protein Albumin Globulin Albumin/Globulin Ratio Procalcitonin 0.34 H Fluid pH POC Glucose 114 H 142 H 11/12/19 11/12/19 11/12/19 06:30 07:00 07:00 WBC 11.3 H RBC 3.67 L Hgb 11.5 L Hct 36.5 L MCV 99.5 H MCH 31.3 MCHC 31.5 L RDW Std Deviation 52.2 H RDW Coeff of Xenia 14.7 H Plt Count 554 H MPV 12.6 H Sodium 148 H Potassium 3.1 L Chloride 105 Carbon Dioxide 38.0 H Anion Gap 5 BUN 38 H Creatinine 0.44 L Estim Creat Clear Calc 51.94 Est GFR (MDRD) Af Amer 241 Est GFR (MDRD) Non-Af 199 BUN/Creatinine Ratio 85.4 H Glucose 135 H Calcium 8.5 Magnesium 2.2 Total Bilirubin AST ALT Alkaline Phosphatase Total Protein Albumin Globulin Albumin/Globulin Ratio Procalcitonin Fluid pH POC Glucose 136 H 11/12/19 11/12/19 11/12/19 11:58 18:37 23:56 WBC RBC Hgb Hct MCV MCH MCHC RDW Std Deviation RDW Coeff of Xenia Plt Count MPV Sodium Potassium Chloride Carbon Dioxide Anion Gap BUN Creatinine Estim Creat Clear Calc Est GFR (MDRD) Af Amer Est GFR (MDRD) Non-Af BUN/Creatinine Ratio Glucose Calcium Magnesium Total Bilirubin AST ALT Alkaline Phosphatase Total Protein Albumin Globulin Albumin/Globulin Ratio Procalcitonin Fluid pH POC Glucose 134 H 139 H 122 H 11/13/19 11/13/19 11/13/19 04:45 04:45 05:40 WBC 19.0 H RBC 3.97 L Hgb 12.2 L Hct 39.1 L MCV 98.5 H MCH 30.7 MCHC 31.2 L RDW Std Deviation 53.1 H RDW Coeff of Xenia 15.0 H Plt Count 566 H MPV 12.5 H Sodium 149 H Potassium 4.2 Chloride 109 H Carbon Dioxide 34.0 H Anion Gap 6 BUN 45 H Creatinine 0.52 L Estim Creat Clear Calc 51.94 Est GFR (MDRD) Af Amer 200 Est GFR (MDRD) Non-Af 165 BUN/Creatinine Ratio 85.9 H Glucose 137 H Calcium 8.7 Magnesium Total Bilirubin AST ALT Alkaline Phosphatase Total Protein Albumin Globulin Albumin/Globulin Ratio Procalcitonin Fluid pH POC Glucose 148 H Microbiology 11/08/19 15:14 Fluid - Thoracentesis Fluid Gram Stain - Final 11/08/19 15:14 Fluid - Thoracentesis Fluid Body Fluid Culture - Final Culture exhibits no growth. 11/08/19 15:14 Fluid - Thoracentesis Fluid Anaerobic Culture - Preliminary No growth in 48 hours. Clinical Impression(s) from Imaging Studies Abdomen/Pelvis CT 11/04/19 22:27 IMPRESSION: 1. A new left mid abdominal PEG tube is present in the proximal one third aspect of the stomach. 2. A small amount of extraluminal air and tiny amounts of fluid are present in the left anterior intra-abdominal region directly adjacent to the portion of the stomach containing the PEG tube most likely related to recent placement procedure. 3. Test injection of the PEG tube with contrast in consultation with the service that placed the feeding tube can be performed to evaluate for possible extraluminal leakage. 4. Previously seen moderate bilateral pleural effusions are decreased in volume with a tiny amount seen on the right and a small amount remaining on the left. Electronically Signed: Ricky Das MD at 23:54 EDT , Service support , Chest X-Ray 11/04/19 23:00 IMPRESSION: 1. Chronic appearing scattered and consolidative fibrosis of both lungs, most prominent in the right upper lobe. 2. Cystic emphysematous changes Electronically Signed: Ricky Das MD at 23:33 EDT , Service support , Chest CTA 11/07/19 08:32 IMPRESSION: Moderate degree of bilateral pleural effusions with infiltration of the lung bases and new infiltrate in the right upper lobe superimposed on chronic emphysematous changes and bullous formation as well as pulmonary fibrosis. Electronically Signed: Flaco Gale, at 12:25 EDT , Service support , Abdomen CT 11/07/19 08:33 IMPRESSION: Stable examination. The PEG tube is not seen at this time. Electronically Signed: Flaco Gale, at 12:29 EDT , Service support , Chest X-Ray 11/08/19 05:00 IMPRESSION: Worsening bilateral airspace disease especially within the right lung likely representing pneumonia. Kyphoscoliosis with underlying chronic lung disease. at 0603 Reported and signed by: Yovany Workman MD Electronically Signed: Yovany Workman MD at 6:02 EDT Tel , Service support , Abdomen CT 11/08/19 08:19 IMPRESSION: A PEG tube is seen within the inferior portion of the stomach as described. No extravasation of oral contrast. Stable small amount of free extraluminal air adjacent to the medial aspect of the left lobe of the liver. Electronically Signed: Flaco Gale, at 10:28 EDT , Service support , Thoracentesis Ultrasound 11/08/19 10:15 IMPRESSION: Ultrasound-guided right thoracentesis.. Electronically Signed: Flaco Gale, at 15:20 EDT , Service support , Chest X-Ray 11/08/19 14:52 IMPRESSION: Status post right thoracentesis with a 10% right pneumothorax. Electronically Signed: Flaco Gale, at 15:08 EDT , Service support , Chest X-Ray 11/08/19 17:01 IMPRESSION: Tiny residual right apical pneumothorax with interval improvement status post chest tube placement. Findings otherwise unchanged since previous study Electronically Signed: Jaciel Rodriguez MD at 17:26 EDT , Service support , Chest X-Ray 11/09/19 05:00 IMPRESSION: Slight increase in size of right pleural effusion. Right pleural drain remains. Severe bilateral airspace disease persists. at 0526 Reported and signed by: Yovany Workman MD Electronically Signed: Yovany Workman MD at 5:25 EDT Tel , Service support , ADDENDUM: 11/09/19 0540 IMPRESSION: Slight increase in size of right pleural effusion. Right pleural drain remains. Severe bilateral airspace disease persists. at 0526 Reported and signed by: Yovany Workman MD N.B. : The above information has been verbally conveyed by Yovany Workman MD to Tanya Dorman RN, on 11/09/2019 05:33:42 (ET). Electronically Signed: Yovany Workman MD at 5:25 EDT Tel , Service support , Chest X-Ray 11/09/19 06:05 IMPRESSION: Persistent right-sided pneumothorax. Left pleural effusion and atelectasis. Diffuse interstitial infiltrates right greater than left. Electronically Signed: Mirela Mcallister MD at 6:30 EDT Tel , Service support , Chest X-Ray 11/09/19 11:40 IMPRESSION: Status post placement of a large bore chest tube with the tip in the medial apical portion of the right lung with minimal residual right pneumothorax. Electronically Signed: Flaco Gale, at 13:37 EDT , Service support , Chest X-Ray 11/10/19 05:10 IMPRESSION: Findings suggestive of for left pleural effusion and/or consolidation. Right upper lobe infiltrate. Right-sided chest tube tip in the right apex. No visualized pneumothorax. There is emphysema and chronic obstructive pulmonary disease. Electronically Signed: Mirela Mcallister MD at 6:06 EDT Tel , Service support , Chest X-Ray 11/12/19 21:50 IMPRESSION: Appearance of worsening consolidation of the right upper and lower lobes moderate to severe. Electronically Signed: Ricky Das MD at 22:20 EDT , Service support , Current Medications Acetaminophen (Tylenol) 650 mg RECTAL Q4H PRN PRN PRN Reason: Pain Score 1-10/Temp > 100.7 F Last Admin: 11/08/19 18:18 Dose: 650 mg Documented by: Albuterol/Ipratropium (Duoneb) 3 ml INHALATION Q6HWA.RT [facility] Last Admin: 11/12/19 19:42 Dose: Not Given Documented by: Aspirin (Aspirin, Baby) 81 mg GT DAILY@0800 [facility] Last Admin: 11/12/19 10:00 Dose: 81 mg Documented by: Calamine/Phenol (Calmoseptine Ointment) 1 applic TOPICAL BID [facility]; Protocol Last Admin: 11/12/19 22:24 Dose: 1 applicatio Documented by: Carvedilol (Coreg) 12.5 mg GT BID [facility] Dextrose (D50w Syringe) 0 gm IV X1 PRN; Protocol PRN Reason: Hypoglycemia Furosemide (Lasix) 40 mg IV DAILY [facility] Last Admin: 11/13/19 06:14 Dose: Not Given Documented by: Glucagon () 1 mg IM .X1 PRN PRN Reason: Hypoglycemia Hydralazine HCl (Apresoline) 10 mg GT TID [facility] [place] Last Admin: 11/13/19 05:18 Dose: 10 mg Documented by: Sodium Chloride () 250 mls @ 15 mls/hr IV .[id number] PRN PRN Reason: Saline Flush Sodium Chloride () 250 mls @ 15 mls/hr IV .[id number] PRN PRN Reason: Additional IVPB Infusion Meropenem 1 gm/ Sodium (Chloride) 120 mls @ 33 mls/hr IV Q8 [facility] [place] Last Admin: 11/13/19 05:13 Dose: 33 mls/hr Documented by: Enteral Nutritional Formula (Vital Af 1.2 Arun Liquid) 1,000 mls @ 55 mls/hr GT .[id number] [facility] [place] Last Admin: 11/12/19 20:58 Dose: Not Given Documented by: Insulin Human Lispro (Humalog Kwikpen (Bkc)) 0 unit SC Q6 [facility]; Protocol Last Admin: 11/13/19 05:40 Dose: Not Given Documented by: Isosorbide Dinitrate (Isordil) 10 mg GT TID [facility] [place] Last Admin: 11/13/19 05:19 Dose: 10 mg Documented by: Morphine Sulfate () 2 mg IV Q3H PRN PRN PRN Reason: Abdominal pain -04/14 Last Admin: 11/13/19 06:31 Dose: 2 mg Documented by: Ondansetron HCl (Zofran) 4 mg IV Q8H PRN PRN PRN Reason: NAUSEA/VOMITING Potassium Chloride (K-Dur) 40 meq PO BIDCM [facility] Stop: 11/14/19 17:01 Last Admin: 11/12/19 16:16 Dose: 40 meq Documented by: Sodium Chloride () 10 - 40 ml IV UD PRN PRN Reason: SALINE FLUSH Last Admin: 11/13/19 06:35 Dose: 10 ml Documented by: Medical Necessity - Tobacco Use Smoking Status: Former smoker Assessment/Plan All Active Problems (Last Reviewed 11/05/19 @ 01:[address] Adriano Benton MD) Cardiomyopathy (Acute) Pneumothorax on right (Acute) Pneumothorax, right (Acute) Acute on chronic systolic (congestive) heart failure (Acute) Severe sepsis (Acute) RECOMMENDATIONS: 1. Continue chest tube to wall suction until air leak resolves. 2. Wean oxygen to maintain saturations at or above 90%. 3. Continue antimicrobials. 4. Aspiration precautions and aggressive bronchopulmonary hygiene 5. Continue scheduled Lasix. 6. Consider adding vancomycin. Continue meropenem for now. IMPRESSIONS: 1. Acute hypoxemic respiratory failure Likely multifactorial in etiology with decompensated heart failure and healthcare associated/aspiration pneumonia contributing. The patient was noted to have an elevated BNP and troponin. He is overall net positive for the hospital admission. Attempts at ultrasound-guided thoracentesis was successful in removing just under 1 L of borderline exudative pleural fluid. However, the patient sustained an iatrogenic pneumothorax and had to have a chest tube placed. Unfortunately, the patient continues to have a persistent air leak. At this time, agree with continuing attempts at volume optimization with diuretic therapy as tolerated by renal function. Continue chest tube to wall suction and avoid BiPAP utilization. Wean oxygen as tolerated. I do suspect that the borderline exudative pleural fluid criteria is likely secondary to the use of diuretics, as opposed to infectious in etiology. The patient's overall prognosis is quite poor. Continue empiric antimicrobials. Code Status remains DNRCCA/DNI. This note was generated with [employer] dictation software. It may contain incorrect words, spelling, and punctuation that were not noted in checking the note before signing. Inpatient E&M: 68789 Subs Hosp L2
[2019-11-13] MEDS: Ipratropium/Albuterol Sulfate 3 ML AMPUL.NEB INHALATION (07:27)
--- NOTE | 2019-11-13 08:00 | PCM.PN.SRG ---
Patient Problems: Active and Suspected Problems (Last Reviewed 11/05/19 @ 01:[address] Adriano Benton MD) Cardiomyopathy (Acute) Pneumothorax on right (Acute) Pneumothorax, right (Acute) Subjective: Patient still has a persistent small air leak. Chest x-ray from yesterday showed the tube to be in good placement Objective: Diminished sounds on the right - Physical Exam Vitals/I&O's: Vital Signs Temp Pulse Resp BP Pulse Ox 99.0 F 135 H 24 H 136/84 H 97 11/13/19 07:00 11/13/19 07:28 11/13/19 07:28 11/13/19 07:00 11/13/19 07:28 Oxygen Flow Rate (L/min) [3] 12 Oxygen Flow Rate (L/min) [2] 12 Oxygen Flow Rate (L/min) [1 ( 12 Initial Baseline)] Oxygen Flow Rate (L/min) 13 Oxygen Delivery Method [3] Nasal Cannula Oxygen Delivery Method [2] Nasal Cannula Oxygen Delivery Method [1 ( Nasal Cannula Initial Baseline)] Oxygen Delivery Method Nasal Cannula Weight: 112 lb 14.027 oz Body Mass Index (BMI) 19.1 Intake and Output for Last 24 Hours 11/11/19 11/12/19 11/13/19 23:59 23:59 23:59 Intake Total 2241.45 / 2241.45 1372.05 / 1372.05 319 / 319 Output Total 115 / 115 70 / 70 130 / 130 Balance 2126.45 / 2126.45 1302.05 / 1302.05 189 / 189 Microbiology Past 72 Hours 11/08/19 15:14 Fluid - Thoracentesis Fluid Gram Stain - Final 11/08/19 15:14 Fluid - Thoracentesis Fluid Body Fluid Culture - Final Culture exhibits no growth. 11/08/19 15:14 Fluid - Thoracentesis Fluid Anaerobic Culture - Preliminary No growth in 48 hours. 11/08/19 10:46 Blood Culture (Wb) - Right Hand Blood Culture - Preliminary No growth in 48 hours. 11/08/19 10:30 Blood Culture (Wb) - Right Wrist Blood Culture - Preliminary No growth in 48 hours. 11/04/19 23:25 Blood Culture (Wb) - Right Hand Blood Culture - Final No growth in 5 days. 11/04/19 22:15 Blood Culture (Wb) - Pic Blood Culture - Final No growth in 5 days. Laboratory Results 11/12/19 07:00: Sodium 148 H, Potassium 3.1 L, Chloride 105, Carbon Dioxide 38.0 H, Anion Gap 5, BUN 38 H, Creatinine 0.44 L, Estim Creat Clear Calc 51.94, Est GFR (MDRD) Af Amer 241, Est GFR (MDRD) Non-Af 199, BUN/Creatinine Ratio 85.4 H, Glucose 135 H, Calcium 8.5, Magnesium 2.2 11/12/19 11:58: POC Glucose 134 H 11/12/19 18:37: POC Glucose 139 H 11/12/19 23:56: POC Glucose 122 H 11/13/19 04:45: WBC 19.0 H, RBC 3.97 L, Hgb 12.2 L, Hct 39.1 L, MCV 98.5 H, MCH 30.7, MCHC 31.2 L, RDW Std Deviation 53.1 H, RDW Coeff of Xenia 15.0 H, Plt Count 566 H, MPV 12.5 H 11/13/19 04:45: Sodium 149 H, Potassium 4.2, Chloride 109 H, Carbon Dioxide 34.0 H, Anion Gap 6, BUN 45 H, Creatinine 0.52 L, Estim Creat Clear Calc 51.94, Est GFR (MDRD) Af Amer 200, Est GFR (MDRD) Non-Af 165, BUN/Creatinine Ratio 85.9 H, Glucose 137 H, Calcium 8.7 11/13/19 05:40: POC Glucose 148 H Current Medications Acetaminophen (Tylenol) 650 mg RECTAL Q4H PRN PRN PRN Reason: Pain Score 1-10/Temp > 100.7 F Last Admin: 11/08/19 18:18 Dose: 650 mg Documented by: Albuterol/Ipratropium (Duoneb) 3 ml INHALATION Q6HWA.RT [facility] Last Admin: 11/13/19 07:27 Dose: 3 ml Documented by: Aspirin (Aspirin, Baby) 81 mg GT DAILY@0800 [facility] Last Admin: 11/12/19 10:00 Dose: 81 mg Documented by: Calamine/Phenol (Calmoseptine Ointment) 1 applic TOPICAL BID [facility]; Protocol Last Admin: 11/12/19 22:24 Dose: 1 applicatio Documented by: Carvedilol (Coreg) 12.5 mg GT BID [facility] Dextrose (D50w Syringe) 0 gm IV X1 PRN; Protocol PRN Reason: Hypoglycemia Furosemide (Lasix) 40 mg IV DAILY [facility] Last Admin: 11/13/19 06:14 Dose: Not Given Documented by: Glucagon () 1 mg IM .X1 PRN PRN Reason: Hypoglycemia Hydralazine HCl (Apresoline) 10 mg GT TID [facility] Last Admin: 11/13/19 05:18 Dose: 10 mg Documented by: Sodium Chloride () 250 mls @ 15 mls/hr IV .[id number] PRN PRN Reason: Saline Flush Sodium Chloride () 250 mls @ 15 mls/hr IV .[id number] PRN PRN Reason: Additional IVPB Infusion Meropenem 1 gm/ Sodium (Chloride) 120 mls @ 33 mls/hr IV Q8 [facility] Last Admin: 11/13/19 05:13 Dose: 33 mls/hr Documented by: Enteral Nutritional Formula (Vital Af 1.2 Arun Liquid) 1,000 mls @ 55 mls/hr GT .[id number] [facility] Last Admin: 11/12/19 20:58 Dose: Not Given Documented by: Insulin Human Lispro (Humalog Kwikpen (Bkc)) 0 unit SC Q6 [facility]; Protocol Last Admin: 11/13/19 05:40 Dose: Not Given Documented by: Isosorbide Dinitrate (Isordil) 10 mg GT TID [facility] Last Admin: 11/13/19 05:19 Dose: 10 mg Documented by: Morphine Sulfate () 2 mg IV Q3H PRN PRN PRN Reason: Abdominal pain -04/14 Last Admin: 11/13/19 06:31 Dose: 2 mg Documented by: Ondansetron HCl (Zofran) 4 mg IV Q8H PRN PRN PRN Reason: NAUSEA/VOMITING Potassium Chloride (K-Dur) 40 meq PO BIDCM [facility] Stop: 11/14/19 17:01 Last Admin: 11/12/19 16:16 Dose: 40 meq Documented by: Sodium Chloride () 10 - 40 ml IV UD PRN PRN Reason: SALINE FLUSH Last Admin: 11/13/19 06:35 Dose: 10 ml Documented by: Medical Necessity - Tobacco Use Smoking Status: Former smoker Assessment/Plan All Active Problems (Last Reviewed 11/05/19 @ 01:[address] Adriano Benton MD) Cardiomyopathy (Acute) Pneumothorax on right (Acute) Pneumothorax, right (Acute) Acute on chronic systolic (congestive) heart failure (Acute) Severe sepsis (Acute) Unable to put the tube to waterseal today.
--- NOTE | 2019-11-13 08:35 | NURSING ---
Patient found to be unresponsive with no pulse or breath sounds. Verified with Frank charge manager. Roselyn GOMEZ also in room to declare time of at 0816. Attempted to notify of patient's condition at this time with no answer. Left voicemail to return this RN's phone call.
--- NOTE | 2019-11-13 11:01 | PCM.DEATH ---
<Silva Bonner - Last Filed: 11/13/19 11:36> Preliminary Cause of Acute hypoxic respiratory failure Date of Admission: 10/28/19 Date of : 11/13/19 - Principle Diagnosis 1. Acute hypoxic respiratory failure, multifactorial secondary to HCAP and acute on chronic systolic CHF- S/P thoracentesis 11/07 complicated by pneumothorax with right chest tube placement 11/07. 2. Severe sepsis, suspected secondary to HCAP 3. Dysphagia s/p PEG tube placement 4. Acute metabolic encephalopathy 5. Abnormal troponin, demand ischemia as result of #1/#2 6. Emphysema/COPD 7. Severe protein calorie malnutrition 8. Thrombocytopenia 9. Hypertension 10. Type 2 diabetes mellitus 11. Abdominal aortic aneurysm Problem List: Active and Suspected Problems (Last Reviewed 11/05/19 @ 01:[address] Adriano Benton MD) Hospital Course Patient admitted 11/05/2019 due to abdominal pain. 1. Acute hypoxic respiratory failure, multifactorial secondary to HCAP and acute on chronic systolic CHF- S/P thoracentesis 11/07 complicated by pneumothorax with right chest tube placement 11/07. Large bore chest tube placed. Pleural fluid consistent with exudative based on pleural fluid analysis. IV meropenem. ID following. IV Lasix. Dr. Willson and Dr. Lynne following. Continue supplement oxygen to maintain O2 sat above 90%. No BiPAP given pneumothorax. Cardiology following. Echocardiogram 11/07/2019 demonstrated an EF of 40%, pulmonary artery systolic pressure 50 mmHg, moderate pulmonary hypertension, mild to moderate mitral valve insufficiency, mild to moderate aortic valve insufficiency. During night 11/13/2019 patient required increased oxygenation. Morning 11/13/2019 patient's heart rate became bradycardia, patient assessed and found to be without pulse. Patient DNR CCA no intubation therefore resuscitation efforts were not initiated. 2. Severe sepsis, suspected secondary to HCAP-IV meropenem during admission. 3. Dysphagia s/p PEG tube placement 4. Acute metabolic encephalopathy-secondary to #1/#2. 5. Abnormal troponin, demand ischemia as result of #1/#2 6. Emphysema/COPD-no acute exacerbation. 7. Severe protein calorie malnutrition-dietitian consulted. 8. Thrombocytopenia- resolved. 9. Hypertension 10. Type 2 diabetes mellitus 11. Abdominal aortic aneurysm-as noted on recent CT abdomen, 5.1 cm. <Kvng Mas - Last Filed: 11/13/19 13:02> Hospital Course This patient was seen in conjunction with FIRE MANAGEMENT TECHNICIAN, Silva. I have independently interviewed and examined the patient and reviewed pertinent history, examination findings, laboratory and plan of management. I have reviewed the note and agree with the documented findings with the few additional points. In brief, patient was admitted for acute metabolic encephalopathy probably secondary to intra-abdominal infection: Patient had free air under diaphragm on prior imaging but repeat CT abdomen did not show it. Subsequently patient had PEG tube on last Thursday while he was in TCU and then had tachycardia. Repeat CT with oral contrast was done which reported stable but no PEG tube seen. CT chest did not show PE but bilateral pleural effusion, right more than left with underlying infiltrate and atelectasis. Chronic fibrosis and cystic and bullous appearance of emphysematous disease. New infiltrate on right upper lobe. On IV cefepime. Vancomycin and Flagyl discontinued as patient did not had fever for last 3 days, blood cultures negative for more than 48 hours and urine culture negative. Subsequently, patient had right-sided ultrasound-guided thoracocentesis and about 1000 mL of imtiaz-colored fluid removed. Fluid analysis as per light criteria is suggestive of exudate as fluid LDH is more than two third of upper limit of serum LDH probably secondary to diuretic effect although clinically seems transudate. Patient had pneumothorax and then had pigtail placed. Continues to have air leak. Pneumothorax better with small residual in right apex. Goal of life discussed with the patient and his near the bedside along with surgeon Dr. Willson and SHARLA Garcia. Patient had right-sided chest tube placed after removal of pigtail catheter. 500 cc of straw-colored fluid was also removed. Patient still has air leak. Prognosis poor. CODE STATUS remains same DNR CC arrest with no intubation. After that, patient remained tachycardic, tachypneic and severe hypoxia 100% nonrebreather. Prognosis discussed with the patient's Janee Bhandari on phone and clinical update given. Still significant persistent air leak. Thoracocentesis fluid culture with no growth at 48 hours. Other infectious work-up negative. On empiric antibiotic, IV meropenem. After that, there was slight improvement in breathing, oxygen requirement decreased to 5 to 6 L/min on 11/12/2019 but it increased overnight and then in the morning 10 L/min. Patient had intermittent hypokalemia with potassium being replaced. Patient DNR CC arrest. Chest tube showed decreased air leak intermittently. Patient DNR CC arrest with no intubation therefore no distention performed as per the patient's face. Patient on broad-spectrum IV antibiotic meropenem empirically even though blood cultures were negative on 11/03 and 11/07. Thoracocentesis fluid did not show any growth. Urine cultures are negative. The patient at 8:16 AM on 11/13/2019. Patient's was in close communication lobe throughout the hospital course and today I informed her about the . Adequate grieving was done to patient's . I have discussed my assessment with FIRE MANAGEMENT TECHNICIANSilva and orders have been reviewed Inpatient E&M: [id number] Disch Hosp
== END 2019-11-13 08:16 | DRG 871 ==
LOC: ED 11-05 00:18 → MS2 11-05 01:04 → PCU 11-05 20:01
PROVIDERS: Internal Medicine Infectious Disease; Nurse Practitioner Family; Physician Assistant; Admitting Provider Hospitalist; Emergency Provider Emergency Medicine; Visit Provider Internal Medicine
DX: A41.9 Sepsis, unspecified organism (principal); J96.01 Acute respiratory failure with hypoxia; J95.811 Postprocedural pneumothorax; I50.23 Acute on chronic systolic (congestive) heart failure; J18.9 Pneumonia, unspecified organism; G93.41 Metabolic encephalopathy; E43 Unspecified severe protein-calorie malnutrition; J44.0 Chronic obstructive pulmonary disease with (acute) lower respiratory infection; J91.8 Pleural effusion in other conditions classified elsewhere; I42.9 Cardiomyopathy, unspecified; Z68.1 Body mass index [BMI] 19.9 or less, adult; I24.8 Other forms of acute ischemic heart disease; J98.11 Atelectasis; J95.812 Postprocedural air leak; R65.20 Severe sepsis without septic shock; I11.0 Hypertensive heart disease with heart failure; I71.4 Abdominal aortic aneurysm, without rupture; E11.51 Type 2 diabetes mellitus with diabetic peripheral angiopathy without gangrene; F10.10 Alcohol abuse, uncomplicated; M48.02 Spinal stenosis, cervical region; I25.10 Atherosclerotic heart disease of native coronary artery without angina pectoris; E78.5 Hyperlipidemia, unspecified; D69.6 Thrombocytopenia, unspecified; R13.10 Dysphagia, unspecified; R47.02 Dysphasia; Z66 Do not resuscitate; Z93.1 Gastrostomy status; Z87.891 Personal history of nicotine dependence; Y83.8 Other surgical procedures as the cause of abnormal reaction of the patient, or of later complication, without mention of misadventure at the time of the procedure; E87.6 Hypokalemia; Z51.5 Encounter for palliative care; Z82.49 Family history of ischemic heart disease and other diseases of the circulatory system; I08.0 Rheumatic disorders of both mitral and aortic valves
CPT/HCPCS: 32555; 36415; 36569; 36592; 36600; 71045; 71046; 71275; 74150; 74160; 74176; 80048; 80053; 80076; 80202; 81001; 82803; 82945; 82962; 83605; 83615; 83735; 83880; 83986; 84100; 84145; 84156; 84157; 84478; 84484; 85025; 85027; 85379; 85610; 85730; 87040; 87070; 87075; 87086; 87205; 87635; 87641; 88108; 88305; 88313; 88341; 88342; 89050; 92526; 92611; 93005; 93306; 94002; 94003; 94640; 96360; 96361; 97110; 97162; 97166; 97530; 97535; 97802; 97803; 99284; 99406; G2023; J2185; J7030; J7040; J7050; J7120; P9612; Q9967; A4216; J1940; J2405; U0004